=== PATIENT | male | born 1955 | race Caucasian/White ===

== ENCOUNTER 2016-03-19 09:49 | Day surgery (SDC) | payer OTHER ==
[2016-03-19 10:35] LABS: Mean Platelet Volume 7.4
[2016-03-19 10:36] LABS: INR 1.2 (<1.1); Prothrombin Time 12.3 sec (9.0-12.0)
[2016-03-19 11:51] VITALS: RESP 18; TEMP 98.1
[2016-03-19 13:24] VITALS: BP 133/76; PULSE 97
--- NOTE | 2016-03-19 14:08 | US ---
EXAMINATION TYPE: US paracentesis abd w/image DATE OF EXAM: 03/19/2016 1:19 PM COMPARISON: NONE HISTORY: Ascites. PROCEDURE: Maximal barrier technique was utilized. The skin overlying a suitable pocket of fluid was localized with ultrasound and the overlying skin was prepped and draped. Ultrasound was utilized with sterile technique. Lidocaine was used for local anesthesia and a skin gilbert made with a scalpel. Catheter was advanced under direct ultrasound guidance into a suitable pocket of fluid and approximately 9 liters of serous fluid were removed. Catheter was withdrawn and hemostasis achieved. There is no immediate complication; the patient is discharged in stable condition. IMPRESSION: STATUS POST ULTRASOUND GUIDED PARACENTESIS FOR PALLIATION OF ASCITES. THIS PROCEDURE WA S PERFORMED BY THE UNDERSIGNED.
== END 2016-03-19 13:26 | disposition home or self-care (01) ==
LOC: RADPROMAIN 09:49
PROVIDERS: ATTEND Family Medicine
DX: R18.8 Other ascites (principal)
CPT/HCPCS: 36415; 49083; 85049; 85610

== ENCOUNTER 2016-04-09 10:15 | Day surgery (SDC) | payer OTHER ==
[2016-04-09 10:33] VITALS: RESP 14; TEMP 97.7
[2016-04-09 10:35] LABS: Mean Platelet Volume 7.7
[2016-04-09 10:45] LABS: Non-African American GFR(MDRD) >60 (>60 ml/min/1.73 sqM)
[2016-04-09 10:47] LABS: INR 1.2 (<1.1)
[2016-04-09 12:38] VITALS: BP 153/77; PULSE 76
--- NOTE | 2016-04-09 14:44 | US ---
EXAMINATION TYPE: US paracentesis abd w/image DATE OF EXAM: 04/09/2016 1:04 PM COMPARISON: NONE HISTORY: Ascites. PROCEDURE: Maximal barrier technique was utilized. The skin overlying a suitable pocket of fluid was localized with ultrasound and the overlying skin was prepped and draped. Ultrasound was utilized with sterile technique. Lidocaine was used for local anesthesia and a skin gilbert made with a scalpel. Catheter was advanced under direct ultrasound guidance into a suitable pocket of fluid and approximately 7 liters of serous fluid were removed. Catheter was withdrawn and hemostasis achieved. There is no immediate complication; the patient is discharged in stable condition. IMPRESSION: STATUS POST ULTRASOUND GUIDED PARACENTESIS FOR PALLIATION OF ASCITES. THIS PROCEDURE WA S PERFORMED BY THE UNDERSIGNED.
== END 2016-04-09 13:15 | disposition home or self-care (01) ==
LOC: RADPROMAIN 10:15
PROVIDERS: ATTEND Family Medicine
DX: R18.8 Other ascites (principal); Z88.5 Allergy status to narcotic agent; Z88.8 Allergy status to other drugs, medicaments and biological substances
CPT/HCPCS: 49083; 82565; 82947; 85049; 85610

== ENCOUNTER 2016-04-30 08:28 | Day surgery (SDC) | payer OTHER ==
[~2016-04-30 08:28] MED LIST: SODIUM BICARB 4% 5 ML VIAL (0.48 MEQ/ML) MISCELLANE PRN
[2016-04-30 09:05] VITALS: RESP 20; TEMP 97.7
[2016-04-30 09:14] LABS: Mean Platelet Volume 7.9
[2016-04-30 09:23] LABS: Non-African American GFR(MDRD) >60 (>60 ml/min/1.73 sqM)
[2016-04-30 09:28] LABS: INR 1.2 (<1.1); Prothrombin Time 12.1 sec (9.0-12.0)
[2016-04-30 11:51] VITALS: BP 119/68; PULSE 99
--- NOTE | 2016-04-30 11:53 | US ---
EXAMINATION TYPE: US paracentesis abd w/image DATE OF EXAM: 04/30/2016 11:50 AM CLINICAL HISTORY: Ascites The procedure was discussed with the patient. The risks, complications, benefits, and alternatives we re discussed and any questions were answered. Informed consent was obtained. The patient was placed s upine on the ultrasound table and prepped and draped in the usual sterile fashion. All elements of maximal barrier technique were utilized. Under ultrasound guidance, access into the right lower quadrant was obtained, via the paracentesis catheter system and direct ultrasound guidanc e. Approximately 9.1 liters of straw-colored fluid was removed. The patient was stable throughout the pr ocedure and remained stable upon discharge from Department of Radiology. IMPRESSION: Successful therapeutic paracentesis under ultrasound guidance.
== END 2016-04-30 12:10 | disposition home or self-care (01) ==
LOC: RADPROMAIN 08:28
PROVIDERS: ATTEND Family Medicine
DX: R18.8 Other ascites (principal); Z88.5 Allergy status to narcotic agent; Z88.8 Allergy status to other drugs, medicaments and biological substances
CPT/HCPCS: 36415; 49083; 82565; 85049; 85610

== ENCOUNTER 2016-05-20 11:40 | Day surgery (SDC) | payer OTHER ==
[2016-05-20 12:58] LABS: Mean Platelet Volume 7.9
[2016-05-20 12:59] LABS: Non-African American GFR(MDRD) >60 (>60 ml/min/1.73 sqM)
[2016-05-20 13:00] LABS: INR 1.3 (<1.1); Prothrombin Time 12.4 sec (9.0-12.0)
[2016-05-20 13:12] VITALS: RESP 16; TEMP 98.3
[2016-05-20 13:50] LABS: Glucose,Whole Blood 78 mg/dL (75-99)
--- NOTE | 2016-05-20 15:04 | US ---
Therapeutic paracentesis. CLINICAL HISTORY: Ascites The procedure was discussed with the patient. The risks, complications, benefits, and alternatives we re discussed and any questions were answered. Informed consent was obtained. The patient was placed s upine on the ultrasound table and prepped and draped in the usual sterile fashion. All elements of maximal barrier technique were utilized. Under ultrasound guidance, access into the right lower quadrant was obtained, via the paracentesis catheter system and direct ultrasound guidanc e. Approximately 8.8 liters of straw-colored fluid was removed. The patient was stable throughout the pr ocedure and remained stable upon discharge from Department of Radiology. IMPRESSION: Successful therapeutic paracentesis under ultrasound guidance.
[2016-05-20 15:20] VITALS: BP 131/77; PULSE 79
== END 2016-05-20 15:20 | disposition home or self-care (01) ==
LOC: RADPROMAIN 11:40
PROVIDERS: ATTEND Family Medicine
DX: R18.8 Other ascites (principal)
CPT/HCPCS: 36415; 49083; 82565; 85049; 85610

== ENCOUNTER 2016-06-05 12:07 | Day surgery (SDC) | payer OTHER ==
[2016-06-05 12:48] LABS: Mean Platelet Volume 7.4
[2016-06-05 12:56] LABS: INR 1.2 (<1.1); Prothrombin Time 12.1 sec (9.0-12.0)
[2016-06-05 15:01] VITALS: RESP 16; TEMP 97.8
--- NOTE | 2016-06-05 16:21 | US ---
EXAMINATION TYPE: US paracentesis abd w/image DATE OF EXAM: 06/05/2016 4:15 PM COMPARISON: NONE HISTORY: Ascites. PROCEDURE: Maximal barrier technique was utilized. The skin overlying a suitable pocket of fluid was localized with ultrasound and the overlying skin was prepped and draped. Ultrasound was utilized with sterile technique. Lidocaine was used for local anesthesia and a skin gilbert made with a scalpel. Catheter was advanced under direct ultrasound guidance into a suitable pocket of fluid and approximately 8 liters of serous fluid were removed. Catheter was withdrawn and hemostasis achieved. There is no immediate complication; the patient is discharged in stable condition. IMPRESSION: STATUS POST ULTRASOUND GUIDED PARACENTESIS FOR PALLIATION OF ASCITES. THIS PROCEDURE WA S PERFORMED BY THE UNDERSIGNED.
[2016-06-05 16:56] VITALS: BP 122/78; PULSE 74
== END 2016-06-05 15:35 | disposition home or self-care (01) ==
LOC: RADPROMAIN 12:07
PROVIDERS: ATTEND Family Medicine
DX: R18.8 Other ascites (principal)
CPT/HCPCS: 49083; 85049; 85610

== ENCOUNTER 2016-06-16 12:27 | Observation (INO) | payer OTHER ==
[2016-06-16] MEDS ORDERED: NITROGLYCERIN OINT 1 INCH/GM PACKET TOPICAL STA (13:47)
[2016-06-16] MEDS ORDERED: ASPIRIN 81 MG CHEW PO STA (13:47)
[2016-06-16] MEDS ORDERED: MORPHINE SULFATE 4 MG/ML SYRINGE IV STA (13:47)
[2016-06-16] MEDS ORDERED: ONDANSETRON 4 MG/2 ML VIAL IVP STA (13:47)
[2016-06-16] MEDS ORDERED: IPRATROPIUM-ALBUTEROL 3 ML NEB INHALATION STA (13:49)
--- NOTE | 2016-06-16 14:06 | XR ---
EXAMINATION TYPE: XR chest 2V DATE OF EXAM: 06/16/2016 1:59 PM COMPARISON: 03/07/2016 TECHNIQUE: PA and lateral views submitted. HISTORY: Chest pain FINDINGS: The lungs are clear and there is no pneumothorax, pleural effusion, or focal pneumonia. Previous fuentes rgery overlying the cervical spine. Arthropathy of the shoulders with probable calcific tendinosis on the left. Cardiomegaly is noted. Prominence of the hilum likely related to pulmonary arterial hypertension appe ars stable. Coarsened interstitium noted. IMPRESSION: 1. Coarsened interstitial pattern likely chronic correlate for mild interstitial chronic lung disease including pulmonary fibrosis. No acute infiltrate. 2. Hilar prominence stable dating back to 04/25/2014 likely in the basis of pulmonary arterial hyperte nsion. Correlate clinically.
[2016-06-16 14:18] LABS: Basophils % (A) 0 %; CH 30.2; CHCM 32.3; Eosinophils # (A) 0.1 k/uL (0-0.7); Eosinophils % (A) 1 %; HCT 48.3 % (39.0-53.0); HDW 2.18; HGB 15.7 gm/dL (13.0-17.5); Luc # (Auto) 0.19; Luc % (Auto) 2; Lymphocytes # (A) 1.2 k/uL (1.0-4.8); Lymphocytes % (A) 15 %; MCH 30.4 pg (25.0-35.0); MCHC 32.4 g/dL (31.0-37.0); Mean Platelet Volume 7.4; Monocytes # (A) 0.7 k/uL (0-1.0); Monocytes % (A) 9 %; Neutrophils # (A) 6.1 k/uL (1.3-7.7); Neutrophils % (A) 73 %; RBC 5.14 m/uL (4.30-5.90); RDW 14.7 % (11.5-15.5); WBC 8.3 k/uL (3.8-10.6); WBC (Perox) 7.99
[2016-06-16 14:21] LABS: INR 1.2 (<1.1); Partial Thromboplastin Time 26.2 sec (22.0-30.0); Prothrombin Time 11.6 sec (9.0-12.0)
[2016-06-16 14:34] LABS: ALT 31 U/L (21-72); AST 35 U/L (17-59); Alkaline Phosphatase 210 U/L (38-126); Anion Gap 10 mmol/L; Blood Urea Nitrogen 13 mg/dL (9-20); Calcium 9.2 mg/dL (8.4-10.2); Carbon Dioxide 28 mmol/L (22-30); Chloride 102 mmol/L (98-107); Glucose 98 mg/dL (74-99); Magnesium 1.8 mg/dL (1.6-2.3); Non-African American GFR(MDRD) >60 (>60 ml/min/1.73 sqM); Potassium 4.6 mmol/L (3.5-5.1); Sodium 140 mmol/L (137-145); Total Protein 5.9 g/dL (6.3-8.2)
[2016-06-16 14:55] LABS: Troponin I 0.021 ng/mL (0.000-0.034)
[2016-06-16 14:59] LABS: Creatine Kinase MB 5.2 ng/mL (0.0-2.4)
--- NOTE | 2016-06-16 15:03 | US ---
EXAMINATION TYPE: US venous doppler duplex LE BI DATE OF EXAM: 06/16/2016 2:44 PM COMPARISON: NONE CLINICAL HISTORY: Pain. SIDE PERFORMED: Bilateral VESSELS IMAGED: External Iliac Vein (EIV) Common Femoral Vein Deep Femoral Vein Greater Saphenous Vein * Femoral Vein Popliteal Vein Proximal Calf Veins (* superficial vessels) Right Leg: Negative for DVT Left Leg: Negative for DVT No popliteal fossa lesion is seen. IMPRESSION: THIS EXAMINATION IS NEGATIVE FOR DVT IN BOTH LEGS.
[2016-06-16] MEDS ORDERED: RX INFO: IV CONTRAST WAS GIVEN 1 EACH MISC MISCELLANE PRN (15:56)
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
--- NOTE | 2016-06-16 17:29 | CT ---
EXAMINATION TYPE: CT angio chest DATE OF EXAM: 06/16/2016 5:14 PM COMPARISON: NONE HISTORY: Productive cough and chest discomfort CT DLP: 412 mGycm Automated exposure control for dose reduction was used. CONTRAST: CTA scan of the thorax is performed with IV Contrast, patient injected with 100 mL of Omnipaque 300, pulmonary embolism protocol. . FINDINGS: There are 3-D post processed images. Heart is enlarged. There is atherosclerotic vascular calcification. There are large central pulmonary arteries. There are filling defects in the right lower lobe pulmonary artery. There is calcified lymph nodes in the mediastinum. There are no hilar masses. There is coarse interst itial pulmonary density. I see no pulmonary mass. There is no pleural effusion. There is a large amou nt of ascites fluid noted. IMPRESSION: RIGHT LOWER LOBE MULTIPLE PULMONARY EMBOLI. EMBOLI APPEAR DECREASED COMPARED TO THE LAST CT SCAN OF 1 05/08/2015. CARDIOMEGALY. ATHEROSCLEROTIC VASCULAR DISEASE. 4 CM ANEURYSM OF THE ASCENDING AORTA. HEAL ED GRANULOMATOUS DISEASE. ASCITES. I SEE NO NEW PULMONARY EMBOLI COMPARED TO LAST CT SCAN OF 03/07/20 16. PULMONARY FIBROTIC CHANGES.
[2016-06-16] MEDS ORDERED: NITROGLYCERIN SL TABS 0.4 MG TAB SUBLINGUAL PRN (17:34)
[2016-06-16] MEDS ORDERED: ALBUTEROL NEBULIZED 2.5 MG/3 ML INHALATION PRN (17:39)
[2016-06-16] MEDS ORDERED: IPRATROPIUM-ALBUTEROL 3 ML NEB INHALATION PRN (17:39)
[2016-06-16] MEDS: MORPHINE SULFATE 4 MG/ML SYRINGE IV PRN ×2 (18:24→21:28)
[2016-06-16] MEDS ORDERED: metFORMIN 500 MG TAB PO SCH (18:30)
[2016-06-16 20:43] LABS: Troponin I 0.016 ng/mL (0.000-0.034)
[2016-06-16 20:49] LABS: Creatine Kinase MB 4.4 ng/mL (0.0-2.4)
[2016-06-16] MEDS ORDERED: ENOXAPARIN 120 MG/0.8 ML SYRINGE SQ SCH (21:00)
[2016-06-16] MEDS ORDERED: ATORVASTATIN 80 MG TAB PO SCH (21:00)
[2016-06-16 21:02] LABS: Glucose,Whole Blood 123 mg/dL (75-99)
[2016-06-16] MEDS: HYDROcodone/APAP 10-325MG 1 EACH TAB PO PRN (21:31)
[2016-06-16] MEDS: NITROGLYCERIN OINT 1 INCH/GM PACKET TOPICAL SCH (21:33)
[2016-06-16] MEDS: SPIRONOLACTONE 25 MG TAB PO SCH (21:35)
[2016-06-16] MEDS: METOPROLOL TARTRATE 50 MG TAB PO SCH (21:35)
[2016-06-16] MEDS: CYCLOBENZAPRINE 10 MG TAB PO SCH (21:35)
[2016-06-16] MEDS: FAMOTIDINE 20 MG TAB PO SCH (21:35)
[2016-06-16] MEDS: INSULIN LISPRO (humaLOG) 300 UNIT/3 ML VIAL SQ SCH (21:36)
[2016-06-16] MEDS: FUROSEMIDE 40 MG TAB PO SCH (21:36)
[2016-06-17 00:11] LABS: Hemoglobin A1C 6.5 % (4.2-6.1)
[2016-06-17] MEDS: MORPHINE SULFATE 4 MG/ML SYRINGE IV PRN ×3 (01:13→10:57)
[2016-06-17 02:19] LABS: Troponin I 0.013 ng/mL (0.000-0.034)
[2016-06-17] MEDS: HYDROcodone/APAP 10-325MG 1 EACH TAB PO PRN (02:34)
[2016-06-17] MEDS: NITROGLYCERIN OINT 1 INCH/GM PACKET TOPICAL SCH ×2 (02:45→08:36)
[2016-06-17 06:43] LABS: Glucose,Whole Blood 94 mg/dL (75-99)
[2016-06-17] MEDS ORDERED: metFORMIN 500 MG TAB PO SCH (07:30)
[2016-06-17] MEDS ORDERED: PANTOPRAZOLE 40 MG TABLET PO SCH (09:00)
[2016-06-17] MEDS ORDERED: ASPIRIN 325 MG TAB PO SCH (09:00)
[2016-06-17] MEDS ORDERED: LISINOPRIL 20 MG TAB PO SCH (09:00)
[2016-06-17 09:55] LABS: Cholesterol 164 mg/dL (<200); HDL Cholesterol 45 mg/dL (40-60); Triglycerides 74 mg/dL (<150)
[2016-06-17] MEDS ORDERED: ENOXAPARIN 120 MG/0.8 ML SYRINGE SQ ONE (10:00)
[2016-06-17] MEDS: INSULIN LISPRO (humaLOG) 300 UNIT/3 ML VIAL SQ SCH (10:54)
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
[2016-06-17] MEDS: FAMOTIDINE 20 MG TAB PO SCH (11:01)
[2016-06-17] MEDS: SPIRONOLACTONE 25 MG TAB PO SCH (11:01)
[2016-06-17] MEDS: METOPROLOL TARTRATE 50 MG TAB PO SCH (11:01)
--- NOTE | 2016-06-17 11:01 | P.DS ---
Providers Date of admission: 06/16/16 17:41 Expected date of discharge: 06/17/16 Attending physician: Andrews Escobar Primary care physician: Andrews Escobar Hospital Course: Patient was admitted to observation for cardiology consultation regarding chest pain. Patient was cleared by cardiology to follow-up with cardiology next week. Patient has an appointment at 1:00 with ENT regarding biopsy to throat anxious to go down for that appointment. 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 Patient Condition at Discharge: Fair Plan - Discharge Summary Discharge Medication List metFORMIN HCL [Glucophage] 1,000 mg PO PC-SUPPER 11/29/13 [History] Hydrocodone/Acetaminophen [[place] 10-325] 1 tab PO Q4H PRN 02/01/14 [History] Ipratropium/Albuterol Sulfate [Combivent Respimat Inhaler] 1 puff INHALATION RT- TID PRN 02/01/14 [History] Metoprolol Tartrate [Lopressor] 50 mg PO BID #60 tab 02/07/14 [Rx] Atorvastatin [Lipitor] 80 mg PO HS 04/13/14 [History] Omeprazole [PriLOSEC] 20 mg PO BID #60 capsule.dr 04/27/14 [Rx] Cyclobenzaprine [Flexeril] 10 mg PO TID 05/10/14 [History] metFORMIN HCL [Glucophage] 500 mg PO QAM 05/10/14 [History] Albuterol Inhaler [Ventolin Hfa Inhaler] 1 puff INHALATION RT-Q6H PRN 10/27/15 [ History] Insulin Aspart [NovoLOG] See Protocol SQ AC-TID 10/27/15 [History] Ranitidine HCl 150 mg PO BID 10/27/15 [History] Spironolactone [Aldactone] 25 mg PO BID 01/24/16 [History] Furosemide [Lasix] 40 mg PO BID #60 tablet 03/09/16 [Rx] Enoxaparin [Lovenox] 120 mg SQ BID 04/30/16 [History] Aspirin 325 mg PO DAILY 06/05/16 [History] Lisinopril [Prinivil] 20 mg PO DAILY 06/16/16 [History] Follow up Appointment(s)/Referral(s): Andrews Escobar MD [Primary Care Provider] - 1-2 days
[2016-06-17] MEDS: CYCLOBENZAPRINE 10 MG TAB PO SCH (11:02)
[2016-06-17] MEDS: FUROSEMIDE 40 MG TAB PO SCH (11:02)
[2016-06-17 12:03] LABS: Glucose,Whole Blood 110 mg/dL (75-99)
--- NOTE | 2016-06-17 12:24 | CONS ---
DATE OF CONSULTATION: Silvino Monet, a 61-year-old gentleman with ischemic cardiomyopathy, chronic congestive heart failure, chronic atrial fibrillation and history of DVT, hyperlipidemia, on Lovenox injections sees Dr. Jamaica Mayers in the outpatient setting. He came into the hospital mainly with an episode of pressure in his chest. His ascites had increased. Very recently he had vocal cord issues and had a biopsy performed. He sees Dr. Escobar in the outpatient setting. The quality of the pain seems somewhat pleuritic and there was also a sharp component to it. Two to three days ago, he had a vocal cord biopsy and he is supposed to go for a follow-up appointment at 1 p.m. today. His pain is atypical. Troponins are normal. D-dimer was elevated and a CT angiography does not reveal any new pulmonary embolism. He takes Lovenox twice a day at home. Denies any pain at this time. The pressure in the chest is probably from his ascites and he has this periodic drainage for his ascites, which is thought to be either a primary liver etiology oropharynx secondary to cardiac issues. However, there is no acute problem myocardial ischemia on this presentation. He is resting comfortably. I am recommending that he should have IV diuretic today. Continue his same medications go and have his assessment postop for vocal biopsy since the patient has a concern that this may be malignancy. I advised him to keep that appointment at 1 p.m. today and then follow up with Dr. Jamaica Mayers in about a week or so. Patient has a history of CAD, previous [place], PCI, ischemic cardiomyopathy, but no acute ongoing myocardial ischemia. His troponins are normal. PAST MEDICAL HISTORY: 1. Chronic ischemic cardiomyopathy. 2. History of prior PCI. 3. Type 2 diabetes mellitus. 4. Chronic atrial fibrillation. 5. Hypertension. 6. History of some vocal cord issues for which he recently had a biopsy. Medications at home include Lovenox injections, Aldactone, aspirin, Prinivil, Lopid, Lipitor, metformin and albuterol inhaler, Lasix 40 mg b.i.d., metoprolol 50 mg b.i.d. and Prinivil 20 mg daily. ALLERGIES: CODEINE and TORADOL. On examination, blood pressure is 110/70, pulse rate 70 per minute, irregular. HEENT: Unremarkable. Fundus was not examined by me. Neck is supple. There is JVD of 1 cm. No carotid bruit. Heart exam reveals S1 and S2 heard normally with irregular rhythm and short systolic murmur. Lungs revealed diminished air entry over bases. Abdomen is distended, presence of ascites is noted, which is not acute, which is chronic. The lower extremities reveal diminished pulses. CENTRAL NERVOUS SYSTEM: Grossly no focal deficits. IMPRESSION: 1. Atypical chest pain with normal troponins. 2. Known ischemic cardiomyopathy. 3. History of cirrhosis of the liver of unclear etiology with periodic paracentesis. 4. History of chronic atrial fibrillation on Lovenox injections at this time. 5. History of ischemic cardiomyopathy without overt congestive heart failure at this time. RECOMMENDATIONS: I am recommending that we give him IV Lasix 40 mg in addition to his usual dose, put a Hep-Lock, increase activity, and discharge him so that he can go to the appointment as a followup for the results of his laryngeals/vocal cord biopsy. He is advised to follow up with Dr. Jamaica Mayers in 2 weeks and keep his appointment for paracentesis that is already scheduled. There is no evidence of acute ongoing myocardial ischemia at this time. Thank you very much for the consult.
[2016-06-17 12:26] VITALS: BP 138/63; PULSE 79; RESP 16; TEMP 97.4
== END 2016-06-17 12:10 | disposition home or self-care (01) ==
LOC: EC 12:27 → 3OBS 17:41
PROVIDERS: ADMIT Family Medicine; ATTEND Family Medicine
DX: R07.89 Other chest pain (principal); R18.8 Other ascites; I25.5 Ischemic cardiomyopathy; K74.60 Unspecified cirrhosis of liver; I48.2 Chronic atrial fibrillation; I50.9 Heart failure, unspecified; I11.0 Hypertensive heart disease with heart failure; I25.2 Old myocardial infarction; E11.9 Type 2 diabetes mellitus without complications; M54.9 Dorsalgia, unspecified; F41.9 Anxiety disorder, unspecified; F17.210 Nicotine dependence, cigarettes, uncomplicated; Z79.84 Long term (current) use of oral hypoglycemic drugs; Z79.899 Other long term (current) drug therapy; Z79.82 Long term (current) use of aspirin; Z88.5 Allergy status to narcotic agent; Z88.8 Allergy status to other drugs, medicaments and biological substances; I69.354 Hemiplegia and hemiparesis following cerebral infarction affecting left non-dominant side; Z86.711 Personal history of pulmonary embolism; Z79.01 Long term (current) use of anticoagulants; Z95.5 Presence of coronary angioplasty implant and graft; I71.2 Thoracic aortic aneurysm, without rupture; R79.89 Other specified abnormal findings of blood chemistry; Z86.718 Personal history of other venous thrombosis and embolism; I25.10 Atherosclerotic heart disease of native coronary artery without angina pectoris; E78.5 Hyperlipidemia, unspecified; D71 Functional disorders of polymorphonuclear neutrophils; M79.89 Other specified soft tissue disorders
CPT/HCPCS: 96374; 96375; 99285; 36415; 94640 ×2; 93005; 85379; 83880; 80061; 80053; 83036; 82550 ×2; 82553 ×2; 83735; 84484 ×2; 85025; 85610; 85730; 87040; 71020; 93970; 71275; G0378 ×2; J2270 ×2; J2405; J1650; Q9967; 96372; 96376

== ENCOUNTER 2016-06-25 12:12 | Day surgery (SDC) | payer OTHER ==
[2016-06-25 12:56] LABS: Mean Platelet Volume 7.6
[2016-06-25 13:16] VITALS: RESP 16; TEMP 98.3
[2016-06-25 13:20] LABS: INR 1.2 (<1.1); Prothrombin Time 12.3 sec (9.0-12.0)
[2016-06-25 15:36] VITALS: BP 148/72; PULSE 100
--- NOTE | 2016-06-25 16:02 | US ---
Therapeutic paracentesis. CLINICAL HISTORY: Ascites The procedure was discussed with the patient. The risks, complications, benefits, and alternatives we re discussed and any questions were answered. Informed consent was obtained. The patient was placed s upine on the ultrasound table and prepped and draped in the usual sterile fashion. All elements of maximal barrier technique were utilized. Under ultrasound guidance, access into the right lower quadrant was obtained, via the paracentesis catheter system and direct ultrasound guidanc e. Approximately 7.2 liters of straw-colored fluid was removed. The patient was stable throughout the pr ocedure and remained stable upon discharge from Department of Radiology. IMPRESSION: Successful therapeutic paracentesis under ultrasound guidance.
== END 2016-06-25 15:25 | disposition home or self-care (01) ==
LOC: RADPROMAIN 12:12
PROVIDERS: ATTEND Family Medicine
DX: R18.8 Other ascites (principal)
CPT/HCPCS: 36415; 49083; 85049; 85610

== ENCOUNTER 2016-07-08 00:30 | Observation (INO) | payer OTHER ==
[2016-07-08] MEDS ORDERED: NITROGLYCERIN OINT 1 INCH/GM PACKET TOPICAL STA (01:05)
[2016-07-08] MEDS ORDERED: ASPIRIN 81 MG CHEW PO STA (01:05)
[2016-07-08] MEDS ORDERED: NITROGLYCERIN SL TABS 0.4 MG TAB SUBLINGUAL STA (01:05)
[2016-07-08] MEDS ORDERED: ONDANSETRON 4 MG/2 ML VIAL IVP STA (01:06)
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
[2016-07-08 01:29] LABS: Basophils # (A) 0.1 k/uL (0-0.2); Basophils % (A) 1 %; CH 29.9; CHCM 32.4; Eosinophils # (A) 0.2 k/uL (0-0.7); Eosinophils % (A) 3 %; HCT 46.5 % (39.0-53.0); HDW 2.29; HGB 15.5 gm/dL (13.0-17.5); Luc # (Auto) 0.15; Luc % (Auto) 2; Lymphocytes % (A) 13 %; MCH 30.9 pg (25.0-35.0); MCHC 33.4 g/dL (31.0-37.0); MCV 92.5 fL (80.0-100.0); Mean Platelet Volume 7.1; Monocytes # (A) 0.6 k/uL (0-1.0); Monocytes % (A) 8 %; Neutrophils # (A) 5.7 k/uL (1.3-7.7); Neutrophils % (A) 74 %; RBC 5.03 m/uL (4.30-5.90); RDW 13.9 % (11.5-15.5); WBC 7.7 k/uL (3.8-10.6); WBC (Perox) 7.63
[2016-07-08 01:34] LABS: INR 1.1 (<1.1); Prothrombin Time 11.4 sec (9.0-12.0)
[2016-07-08 01:45] LABS: ALT 35 U/L (21-72); AST 32 U/L (17-59); Alkaline Phosphatase 196 U/L (38-126); Anion Gap 8 mmol/L; Blood Urea Nitrogen 19 mg/dL (9-20); Calcium 8.8 mg/dL (8.4-10.2); Carbon Dioxide 26 mmol/L (22-30); Chloride 104 mmol/L (98-107); Glucose 121 mg/dL (74-99); Magnesium 1.9 mg/dL (1.6-2.3); Non-African American GFR(MDRD) >60 (>60 ml/min/1.73 sqM); Potassium 4.3 mmol/L (3.5-5.1); Sodium 138 mmol/L (137-145); Total Bilirubin 0.7 mg/dL (0.2-1.3); Total Protein 5.9 g/dL (6.3-8.2)
[2016-07-08 01:59] LABS: Troponin I 0.015 ng/mL (0.000-0.034)
[2016-07-08 02:10] LABS: Creatine Kinase MB 5.3 ng/mL (0.0-2.4)
--- NOTE | 2016-07-08 02:25 | XR ---
EXAM: XR Chest, 2 Views. CLINICAL HISTORY: Reason: Chest Pain TECHNIQUE: Frontal and lateral views of the chest. COMPARISON: 06/16/16. FINDINGS: Lungs: Stable appearance of the lungs with coarse interstitial changes. Pleural spaces: Unremarkable. No pneumothorax. Heart: Stable enlarged cardiac silhouette. Mediastinum: Stable hilar prominence. Bones/joints: No acute fracture. Cervical hardware noted. IMPRESSION: Stable exam with redemonstration of coarsened interstitial changes and hilar prominence.
[2016-07-08] MEDS ORDERED: NITROGLYCERIN SL TABS 0.4 MG TAB SUBLINGUAL PRN (03:03)
[2016-07-08 04:26] LABS: Glucose,Whole Blood 106 mg/dL (75-99)
[2016-07-08] MEDS ORDERED: HYDROcodone/APAP 10-325MG 1 EACH TAB PO PRN ×2 (05:00→10:55)
[2016-07-08 05:29] LABS: Troponin I 0.018 ng/mL (0.000-0.034)
[2016-07-08 05:38] VITALS: BMI 29.1
[2016-07-08 07:41] LABS: Hemoglobin A1C 6.6 % (4.2-6.1)
[2016-07-08 07:42] LABS: Glucose,Whole Blood 96 mg/dL (75-99)
[2016-07-08] MEDS: INSULIN LISPRO (humaLOG) 300 UNIT/3 ML VIAL SQ SCH ×4 (08:19→21:29)
[2016-07-08] MEDS ORDERED: ALBUTEROL INHALER 60 PUFF/8 GM INHALER INHALATION PRN (10:55)
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
[2016-07-08] MEDS: HYDROmorphone 1 MG/ML 1 ML SYRINGE IVP PRN ×3 (11:46→23:31)
[2016-07-08 12:22] LABS: Glucose,Whole Blood 108 mg/dL (75-99)
[2016-07-08 14:18] LABS: Troponin I 0.019 ng/mL (0.000-0.034)
[2016-07-08 14:23] LABS: Creatine Kinase MB 4.3 ng/mL (0.0-2.4)
[2016-07-08] MEDS: IPRATROPIUM-ALBUTEROL 3 ML NEB INHALATION PRN (15:33)
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
[2016-07-08] MEDS: CYCLOBENZAPRINE 10 MG TAB PO SCH ×2 (17:59→21:28)
[2016-07-08] MEDS: PANTOPRAZOLE 40 MG TABLET PO SCH (17:59)
[2016-07-08] MEDS ORDERED: metFORMIN 500 MG TAB PO SCH (18:30)
[2016-07-08] MEDS ORDERED: ATORVASTATIN 80 MG TAB PO SCH (21:00)
[2016-07-08] MEDS: SPIRONOLACTONE 25 MG TAB PO SCH (21:27)
[2016-07-08] MEDS: METOPROLOL TARTRATE 50 MG TAB PO SCH (21:28)
[2016-07-08] MEDS: FAMOTIDINE 20 MG TAB PO SCH (21:28)
[2016-07-08] MEDS: ENOXAPARIN 120 MG/0.8 ML SYRINGE SQ SCH (21:30)
[2016-07-08 21:40] LABS: Glucose,Whole Blood 147 mg/dL (75-99)
[2016-07-08 22:08] LABS: Cholesterol 175 mg/dL (<200); HDL Cholesterol 42 mg/dL (40-60); Triglycerides 67 mg/dL (<150)
[2016-07-09] MEDS: HYDROmorphone 1 MG/ML 1 ML SYRINGE IVP PRN (05:36)
[2016-07-09 06:27] LABS: Glucose,Whole Blood 113 mg/dL (75-99)
[2016-07-09] MEDS: INSULIN LISPRO (humaLOG) 300 UNIT/3 ML VIAL SQ SCH ×2 (06:28→12:12)
[2016-07-09] MEDS: PANTOPRAZOLE 40 MG TABLET PO SCH (06:36)
[2016-07-09] MEDS: FAMOTIDINE 20 MG TAB PO SCH (08:15)
[2016-07-09] MEDS: METOPROLOL TARTRATE 50 MG TAB PO SCH (08:15)
[2016-07-09] MEDS: SPIRONOLACTONE 25 MG TAB PO SCH (08:15)
[2016-07-09] MEDS: CYCLOBENZAPRINE 10 MG TAB PO SCH (08:16)
[2016-07-09] MEDS: ENOXAPARIN 120 MG/0.8 ML SYRINGE SQ SCH (08:16)
[2016-07-09] MEDS ORDERED: ASPIRIN 325 MG TAB PO SCH ×2 (09:00)
[2016-07-09] MEDS ORDERED: metFORMIN 500 MG TAB PO SCH (09:00)
[2016-07-09] MEDS ORDERED: LISINOPRIL 20 MG TAB PO SCH (09:00)
[2016-07-09 09:18] VITALS: RESP 18
--- NOTE | 2016-07-09 10:58 | P.DS ---
Providers Date of admission: 07/08/16 03:04 Expected date of discharge: 07/09/16 Attending physician: Andrews Escobar Primary care physician: Andrews Escobar Hospital Course: 61-year-old male was admitted to the emergency room with complaints of chest pain. Patient does have a history of chronic abdominal ascites. He will develop pain radiating the chest from the pressure from the ascites. Patient is due for paracentesis in the 2 weeks patient was evaluated by cardiology and cleared for discharge Assessment Atypical chest pain History of coronary artery disease with IA and stent History of CVA/TIA Chronic abdominal ascites Diabetes type 2 History of DVT and pulmonary embolism Chronic back pain opioid dependent Cardiomyopathy ejection fraction 25-30% Atrial fibrillation Plan Follow-up with family physician cardiology Return for paracentesis Plan - Discharge Summary Discharge Medication List metFORMIN HCL [Glucophage] 1,000 mg PO PC-SUPPER 11/29/13 [History] Hydrocodone/Acetaminophen [[place] 10-325] 1 tab PO Q4H PRN 02/01/14 [History] Ipratropium/Albuterol Sulfate [Combivent Respimat Inhaler] 1 puff INHALATION RT- TID PRN 02/01/14 [History] Metoprolol Tartrate [Lopressor] 50 mg PO BID #60 tab 02/07/14 [Rx] Atorvastatin [Lipitor] 80 mg PO HS 04/13/14 [History] Omeprazole [PriLOSEC] 20 mg PO BID #60 capsule.dr 04/27/14 [Rx] Cyclobenzaprine [Flexeril] 10 mg PO TID 05/10/14 [History] metFORMIN HCL [Glucophage] 500 mg PO QAM 05/10/14 [History] Albuterol Inhaler [Ventolin Hfa Inhaler] 1 puff INHALATION RT-Q6H PRN 10/27/15 [ History] Insulin Aspart [NovoLOG] See Protocol SQ AC-TID 10/27/15 [History] Ranitidine HCl 150 mg PO BID 10/27/15 [History] Spironolactone [Aldactone] 25 mg PO BID 01/24/16 [History] Enoxaparin [Lovenox] 120 mg SQ BID 04/30/16 [History] Lisinopril [Prinivil] 20 mg PO DAILY 06/16/16 [History] Follow up Appointment(s)/Referral(s): Andrews Escobar MD [Primary Care Provider] - 1-2 days
[2016-07-09 11:38] VITALS: BP 109/54; TEMP 98.4
[2016-07-09 11:58] LABS: Glucose,Whole Blood 110 mg/dL (75-99)
[2016-07-09] MEDS: IPRATROPIUM-ALBUTEROL 3 ML NEB INHALATION PRN (13:46)
[2016-07-09 13:59] VITALS: PULSE 65
--- NOTE | 2016-07-09 15:02 | P.PN ---
Subjective Principal diagnosis: Atypical chest pain This is a 61-year-old gentleman with history of ischemic cardiomyopathy, chronic congestive heart failure and also chronic atrial fibrillation, hyperlipidemia and history of DVT on Lovenox injections, came to the emergency room with complaints of recurrent chest pains. These pains are not exertional in nature. Patient had several admissions recently for chest pains. The pains are partially relieved within pain medication. His pains are better today. EKGs did not reveal any acute changes. Cardiac enzyme studies are not suggestive of a myocardial infarction. Objective - Vital Signs Vital signs: Vital Signs Temp 98.4 F 07/09/16 11:37 Pulse 65 07/09/16 13:58 Resp 18 07/09/16 11:37 BP 109/54 07/09/16 11:37 Pulse Ox 97 07/09/16 11:37 Intake & Output 07/08/16 07/09/16 07/09/16 18:59 06:59 18:59 Intake Total 480 0 340 Output Total 1000 100 Balance -520 -100 340 Weight 84.368 kg 88.3 kg Intake: Oral 480 0 340 Output: Urine 1000 100 Other: Voiding Method Toilet Toilet Urinal Urinal # Voids 1 - Exam GENERAL EXAM: Patient is alert and oriented and doesn't appear to be in any acute distress HEENT: Normocephalic. Normal reaction of pupils, equal size, normal range of extraocular motion. No erythema or exudates in the throat. NECK: No masses, no nuchal rigidity. CHEST: Expiratory wheezing and rhonchi. LUNGS: Diminished breath sounds HEART: Distant heart sounds ABDOMEN: Ascites with protuberant abdomen SKIN: No rashes CENTRAL NERVOUS SYSTEM: No focal deficits. EXTREMITIES: No cyanosis, clubbing or edema. - Labs CBC & Chem 7: 07/08/16 01:02 07/08/16 01:02 Labs: Abnormal Lab Results - Last 24 Hours (Table) 07/08/16 07/08/16 07/09/16 Range/Units 05:00 21:13 06:23 POC Glucose (mg/dL) 147 H 113 H (75-99) mg/dL LDL Cholesterol, Calc 120 H (0-99) mg/dL 07/09/16 Range/Units 11:54 POC Glucose (mg/dL) 110 H (75-99) mg/dL LDL Cholesterol, Calc (0-99) mg/dL Assessment and Plan (1) Paroxysmal a-fib Status: Acute (2) COPD exacerbation Status: Acute (3) Diabetes Status: Acute (4) HTN (hypertension) Status: Acute (5) History of coronary artery disease Status: Acute (6) History of pulmonary embolism Status: Acute (7) Nicotine dependence Status: Acute (8) Tobacco abuse Status: Acute Plan: From cardiology's perspective, patient may be able to be discharged home. A follow-up appointment will be made with Dr. VC Mayers in the office post discharge. DNP note has been reviewed, I agree with a documented findings and plan of care. Patient was seen and examined.
== END 2016-07-09 15:02 | disposition home or self-care (01) ==
LOC: EC 00:30 → INTOOBSV 03:04 → 6ICU 03:04 → 6SEL 20:14
PROVIDERS: ADMIT Family Medicine; ATTEND Family Medicine
DX: R07.89 Other chest pain (principal); I25.10 Atherosclerotic heart disease of native coronary artery without angina pectoris; R18.8 Other ascites; I25.2 Old myocardial infarction; Z95.5 Presence of coronary angioplasty implant and graft; E11.9 Type 2 diabetes mellitus without complications; Z86.718 Personal history of other venous thrombosis and embolism; G89.29 Other chronic pain; M54.9 Dorsalgia, unspecified; F11.20 Opioid dependence, uncomplicated; I25.5 Ischemic cardiomyopathy; I48.0 Paroxysmal atrial fibrillation; I48.2 Chronic atrial fibrillation; E66.9 Obesity, unspecified; Z68.30 Body mass index [BMI] 30.0-30.9, adult; J44.1 Chronic obstructive pulmonary disease with (acute) exacerbation; I11.0 Hypertensive heart disease with heart failure; I50.9 Heart failure, unspecified; E78.5 Hyperlipidemia, unspecified; Z86.711 Personal history of pulmonary embolism; F17.210 Nicotine dependence, cigarettes, uncomplicated; Z79.84 Long term (current) use of oral hypoglycemic drugs; Z79.899 Other long term (current) drug therapy; Z79.82 Long term (current) use of aspirin; Z79.4 Long term (current) use of insulin; Z79.1 Long term (current) use of non-steroidal anti-inflammatories (NSAID); I69.354 Hemiplegia and hemiparesis following cerebral infarction affecting left non-dominant side; Z79.01 Long term (current) use of anticoagulants
CPT/HCPCS: 96374 ×2; 99285 ×2; 96376 ×2; 96372; 96375; 36415; 94640 ×2; 93005; 80061; 80053; 83036; 82550; 82553; 83735; 84484; 85025; 85610; 85730; 71020; G0378 ×3; J2405; J1650 ×2; J1170 ×2

== ENCOUNTER 2016-07-16 12:18 | Day surgery (SDC) | payer OTHER ==
[2016-07-16 13:09] LABS: Mean Platelet Volume 7.3
[2016-07-16 13:18] VITALS: TEMP 97.8
[2016-07-16 13:18] LABS: Non-African American GFR(MDRD) >60 (>60 ml/min/1.73 sqM)
[2016-07-16 13:22] LABS: INR 1.3 (<1.1); Prothrombin Time 12.7 sec (9.0-12.0)
[2016-07-16 13:41] VITALS: RESP 20
[2016-07-16] MEDS: ALBUMIN HUMAN 25% 50 ML in EMPTY BAG 1 BAG IVPB SCH ×4 (14:04→14:47)
[2016-07-16 15:03] VITALS: BP 140/78; PULSE 95
--- NOTE | 2016-07-16 16:06 | US ---
Therapeutic paracentesis. CLINICAL HISTORY: Ascites The procedure was discussed with the patient. The risks, complications, benefits, and alternatives we re discussed and any questions were answered. Informed consent was obtained. The patient was placed s upine on the ultrasound table and prepped and draped in the usual sterile fashion. All elements of maximal barrier technique were utilized. Under ultrasound guidance, access into the right lower quadrant was obtained, via the paracentesis catheter system and direct ultrasound guidanc e. Approximately 9.25 liters of straw-colored fluid was removed. The patient was stable throughout the p rocedure and remained stable upon discharge from Department of Radiology. IMPRESSION: Successful therapeutic paracentesis under ultrasound guidance.
== END 2016-07-16 15:18 | disposition home or self-care (01) ==
LOC: RADPROMAIN 12:18
PROVIDERS: ATTEND Family Medicine
DX: R18.8 Other ascites (principal); Z79.02 Long term (current) use of antithrombotics/antiplatelets; Z79.82 Long term (current) use of aspirin; Z88.6 Allergy status to analgesic agent; Z88.5 Allergy status to narcotic agent
CPT/HCPCS: 82565; 85049; 85610; 96365; 36415; 49083; P9047

== ENCOUNTER 2016-08-06 08:54 | Day surgery (SDC) | payer OTHER ==
[2016-08-06 09:12] VITALS: RESP 14; TEMP 97.8
[2016-08-06 09:21] LABS: Mean Platelet Volume 7.4
[2016-08-06 09:24] LABS: INR 1.2 (<1.1); Prothrombin Time 12.2 sec (9.0-12.0)
[2016-08-06 09:30] LABS: Glucose,Whole Blood 93 mg/dL (75-99)
[2016-08-06 11:58] VITALS: BP 126/74; PULSE 79
--- NOTE | 2016-08-06 12:48 | US ---
EXAMINATION TYPE: US paracentesis abd w/image DATE OF EXAM: 08/06/2016 12:03 PM CLINICAL HISTORY: Ascites The procedure was discussed with the patient. The risks, complications, benefits, and alternatives we re discussed and any questions were answered. Informed consent was obtained. The patient was placed s upine on the ultrasound table and prepped and draped in the usual sterile fashion. All elements of maximal barrier technique were utilized. Under ultrasound guidance, access into the right lower quadrant was obtained, via the paracentesis catheter system and direct ultrasound guidanc e. Approximately 9.3 liters of straw-colored fluid was removed. The patient was stable throughout the pr ocedure and remained stable upon discharge from Department of Radiology. IMPRESSION: Successful therapeutic paracentesis under ultrasound guidance.
== END 2016-08-06 12:04 | disposition home or self-care (01) ==
LOC: RADPROMAIN 08:54
PROVIDERS: ATTEND Family Medicine
DX: R18.8 Other ascites (principal); Z88.5 Allergy status to narcotic agent; Z88.8 Allergy status to other drugs, medicaments and biological substances
CPT/HCPCS: 49083; 85049; 85610

== ENCOUNTER 2016-08-27 08:47 | Day surgery (SDC) | payer OTHER ==
[2016-08-27 09:22] LABS: Mean Platelet Volume 7.5
[2016-08-27 09:32] LABS: Non-African American GFR(MDRD) >60 (>60 ml/min/1.73 sqM)
[2016-08-27 09:42] VITALS: TEMP 98.2
[2016-08-27 10:18] LABS: INR 1.2 (<1.1); Prothrombin Time 11.9 sec (9.0-12.0)
[2016-08-27 10:36] VITALS: RESP 16
[2016-08-27] MEDS: ALBUMIN HUMAN 25% 50 ML in EMPTY BAG 1 BAG IVPB SCH ×4 (10:44→11:30)
[2016-08-27 12:31] VITALS: BP 137/75; PULSE 82
--- NOTE | 2016-08-27 12:35 | US ---
EXAMINATION TYPE: US paracentesis abd w/image DATE OF EXAM: 08/27/2016 COMPARISON: NONE HISTORY: Ascites PROCEDURE: Maximal barrier technique was utilized. The skin overlying a suitable pocket of fluid was localized with ultrasound and the overlying skin was prepped and draped. Ultrasound was utilized with sterile technique. Lidocaine was used for local anesthesia and a skin gilbert made with a scalpel. Catheter was advanced under direct ultrasound guidance into a suitable pocket of fluid and approximately 8.3 liter s of serous fluid were removed. Catheter was withdrawn and hemostasis achieved. There is no immedia te complication; the patient is discharged in stable condition. IMPRESSION: STATUS POST ULTRASOUND GUIDED PARACENTESIS FOR PALLIATION OF ASCITES. THIS PROCEDURE WA S PERFORMED BY THE UNDERSIGNED.
== END 2016-08-27 12:15 | disposition home or self-care (01) ==
LOC: RADPROMAIN 08:47
PROVIDERS: ATTEND Family Medicine
DX: R18.8 Other ascites (principal)
CPT/HCPCS: 82565; 85049; 85610; 96365; 36415; 49083; P9047

== ENCOUNTER 2016-09-03 13:56 | Observation (INO) | payer OTHER ==
[2016-09-03 14:54] LABS: Basophils % (A) 0 %; CH 30.3; CHCM 31.7; Eosinophils # (A) 0.1 k/uL (0-0.7); Eosinophils % (A) 2 %; HCT 49.3 % (39.0-53.0); HDW 2.16; HGB 15.5 gm/dL (13.0-17.5); Luc # (Auto) 0.12; Luc % (Auto) 1; Lymphocytes # (A) 1.1 k/uL (1.0-4.8); Lymphocytes % (A) 13 %; MCH 30.2 pg (25.0-35.0); MCHC 31.5 g/dL (31.0-37.0); Mean Platelet Volume 7.4; Monocytes # (A) 0.5 k/uL (0-1.0); Monocytes % (A) 6 %; Neutrophils # (A) 6.2 k/uL (1.3-7.7); Neutrophils % (A) 77 %; RBC 5.13 m/uL (4.30-5.90); WBC (Perox) 7.61
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
[2016-09-03 14:55] LABS: ALT 32 U/L (21-72); AST 35 U/L (17-59); Alkaline Phosphatase 232 U/L (38-126); Anion Gap 9 mmol/L; Blood Urea Nitrogen 14 mg/dL (9-20); Calcium 8.9 mg/dL (8.4-10.2); Carbon Dioxide 28 mmol/L (22-30); Chloride 102 mmol/L (98-107); Glucose 106 mg/dL (74-99); Magnesium 1.9 mg/dL (1.6-2.3); Non-African American GFR(MDRD) >60 (>60 ml/min/1.73 sqM); Potassium 4.5 mmol/L (3.5-5.1); Sodium 139 mmol/L (137-145); Total Bilirubin 1.3 mg/dL (0.2-1.3); Total Protein 6.3 g/dL (6.3-8.2)
[2016-09-03 14:56] LABS: INR 1.2 (<1.1); Partial Thromboplastin Time 27.5 sec (22.0-30.0); Prothrombin Time 11.5 sec (9.0-12.0)
--- NOTE | 2016-09-03 15:11 | XR ---
EXAMINATION TYPE: XR chest 2V DATE OF EXAM: 09/03/2016 COMPARISON: 07/08/2016 INDICATION: Chest pain TECHNIQUE: Frontal and lateral views of the chest are obtained. FINDINGS: The heart size is normal. The pulmonary vasculature is normal. Lung findings appear stable, likely chronic. IMPRESSION: 1. Stable appearance of 2 view chest.
[2016-09-03 15:24] LABS: Troponin I 0.015 ng/mL (0.000-0.034)
[2016-09-03] MEDS ORDERED: ASPIRIN 81 MG CHEW PO STA (15:28)
[2016-09-03] MEDS ORDERED: NITROGLYCERIN SL TABS 0.4 MG TAB SUBLINGUAL PRN (15:28)
[2016-09-03] MEDS ORDERED: RX INFO: IV CONTRAST WAS GIVEN 1 EACH MISC MISCELLANE PRN (15:28)
[2016-09-03] MEDS ORDERED: MORPHINE SULFATE 4 MG/ML SYRINGE IVP PRN (15:31)
[2016-09-03] MEDS ORDERED: MORPHINE SULFATE 4 MG/ML SYRINGE IVP STA (15:31)
[2016-09-03 15:32] LABS: Creatine Kinase MB 4.7 ng/mL (0.0-2.4)
[2016-09-03] MEDS ORDERED: IPRATROPIUM-ALBUTEROL 3 ML NEB INHALATION PRN (15:34)
[2016-09-03] MEDS ORDERED: IPRATROPIUM-ALBUTEROL 3 ML NEB INHALATION STA (15:34)
--- NOTE | 2016-09-03 18:17 | CT ---
EXAMINATION TYPE: CT abdomen pelvis w con DATE OF EXAM: 09/03/2016 COMPARISON: 05/22/2015 HISTORY: Abdominal distention CT DLP: 1487.5 mGycm Automated exposure control for dose reduction was used. TECHNIQUE: Helical acquisition of images was performed from the lung bases through the pelvis. CONTRAST: Performed without Oral Contrast and with IV Contrast, patient injected with 100 mL of Omnipaque 350. FINDINGS: Lung bases are clear of consolidation. There is no pleural effusion. Heart is enlarged. I see no focal liver defect. Bile ducts are not dilated. There are numerous small calcified splenic g ranulomata. There is no sign of a pancreatic mass. Gallbladder appears normal. There are small liver calcifications consistent with granuloma. There is a large amount of ascites fluid throughout the abdomen. There is an umbilical hernia that co ntains ascites fluid. There is some mildly distended small bowel up to 3.2 cm. Large bowel gas patter n appears normal. There is no sign of pneumoperitoneum. Abdominal aorta is atheromatous. There is no adrenal mass. There is a 4 cm cortical cyst on the lateral right kidney. There is no hydr onephrosis. There is no retroperitoneal adenopathy. There are sigmoid diverticula. There is no sign o f diverticulitis. Bladder distends smoothly. I see no bony destructive process. IMPRESSION: THERE IS MASSIVE ASCITES THAT IS INCREASED SLIGHTLY COMPARED TO OLD EXAM. THERE IS EVIDENCE OF MILD S MALL BOWEL ILEUS. NO SIGN OF MECHANICAL OBSTRUCTION. ATHEROSCLEROTIC VASCULAR DISEASE. UMBILICAL HERNIA THAT CONTAINS SOME ASCITES FLUID IS PROBABLY INCRE ASED COMPARED TO OLD EXAM. RIGHT RENAL CORTICAL CYST IS STABLE. HEALED GRANULOMATOUS DISEASE.
--- NOTE | 2016-09-03 18:23 | CT ---
EXAMINATION TYPE: CT angio chest DATE OF EXAM: 09/03/2016 5:57 PM COMPARISON: 06/16/2016 HISTORY: Shortness of breath and cough with blood CT DLP: 418.7 mGycm Automated exposure control for dose reduction was used. CONTRAST: CTA scan of the thorax is performed with IV Contrast, patient injected with 100 mL of Omnipaque 350, pulmonary embolism protocol. There are 3-D post processed images.. FINDINGS: The heart is enlarged. There is no pleural effusion. There is no evidence of a pulmonary mass. I see no pulmonary consolidation. There are calcified granulomata in the mediastinum. Thoracic aorta is ath eromatous. Ascending aorta measures up to 4 cm. I see no filling defects in the pulmonary arteries. There is spurring in the thoracic spine. There ar e calcified hepatic and splenic granulomata. There are nonobstructing left renal calcifications noted . IMPRESSION: NO EVIDENCE OF PULMONARY EMBOLISM. MILD ANEURYSM OF THE ASCENDING AORTA. NO PULMONARY CONSOLIDATION. CARDIOMEGALY. ATHEROSCLEROTIC VASCULAR DISEASE. THERE IS CLEARING OF RIGHT LOWER LOBE PULMONARY EMBOL ISM COMPARED TO OLD EXAM.
[2016-09-03 18:42] VITALS: BMI 29.7
[2016-09-03] MEDS ORDERED: ALBUTEROL INHALER 60 PUFF/8 GM INHALER INHALATION PRN (19:32)
[2016-09-03] MEDS ORDERED: NON-FORMULARY DRUG (Ipratropium/Albuterol Sulfate [Combivent Respimat Inhaler] 1 PUFF) INHALATION PRN (19:32)
[2016-09-03] MEDS ORDERED: metFORMIN 500 MG TAB PO SCH (19:45)
[2016-09-03] MEDS: HYDROcodone/APAP 10-325MG 1 EACH TAB PO PRN (20:03)
[2016-09-03] MEDS: METOPROLOL TARTRATE 50 MG TAB PO SCH (20:23)
[2016-09-03] MEDS: FAMOTIDINE 20 MG TAB PO SCH (20:23)
[2016-09-03] MEDS: SPIRONOLACTONE 25 MG TAB PO SCH (20:24)
[2016-09-03] MEDS: PANTOPRAZOLE 40 MG TABLET PO SCH (20:24)
[2016-09-03] MEDS: CYCLOBENZAPRINE 10 MG TAB PO SCH (20:24)
[2016-09-03] MEDS: ENOXAPARIN 120 MG/0.8 ML SYRINGE SQ SCH (20:24)
[2016-09-03 20:50] LABS: Glucose,Whole Blood 120 mg/dL (75-99)
[2016-09-03] MEDS ORDERED: ATORVASTATIN 80 MG TAB PO SCH (21:00)
[2016-09-03 21:36] LABS: Troponin I 0.016 ng/mL (0.000-0.034)
[2016-09-03 21:48] LABS: Hemoglobin A1C 6.2 % (4.2-6.1)
[2016-09-03 21:49] LABS: Creatine Kinase MB 4.8 ng/mL (0.0-2.4)
[2016-09-03] MEDS: HYDROmorphone 1 MG/ML 1 ML SYRINGE IVP PRN (23:30)
[2016-09-04] MEDS ORDERED: TEMAZEPAM 15 MG CAP PO PRN (00:28)
[2016-09-04 02:59] LABS: Basophils # (A) 0.1 k/uL (0-0.2); Basophils % (A) 1 %; CH 29.9; CHCM 31.5; Eosinophils # (A) 0.2 k/uL (0-0.7); Eosinophils % (A) 2 %; HCT 50.6 % (39.0-53.0); HDW 2.21; HGB 16.4 gm/dL (13.0-17.5); Luc # (Auto) 0.18; Luc % (Auto) 2; Lymphocytes # (A) 1.4 k/uL (1.0-4.8); Lymphocytes % (A) 17 %; MCH 30.8 pg (25.0-35.0); MCHC 32.4 g/dL (31.0-37.0); MCV 95.2 fL (80.0-100.0); Mean Platelet Volume 7.1; Monocytes # (A) 0.6 k/uL (0-1.0); Monocytes % (A) 8 %; Neutrophils # (A) 5.7 k/uL (1.3-7.7); Neutrophils % (A) 70 %; RBC 5.31 m/uL (4.30-5.90); RDW 14.8 % (11.5-15.5); WBC 8.2 k/uL (3.8-10.6); WBC (Perox) 8.15
[2016-09-04 03:09] LABS: Anion Gap 8 mmol/L; Blood Urea Nitrogen 16 mg/dL (9-20); Calcium 8.8 mg/dL (8.4-10.2); Carbon Dioxide 25 mmol/L (22-30); Chloride 104 mmol/L (98-107); Cholesterol 163 mg/dL (<200); Glucose 111 mg/dL (74-99); HDL Cholesterol 43 mg/dL (40-60); Non-African American GFR(MDRD) >60 (>60 ml/min/1.73 sqM); Potassium 4.8 mmol/L (3.5-5.1); Sodium 137 mmol/L (137-145); Triglycerides 60 mg/dL (<150)
[2016-09-04] MEDS: HYDROcodone/APAP 10-325MG 1 EACH TAB PO PRN ×2 (03:18→09:40)
[2016-09-04] MEDS: ALPRAZolam 0.25 MG TAB PO PRN ×2 (03:18→09:40)
[2016-09-04 03:25] LABS: Troponin I 0.023 ng/mL (0.000-0.034)
[2016-09-04 03:31] LABS: Creatine Kinase MB 4.8 ng/mL (0.0-2.4)
[2016-09-04 03:52] VITALS: RESP 16
[2016-09-04] MEDS: INSULIN LISPRO (humaLOG) 300 UNIT/3 ML VIAL SQ SCH ×3 (04:32→12:12)
[2016-09-04] MEDS: HYDROmorphone 1 MG/ML 1 ML SYRINGE IVP PRN ×2 (04:33→12:08)
[2016-09-04 06:55] LABS: Glucose,Whole Blood 98 mg/dL (75-99)
[2016-09-04] MEDS: LEVALBUTEROL NEB (CONC) 1.25 MG/0.5 ML AMP INHALATION SCH ×2 (07:34→13:25)
[2016-09-04] MEDS: IPRATROPIUM 0.5 MG/2.5 ML NEBU INHALATION SCH ×2 (07:34→13:25)
[2016-09-04] MEDS: ENOXAPARIN 120 MG/0.8 ML SYRINGE SQ SCH (08:31)
[2016-09-04] MEDS ORDERED: metFORMIN 500 MG TAB PO SCH (09:00)
[2016-09-04] MEDS ORDERED: FUROSEMIDE 10 MG/ML 4 ML VIAL IV SCH (09:00)
[2016-09-04] MEDS ORDERED: ASPIRIN 325 MG TAB PO SCH (09:00)
[2016-09-04] MEDS ORDERED: ASPIRIN 81 MG CHEW PO SCH (09:00)
[2016-09-04] MEDS ORDERED: LISINOPRIL 20 MG TAB PO SCH (09:00)
[2016-09-04] MEDS: SPIRONOLACTONE 25 MG TAB PO SCH (09:41)
[2016-09-04] MEDS: METOPROLOL TARTRATE 50 MG TAB PO SCH (09:41)
[2016-09-04] MEDS: PANTOPRAZOLE 40 MG TABLET PO SCH (09:42)
[2016-09-04] MEDS: CYCLOBENZAPRINE 10 MG TAB PO SCH (09:42)
[2016-09-04] MEDS: FAMOTIDINE 20 MG TAB PO SCH (09:42)
[2016-09-04 11:33] VITALS: BP 118/66; TEMP 98.1
[2016-09-04 11:37] LABS: Glucose,Whole Blood 167 mg/dL (75-99)
--- NOTE | 2016-09-04 11:41 | HP ---
DATE OF ADMISSION: DATE OF SERVICE: 09/03/2016 CHIEF COMPLAINT: Chest pain and shortness of breath. HISTORY OF PRESENT ILLNESS: This 61-year-old gentleman with a past medical history of multiple medical problems including history of congestive heart failure with ejection fraction 25% to 30%, history of recurrent ascites, history of abdominal paracentesis, history of myocardial infarction , history of CVA, TIA, history persistent sore throat, history of DVTs, history of CAD, stent, history of anxiety being followed Dr. Andrews Escobar in the outpatient setting recently had abdominal paracentesis. Currently the patient complains of chest pain felt in the anterior part of chest, pressure like sensation which is radiating to the back associated with shortness of breath. The patient also complaining of right lower chest pain. The patient came to [facility] and admitted for further evaluation and treatment. There is no history of fever, rigors. No history of headache, loss of consciousness or seizures. PAST MEDICAL HISTORY: History of CVA, TIA, history of myocardial infarction , CHF with chronic systolic dysfunction, ejection fraction 25% to 30%, history of bilateral leg edema, history of diabetes mellitus type 2, history of coronary artery disease and stent, history of anxiety not otherwise specified. The medications are home medications; 1. Glucophage 500 mg q.a.m. 2. Glucophage 1000 mg a.c. supper. 3. Aldactone 25 mg b.i.d. 4. Ranitidine 150 mg b.i.d. 5. Prilosec 20 mg b.i.d. 6. Lopressor 50 mg b.i.d. 7. Prinivil 20 mg daily. 8. Combivent 1 puff t.i.d. p.r.n. 9. NovoLog t.i.d. 10. [place] 10 mg q.4 p.r.n. 11. Lovenox 120 mg p.o. b.i.d. 12. Flexeril 10 mg p.o. t.i.d. 13. Lipitor 80 mg q.h.s. 14. Ventolin HFA one puff q.6 p.r.n. ALLERGIES: CODEINE, KETOROLAC. FAMILY HISTORY: No history of heart disease or strokes in the family. SOCIAL HISTORY: History of THC. Otherwise, history of smoking. REVIEW OF SYSTEMS: ENT: No diminished hearing or vision. CARDIOVASCULAR: As mentioned earlier. RESPIRATORY: As mentioned earlier. GI: As mentioned earlier. : No dysuria. NERVOUS SYSTEM: No numbness or weakness. ALLERGY/IMMUNOLOGY: No asthma or hayfever. MUSCULOSKELETAL: As mentioned earlier. HEMATOLOGY/ONCOLOGY: No history of anemia. ENDOCRINE: No history of hypothyroidism. Diabetes mellitus present. CONSTITUTIONAL: As mentioned earlier DERMATOLOGY: Negative. RHEUMATOLOGY: Negative. PSYCHIATRY: As mentioned earlier. PHYSICAL EXAMINATION: Patient is alert and oriented x3. Pulse 78, blood pressure 125/79, respirations 18, temperature 98 degrees, pulse ox 92% on room air. HEENT: Conjunctivae normal. Oral mucosa moist. NECK: Jugular venous distention not present. CARDIOVASCULAR: S1 and S2, muffled. No S3, no S4. Ejection systolic murmur. RESPIRATORY: Breath sounds diminished at the bases. Bilateral scattered rhonchi and crackles. ABDOMEN: Soft. Umbilical hernia present. Otherwise, ascites present. Fluid thrill also present. LEGS: Bilateral leg edema. NERVOUS SYSTEM: Higher function as mentioned. Moves all 4 limbs. No focal motor or sensory deficits. LYMPHATICS: No lymphadenopathy of neck, axillae or groin. SKIN: No ulcers, rashes or bleeding. JOINTS: No active deforming arthropathy. LABS: CBC within normal limits. Glucose 106. Hemoglobin A1c 6.2. CK-MB is 4.7 and 4.8. Alk phos 232. The chest x-ray which was done showed apparently no acute abnormality. The EKG showed R waves and diffuse ST-T changes. Abdomen and pelvis CAT scan showed massive ascites, ileus. Chest CTA showed no consolidation, clearing of the right lower lobe pulmonary embolism compared to the previous scan. ASSESSMENT: 1. Chest pain, possible unstable angina. 2. Right-side lower chest pain, possibly musculoskeletal. 3. Ascites, possible secondary to congestive heart failure. 4. Congestive heart failure with chronic systolic dysfunction 25% to 30% with possible cardiomyopathy. 5. Acute on chronic congestive heart failure with acute exacerbation. 6. History of cerebrovascular accident, transient ischemic attack. 7. History of myocardial infarction. 8. History of persistent sore throat. 9. Multiple abdominal paracentesis. 10. History of peripheral vascular disease. 11. Continued ongoing nicotine dependence. 12. Diabetes mellitus type 2. 13. History of peripheral neuropathy, possibly diabetic peripheral neuropathy. 14. History of bilateral deep venous thromboses. 15. History of pulmonary embolism. 16. History of diverticulosis. 17. History of coronary artery disease, stent. 18. History of anxiety, not otherwise specified. RECOMMENDATIONS AND DISCUSSION: This 61-year-old gentleman who presented with multiple complex medical issues, we will monitor the patient closely, continue the current medications, continue with symptomatic treatment. I would recommend IV diuretics. Monitor renal functions closely otherwise cardiology consultation to rule out myocardial infarction. Resume the home medications. for possible ascitic aspiration. Symptomatic treatment will be provided at this time. Further recommendations to follow. Will monitor the Accu-Cheks as well. See orders for details. Guarded prognosis. Bronchodilators also will be recommended and smoking cessation also has been recommended. A copy of dictation forwarded to Dr. Andrews Escobar who is the primary physician. ALFRED
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
--- NOTE | 2016-09-04 12:58 | CONS ---
DATE OF CONSULTATION: ATTENDING: Dr. Escobar Mr. Monet is a 61-year-old male with known history of coronary artery disease, history of percutaneous revascularization with chronically occluded right coronary artery, history of ischemic cardiomyopathy, recurrent ascites, and chronic tobacco use with chronic obstructive lung disease, who presented with abdominal discomfort and chest discomfort. He underwent paracentesis a little bit over a week ago, but he noted increased distention of his abdomen. He was undergoing the paracentesis every other week. He then started to have complaints of abdominal discomfort and chest discomfort. He has dyspnea on exertion. He has some mild edema on the right lower extremity. No PND. No orthopnea. No significant dizziness or palpitation. He has a history of chronic atrial fibrillation. He had multiple admissions to the hospital with the similar findings. His ejection fraction in the past has been reported to be in the 25% to 30%. Coronary risk factor are remarkable for the history of smoking. He has history of diabetes, hypertension, and hyperlipidemia. His medications include: 1. Lipitor 80 mg daily. 2. Lovenox 120 mg twice a day. 3. Insulin. 4. Lisinopril 20 mg daily. 5. Metoprolol tartrate 50 mg twice a day. 6. Aldactone 25 mg twice a day. 7. Metformin. REVIEW OF SYSTEMS: RESPIRATORY SYSTEM: He has dyspnea on exertion. He has wheezing. He has a cough and has underwent work-up including throat biopsies. GI: He has the abdominal pain, recurrent ascites. : He has no recent dysuria or hematuria. Nervous system: No history of stroke. Past medical history remarkable for the history of peripheral vascular disease, history of coronary artery disease, atrial fibrillation and recurrent ascites. PHYSICAL EXAMINATION: He is a 61-year-old male, alert, oriented, in no apparent distress. Blood pressure 125/60 with a heart in the 70s. HEAD: Normocephalic. EYES: Sclerae anicteric. NECK: No bruit. LUNGS: With scattered wheezes with decreased air exchange. HEART: Irregularly irregular. S1, S2, no S3, with systolic murmur. No rub. ABDOMEN: Distended with ascites noted. Mild tenderness. EXTREMITIES: 1+ edema on the right side decreased distal pulses. Lab data revealed troponin of 0.015, 0.0160 and 0.023. NT-proBNP of 4010. BUN and creatinine of 16 and 0.7. Cholesterol of 163. His hemoglobin of 16.4. EKG reveals atrial fibrillation with evidence of apical myocardial infarction. Nonspecific ST-T wave changes. Chest x-ray shows no evidence of infiltrate. Abdominal and pelvis CT scan revealed massive ascites. Chest CT angiogram revealed no evidence of pulmonary embolism with mild dilatation of the ascending aorta measuring 4 cm. IMPRESSION: 1. Abdominal and chest discomfort, atypical for ischemic heart disease, probably non-cardiac most likely related to his recurrent ascites. 2. History of chronic atrial fibrillation. 3. Recurrent ascites. 4. History of ischemic cardiomyopathy. 5. History of chronic tobacco use. 6. Diabetes. 7. Hyperlipidemia. RECOMMENDATIONS: At this time, I see no evidence to suggest active ischemia as the etiology of his symptoms. The patient may require repeat paracentesis because of his recurrent ascites. Otherwise, we will continue present therapy and follow up on a regular basis with Dr. Jamaica Mayers. Thank you for this consult. We will follow with you.
[2016-09-04 13:30] VITALS: PULSE 88
[2016-09-05] MEDS ORDERED: IPRATROPIUM-ALBUTEROL 3 ML NEB INHALATION SCH (08:00)
--- NOTE | 2016-09-05 10:33 | DS ---
DATE OF ADMISSION: 09/03/2016 DATE OF DISCHARGE: 09/04/2016 FINAL DIAGNOSES: 1. Chest pain, possibly musculoskeletal chest pain. 2. Right-sided lower chest pain, possibly musculoskeletal. 3. Ascites, possibly secondary to congestive heart failure. 4. Congestive heart failure with chronic systolic dysfunction ejection fraction 25 to 30% with possible cardiomyopathy. 5. Acute on chronic congestive heart failure with congestive heart failure acute exacerbation. 6. History of cerebrovascular accident, transient ischemic attack. 7. History of myocardial infarction. 8. History of persistent sore throat. 9. Multiple abdominal paracentesis history. 10. History of peripheral vascular disease. 11. Continued ongoing nicotine dependence. 12. Diabetes mellitus type 2. 13. History of peripheral neuropathy, possibly diabetic peripheral neuropathy. 14. History of bilateral deep venous thrombosis. 15. History of pulmonary embolus. 16. History of diverticulosis. 17. History of coronary artery disease, stent. 18. History of anxiety, not otherwise specified. DISCHARGE DISPOSITION: The patient will be discharged in stable condition with guarded prognosis. Discharge cleared by multiple consultants. HISTORY OF PRESENT ILLNESS: This 61-year-old gentleman with a past medical history of multiple medical problems was admitted with chest pain, shortness of breath. The patient was treated symptomatically, improved significantly. The patient was also followed by Dr. Escobar in the outpatient setting. The patient seen by cardiology as well as gastroenterology. The patient just received Lovenox and recommended outpatient paracentesis. On exam vital signs stable. CARDIOVASCULAR: S1, S2. Abdomen soft. Ascites present. The patient did improve with conservative line of treatment and the following recommendations are recommended: 1. Diet is cardiac. 2. Activity limited until follow up. 3. Follow-up with Dr. Andrews Escobar in 2 to 3 days. 4. Follow up with cardiology in 2 weeks. 5. Follow up with interventional radiologist as recommended. 6. Albuterol 1 puff q.6 p.r.n. 7. Lipitor 80 mg q.h.s. 8. Flexeril 10 mg p.o. t.i.d. 9. Lovenox 120 mg subcu b.i.d. 10. Lasix 40 mg p.o. b.i.d. 11. Hydrocodone 1 tablet p.o. q.4 p.r.n. 12. Novolog scale a.c. t.i.d. as before. 13. Albuterol Atrovent inhalers q.i.d. and p.r.n. 14. Prinivil 20 mg p.o. daily. 15. Glucophage 1000 mg per supper. 16. Glucophage 500 mg in the morning. 17. Lopressor 50 mg p.o. b.i.d. 18. Prilosec 20 mg p.o. b.i.d. 19. Aldactone 25 mg p.o. b.i.d. Once again, the patient will be discharged in a stable condition with guarded prognosis. MTDD
== END 2016-09-04 14:10 | disposition home or self-care (01) ==
LOC: EC 13:56 → 3OBS 15:28
PROVIDERS: ADMIT Hospitalist; ATTEND Hospitalist
DX: R07.9 Chest pain, unspecified (principal); J44.9 Chronic obstructive pulmonary disease, unspecified; R18.8 Other ascites; I50.22 Chronic systolic (congestive) heart failure; Z86.73 Personal history of transient ischemic attack (TIA), and cerebral infarction without residual deficits; I25.2 Old myocardial infarction; E78.5 Hyperlipidemia, unspecified; J02.9 Acute pharyngitis, unspecified; I73.9 Peripheral vascular disease, unspecified; F17.200 Nicotine dependence, unspecified, uncomplicated; E11.43 Type 2 diabetes mellitus with diabetic autonomic (poly)neuropathy; Z86.718 Personal history of other venous thrombosis and embolism; Z86.711 Personal history of pulmonary embolism; K57.90 Diverticulosis of intestine, part unspecified, without perforation or abscess without bleeding; I25.5 Ischemic cardiomyopathy; I25.10 Atherosclerotic heart disease of native coronary artery without angina pectoris; I11.0 Hypertensive heart disease with heart failure; F41.9 Anxiety disorder, unspecified; I15.2 Hypertension secondary to endocrine disorders; K31.84 Gastroparesis; I48.2 Chronic atrial fibrillation; Z88.5 Allergy status to narcotic agent; Z88.8 Allergy status to other drugs, medicaments and biological substances; Z95.5 Presence of coronary angioplasty implant and graft; Z83.3 Family history of diabetes mellitus; Z79.84 Long term (current) use of oral hypoglycemic drugs; Z79.899 Other long term (current) drug therapy; Z79.4 Long term (current) use of insulin
CPT/HCPCS: 96374 ×2; 99285 ×2; 96375; 96376; 36415; 94640 ×2; 93005; 83880; 80061; 80053; 80048; 83036; 82550 ×2; 82553 ×2; 83690; 83735; 84484 ×2; 85025 ×2; 85610; 85730; 71020; 71275; 74177; G0378 ×2; J2270; J1940; Q9967; J1650; J1170 ×2

== ENCOUNTER 2016-09-07 10:43 | Day surgery (SDC) | payer OTHER ==
[2016-09-07 12:36] VITALS: RESP 18; TEMP 98.1
[2016-09-07 13:55] VITALS: BP 134/68; PULSE 80
--- NOTE | 2016-09-07 14:41 | US ---
EXAMINATION TYPE: US paracentesis abd w/image DATE OF EXAM: 09/07/2016 COMPARISON: NONE HISTORY: Ascites. PROCEDURE: Maximal barrier technique was utilized. The skin overlying a suitable pocket of fluid was localized with ultrasound and the overlying skin was prepped and draped. Ultrasound was utilized with sterile technique. Lidocaine was used for local anesthesia and a skin gilbert made with a scalpel. Catheter was advanced under direct ultrasound guidance into a suitable pocket of fluid and approximately 7.7 liter s of serous fluid were removed. Catheter was withdrawn and hemostasis achieved. There is no immedia te complication; the patient is discharged in stable condition. IMPRESSION: STATUS POST ULTRASOUND GUIDED PARACENTESIS FOR PALLIATION OF ASCITES. THIS PROCEDURE WA S PERFORMED BY THE UNDERSIGNED.
== END 2016-09-07 14:15 | disposition home or self-care (01) ==
LOC: RADPROMAIN 10:43
PROVIDERS: ATTEND Family Medicine
DX: R18.8 Other ascites (principal)
CPT/HCPCS: 49083

== ENCOUNTER 2016-09-21 11:38 | Day surgery (SDC) | payer OTHER ==
[2016-09-21 12:15] VITALS: RESP 14; TEMP 98.1
[2016-09-21 12:22] LABS: Mean Platelet Volume 7.3
[2016-09-21 12:31] LABS: Glucose,Whole Blood 88 mg/dL (75-99)
[2016-09-21 12:41] LABS: INR 1.2 (<1.1); Prothrombin Time 12.2 sec (9.0-12.0)
[2016-09-21 14:28] VITALS: BP 146/100; PULSE 94
--- NOTE | 2016-09-21 15:03 | US ---
EXAMINATION TYPE: US paracentesis abd w/image DATE OF EXAM: 09/21/2016 COMPARISON: NONE HISTORY: Ascites. PROCEDURE: Maximal barrier technique was utilized. The skin overlying a suitable pocket of fluid was localized with ultrasound and the overlying skin was prepped and draped. Ultrasound was utilized with sterile technique. Lidocaine was used for local anesthesia and a skin gilbert made with a scalpel. Catheter was advanced under direct ultrasound guidance into a suitable pocket of fluid and approximately 7.3 liter s of serous fluid were removed. Catheter was withdrawn and hemostasis achieved. There is no immedia te complication; the patient is discharged in stable condition. IMPRESSION: STATUS POST ULTRASOUND GUIDED PARACENTESIS FOR PALLIATION OF ASCITES. THIS PROCEDURE WA S PERFORMED BY THE UNDERSIGNED.
== END 2016-09-21 14:31 | disposition home or self-care (01) ==
LOC: RADPROMAIN 11:38
PROVIDERS: ATTEND Family Medicine
DX: R18.8 Other ascites (principal); Z88.6 Allergy status to analgesic agent; Z88.5 Allergy status to narcotic agent; Z79.02 Long term (current) use of antithrombotics/antiplatelets; Z79.82 Long term (current) use of aspirin; Z79.01 Long term (current) use of anticoagulants
CPT/HCPCS: 49083; 85049; 85610

== ENCOUNTER 2016-10-05 12:19 | Day surgery (SDC) | payer OTHER ==
[2016-10-05 12:37] VITALS: RESP 20; TEMP 97.8
[2016-10-05 12:46] LABS: Mean Platelet Volume 7.7
[2016-10-05 12:49] LABS: Non-African American GFR(MDRD) >60 (>60 ml/min/1.73 sqM)
[2016-10-05 13:14] LABS: INR 1.2 (<1.2); Prothrombin Time 11.5 sec (9.0-12.0)
[2016-10-05 15:08] VITALS: BP 138/80; PULSE 78
--- NOTE | 2016-10-05 15:56 | US ---
EXAMINATION TYPE: US paracentesis abd w/image DATE OF EXAM: 10/05/2016 COMPARISON: NONE HISTORY: Ascites. PROCEDURE: Maximal barrier technique was utilized. The skin overlying a suitable pocket of fluid was localized with ultrasound and the overlying skin was prepped and draped. Ultrasound was utilized with sterile technique. Lidocaine was used for local anesthesia and a skin gilbert made with a scalpel. Catheter was advanced under direct ultrasound guidance into a suitable pocket of fluid and approximately 7.8 liter s of serous fluid were removed. Catheter was withdrawn and hemostasis achieved. There is no immedia te complication; the patient is discharged in stable condition. IMPRESSION: STATUS POST ULTRASOUND GUIDED PARACENTESIS FOR PALLIATION OF ASCITES. THIS PROCEDURE WA S PERFORMED BY THE UNDERSIGNED.
== END 2016-10-05 15:15 | disposition home or self-care (01) ==
LOC: RADPROMAIN 12:19
PROVIDERS: ATTEND Surgery
DX: R18.8 Other ascites (principal)
CPT/HCPCS: 36415; 49083; 82565; 85049; 85610

== ENCOUNTER 2016-10-13 14:56 | Inpatient (IN) | payer OTHER ==
[2016-10-13] MEDS ORDERED: NITROGLYCERIN OINT 1 INCH/GM PACKET TOPICAL STA (15:26)
[2016-10-13] MEDS ORDERED: ASPIRIN 81 MG PO STA (15:26)
[2016-10-13] MEDS ORDERED: IPRATROPIUM-ALBUTEROL 3 ML NEB INHALATION STA (15:27)
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
[2016-10-13 15:53] LABS: Basophils # (A) 0.1 k/uL (0-0.2); Basophils % (A) 1 %; CH 30.6; CHCM 32.1; Eosinophils # (A) 0.1 k/uL (0-0.7); Eosinophils % (A) 2 %; HCT 49.6 % (39.0-53.0); HGB 15.6 gm/dL (13.0-17.5); Luc # (Auto) 0.11; Luc % (Auto) 2; Lymphocytes # (A) 0.8 k/uL (1.0-4.8); Lymphocytes % (A) 12 %; MCH 30.1 pg (25.0-35.0); MCHC 31.4 g/dL (31.0-37.0); MCV 95.7 fL (80.0-100.0); Mean Platelet Volume 7.7; Monocytes # (A) 0.5 k/uL (0-1.0); Monocytes % (A) 7 %; Neutrophils # (A) 5.4 k/uL (1.3-7.7); Neutrophils % (A) 78 %; RBC 5.18 m/uL (4.30-5.90); RDW 15.7 % (11.5-15.5); WBC 6.9 k/uL (3.8-10.6); WBC (Perox) 6.76
--- NOTE | 2016-10-13 15:53 | XR ---
EXAMINATION TYPE: XR chest 2V DATE OF EXAM: 10/13/2016 COMPARISON: Chest x-ray and chest CT 09/03/2016 HISTORY: Chest pain and shortness of breath TECHNIQUE: Frontal and lateral views of the chest are obtained. FINDINGS: There is no focal air space opacity, pleural effusion, or pneumothorax seen. The cardiac silhouette size is stable, enlarged. There are coronary artery calcifications. Interstitium is increa sed. There are overlying cardiac leads. Postop change noted in the cervical spine. Calcified mediast inal nodes are present. The osseous structures are intact. IMPRESSION: There is interstitial lung disease. Correlate for possible pulmonary venous hypertension and interstitial edema.
[2016-10-13 16:00] LABS: ALT 39 U/L (21-72); AST 36 U/L (17-59); Alkaline Phosphatase 245 U/L (38-126); Anion Gap 9 mmol/L; Blood Urea Nitrogen 15 mg/dL (9-20); Calcium 8.8 mg/dL (8.4-10.2); Carbon Dioxide 28 mmol/L (22-30); Chloride 102 mmol/L (98-107); Glucose 104 mg/dL (74-99); Magnesium 1.7 mg/dL (1.6-2.3); Non-African American GFR(MDRD) >60 (>60 ml/min/1.73 sqM); Potassium 4.9 mmol/L (3.5-5.1); Sodium 139 mmol/L (137-145); Total Bilirubin 0.5 mg/dL (0.2-1.3); Total Protein 5.5 g/dL (6.3-8.2)
[2016-10-13 16:09] LABS: INR 1.1 (<1.2); Partial Thromboplastin Time 26.7 sec (22.0-30.0); Prothrombin Time 11.5 sec (9.0-12.0)
[2016-10-13 16:17] LABS: Creatine Kinase 162 U/L (55-170)
[2016-10-13 16:30] LABS: Troponin I <0.012 ng/mL (0.000-0.034)
[2016-10-13 16:33] LABS: Creatine Kinase MB 5.9 ng/mL (0.0-2.4)
[2016-10-13] MEDS ORDERED: MORPHINE SULFATE 2 MG/ML SYRINGE IVP STA (16:34)
[2016-10-13] MEDS ORDERED: HEPARIN SODIUM,PORCINE 5,000 UNIT/ML 1 ML VIAL IV ONE (16:45)
[2016-10-13] MEDS ORDERED: NITROGLYCERIN SL TABS 0.4 MG TAB SUBLINGUAL PRN (16:47)
[2016-10-13] MEDS: HEPARIN SODIUM,PORCINE/D5W PMX 25,000 UNIT in DEXTROSE/WATER 1 500ML.BAG IV SCH (17:02)
[2016-10-13] MEDS ORDERED: ALBUTEROL NEBULIZED 2.5 MG/3 ML INHALATION PRN (18:18)
[2016-10-13] MEDS ORDERED: IPRATROPIUM-ALBUTEROL 3 ML NEB INHALATION PRN (18:18)
[2016-10-13] MEDS ORDERED: HYDROmorphone 1 MG/ML 1 ML SYRINGE IVP PRN (18:20)
[2016-10-13] MEDS: FUROSEMIDE 40 MG TAB PO SCH (19:58)
[2016-10-13] MEDS: ATORVASTATIN 80 MG TAB PO SCH (19:58)
[2016-10-13] MEDS: PANTOPRAZOLE 40 MG TABLET PO SCH (19:58)
[2016-10-13] MEDS: METOPROLOL TARTRATE 50 MG TAB PO SCH (19:58)
[2016-10-13] MEDS: CYCLOBENZAPRINE 10 MG TAB PO SCH (19:59)
[2016-10-13] MEDS: SPIRONOLACTONE 25 MG TAB PO SCH (19:59)
[2016-10-13] MEDS: IPRATROPIUM-ALBUTEROL 3 ML NEB INHALATION PRN (20:57)
[2016-10-13 22:55] LABS: Creatine Kinase 121 U/L (55-170)
[2016-10-13 23:07] LABS: Troponin I <0.012 ng/mL (0.000-0.034)
[2016-10-13] MEDS: NITROGLYCERIN OINT 1 INCH/GM PACKET TOPICAL SCH (23:11)
[2016-10-13] MEDS ORDERED: HEPARIN SODIUM,PORCINE 5,000 UNIT/ML 1 ML VIAL IV PRN (23:15)
[2016-10-13 23:34] LABS: Creatine Kinase MB 4.9 ng/mL (0.0-2.4)
[2016-10-13] MEDS: HYDROmorphone 1 MG/ML 1 ML SYRINGE IVP PRN (23:57)
[2016-10-14 04:08] LABS: Cholesterol 157 mg/dL (<200); HDL Cholesterol 45 mg/dL (40-60)
[2016-10-14] MEDS: HYDROmorphone 1 MG/ML 1 ML SYRINGE IVP PRN ×5 (04:08→20:18)
[2016-10-14 04:27] LABS: Troponin I 0.014 ng/mL (0.000-0.034)
[2016-10-14 04:31] LABS: Creatine Kinase MB 4.5 ng/mL (0.0-2.4)
[2016-10-14] MEDS: NITROGLYCERIN OINT 1 INCH/GM PACKET TOPICAL SCH (06:32)
[2016-10-14] MEDS: PANTOPRAZOLE 40 MG TABLET PO SCH ×2 (06:34→18:51)
[2016-10-14] MEDS: METOPROLOL TARTRATE 50 MG TAB PO SCH ×2 (08:03→20:18)
[2016-10-14] MEDS: SPIRONOLACTONE 25 MG TAB PO SCH ×2 (08:03→20:18)
[2016-10-14] MEDS: LISINOPRIL 20 MG TAB PO SCH (08:03)
[2016-10-14] MEDS: FUROSEMIDE 40 MG TAB PO SCH (08:03)
[2016-10-14] MEDS: CYCLOBENZAPRINE 10 MG TAB PO SCH ×3 (08:03→21:09)
[2016-10-14] MEDS ORDERED: ASPIRIN 325 MG TAB PO SCH (09:00)
[2016-10-14] MEDS: IPRATROPIUM-ALBUTEROL 3 ML NEB INHALATION PRN ×4 (09:33→19:55)
[2016-10-14] MEDS ORDERED: RX INFO: IV CONTRAST WAS GIVEN 1 EACH MISC MISCELLANE PRN (10:50)
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
[2016-10-14] MEDS: metFORMIN 500 MG TAB PO SCH ×4 (12:14→18:57)
[2016-10-14] MEDS: FUROSEMIDE 10 MG/ML 4 ML VIAL IV SCH ×2 (12:14→20:18)
[2016-10-14 12:22] LABS: Partial Thromboplastin Time 42.2 sec (22.0-30.0)
--- NOTE | 2016-10-14 13:01 | ECHOF ---
Referral Reason:chest pain MEASUREMENTS -------- HEIGHT: 170.2 cm WEIGHT: 84.8 kg BP: 130/60 RVIDd: 4.2 cm (< 3.3) IVSd: 1.5 cm (0.6 - 1.1) LVIDd: 5.2 cm (3.9 - 5.3) LVPWd: 0.9 cm (0.6 - 1.1) IVSs: 1.7 cm LVIDs: 4.9 cm LVPWs: 1.4 cm LA Diam: 4.6 cm (2.7 - 3.8) LAESV Index (A-L): 42.54 ml/m Ao Diam: 3.3 cm (2.0 - 3.7) AV Cusp: 2.4 cm (1.5 - 2.6) LA Diam: 4.6 cm (2.7 - 3.8) MV EXCURSION: 20.130 mm (> 18.000) MV EF SLOPE: 85 mm/s (70 - 150) EPSS: 1.5 cm MV E Rodger: 0.60 m/s MV DecT: 224 ms MV A Rodger: 0.03 m/s MV E/A Ratio: 19.60 RAP: 5.00 mmHg RVSP: 38.46 mmHg FINDINGS -------- Undetermined rhythm. This was a technically good study. There is severe global hypokinesis of LV . Overall left ventricular systolic function is severely impaired with, an EF < 20%. Mitral Doppler inflow pattern suggests diastolic filling abnormality 17.50. Asymmetric hypertrophy. The right ventricle is severely enlarged. LA is severely dilated >40 ml/m2 The right atrial size is normal. There is mild aortic valve sclerosis. There is no evidence of aortic regurgitation. Mild mitral annular calcification present. Mild mitral regurgitation is present. [id number] tricuspid regurgitation present. There is mild pulmonary hypertension. The right ventricular systolic pressure, as measured by Doppler, is 38.46mmHg. There is no pulmonic regurgitation present. The aortic root size is normal. There is no pericardial effusion. CONCLUSIONS -------- 1. There is severe global hypokinesis of LV . 2. [id number] tricuspid regurgitation present. 3. There is mild pulmonary hypertension. 4. The right ventricular systolic pressure, as measured by Doppler, is 38.46mmHg. 5. Overall left ventricular systolic function is severely impaired with, an EF < 20%. 6. Mitral Doppler inflow pattern suggest diastolic filling abnormality 17.50. 7. Asymmetric hypertrophy. 8. The right ventricle is severely enlarged. 9. LA is severely dilated >40 ml/m2 10. There is mild aortic valve sclerosis. 11. Mild mitral annular calcification present. 12. Mild mitral regurgitation is present. RECEIVING AND PROCESSING SUPERVISOR: Yovana Kwon RDCS
--- NOTE | 2016-10-14 13:23 | CT ---
EXAMINATION TYPE: CT chest angio for PE DATE OF EXAM: 10/14/2016 COMPARISON: 09/03/2016 HISTORY: 61-year-old male complains of chest pain, difficulty breathing, and history of prior PE. TECHNIQUE: Contiguous axial scanning of the chest performed with IV Contrast, patient injected with 1 00 mL of Omnipaque 350. Coronal/sagittal MIP reconstructions performed. CT DLP: 590 mGycm Automated exposure control for dose reduction was used. FINDINGS: The heart is mildly enlarged without pericardial effusion. Extensive coronary vessel calcifications a re present. While there is no flattening of the interventricular septum, there is prominent reflux of contrast into the hepatic veins. This was also the case on 09/03/2016. 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 Mild a therosclerotic arch calcifications with conventional arch vessel branching anatomy. Large caliber to the main right pulmonary artery at 2.9 cm suggests underlying pulmonary arterial hyp ertension. There is some central filling defect within the distal left main pulmonary artery extending into the descending pulmonary arterial branch and with extensive left lower lobe segmental and subsegmental em boli. On the right, there is lesser degree of extensive subsegmental pulmonary emboli. Numerous calcified mediastinal lymph nodes compatible with prior granulomatous disease. Mild to moder ate bilateral gynecomastia. There is septal lines with mild diffuse central interstitial thickening and some minimal peripheral g roundglass in the lower lungs. Trace left greater than right pleural effusions are also noted. No fra nk consolidation. There is moderate abdominal ascites, similar to 09/03/2016 and numerous calcified granulomas in the sp ethan. Bones: No osseous destructive process. Anterior endplate spondylosis. IMPRESSION: 1. EXAM POSITIVE FOR ACUTE PULMONARY EMBOLI, MODERATE BURDEN ON THE LEFT AND MILD ON THE RIGHT. THROM BUS IS LOCATED PROXIMAL THE DISTAL LEFT MAIN PULMONARY ARTERY. 2. NO FLATTENING OF THE INTERVENTRICULAR SEPTUM TO SUGGEST RIGHT HEART STRAIN. 3. CHF WITH EARLY INTERSTITIAL PULMONARY EDEMA AND TRACE EFFUSIONS. 4. MODERATE ABDOMINAL ASCITES PERSISTS. Findings called to 6SEL and given to nurse Sova at 1:20 PM.
[2016-10-14] MEDS: HEPARIN SODIUM,PORCINE/D5W PMX 25,000 UNIT in DEXTROSE/WATER 1 500ML.BAG IV SCH (13:25)
--- NOTE | 2016-10-14 13:52 | US ---
EXAMINATION TYPE: US venous doppler duplex LE LT DATE OF EXAM: 10/14/2016 1:05 PM COMPARISON: US CLINICAL HISTORY: left leg edema. Left leg swelling x 1 week, patient on blood thinners SIDE PERFORMED: Left TECHNIQUE: The lower extremity deep venous system is examined utilizing real time linear array sonog ricky with graded compression, doppler sonography and color-flow sonography. VESSELS IMAGED: External Iliac Vein (EIV) Common Femoral Vein Deep Femoral Vein Greater Saphenous Vein * Femoral Vein Popliteal Vein Small Saphenous Vein * Proximal Calf Veins (* superficial vessels) Left Leg: Appears negative for DVT IMPRESSION: Grayscale, color doppler, spectral doppler imaging performed of the deep veins of the lo wer extremities. There is normal flow, compressibility, vascular waveforms bilaterally. No evident deep venous thrombosis at or above the left knee.
[2016-10-14] MEDS: ATORVASTATIN 80 MG TAB PO SCH (20:18)
[2016-10-15] MEDS: HYDROmorphone 1 MG/ML 1 ML SYRINGE IVP PRN ×6 (00:43→22:27)
[2016-10-15] MEDS: HEPARIN SODIUM,PORCINE/D5W PMX 25,000 UNIT in DEXTROSE/WATER 1 500ML.BAG IV SCH ×2 (04:46→19:58)
[2016-10-15 05:59] LABS: Basophils # (A) 0.1 k/uL (0-0.2); Basophils % (A) 1 %; CH 30.3; CHCM 31.3; Eosinophils # (A) 0.2 k/uL (0-0.7); Eosinophils % (A) 3 %; HCT 48.8 % (39.0-53.0); HGB 15.2 gm/dL (13.0-17.5); Luc # (Auto) 0.15; Luc % (Auto) 2; Lymphocytes # (A) 1.2 k/uL (1.0-4.8); Lymphocytes % (A) 15 %; MCH 30.2 pg (25.0-35.0); MCHC 31.1 g/dL (31.0-37.0); MCV 97.2 fL (80.0-100.0); Mean Platelet Volume 8.1; Monocytes # (A) 0.5 k/uL (0-1.0); Monocytes % (A) 7 %; Neutrophils # (A) 5.4 k/uL (1.3-7.7); Neutrophils % (A) 72 %; RBC 5.02 m/uL (4.30-5.90); RDW 15.7 % (11.5-15.5); WBC 7.5 k/uL (3.8-10.6); WBC (Perox) 7.12
[2016-10-15 06:12] LABS: Anion Gap 6 mmol/L; Blood Urea Nitrogen 14 mg/dL (9-20); Calcium 8.1 mg/dL (8.4-10.2); Carbon Dioxide 28 mmol/L (22-30); Chloride 102 mmol/L (98-107); Glucose 92 mg/dL (74-99); Non-African American GFR(MDRD) >60 (>60 ml/min/1.73 sqM); Sodium 136 mmol/L (137-145)
[2016-10-15] MEDS: PANTOPRAZOLE 40 MG TABLET PO SCH ×2 (06:35→17:40)
[2016-10-15] MEDS: IPRATROPIUM-ALBUTEROL 3 ML NEB INHALATION PRN ×4 (08:44→20:09)
[2016-10-15] MEDS: ASPIRIN 81 MG PO SCH (08:51)
[2016-10-15] MEDS: CYCLOBENZAPRINE 10 MG TAB PO SCH ×3 (08:51→21:00)
[2016-10-15] MEDS: METOPROLOL TARTRATE 50 MG TAB PO SCH ×2 (08:51→21:00)
[2016-10-15] MEDS: FUROSEMIDE 10 MG/ML 4 ML VIAL IV SCH ×2 (08:51→21:00)
[2016-10-15] MEDS: metFORMIN 500 MG TAB PO SCH ×2 (08:51→17:40)
[2016-10-15] MEDS: SPIRONOLACTONE 25 MG TAB PO SCH ×2 (08:51→21:00)
[2016-10-15 10:56] VITALS: RESP 18
--- NOTE | 2016-10-15 11:21 | P.PN ---
Subjective Principal diagnosis: Patient was found to have positive pulmonary embolus. Patient on heparin. Consultation ordered for pulmonology. Patient was seen by cardiology echo showed ejection fraction less than 20% worsening from last echo Objective - Vital Signs Vital signs: Vital Signs Temp 97.3 F L 10/15/16 08:00 Pulse 66 10/15/16 08:55 Resp 18 10/15/16 08:00 BP 94/54 10/15/16 08:00 Pulse Ox 92 L 10/15/16 08:00 Intake & Output 10/14/16 10/15/16 10/15/16 18:59 06:59 18:59 Intake Total 875.692 441.855 222.161 Output Total 900 600 Balance -24.308 -158.145 222.161 Weight 84.4 kg Intake: Intake, IV Titration 415.692 441.855 122.161 Amount Heparin Sodium,Porcine/ 415.692 441.855 122.161 D5w Pmx 25,000 unit In Dextrose/Water 1 500ml. bag @ 20 mls/hr IV .Q24H [facility] Rx#:[id number] Oral 460 100 Output: Urine 900 600 Other: Voiding Method Urinal # Voids 2 - Constitutional General appearance: Present: obese - EENT Eyes: Present: PERRLA Ears: bilateral: normal - Neck Neck: Present: normal ROM - Respiratory Respiratory: bilateral: diminished - Cardiovascular Rhythm: regular - Gastrointestinal General gastrointestinal: Present: distended - Integumentary Integumentary: Present: normal - Neurologic Neurologic: Present: CNII-XII intact - Musculoskeletal Musculoskeletal: Present: generalized weakness - Psychiatric Psychiatric: Present: A&O x's 3, appropriate affect, intact judgment & insight - Labs CBC & Chem 7: 10/15/16 05:44 10/15/16 05:44 Labs: Abnormal Lab Results - Last 24 Hours (Table) 10/14/16 10/14/16 10/15/16 Range/Units 11:43 19:38 05:44 RDW (11.5-15.5) % APTT 42.2 H 55.9 H 63.2 H (22.0-30.0) sec D-Dimer 1.94 H (<0.60) mg/L FEU Sodium (137-145) mmol/L Calcium (8.4-10.2) mg/dL 10/15/16 10/15/16 Range/Units 05:44 05:44 RDW 15.7 H (11.5-15.5) % APTT (22.0-30.0) sec D-Dimer (<0.60) mg/L FEU Sodium 136 L (137-145) mmol/L Calcium 8.1 L (8.4-10.2) mg/dL - Imaging and Cardiology CT scan - chest: report reviewed Assessment and Plan Plan: Assessment Chest pain Pulmonary embolism History of CVA/TIA History of cardiomyopathy severe systolic dysfunction with ejection fraction less than 20% Chronic abdominal ascites with numerous paracentesis Diabetes type 2 Chronic back pain with narcotic dependency History of nicotine use Left leg edema Plan Patient continues on heparin Consultation with cardiology and pulmonology
--- NOTE | 2016-10-15 13:17 | P.PN ---
Subjective Principal diagnosis: Chest pain and shortness of breath This is a 61-year-old gentleman who follows regularly with Dr. Mayers in the office. He has a known history of coronary artery disease with prior myocardial infarctions and multiple stent placements, diabetes, hypertension, hyperlipidemia, paroxysmal atrial fibrillation, ischemic cardiomyopathy, PVD, GERD, prior TIA, COPD, nicotine dependence, recurrent episodes of ascites status post multiple paracentesis. Patient presents to the hospital with symptoms of chest discomfort with associated shortness of breath. Patient states symptoms started Wednesday evening, he had 2 or 3 episodes again on Wednesday, yesterday again pain started, much more severe, describes it as a pressure sensation as well as sharp pain. EKG on admission showed atrial fibrillation with a rapid ventricular response. Chest x-ray reveals interstitial lung disease and possible pulmonary venous hypertension with interstitial edema. Patient is unsure as to timing of his most recent stress test. He did have an echocardiogram with Doppler study performed in February 2016 which revealed an ejection fraction of 20-25% with evidence of inferior septal and posterior hypokinesia. Overall global hypokinesia of the LV. At the time of my examination this morning he is currently chest pain-free, he just complains of a sore throat. 10/15/2016 CT of the chest was performed which was positive for acute pulmonary emboli, moderate burden on the left and mild on the right. Thrombus is located in his proximal and distal left main pulmonary artery. Patient is currently on IV heparin and was taking Lovenox twice a day at home. His Lovenox however had to be stopped on several occasions for his paracentesis. Venous duplex study negative for DVT Objective - Vital Signs Vital signs: Vital Signs Temp 97.3 F L 10/15/16 08:00 Pulse 66 10/15/16 11:48 Resp 18 10/15/16 08:00 BP 94/54 10/15/16 08:00 Pulse Ox 92 L 10/15/16 08:00 Intake & Output 10/14/16 10/15/16 10/15/16 18:59 06:59 18:59 Intake Total 875.692 441.855 222.161 Output Total 900 600 Balance -24.308 -158.145 222.161 Weight 84.4 kg Intake: Intake, IV Titration 415.692 441.855 122.161 Amount Heparin Sodium,Porcine/ 415.692 441.855 122.161 D5w Pmx 25,000 unit In Dextrose/Water 1 500ml. bag @ 20 mls/hr IV .Q24H [facility] Rx#:[id number] Oral 460 100 Output: Urine 900 600 Other: Voiding Method Urinal # Voids 2 2 - Exam PHYSICAL EXAMINATION: HEENT: Head is atraumatic, normocephalic. Pupils equal, round. Neck is supple. There is no elevated jugular venous pressure. HEART EXAMINATION: Heart S1 and S2 irregularly irregular CHEST EXAMINATION:'s reveal fine expiratory wheezes with decreased air entry to the bases. ABDOMEN: Distended, nontender. Evidence of ascites. Bowel sounds are heard. No organomegaly noted. EXTREMITIES: 1+ peripheral pulses with 1+ evidence of peripheral edema left leg greater than right, no calf tenderness noted. NEUROLOGIC [patient is awake, alert and oriented -3.] . - Labs CBC & Chem 7: 10/15/16 05:44 10/15/16 05:44 Labs: Abnormal Lab Results - Last 24 Hours (Table) 10/14/16 10/15/16 10/15/16 Range/Units 19:38 05:44 05:44 RDW 15.7 H (11.5-15.5) % APTT 55.9 H 63.2 H (22.0-30.0) sec Sodium (137-145) mmol/L Calcium (8.4-10.2) mg/dL 10/15/16 Range/Units 05:44 RDW (11.5-15.5) % APTT (22.0-30.0) sec Sodium 136 L (137-145) mmol/L Calcium 8.1 L (8.4-10.2) mg/dL Assessment and Plan Plan: Assessment and plan #1 chest pain, atypical for acute coronary syndrome. Troponins 0.012, 0.012, 0.014. EKG shows atrial fibrillation with rapid ventricular response, no acute changes noted. #2 systolic congestive heart failure acute on chronic #3 known history of coronary artery disease with multiple prior stent placements #4 paroxysmal atrial fibrillation, on Lovenox as an outpatient. #5 recurrent ascites with frequent paracentesis #6 hyperlipidemia #7 nicotine dependence #8 diabetes #9 COPD #10 prior TIA #11 marijuana use #12 history of noncompliance #13 positive pulmonary embolism Plan From cardiology's perspective, we will recommend to continue IV heparin, continue IV Lasix. DNP note has been reviewed, I agree with a documented findings and plan of care. Patient was seen and examined.
[2016-10-15] MEDS: LISINOPRIL 20 MG TAB PO SCH (13:22)
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
[2016-10-15] MEDS: ATORVASTATIN 80 MG TAB PO SCH (21:00)
[2016-10-16] MEDS: HYDROmorphone 1 MG/ML 1 ML SYRINGE IVP PRN ×3 (03:07→11:49)
[2016-10-16] MEDS: PANTOPRAZOLE 40 MG TABLET PO SCH (06:39)
[2016-10-16 06:50] LABS: Basophils % (A) 1 %; CH 30.3; CHCM 31.9; Eosinophils # (A) 0.2 k/uL (0-0.7); Eosinophils % (A) 3 %; HCT 47.6 % (39.0-53.0); HDW 2.23; HGB 14.8 gm/dL (13.0-17.5); Luc # (Auto) 0.14; Luc % (Auto) 2; Lymphocytes # (A) 1.1 k/uL (1.0-4.8); Lymphocytes % (A) 15 %; MCH 29.7 pg (25.0-35.0); MCV 95.6 fL (80.0-100.0); Mean Platelet Volume 8.1; Monocytes # (A) 0.5 k/uL (0-1.0); Monocytes % (A) 7 %; Neutrophils % (A) 72 %; RBC 4.98 m/uL (4.30-5.90); RDW 15.8 % (11.5-15.5); WBC 6.9 k/uL (3.8-10.6); WBC (Perox) 6.45
[2016-10-16] MEDS: metFORMIN 500 MG TAB PO SCH (08:30)
[2016-10-16] MEDS: METOPROLOL TARTRATE 50 MG TAB PO SCH (08:30)
[2016-10-16] MEDS: SPIRONOLACTONE 25 MG TAB PO SCH (08:30)
[2016-10-16] MEDS: ASPIRIN 81 MG PO SCH (08:31)
[2016-10-16] MEDS: LISINOPRIL 20 MG TAB PO SCH (08:31)
[2016-10-16] MEDS: FUROSEMIDE 10 MG/ML 4 ML VIAL IV SCH (08:31)
[2016-10-16] MEDS: CYCLOBENZAPRINE 10 MG TAB PO SCH (08:31)
[2016-10-16] MEDS: IPRATROPIUM-ALBUTEROL 3 ML NEB INHALATION PRN ×2 (08:46→11:52)
[2016-10-16] MEDS ORDERED: ENOXAPARIN 80 MG/0.8 ML SYRINGE SQ SCH (14:15)
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
[2016-10-16 15:10] VITALS: BP 110/60; PULSE 68; TEMP 97.1
--- NOTE | 2016-10-16 17:13 | P.DS ---
Providers Date of admission: 10/14/16 16:21 Attending physician: Andrews Escobar Consults: 10/13/16 16:47 Consult Physician Urgent Consulting Provider: [facility] Consult Reason/Comments: Unstable angina Do you want consulting provider notified?: Yes 10/14/16 13:30 Consult Physician Urgent Consulting Provider: Oliverio Mc Consult Reason/Comments: pulmonary embolism Do you want consulting provider notified?: Yes Primary care physician: Andrews Escobar Hospital Course: Patient with history of DVT in the past came in with compensative chest pain and shortness of breath patient is being treated for congestive heart failure which he has on admission. Patient has ejection fraction of around 20-25%. Patient underwent the CAT scan of the chest which showed bilateral pulmonary embolism. Patient held his Lovenox for paracentesis which he is supposed to have on 10/20/2016. Patient was started back on Lovenox patient is taking one 20 mg twice a day of subcutaneous Lovenox which will be changed to 80 mg twice a day because of his weight which is 83 kg. Patient is clinically stable respiratory failure improved patient is euvolemic. Patient will be discharged on his home dose of Lasix, all that on and losartan. And patient was asked to start back on Lovenox held Lovenox only a day before the paracentesis procedure. Patient actually in ideal scenario can continue Lovenox without any interruption for paracentesis, if that is agreeable by interventional radiology. Patient undergoes once biweekly therapeutic paracentesis for his ascites. Patient will be discharged to home with follow-up with Dr. Escobar as an outpatient. PHYSICAL EXAMINATION: GENERAL: The patient is alert and oriented x3, not in any acute distress. Well developed, well nourished. HEENT: Pupils are round and equally reacting to light. EOMI. No scleral icterus. No conjunctival pallor. Normocephalic, atraumatic. No pharyngeal erythema. No thyromegaly. CARDIOVASCULAR: S1 and S2 present. No murmurs, rubs, or gallops. PULMONARY: Chest is clear to auscultation, no wheezing or crackles. ABDOMEN: Soft, nontender, nondistended, normoactive bowel sounds. No palpable organomegaly. MUSCULOSKELETAL: No joint swelling or deformity. EXTREMITIES: No cyanosis, clubbing, or pedal edema. NEUROLOGICAL: Gross neurological examination did not reveal any focal deficits. SKIN: No rashes. Assessment and plan #1 chest pain, atypical for acute coronary syndrome. Troponins 0.012, 0.012, 0.014. Secondary to pulmonary embolism as mentioned above #2 systolic congestive heart failure acute on chronic #3 known history of coronary artery disease with multiple prior stent placements #4 paroxysmal atrial fibrillation, on Lovenox as an outpatient. Patient does have pulmonary embolism as well. #5 recurrent ascites with frequent paracentesis #6 hyperlipidemia #7 nicotine dependence #8 diabetes #9 COPD #10 prior TIA #11 marijuana use #12 history of noncompliance #13 positive pulmonary embolism Plan - Discharge Summary New Discharge Prescriptions: New Enoxaparin [Lovenox] 80 mg SQ Q12H #30 syringe Continue metFORMIN HCL [Glucophage] 1,000 mg PO PC-SUPPER Hydrocodone/Acetaminophen [[place] 10-325] 1 tab PO Q4H PRN PRN Reason: Pain Ipratropium/Albuterol Sulfate [Combivent Respimat Inhaler] 1 puff INHALATION RT-TID PRN PRN Reason: Shortness Of Breath Metoprolol Tartrate [Lopressor] 50 mg PO BID #60 tab Atorvastatin [Lipitor] 80 mg PO HS Omeprazole [PriLOSEC] 20 mg PO BID #60 capsule. Cyclobenzaprine [Flexeril] 10 mg PO TID PRN PRN Reason: Pain metFORMIN HCL [Glucophage] 500 mg PO QAM Albuterol Inhaler [Ventolin Hfa Inhaler] 1 puff INHALATION RT-Q6H PRN PRN Reason: Shortness Of Breath Spironolactone [Aldactone] 25 mg PO BID Lisinopril [Prinivil] 20 mg PO DAILY Furosemide [Lasix] 40 mg PO BID #60 tablet Discontinued Enoxaparin [Lovenox] 120 mg SQ BID Discharge Medication List metFORMIN HCL [Glucophage] 1,000 mg PO PC-SUPPER 11/29/13 [History] Hydrocodone/Acetaminophen [[place] 10-325] 1 tab PO Q4H PRN 02/01/14 [History] Ipratropium/Albuterol Sulfate [Combivent Respimat Inhaler] 1 puff INHALATION RT- TID PRN 02/01/14 [History] Metoprolol Tartrate [Lopressor] 50 mg PO BID #60 tab 02/07/14 [Rx] Atorvastatin [Lipitor] 80 mg PO HS 04/13/14 [History] Omeprazole [PriLOSEC] 20 mg PO BID #60 capsule. 04/27/14 [Rx] Cyclobenzaprine [Flexeril] 10 mg PO TID PRN 05/10/14 [History] metFORMIN HCL [Glucophage] 500 mg PO QAM 05/10/14 [History] Albuterol Inhaler [Ventolin Hfa Inhaler] 1 puff INHALATION RT-Q6H PRN 10/27/15 [ History] Spironolactone [Aldactone] 25 mg PO BID 01/24/16 [History] Lisinopril [Prinivil] 20 mg PO DAILY 06/16/16 [History] Furosemide [Lasix] 40 mg PO BID #60 tablet 09/04/16 [Rx] Enoxaparin [Lovenox] 80 mg SQ Q12H #30 syringe 10/16/16 [Rx] Follow up Appointment(s)/Referral(s): Andrews Escobar MD [Primary Care Provider] - 10/20/16 11:30 am Kwaku Thomason DO [Doctor of Osteopathic Medicine] - 1 Week (Please call office to make appointment when open) [facility], [NON-STAFF] - Activity/Diet/Wound Care/Special Instructions: Stop Lovenox one day prior to Procedure Begin Lovenox after the procedure same day in PM Discharge Disposition: HOME SELF-CARE
--- NOTE | 2016-10-17 15:53 | PN ---
Mr. Monet is a 61-year-old gentleman with history of cardiomyopathy, CHF who has been having repeated abdominocentesis for ascites. The patient also has history of DVT. The patient has been on Lovenox. The patient is admitted to the hospital at this time with complaints of chest pain which are atypical. His troponin values are inconclusive. The patient's CT scan showed evidence of pulmonary emboli. The patient was treated with IV heparin. Dr. Thakkar stopped the IV heparin and started him on Lovenox 80 mg twice daily. The patient is being discharged by him. The patient is overall relatively stable. He still has some shortness of breath and wheezing. Does not appear to be in any acute distress. PHYSICAL EXAMINATION: Reveals a gentleman who is alert and oriented. Does not appear to be in any acute distress. NECK: Supple. HEART: S1/S2 heard. Distant heart sounds. LUNGS: Show expiratory wheezes. ABDOMEN: Soft. EXTREMITIES: No significant edema. NEUROLOGIC: No gross deficit. FINAL IMPRESSION: 1. Chest pain which appeared to be atypical. 2. Pulmonary emboli as per CAT scan report. 3. Deep venous thrombosis history. [facility]
== END 2016-10-16 15:23 | disposition home health service (06) | DRG 175 ==
LOC: EC 14:56 → 6SEL 16:48 → OBSVTOIN 10-14 16:21 → 6SEL 10-16 01:23
PROVIDERS: ADMIT Family Medicine; ATTEND Family Medicine
DX: I26.99 Other pulmonary embolism without acute cor pulmonale (principal); I50.23 Acute on chronic systolic (congestive) heart failure; J84.9 Interstitial pulmonary disease, unspecified; R18.8 Other ascites; I69.954 Hemiplegia and hemiparesis following unspecified cerebrovascular disease affecting left non-dominant side; F11.20 Opioid dependence, uncomplicated; I25.110 Atherosclerotic heart disease of native coronary artery with unstable angina pectoris; E11.51 Type 2 diabetes mellitus with diabetic peripheral angiopathy without gangrene; R13.10 Dysphagia, unspecified; I11.0 Hypertensive heart disease with heart failure; I48.0 Paroxysmal atrial fibrillation; I25.2 Old myocardial infarction; I25.5 Ischemic cardiomyopathy; G89.29 Other chronic pain; M54.9 Dorsalgia, unspecified; E78.5 Hyperlipidemia, unspecified; K21.9 Gastro-esophageal reflux disease without esophagitis; F17.210 Nicotine dependence, cigarettes, uncomplicated; J44.9 Chronic obstructive pulmonary disease, unspecified; F12.90 Cannabis use, unspecified, uncomplicated; K57.90 Diverticulosis of intestine, part unspecified, without perforation or abscess without bleeding; F41.9 Anxiety disorder, unspecified; Z79.84 Long term (current) use of oral hypoglycemic drugs; Z79.899 Other long term (current) drug therapy; Z86.711 Personal history of pulmonary embolism; Z95.5 Presence of coronary angioplasty implant and graft; Z91.19 Patient's noncompliance with other medical treatment and regimen; Z86.718 Personal history of other venous thrombosis and embolism; Z88.5 Allergy status to narcotic agent; Z88.8 Allergy status to other drugs, medicaments and biological substances
CPT/HCPCS: 36415; 71020; 71275; 80048; 80053; 80061; 82550; 82553; 83735; 83880; 84484; 85025; 85379; 85610; 85730; 86850; 86900; 86901; 93005; 93306; 94640; 96374; 96375; 99291

== ENCOUNTER 2016-10-20 11:51 | Day surgery (SDC) | payer OTHER ==
[2016-10-20 12:55] LABS: Mean Platelet Volume 8.3
[2016-10-20 13:01] LABS: Non-African American GFR(MDRD) >60 (>60 ml/min/1.73 sqM)
[2016-10-20 13:11] LABS: INR 1.2 (<1.2); Prothrombin Time 11.8 sec (9.0-12.0)
[2016-10-20 13:14] VITALS: TEMP 98
[2016-10-20 13:54] VITALS: RESP 16
[2016-10-20 14:34] LABS: Glucose,Whole Blood 93 mg/dL (75-99)
[2016-10-20 15:11] VITALS: BP 138/78; PULSE 76
--- NOTE | 2016-10-20 15:39 | US ---
EXAMINATION TYPE: US paracentesis abd w/image DATE OF EXAM: 10/20/2016 COMPARISON: NONE HISTORY: Ascites. PROCEDURE: Maximal barrier technique was utilized. The skin overlying a suitable pocket of fluid was localized with ultrasound and the overlying skin was prepped and draped. Ultrasound was utilized with sterile technique. Lidocaine was used for local anesthesia and a skin gilbert made with a scalpel. Catheter was advanced under direct ultrasound guidance into a suitable pocket of fluid and approximately 7.6 liter s of serous fluid were removed. Catheter was withdrawn and hemostasis achieved. There is no immedia te complication; the patient is discharged in stable condition. IMPRESSION: STATUS POST ULTRASOUND GUIDED PARACENTESIS FOR PALLIATION OF ASCITES. THIS PROCEDURE WA S PERFORMED BY THE UNDERSIGNED.
== END 2016-10-20 15:12 | disposition home or self-care (01) ==
LOC: RADPROMAIN 11:51
PROVIDERS: ATTEND Family Medicine
DX: R18.8 Other ascites (principal)
CPT/HCPCS: 36415; 49083; 82565; 85049; 85610

== ENCOUNTER 2016-11-02 11:59 | Day surgery (SDC) | payer OTHER ==
[2016-11-02 12:45] LABS: Mean Platelet Volume 7.9
[2016-11-02 12:47] VITALS: RESP 14; TEMP 97.8
[2016-11-02 13:19] LABS: INR 1.2 (<1.2)
[2016-11-02] MEDS ORDERED: ALBUMIN HUMAN 25% 50 ML in EMPTY BAG 1 BAG IVPB SCH (14:45)
[2016-11-02 14:56] VITALS: BP 125/73; PULSE 87
--- NOTE | 2016-11-02 16:50 | US ---
EXAMINATION TYPE: US paracentesis abd w/image DATE OF EXAM: 11/02/2016 COMPARISON: NONE HISTORY: Ascites. PROCEDURE: Maximal barrier technique was utilized. The skin overlying a suitable pocket of fluid was localized with ultrasound and the overlying skin was prepped and draped. Ultrasound was utilized with sterile technique. Lidocaine was used for local anesthesia and a skin gilbert made with a scalpel. Catheter was advanced under direct ultrasound guidance into a suitable pocket of fluid and approximately 7.9 liter s of serous fluid were removed. Catheter was withdrawn and hemostasis achieved. There is no immedia te complication; the patient is discharged in stable condition. IMPRESSION: STATUS POST ULTRASOUND GUIDED PARACENTESIS FOR PALLIATION OF ASCITES. THIS PROCEDURE WA S PERFORMED BY THE UNDERSIGNED.
== END 2016-11-03 15:00 | disposition home or self-care (01) ==
LOC: RADPROMAIN 11:59
PROVIDERS: ATTEND Family Medicine
DX: R18.8 Other ascites (principal); Z88.5 Allergy status to narcotic agent
CPT/HCPCS: 49083; 85049; 85610

== ENCOUNTER 2016-11-17 11:50 | Day surgery (SDC) | payer OTHER ==
[2016-11-17 12:48] LABS: Mean Platelet Volume 7.1
[2016-11-17 12:57] LABS: INR 1.2 (<1.2); Non-African American GFR(MDRD) >60 (>60 ml/min/1.73 sqM); Prothrombin Time 11.7 sec (9.0-12.0)
[2016-11-17 12:59] LABS: Glucose,Whole Blood 95 mg/dL (75-99)
[2016-11-17 13:21] VITALS: RESP 16
[2016-11-17] MEDS: ALBUMIN HUMAN 25% 50 ML in EMPTY BAG 1 BAG IVPB SCH ×4 (14:31→15:17)
--- NOTE | 2016-11-17 14:57 | US ---
Therapeutic paracentesis. DATE OF EXAM: 11/17/2016 CLINICAL HISTORY: Ascites The procedure was discussed with the patient. The risks, complications, benefits, and alternatives we re discussed and any questions were answered. Informed consent was obtained. The patient was placed s upine on the ultrasound table and prepped and draped in the usual sterile fashion. All elements of maximal barrier technique were utilized. Under ultrasound guidance, access into the right lower quadrant was obtained, via the paracentesis catheter system and direct ultrasound guidanc e. Approximately 8.6 liters of straw-colored fluid was removed. The patient was stable throughout the pr ocedure and remained stable upon discharge from Department of Radiology. IMPRESSION: Successful therapeutic paracentesis under ultrasound guidance.
[2016-11-17 15:16] VITALS: BP 124/75; PULSE 80; TEMP 98
== END 2016-11-17 15:45 | disposition home or self-care (01) ==
LOC: RADPROMAIN 11:50
PROVIDERS: ATTEND Family Medicine
DX: R18.8 Other ascites (principal); Z88.5 Allergy status to narcotic agent
CPT/HCPCS: 82565; 85049; 85610; 96365; 36415; 49083; P9047

== ENCOUNTER 2016-11-30 11:52 | Day surgery (SDC) | payer OTHER ==
[2016-11-30 12:18] LABS: Mean Platelet Volume 7.9
[2016-11-30 12:27] LABS: Non-African American GFR(MDRD) >60 (>60 ml/min/1.73 sqM)
[2016-11-30 12:46] LABS: INR 1.2 (<1.2); Prothrombin Time 11.6 sec (9.0-12.0)
[2016-11-30 15:04] VITALS: RESP 16
[2016-11-30 15:15] VITALS: BP 120/69; PULSE 94
--- NOTE | 2016-11-30 15:32 | US ---
EXAMINATION TYPE: US paracentesis abd w/image DATE OF EXAM: 11/30/2016 COMPARISON: NONE HISTORY: Ascites. PROCEDURE: Maximal barrier technique was utilized. The skin overlying a suitable pocket of fluid was localized with ultrasound and the overlying skin was prepped and draped. Ultrasound was utilized with sterile technique. Lidocaine was used for local anesthesia and a skin gilbert made with a scalpel. Catheter was advanced under direct ultrasound guidance into a suitable pocket of fluid and approximately 7 liters of serous fluid were removed. Catheter was withdrawn and hemostasis achieved. There is no immediate complication; the patient is discharged in stable condition. IMPRESSION: STATUS POST ULTRASOUND GUIDED PARACENTESIS FOR PALLIATION OF ASCITES. THIS PROCEDURE WA S PERFORMED BY THE UNDERSIGNED.
== END 2016-11-30 15:00 | disposition home or self-care (01) ==
LOC: RADPROMAIN 11:52
PROVIDERS: ATTEND Family Medicine
DX: R18.8 Other ascites (principal); Z88.5 Allergy status to narcotic agent
CPT/HCPCS: 36415; 49083; 82565; 85049; 85610

== ENCOUNTER 2016-12-14 07:56 | Day surgery (SDC) | payer OTHER ==
[2016-12-14 08:26] LABS: Mean Platelet Volume 7.4
[2016-12-14 08:28] VITALS: TEMP 97.8
[2016-12-14 08:33] LABS: INR 1.3 (<1.2); Prothrombin Time 12.7 sec (9.0-12.0)
[2016-12-14 08:37] LABS: Non-African American GFR(MDRD) >60 (>60 ml/min/1.73 sqM)
[2016-12-14 10:10] VITALS: RESP 16
--- NOTE | 2016-12-14 11:24 | US ---
Therapeutic paracentesis. DATE OF EXAM: 12/14/2016 CLINICAL HISTORY: Ascites The procedure was discussed with the patient. The risks, complications, benefits, and alternatives we re discussed and any questions were answered. Informed consent was obtained. The patient was placed s upine on the ultrasound table and prepped and draped in the usual sterile fashion. All elements of maximal barrier technique were utilized. Under ultrasound guidance, access into the right lower quadrant was obtained, via the paracentesis catheter system and direct ultrasound guidanc e. Approximately 7.2 liters of straw-colored fluid was removed. The patient was stable throughout the pr ocedure and remained stable upon discharge from Department of Radiology. IMPRESSION: Successful therapeutic paracentesis under ultrasound guidance.
[2016-12-14 11:40] VITALS: BP 125/75; PULSE 93
[2016-12-14] MEDS: ALBUMIN HUMAN 25% 50 ML in EMPTY BAG 1 BAG IVPB SCH (11:44)
== END 2016-12-14 11:30 | disposition home or self-care (01) ==
LOC: RADPROMAIN 07:56
PROVIDERS: ATTEND Family Medicine
DX: R18.8 Other ascites (principal); Z88.5 Allergy status to narcotic agent
CPT/HCPCS: 36415; 49083; 82565; 85049; 85610

== ENCOUNTER 2016-12-29 08:44 | Day surgery (SDC) | payer OTHER ==
[2016-12-29 09:46] LABS: Mean Platelet Volume 7.6
[2016-12-29 09:51] LABS: INR 1.2 (<1.2); Prothrombin Time 11.8 sec (9.0-12.0)
[2016-12-29 09:54] LABS: Non-African American GFR(MDRD) >60 (>60 ml/min/1.73 sqM)
[2016-12-29 10:55] VITALS: TEMP 97.6
[2016-12-29 11:08] VITALS: RESP 16
[2016-12-29 11:44] VITALS: PULSE 85
--- NOTE | 2016-12-29 12:24 | US ---
EXAMINATION TYPE: US paracentesis abd w/image DATE OF EXAM: 12/29/2016 COMPARISON: NONE HISTORY: Ascites. PROCEDURE: Maximal barrier technique was utilized. The skin overlying a suitable pocket of fluid was localized with ultrasound and the overlying skin was prepped and draped. Ultrasound was utilized with sterile technique. Lidocaine was used for local anesthesia and a skin gilbert made with a scalpel. Catheter was advanced under direct ultrasound guidance into a suitable pocket of fluid and approximately 7.7 liter s of serous fluid were removed. Catheter was withdrawn and hemostasis achieved. There is no immedia te complication; the patient is discharged in stable condition. IMPRESSION: STATUS POST ULTRASOUND GUIDED PARACENTESIS FOR PALLIATION OF ASCITES. THIS PROCEDURE WA S PERFORMED BY THE UNDERSIGNED.
[2016-12-29 13:16] VITALS: BP 132/56
== END 2016-12-29 12:10 | disposition home or self-care (01) ==
LOC: RADPROMAIN 08:44
PROVIDERS: ATTEND Family Medicine
DX: R18.8 Other ascites (principal)
CPT/HCPCS: 36415; 49083; 82565; 85049; 85610

== ENCOUNTER 2017-01-29 08:46 | Day surgery (SDC) | payer OTHER ==
[2017-01-29 09:33] VITALS: RESP 18; TEMP 98
[2017-01-29 09:37] LABS: Mean Platelet Volume 7.6
[2017-01-29 09:41] LABS: Glucose 109 mg/dL (74-99); Non-African American GFR(MDRD) >60 (>60 ml/min/1.73 sqM)
[2017-01-29 09:50] LABS: INR 1.2 (<1.2); Partial Thromboplastin Time 29.2 sec (22.0-30.0); Prothrombin Time 11.7 sec (9.0-12.0)
[2017-01-29] MEDS: ALBUMIN HUMAN 25% 50 ML in EMPTY BAG 1 BAG IVPB SCH ×2 (11:30→11:31)
[2017-01-29 11:34] VITALS: BP 121/73; PULSE 78
--- NOTE | 2017-01-29 12:17 | US ---
EXAMINATION TYPE: US paracentesis abd w/image DATE OF EXAM: 01/29/2017 COMPARISON: NONE HISTORY: Ascites. PROCEDURE: Maximal barrier technique was utilized. The skin overlying a suitable pocket of fluid was localized with ultrasound and the overlying skin was prepped and draped. Ultrasound was utilized with sterile technique. Lidocaine was used for local anesthesia and a skin gilbert made with a scalpel. Catheter was advanced under direct ultrasound guidance into a suitable pocket of fluid and approximately 6.3 liter s of serous fluid were removed. Catheter was withdrawn and hemostasis achieved. There is no immedia te complication; the patient is discharged in stable condition. IMPRESSION: STATUS POST ULTRASOUND GUIDED PARACENTESIS FOR PALLIATION OF ASCITES. THIS PROCEDURE WA S PERFORMED BY THE UNDERSIGNED.
== END 2017-01-29 11:40 | disposition home or self-care (01) ==
LOC: RADPROMAIN 08:46
PROVIDERS: ATTEND Family Medicine
DX: R18.8 Other ascites (principal)
CPT/HCPCS: 36415; 49083; 82565; 82947; 85049; 85610; 85730

== ENCOUNTER 2017-02-26 11:58 | Day surgery (SDC) | payer OTHER ==
[2017-02-26 12:59] LABS: Mean Platelet Volume 7.5
[2017-02-26 13:05] VITALS: RESP 14; TEMP 97.9
[2017-02-26 13:06] LABS: INR 1.2 (<1.2); Prothrombin Time 11.1 sec (9.0-12.0)
[2017-02-26 13:08] LABS: Non-African American GFR(MDRD) >60 (>60 ml/min/1.73 sqM)
[2017-02-26 14:29] VITALS: BP 137/73; PULSE 73
--- NOTE | 2017-02-26 15:50 | US ---
Therapeutic paracentesis. DATE OF EXAM: 02/26/2017 CLINICAL HISTORY: Ascites The procedure was discussed with the patient. The risks, complications, benefits, and alternatives we re discussed and any questions were answered. Informed consent was obtained. The patient was placed s upine on the ultrasound table and prepped and draped in the usual sterile fashion. All elements of maximal barrier technique were utilized. Under ultrasound guidance, access into the right lower quadrant was obtained, via the paracentesis catheter system and direct ultrasound guidanc e. Approximately 6.9 liters of straw-colored fluid was removed. The patient was stable throughout the pr ocedure and remained stable upon discharge from Department of Radiology. IMPRESSION: Successful therapeutic paracentesis under ultrasound guidance.
== END 2017-02-26 14:45 | disposition home or self-care (01) ==
LOC: RADPROMAIN 11:58
PROVIDERS: ATTEND Family Medicine
DX: R18.8 Other ascites (principal)
CPT/HCPCS: 49083; 82565; 82947; 85049; 85610

== ENCOUNTER → 2017-03-05 | Outpatient (CLI) | payer OTHER ==
[2017-03-06 11:58] LABS: CH 30.7; CHCM 32.1; HCT 49.1 % (39.0-53.0); HDW 2.19; HGB 15.6 gm/dL (13.0-17.5); MCH 30.5 pg (25.0-35.0); MCHC 31.8 g/dL (31.0-37.0); Mean Platelet Volume 6.9; RBC 5.11 m/uL (4.30-5.90); RDW 14.2 % (11.5-15.5); WBC 8.5 k/uL (3.8-10.6)
[2017-03-06 16:14] LABS: ALT 42 U/L (21-72); AST 30 U/L (17-59); Alkaline Phosphatase 192 U/L (38-126); Anion Gap 7 mmol/L; Blood Urea Nitrogen 17 mg/dL (9-20); Calcium 9.4 mg/dL (8.4-10.2); Carbon Dioxide 30 mmol/L (22-30); Chloride 104 mmol/L (98-107); Glucose 96 mg/dL (74-99); Non-African American GFR(MDRD) >60 (>60 ml/min/1.73 sqM); Potassium 4.4 mmol/L (3.5-5.1); Sodium 141 mmol/L (137-145); Total Bilirubin 0.4 mg/dL (0.2-1.3); Total Protein 5.7 g/dL (6.3-8.2)
--- NOTE | 2017-03-09 14:26 | CT ---
EXAMINATION TYPE: CT neck chest w con DATE OF EXAM: 03/06/2017 4:09 AM COMPARISON: CT chest 10/14/2016, 09/03/2016 HISTORY: Esophageal carcinoma CT DLP: 769.6 mGycm Automated exposure control for dose reduction was used. CONTRAST: CT scan of the neck and chest is performed following with IV Contrast, patient injected with 100 mL o f Omnipaque 300. Axial images are obtained, coronal and sagittal reformatted images are reviewed. FINDINGS: NECK: Airway: Question some asymmetry along the level of the false cords, some mucosal fullness present on the right compared to left. Parotid/submandibular glands: No gross abnormality seen. Carotid/Vascular Structures: Patent. There is a two-vessel thoracic aorta. Mild atheromatous change i s present at the carotid bifurcations. The left vertebral artery is dominant. Osseous Structures: There is an os odontoideum present. C6-7 shows anterior cervical fusion and disce ctomy. Posterior fusion anomaly present at C1. Other: Skull base is normal. There are some retained secretions present within the pharyngeal region, epiglottis appears somewhat thickened, true cords thought to be normal. CHEST: There are interstitial lung disease changes, thickening of interlobular septal lines. Coronary artery calcifications are present. There is no pleural or pericardial effusion. No evident aortic an eurysm or dissection. Some bronchial wall thickening is present. Calcified subcarinal node, mediastin al nodes, left hilar nodes present. The heart is enlarged. Inferior vena cava appears prominently possibly due to heart failure. The live r shows a nodular contour compatible with underlying cirrhosis. Calcifications are scattered within t he liver and spleen. There is ascites present. IMPRESSION: Findings compatible with cirrhosis, there is ascites. Old granulomatous disease. Interst itial lung disease. Cardiomegaly and coronary artery disease. Indeterminate thickening along the arye piglottic fold on the right, epiglottis. Postop changes. Congenital variants as described. Additional findings above.
== END | disposition home or self-care (01) ==
LOC: RADCTMAIN 17:20
PROVIDERS: ATTEND Radiology Radiation Oncology
DX: C13.1 Malignant neoplasm of aryepiglottic fold, hypopharyngeal aspect (principal); J84.9 Interstitial pulmonary disease, unspecified; R59.1 Generalized enlarged lymph nodes; I51.7 Cardiomegaly; I25.10 Atherosclerotic heart disease of native coronary artery without angina pectoris; Z98.890 Other specified postprocedural states
CPT/HCPCS: 80053; 85027; 70491; 71260; Q9967

== ENCOUNTER 2017-03-12 12:39 | Day surgery (SDC) | payer OTHER ==
[2017-03-12 13:13] LABS: Platelet Count 242 k/uL (150-450)
[2017-03-12 13:14] VITALS: RESP 14; TEMP 97.9
[2017-03-12 13:22] LABS: INR 1.1 (<1.2); Partial Thromboplastin Time 26.6 sec (22.0-30.0)
[2017-03-12 15:29] VITALS: BP 140/82; PULSE 85
--- NOTE | 2017-03-12 16:21 | US ---
EXAMINATION TYPE: US paracentesis abd w/image DATE OF EXAM: 03/12/2017 COMPARISON: NONE HISTORY: Ascites. PROCEDURE: Maximal barrier technique was utilized. The skin overlying a suitable pocket of fluid was localized with ultrasound and the overlying skin was prepped and draped. Ultrasound was utilized with sterile technique. Lidocaine was used for local anesthesia and a skin gilbert made with a scalpel. Catheter was advanced under direct ultrasound guidance into a suitable pocket of fluid and approximately 6.7 liter s of serous fluid were removed. Catheter was withdrawn and hemostasis achieved. There is no immedia te complication; the patient is discharged in stable condition. IMPRESSION: STATUS POST ULTRASOUND GUIDED PARACENTESIS FOR PALLIATION OF ASCITES. THIS PROCEDURE WA S PERFORMED BY THE UNDERSIGNED.
== END 2017-03-12 15:38 | disposition home or self-care (01) ==
LOC: RADPROMAIN 12:39
PROVIDERS: ATTEND Family Medicine
DX: R18.8 Other ascites (principal)
CPT/HCPCS: 49083; 85049; 85610; 85730

== ENCOUNTER 2017-03-26 08:45 | Day surgery (SDC) | payer OTHER ==
[2017-03-26 09:17] LABS: Mean Platelet Volume 8.1; Platelet Count 218 k/uL (150-450)
[2017-03-26 09:22] LABS: INR 1.2 (<1.2); Prothrombin Time 11.5 sec (9.0-12.0)
[2017-03-26 09:29] LABS: Glucose 95 mg/dL (74-99)
[2017-03-26 09:42] VITALS: RESP 18; TEMP 98.2
--- NOTE | 2017-03-26 11:12 | US ---
Therapeutic paracentesis. DATE OF EXAM: 03/26/2017 CLINICAL HISTORY: Ascites The procedure was discussed with the patient. The risks, complications, benefits, and alternatives we re discussed and any questions were answered. Informed consent was obtained. The patient was placed s upine on the ultrasound table and prepped and draped in the usual sterile fashion. All elements of maximal barrier technique were utilized. Under ultrasound guidance, access into the right lower quadrant was obtained, via the paracentesis catheter system and direct ultrasound guidanc e. Approximately 7 liters of straw-colored fluid was removed. The patient was stable throughout the proc edure and remained stable upon discharge from Department of Radiology. IMPRESSION: Successful therapeutic paracentesis under ultrasound guidance.
[2017-03-26 11:29] VITALS: BP 123/83; PULSE 80
== END 2017-03-26 11:20 | disposition home or self-care (01) ==
LOC: RADPROMAIN 08:45
PROVIDERS: ATTEND Family Medicine
DX: R18.8 Other ascites (principal)
CPT/HCPCS: 36415; 49083; 82565; 82947; 85049; 85610

== ENCOUNTER 2017-04-09 08:42 | Day surgery (SDC) | payer OTHER ==
[2017-04-09 09:25] LABS: Mean Platelet Volume 7.3; Platelet Count 219 k/uL (150-450)
[2017-04-09 09:29] LABS: INR 1.2 (<1.2); Prothrombin Time 11.5 sec (9.0-12.0)
[2017-04-09 09:59] LABS: Glucose 137 mg/dL (74-99)
[2017-04-09 10:02] VITALS: RESP 16; TEMP 97.6
[2017-04-09 11:34] VITALS: BP 127/76; PULSE 75
--- NOTE | 2017-04-09 16:02 | US ---
EXAMINATION TYPE: US paracentesis abd w/image DATE OF EXAM: 04/09/2017 COMPARISON: NONE HISTORY: Ascites. PROCEDURE: Maximal barrier technique was utilized. The skin overlying a suitable pocket of fluid was localized with ultrasound and the overlying skin was prepped and draped. Ultrasound was utilized with sterile technique. Lidocaine was used for local anesthesia and a skin gilbert made with a scalpel. Catheter was advanced under direct ultrasound guidance into a suitable pocket of fluid and approximately 5.9 liter s of serous fluid were removed. Catheter was withdrawn and hemostasis achieved. There is no immedia te complication; the patient is discharged in stable condition. IMPRESSION: STATUS POST ULTRASOUND GUIDED PARACENTESIS FOR PALLIATION OF ASCITES. THIS PROCEDURE WA S PERFORMED BY THE UNDERSIGNED.
== END 2017-04-09 12:20 | disposition home or self-care (01) ==
LOC: RADPROMAIN 08:42
PROVIDERS: ATTEND Family Medicine
DX: R18.8 Other ascites (principal); Z88.5 Allergy status to narcotic agent
CPT/HCPCS: 36415; 49083; 82565; 82947; 85049; 85610

== ENCOUNTER 2017-04-23 08:24 | Day surgery (SDC) | payer OTHER ==
[2017-04-23 09:12] LABS: Mean Platelet Volume 7.2; Platelet Count 231 k/uL (150-450)
[2017-04-23 09:13] VITALS: RESP 18; TEMP 97.4
[2017-04-23 09:17] LABS: INR 1.2 (<1.2); Prothrombin Time 11.2 sec (9.0-12.0)
[2017-04-23 10:26] VITALS: BP 135/78; PULSE 86
--- NOTE | 2017-04-23 11:11 | US ---
Therapeutic paracentesis. DATE OF EXAM: 04/23/2017 CLINICAL HISTORY: Ascites The procedure was discussed with the patient. The risks, complications, benefits, and alternatives we re discussed and any questions were answered. Informed consent was obtained. The patient was placed s upine on the ultrasound table and prepped and draped in the usual sterile fashion. All elements of maximal barrier technique were utilized. Under ultrasound guidance, access into the right lower quadrant was obtained, via the paracentesis catheter system and direct ultrasound guidanc e. Approximately 6.3 liters of straw-colored fluid was removed. The patient was stable throughout the pr ocedure and remained stable upon discharge from Department of Radiology. IMPRESSION: Successful therapeutic paracentesis under ultrasound guidance.
== END 2017-04-23 11:30 | disposition home or self-care (01) ==
LOC: RADPROMAIN 08:24
PROVIDERS: ATTEND Family Medicine
DX: R18.8 Other ascites (principal); Z88.5 Allergy status to narcotic agent
CPT/HCPCS: 36415; 49083; 82565; 85049; 85610

== ENCOUNTER 2017-05-07 11:56 | Day surgery (SDC) | payer OTHER ==
[2017-05-07 12:54] LABS: Mean Platelet Volume 7.1; Platelet Count 244 k/uL (150-450)
[2017-05-07 13:10] LABS: Glucose 106 mg/dL (74-99)
[2017-05-07 13:32] LABS: INR 1.2 (<1.2); Prothrombin Time 11.1 sec (9.0-12.0)
[2017-05-07 13:43] VITALS: TEMP 97.2
[2017-05-07 13:45] VITALS: RESP 16
--- NOTE | 2017-05-07 15:34 | US ---
Therapeutic paracentesis. DATE OF EXAM: 05/07/2017 CLINICAL HISTORY: Ascites The procedure was discussed with the patient. The risks, complications, benefits, and alternatives we re discussed and any questions were answered. Informed consent was obtained. The patient was placed s upine on the ultrasound table and prepped and draped in the usual sterile fashion. All elements of maximal barrier technique were utilized. Under ultrasound guidance, access into the right lower quadrant was obtained, via the paracentesis catheter system and direct ultrasound guidanc e. Approximately 4.8 liters of straw-colored fluid was removed. The patient was stable throughout the pr ocedure and remained stable upon discharge from Department of Radiology. IMPRESSION: Successful therapeutic paracentesis under ultrasound guidance.
[2017-05-07 16:18] VITALS: BP 131/67; PULSE 77
== END 2017-05-07 15:15 | disposition home or self-care (01) ==
LOC: RADPROMAIN 11:56
PROVIDERS: ATTEND Family Medicine
DX: R18.8 Other ascites (principal); Z88.5 Allergy status to narcotic agent; Z88.6 Allergy status to analgesic agent
CPT/HCPCS: 36415; 49083; 82565; 82947; 85049; 85610

== ENCOUNTER 2017-05-13 18:33 | Inpatient (IN) | payer OTHER ==
[2017-05-13] MEDS ORDERED: SODIUM CHLORIDE 0.9% 1,000 ML IV STA (19:00)
[2017-05-13] MEDS ORDERED: ONDANSETRON 4 MG/2 ML VIAL IVP STA (19:00)
[2017-05-13] MEDS ORDERED: NITROGLYCERIN OINT 1 INCH/GM PACKET TOPICAL STA (19:00)
[2017-05-13] MEDS ORDERED: fentaNYL (PF) 50 MCG/ML 2 ML AMP IV PRN ×3 (19:01→21:08)
[2017-05-13 19:11] LABS: Basophils % (A) 1 %; Eosinophils # (A) 0.1 k/uL (0-0.7); Eosinophils % (A) 2 %; HCT 52.3 % (39.0-53.0); HGB 16.7 gm/dL (13.0-17.5); Lymphocytes # (A) 0.6 k/uL (1.0-4.8); Lymphocytes % (A) 11 %; MCH 29.6 pg (25.0-35.0); MCHC 31.8 g/dL (31.0-37.0); Mean Platelet Volume 7.2; Monocytes # (A) 0.4 k/uL (0-1.0); Monocytes % (A) 7 %; Neutrophils # (A) 4.7 k/uL (1.3-7.7); Neutrophils % (A) 79 %; Platelet Count 253 k/uL (150-450); RBC 5.63 m/uL (4.30-5.90); RDW 13.8 % (11.5-15.5)
[2017-05-13 19:18] LABS: D-Dimer 2.35 mg/L FEU (<0.60)
[2017-05-13 19:19] LABS: ALT 32 U/L (21-72); AST 31 U/L (17-59); Albumin 3.9 g/dL (3.5-5.0); Alkaline Phosphatase 253 U/L (38-126); Anion Gap 12 mmol/L; Blood Urea Nitrogen 12 mg/dL (9-20); Calcium 9.7 mg/dL (8.4-10.2); Carbon Dioxide 30 mmol/L (22-30); Chloride 100 mmol/L (98-107); Glucose 106 mg/dL (74-99); Magnesium 1.9 mg/dL (1.6-2.3); Potassium 4.1 mmol/L (3.5-5.1); Sodium 142 mmol/L (137-145); Total Bilirubin 0.9 mg/dL (0.2-1.3); Total Protein 7.1 g/dL (6.3-8.2)
[2017-05-13 19:22] LABS: INR 1.2 (<1.2); Partial Thromboplastin Time 27.4 sec (22.0-30.0); Prothrombin Time 11.5 sec (9.0-12.0)
--- NOTE | 2017-05-13 19:33 | XR ---
EXAMINATION TYPE: XR chest 2V DATE OF EXAM: 05/13/2017 COMPARISON: 01/14/2017 HISTORY: Chest pain TECHNIQUE: 2 views FINDINGS: There is evidence for some mild infiltrate in the left lower lobe posteriorly. The other gonzalo ng figueroa are clear. There is no heart failure. I see no pleural effusion. Heart is top normal in siz e. There is cervical spine fusion surgery. IMPRESSION: No heart failure. There is a mild left lower lobe pulmonary infiltrate similar to old ex am. There is mild pulmonary congestion on the old exam that is improved on today's exam.
[2017-05-13 19:52] LABS: Troponin I 0.019 ng/mL (0.000-0.034)
[2017-05-13 19:54] LABS: Creatine Kinase MB 6.2 ng/mL (0.0-2.4)
[2017-05-13] MEDS ORDERED: RX INFO: IV CONTRAST WAS GIVEN 1 EACH MISC MISCELLANE PRN (20:25)
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
[2017-05-13] MEDS ORDERED: ONDANSETRON 4 MG/2 ML VIAL IVP PRN (20:35)
[2017-05-13] MEDS ORDERED: NALOXONE 0.4 MG/ML 1 ML VIAL IV PRN (20:35)
[2017-05-13] MEDS ORDERED: CYCLOBENZAPRINE 10 MG TAB PO PRN (20:42)
[2017-05-13] MEDS ORDERED: HYDROcodone/APAP 10-325MG 1 EACH TAB PO PRN (20:42)
[2017-05-13] MEDS ORDERED: ALBUTEROL NEBULIZED 2.5 MG/3 ML INHALATION PRN (20:42)
[2017-05-13] MEDS ORDERED: NON-FORMULARY DRUG (Omeprazole [Prilosec] 20 MG) PO SCH (21:00)
[2017-05-13] MEDS ORDERED: metFORMIN 500 MG TAB PO SCH (21:15)
[2017-05-13 21:20] LABS: Glucose,Whole Blood 79 mg/dL (75-99)
--- NOTE | 2017-05-13 21:49 | CT ---
EXAMINATION TYPE: CT chest angio for PE DATE OF EXAM: 05/13/2017 COMPARISON: October 14, 2016 HISTORY: Elevated D-Dimer CT DLP: 276.6 mGycm Automated exposure control for dose reduction was used. CONTRAST: CT Chest for pulmonary embolism performed with with IV Contrast, patient injected with 70 mL of Omnip aque 350. There are 3-D post processed images. FINDINGS: The lungs are clear of consolidation. There is no evidence of a pulmonary mass. There is no pleural e ffusion. There is moderate ascites fluid in the abdomen. Heart is enlarged. There is no pericardial effusion. There are large central pulmonary arteries. I se e no filling defects. Thoracic aorta is atheromatous. Ascending aorta measures 4 cm. There is coronar y artery calcification. The bony thorax is intact. IMPRESSION: No evidence of pulmonary embolism. Cardiomegaly. Large pulmonary arteries consistent with pulmonary h ypertension. Mild aneurysm of the thoracic aorta. There is clearing of pleural effusions compared to old exam. Ascites fluid is similar to old exam.
[2017-05-13] MEDS: METOPROLOL TARTRATE 50 MG TAB PO SCH (22:14)
[2017-05-13] MEDS: ENOXAPARIN 80 MG/0.8 ML SYRINGE SQ SCH (22:14)
[2017-05-13] MEDS: FUROSEMIDE 40 MG TAB PO SCH ×2 (22:15→22:22)
[2017-05-13] MEDS: ATORVASTATIN 80 MG TAB PO SCH (22:15)
[2017-05-13] MEDS: SPIRONOLACTONE 25 MG TAB PO SCH (22:15)
[2017-05-13] MEDS: metFORMIN 500 MG TAB PO SCH (22:15)
[2017-05-13] MEDS: NYSTATIN 100,000 UNIT/ML SUSP 500,000 UNIT/5 ML CUP PO SCH (22:16)
[2017-05-13] MEDS: cefTRIAXone IN SWFI 2,000 MG/20 ML SYRINGE IVP SCH (22:18)
[2017-05-14] MEDS: MORPHINE SULFATE 4 MG/ML SYRINGE IVP PRN ×4 (03:04→19:04)
[2017-05-14 05:51] LABS: Glucose,Whole Blood 66 mg/dL (75-99)
[2017-05-14 06:40] LABS: Glucose,Whole Blood 68 mg/dL (75-99)
[2017-05-14] MEDS: DEXTROSE 5%-0.9% NACL 1,000 ML IV SCH (06:45)
[2017-05-14 07:26] LABS: Glucose,Whole Blood 69 mg/dL (75-99)
[2017-05-14] MEDS: ENOXAPARIN 80 MG/0.8 ML SYRINGE SQ SCH (08:45)
[2017-05-14] MEDS: PANTOPRAZOLE 40 MG/10 ML VIAL IV SCH (08:45)
[2017-05-14] MEDS: metFORMIN 500 MG TAB PO SCH ×2 (08:52→22:39)
[2017-05-14] MEDS: IPRATROPIUM-ALBUTEROL 3 ML NEB INHALATION PRN ×2 (08:54→19:48)
[2017-05-14] MEDS: METOPROLOL TARTRATE 50 MG TAB PO SCH ×2 (08:55→22:05)
[2017-05-14] MEDS: FUROSEMIDE 40 MG TAB PO SCH ×2 (08:55→14:59)
[2017-05-14] MEDS: cefTRIAXone IN SWFI 2,000 MG/20 ML SYRINGE IVP SCH (08:55)
[2017-05-14] MEDS: SPIRONOLACTONE 25 MG TAB PO SCH ×2 (08:55→22:06)
[2017-05-14] MEDS: NYSTATIN 100,000 UNIT/ML SUSP 500,000 UNIT/5 ML CUP PO SCH ×3 (08:56→16:50)
--- NOTE | 2017-05-14 11:27 | FL ---
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 A total of 2.4 minutes fluoroscopic time was utili zed during procedure. Approximately 10 cine sequences are acquired but none are sent to PACS. COMPARISON: None. FINDINGS: The oral and pharyngeal phases show satisfactory initiation and propagation with thinner mo dalities tested. There is some delayed propagation with thicker modalities Satisfactory mastication i s seen with solid modalities tested. There is deep penetration and aspiration with solid modalities which do not initiate cough reflex. Significant pharyngeal residual was appreciated with more viscous modalities. IMPRESSION: Poor viscous modalities show significant residuals and penetration/aspiration. No aspirat ion observed with less viscous modalities. There is partial visualization of anterior fusion plate in the lower cervical spine. Please refer to speech therapist notes for further details if necessary.
[2017-05-14 12:06] LABS: Glucose,Whole Blood 86 mg/dL (75-99)
[2017-05-14 12:12] LABS: Hemoglobin A1C 5.9 % (4.0-6.0)
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
[2017-05-14 16:25] LABS: Glucose,Whole Blood 105 mg/dL (75-99)
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
[2017-05-14 20:46] LABS: Glucose,Whole Blood 125 mg/dL (75-99)
[2017-05-14] MEDS: HEPARIN SODIUM,PORCINE 5,000 UNIT/ML 1 ML VIAL SQ SCH (22:08)
[2017-05-14] MEDS: ATORVASTATIN 80 MG TAB PO SCH (22:39)
[2017-05-15] MEDS: MORPHINE SULFATE 4 MG/ML SYRINGE IVP PRN ×6 (00:21→21:01)
[2017-05-15] MEDS: DEXTROSE 5%-0.9% NACL 1,000 ML IV SCH ×2 (04:52→08:49)
[2017-05-15] MEDS: INSULIN ASPART 100 UNIT/ML 1 ML 10 ML VIAL SQ SCH ×5 (04:53→21:03)
[2017-05-15 06:23] LABS: Basophils # (A) 0.1 k/uL (0-0.2); Basophils % (A) 1 %; Eosinophils # (A) 0.2 k/uL (0-0.7); Eosinophils % (A) 3 %; HGB 15.5 gm/dL (13.0-17.5); Lymphocytes # (A) 0.9 k/uL (1.0-4.8); Lymphocytes % (A) 17 %; MCH 30.3 pg (25.0-35.0); MCHC 31.6 g/dL (31.0-37.0); Mean Platelet Volume 7.3; Monocytes # (A) 0.5 k/uL (0-1.0); Monocytes % (A) 9 %; Neutrophils # (A) 3.5 k/uL (1.3-7.7); Neutrophils % (A) 68 %; Platelet Count 247 k/uL (150-450); RDW 13.7 % (11.5-15.5); WBC 5.1 k/uL (3.8-10.6)
[2017-05-15 06:33] LABS: Anion Gap 6 mmol/L; Blood Urea Nitrogen 9 mg/dL (9-20); Calcium 8.2 mg/dL (8.4-10.2); Carbon Dioxide 34 mmol/L (22-30); Chloride 97 mmol/L (98-107); Glucose 99 mg/dL (74-99); Potassium 3.8 mmol/L (3.5-5.1); Sodium 137 mmol/L (137-145)
[2017-05-15 06:34] LABS: Glucose,Whole Blood 96 mg/dL (75-99)
[2017-05-15] MEDS: NYSTATIN 100,000 UNIT/ML SUSP 500,000 UNIT/5 ML CUP PO SCH ×5 (07:11→20:36)
[2017-05-15] MEDS ORDERED: ceFAZolin IN SWFI 2 GM/20 ML SYRINGE IVP ONE (07:30)
[2017-05-15] MEDS: cefTRIAXone IN SWFI 2,000 MG/20 ML SYRINGE IVP SCH (08:47)
[2017-05-15] MEDS: PANTOPRAZOLE 40 MG/10 ML VIAL IV SCH (08:48)
[2017-05-15] MEDS: IPRATROPIUM-ALBUTEROL 3 ML NEB INHALATION PRN ×2 (08:58→20:50)
[2017-05-15] MEDS ORDERED: IV FLUID CONTINUATION 950 ML IV ONE (09:20)
[2017-05-15] MEDS ORDERED: LIDOCAINE 1% INJ 10MG/ML (20 ML MDV) ONE (09:24)
[2017-05-15] MEDS ORDERED: PROPOFOL 10 MG/ML 20 ML VIAL IV ONE (09:24)
--- NOTE | 2017-05-15 09:55 | P.PCN ---
Date of Procedure: 05/15/17 Procedure(s) Performed: Procedure: Esophagogastroduodenoscopy and gastrostomy feeding tube placement. Preoperative diagnosis: Dysphagia and abnormal barium study. Postoperative diagnosis: 1. Upper endoscopy revealed no intrinsic esophageal, gastric or duodenal pathology. 2. Successful placement of a 20-Moroc[place] [employer] scientific gastrostomy feeding tube. Preparation sedation: Was provided by anesthesia. Brief clinical history: The patient is a 61-year-old male with a past medical history of right-sided heart failure ischemic cardiomyopathy EF 20-25% with refractory ascites requiring large volume paracentesis every 3 weeks, MD, chronic atrial fibrillation, PE/DVT, PVD, diabetes, MD, CVA recently diagnosed with throat carcinoma status post 32 radiation treatments. Last radiation treatment 8 days ago. Admitted with difficulty swallowing, chest discomfort unintentional weight loss and poor oral intake. Patient has had chronic dysphagia for at least a year and underwent an EGD evaluation in December 2016 with unremarkable findings however since completing his radiation he has had more difficulty swallowing solids more than liquids. Occasional blood-tinged emesis. MBS study suggestive of penetration aspiration but no mentioning of stricture or mass. Constant feeling of hunger. Approximate 10 kg weight loss 3 months. Last paracentesis 05/07/[address] chest cardiomegaly large pulmonary arteries consistent with pulmonary hypertension. No mentioning of pulmonary embolism. INR 1.2. Platelet 253. HGB 16.7. WBC 6.0. Procedure: With the patient on his supine position and after informed consent and adequate sedation, I passed the Olympus-GIF 160 video upper endoscope through the cricopharyngeus down the esophagus. There was thick secretions and exudates in the hypopharynx and cricopharyngeal area, which was suctioned, but there was no hesitation to the passing of the endoscope. No obvious abnormalities were seen in the esophagus. The endoscope was then passed into the stomach which was insufflated with air and inspected in detail including the retroflex view in the cardia. Finally, the endoscope was passed through the pylorus into the duodenum. No obvious abnormalities were seen in the stomach or duodenum or any evidence of gastric outlet obstruction and we proceeded to place a gastrostomy feeding tube. The skin was cleansed with Betadine. 1% Xylocaine was used for local anesthesia and a small incision was made using #11 blade. A needle catheter was then passed through the abdominal incision once inside the lumen of the stomach it was captured with the snare. Subsequently, a guidewire was passed through the needle catheter and captured with the snare and was withdrawn by withdrawing the endoscope and the snare. A 20-[place] [employer] scientific gastrostomy feeding tube was then passed over the guidewire and once it emerged through the abdominal incision it was pulled into position. I readvanced the endoscope down the esophagus into the stomach to confirm the appropriate placement of the feeding tube. The patient tolerated the procedure well. Plan: The patient will be allowed clear and thin liquids which did not give him difficulty in the barium study. His gastrostomy feeding tube can be used for enteric feeding starting tomorrow. He is already receiving Rocephin daily which would be continued.
[2017-05-15] MEDS: HEPARIN SODIUM,PORCINE 5,000 UNIT/ML 1 ML VIAL SQ SCH ×2 (10:08→20:37)
[2017-05-15] MEDS: metFORMIN 500 MG TAB PO SCH ×2 (10:09→20:21)
[2017-05-15] MEDS: METOPROLOL TARTRATE 50 MG TAB PO SCH ×2 (10:13→20:38)
[2017-05-15] MEDS: SPIRONOLACTONE 25 MG TAB PO SCH ×2 (10:13→20:37)
[2017-05-15] MEDS: FUROSEMIDE 40 MG TAB PO SCH ×2 (10:13→17:29)
[2017-05-15 12:17] LABS: Glucose,Whole Blood 108 mg/dL (75-99)
[2017-05-15 17:14] LABS: Glucose,Whole Blood 104 mg/dL (75-99)
[2017-05-15] MEDS: ATORVASTATIN 80 MG TAB PO SCH (20:38)
[2017-05-15 21:01] LABS: Glucose,Whole Blood 97 mg/dL (75-99)
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
[2017-05-16] MEDS: MORPHINE SULFATE 4 MG/ML SYRINGE IVP PRN ×6 (01:14→22:16)
[2017-05-16 05:51] LABS: Glucose,Whole Blood 88 mg/dL (75-99)
[2017-05-16 06:38] LABS: Basophils # (A) 0.1 k/uL (0-0.2); Basophils % (A) 1 %; Eosinophils # (A) 0.2 k/uL (0-0.7); Eosinophils % (A) 3 %; HCT 50.6 % (39.0-53.0); HGB 15.6 gm/dL (13.0-17.5); Lymphocytes # (A) 0.8 k/uL (1.0-4.8); Lymphocytes % (A) 14 %; MCH 29.5 pg (25.0-35.0); MCHC 30.8 g/dL (31.0-37.0); MCV 95.5 fL (80.0-100.0); Mean Platelet Volume 7.2; Monocytes # (A) 0.5 k/uL (0-1.0); Monocytes % (A) 9 %; Neutrophils % (A) 72 %; Platelet Count 236 k/uL (150-450); RDW 13.9 % (11.5-15.5); WBC 5.6 k/uL (3.8-10.6)
[2017-05-16] MEDS: DEXTROSE 5%-0.9% NACL 1,000 ML IV SCH ×2 (06:57→14:20)
[2017-05-16 07:03] LABS: Anion Gap 9 mmol/L; Blood Urea Nitrogen 7 mg/dL (9-20); Calcium 8.3 mg/dL (8.4-10.2); Carbon Dioxide 33 mmol/L (22-30); Chloride 98 mmol/L (98-107); Glucose 92 mg/dL (74-99); Potassium 3.5 mmol/L (3.5-5.1); Sodium 140 mmol/L (137-145)
[2017-05-16] MEDS: INSULIN ASPART 100 UNIT/ML 1 ML 10 ML VIAL SQ SCH ×4 (09:15→21:09)
[2017-05-16] MEDS: SPIRONOLACTONE 25 MG TAB PO SCH ×2 (09:29→21:10)
[2017-05-16] MEDS: METOPROLOL TARTRATE 50 MG TAB PO SCH ×2 (09:29→21:09)
[2017-05-16] MEDS: metFORMIN 500 MG TAB PO SCH ×2 (09:30→21:09)
[2017-05-16] MEDS: NYSTATIN 100,000 UNIT/ML SUSP 500,000 UNIT/5 ML CUP PO SCH ×4 (09:30→22:13)
[2017-05-16] MEDS: FUROSEMIDE 40 MG TAB PO SCH ×2 (09:30→18:38)
[2017-05-16] MEDS: HEPARIN SODIUM,PORCINE 5,000 UNIT/ML 1 ML VIAL SQ SCH ×2 (09:31→21:08)
[2017-05-16] MEDS: PANTOPRAZOLE 40 MG/10 ML VIAL IV SCH (09:31)
[2017-05-16 12:03] LABS: Glucose,Whole Blood 89 mg/dL (75-99)
[2017-05-16] MEDS: cefTRIAXone IN SWFI 2,000 MG/20 ML SYRINGE IVP SCH (12:44)
[2017-05-16 17:15] LABS: Glucose,Whole Blood 100 mg/dL (75-99)
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
[2017-05-16 20:57] LABS: Glucose,Whole Blood 106 mg/dL (75-99)
[2017-05-16] MEDS: ATORVASTATIN 80 MG TAB PO SCH (21:10)
[2017-05-16] MEDS: IPRATROPIUM-ALBUTEROL 3 ML NEB INHALATION PRN (21:22)
[2017-05-17 00:25] LABS: Glucose,Whole Blood 121 mg/dL (75-99)
[2017-05-17] MEDS: DEXTROSE 5%-0.9% NACL 1,000 ML IV SCH ×2 (02:07→17:47)
[2017-05-17] MEDS: MORPHINE SULFATE 4 MG/ML SYRINGE IVP PRN ×6 (02:29→23:35)
[2017-05-17 06:00] LABS: Glucose,Whole Blood 89 mg/dL (75-99)
[2017-05-17] MEDS: INSULIN ASPART 100 UNIT/ML 1 ML 10 ML VIAL SQ SCH ×4 (06:23→23:01)
[2017-05-17 06:43] LABS: Basophils % (A) 1 %; Eosinophils # (A) 0.2 k/uL (0-0.7); Eosinophils % (A) 3 %; HGB 15.3 gm/dL (13.0-17.5); Lymphocytes # (A) 0.7 k/uL (1.0-4.8); Lymphocytes % (A) 15 %; MCH 29.9 pg (25.0-35.0); MCHC 31.2 g/dL (31.0-37.0); MCV 95.9 fL (80.0-100.0); Mean Platelet Volume 7.5; Monocytes # (A) 0.5 k/uL (0-1.0); Monocytes % (A) 9 %; Neutrophils # (A) 3.4 k/uL (1.3-7.7); Neutrophils % (A) 70 %; Platelet Count 225 k/uL (150-450); RBC 5.11 m/uL (4.30-5.90); RDW 13.8 % (11.5-15.5); WBC 4.9 k/uL (3.8-10.6)
[2017-05-17 06:50] LABS: Anion Gap 9 mmol/L; Blood Urea Nitrogen 5 mg/dL (9-20); Calcium 8.1 mg/dL (8.4-10.2); Carbon Dioxide 32 mmol/L (22-30); Chloride 99 mmol/L (98-107); Glucose 96 mg/dL (74-99); Potassium 3.3 mmol/L (3.5-5.1); Sodium 140 mmol/L (137-145)
[2017-05-17] MEDS: metFORMIN 500 MG TAB PO SCH ×2 (09:14→20:30)
[2017-05-17] MEDS: cefTRIAXone IN SWFI 2,000 MG/20 ML SYRINGE IVP SCH (09:16)
[2017-05-17] MEDS: FUROSEMIDE 40 MG TAB PO SCH ×2 (09:16→17:46)
[2017-05-17] MEDS: HEPARIN SODIUM,PORCINE 5,000 UNIT/ML 1 ML VIAL SQ SCH ×2 (09:16→20:31)
[2017-05-17] MEDS: SPIRONOLACTONE 25 MG TAB PO SCH ×2 (09:17→20:31)
[2017-05-17] MEDS: NYSTATIN 100,000 UNIT/ML SUSP 500,000 UNIT/5 ML CUP PO SCH ×4 (09:17→20:31)
[2017-05-17] MEDS: METOPROLOL TARTRATE 50 MG TAB PO SCH ×2 (09:17→20:30)
[2017-05-17] MEDS: PANTOPRAZOLE 40 MG/10 ML VIAL IV SCH (09:17)
[2017-05-17] MEDS ORDERED: Potassium Replacement Protocol 1 EACH MISC MISCELLANE PRN (10:45)
--- NOTE | 2017-05-17 11:04 | P.PN ---
Subjective Patient ambulating freely in the hallway. Continues to have dysphagia and voice hoarseness Objective - Vital Signs Vital signs: Vital Signs Temp 97.9 F 05/17/17 03:42 Pulse 64 05/17/17 08:00 Resp 20 05/17/17 08:00 BP 101/60 05/17/17 08:00 Pulse Ox 95 05/17/17 08:00 Intake & Output 05/16/17 05/17/17 05/17/17 18:59 06:59 18:59 Intake Total 825 Output Total 950 1400 Balance -950 -575 Weight 66.2 kg Intake: Intake, IV Titration 825 Amount Dextrose 5%-0.9% NaCl 1, 825 000 ml @ 75 mls/hr IV . [id number] MARY BETH Rx#:[id number] Output: Urine 950 1400 Other: Voiding Method Toilet Toilet Toilet Urinal Urinal Urinal # Voids 1 - Constitutional General appearance: Present: mild distress - EENT Eyes: Present: PERRLA Ears: bilateral: normal - Neck Neck: Present: normal ROM - Respiratory Respiratory: bilateral: CTA - Cardiovascular Rhythm: regular - Gastrointestinal General gastrointestinal: Present: soft, umbilical hernia - Integumentary Integumentary: Present: normal - Neurologic Neurologic: Present: CNII-XII intact - Musculoskeletal Musculoskeletal: Present: gait normal - Labs CBC & Chem 7: 05/17/17 05:41 05/17/17 05:41 Labs: Abnormal Lab Results - Last 24 Hours (Table) 05/16/17 05/16/17 05/17/17 Range/Units 16:55 20:55 00:13 Lymphocytes # (1.0-4.8) k/uL Potassium (3.5-5.1) mmol/L Carbon Dioxide (22-30) mmol/L BUN (9-20) mg/dL Creatinine (0.66-1.25) mg/dL POC Glucose (mg/dL) 100 H 106 H 121 H (75-99) mg/dL Calcium (8.4-10.2) mg/dL 05/17/17 05/17/17 Range/Units 05:41 05:41 Lymphocytes # 0.7 L (1.0-4.8) k/uL Potassium 3.3 L (3.5-5.1) mmol/L Carbon Dioxide 32 H (22-30) mmol/L BUN 5 L (9-20) mg/dL Creatinine 0.61 L (0.66-1.25) mg/dL POC Glucose (mg/dL) (75-99) mg/dL Calcium 8.1 L (8.4-10.2) mg/dL - Imaging and Cardiology Chest x-ray: report reviewed CT scan - chest: report reviewed Assessment and Plan Plan: Assessment 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
[2017-05-17] MEDS: POTASSIUM CHLORIDE ER 20 MEQ TAB.ER PO SCH ×2 (11:08→12:28)
[2017-05-17 11:50] VITALS: BMI 22.8
[2017-05-17 12:12] LABS: Glucose,Whole Blood 138 mg/dL (75-99)
[2017-05-17] MEDS: IPRATROPIUM-ALBUTEROL 3 ML NEB INHALATION PRN (13:08)
[2017-05-17 18:20] LABS: Glucose,Whole Blood 200 mg/dL (75-99)
[2017-05-17] MEDS: ATORVASTATIN 80 MG TAB PO SCH (20:31)
[2017-05-17 21:41] LABS: Glucose,Whole Blood 106 mg/dL (75-99)
[2017-05-18 00:36] LABS: Glucose,Whole Blood 106 mg/dL (75-99)
[2017-05-18] MEDS: MORPHINE SULFATE 4 MG/ML SYRINGE IVP PRN ×5 (03:25→21:26)
[2017-05-18] MEDS: DEXTROSE 5%-0.9% NACL 1,000 ML IV SCH ×2 (05:23→21:12)
[2017-05-18 06:14] LABS: Glucose,Whole Blood 83 mg/dL (75-99)
[2017-05-18] MEDS: INSULIN ASPART 100 UNIT/ML 1 ML 10 ML VIAL SQ SCH ×4 (07:43→21:10)
[2017-05-18] MEDS: cefTRIAXone IN SWFI 2,000 MG/20 ML SYRINGE IVP SCH (07:53)
[2017-05-18] MEDS: NYSTATIN 100,000 UNIT/ML SUSP 500,000 UNIT/5 ML CUP PO SCH ×4 (07:53→21:11)
[2017-05-18] MEDS: PANTOPRAZOLE 40 MG/10 ML VIAL IV SCH (07:53)
[2017-05-18] MEDS: HEPARIN SODIUM,PORCINE 5,000 UNIT/ML 1 ML VIAL SQ SCH ×2 (07:53→21:10)
[2017-05-18] MEDS: FUROSEMIDE 40 MG TAB PO SCH ×2 (07:54→16:02)
[2017-05-18] MEDS: SPIRONOLACTONE 25 MG TAB PO SCH ×2 (07:54→21:11)
[2017-05-18] MEDS: metFORMIN 500 MG TAB PO SCH ×3 (07:54→21:16)
[2017-05-18] MEDS: METOPROLOL TARTRATE 50 MG TAB PO SCH ×2 (07:54→21:11)
[2017-05-18 08:02] LABS: Basophils % (A) 1 %; Eosinophils # (A) 0.2 k/uL (0-0.7); Eosinophils % (A) 3 %; HCT 45.9 % (39.0-53.0); HGB 14.7 gm/dL (13.0-17.5); Lymphocytes # (A) 0.6 k/uL (1.0-4.8); Lymphocytes % (A) 10 %; MCH 29.9 pg (25.0-35.0); MCV 93.6 fL (80.0-100.0); Mean Platelet Volume 7.5; Monocytes # (A) 0.5 k/uL (0-1.0); Monocytes % (A) 8 %; Neutrophils # (A) 4.5 k/uL (1.3-7.7); Neutrophils % (A) 76 %; Platelet Count 211 k/uL (150-450); RDW 13.8 % (11.5-15.5); WBC 5.8 k/uL (3.8-10.6)
[2017-05-18 08:40] LABS: Anion Gap 10 mmol/L; Blood Urea Nitrogen 7 mg/dL (9-20); Calcium 8.2 mg/dL (8.4-10.2); Carbon Dioxide 27 mmol/L (22-30); Chloride 101 mmol/L (98-107); Glucose 104 mg/dL (74-99); Sodium 138 mmol/L (137-145)
[2017-05-18] MEDS: IPRATROPIUM-ALBUTEROL 3 ML NEB INHALATION PRN ×2 (09:06→13:46)
--- NOTE | 2017-05-18 10:42 | P.PN ---
Subjective Patient resting in bed without complaint of tolerating tube feeding. Requesting advancement of his diet to full liquid able to swallow with aspirating Objective - Vital Signs Vital signs: Vital Signs Temp 96.8 F L 05/18/17 06:28 Pulse 66 05/18/17 09:20 Resp 18 05/18/17 06:28 BP 123/67 05/18/17 06:28 Pulse Ox 93 L 05/18/17 09:10 Intake & Output 05/17/17 05/18/17 05/18/17 18:59 06:59 18:59 Intake Total 60 410 80 Balance 60 410 80 Weight 66.2 kg 68 kg Intake: Oral 350 Tube Feeding 60 60 80 Other: Voiding Method Toilet Toilet Urinal Urinal # Voids 1 - Constitutional General appearance: Present: obese - EENT Eyes: Present: PERRLA Ears: bilateral: normal - Neck Neck: Present: normal ROM - Cardiovascular Rhythm: regular - Gastrointestinal General gastrointestinal: Present: normal bowel sounds, soft - Integumentary Integumentary: Present: normal - Neurologic Neurologic: Present: CNII-XII intact - Musculoskeletal Musculoskeletal: Present: generalized weakness - Psychiatric Psychiatric: Present: A&O x's 3, intact judgment & insight - Labs CBC & Chem 7: 05/18/17 07:30 05/18/17 07:30 Labs: Abnormal Lab Results - Last 24 Hours (Table) 05/17/17 05/17/17 05/17/17 Range/Units 11:35 17:54 21:10 Lymphocytes # (1.0-4.8) k/uL BUN (9-20) mg/dL Creatinine (0.66-1.25) mg/dL Glucose (74-99) mg/dL POC Glucose (mg/dL) 138 H 200 H 106 H (75-99) mg/dL Calcium (8.4-10.2) mg/dL 05/18/17 05/18/17 05/18/17 Range/Units 00:24 07:30 07:30 Lymphocytes # 0.6 L (1.0-4.8) k/uL BUN 7 L (9-20) mg/dL Creatinine 0.63 L (0.66-1.25) mg/dL Glucose 104 H (74-99) mg/dL POC Glucose (mg/dL) 106 H (75-99) mg/dL Calcium 8.2 L (8.4-10.2) mg/dL Assessment and Plan Plan: Assessment 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
[2017-05-18 11:48] LABS: Glucose,Whole Blood 116 mg/dL (75-99)
[2017-05-18 17:20] LABS: Glucose,Whole Blood 122 mg/dL (75-99)
[2017-05-18 21:10] LABS: Glucose,Whole Blood 114 mg/dL (75-99)
[2017-05-18] MEDS: ATORVASTATIN 80 MG TAB PO SCH (21:10)
[2017-05-19] MEDS: MORPHINE SULFATE 4 MG/ML SYRINGE IVP PRN ×3 (02:52→11:46)
[2017-05-19] MEDS: DEXTROSE 5%-0.9% NACL 1,000 ML IV SCH (05:04)
[2017-05-19 06:01] LABS: Glucose,Whole Blood 166 mg/dL (75-99)
[2017-05-19] MEDS: FUROSEMIDE 40 MG TAB PO SCH (07:52)
[2017-05-19] MEDS: HEPARIN SODIUM,PORCINE 5,000 UNIT/ML 1 ML VIAL SQ SCH (07:52)
[2017-05-19] MEDS: INSULIN ASPART 100 UNIT/ML 1 ML 10 ML VIAL SQ SCH ×2 (07:52→12:24)
[2017-05-19] MEDS: cefTRIAXone IN SWFI 2,000 MG/20 ML SYRINGE IVP SCH (07:53)
[2017-05-19] MEDS: NYSTATIN 100,000 UNIT/ML SUSP 500,000 UNIT/5 ML CUP PO SCH ×2 (07:53→11:50)
[2017-05-19] MEDS: METOPROLOL TARTRATE 50 MG TAB PO SCH (07:54)
[2017-05-19] MEDS: metFORMIN 500 MG TAB PO SCH (07:54)
[2017-05-19] MEDS: SPIRONOLACTONE 25 MG TAB PO SCH (07:55)
[2017-05-19 08:15] VITALS: BP 128/58; PULSE 75; RESP 16; TEMP 98.8
[2017-05-19] MEDS ORDERED: PANTOPRAZOLE SODIUM 40 MG GRANULE PKT PO SCH (09:00)
[2017-05-19 09:18] LABS: Basophils % (A) 1 %; Eosinophils # (A) 0.2 k/uL (0-0.7); Eosinophils % (A) 3 %; HCT 45.8 % (39.0-53.0); HGB 14.3 gm/dL (13.0-17.5); Lymphocytes # (A) 0.6 k/uL (1.0-4.8); Lymphocytes % (A) 10 %; MCH 29.1 pg (25.0-35.0); MCHC 31.3 g/dL (31.0-37.0); Mean Platelet Volume 7.7; Monocytes # (A) 0.6 k/uL (0-1.0); Monocytes % (A) 9 %; Neutrophils # (A) 4.6 k/uL (1.3-7.7); Neutrophils % (A) 76 %; Platelet Count 236 k/uL (150-450); RBC 4.92 m/uL (4.30-5.90); RDW 13.8 % (11.5-15.5); WBC 6.1 k/uL (3.8-10.6)
[2017-05-19 09:41] LABS: Anion Gap 8 mmol/L; Blood Urea Nitrogen 12 mg/dL (9-20); Calcium 8.5 mg/dL (8.4-10.2); Carbon Dioxide 35 mmol/L (22-30); Chloride 96 mmol/L (98-107); Glucose 72 mg/dL (74-99); Potassium 3.8 mmol/L (3.5-5.1); Sodium 139 mmol/L (137-145)
--- NOTE | 2017-05-19 11:04 | P.DS ---
Providers Date of admission: 05/13/17 20:43 Expected date of discharge: 05/19/17 Attending physician: Andrews Escobar Consults: 05/13/17 20:35 Consult Physician Stat Consulting Provider: Kassandra Barrios Consult Reason/Comments: Chest pain at the history of coronary artery disease and [address] Do you want consulting provider notified?: Yes Primary care physician: Andrews Escobar Hospital Course: 62-year-old male was admitted for complaints of dysphagia secondary to malignancy radiation. Had PEG tube inserted for nutrition. The patient continues with laryngitis. Able to only swallow clear liquids. Patient also complaints of chest pain was cleared by cardiology as atypical chest pain. Patient has been tolerating tube feedings will have assistance with tube feedings at home from visiting Assessment dysphagia secondary laryngeal malignancy radiation Post percutaneous endoscopic S durotomy tube placement Chest pain atypical History of congestive heart failure with chronic systolic dysfunction History of atrial fibrillation chronic persistent Diabetes type 2 History of CVA/TIA Coronary disease with myocardial infarction History of pulmonary embolus history of DVT Umbilical hernia History of anxiety Recurrent ascites with paracentesis every 2-3 weeks Plan Will have assistance with feeding tube from the home visiting nurse Patient to follow-up with family physician Plan - Discharge Summary Discharge Rx Participant: No New Discharge Prescriptions: Continue Hydrocodone/Acetaminophen [[place] 10-325] 1 tab PO Q4H PRN PRN Reason: Pain Ipratropium/Albuterol Sulfate [Combivent Respimat Inhaler] 1 puff INHALATION RT-TID PRN PRN Reason: Shortness Of Breath Metoprolol Tartrate [Lopressor] 50 mg PO BID #60 tab Atorvastatin [Lipitor] 80 mg PO HS Omeprazole [PriLOSEC] 20 mg PO BID #60 capsule. Cyclobenzaprine [Flexeril] 10 mg PO TID PRN PRN Reason: Pain Albuterol Inhaler [Ventolin Hfa Inhaler] 1 puff INHALATION RT-Q6H PRN PRN Reason: Shortness Of Breath Spironolactone [Aldactone] 25 mg PO BID Furosemide [Lasix] 40 mg PO BID #60 tablet metFORMIN HCL [Glucophage] 500 mg PO BID metFORMIN HCL 1,000 mg PO HS Nystatin 100,000 Unit/ml Susp [Mycostatin Oral Susp] 4 ml PO QID Discontinued Enoxaparin [Lovenox] 80 mg SQ Q12H #30 syringe Discharge Medication List Hydrocodone/Acetaminophen [[place] 10-325] 1 tab PO Q4H PRN 02/01/14 [History] Ipratropium/Albuterol Sulfate [Combivent Respimat Inhaler] 1 puff INHALATION RT- TID PRN 02/01/14 [History] Metoprolol Tartrate [Lopressor] 50 mg PO BID #60 tab 02/07/14 [Rx] Atorvastatin [Lipitor] 80 mg PO HS 04/13/14 [History] Omeprazole [PriLOSEC] 20 mg PO BID #60 capsule. 04/27/14 [Rx] Cyclobenzaprine [Flexeril] 10 mg PO TID PRN 05/10/14 [History] Albuterol Inhaler [Ventolin Hfa Inhaler] 1 puff INHALATION RT-Q6H PRN 10/27/15 [ History] Spironolactone [Aldactone] 25 mg PO BID 01/24/16 [History] Furosemide [Lasix] 40 mg PO BID #60 tablet 09/04/16 [Rx] metFORMIN HCL 1,000 mg PO HS 01/14/17 [History] metFORMIN HCL [Glucophage] 500 mg PO BID 01/14/17 [History] Nystatin 100,000 Unit/ml Susp [Mycostatin Oral Susp] 4 ml PO QID 04/23/17 [ History] Follow up Appointment(s)/Referral(s): Andrews Escobar MD [Primary Care Provider] - 1-2 days [facility], [NON-STAFF] - 1 Week [facility], [REFERRING] - 1 Week Patient Instructions/Handouts: How to Use and Care for Your PEG Tube (DC), Pneumonia (DC) Activity/Diet/Wound Care/Special Instructions: Continuous tube feed of Jevity 1.5 at at 64cc/hr, 50ml water flush every 4 hours. Tube feed and supplies through [facility] [phone]
[2017-05-19 12:47] LABS: Glucose,Whole Blood 100 mg/dL (75-99)
--- NOTE | 2017-05-20 12:39 | CDI ---
Last Revision, February 2017 Documentation Clarification Form Date: 05/20/2017 12:17:00 PM From: Negra Joel China Zhou, Neighborhood Planner between 8:30 am & 5 pm Erwin Admit Date: 05/13/2017 8:43:00 PM Patient Name: Silvino Monet Visit Number: [id number] Discharge Date: 05/19/17 ATTENTION: The Clinical Documentation Specialists (CDI) and [facility] Coding Staff appreciate your assistance in clarifying documentation. Please respond to the clarification below the line at the bottom and electronically sign. The CDI & [facility] Coding staff will review the response and follow-up if needed. Please note: Queries are made part of the Legal Health Record. If you have any questions, please contact the author of this message via ITS. Dr. Andrews Escobar/Lou Roa Malnutrition has been documented in 05/[address] 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 Patient with dysphagia, s/p radiation therapy for laryngeal cancer. Approximate 10 kg weight loss x 3 months. Albumin: 3.9; Pre albumin: 12.0; Total Protein:6.2; Current BMI: 23.5 Treatment: PEG placed 05/15, tube feedings started 05/17 Dietary Consult: Yes In your professional opinion, can you please clarify if these findings signify one of the following conditions? Mild Protein-Calorie Malnutrition Moderate Protein-Calorie Malnutrition Severe Protein-Calorie Malnutrition Malnutrition Other condition, please specify Unable to determine Please continue to document in your progress notes and discharge summary in order to capture severity of illness and risk of mortality. Include clinical findings that support your diagnosis. MTDD
--- NOTE | 2017-05-24 08:12 | P.PN ---
Progress Note - Text Addendum assessment Moderate calorie deficient malnutrition
== END 2017-05-19 13:30 | disposition home health service (06) | DRG 391 ==
LOC: EC 18:33 → 6SEL 20:43 → 4MS4W 05-17 18:17
PROVIDERS: ADMIT Family Medicine; ATTEND Family Medicine
PROC: 0DJ08ZZ Inspection of Upper Intestinal Tract, Via Natural or Artificial Opening Endoscopic (ICD-10-PCS; 2017-05-15)
PROC: 0DH63UZ Insertion of Feeding Device into Stomach, Percutaneous Approach (ICD-10-PCS; principal; 2017-05-15 09:00)
PROC: 3E0G76Z Introduction of Nutritional Substance into Upper GI, Via Natural or Artificial Opening (ICD-10-PCS; 2017-05-17)
DX: R13.10 Dysphagia, unspecified (principal); I50.23 Acute on chronic systolic (congestive) heart failure; E44.0 Moderate protein-calorie malnutrition; I27.29 Other secondary pulmonary hypertension; E11.51 Type 2 diabetes mellitus with diabetic peripheral angiopathy without gangrene; R18.8 Other ascites; I71.2 Thoracic aortic aneurysm, without rupture; I48.1 Persistent atrial fibrillation; C32.9 Malignant neoplasm of larynx, unspecified; I11.0 Hypertensive heart disease with heart failure; I25.2 Old myocardial infarction; E78.5 Hyperlipidemia, unspecified; E87.6 Hypokalemia; J04.0 Acute laryngitis; J44.9 Chronic obstructive pulmonary disease, unspecified; I25.5 Ischemic cardiomyopathy; I87.2 Venous insufficiency (chronic) (peripheral); K43.9 Ventral hernia without obstruction or gangrene; F41.9 Anxiety disorder, unspecified; K42.9 Umbilical hernia without obstruction or gangrene; R62.7 Adult failure to thrive; I25.10 Atherosclerotic heart disease of native coronary artery without angina pectoris; M19.91 Primary osteoarthritis, unspecified site; N42.9 Disorder of prostate, unspecified; F17.200 Nicotine dependence, unspecified, uncomplicated; I69.334 Monoplegia of upper limb following cerebral infarction affecting left non-dominant side; Z86.711 Personal history of pulmonary embolism; Z79.01 Long term (current) use of anticoagulants; Z79.84 Long term (current) use of oral hypoglycemic drugs; Z79.899 Other long term (current) drug therapy; Z95.5 Presence of coronary angioplasty implant and graft; Z92.3 Personal history of irradiation; Z86.718 Personal history of other venous thrombosis and embolism; Z88.5 Allergy status to narcotic agent; Y84.2 Radiological procedure and radiotherapy as the cause of abnormal reaction of the patient, or of later complication, without mention of misadventure at the time of the procedure; Y92.009 Unspecified place in unspecified non-institutional (private) residence as the place of occurrence of the external cause
CPT/HCPCS: 36415; 43246; 71046; 71275; 74230; 80048; 80053; 82550; 82553; 83036; 83735; 84132; 84134; 84484; 85025; 85379; 85610; 85730; 93005; 94640; 94760; 96361; 96374; 96375; 96376; 99285

== ENCOUNTER 2017-06-04 08:43 | Day surgery (SDC) | payer OTHER ==
[2017-06-04 09:59] LABS: Mean Platelet Volume 7.8; Platelet Count 257 k/uL (150-450)
[2017-06-04 10:03] VITALS: TEMP 98.1
[2017-06-04 10:16] LABS: INR 1.1 (<1.2); Prothrombin Time 10.8 sec (9.0-12.0)
[2017-06-04 12:58] VITALS: RESP 16
[2017-06-04 13:13] VITALS: BP 125/73
--- NOTE | 2017-06-04 13:30 | US ---
Therapeutic paracentesis. DATE OF EXAM: 06/04/2017 CLINICAL HISTORY: Ascites The procedure was discussed with the patient. The risks, complications, benefits, and alternatives we re discussed and any questions were answered. Informed consent was obtained. The patient was placed s upine on the ultrasound table and prepped and draped in the usual sterile fashion. All elements of maximal barrier technique were utilized. Under ultrasound guidance, access into the right lower quadrant was obtained, via the paracentesis catheter system and direct ultrasound guidanc e. Approximately 6.6 liters of straw-colored fluid was removed. The patient was stable throughout the pr ocedure and remained stable upon discharge from Department of Radiology. IMPRESSION: Successful therapeutic paracentesis under ultrasound guidance.
--- NOTE | 2017-06-04 14:03 | US ---
EXAMINATION TYPE: US abdomen limited DATE OF EXAM: 06/04/2017 COMPARISON: NONE CLINICAL HISTORY: post para, assess for any bleeding. No indication of bleeding. Appears wnl. There is no evidence of free fluid. IMPRESSION: No evidence of free fluid within the abdomen.
[2017-06-04 14:13] VITALS: PULSE 68
== END 2017-06-04 14:13 | disposition home or self-care (01) ==
LOC: RADPROMAIN 08:43
PROVIDERS: ATTEND Family Medicine
DX: R18.8 Other ascites (principal)
CPT/HCPCS: 36415; 49083; 76705; 82565; 82947; 85049; 85610

== ENCOUNTER → 2017-06-05 | Outpatient (CLI) | payer OTHER ==
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
== END | disposition home or self-care (01) ==
LOC: RADPETMAIN 09:22
PROVIDERS: ATTEND Radiology Radiation Oncology
DX: C32.1 Malignant neoplasm of supraglottis (principal)
CPT/HCPCS: 78815; A9552

== ENCOUNTER 2017-06-25 08:43 | Day surgery (SDC) | payer OTHER ==
[2017-06-25 09:15] VITALS: RESP 20; TEMP 97.8
[2017-06-25 09:21] LABS: Mean Platelet Volume 7.5; Platelet Count 232 k/uL (150-450)
[2017-06-25 09:25] LABS: INR 1.2 (<1.2); Prothrombin Time 11.6 sec (9.0-12.0)
[2017-06-25] MEDS: ALBUMIN HUMAN 25% 50 ML in EMPTY BAG 1 BAG IVPB SCH ×3 (11:01→11:49)
[2017-06-25 12:04] VITALS: BP 138/83; PULSE 80
--- NOTE | 2017-06-25 13:26 | US ---
EXAMINATION TYPE: US paracentesis abd w/image DATE OF EXAM: 06/25/2017 COMPARISON: NONE HISTORY: Ascites. PROCEDURE: Maximal barrier technique was utilized. The skin overlying a suitable pocket of fluid was localized with ultrasound and the overlying skin was prepped and draped. Ultrasound was utilized with sterile technique. Lidocaine was used for local anesthesia and a skin gilbert made with a scalpel. Catheter was advanced under direct ultrasound guidance into a suitable pocket of fluid and approximately 8.6 liter s of serous fluid were removed. Catheter was withdrawn and hemostasis achieved. There is no immedia te complication; the patient is discharged in stable condition. IMPRESSION: STATUS POST ULTRASOUND GUIDED PARACENTESIS FOR PALLIATION OF ASCITES. THIS PROCEDURE WA S PERFORMED BY THE UNDERSIGNED.
== END 2017-06-25 12:14 | disposition home or self-care (01) ==
LOC: RADPROMAIN 08:43
PROVIDERS: ATTEND Family Medicine
DX: R18.8 Other ascites (principal)
CPT/HCPCS: 82565; 85049; 85610; 96365; 36415; 49083; P9047

== ENCOUNTER 2017-07-09 11:58 | Day surgery (SDC) | payer OTHER ==
[2017-07-09 12:32] VITALS: RESP 20; TEMP 97.8
[2017-07-09 12:34] LABS: Mean Platelet Volume 7.7; Platelet Count 228 k/uL (150-450)
[2017-07-09 12:39] LABS: INR 1.2 (<1.2); Prothrombin Time 11.3 sec (9.0-12.0)
[2017-07-09] MEDS: ALBUMIN HUMAN 25% 50 ML in EMPTY BAG 1 BAG IVPB SCH ×2 (14:43→15:02)
[2017-07-09 14:58] VITALS: BP 138/78; PULSE 78
--- NOTE | 2017-07-12 08:37 | US ---
Therapeutic paracentesis. DATE OF EXAM: 07/09/2017 CLINICAL HISTORY: Ascites The procedure was discussed with the patient. The risks, complications, benefits, and alternatives we re discussed and any questions were answered. Informed consent was obtained. The patient was placed s upine on the ultrasound table and prepped and draped in the usual sterile fashion. All elements of maximal barrier technique were utilized. Under ultrasound guidance, access into the right lower quadrant was obtained, via the paracentesis catheter system and direct ultrasound guidanc e. Approximately 8 liters of straw-colored fluid was removed. The patient was stable throughout the proc edure and remained stable upon discharge from Department of Radiology. IMPRESSION: Successful therapeutic paracentesis under ultrasound guidance.
== END 2017-07-09 14:35 | disposition home or self-care (01) ==
LOC: RADPROMAIN 11:58
PROVIDERS: ATTEND Family Medicine
DX: R18.8 Other ascites (principal)
CPT/HCPCS: 36415; 49083; 82565; 85049; 85610

== ENCOUNTER 2017-07-20 08:27 | Day surgery (SDC) | payer OTHER ==
[2017-07-16 13:50] VITALS: BMI 28.1
[~2017-07-20 08:27] MED LIST changes: +LACTATED RINGERS 1,000 ML IV SCH; -SODIUM BICARB 4% 5 ML VIAL (0.48 MEQ/ML) MISCELLANE PRN
[2017-07-20 08:58] VITALS: RESP 18; TEMP 98
[2017-07-20] MEDS ORDERED: LIDOCAINE 1% 20 ML VIAL (10MG/ML) FOR IV START INTRADERMA ONE (08:59)
[2017-07-20] MEDS ORDERED: LACTATED RINGERS 1,000 ML IV ONE (08:59)
[2017-07-20 09:08] LABS: Glucose,Whole Blood 79 mg/dL (75-99)
[2017-07-20] MEDS ORDERED: fentaNYL (PF) 50 MCG/ML 2 ML AMP ONE (09:53)
[2017-07-20] MEDS ORDERED: MIDAZOLAM 2 MG/2 ML VIAL ONE (09:53)
[2017-07-20] MEDS ORDERED: LIDOCAINE 1% INJ 10MG/ML (20 ML MDV) ONE (09:53)
[2017-07-20] MEDS ORDERED: PROPOFOL 10 MG/ML 20 ML VIAL IV ONE (09:53)
--- NOTE | 2017-07-20 10:30 | P.PCN ---
Date of Procedure: 07/20/17 Procedure(s) Performed: Procedure: Gastrostomy feeding tube removal. Preoperative diagnosis: History of dysphagia requiring enteral feeding through a gastrostomy feeding tube. Postoperative diagnosis: Successful removal of the feeding tube with gentle traction.. Preparation and sedation: Were provided by anesthesia. 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 The patient has done well and is now able to meet his nutritional needs by spontaneous oral intake and is scheduled to have his gastrostomy feeding tube removed with sedation. Procedure: With the patient in the supine position and after informed consent and adequate sedation, I was able to remove the gastrostomy feeding tube with gentle traction and it came out intact. The patient was prepared for possible upper endoscopy if needed. There was no indication to proceed with an upper endoscopy today. The site of the feeding tube did not appear infected and there was no bleeding. The site was cleansed and a pressure dressing applied. The patient tolerated the procedure well. Plan: The patient was reassured. Will keep nothing by mouth for 2-4 hours then he can have a liquid meal then advance diet as tolerated.
[2017-07-20 10:55] VITALS: BP 123/76; PULSE 89
[2017-07-20 11:04] LABS: Glucose,Whole Blood 82 mg/dL (75-99)
== END 2017-07-20 11:33 | disposition home or self-care (01) ==
LOC: ORWHC2ENDO 08:27
DX: Z43.1 Encounter for attention to gastrostomy (principal); Z85.21 Personal history of malignant neoplasm of larynx; Z92.3 Personal history of irradiation; I25.10 Atherosclerotic heart disease of native coronary artery without angina pectoris; I50.9 Heart failure, unspecified; I73.9 Peripheral vascular disease, unspecified; E11.9 Type 2 diabetes mellitus without complications; K21.9 Gastro-esophageal reflux disease without esophagitis; R18.8 Other ascites; I25.2 Old myocardial infarction; Z95.5 Presence of coronary angioplasty implant and graft; Z86.711 Personal history of pulmonary embolism; Z86.73 Personal history of transient ischemic attack (TIA), and cerebral infarction without residual deficits; Z79.4 Long term (current) use of insulin; Z79.891 Long term (current) use of opiate analgesic; Z79.899 Other long term (current) drug therapy; Z79.01 Long term (current) use of anticoagulants; Z88.6 Allergy status to analgesic agent; Z88.5 Allergy status to narcotic agent
CPT/HCPCS: 44799; J2250; J2001; J3010; J2704

== ENCOUNTER 2017-07-23 08:32 | Day surgery (SDC) | payer OTHER ==
[2017-07-23 09:00] LABS: Mean Platelet Volume 8.2; Platelet Count 223 k/uL (150-450)
[2017-07-23 09:07] LABS: INR 1.2 (<1.2); Prothrombin Time 11.4 sec (9.0-12.0)
[2017-07-23 09:11] VITALS: TEMP 98
[2017-07-23] MEDS ORDERED: LIDOCAINE (PF) 10 MG/ML 5ML AMP SQ STA (09:42)
[2017-07-23] MEDS ORDERED: LIDOCAINE 1% (PF) 10 MG/ML (30 ML SDV) SQ STA (09:47)
[2017-07-23] MEDS: ALBUMIN HUMAN 25% 50 ML in EMPTY BAG 1 BAG IVPB SCH ×4 (10:21→10:58)
[2017-07-23 10:25] VITALS: RESP 14
[2017-07-23 10:31] LABS: Glucose,Whole Blood 86 mg/dL (75-99)
[2017-07-23 10:48] VITALS: BP 125/78; PULSE 85
--- NOTE | 2017-07-23 11:33 | US ---
Therapeutic paracentesis. DATE OF EXAM: 07/23/2017 CLINICAL HISTORY: Ascites The procedure was discussed with the patient. The risks, complications, benefits, and alternatives we re discussed and any questions were answered. Informed consent was obtained. The patient was placed s upine on the ultrasound table and prepped and draped in the usual sterile fashion. All elements of maximal barrier technique were utilized. Under ultrasound guidance, access into the right lower quadrant was obtained, via the paracentesis catheter system and direct ultrasound guidanc e. Approximately 8.6 liters of straw-colored fluid was removed. The patient was stable throughout the pr ocedure and remained stable upon discharge from Department of Radiology. IMPRESSION: Successful therapeutic paracentesis under ultrasound guidance.
== END 2017-07-23 11:21 | disposition home or self-care (01) ==
LOC: RADPROMAIN 08:32
PROVIDERS: ATTEND Family Medicine
DX: R18.8 Other ascites (principal)
CPT/HCPCS: 82565; 85049; 85610; 96365; 49083; J2001; P9047

== ENCOUNTER 2017-08-06 11:51 | Day surgery (SDC) | payer OTHER ==
[2017-08-06] MEDS ORDERED: LIDOCAINE 1% INJ 10MG/ML (20 ML MDV) SQ ONE (12:10)
[2017-08-06 12:27] VITALS: RESP 20; TEMP 97.8
[2017-08-06 12:28] LABS: Mean Platelet Volume 7.2; Platelet Count 221 k/uL (150-450)
[2017-08-06 12:34] LABS: INR 1.2 (<1.2); Prothrombin Time 11.6 sec (9.0-12.0)
[2017-08-06] MEDS: ALBUMIN HUMAN 25% 50 ML in EMPTY BAG 1 BAG IVPB SCH ×4 (13:41→14:31)
[2017-08-06 14:51] VITALS: BP 131/77; PULSE 87
--- NOTE | 2017-08-10 08:37 | US ---
EXAMINATION TYPE: US paracentesis abd w/image DATE OF EXAM: 08/06/2017 COMPARISON: NONE HISTORY: Ascites. PROCEDURE: Maximal barrier technique was utilized. The skin overlying a suitable pocket of fluid was localized with ultrasound and the overlying skin was prepped and draped. Ultrasound was utilized with sterile technique. Lidocaine was used for local anesthesia and a skin gilbert made with a scalpel. Catheter was advanced under direct ultrasound guidance into a suitable pocket of fluid and approximately 8.8 liter s of serous fluid were removed. Catheter was withdrawn and hemostasis achieved. There is no immedia te complication; the patient is discharged in stable condition. IMPRESSION: STATUS POST ULTRASOUND GUIDED PARACENTESIS FOR PALLIATION OF ASCITES. THIS PROCEDURE WA S PERFORMED BY THE UNDERSIGNED.
== END 2017-08-06 15:00 | disposition home or self-care (01) ==
LOC: RADPROMAIN 11:51
PROVIDERS: ATTEND Family Medicine
DX: R18.8 Other ascites (principal)
CPT/HCPCS: 82565; 85049; 85610; 96365; 36415; 49083; J2001; P9047

== ENCOUNTER 2017-08-13 11:32 | Day surgery (SDC) | payer OTHER ==
[2017-08-13 12:52] LABS: Mean Platelet Volume 7.5; Platelet Count 211 k/uL (150-450)
[2017-08-13 12:55] LABS: Glucose 101 mg/dL (74-99)
[2017-08-13 12:57] LABS: INR 1.1 (<1.2); Prothrombin Time 10.9 sec (9.0-12.0)
[2017-08-13 13:16] VITALS: RESP 16; TEMP 97.9
[2017-08-13] MEDS ORDERED: LIDOCAINE 1% INJ 10MG/ML (20 ML MDV) SQ ONE (13:32)
--- NOTE | 2017-08-13 15:05 | US ---
EXAMINATION TYPE: US paracentesis abd w/image DATE OF EXAM: 08/13/2017 COMPARISON: NONE HISTORY: Ascites. PROCEDURE: Maximal barrier technique was utilized. The skin overlying a suitable pocket of fluid was localized with ultrasound and the overlying skin was prepped and draped. Ultrasound was utilized with sterile technique. Lidocaine was used for local anesthesia and a skin gilbert made with a scalpel. Catheter was advanced under direct ultrasound guidance into a suitable pocket of fluid and approximately 5.7 liter s of serous fluid were removed. Catheter was withdrawn and hemostasis achieved. There is no immedia te complication; the patient is discharged in stable condition. IMPRESSION: STATUS POST ULTRASOUND GUIDED PARACENTESIS FOR PALLIATION OF ASCITES. THIS PROCEDURE WA S PERFORMED BY THE UNDERSIGNED.
[2017-08-13 15:55] VITALS: BP 122/81; PULSE 84
== END 2017-08-13 15:00 | disposition home or self-care (01) ==
LOC: RADPROMAIN 11:32
PROVIDERS: ATTEND Family Medicine
DX: R18.8 Other ascites (principal)
CPT/HCPCS: 82565; 82947; 85049; 85610; 36415; 49083; J2001

== ENCOUNTER 2017-08-20 11:43 | Day surgery (SDC) | payer OTHER ==
[2017-08-20 12:19] VITALS: RESP 16; TEMP 97.7
[2017-08-20 12:31] LABS: Mean Platelet Volume 7.1; Platelet Count 223 k/uL (150-450)
[2017-08-20 12:33] LABS: Glucose 135 mg/dL (74-99)
[2017-08-20 12:34] LABS: INR 1.2 (<1.2); Prothrombin Time 11.2 sec (9.0-12.0)
[2017-08-20] MEDS: ALBUMIN HUMAN 25% 50 ML in EMPTY BAG 1 BAG IVPB SCH ×3 (13:08→14:15)
[2017-08-20] MEDS ORDERED: LIDOCAINE 1% INJ 10MG/ML (20 ML MDV) SQ ONE (13:11)
--- NOTE | 2017-08-20 13:56 | US ---
Therapeutic paracentesis. DATE OF EXAM: 08/20/2017 CLINICAL HISTORY: Ascites The procedure was discussed with the patient. The risks, complications, benefits, and alternatives we re discussed and any questions were answered. Informed consent was obtained. The patient was placed s upine on the ultrasound table and prepped and draped in the usual sterile fashion. All elements of maximal barrier technique were utilized. Under ultrasound guidance, access into the right lower quadrant was obtained, via the paracentesis catheter system and direct ultrasound guidanc e. Approximately 3.5 liters of straw-colored fluid was removed. The patient was stable throughout the pr ocedure and remained stable upon discharge from Department of Radiology. IMPRESSION: Successful therapeutic paracentesis under ultrasound guidance.
[2017-08-20 14:09] VITALS: BP 106/76; PULSE 88
== END 2017-08-20 13:55 | disposition home or self-care (01) ==
LOC: RADPROMAIN 11:43
PROVIDERS: ATTEND Family Medicine
DX: R18.8 Other ascites (principal)
CPT/HCPCS: 82565; 82947; 85049; 85610; 96365; 36415; 49083; J2001; P9047

== ENCOUNTER 2017-09-03 11:45 | Day surgery (SDC) | payer OTHER ==
[2017-09-03 12:36] LABS: Mean Platelet Volume 7.7; Platelet Count 199 k/uL (150-450)
[2017-09-03 12:57] LABS: INR 1.3 (<1.2)
[2017-09-03 13:15] VITALS: RESP 20; TEMP 98.1
[2017-09-03] MEDS: ALBUMIN HUMAN 25% 50 ML in EMPTY BAG 1 BAG IVPB SCH ×3 (14:45→15:15)
[2017-09-03 15:32] VITALS: BP 124/78; PULSE 99
--- NOTE | 2017-09-03 15:48 | US ---
Therapeutic paracentesis. DATE OF EXAM: 09/03/2017 CLINICAL HISTORY: Ascites The procedure was discussed with the patient. The risks, complications, benefits, and alternatives we re discussed and any questions were answered. Informed consent was obtained. The patient was placed s upine on the ultrasound table and prepped and draped in the usual sterile fashion. All elements of maximal barrier technique were utilized. Under ultrasound guidance, access into the right lower quadrant was obtained, via the paracentesis catheter system and direct ultrasound guidanc e. Approximately 9 liters of straw-colored fluid was removed. The patient was stable throughout the proc edure and remained stable upon discharge from Department of Radiology. IMPRESSION: Successful therapeutic paracentesis under ultrasound guidance.
== END 2017-09-03 15:36 | disposition home or self-care (01) ==
LOC: RADPROMAIN 11:45
PROVIDERS: ATTEND Family Medicine
DX: R18.8 Other ascites (principal)
CPT/HCPCS: 82947; 85049; 85610; 96365; 36415; 49083; P9047

== ENCOUNTER 2017-09-10 08:57 | Day surgery (SDC) | payer OTHER ==
[2017-09-10 09:24] LABS: Mean Platelet Volume 7.1; Platelet Count 244 k/uL (150-450)
[2017-09-10 09:26] VITALS: RESP 16; TEMP 98.3
[2017-09-10 09:33] LABS: INR 1.1 (<1.2); Prothrombin Time 10.9 sec (9.0-12.0)
[2017-09-10] MEDS: ALBUMIN HUMAN 25% 50 ML in EMPTY BAG 1 BAG IVPB SCH ×4 (10:44→11:35)
[2017-09-10 11:09] VITALS: BP 129/67; PULSE 98
--- NOTE | 2017-09-10 13:55 | US ---
EXAMINATION TYPE: US paracentesis abd w/image DATE OF EXAM: 09/10/2017 CLINICAL HISTORY: Recurrent ascites due to heart failure. The procedure was discussed with the patient. The risks, complications, benefits, and alternatives we re discussed and any questions were answered. Informed consent was obtained. The patient was placed s upine on the ultrasound table and prepped and draped in the usual sterile fashion. All elements of maximal barrier technique were utilized. Under ultrasound guidance, access into the right lower quadrant was obtained, via the paracentesis catheter system and direct ultrasound guidanc e. Approximately 5.5 liters of straw-colored fluid was removed. The patient was stable throughout the pr ocedure and remained stable upon discharge from Department of Radiology. IMPRESSION: Successful therapeutic paracentesis under ultrasound guidance.
== END 2017-09-10 11:20 | disposition home or self-care (01) ==
LOC: RADPROMAIN 08:57
PROVIDERS: ATTEND Family Medicine
DX: R18.8 Other ascites (principal); I50.9 Heart failure, unspecified
CPT/HCPCS: 85049; 85610; 96365; 49083; P9047

== ENCOUNTER 2017-09-20 12:04 | Day surgery (SDC) | payer OTHER ==
[2017-09-20 12:33] LABS: Mean Platelet Volume 7.9; Platelet Count 207 k/uL (150-450)
[2017-09-20 12:34] VITALS: RESP 16; TEMP 98.4
[2017-09-20 12:51] LABS: INR 1.2 (<1.2); Prothrombin Time 11.3 sec (9.0-12.0)
[2017-09-20 12:52] LABS: Glucose,Whole Blood 90 mg/dL (75-99)
[2017-09-20] MEDS: ALBUMIN HUMAN 25% 50 ML in EMPTY BAG 1 BAG IVPB SCH ×4 (13:46→14:35)
[2017-09-20 14:34] VITALS: BP 121/69; PULSE 88
--- NOTE | 2017-09-20 15:54 | US ---
EXAMINATION TYPE: US paracentesis abd w/image DATE OF EXAM: 09/20/2017 COMPARISON: NONE HISTORY: Ascites. PROCEDURE: Maximal barrier technique was utilized. The skin overlying a suitable pocket of fluid was localized with ultrasound and the overlying skin was prepped and draped. Ultrasound was utilized with sterile technique. Lidocaine was used for local anesthesia and a skin gilbert made with a scalpel. Catheter was advanced under direct ultrasound guidance into a suitable pocket of fluid and approximately 6.7 liter s of serous fluid were removed. Catheter was withdrawn and hemostasis achieved. There is no immedia te complication; the patient is discharged in stable condition. IMPRESSION: STATUS POST ULTRASOUND GUIDED PARACENTESIS FOR PALLIATION OF ASCITES. THIS PROCEDURE WA S PERFORMED BY THE UNDERSIGNED.
== END 2017-09-20 14:53 | disposition home or self-care (01) ==
LOC: RADPROMAIN 12:04
PROVIDERS: ATTEND Family Medicine
DX: R18.8 Other ascites (principal)
CPT/HCPCS: 85049; 85610; 49083; P9047

== ENCOUNTER 2017-09-24 17:18 | Inpatient (IN) | payer OTHER ==
[2017-09-24] MEDS ORDERED: ASPIRIN 81 MG PO STA (17:42)
[2017-09-24] MEDS ORDERED: NITROGLYCERIN OINT 1 INCH/GM PACKET TOPICAL STA (17:42)
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
[2017-09-24 18:04] LABS: INR 1.1 (<1.2); Partial Thromboplastin Time 24.4 sec (22.0-30.0); Prothrombin Time 10.7 sec (9.0-12.0)
[2017-09-24 18:05] LABS: ALT 27 U/L (21-72); AST 26 U/L (17-59); Albumin 3.1 g/dL (3.5-5.0); Alkaline Phosphatase 164 U/L (38-126); Anion Gap 8 mmol/L; Blood Urea Nitrogen 15 mg/dL (9-20); Calcium 8.8 mg/dL (8.4-10.2); Carbon Dioxide 27 mmol/L (22-30); Chloride 105 mmol/L (98-107); Glucose 121 mg/dL (74-99); Magnesium 1.8 mg/dL (1.6-2.3); Potassium 4.7 mmol/L (3.5-5.1); Sodium 140 mmol/L (137-145); Total Bilirubin 0.5 mg/dL (0.2-1.3); Total Protein 5.2 g/dL (6.3-8.2)
[2017-09-24 18:18] LABS: Basophils % (A) 1 %; Eosinophils # (A) 0.2 k/uL (0-0.7); Eosinophils % (A) 3 %; HCT 46.9 % (39.0-53.0); Lymphocytes # (A) 0.8 k/uL (1.0-4.8); Lymphocytes % (A) 12 %; MCHC 32.1 g/dL (31.0-37.0); MCV 93.5 fL (80.0-100.0); Mean Platelet Volume 7.2; Monocytes # (A) 0.5 k/uL (0-1.0); Monocytes % (A) 8 %; Neutrophils # (A) 4.9 k/uL (1.3-7.7); Neutrophils % (A) 75 %; Platelet Count 227 k/uL (150-450); RBC 5.02 m/uL (4.30-5.90); RDW 14.8 % (11.5-15.5); WBC 6.6 k/uL (3.8-10.6)
[2017-09-24 18:34] LABS: Creatine Kinase MB 5.7 ng/mL (0.0-2.4); Troponin I 0.037 ng/mL (0.000-0.034)
[2017-09-24] MEDS ORDERED: HEPARIN SODIUM,PORCINE 5,000 UNIT/ML 1 ML VIAL IV ONE (18:45)
[2017-09-24] MEDS ORDERED: HEPARIN SOD,PORK IN 0.45% NACL 25,000 UNIT in 0.45% NACL 1 500ML.BAG IV SCH (18:45)
[2017-09-24] MEDS ORDERED: NITROGLYCERIN SL TABS 0.4 MG TAB SUBLINGUAL PRN (18:49)
--- NOTE | 2017-09-24 18:51 | XR ---
EXAMINATION: XR chest 2V DATE AND TIME: 09/24/2017 6:17 PM ORDERING PROVIDER: Brandon Pruitt MD CLINICAL INDICATION: Chest Pain TECHNIQUE: PA and lateral COMPARISON: None. DESCRIPTION: There is mild obscuration of the pulmonary vasculature by a fine reticular pattern of in creased density bilaterally suggesting mild interstitial phase cardiogenic pulmonary edema. Cardiac s ilhouette is mild moderately enlarged, coronary calcifications and/or stents are noted. The lungs are otherwise negative. The pleural spaces are negative. The skeletal structures are intact without focal findings. The soft tissues are unremarkable. IMPRESSION: Radiographic evidence of mild interstitial phase cardiogenic pulmonary edema.
[2017-09-24] MEDS ORDERED: MORPHINE SULFATE 2 MG/ML SYRINGE IVP STA (18:53)
[2017-09-24 20:13] VITALS: BMI 28.1
[2017-09-24 20:57] LABS: Glucose,Whole Blood 94 mg/dL (75-99)
[2017-09-24] MEDS ORDERED: CYCLOBENZAPRINE 10 MG TAB PO PRN (20:57)
[2017-09-24] MEDS ORDERED: ALBUTEROL NEBULIZED 2.5 MG/3 ML INHALATION PRN (20:57)
[2017-09-24] MEDS: ATORVASTATIN 80 MG TAB PO SCH (21:54)
[2017-09-24] MEDS: metFORMIN 500 MG TAB PO SCH (21:55)
[2017-09-24] MEDS: ENOXAPARIN 80 MG/0.8 ML SYRINGE SQ SCH (21:55)
[2017-09-24] MEDS: METOPROLOL TARTRATE 50 MG TAB PO SCH (21:55)
[2017-09-24] MEDS: SPIRONOLACTONE 25 MG TAB PO SCH (21:55)
[2017-09-24] MEDS: MORPHINE SULFATE 2 MG/ML SYRINGE IVP PRN (22:06)
[2017-09-25 00:57] LABS: Creatine Kinase MB 4.9 ng/mL (0.0-2.4); Troponin I 0.09 ng/mL (0.000-0.034)
[2017-09-25] MEDS: NITROGLYCERIN OINT 1 INCH/GM PACKET TOPICAL SCH ×2 (01:31→06:39)
[2017-09-25] MEDS: MORPHINE SULFATE 2 MG/ML SYRINGE IVP PRN ×5 (03:49→21:13)
[2017-09-25 06:22] LABS: Cholesterol 158 mg/dL (<200); HDL Cholesterol 42 mg/dL (40-60); LDL Cholesterol,Calculated 102 mg/dL (0-99); Triglycerides 72 mg/dL (<150)
[2017-09-25] MEDS: PANTOPRAZOLE 40 MG TABLET PO SCH (06:39)
[2017-09-25] MEDS: metFORMIN 500 MG TAB PO SCH ×3 (06:39→21:20)
[2017-09-25 06:56] LABS: Creatine Kinase MB 4.3 ng/mL (0.0-2.4)
[2017-09-25 06:57] LABS: Troponin I 0.098 ng/mL (0.000-0.034)
[2017-09-25] MEDS: ASPIRIN 325 MG TAB PO SCH (08:21)
[2017-09-25] MEDS: METOPROLOL TARTRATE 50 MG TAB PO SCH ×2 (08:22→21:20)
[2017-09-25] MEDS: SPIRONOLACTONE 25 MG TAB PO SCH ×2 (08:22→21:20)
[2017-09-25] MEDS ORDERED: FUROSEMIDE 40 MG TAB PO SCH (09:00)
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
[2017-09-25 11:56] LABS: Glucose,Whole Blood 95 mg/dL (75-99)
[2017-09-25] MEDS: ALBUTEROL NEBULIZED 2.5 MG/3 ML INHALATION PRN ×3 (12:19→21:20)
[2017-09-25] MEDS: ENOXAPARIN 80 MG/0.8 ML SYRINGE SQ SCH ×2 (12:20→21:20)
[2017-09-25] MEDS: NITROGLYCERIN-D5W PMX 50 MG in DEXTROSE/WATER 1 250ML.BAG IV SCH (12:21)
--- NOTE | 2017-09-25 13:35 | ECHOF ---
Referral Reason:CHF MEASUREMENTS -------- HEIGHT: 170.2 cm WEIGHT: 81.6 kg BP: 122/88 RVIDd: 4.1 cm (< 3.3) IVSd: 1.3 cm (0.6 - 1.1) LVIDd: 6.0 cm (3.9 - 5.3) LVPWd: 0.8 cm (0.6 - 1.1) IVSs: 1.5 cm LVIDs: 5.7 cm LVPWs: 0.8 cm LAESV Index (A-L): 45.88 ml/m Ao Diam: 3.4 cm (2.0 - 3.7) AV Cusp: 2.0 cm (1.5 - 2.6) LA Diam: 4.3 cm (2.7 - 3.8) EPSS: 1.8 cm MV E Rodger: 0.40 m/s MV DecT: 385 ms MV A Rodger: 0.00 m/s MV E/A Ratio: 434.97 RAP: 15.00 mmHg RVSP: 53.47 mmHg MV EF SLOPE: 54.29 mm/s (70 - 150) MV EXCURSION: 1.33 cm (> 18.000) FINDINGS -------- Sinus rhythm. This was a technically good study. The left ventricle is mildly dilated. Left ventricular wall thickness is normal. There is severe global hypokinesis of LV . Overall left ventricular systolic function is severely impaired with, an EF < 20%. The right ventricle is severely enlarged. LA is severely dilated >40 ml/m2 The right atrium is markedly enlarged. Aortic valve is trileaflet and is mildly thickened. Trace amount of aortic regurgitation. There is no evidence of aortic stenosis. The mitral valve leaflets are mildly thickened. Moderate mitral regurgitation is present. Moderate to severe tricuspid regurgitation present. There is mild to moderate pulmonary hypertensio n. The right ventricular systolic pressure, as measured by Doppler, is 53.47mmHg. Trace/mild (physiologic) pulmonic regurgitation. The aortic root size is normal. The inferior vena cava is dilated with no significant inspiratory collapse which is consistent estima iliana right atrial pressure of >20 mmHg. There is no pericardial effusion. CONCLUSIONS -------- 1. Sinus rhythm. 2. This was a technically good study. 3. The left ventricle is mildly dilated. 4. Left ventricular wall thickness is normal. 5. There is severe global hypokinesis of LV . 6. Overall left ventricular systolic function is severely impaired with, an EF < 20%. 7. The right ventricle is severely enlarged. 8. LA is severely dilated >40 ml/m2 9. The right atrium is markedly enlarged. 10. Aortic valve is trileaflet and is mildly thickened. 11. Trace amount of aortic regurgitation. 12. The mitral valve leaflets are mildly thickened. 13. Moderate mitral regurgitation is present. 14. Moderate to severe tricuspid regurgitation present. 15. There is mild to moderate pulmonary hypertension. 16. The right ventricular systolic pressure, as measured by Doppler, is 53.47mmHg. 17. Trace/mild (physiologic) pulmonic regurgitation. 18. The aortic root size is normal. 19. The inferior vena cava is dilated with no significant inspiratory collapse which is consistent es timated right atrial pressure of >20 mmHg. 20. There is no pericardial effusion. [employer]PER: Arthur Ortiz RDCS
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
[2017-09-25 17:25] LABS: Glucose,Whole Blood 96 mg/dL (75-99)
[2017-09-25] MEDS: ATORVASTATIN 80 MG TAB PO SCH (21:20)
[2017-09-25 21:38] LABS: Glucose,Whole Blood 122 mg/dL (75-99)
[2017-09-25] MEDS: FUROSEMIDE 10 MG/ML 4 ML VIAL IV SCH (21:57)
[2017-09-26] MEDS: MORPHINE SULFATE 2 MG/ML SYRINGE IVP PRN ×5 (01:26→20:08)
[2017-09-26 06:03] LABS: Glucose,Whole Blood 126 mg/dL (75-99)
[2017-09-26] MEDS: ASPIRIN 325 MG TAB PO SCH (06:39)
[2017-09-26] MEDS: PANTOPRAZOLE 40 MG TABLET PO SCH (06:39)
[2017-09-26] MEDS: metFORMIN 500 MG TAB PO SCH ×3 (06:39→20:07)
[2017-09-26] MEDS: METOPROLOL TARTRATE 50 MG TAB PO SCH ×2 (09:26→20:07)
[2017-09-26] MEDS: FUROSEMIDE 10 MG/ML 4 ML VIAL IV SCH ×2 (09:26→20:06)
[2017-09-26] MEDS: SPIRONOLACTONE 25 MG TAB PO SCH ×2 (09:26→20:07)
[2017-09-26] MEDS: ENOXAPARIN 80 MG/0.8 ML SYRINGE SQ SCH ×2 (09:27→20:06)
[2017-09-26] MEDS: ALBUTEROL NEBULIZED 2.5 MG/3 ML INHALATION PRN ×3 (11:56→19:34)
[2017-09-26 12:09] LABS: Glucose,Whole Blood 93 mg/dL (75-99)
--- NOTE | 2017-09-26 13:30 | P.PN ---
Subjective Progress Note Date: 09/26/17 Principal diagnosis: CAD/chest discomfort This is a pleasant 62-year-old gentleman with an extensive past medical history consistent of coronary artery disease and prior coronary artery stenting with unknown details at this point, severe cardiomyopathy with a known ejection fraction of 20-25% based on echocardiogram was performed in 2017, recurrent ascites related to congestive heart failure, as well as multiple comorbid conditions, presented to the hospital complaining of chest discomfort. The patient was in his usual state of health until yesterday morning when he woke up from sleep complaining of pain in the neck as well as in the jaw and subsequently in the chest. The discomfort in the chest was as a pressure kind of discomfort. Beside that over the last 48 hours he has been more short of breath with exertion and also with laying flat in bed. Also he did develop bilateral lower extremities edema. The patient was receiving diuretics as an outpatient. Also he was on Lovenox as an outpatient. The EKG showed atrial fibrillation with T-wave inversion in the lateral leads seems to be the same as before. The cardiac enzymes were checked and came in to be slightly abnormal but they are below 1. The chest x-ray showed findings consistent with CHF. The hemoglobin is within normal limits and the kidney function is within normal limits. The patient had an echocardiogram back in 2017 and that showed severe cardiomyopathy. On follow-up with the patient today, he continues to have chest discomfort does not seems to be exertional and seems to be more pleuritic/reproducible. The shortness of breath is better overall. I am going to DC the IV nitroglycerin and continue monitor him. I will obtain one more set of serial cardiac enzymes to assess the troponin trend. Continue IV Lasix for additional 24 hours. Obtain a CBC and BMP and magnesium. He did have an echocardiogram which revealed severe cardiomyopathy with moderate MR and moderate to severe TR. He did have an episode of nonsustained V. tach and we will go ahead and obtain his potassium and magnesium level and follow-up with him. We cannot push the metoprolol anymore because of a marginally low blood pressure. Objective - Vital Signs Vital signs: Vital Signs Temp 97.5 F L 09/26/17 08:00 Pulse 80 09/26/17 12:09 Resp 18 09/26/17 08:00 BP 116/67 09/26/17 08:00 Pulse Ox 85 L 09/26/17 08:00 Intake & Output 09/25/17 09/26/17 09/26/17 18:59 06:59 18:59 Intake Total 274.45 Balance 274.45 Weight 79.1 kg Intake: Intake, IV Titration 34.45 Amount Nitroglycerin-D5w Pmx 50 34.45 mg In Dextrose/Water 1 250ml.bag @ 5 MCG/MIN 1.5 mls/hr IV .Q24H [facility] Rx#: [id number] Oral 240 Other: # Voids 1 - Constitutional General appearance: Present: no acute distress - Respiratory Respiratory: bilateral: wheezing - Cardiovascular Heart sounds: normal: S1, S2 Abnormal Heart Sounds: Present: systolic murmur - Labs CBC & Chem 7: 09/24/17 17:37 09/24/17 17:37 Labs: Abnormal Lab Results - Last 24 Hours (Table) 09/25/17 09/26/17 09/26/17 Range/Units 21:36 06:01 12:10 POC Glucose (mg/dL) 122 H 126 H (75-99) mg/dL Troponin I 0.058 H* (0.000-0.034) ng/mL Assessment and Plan Assessment: Assessment #1 acute coronary event. Acute non-ST elevation myocardial infarction #2 severe underlying coronary artery disease and prior revascularization #3 severe ischemic cardiomyopathy #4 chronic atrial fibrillation #5 recurrent ascites Plan #1 continue the Lasix IV. #2 continue the current medical treatment which include aspirin, metoprolol, and statin #3 DC the nitro drip #4 obtain one more sets of serial cardiac enzyme #5 follow-up with the patient. The patient might need to undergo a coronary angiogram if he continues to have a chest discomfort.
[2017-09-26] MEDS: NITROGLYCERIN-D5W PMX 50 MG in DEXTROSE/WATER 1 250ML.BAG IV SCH (14:14)
[2017-09-26 14:37] LABS: Basophils % (A) 1 %; Eosinophils # (A) 0.1 k/uL (0-0.7); Eosinophils % (A) 2 %; HGB 15.7 gm/dL (13.0-17.5); Lymphocytes # (A) 0.7 k/uL (1.0-4.8); Lymphocytes % (A) 10 %; MCH 31.9 pg (25.0-35.0); MCHC 34.1 g/dL (31.0-37.0); MCV 93.8 fL (80.0-100.0); Mean Platelet Volume 7.4; Monocytes # (A) 0.5 k/uL (0-1.0); Monocytes % (A) 8 %; Neutrophils # (A) 5.1 k/uL (1.3-7.7); Neutrophils % (A) 78 %; Platelet Count 218 k/uL (150-450); RDW 14.7 % (11.5-15.5); WBC 6.5 k/uL (3.8-10.6)
[2017-09-26 14:56] LABS: Anion Gap 7 mmol/L; Blood Urea Nitrogen 18 mg/dL (9-20); Calcium 8.5 mg/dL (8.4-10.2); Carbon Dioxide 31 mmol/L (22-30); Chloride 99 mmol/L (98-107); Glucose 142 mg/dL (74-99); Magnesium 1.6 mg/dL (1.6-2.3); Potassium 4.1 mmol/L (3.5-5.1); Sodium 137 mmol/L (137-145)
--- NOTE | 2017-09-26 16:33 | P.PN ---
Subjective Progress Note Date: 09/26/17 Principal diagnosis: Chest pain and shortness of breath This is a pleasant 62-year-old gentleman with an extensive past medical history consistent of coronary artery disease and prior coronary artery stenting with unknown details at this point, severe cardiomyopathy with a known ejection fraction of 20-25% based on echocardiogram was performed in 2016, recurrent ascites related to congestive heart failure, as well as multiple comorbid conditions, presented to the hospital complaining of chest discomfort. The patient was in his usual state of health until yesterday morning when he woke up from sleep complaining of pain in the neck as well as in the jaw and subsequently in the chest. The discomfort in the chest was as a pressure kind of discomfort. Beside that over the last 48 hours he has been more short of breath with exertion and also with laying flat in bed. Also he did develop bilateral lower extremities edema. The patient was receiving diuretics as an outpatient. Also he was on Lovenox as an outpatient. The EKG showed atrial fibrillation with T-wave inversion in the lateral leads seems to be the same as before. The cardiac enzymes were checked and came in to be slightly abnormal but they are below 1. The chest x-ray showed findings consistent with CHF. The hemoglobin is within normal limits and the kidney function is within normal limits. The patient had an echocardiogram back in 2016 and that showed severe cardiomyopathy. 09/26/2017 Patient continues to complain of chest discomfort mostly pleuritic; no further complaints of shortness of breath; IV nitroglycerin has been discontinued by cardiology service and one more set of serial cardiac enzymes is recommended to assess troponin trend; Lasix is planned to be continued for another 24 hours; patient did have an episode of nonsustained V. tach; electrolytes are being monitored closely and we will supplement if needed; echocardiogram shows severe cardiomyopathy with moderate mitral regurg and moderate to severe tricuspid regurg; cardiology recommending increasing metoprolol if tolerated Objective - Vital Signs Vital signs: Vital Signs Temp 97.5 F L 09/26/17 08:00 Pulse 80 09/26/17 12:09 Resp 18 09/26/17 08:00 BP 116/67 09/26/17 08:00 Pulse Ox 85 L 09/26/17 08:00 Intake & Output 09/25/17 09/26/17 09/26/17 18:59 06:59 18:59 Intake Total 274.45 Balance 274.45 Weight 79.1 kg Intake: Intake, IV Titration 34.45 Amount Nitroglycerin-D5w Pmx 50 34.45 mg In Dextrose/Water 1 250ml.bag @ 5 MCG/MIN 1.5 mls/hr IV .Q24H [facility] Rx#: [id number] Oral 240 Other: # Voids 1 1 - Exam - Constitutional General appearance: Present: average body habitus, cooperative, no acute distress - EENT Eyes: Present: anicteric sclerae, EOMI, PERRLA, normal appearance ENT: Present: hearing grossly normal, normal oropharynx Ears: bilateral: normal - Neck Neck: Present: normal ROM. Absent: lymphadenopathy, rigidity, thyromegaly Carotids: negative: bruit present Thyroid: bilateral: normal size, negative: enlarged, nodule - Respiratory Respiratory: bilateral: CTA, negative: rales, rhonchi, wheezing - Cardiovascular Rhythm: regular Heart sounds: normal: S1, S2 Abnormal Heart Sounds: Absent: systolic murmur, diastolic murmur - Gastrointestinal General gastrointestinal: Present: normal bowel sounds, soft. Absent: distended , organomegaly, tenderness - Genitourinary Genitourinary Comment(s): deferred - Integumentary Integumentary: Present: normal turgor. Absent: jaundiced, rash, ulcer - Neurologic Neurologic: Present: CNII-XII intact. Absent: focal deficits - Musculoskeletal Musculoskeletal: Present: gait normal, strength equal bilaterally - Psychiatric Psychiatric: Present: A&O x's 3, appropriate affect, intact judgment & insight - Labs CBC & Chem 7: 09/26/17 14:20 09/26/17 14:20 Labs: Abnormal Lab Results - Last 24 Hours (Table) 09/25/17 09/26/17 09/26/17 Range/Units 21:36 06:01 12:10 Lymphocytes # (1.0-4.8) k/uL Carbon Dioxide (22-30) mmol/L Glucose (74-99) mg/dL POC Glucose (mg/dL) 122 H 126 H (75-99) mg/dL Troponin I 0.058 H* (0.000-0.034) ng/mL 09/26/17 09/26/17 Range/Units 14:20 14:20 Lymphocytes # 0.7 L (1.0-4.8) k/uL Carbon Dioxide 31 H (22-30) mmol/L Glucose 142 H (74-99) mg/dL POC Glucose (mg/dL) (75-99) mg/dL Troponin I (0.000-0.034) ng/mL Assessment and Plan Assessment: 1. Non-ST elevation NC - Cardiology recommending to continue following troponin trend for further recommendations - Patient is admitted to cardiac telemetry unit - Plan to trend troponins and monitor EKG - Patient is started on therapeutic dose of subcu Lovenox and nitroglycerin secondary to persistent chest pain - We will continue aspirin, metoprolol and statin - Cardiology service is following and further recommendations are pending 2. Severe ischemic cardiomyopathy/ CAD with prior revascularization - Cardiology recommending to continue IV Lasix for another 24 hours prior to switching to oral - Patient is on daily Lasix at home; cardiology is recommending to switch Lasix to IV form - We will monitor strict MICHELLE's with daily weights and renal function with electrolytes 3. Chronic atrial fibrillation; rate controlled on metoprolol 4. Hypertension; fairly controlled on home medications 5. Hyperlipidemia; continue with home dose of atorvastatin 6. Diabetes mellitus type 2 - We will continue with home dose of metformin - We will monitor electrolytes with insulin sliding scale coverage if needed 7. DVT prophylaxis; systemic anticoagulation with Lovenox CODE STATUS; full code Time with Patient: Greater than 30
[2017-09-26 17:35] LABS: Glucose,Whole Blood 137 mg/dL (75-99)
[2017-09-26] MEDS: ATORVASTATIN 80 MG TAB PO SCH (20:06)
[2017-09-26 21:13] LABS: Glucose,Whole Blood 102 mg/dL (75-99)
[2017-09-27] MEDS: MORPHINE SULFATE 2 MG/ML SYRINGE IVP PRN ×5 (00:10→22:31)
[2017-09-27 06:13] LABS: Glucose,Whole Blood 93 mg/dL (75-99)
[2017-09-27] MEDS: PANTOPRAZOLE 40 MG TABLET PO SCH (06:14)
[2017-09-27] MEDS: metFORMIN 500 MG TAB PO SCH ×3 (06:14→20:01)
[2017-09-27] MEDS: FUROSEMIDE 10 MG/ML 4 ML VIAL IV SCH ×2 (08:03→20:01)
[2017-09-27] MEDS: ASPIRIN 325 MG TAB PO SCH (08:03)
[2017-09-27] MEDS: METOPROLOL TARTRATE 50 MG TAB PO SCH ×2 (08:03→20:02)
[2017-09-27] MEDS: SPIRONOLACTONE 25 MG TAB PO SCH ×2 (08:03→20:02)
[2017-09-27] MEDS: ALBUTEROL NEBULIZED 2.5 MG/3 ML INHALATION PRN ×4 (08:26→19:49)
[2017-09-27] MEDS: ENOXAPARIN 80 MG/0.8 ML SYRINGE SQ SCH ×2 (09:00→20:01)
--- NOTE | 2017-09-27 09:22 | P.PN ---
Subjective Progress Note Date: 09/27/17 Principal diagnosis: CAD/chest discomfort This is a pleasant 62-year-old gentleman with an extensive past medical history consistent of coronary artery disease and prior coronary artery stenting with unknown details at this point, severe cardiomyopathy with a known ejection fraction of 20-25% based on echocardiogram was performed in 2017, recurrent ascites related to congestive heart failure, as well as multiple comorbid conditions, presented to the hospital complaining of chest discomfort. The patient was in his usual state of health until yesterday morning when he woke up from sleep complaining of pain in the neck as well as in the jaw and subsequently in the chest. The discomfort in the chest was as a pressure kind of discomfort. Beside that over the last 48 hours he has been more short of breath with exertion and also with laying flat in bed. Also he did develop bilateral lower extremities edema. The patient was receiving diuretics as an outpatient. Also he was on Lovenox as an outpatient. The EKG showed atrial fibrillation with T-wave inversion in the lateral leads seems to be the same as before. The cardiac enzymes were checked and came in to be slightly abnormal but they are below 1. The chest x-ray showed findings consistent with CHF. The hemoglobin is within normal limits and the kidney function is within normal limits. The patient had an echocardiogram back in 2017 and that showed severe cardiomyopathy. On follow-up with the patient today, he still having discomfort in the chest but overall seems to be slightly better compared to before. The cardiac enzymes continues to be slightly elevated but seems to be flat across support. The echocardiogram revealed severe cardiomyopathy was moderate MR and moderate to severe TR. Giving his multiple comorbidities and after I spoke with Dr. VC Mayers we did recommend proceeding with medical treatment only and not coronary angiogram. Having said that I'm going to add oral nitrates to the current medical regimen. Beside that continue aspirin, metoprolol, statin, and Aldactone. Also I will continue the Lasix IV for additional 24 hours. Objective - Vital Signs Vital signs: Vital Signs Temp 97.8 F 09/27/17 08:00 Pulse 84 09/27/17 08:36 Resp 18 09/27/17 08:00 BP 117/68 09/27/17 08:00 Pulse Ox 95 09/27/17 08:00 Intake & Output 09/26/17 09/27/17 09/27/17 18:59 06:59 18:59 Intake Total 504.45 240 Output Total 725 Balance 504.45 -725 240 Weight 75.4 kg Intake: Intake, IV Titration 34.45 Amount Nitroglycerin-D5w Pmx 50 34.45 mg In Dextrose/Water 1 250ml.bag @ 5 MCG/MIN 1.5 mls/hr IV .Q24H [facility] Rx#: [id number] Oral 470 240 Output: Urine 725 Other: # Voids 3 1 - Constitutional General appearance: Present: no acute distress - Respiratory Respiratory: bilateral: rales - Cardiovascular Rhythm: irregularly irregular Heart sounds: normal: S1, S2 - Labs CBC & Chem 7: 09/26/17 14:20 09/26/17 14:20 Labs: Abnormal Lab Results - Last 24 Hours (Table) 09/26/17 09/26/17 09/26/17 Range/Units 12:10 14:20 14:20 Lymphocytes # 0.7 L (1.0-4.8) k/uL Carbon Dioxide 31 H (22-30) mmol/L Glucose 142 H (74-99) mg/dL POC Glucose (mg/dL) (75-99) mg/dL Troponin I 0.058 H* (0.000-0.034) ng/mL 09/26/17 09/26/17 09/26/17 Range/Units 17:21 17:30 21:08 Lymphocytes # (1.0-4.8) k/uL Carbon Dioxide (22-30) mmol/L Glucose (74-99) mg/dL POC Glucose (mg/dL) 137 H 102 H (75-99) mg/dL Troponin I 0.041 H* (0.000-0.034) ng/mL 09/27/17 Range/Units 00:08 Lymphocytes # (1.0-4.8) k/uL Carbon Dioxide (22-30) mmol/L Glucose (74-99) mg/dL POC Glucose (mg/dL) (75-99) mg/dL Troponin I 0.044 H* (0.000-0.034) ng/mL Assessment and Plan Assessment: Assessment #1 acute coronary event. Acute non-ST elevation myocardial infarction #2 severe underlying coronary artery disease and prior revascularization #3 severe ischemic cardiomyopathy #4 chronic atrial fibrillation #5 recurrent ascites Plan #1 continue the Lasix IV. #2 continue the current medical treatment which include aspirin, metoprolol, and statin #3 start the patient on oral nitrates #4 follow-up with the patient
[2017-09-27 11:49] LABS: Glucose,Whole Blood 101 mg/dL (75-99)
[2017-09-27] MEDS ORDERED: HYDROcodone/APAP 10-325MG 1 EACH TAB PO PRN (11:51)
--- NOTE | 2017-09-27 13:03 | CDI ---
Last Revision, February 2017 Documentation Clarification Form Date: 09/27/2017 12:00:00 AM From: Eliana Rodrigues RN, CCDS Admit Date: 09/25/2017 2:22:00 PM Patient Name: Silvino Monet Visit Number: [id number] Discharge Date: ATTENTION: The Clinical Documentation Specialists (CDI) and [facility] Coding Staff appreciate your assistance in clarifying documentation. Please respond to the clarification below the line at the bottom and electronically sign. The CDI & [facility] Coding staff will review the response and follow-up if needed. Please note: Queries are made part of the Legal Health Record. If you have any questions, please contact the author of this message via ITS. Dr. Jameel Daniels History/Risk Factors: Coronary artery disease, Congestive Heart Failure, Throat Cancer, CVA, Peripheral vascular disease, Diabetes Mellitus, Chronic Atrial Fibrillation Clinical Indicators: Present with complaints of chest discomfort and shortness of breath VS/Pulse OX: 109/60 120 20 98.3 95 % 2/L Echocardiogram Results: < 20 % Chest x- ray: Evidence of mild interstitial phase cardiogenic pulmonary edema 09/25/17 Showed findings consistent with CHF (per your progress notes) Treatment: Lasix IV Aldactone Po Monitor Labs Imdur Po Lopressor Po In your professional opinion, can you please clarify the acuity and type of CHF if known? Systolic Heart Failure: Acute Chronic Acute on Chronic Diastolic Heart Failure: Acute Chronic Acute on Chronic Systolic & Diastolic Heart Failure: Acute Chronic Acute on Chronic Heart Failure Unable to Determine Other, please specify Please continue to document in your progress notes and discharge summary in order to capture severity of illness and risk of mortality. Include clinical findings that support your diagnosis. MTDD
[2017-09-27] MEDS: HYDROcodone/APAP 15 ML SOLUTION PO PRN ×2 (14:24→20:02)
[2017-09-27 17:05] LABS: Glucose,Whole Blood 122 mg/dL (75-99)
[2017-09-27] MEDS: ATORVASTATIN 80 MG TAB PO SCH (20:01)
[2017-09-27 20:48] LABS: Glucose,Whole Blood 128 mg/dL (75-99)
[2017-09-28] MEDS: HYDROcodone/APAP 15 ML SOLUTION PO PRN (04:51)
[2017-09-28 05:52] LABS: Glucose,Whole Blood 144 mg/dL (75-99)
[2017-09-28] MEDS: PANTOPRAZOLE 40 MG TABLET PO SCH (05:59)
[2017-09-28] MEDS: metFORMIN 500 MG TAB PO SCH (05:59)
[2017-09-28] MEDS: ALBUTEROL NEBULIZED 2.5 MG/3 ML INHALATION PRN ×2 (08:29→12:01)
[2017-09-28 08:48] VITALS: RESP 18
[2017-09-28] MEDS ORDERED: ISOSORBIDE MONONITRATE ER 30 MG TAB.ER.24H PO SCH (09:00)
[2017-09-28] MEDS: FUROSEMIDE 10 MG/ML 4 ML VIAL IV SCH (09:41)
[2017-09-28] MEDS: ENOXAPARIN 80 MG/0.8 ML SYRINGE SQ SCH (09:41)
[2017-09-28] MEDS: SPIRONOLACTONE 25 MG TAB PO SCH (09:41)
[2017-09-28] MEDS: ASPIRIN 325 MG TAB PO SCH (09:41)
[2017-09-28] MEDS: METOPROLOL TARTRATE 50 MG TAB PO SCH (09:41)
[2017-09-28] MEDS: MORPHINE SULFATE 2 MG/ML SYRINGE IVP PRN (09:47)
--- NOTE | 2017-09-28 10:26 | PN ---
PROGRESS NOTE DATE OF SERVICE: 09/27/2017 This is a 62-year-old gentleman who was admitted with acute non ST-segment elevation myocardial infarction, is being closely monitored. Cardiology is following the patient closely. No chest pain. No palpitations. No fever. PHYSICAL EXAM: Alert and oriented x3. Pulse 84, blood pressure 120/77, respiration 19, temperature 97 degrees, pulse ox 100% on room air. HEENT: Conjunctivae normal. NECK: No jugular venous distension. CARDIOVASCULAR: S1, S2, muffled. RESPIRATORY: Breath sounds diminished at the bases, no rhonchi, no crackles. ABDOMEN: Soft, nontender. LEGS: No edema, no swelling. NERVOUS SYSTEM: No focal deficits. LABS: Troponin 0.44. ASSESSMENT: 1. Acute non ST-segment elevation myocardial infarction, on medical treatment. 2. Severe underlying coronary disease with previous coronary artery bypass grafting. .. 3. Chronic atrial fibrillation. 4. Hypertension. 5. Hyperlipidemia. 6. Diabetes mellitus type 2. RECOMMENDATION: Recommend to continue current management and closely follow with Cardiology. Increase ambulation. Guarded prognosis. Further recommendations to follow. MMODL / IJN: [id number] /
[2017-09-28 11:37] VITALS: BP 122/74; TEMP 97.5
[2017-09-28 11:53] LABS: Glucose,Whole Blood 117 mg/dL (75-99)
[2017-09-28 12:11] VITALS: PULSE 84
--- NOTE | 2017-09-28 12:18 | XR ---
EXAMINATION TYPE: XR chest 1V portable DATE OF EXAM: 09/28/2017 COMPARISON: Prior chest 09/24/2017 HISTORY: Congestive heart failure, shortness of breath and chest pain TECHNIQUE: Single frontal view of the chest is obtained. FINDINGS: There are overlying cardiac leads. Heart is enlarged and stable. Postop change noted to th e cervical spine. No pneumothorax or pleural effusion. Central vascularity and interstitium appear pr ominently. IMPRESSION: Cardiomegaly, correlate for possible pulmonary venous hypertension and interstitial mariel a, possible pulmonary artery hypertension
--- NOTE | 2017-09-28 12:44 | P.PN ---
Subjective Progress Note Date: 09/28/17 Principal diagnosis: CAD/chest discomfort This is a pleasant 62-year-old gentleman with an extensive past medical history consistent of coronary artery disease and prior coronary artery stenting with unknown details at this point, severe cardiomyopathy with a known ejection fraction of 20-25% based on echocardiogram was performed in 2017, recurrent ascites related to congestive heart failure, as well as multiple comorbid conditions, presented to the hospital complaining of chest discomfort. The patient was in his usual state of health until yesterday morning when he woke up from sleep complaining of pain in the neck as well as in the jaw and subsequently in the chest. The discomfort in the chest was as a pressure kind of discomfort. Beside that over the last 48 hours he has been more short of breath with exertion and also with laying flat in bed. Also he did develop bilateral lower extremities edema. The patient was receiving diuretics as an outpatient. Also he was on Lovenox as an outpatient. The EKG showed atrial fibrillation with T-wave inversion in the lateral leads seems to be the same as before. The cardiac enzymes were checked and came in to be slightly abnormal but they are below 1. The chest x-ray showed findings consistent with CHF. The hemoglobin is within normal limits and the kidney function is within normal limits. The patient had an echocardiogram back in 2017 and that showed severe cardiomyopathy. On follow-up with the patient today, he still having discomfort in the chest but overall seems to be slightly better compared to before. The cardiac enzymes continues to be slightly elevated but seems to be flat across support. The echocardiogram revealed severe cardiomyopathy was moderate MR and moderate to severe TR. Giving his multiple comorbidities and after I spoke with Dr. VC Mayers we did recommend proceeding with medical treatment only and not coronary angiogram. Having said that I'm going to add oral nitrates to the current medical regimen. Beside that continue aspirin, metoprolol, statin, and Aldactone. Objective - Vital Signs Vital signs: Vital Signs Temp 97.5 F L 09/28/17 11:32 Pulse 84 09/28/17 12:11 Resp 18 09/28/17 11:32 BP 122/74 09/28/17 11:32 Pulse Ox 97 09/28/17 11:32 Intake & Output 09/27/17 09/28/17 09/28/17 18:59 06:59 18:59 Intake Total 720 480 Output Total 1400 1550 Balance -680 -1550 480 Weight 73.7 kg Intake: Oral 720 480 Output: Urine 1400 1550 Other: # Voids 1 1 - Constitutional General appearance: Present: no acute distress - Respiratory Respiratory: bilateral: diminished - Cardiovascular Rhythm: irregularly irregular Heart sounds: normal: S1, S2 - Labs CBC & Chem 7: 09/26/17 14:20 09/26/17 14:20 Labs: Abnormal Lab Results - Last 24 Hours (Table) 09/27/17 09/27/17 09/28/17 Range/Units 17:03 20:47 05:51 POC Glucose (mg/dL) 122 H 128 H 144 H (75-99) mg/dL 09/28/17 Range/Units 11:38 POC Glucose (mg/dL) 117 H (75-99) mg/dL Assessment and Plan Assessment: Assessment #1 acute coronary event. Acute non-ST elevation myocardial infarction #2 severe underlying coronary artery disease and prior revascularization #3 severe ischemic cardiomyopathy #4 chronic atrial fibrillation #5 recurrent ascites Plan #1 switch the patient from Lasix IV to Lasix by mouth. #2 continue the current medical treatment #3 from the cardiac standpoint he can be discharged home yesterday
[2017-09-28] MEDS ORDERED: FUROSEMIDE 40 MG TAB PO SCH (16:00)
--- NOTE | 2017-09-28 17:41 | DS ---
DISCHARGE SUMMARY DATE OF SERVICE: 09/28/2017 FINAL DIAGNOSES: 1. Acute non ST elevation myocardial infarction on medical treatment. 2. Severe underlying coronary disease with previous coronary artery bypass grafting. 3. Chronic atrial fibrillation. 4. Hypertension. 5. Hyperlipidemia. 6. History of diabetes type 2. DISCHARGE DISPOSITION: The patient is being discharged in stable condition with guarded prognosis. Cardiology cleared the patient for discharge. HISTORY OF PRESENT ILLNESS: This 62-year-old gentleman with past medical history of multiple medical problems had features of acute non ST segment elevation myocardial infarction. Cardiology saw the patient and recommended medical treatment. The patient was treated medically. Patient improved significantly. On exam, vital signs stable. Cardiovascular: S1, S2. Abdomen soft. Nervous system: No focal deficits. Patient is recommended discharged by cardiology. DISCHARGE ADVICE AND MEDICATIONS: 1. Discharge diet is cardiac diet. 2. Activity limited until followup. 3. Follow up with Dr. Escobar in 2-3 days. 4. Follow up with Cardiology as recommended. MEDICATIONS ARE FOLLOWS:: 1. Albuterol 1 puff q.i.d. p.r.n. 2. Ventolin inhaler q.i.d. and p.r.n. 3. Lipitor 80 mg q.h.s. 4. Flexeril 10 mg p.o. t.i.d. p.r.n. 5. Hydrocodone 1 tablet q.4h p.r.n. 6. NovoLog protocol. 7. Metformin 1000 mg p.o. q.h.s. and 500 mg p.o. b.i.d. 8. Aldactone 25 mg p.o. b.i.d. 9. Ecotrin 81 mg p.o. daily. 10.Lovenox 80 mg subcu b.i.d. 11.Lasix 40 mg p.o. b.i.d. 12.Imdur ER 30 mg p.o. daily. 13.Lopressor 50 mg p.o. b.i.d. 14.Nitrostat 0.4 mg p.r.n. 15.Prilosec 20 mg p.o. b.i.d. Please send a copy of this to Dr. Andrews Escobar and Dr. Jamaica Mayers, Cardiology. Once again, the patient is being discharged in stable condition with guarded prognosis. MMODL / IJN: [id number] /
== END 2017-09-28 13:40 | disposition home or self-care (01) | DRG 280 ==
LOC: EC 17:18 → OBSVTOIN 19:07 → 6SEL 19:07 → INTOOBSV 19:07 → 6SEL 19:34 → INTOOBSV 09-25 14:22 → OBSVTOIN 09-25 14:22
PROVIDERS: ADMIT Hospitalist; ATTEND Hospitalist
DX: I21.4 Non-ST elevation (NSTEMI) myocardial infarction (principal); I50.23 Acute on chronic systolic (congestive) heart failure; I47.2 Ventricular tachycardia; R18.8 Other ascites; E11.51 Type 2 diabetes mellitus with diabetic peripheral angiopathy without gangrene; E78.5 Hyperlipidemia, unspecified; F17.200 Nicotine dependence, unspecified, uncomplicated; F41.9 Anxiety disorder, unspecified; I08.1 Rheumatic disorders of both mitral and tricuspid valves; I11.0 Hypertensive heart disease with heart failure; I25.10 Atherosclerotic heart disease of native coronary artery without angina pectoris; Z95.1 Presence of aortocoronary bypass graft; Z95.5 Presence of coronary angioplasty implant and graft; I25.2 Old myocardial infarction; I25.5 Ischemic cardiomyopathy; I48.2 Chronic atrial fibrillation; I49.3 Ventricular premature depolarization; I69.334 Monoplegia of upper limb following cerebral infarction affecting left non-dominant side; Z79.82 Long term (current) use of aspirin; Z79.84 Long term (current) use of oral hypoglycemic drugs; Z79.899 Other long term (current) drug therapy; Z83.3 Family history of diabetes mellitus; Z85.819 Personal history of malignant neoplasm of unspecified site of lip, oral cavity, and pharynx; Z86.711 Personal history of pulmonary embolism; Z86.718 Personal history of other venous thrombosis and embolism; Z92.3 Personal history of irradiation; Z79.01 Long term (current) use of anticoagulants; Z88.5 Allergy status to narcotic agent; R13.10 Dysphagia, unspecified; Z87.440 Personal history of urinary (tract) infections
CPT/HCPCS: 36415; 71045; 71046; 80048; 80053; 80061; 82550; 82553; 83735; 84484; 85025; 85610; 85730; 93005; 93306; 94640; 94760; 96374; 99285

== ENCOUNTER 2017-09-28 21:15 | Inpatient (IN) | payer OTHER ==
[2017-09-28] MEDS ORDERED: ONDANSETRON 4 MG/2 ML VIAL IVP STA (22:30)
[2017-09-28] MEDS ORDERED: SODIUM CHLORIDE 0.9% 500 ML IV STA (22:30)
[2017-09-28] MEDS ORDERED: HYDROmorphone 1 MG/ML 1 ML SYRINGE IVP STA (22:30)
[2017-09-28 22:48] LABS: Basophils % (A) 0 %; Eosinophils % (A) 0 %; HCT 48.1 % (39.0-53.0); HGB 15.5 gm/dL (13.0-17.5); Lymphocytes # (A) 0.5 k/uL (1.0-4.8); Lymphocytes % (A) 4 %; MCH 30.2 pg (25.0-35.0); MCHC 32.3 g/dL (31.0-37.0); MCV 93.5 fL (80.0-100.0); Mean Platelet Volume 7.9; Monocytes # (A) 0.9 k/uL (0-1.0); Monocytes % (A) 7 %; Neutrophils # (A) 10.6 k/uL (1.3-7.7); Neutrophils % (A) 87 %; Platelet Count 251 k/uL (150-450); RBC 5.15 m/uL (4.30-5.90); RDW 14.6 % (11.5-15.5); WBC 12.2 k/uL (3.8-10.6)
[2017-09-28 22:56] LABS: INR 1.2 (<1.2); Partial Thromboplastin Time 29.8 sec (22.0-30.0); Prothrombin Time 11.5 sec (9.0-12.0)
[2017-09-28 22:58] LABS: ALT 33 U/L (21-72); AST 34 U/L (17-59); Albumin 3.7 g/dL (3.5-5.0); Alkaline Phosphatase 226 U/L (38-126); Amylase <30 U/L (30-110); Anion Gap 9 mmol/L; Blood Urea Nitrogen 19 mg/dL (9-20); Calcium 8.8 mg/dL (8.4-10.2); Carbon Dioxide 32 mmol/L (22-30); Chloride 96 mmol/L (98-107); Glucose 136 mg/dL (74-99); Lipase <10 U/L (23-300); Potassium 4.3 mmol/L (3.5-5.1); Sodium 137 mmol/L (137-145); Total Bilirubin 1.8 mg/dL (0.2-1.3); Total Protein 6.1 g/dL (6.3-8.2)
--- NOTE | 2017-09-28 23:07 | CT ---
EXAMINATION TYPE: CT abdomen pelvis wo con DATE OF EXAM: 09/28/2017 COMPARISON: 09/03/2016 HISTORY: lower anterior abdominal pain CT DLP: 453.6 mGycm Automated exposure control for dose reduction was used. TECHNIQUE: Helical acquisition of images was performed from the lung bases through the pelvis. FINDINGS: Lung bases are clear. There is no pleural effusion. There is no pericardial effusion. Heart appears e nlarged. There are numerous small calcified splenic granulomata. There is moderate ascites fluid. There is umb ilical hernia that contains bowel and ascites fluid. There is incarceration. There are surgical clips in the left mid abdomen. There are multiple dilated small bowel loops with fluid levels. There is no sign of free air. There is 4.5 cm cortical cyst lateral right kidney. There are multiple renal calcu li. There is no hydronephrosis. Abdominal aorta is atheromatous. Lumbar spine is intact. Bone wall me asures up to 2.8 cm. Bladder distends smoothly. There is some prostatic calcification. There is no hydronephrosis. IMPRESSION: INCARCERATED UMBILICAL HERNIA THAT CONTAINS SMALL BOWEL. THIS IS PROBABLY THE TRANSITION POINT FOR A MECHANICAL SMALL BOWEL OBSTRUCTION. THERE IS MODERATE ASCITES FLUID. NONOBSTRUCTING RENAL CALCULI. RI GHT RENAL CORTICAL CYST. THE HERNIA HAS INCREASED IN SIZE COMPARED TO OLD EXAM. ASCITES FLUID IS UNCH ANGED.
[2017-09-29] MEDS ORDERED: HYDROmorphone 1 MG/ML 1 ML SYRINGE ONE (03:11)
[2017-09-29] MEDS ORDERED: ONDANSETRON 4 MG/2 ML VIAL IVP PRN (04:13)
[2017-09-29 04:49] VITALS: BMI 25.3
[2017-09-29] MEDS: SODIUM CHLORIDE 0.9% 1,000 ML IV SCH ×2 (05:34→20:03)
[2017-09-29 06:55] LABS: Glucose,Whole Blood 113 mg/dL (75-99)
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
[2017-09-29] MEDS: HYDROmorphone 1 MG/ML 1 ML SYRINGE IVP PRN ×3 (07:19→23:49)
[2017-09-29] MEDS ORDERED: MIDAZOLAM 2 MG/2 ML VIAL IV ONE (08:05)
[2017-09-29] MEDS ORDERED: ceFAZolin 2,000 MG in DEXTROSE/WATER 1 50ML.BAG IVPB SCH ×2 (08:15→15:00)
[2017-09-29] MEDS ORDERED: IV FLUID CONTINUATION 200 ML IV ONE (08:15)
[2017-09-29] MEDS ORDERED: LACTATED RINGERS 1,000 ML IV ONE (08:15)
[2017-09-29 08:25] LABS: Glucose,Whole Blood 118 mg/dL (75-99)
[2017-09-29] MEDS ORDERED: MIDAZOLAM 2 MG/2 ML VIAL ONE (08:31)
[2017-09-29] MEDS ORDERED: ALBUMIN HUMAN 5% 250 ML BOTTLE IVPB ONE (08:31)
[2017-09-29] MEDS ORDERED: LIDOCAINE 2% SYG (PF) 100 MG/5 ML ONE (08:31)
[2017-09-29] MEDS ORDERED: PHENYLEPHRINE-0.9% NACL SYG 1 MG/10 ML SYRINGE ONE (08:31)
[2017-09-29] MEDS ORDERED: METOPROLOL TARTRATE 5 MG/5 ML VIAL IVP ONE (08:31)
[2017-09-29] MEDS: ceFAZolin IN SWFI 2 GM/20 ML SYRINGE IVP SCH ×4 (08:40→23:30)
[2017-09-29] MEDS ORDERED: LIDOCAINE 1%-EPI 1:100,000 30 ML VIAL SQ ONE (08:54)
[2017-09-29] MEDS ORDERED: BUPIVACAINE (PF) 0.5% 30 ML VIAL SQ ONE (08:54)
[2017-09-29] MEDS ORDERED: NALOXONE 0.4 MG/ML 1 ML VIAL IV PRN (09:47)
[2017-09-29] MEDS ORDERED: HYDROmorphone 0.5 MG/0.5 ML SYRINGE IVP PRN (09:47)
--- NOTE | 2017-09-29 09:47 | P.OP ---
Date of Procedure: 09/29/17 Preoperative Diagnosis: Incarcerated umbilical hernia Postoperative Diagnosis: Same, small bowel ischemia Procedure(s) Performed: Release of small bowel obstruction, segmental small bowel resection, herniorrhaphy Anesthesia: MAC, epidural Surgeon: Vy Sanches Estimated Blood Loss (ml): 50 Pathology: other (Small bowel and hernia sac) Condition: stable Disposition: PACU Indications for Procedure: Patient presented with an incarcerated hernia. He had significant medical comorbidities so attempt was made to allow this to reduce. I did not. Description of Procedure: Patient's taken the operative suite where he is prepped and draped in the usual sterile manner under epidural anesthetic. Local anesthetic was instilled in the skin and subcutaneous tissue. There is a significant area of dilated skin over the hernia which would not be viable afterwards so an elliptical incision was made around this. Subcutaneous tissues were divided. Dissection was carried down to the fascia. The hernia was dissected free at the fascial edges. It was extended somewhat laterally to allow for the bowel contents to be reduced. The hernia sac was entered and there was noted to be the effluent. The small bowel appeared to have a small section the was ischemic. Therefore a segmental small bowel resection was made. The antimesenteric borders of the normal bowel were tacked together with 3-0 Vicryl. A small opening was made in each limb of the bowel. A SHIRA stapler was placed and fired. The anastomosis appeared hemostatic. The limbs were then brought together side to side and opening was made in the mesentery. The bowel was transected using a SHIRA stapler completing the anastomosis. The mesentery was then clamped cut and tied with 0 Vicryl suture. Anastomosis appeared pink and viable. The bowel was dropped back into the abdominal cavity. Subcutaneous tissue is then dissected free from the underlying fascia. Once it was adequately mobilized a vest over pants type closure was made with 1 PDS. The sutures were placed and then they were tied down. The "vest" was then sutured down to the fascia again using 1 PDS. A Vicryl mesh was placed over top of this and sutured to the fascia using 0 Vicryl. Cutaneous tissues were closed with 3-0 Vicryl. The skin was closed with gloria. He tolerated the procedure without difficulty and was taken recovery room in satisfactory condition. According to or personnel, ARE correct. Of note he had about 4 L of ascites which was aspirated during the case. Anesthesia address this fluid loss with infusion of albumin. He'll be monitored closely in the ICU.
[2017-09-29] MEDS ORDERED: ALBUMIN HUMAN 5% 250 ML in EMPTY BAG 1 BAG IVPB STA (10:45)
[2017-09-29 11:44] LABS: Glucose,Whole Blood 75 mg/dL (75-99)
[2017-09-29] MEDS: HYDROmorphone 1 MG/ML 1 ML SYRINGE IVP ONE ×6 (13:44→16:10)
[2017-09-29] MEDS ORDERED: IPRATROPIUM-ALBUTEROL 3 ML NEB INHALATION PRN (14:15)
[2017-09-29] MEDS ORDERED: CYCLOBENZAPRINE 10 MG TAB PO PRN (14:17)
[2017-09-29] MEDS ORDERED: NITROGLYCERIN SL TABS 0.4 MG TAB SUBLINGUAL PRN (14:17)
[2017-09-29] MEDS: METOPROLOL TARTRATE 50 MG TAB PO STA ×2 (14:45→14:46)
[2017-09-29] MEDS ORDERED: HYDROmorphone 1 MG/ML 1 ML SYRINGE IVP ONE (14:45)
--- NOTE | 2017-09-29 14:51 | XR ---
EXAMINATION TYPE: XR chest 1V portable DATE OF EXAM: 09/29/2017 COMPARISON: Prior chest 09/28/[address] 09/28/2017 HISTORY: Congestive heart failure TECHNIQUE: Single frontal view of the chest is obtained. FINDINGS: Patient is rotated. Lucency present beneath the right hemidiaphragm. Postop change noted i n the cervical spine. Heart size is stable and enlarged. Central vascularity and interstitium are dawson ewhat increased. No evident pneumothorax or pleural effusion. There are overlying cardiac leads. IMPRESSION: Correlate for possible pulmonary venous hypertension and mild interstitial edema. There is improvement in lung volume, aeration as compared to prior exam. Postoperative pneumoperitoneum.
[2017-09-29] MEDS: FUROSEMIDE 10 MG/ML 4 ML VIAL IV SCH ×2 (15:52→20:04)
[2017-09-29] MEDS: IPRATROPIUM-ALBUTEROL 3 ML NEB INHALATION SCH ×3 (16:47→20:32)
[2017-09-29] MEDS: BUDESONIDE 1 MG/2 ML NEBU INHALATION SCH ×2 (16:48→20:32)
--- NOTE | 2017-09-29 16:48 | HP ---
HISTORY AND PHYSICAL DATE OF SERVICE AND DATE OF ADMISSION: 09/29/2017 CHIEF COMPLAINT: Coronary artery disease, COPD and other multiple medical issues. HISTORY OF PRESENT ILLNESS: This 62-year-old gentleman with a past medical history of multiple medical problems, including COPD, CAD, chronic atrial fibrillation, hypertension, hyperlipidemia, being followed by Dr. Escobar in the outpatient setting, was admitted with acute ncn-[id number]-efnhuji- elevation myocardial infarction recently. The patient was treated medically because of the extensive underlying coronary artery disease. Patient was discharged. After going home the patient was complaining of abdominal pain and was returned to hospital and was noted to have partial small bowel obstruction, possibly secondary to incarcerated umbilical hernia. The umbilical hernia was longstanding. Dr. Sanches performed release of small bowel obstruction, segmental small bowel resection and herniorrhaphy, and the patient is being monitored at this time. The patient is currently having some pain. Patient is short of breath. Patient has bilateral rhonchi and wheezes. The patient also had atrial fibrillation with fast ventricular rate. The patient was given beta blockers and Cardiology is following the patient closely. PAST MEDICAL HISTORY: 1. History of recent myocardial infarction. 2. History of COPD. 3. CVA, TIA. 4. Prostate disorder. 5. History of pulmonary embolism. MEDICATIONS PRIOR TO ADMISSION: 1. Metformin 1000 mg p.o. at bedtime. 2. Glucophage 500 mg p.o. b.i.d. 3. Aldactone 25 mg b.i.d. 4. Prilosec 20 mg b.i.d. 5. Lopressor 50 mg p.o. b.i.d. 6. Combivent 1 t.i.d. p.r.n. 7. Insulin scale. 8. [place] 1 tablet q.4 p.r.n. 9. Lasix 40 mg p.o. b.i.d. 10.Flexeril 10 mg p.o. t.i.d. p.r.n. 11.Lipitor 80 mg at bedtime. 12.Ventolin 2.5 q.i.d. p.r.n. 13.Ventolin inhaler q.i.d. p.r.n. 14.Nitrostat 0.4 p.r.n. 15.Imdur 30 mg p.o. daily. 16.Lovenox 80 mg subcutaneously b.i.d. 17.Ecotrin 81 mg p.o. daily. ALLERGIES: 1. CODEINE. 2. KETOROLAC. FAMILY HISTORY: No history of heart disease or strokes in the family. SOCIAL HISTORY: History of smoking and THC. REVIEW OF SYSTEMS: Could not be taken because the patient is confused. PHYSICAL EXAMINATION: Pulse is 91, blood pressure 112/58, respiration 12, temperature normal, pulse ox 100% on 2 L. HEENT: Conjunctivae normal. Oral mucosa moist. NECK: No jugular venous distention. No carotid bruit. No lymph node enlargement. CARDIOVASCULAR SYSTEM: S1, S2 muffled. Tachycardic. No murmur. No thrills. RESPIRATORY SYSTEM: Breath sounds diminished at the bases. Bilateral scattered rhonchi and crackles. Expiratory wheezing also present. ABDOMEN: Soft. Mild diffuse distention. Status post surgery. Bowel sounds diminished. LEGS: No edema. No swelling. NERVOUS SYSTEM: Higher functions as mentioned earlier. Moves all 4 limbs. No focal motor or sensory deficit. LYMPHATICS: No lymph node palpable in neck, axillae or groin. SKIN: No ulcer, rash, bleeding. LABS: WBC 12.2, hemoglobin 15.5. Total protein 6.1. ASSESSMENT: 1. Status post release of small bowel obstruction with segmental small bowel resection, herniorrhaphy for incarcerated umbilical hernia. 2. Recent acute pht-UV-bsgqdin-elevation myocardial infarction, on medical treatment. 3. Chronic obstructive pulmonary disease, acute exacerbation. 4. Atrial fibrillation with fast ventricular rate. 5. Severe underlying coronary artery disease with a coronary artery bypass graft. 6. Hypertension. 7. Hyperlipidemia. 8. Diabetes mellitus, type 2. 9. Increased white count. 10.History of pulmonary embolism. 11.History of chronic systolic dysfunction, ejection fraction 25%. RECOMMENDATIONS AND DISCUSSION: In this 62-year-old gentleman who presented with multiple complex medical issues, at this time I recommend to continue current medications. I would recommend resuming the intensive bronchodilators. Continue with the beta blockers. Continue with antiplatelet agents. Continue with the rest of the medications: Lovenox to be initiated tomorrow per surgery and cardiology recommendations. The heart rate is not controlled. Recommend Cardizem drip and monitor closely with telemetry. Continue the rest of the medications. DVT prophylaxis. Proton pump inhibitors. See orders for further details. Home medications are reviewed. Closely follow with Dr. Sanches, the surgeon. Further recommendations to follow. Patient may be asked to follow up with Dr. Andrews Escobar after discharge. Discussed with staff. MMODL / IJN: [id number] /
[2017-09-29] MEDS: PANTOPRAZOLE 40 MG/10 ML VIAL IV SCH (17:27)
[2017-09-29] MEDS: SPIRONOLACTONE 25 MG TAB PO SCH (20:02)
[2017-09-29] MEDS: METOPROLOL TARTRATE 50 MG TAB PO SCH (20:02)
[2017-09-29] MEDS: INSULIN ASPART 100 UNIT/ML 1 ML 10 ML VIAL SQ SCH ×2 (20:03→21:39)
[2017-09-29] MEDS: metFORMIN 500 MG TAB PO SCH ×2 (20:27)
[2017-09-29] MEDS: FORMOTEROL FUMARATE 20 MCG/2 ML NEBU INHALATION SCH (20:32)
[2017-09-29 21:34] LABS: Glucose,Whole Blood 131 mg/dL (75-99)
[2017-09-30 01:56] LABS: Hemoglobin A1C 5.9 % (4.0-6.0)
[2017-09-30] MEDS ORDERED: Magnesium Replacement Protocol 1 EACH MISC MISCELLANE PRN (02:08)
[2017-09-30] MEDS: SODIUM CHLORIDE 0.9% 1,000 ML IV SCH ×4 (02:51→21:09)
[2017-09-30] MEDS: MAGNESIUM SULFATE-D5W PMX 1 GM in DEXTROSE/WATER 1 100ML.BAG IVPB SCH ×2 (02:51→04:51)
--- NOTE | 2017-09-30 04:27 | CONS ---
CONSULTATION DATE OF SERVICE: September 29, 2017. REASON FOR THE CONSULTATION: 1. Chronic atrial fibrillation. 2. Coronary artery disease. HISTORY OF PRESENT ILLNESS: This is a pleasant 62-year-old gentleman who sees Dr. Jamaica Mayers in the office on a regular basis with a past medical history significant for coronary artery disease and prior coronary artery revascularization, severe ischemic cardiomyopathy with a known ejection fraction in the range of 20% to 25%, this is based on recent echocardiogram was performed for a few weeks ago, chronic atrial fibrillation with controlled heart rate, history of recurrent ascites that requires paracentesis every week, and for that reason, the patient is on Lovenox and he is not on any oral anticoagulation for the atrial fibrillation, presented to the hospital complaining of abdominal discomfort. The patient just was admitted to the hospital recently with acute exacerbation of congestive heart failure secondary to systolic dysfunction as well as mildly abnormal cardiac enzymes did not consist with acute non ST elevation myocardial infarction. The patient was treated medically with diuretics with significant improvement in his symptoms and he was discharged from the hospital in stable medical condition and was euvolemic yesterday. When he left home, he was doing well until later in the afternoon when he took a nap and after he woke up from sleep, he complained that he started experiencing discomfort in the abdomen was sharp and of sudden onset. When he presented to the emergency room, he was diagnosed with incarcerated umbilical hernia and he underwent surgery by Dr. Sanches where he did have release of small-bowel obstruction and small-bowel resection. Currently, the patient is pain free and the abdomen is very soft. We got involved in his care because of his multiple cardiac conditions and for management of atrial fibrillation mainly. I did see the patient after the surgery. He was laying comfortably in bed. He denies having any chest pain or chest discomfort or shortness of breath. He is hemodynamically stable. He is in atrial fibrillation with controlled heart rate with a heart rate around 90 beats per minute. The blood pressure after the surgery was marginally low, but currently he is maintaining normal blood pressure. PAST MEDICAL HISTORY: Includes: 1. Coronary artery disease. 2. Peripheral arterial disease. 3. Severe ischemic cardiomyopathy. 4. Chronic atrial fibrillation. 5. History of recurrent ascites. 6. Prostate disorder. 7. Possible or questionable pulmonary embolization. PAST SURGICAL HISTORY: Includes: 1. Heart catheterization with coronary revascularization. 2. Multiple orthopedic surgeries. SOCIAL HISTORY: The patient currently is a smoker. MEDICATIONS: Include the followin. Albuterol/ipratropium inhaler. 2. Pulmicort 1 mg inhaler b.i.d. 3. Cyclobenzaprine 10 mg p.o. t.i.d. 4. Lovenox 40 mg subcu daily. 5. Pepcid 20 mg daily. 6. Furosemide 40 mg IV b.i.d. 7. Dilaudid 1 mg IV q.4 hours p.r.n. 8. Insulin sliding scale. 9. Imdur 30 mg daily. 10.Metformin 500 mg p.o. b.i.d. 11.Metoprolol 50 mg p.o. b.i.d. 12.Zofran 4 mg IV q.6 hours p.r.n. 13.Aldactone 25 mg p.o. b.i.d. PHYSICAL EXAMINATION: GENERAL APPEARANCE: The patient does not look in any pain or any distress. VITAL SIGNS: Vitals showed temp of 98.5, heart rate 94, respiratory rate 18, blood pressure is 128/70. CARDIOVASCULAR examination shows irregularly irregular rhythm. RESPIRATORY examination showed clear breathing sounds bilaterally. ABDOMEN is soft and nontender. EXTREMITIES Examination, no pedal edema was noted. DIAGNOSTIC WORKUP: WBC 12.2, hemoglobin 15.5, platelet is 251. Sodium 137, potassium 4.3, creatinine 0.60. ASSESSMENT: 1. Incarcerated umbilical hernia and status post surgery with release of small-bowel obstruction. 2. Chronic atrial fibrillation with controlled heart rate. 3. Severe underlying coronary artery disease and status post coronary artery stenting. 4. Severe ischemic cardiomyopathy. 5. Recurrent ascites. 6. Multiple comorbid conditions. PLAN: 1. The patient is in atrial fibrillation, but the heart rate seems to be well controlled. 2. I did recommend restarting the patient on his AV mera mayelin agents including metoprolol to keep the heart rate controlled. 3. I did also recommend starting the patient back on his anticoagulation with Lovenox. 4. I also did recommend restarting the patient on his diuretics. 5. We will continue following with him. Thank you for allowing us participate in his care. MMODL / IJN: [id number] /
[2017-09-30 06:07] LABS: Glucose,Whole Blood 108 mg/dL (75-99)
[2017-09-30] MEDS: HYDROmorphone 1 MG/ML 1 ML SYRINGE IVP PRN ×5 (06:10→22:26)
[2017-09-30 06:27] LABS: Basophils % (A) 0 %; Eosinophils % (A) 0 %; HCT 45.4 % (39.0-53.0); Lymphocytes # (A) 0.5 k/uL (1.0-4.8); Lymphocytes % (A) 4 %; MCH 30.7 pg (25.0-35.0); MCV 93.3 fL (80.0-100.0); Mean Platelet Volume 7.5; Monocytes # (A) 0.9 k/uL (0-1.0); Monocytes % (A) 8 %; Neutrophils # (A) 10.5 k/uL (1.3-7.7); Neutrophils % (A) 86 %; Platelet Count 199 k/uL (150-450); RBC 4.87 m/uL (4.30-5.90); RDW 14.9 % (11.5-15.5); WBC 12.1 k/uL (3.8-10.6)
[2017-09-30 06:29] LABS: ALT 27 U/L (21-72); AST 25 U/L (17-59); Albumin 3.1 g/dL (3.5-5.0); Alkaline Phosphatase 164 U/L (38-126); Anion Gap 7 mmol/L; Blood Urea Nitrogen 17 mg/dL (9-20); Calcium 8.3 mg/dL (8.4-10.2); Carbon Dioxide 32 mmol/L (22-30); Chloride 96 mmol/L (98-107); Glucose 112 mg/dL (74-99); Potassium 4.2 mmol/L (3.5-5.1); Sodium 135 mmol/L (137-145); Total Bilirubin 1.6 mg/dL (0.2-1.3); Total Protein 5.1 g/dL (6.3-8.2)
[2017-09-30] MEDS: INSULIN ASPART 100 UNIT/ML 1 ML 10 ML VIAL SQ SCH ×4 (06:31→21:09)
[2017-09-30] MEDS: IPRATROPIUM-ALBUTEROL 3 ML NEB INHALATION SCH ×4 (08:08→20:25)
[2017-09-30] MEDS: FORMOTEROL FUMARATE 20 MCG/2 ML NEBU INHALATION SCH ×2 (08:08→20:25)
[2017-09-30] MEDS: BUDESONIDE 1 MG/2 ML NEBU INHALATION SCH ×2 (08:08→20:25)
[2017-09-30] MEDS: ENOXAPARIN 40 MG/0.4 ML SYRINGE SQ SCH (08:12)
[2017-09-30] MEDS: metFORMIN 500 MG TAB PO SCH ×3 (08:13→20:37)
[2017-09-30] MEDS: SPIRONOLACTONE 25 MG TAB PO SCH ×2 (08:13→20:37)
[2017-09-30] MEDS: METOPROLOL TARTRATE 50 MG TAB PO SCH ×2 (08:13→20:37)
[2017-09-30] MEDS: ISOSORBIDE MONONITRATE ER 30 MG TAB.ER.24H PO SCH (08:13)
[2017-09-30] MEDS: PANTOPRAZOLE 40 MG/10 ML VIAL IV SCH (08:13)
[2017-09-30] MEDS: FUROSEMIDE 10 MG/ML 4 ML VIAL IV SCH (08:13)
--- NOTE | 2017-09-30 09:25 | XR ---
EXAMINATION TYPE: XR chest 1V portable DATE OF EXAM: 09/30/2017 COMPARISON: Prior chest 09/29/2017 HISTORY: Congestive heart failure, abnormal chest x-ray TECHNIQUE: Single frontal view of the chest is obtained. FINDINGS: The heart remains enlarged. The air seen beneath the right hemidiaphragm is less conspicuo us. No pneumothorax or pleural effusion. Central vascularity and interstitium mildly increased. There are overlying cardiac leads. IMPRESSION: Correlate for possible pulmonary venous hypertension and interstitial edema. Pneumoperit oneum is less apparent.
--- NOTE | 2017-09-30 10:38 | P.PN ---
Subjective Progress Note Date: 09/30/17 Principal diagnosis: Postop small bowel resection and umbilical herniorrhaphy Patient is postop day 1 weren't incarcerated umbilical hernia. He underwent small bowel resection. This having less pain today. He is having expected incisional pain. He is having some nausea without vomiting. No flatus yet. No chest pain or shortness of breath Objective - Vital Signs Vital signs: Vital Signs Temp 97.8 F 09/30/17 08:23 Pulse 94 09/30/17 08:34 Resp 18 09/30/17 08:23 BP 109/75 09/30/17 08:23 Pulse Ox 95 09/30/17 08:23 Intake & Output 09/29/17 09/30/17 09/30/17 18:59 06:59 18:59 Intake Total 1950 200 240 Output Total 1000 750 Balance 950 -550 240 Weight 73.482 kg 72.076 kg Intake: IV 1950 Intake, IV Titration 200 Amount Magnesium Sulfate-D5w Pmx 200 1 gm In Dextrose/Water 1 100ml.bag @ 100 mls/hr IVPB Q1H [facility] Rx#: [id number] Oral 240 Output: Urine 950 750 Estimated Blood Loss 50 Other: Voiding Method Indwelling Catheter Urinal Urinal # Voids 2 - Constitutional General appearance: Present: cooperative, no acute distress - Respiratory Respiratory: bilateral: diminished, rhonchi, wheezing - Cardiovascular Rhythm: irregularly irregular - Gastrointestinal General gastrointestinal: Present: decreased bowel sounds, soft (Roughly distended) Localized gastrointestinal: surgical scar: RUQ (Dressing is intact with a small amount of old dried blood) - Labs CBC & Chem 7: 09/30/17 05:49 09/30/17 05:49 Labs: Abnormal Lab Results - Last 24 Hours (Table) 09/29/17 09/30/17 09/30/17 Range/Units 21:33 01:17 05:49 WBC (3.8-10.6) k/uL Neutrophils # (1.3-7.7) k/uL Lymphocytes # (1.0-4.8) k/uL Sodium 135 L (137-145) mmol/L Chloride 96 L (98-107) mmol/L Carbon Dioxide 32 H (22-30) mmol/L Glucose 112 H (74-99) mg/dL POC Glucose (mg/dL) 131 H (75-99) mg/dL Calcium 8.3 L (8.4-10.2) mg/dL Magnesium 1.5 L (1.6-2.3) mg/dL Total Bilirubin 1.6 H (0.2-1.3) mg/dL Alkaline Phosphatase 164 H (38-126) U/L Total Protein 5.1 L (6.3-8.2) g/dL Albumin 3.1 L (3.5-5.0) g/dL 09/30/17 09/30/17 Range/Units 05:49 06:07 WBC 12.1 H (3.8-10.6) k/uL Neutrophils # 10.5 H (1.3-7.7) k/uL Lymphocytes # 0.5 L (1.0-4.8) k/uL Sodium (137-145) mmol/L Chloride (98-107) mmol/L Carbon Dioxide (22-30) mmol/L Glucose (74-99) mg/dL POC Glucose (mg/dL) 108 H (75-99) mg/dL Calcium (8.4-10.2) mg/dL Magnesium (1.6-2.3) mg/dL Total Bilirubin (0.2-1.3) mg/dL Alkaline Phosphatase (38-126) U/L Total Protein (6.3-8.2) g/dL Albumin (3.5-5.0) g/dL Assessment and Plan (1) Incarcerated umbilical hernia Current Visit: Yes Status: Acute Code(s): K42.0 - UMBILICAL HERNIA WITH OBSTRUCTION, WITHOUT GANGRENE SNOMED Code(s): 972533143 (2) A-fib Current Visit: No Status: Acute Code(s): I48.91 - UNSPECIFIED ATRIAL FIBRILLATION SNOMED Code(s): 11267951 (3) Ascites Current Visit: No Status: Acute Code(s): R18.8 - OTHER ASCITES SNOMED Code (s): 278188854 (4) Atypical chest pain Current Visit: No Status: Acute Code(s): R07.89 - OTHER CHEST PAIN SNOMED Code(s): 139402600 (5) CHF (congestive heart failure) Current Visit: No Status: Acute Code(s): I50.9 - HEART FAILURE, UNSPECIFIED SNOMED Code(s): 93959346 (6) COPD (chronic obstructive pulmonary disease) Current Visit: No Status: Acute Code(s): J44.9 - CHRONIC OBSTRUCTIVE PULMONARY DISEASE, UNSPECIFIED SNOMED Code(s): 41034477 (7) Diabetes Current Visit: No Status: Acute Code(s): E11.9 - TYPE 2 DIABETES MELLITUS WITHOUT COMPLICATIONS SNOMED Code(s): 92189787 (8) History of coronary artery disease Current Visit: No Status: Acute Code(s): Z86.79 - PERSONAL HISTORY OF OTHER DISEASES OF THE CIRCULATORY SYSTEM SNOMED Code(s): 330751219 (9) History of pulmonary embolism Current Visit: No Status: Acute Code(s): Z86.711 - PERSONAL HISTORY OF PULMONARY EMBOLISM SNOMED Code(s): 869557364 (10) NSTEMI (non-ST elevated myocardial infarction) Current Visit: No Status: Acute Code(s): I21.4 - NON-ST ELEVATION (NSTEMI) MYOCARDIAL INFARCTION SNOMED Code(s): 447566162 (11) Thoracic aortic aneurysm Current Visit: No Status: Acute Code(s): I71.2 - THORACIC AORTIC ANEURYSM, WITHOUT RUPTURE SNOMED Code(s): 223030128 (12) Throat cancer Current Visit: No Status: Acute Code(s): C14.0 - MALIGNANT NEOPLASM OF PHARYNX, UNSPECIFIED SNOMED Code(s): 074252400 Plan: We'll keep him on clear liquids today. If he develops vomiting he'll be made and possibly place an NG tube. One was not placed intraoperatively due to had neck radiation. Encouraged ambulation. Monitor wound for signs of infection. Progressing slowly.
[2017-09-30 11:31] LABS: Glucose,Whole Blood 106 mg/dL (75-99)
--- NOTE | 2017-09-30 11:54 | P.PN ---
Progress Note - Text Progress Note Date: 09/30/17 62-year-old male status post incarcerated umbilical hernia repair postop day # 1. She had procedure done under epidural catheter analgesia. Catheter was removed last night, as patient needs to be started on his anticoagulation. I instructed nursing staff to start anticoagulation 24 hours after epidural catheter placement. Patient received first dose of anticoagulant greater than 24 hours after epidural placement. Patient has no motor or sensory deficits, up and ambulating.
--- NOTE | 2017-09-30 11:56 | P.PN ---
Subjective Progress Note Date: 09/30/17 Principal diagnosis: CAD/PAD This is a pleasant 62-year-old gentleman who sees Dr. VC Mayers in the office on regular basis with a past medical history significant for CAD, PAD, ischemic cardiomyopathy, as well as chronic atrial fibrillation who was admitted to the hospital with abdominal discomfort and was diagnosed with an incarcerated hernia where the patient underwent release of small bowel. From a cardiovascular standpoint of view, the patient is doing good. He denies having any chest pain or chest discomfort. No shortness of breath. No dizziness or lightheadedness. No syncope. I am going to DC the IV Lasix and start the patient on by mouth Lasix at the same dose at home. He seems to be euvolemic. We will continue following up with the patient on when necessary case. Objective - Vital Signs Vital signs: Vital Signs Temp 97.8 F 09/30/17 08:23 Pulse 94 09/30/17 08:34 Resp 18 09/30/17 08:23 BP 109/75 09/30/17 08:23 Pulse Ox 95 09/30/17 08:23 Intake & Output 09/29/17 09/30/17 09/30/17 18:59 06:59 18:59 Intake Total 1950 200 240 Output Total 1000 750 Balance 950 -550 240 Weight 73.482 kg 72.076 kg Intake: IV 1950 Intake, IV Titration 200 Amount Magnesium Sulfate-D5w Pmx 200 1 gm In Dextrose/Water 1 100ml.bag @ 100 mls/hr IVPB Q1H [facility] Rx#: [id number] Oral 240 Output: Urine 950 750 Estimated Blood Loss 50 Other: Voiding Method Indwelling Catheter Urinal Urinal # Voids 2 - Constitutional General appearance: Present: no acute distress - Respiratory Respiratory: bilateral: CTA - Cardiovascular Rhythm: irregularly irregular Heart sounds: normal: S1, S2 - Labs CBC & Chem 7: 09/30/17 05:49 09/30/17 05:49 Labs: Abnormal Lab Results - Last 24 Hours (Table) 09/29/17 09/30/17 09/30/17 Range/Units 21:33 01:17 05:49 WBC (3.8-10.6) k/uL Neutrophils # (1.3-7.7) k/uL Lymphocytes # (1.0-4.8) k/uL Sodium 135 L (137-145) mmol/L Chloride 96 L (98-107) mmol/L Carbon Dioxide 32 H (22-30) mmol/L Glucose 112 H (74-99) mg/dL POC Glucose (mg/dL) 131 H (75-99) mg/dL Calcium 8.3 L (8.4-10.2) mg/dL Magnesium 1.5 L (1.6-2.3) mg/dL Total Bilirubin 1.6 H (0.2-1.3) mg/dL Alkaline Phosphatase 164 H (38-126) U/L Total Protein 5.1 L (6.3-8.2) g/dL Albumin 3.1 L (3.5-5.0) g/dL 09/30/17 09/30/17 09/30/17 Range/Units 05:49 06:07 11:30 WBC 12.1 H (3.8-10.6) k/uL Neutrophils # 10.5 H (1.3-7.7) k/uL Lymphocytes # 0.5 L (1.0-4.8) k/uL Sodium (137-145) mmol/L Chloride (98-107) mmol/L Carbon Dioxide (22-30) mmol/L Glucose (74-99) mg/dL POC Glucose (mg/dL) 108 H 106 H (75-99) mg/dL Calcium (8.4-10.2) mg/dL Magnesium (1.6-2.3) mg/dL Total Bilirubin (0.2-1.3) mg/dL Alkaline Phosphatase (38-126) U/L Total Protein (6.3-8.2) g/dL Albumin (3.5-5.0) g/dL Assessment and Plan Assessment: assessment #1 status post hernia surgery #2 chronic A. fib with controlled heart rate #3 CAD #4 PAD #5 multiple comorbid conditions plan #1 from the cardiac vascular standpoint of view, the patient is asymptomatic and hemodynamically stable #2 we will follow-up with the patient on when necessary case.
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
[2017-09-30] MEDS: FUROSEMIDE 40 MG TAB PO SCH (15:40)
[2017-09-30 17:02] LABS: Glucose,Whole Blood 129 mg/dL (75-99)
[2017-09-30 20:42] LABS: Glucose,Whole Blood 136 mg/dL (75-99)
[2017-10-01] MEDS ORDERED: HYDROmorphone 1 MG/ML 1 ML SYRINGE ONE (03:30)
[2017-10-01 05:51] LABS: Glucose,Whole Blood 230 mg/dL (75-99)
[2017-10-01 06:04] LABS: Basophils % (A) 0 %; Eosinophils # (A) 0.1 k/uL (0-0.7); Eosinophils % (A) 0 %; HCT 45.4 % (39.0-53.0); HGB 14.5 gm/dL (13.0-17.5); Lymphocytes # (A) 0.5 k/uL (1.0-4.8); Lymphocytes % (A) 4 %; MCH 30.2 pg (25.0-35.0); MCV 94.3 fL (80.0-100.0); Mean Platelet Volume 7.8; Monocytes % (A) 8 %; Neutrophils # (A) 10.7 k/uL (1.3-7.7); Neutrophils % (A) 86 %; Platelet Count 237 k/uL (150-450); RBC 4.82 m/uL (4.30-5.90); RDW 14.9 % (11.5-15.5); WBC 12.4 k/uL (3.8-10.6)
[2017-10-01] MEDS: INSULIN ASPART 100 UNIT/ML 1 ML 10 ML VIAL SQ SCH ×4 (06:29→21:12)
[2017-10-01 06:37] LABS: Anion Gap 8 mmol/L; Blood Urea Nitrogen 17 mg/dL (9-20); Calcium 8.6 mg/dL (8.4-10.2); Carbon Dioxide 30 mmol/L (22-30); Chloride 95 mmol/L (98-107); Glucose 109 mg/dL (74-99); Magnesium 1.9 mg/dL (1.6-2.3); Potassium 4.3 mmol/L (3.5-5.1); Sodium 133 mmol/L (137-145)
[2017-10-01 07:57] VITALS: RESP 16
[2017-10-01] MEDS: HYDROmorphone 1 MG/ML 1 ML SYRINGE IVP PRN ×5 (07:58→21:46)
[2017-10-01] MEDS: SPIRONOLACTONE 25 MG TAB PO SCH ×2 (07:58→22:14)
[2017-10-01] MEDS: FUROSEMIDE 40 MG TAB PO SCH ×2 (07:58→15:15)
[2017-10-01] MEDS: metFORMIN 500 MG TAB PO SCH ×3 (07:58→22:14)
[2017-10-01] MEDS: METOPROLOL TARTRATE 50 MG TAB PO SCH ×3 (07:58→22:15)
[2017-10-01] MEDS: ENOXAPARIN 40 MG/0.4 ML SYRINGE SQ SCH (07:58)
[2017-10-01] MEDS: PANTOPRAZOLE 40 MG/10 ML VIAL IV SCH (07:58)
[2017-10-01] MEDS: ISOSORBIDE MONONITRATE ER 30 MG TAB.ER.24H PO SCH (07:58)
[2017-10-01] MEDS: IPRATROPIUM-ALBUTEROL 3 ML NEB INHALATION SCH ×4 (09:07→20:00)
[2017-10-01] MEDS: BUDESONIDE 1 MG/2 ML NEBU INHALATION SCH ×2 (09:07→20:01)
[2017-10-01] MEDS: FORMOTEROL FUMARATE 20 MCG/2 ML NEBU INHALATION SCH ×2 (09:07→20:01)
--- NOTE | 2017-10-01 09:44 | P.PN ---
Subjective Progress Note Date: 10/01/17 Principal diagnosis: Postop small bowel resection and umbilical herniorrhaphy The patient is seen on rounds. He denies any nausea or vomiting today. Denies any flatus. He is hungry. Objective - Vital Signs Vital signs: Vital Signs Temp 98 F 10/01/17 07:56 Pulse 104 H 10/01/17 09:24 Resp 16 10/01/17 07:56 BP 112/64 10/01/17 07:56 Pulse Ox 93 L 10/01/17 07:56 Intake & Output 09/30/17 10/01/17 10/01/17 18:59 06:59 18:59 Intake Total 440 240 Balance 440 240 Weight 72 kg Intake: Oral 440 240 Other: Voiding Method Urinal Urinal # Voids 1 1 - Constitutional General appearance: Present: cooperative, no acute distress - Gastrointestinal General gastrointestinal: Present: decreased bowel sounds, distended (And tympanitic. No significant reaccumulation of ascites) Localized gastrointestinal: surgical scar: diffuse (Incisions are intact clean and dry ) - Labs CBC & Chem 7: 10/01/17 05:45 10/01/17 05:45 Labs: Abnormal Lab Results - Last 24 Hours (Table) 09/30/17 09/30/17 09/30/17 Range/Units 11:30 17:00 20:40 WBC (3.8-10.6) k/uL Neutrophils # (1.3-7.7) k/uL Lymphocytes # (1.0-4.8) k/uL Sodium (137-145) mmol/L Chloride (98-107) mmol/L Glucose (74-99) mg/dL POC Glucose (mg/dL) 106 H 129 H 136 H (75-99) mg/dL 10/01/17 10/01/17 10/01/17 Range/Units 05:45 05:45 05:48 WBC 12.4 H (3.8-10.6) k/uL Neutrophils # 10.7 H (1.3-7.7) k/uL Lymphocytes # 0.5 L (1.0-4.8) k/uL Sodium 133 L (137-145) mmol/L Chloride 95 L (98-107) mmol/L Glucose 109 H (74-99) mg/dL POC Glucose (mg/dL) 230 H (75-99) mg/dL Assessment and Plan (1) Incarcerated umbilical hernia Current Visit: Yes Status: Acute Code(s): K42.0 - UMBILICAL HERNIA WITH OBSTRUCTION, WITHOUT GANGRENE SNOMED Code(s): 994834510 (2) A-fib Current Visit: No Status: Acute Code(s): I48.91 - UNSPECIFIED ATRIAL FIBRILLATION SNOMED Code(s): 47470954 (3) Ascites Current Visit: No Status: Acute Code(s): R18.8 - OTHER ASCITES SNOMED Code (s): 854105475 (4) Atypical chest pain Current Visit: No Status: Acute Code(s): R07.89 - OTHER CHEST PAIN SNOMED Code(s): 297967364 (5) CHF (congestive heart failure) Current Visit: No Status: Acute Code(s): I50.9 - HEART FAILURE, UNSPECIFIED SNOMED Code(s): 22968596 (6) COPD (chronic obstructive pulmonary disease) Current Visit: No Status: Acute Code(s): J44.9 - CHRONIC OBSTRUCTIVE PULMONARY DISEASE, UNSPECIFIED SNOMED Code(s): 35136296 (7) Diabetes Current Visit: No Status: Acute Code(s): E11.9 - TYPE 2 DIABETES MELLITUS WITHOUT COMPLICATIONS SNOMED Code(s): 86236821 (8) History of coronary artery disease Current Visit: No Status: Acute Code(s): Z86.79 - PERSONAL HISTORY OF OTHER DISEASES OF THE CIRCULATORY SYSTEM SNOMED Code(s): 549065038 (9) History of pulmonary embolism Current Visit: No Status: Acute Code(s): Z86.711 - PERSONAL HISTORY OF PULMONARY EMBOLISM SNOMED Code(s): 034139267 (10) NSTEMI (non-ST elevated myocardial infarction) Current Visit: No Status: Acute Code(s): I21.4 - NON-ST ELEVATION (NSTEMI) MYOCARDIAL INFARCTION SNOMED Code(s): 208511097 (11) Thoracic aortic aneurysm Current Visit: No Status: Acute Code(s): I71.2 - THORACIC AORTIC ANEURYSM, WITHOUT RUPTURE SNOMED Code(s): 819879686 (12) Throat cancer Current Visit: No Status: Acute Code(s): C14.0 - MALIGNANT NEOPLASM OF PHARYNX, UNSPECIFIED SNOMED Code(s): 392033290 Plan: We will slowly advance his diet. If he is able to tolerate this, he should be surgically stable for discharge in 24-48 hours.
[2017-10-01] MEDS: SODIUM CHLORIDE 0.9% 1,000 ML IV SCH (09:51)
--- NOTE | 2017-10-01 10:08 | P.PN ---
Subjective Progress Note Date: 09/30/17 Principal diagnosis: Incarcerated small bowel hernia status post small bowel disease surgery; small bowel resection and umbilical herniorrhaphy This is a pleasant 62-year-old gentleman who sees Dr. VC Mayers in the office on regular basis with a past medical history significant for CAD, PAD, ischemic cardiomyopathy, as well as chronic atrial fibrillation who was admitted to the hospital with abdominal discomfort and was diagnosed with an incarcerated hernia where the patient underwent release of small bowel. Patient is postop day #1; he relates his pain is improved but still having significant nausea without vomiting; has not passed any flatus; no chest pain or shortness of breath Cardiology is following patient; patient has been transitioned from IV Lasix to oral at the home dose Objective - Vital Signs Vital signs: Vital Signs Temp 97.8 F 09/30/17 08:23 Pulse 94 09/30/17 08:34 Resp 18 09/30/17 08:23 BP 109/75 09/30/17 08:23 Pulse Ox 95 09/30/17 08:23 Intake & Output 09/29/17 09/30/17 09/30/17 18:59 06:59 18:59 Intake Total 1950 200 240 Output Total 1000 750 Balance 950 -550 240 Weight 73.482 kg 72.076 kg Intake: IV 1950 Intake, IV Titration 200 Amount Magnesium Sulfate-D5w Pmx 200 1 gm In Dextrose/Water 1 100ml.bag @ 100 mls/hr IVPB Q1H MARY BETH Rx#: [id number] Oral 240 Output: Urine 950 750 Estimated Blood Loss 50 Other: Voiding Method Indwelling Catheter Urinal Urinal # Voids 2 - Exam - Constitutional General appearance: Present: average body habitus, cooperative, no acute distress - EENT Eyes: Present: anicteric sclerae, EOMI, PERRLA, normal appearance ENT: Present: hearing grossly normal, normal oropharynx Ears: bilateral: normal - Neck Neck: Present: normal ROM. Absent: lymphadenopathy, rigidity, thyromegaly Carotids: negative: bruit present Thyroid: bilateral: normal size, negative: enlarged, nodule - Respiratory Respiratory: bilateral: CTA, negative: rales, rhonchi, wheezing - Cardiovascular Rhythm: regular Heart sounds: normal: S1, S2 Abnormal Heart Sounds: Absent: systolic murmur, diastolic murmur General gastrointestinal: Present: decreased bowel sounds, soft (Roughly distended) Localized gastrointestinal: surgical scar: RUQ (Dressing is intact with a small amount of old dried blood) - Genitourinary Genitourinary Comment(s): deferred - Integumentary Integumentary: Present: normal turgor. Absent: jaundiced, rash, ulcer - Neurologic Neurologic: Present: CNII-XII intact. Absent: focal deficits - Musculoskeletal Musculoskeletal: Present: gait normal, strength equal bilaterally - Psychiatric Psychiatric: Present: A&O x's 3, appropriate affect, intact judgment & insight - Labs CBC & Chem 7: 10/01/17 05:45 10/01/17 05:45 Labs: Abnormal Lab Results - Last 24 Hours (Table) 09/29/17 09/30/17 09/30/17 Range/Units 21:33 01:17 05:49 WBC (3.8-10.6) k/uL Neutrophils # (1.3-7.7) k/uL Lymphocytes # (1.0-4.8) k/uL Sodium 135 L (137-145) mmol/L Chloride 96 L (98-107) mmol/L Carbon Dioxide 32 H (22-30) mmol/L Glucose 112 H (74-99) mg/dL POC Glucose (mg/dL) 131 H (75-99) mg/dL Calcium 8.3 L (8.4-10.2) mg/dL Magnesium 1.5 L (1.6-2.3) mg/dL Total Bilirubin 1.6 H (0.2-1.3) mg/dL Alkaline Phosphatase 164 H (38-126) U/L Total Protein 5.1 L (6.3-8.2) g/dL Albumin 3.1 L (3.5-5.0) g/dL 09/30/17 09/30/17 09/30/17 Range/Units 05:49 06:07 11:30 WBC 12.1 H (3.8-10.6) k/uL Neutrophils # 10.5 H (1.3-7.7) k/uL Lymphocytes # 0.5 L (1.0-4.8) k/uL Sodium (137-145) mmol/L Chloride (98-107) mmol/L Carbon Dioxide (22-30) mmol/L Glucose (74-99) mg/dL POC Glucose (mg/dL) 108 H 106 H (75-99) mg/dL Calcium (8.4-10.2) mg/dL Magnesium (1.6-2.3) mg/dL Total Bilirubin (0.2-1.3) mg/dL Alkaline Phosphatase (38-126) U/L Total Protein (6.3-8.2) g/dL Albumin (3.5-5.0) g/dL Assessment and Plan Assessment: 1. Incarcerated umbilical hernia; status post bowel release with small bowel resection/her neuropathy - Patient is postoperative day #1; surgeries recommending to continue with clear liquid diet and recommending NG tube if patient starts vomiting; surgery is awaiting NG tube placement secondary to neck radiation; increase ambulation and start oral diet once patient starts passing flatus and has a bowel movement 2. Atrial fibrillation; rate controlled on beta blockers; remains on subcu Lovenox 3. Atypical chest pain 4. COPD; not in exacerbation; remains on Perforomist inhalation twice a day 5. CAD /CHF/ history of non-ST elevation [place]; stable 6. Diabetes mellitus type 2; fairly controlled with metformin; we will continue with Accu-Cheks with insulin sliding scale 7. History of PE; remains on subcu Lovenox 8. Malignant neoplasm of pharynx Time with Patient: Greater than 30
--- NOTE | 2017-10-01 10:12 | P.PN ---
Subjective Progress Note Date: 10/01/17 Principal diagnosis: Incarcerated small bowel hernia status post small bowel disease surgery; small bowel resection and umbilical herniorrhaphy This is a pleasant 62-year-old gentleman who sees Dr. VC Mayers in the office on regular basis with a past medical history significant for CAD, PAD, ischemic cardiomyopathy, as well as chronic atrial fibrillation who was admitted to the hospital with abdominal discomfort and was diagnosed with an incarcerated hernia where the patient underwent release of small bowel. Patient is postop day #1; he relates his pain is improved but still having significant nausea without vomiting; has not passed any flatus; no chest pain or shortness of breath Cardiology is following patient; patient has been transitioned from IV Lasix to oral at the home dose 10/01/2017 Patient is status post small bowel resection and umbilical herniorrhaphy; postoperative day #2 Patient is seen and evaluated in the room at bedside; denies any nausea or vomiting; hasn't been passing flatus yet but reports feeling hungry; patient's white blood count remains elevated at 12.4; blood glucose ranging between 109- 230; we will continue with insulin sliding scale per protocol Objective - Vital Signs Vital signs: Vital Signs Temp 98 F 10/01/17 07:56 Pulse 108 H 10/01/17 09:42 Resp 16 10/01/17 07:56 BP 112/64 10/01/17 07:56 Pulse Ox 93 L 10/01/17 07:56 Intake & Output 09/30/17 10/01/17 10/01/17 18:59 06:59 18:59 Intake Total 440 240 Balance 440 240 Weight 72 kg Intake: Oral 440 240 Other: Voiding Method Urinal Urinal # Voids 1 1 - Labs CBC & Chem 7: 10/01/17 05:45 10/01/17 05:45 Labs: Abnormal Lab Results - Last 24 Hours (Table) 09/30/17 09/30/17 09/30/17 Range/Units 11:30 17:00 20:40 WBC (3.8-10.6) k/uL Neutrophils # (1.3-7.7) k/uL Lymphocytes # (1.0-4.8) k/uL Sodium (137-145) mmol/L Chloride (98-107) mmol/L Glucose (74-99) mg/dL POC Glucose (mg/dL) 106 H 129 H 136 H (75-99) mg/dL 10/01/17 10/01/17 10/01/17 Range/Units 05:45 05:45 05:48 WBC 12.4 H (3.8-10.6) k/uL Neutrophils # 10.7 H (1.3-7.7) k/uL Lymphocytes # 0.5 L (1.0-4.8) k/uL Sodium 133 L (137-145) mmol/L Chloride 95 L (98-107) mmol/L Glucose 109 H (74-99) mg/dL POC Glucose (mg/dL) 230 H (75-99) mg/dL Assessment and Plan Assessment: 1. Incarcerated umbilical hernia; status post bowel release with small bowel resection/her neuropathy - Patient is postoperative day #2; surgeries recommending to continue with clear liquid diet and advance as tolerated ; recommending NG tube if patient starts vomiting; surgery is awaiting NG tube placement secondary to neck radiation; increase ambulation and start oral diet once patient starts passing flatus and has a bowel movement 2. Atrial fibrillation; rate controlled on beta blockers; remains on subcu Lovenox 3. Atypical chest pain 4. COPD; not in exacerbation; remains on Perforomist inhalation twice a day 5. CAD /CHF/ history of non-ST elevation [place]; stable 6. Diabetes mellitus type 2; fairly controlled with metformin; we will continue with Accu-Cheks with insulin sliding scale 7. History of PE; remains on subcu Lovenox 8. Malignant neoplasm of pharynx Disposition; surgery is recommending possible discharge in next 24-48 hours if he continues to tolerate diet Time with Patient: Greater than 30
--- NOTE | 2017-10-01 11:27 | P.PN ---
Subjective Progress Note Date: 10/01/17 Principal diagnosis: CAD/PAD This is a pleasant 62-year-old gentleman who sees Dr. VC Mayers in the office on regular basis with a past medical history significant for CAD, PAD, ischemic cardiomyopathy, as well as chronic atrial fibrillation who was admitted to the hospital with abdominal discomfort and was diagnosed with an incarcerated hernia where the patient underwent release of small bowel. From a cardiovascular standpoint of view, the patient is doing good. He denies having any chest pain or chest discomfort. No shortness of breath. No dizziness or lightheadedness. The heart rate continues to be slightly uncontrolled on the current dose of metoprolol. I would increase the dose of metoprolol and continue monitor the heart rate. Lovenox was restarted. Objective - Vital Signs Vital signs: Vital Signs Temp 98 F 10/01/17 07:56 Pulse 108 H 10/01/17 09:42 Resp 16 10/01/17 07:56 BP 112/64 10/01/17 07:56 Pulse Ox 93 L 10/01/17 07:56 Intake & Output 09/30/17 10/01/17 10/01/17 18:59 06:59 18:59 Intake Total 440 240 Balance 440 240 Weight 72 kg Intake: Oral 440 240 Other: Voiding Method Urinal Urinal # Voids 1 1 - Constitutional General appearance: Present: no acute distress - Respiratory Respiratory: bilateral: diminished - Cardiovascular Rhythm: irregularly irregular Heart sounds: normal: S1, S2 - Labs CBC & Chem 7: 10/01/17 05:45 10/01/17 05:45 Labs: Abnormal Lab Results - Last 24 Hours (Table) 09/30/17 09/30/17 09/30/17 Range/Units 11:30 17:00 20:40 WBC (3.8-10.6) k/uL Neutrophils # (1.3-7.7) k/uL Lymphocytes # (1.0-4.8) k/uL Sodium (137-145) mmol/L Chloride (98-107) mmol/L Glucose (74-99) mg/dL POC Glucose (mg/dL) 106 H 129 H 136 H (75-99) mg/dL 10/01/17 10/01/17 10/01/17 Range/Units 05:45 05:45 05:48 WBC 12.4 H (3.8-10.6) k/uL Neutrophils # 10.7 H (1.3-7.7) k/uL Lymphocytes # 0.5 L (1.0-4.8) k/uL Sodium 133 L (137-145) mmol/L Chloride 95 L (98-107) mmol/L Glucose 109 H (74-99) mg/dL POC Glucose (mg/dL) 230 H (75-99) mg/dL Assessment and Plan Assessment: assessment #1 status post hernia surgery #2 chronic A. fib with uncontrolled heart rate #3 CAD #4 PAD #5 multiple comorbid conditions plan #1 increase the dose of metoprolol for better heart rate control #2 follow-up with the patient.
[2017-10-01 11:33] LABS: Glucose,Whole Blood 107 mg/dL (75-99)
[2017-10-01] MEDS ORDERED: HYDROcodone/APAP 5-325MG 1 EACH TAB PO PRN ×2 (11:36)
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
[2017-10-01 16:24] LABS: Glucose,Whole Blood 182 mg/dL (75-99)
[2017-10-01 20:49] LABS: Glucose,Whole Blood 128 mg/dL (75-99)
[2017-10-02] MEDS: HYDROmorphone 1 MG/ML 1 ML SYRINGE IVP PRN ×3 (01:03→06:57)
[2017-10-02 06:45] LABS: Basophils % (A) 0 %; Eosinophils # (A) 0.1 k/uL (0-0.7); Eosinophils % (A) 1 %; HCT 43.8 % (39.0-53.0); HGB 13.8 gm/dL (13.0-17.5); Lymphocytes # (A) 0.3 k/uL (1.0-4.8); Lymphocytes % (A) 3 %; MCH 29.5 pg (25.0-35.0); MCHC 31.6 g/dL (31.0-37.0); MCV 93.3 fL (80.0-100.0); Monocytes # (A) 0.9 k/uL (0-1.0); Monocytes % (A) 10 %; Neutrophils # (A) 8.3 k/uL (1.3-7.7); Neutrophils % (A) 84 %; Platelet Count 218 k/uL (150-450); RBC 4.69 m/uL (4.30-5.90); RDW 14.6 % (11.5-15.5); WBC 9.8 k/uL (3.8-10.6)
[2017-10-02 06:55] LABS: Anion Gap 9 mmol/L; Blood Urea Nitrogen 17 mg/dL (9-20); Calcium 8.3 mg/dL (8.4-10.2); Carbon Dioxide 31 mmol/L (22-30); Chloride 96 mmol/L (98-107); Glucose 108 mg/dL (74-99); Potassium 4.7 mmol/L (3.5-5.1); Sodium 136 mmol/L (137-145)
[2017-10-02 07:04] LABS: Glucose,Whole Blood 104 mg/dL (75-99)
[2017-10-02] MEDS ORDERED: PANTOPRAZOLE 40 MG TABLET PO SCH (07:30)
[2017-10-02] MEDS: IPRATROPIUM-ALBUTEROL 3 ML NEB INHALATION SCH ×2 (07:41→11:17)
[2017-10-02] MEDS: BUDESONIDE 1 MG/2 ML NEBU INHALATION SCH (07:41)
[2017-10-02] MEDS: FORMOTEROL FUMARATE 20 MCG/2 ML NEBU INHALATION SCH (07:41)
[2017-10-02] MEDS: INSULIN ASPART 100 UNIT/ML 1 ML 10 ML VIAL SQ SCH ×2 (08:26→13:04)
[2017-10-02] MEDS: METOPROLOL TARTRATE 50 MG TAB PO SCH (08:28)
[2017-10-02] MEDS: ENOXAPARIN 40 MG/0.4 ML SYRINGE SQ SCH (08:28)
[2017-10-02] MEDS: metFORMIN 500 MG TAB PO SCH (08:28)
[2017-10-02] MEDS: SPIRONOLACTONE 25 MG TAB PO SCH (08:28)
[2017-10-02] MEDS: FUROSEMIDE 40 MG TAB PO SCH (08:29)
[2017-10-02] MEDS: ISOSORBIDE MONONITRATE ER 30 MG TAB.ER.24H PO SCH (08:29)
[2017-10-02 08:53] VITALS: BP 116/61; TEMP 97
[2017-10-02 11:26] VITALS: PULSE 89
[2017-10-02 11:37] LABS: Glucose,Whole Blood 129 mg/dL (75-99)
--- NOTE | 2017-10-02 13:18 | P.PN ---
Subjective Progress Note Date: 10/02/17 Patient is doing very well. He had a bowel movement. He is tolerating his diet. Vital signs are stable afebrile Objective - Vital Signs Vital signs: Vital Signs Temp 97.0 F L 10/02/17 08:20 Pulse 89 10/02/17 11:26 Resp 16 10/02/17 08:20 BP 116/61 10/02/17 08:20 Pulse Ox 94 L 10/02/17 08:20 Intake & Output 10/01/17 10/02/17 10/02/17 18:59 06:59 18:59 Intake Total 480 100 118 Output Total 100 Balance 380 100 118 Weight 72 kg Intake: Oral 480 100 118 Output: Urine 100 Other: Voiding Method Urinal # Voids 1 1 # Bowel Movements 1 - Constitutional General appearance: Present: cooperative - Cardiovascular Rhythm: regular - Gastrointestinal Gastrointestinal Comment(s): Soft nontender nondistended incisions clean dry and intact - Psychiatric Psychiatric: Present: A&O x's 3 - Labs CBC & Chem 7: 10/02/17 06:30 10/02/17 06:30 Labs: Abnormal Lab Results - Last 24 Hours (Table) 10/01/17 10/01/17 10/02/17 Range/Units 16:23 20:47 06:30 Neutrophils # 8.3 H (1.3-7.7) k/uL Lymphocytes # 0.3 L (1.0-4.8) k/uL Sodium (137-145) mmol/L Chloride (98-107) mmol/L Carbon Dioxide (22-30) mmol/L Glucose (74-99) mg/dL POC Glucose (mg/dL) 182 H 128 H (75-99) mg/dL Calcium (8.4-10.2) mg/dL 10/02/17 10/02/17 10/02/17 Range/Units 06:30 06:58 11:35 Neutrophils # (1.3-7.7) k/uL Lymphocytes # (1.0-4.8) k/uL Sodium 136 L (137-145) mmol/L Chloride 96 L (98-107) mmol/L Carbon Dioxide 31 H (22-30) mmol/L Glucose 108 H (74-99) mg/dL POC Glucose (mg/dL) 104 H 129 H (75-99) mg/dL Calcium 8.3 L (8.4-10.2) mg/dL
--- NOTE | 2017-10-02 13:21 | P.PN ---
Subjective Progress Note Date: 10/02/17 Patient is doing very well. He had a bowel movement. He is tolerating his diet. Vital signs are stable afebrile Objective - Vital Signs Vital signs: Vital Signs Temp 97.0 F L 10/02/17 08:20 Pulse 89 10/02/17 11:26 Resp 16 10/02/17 08:20 BP 116/61 10/02/17 08:20 Pulse Ox 94 L 10/02/17 08:20 Intake & Output 10/01/17 10/02/17 10/02/17 18:59 06:59 18:59 Intake Total 480 100 118 Output Total 100 Balance 380 100 118 Weight 72 kg Intake: Oral 480 100 118 Output: Urine 100 Other: Voiding Method Urinal # Voids 1 1 # Bowel Movements 1 - Constitutional General appearance: Present: cooperative - Respiratory Details: nonlabored - Gastrointestinal Gastrointestinal Comment(s): S/ND/NT, incisions CDI - Psychiatric Psychiatric: Present: A&O x's 3 - Labs CBC & Chem 7: 10/02/17 06:30 10/02/17 06:30 Labs: Abnormal Lab Results - Last 24 Hours (Table) 10/01/17 10/01/17 10/02/17 Range/Units 16:23 20:47 06:30 Neutrophils # 8.3 H (1.3-7.7) k/uL Lymphocytes # 0.3 L (1.0-4.8) k/uL Sodium (137-145) mmol/L Chloride (98-107) mmol/L Carbon Dioxide (22-30) mmol/L Glucose (74-99) mg/dL POC Glucose (mg/dL) 182 H 128 H (75-99) mg/dL Calcium (8.4-10.2) mg/dL 10/02/17 10/02/17 10/02/17 Range/Units 06:30 06:58 11:35 Neutrophils # (1.3-7.7) k/uL Lymphocytes # (1.0-4.8) k/uL Sodium 136 L (137-145) mmol/L Chloride 96 L (98-107) mmol/L Carbon Dioxide 31 H (22-30) mmol/L Glucose 108 H (74-99) mg/dL POC Glucose (mg/dL) 104 H 129 H (75-99) mg/dL Calcium 8.3 L (8.4-10.2) mg/dL Assessment and Plan Assessment: Status post ventral incisional hernia repair with small bowel resection Plan: Patient is tolerating diet he's having bowel movements his pain is well- controlled he may be discharged home from a surgical standpoint follow-up with Dr. Sanches in the clinic in 1-2 weeks
== END 2017-10-02 15:22 | disposition home or self-care (01) | DRG 330 ==
LOC: EC 21:15 → 3SUR 09-29 00:30 → 6ICU 09-29 10:14 → 6SEL 09-29 16:28 → 3SUR 10-01 20:37
PROVIDERS: ADMIT Hospitalist; ATTEND Hospitalist
PROC: 0DB80ZZ Excision of Small Intestine, Open Approach (ICD-10-PCS; principal; 2017-09-29 08:30)
PROC: 0WQF0ZZ Repair Abdominal Wall, Open Approach (ICD-10-PCS; principal; 2017-09-29 08:30)
DX: K42.0 Umbilical hernia with obstruction, without gangrene (principal); I50.22 Chronic systolic (congestive) heart failure; J44.1 Chronic obstructive pulmonary disease with (acute) exacerbation; K55.9 Vascular disorder of intestine, unspecified; R18.8 Other ascites; E11.51 Type 2 diabetes mellitus with diabetic peripheral angiopathy without gangrene; E78.5 Hyperlipidemia, unspecified; F17.200 Nicotine dependence, unspecified, uncomplicated; F41.9 Anxiety disorder, unspecified; I11.0 Hypertensive heart disease with heart failure; I25.10 Atherosclerotic heart disease of native coronary artery without angina pectoris; I25.2 Old myocardial infarction; I25.5 Ischemic cardiomyopathy; I48.2 Chronic atrial fibrillation; I71.2 Thoracic aortic aneurysm, without rupture; K57.90 Diverticulosis of intestine, part unspecified, without perforation or abscess without bleeding; K74.60 Unspecified cirrhosis of liver; R13.10 Dysphagia, unspecified; Z79.899 Other long term (current) drug therapy; Z83.3 Family history of diabetes mellitus; Z85.01 Personal history of malignant neoplasm of esophagus; C14.0 Malignant neoplasm of pharynx, unspecified; Z86.711 Personal history of pulmonary embolism; Z86.718 Personal history of other venous thrombosis and embolism; Z92.3 Personal history of irradiation; Z95.1 Presence of aortocoronary bypass graft; Z95.5 Presence of coronary angioplasty implant and graft; Z79.82 Long term (current) use of aspirin; Z79.4 Long term (current) use of insulin; Z88.5 Allergy status to narcotic agent; Z88.8 Allergy status to other drugs, medicaments and biological substances
CPT/HCPCS: 36415; 71045; 74176; 80048; 80053; 82150; 83036; 83605; 83690; 83735; 85025; 85610; 85730; 86850; 86900; 86901; 88307; 94640; 96361; 96374; 96375; 99285

== ENCOUNTER 2017-10-06 17:35 | Inpatient (IN) | payer OTHER ==
[2017-10-06] MEDS ORDERED: SODIUM CHLORIDE 0.9% 1,000 ML IV STA ×2 (17:48→18:05)
[2017-10-06] MEDS ORDERED: SODIUM CHLORIDE 0.9% 500 ML IV STA (17:48)
[2017-10-06] MEDS ORDERED: HEPARIN SODIUM,PORCINE 5,000 UNIT/ML 1 ML VIAL IV ONE (18:05)
[2017-10-06] MEDS ORDERED: NITROGLYCERIN SL TABS 0.4 MG TAB SUBLINGUAL PRN ×2 (18:05→21:35)
[2017-10-06] MEDS ORDERED: ASPIRIN 81 MG PO STA (18:05)
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
[2017-10-06] MEDS ORDERED: MORPHINE SULFATE 4 MG/ML SYRINGE IVP STA (18:10)
[2017-10-06] MEDS: METOPROLOL TARTRATE 5 MG/5 ML VIAL IVP STA ×2 (18:11→18:55)
[2017-10-06] MEDS ORDERED: METOPROLOL TARTRATE 5 MG/5 ML VIAL IVP STA ×2 (18:17→18:28)
[2017-10-06 18:23] LABS: Basophils % (A) 0 %; Eosinophils # (A) 0.1 k/uL (0-0.7); Eosinophils % (A) 1 %; HCT 45.8 % (39.0-53.0); Lymphocytes # (A) 0.3 k/uL (1.0-4.8); Lymphocytes % (A) 3 %; MCHC 32.7 g/dL (31.0-37.0); MCV 91.8 fL (80.0-100.0); Mean Platelet Volume 6.7; Monocytes # (A) 0.4 k/uL (0-1.0); Monocytes % (A) 4 %; Neutrophils % (A) 91 %; Platelet Count 323 k/uL (150-450); RBC 4.99 m/uL (4.30-5.90); RDW 14.5 % (11.5-15.5); WBC 9.9 k/uL (3.8-10.6)
[2017-10-06] MEDS ORDERED: LIDOCAINE 1% INJ 10MG/ML (20 ML MDV) ONE (18:24)
--- NOTE | 2017-10-06 18:30 | XR ---
EXAMINATION: XR chest 1V DATE AND TIME: 10/06/2017 6:11 PM ORDERING PROVIDER: Brandon Jacobo CLINICAL INDICATION: Chest Pain TECHNIQUE: AP upright portable COMPARISON: 09/30/2017 DESCRIPTION: Right upper extremity PICC line tip superimposes over the second position of the mid SVC. There is no pneumothorax. No pleural effusion. The lungs are clear. The cardiac silhouette is not enlarged. The skeletal structures are intact without focal findings. The soft tissues are unremarkable. IMPRESSION: NO ACUTE PROCESS.
[2017-10-06 18:33] LABS: ALT 42 U/L (21-72); AST 37 U/L (17-59); Albumin 3.2 g/dL (3.5-5.0); Alkaline Phosphatase 416 U/L (38-126); Anion Gap 11 mmol/L; Blood Urea Nitrogen 14 mg/dL (9-20); Calcium 8.8 mg/dL (8.4-10.2); Carbon Dioxide 25 mmol/L (22-30); Chloride 100 mmol/L (98-107); Glucose 137 mg/dL (74-99); Potassium 4.8 mmol/L (3.5-5.1); Sodium 136 mmol/L (137-145); Total Bilirubin 1.2 mg/dL (0.2-1.3); Total Protein 5.9 g/dL (6.3-8.2)
[2017-10-06] MEDS: HEPARIN SOD,PORK IN 0.45% NACL 25,000 UNIT in 0.45% NACL 1 500ML.BAG IV SCH (18:33)
[2017-10-06] MEDS ORDERED: DILTIAZEM DRIP BOLUS FROM BAG 1 MG SOLN IV ONE (18:43)
[2017-10-06] MEDS ORDERED: MORPHINE SULFATE 2 MG/ML SYRINGE IVP PRN (18:43)
[2017-10-06 18:53] LABS: INR 1.1 (<1.2); Partial Thromboplastin Time 26.7 sec (22.0-30.0)
[2017-10-06] MEDS: DILTIAZEM 50 MG in SODIUM CHLORIDE 0.9% 40 ML IV SCH (18:55)
[2017-10-06 19:06] LABS: Creatine Kinase MB 2.2 ng/mL (0.0-2.4); Troponin I 0.02 ng/mL (0.000-0.034)
[2017-10-06 20:03] LABS: Magnesium 1.7 mg/dL (1.6-2.3)
--- NOTE | 2017-10-06 20:31 | CT ---
EXAMINATION TYPE: CT angio chest with contrast and with 3-D reconstruction renderings DATE OF EXAM: 10/06/2017 7:59 PM COMPARISON: 03/05/2017 HISTORY: Post OP hernia repair and bowel resection [address] DLP: 291 mGycm Automated exposure control for dose reduction was used. CONTRAST: CTA scan of the thorax is performed with IV Contrast, patient injected with 100 mL of Isovue 300, pul monary embolism protocol. 3-D reconstructions. FINDINGS: AIRWAYS: Unremarkable. LUNGS: The lungs are grossly clear, there is no concerning parenchymal mass or nodule identified. PLEURAL SPACES: There is no pleural effusion or pneumothorax seen. MEDIASTINUM: There is satisfactory enhancement of the pulmonary artery and its branches, there is no CT evidence for pulmonary embolism. The pulmonary arterial tree is prominent in caliber to a mild deg ree, which can correspond with the clinical diagnosis of pulmonary hypertension. [id number] car diomegaly with panchamber enlargement. Prominent and extensive left and right coronary calcifications are noted. Pericardial space is negative. Hilar and mediastinal calcifications are noted, consistent with healed granulomatous process -with associated multifocal splenic and hepatic calcifications als o noted. There is no hilar or mediastinal adenopathy. SKELETAL STRUCTURES: Unremarkable. OTHER: There is a moderate plus volume of peritoneal fluid within the right and left upper quadrants . IMPRESSION: 1. NO ACUTE THORACIC PROCESS. 2. RIGHT AND LEFT UPPER QUADRANT PERITONEAL FLUID.
[2017-10-06] MEDS ORDERED: METOPROLOL TARTRATE 25 MG TAB PO SCH (21:00)
[2017-10-06] MEDS ORDERED: CYCLOBENZAPRINE 10 MG TAB PO PRN (21:35)
[2017-10-06] MEDS ORDERED: ALBUTEROL NEBULIZED 2.5 MG/3 ML INHALATION PRN (21:35)
--- NOTE | 2017-10-06 21:51 | CT ---
EXAMINATION TYPE: CT abdomen pelvis w con DATE OF EXAM: 10/06/2017 COMPARISON: CT 09/28/2017 HISTORY: Post OP hernia repair and bowel resection [address] DLP: 1850.5 mGycm Automated exposure control for dose reduction was used. TECHNIQUE: Helical acquisition of images was performed from the lung bases through the pelvis. CONTRAST: Performed without Oral Contrast and with IV Contrast, patient injected with 100 mL of Isovue 300. FINDINGS: FINDINGS CONSISTENT WITH CIRRHOSIS: These findings are unaltered. The caudate lobe is enlarged. The l iver margins are diffusely scalloped. There is a marked volume of simple-appearing peritoneal fluid t hroughout the abdomen and pelvis. ANTERIOR ABDOMINAL WALL FINDINGS: New since the prior study are transverse-oriented surgical cutaneou s gloria noted in the supraumbilical position. Immediately deep to the gloria, within the subcutane ous adipose compartment, is a 9 cm transverse x 6 cm CC x 3 cm AP fluid collection with gas bubbles. Also, immediately cephalad to this fluid collection, there appear to be herniated loops of incarcera iliana bowel which does not appear strangulated at this time. What is bowel versus peritoneal fluid vers us fluid collection can be best ascertained using oral contrast CT. There is no evidence of bowel obs truction is time IMPRESSION: 1. SUBCUTANEOUS FLUID COLLECTION MEASURING 9 X 6 X 3 CM. 2. SUSPECT HERNIATED/INCARCERATED BOWEL LOOPS, BUT DIFFICULT VISUALIZATION.
[2017-10-06] MEDS ORDERED: ATORVASTATIN 80 MG TAB ONE (23:00)
[2017-10-06] MEDS ORDERED: HYDROcodone/APAP 10-325MG 1 EACH TAB ONE (23:00)
[2017-10-06] MEDS ORDERED: metFORMIN 500 MG TAB ONE (23:00)
[2017-10-06] MEDS ORDERED: METOPROLOL TARTRATE 50 MG TAB ONE (23:00)
[2017-10-07 04:00] LABS: Creatine Kinase MB 1.6 ng/mL (0.0-2.4); Troponin I 0.028 ng/mL (0.000-0.034)
[2017-10-07] MEDS: metFORMIN 500 MG TAB PO SCH ×4 (05:12→21:14)
[2017-10-07] MEDS: METOPROLOL TARTRATE 50 MG TAB PO SCH ×4 (05:12→21:14)
[2017-10-07] MEDS: ATORVASTATIN 80 MG TAB PO SCH ×2 (05:12→21:13)
[2017-10-07 06:12] LABS: Glucose,Whole Blood 88 mg/dL (75-99)
[2017-10-07] MEDS: INSULIN ASPART 100 UNIT/ML 1 ML 10 ML VIAL SQ SCH ×4 (06:16→22:11)
[2017-10-07] MEDS: PANTOPRAZOLE 40 MG TABLET PO SCH (06:51)
[2017-10-07] MEDS: HYDROcodone/APAP 10-325MG 1 EACH TAB PO PRN ×2 (06:54→11:14)
[2017-10-07 07:13] LABS: Basophils % (A) 0 %; Eosinophils # (A) 0.1 k/uL (0-0.7); Eosinophils % (A) 1 %; HGB 13.9 gm/dL (13.0-17.5); Lymphocytes # (A) 0.4 k/uL (1.0-4.8); Lymphocytes % (A) 5 %; MCH 29.3 pg (25.0-35.0); MCHC 31.5 g/dL (31.0-37.0); Monocytes # (A) 0.7 k/uL (0-1.0); Monocytes % (A) 9 %; Neutrophils # (A) 7.2 k/uL (1.3-7.7); Neutrophils % (A) 83 %; Platelet Count 303 k/uL (150-450); RBC 4.73 m/uL (4.30-5.90); RDW 14.5 % (11.5-15.5); WBC 8.7 k/uL (3.8-10.6)
[2017-10-07 07:49] LABS: Anion Gap 8 mmol/L; Blood Urea Nitrogen 13 mg/dL (9-20); Calcium 8.6 mg/dL (8.4-10.2); Carbon Dioxide 26 mmol/L (22-30); Chloride 103 mmol/L (98-107); Cholesterol 107 mg/dL (<200); Glucose 85 mg/dL (74-99); HDL Cholesterol 27 mg/dL (40-60); LDL Cholesterol,Calculated 65 mg/dL (0-99); Potassium 4.8 mmol/L (3.5-5.1); Sodium 137 mmol/L (137-145); Triglycerides 73 mg/dL (<150)
[2017-10-07] MEDS: IPRATROPIUM-ALBUTEROL 3 ML NEB INHALATION PRN ×2 (07:57→11:20)
[2017-10-07 08:00] LABS: Creatine Kinase MB 1.7 ng/mL (0.0-2.4); Troponin I 0.028 ng/mL (0.000-0.034)
[2017-10-07] MEDS: DILTIAZEM 50 MG in SODIUM CHLORIDE 0.9% 40 ML IV SCH (08:13)
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
[2017-10-07] MEDS: ISOSORBIDE MONONITRATE ER 30 MG TAB.ER.24H PO SCH (08:53)
[2017-10-07] MEDS: LISINOPRIL 5 MG TAB PO SCH (08:53)
[2017-10-07] MEDS: SPIRONOLACTONE 25 MG TAB PO SCH ×2 (08:53→21:14)
[2017-10-07] MEDS: FUROSEMIDE 40 MG TAB PO SCH ×2 (08:53→15:00)
[2017-10-07] MEDS: MAGNESIUM SULFATE-D5W PMX 1 GM in DEXTROSE/WATER 1 100ML.BAG IVPB SCH ×2 (08:53→10:06)
[2017-10-07] MEDS: ASPIRIN 81 MG PO SCH (08:53)
[2017-10-07] MEDS ORDERED: ASPIRIN 325 MG TAB PO SCH (09:00)
[2017-10-07] MEDS ORDERED: ASPIRIN 81 MG PO SCH (09:00)
[2017-10-07] MEDS ORDERED: LIDOCAINE (PF) 10 MG/ML 5ML AMP SQ STA (09:35)
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
--- NOTE | 2017-10-07 10:14 | P.PCN ---
Date of Procedure: 10/07/17 Preoperative Diagnosis: Seroma Postoperative Diagnosis: Possible infected seroma Procedure(s) Performed: Fine-needle aspiration Anesthesia: local Surgeon: Vy Sanches Estimated Blood Loss (ml): 0 Pathology: other (Culture sent) Condition: stable Description of Procedure: Patient was given informed consent. The skin was cleansed with alcohol swab. Local, 1% lidocaine, was infiltrated into the skin and subcutaneous tissues. An 18-gauge needle was then used to aspirate about 25 mL's of reddish fluid which was slightly cloudy. Cultures were obtained. A dressing was applied. He tolerated the procedure without difficulty. I'll start him on antibiotics pending cultures
[2017-10-07] MEDS ORDERED: ceFAZolin 2,000 MG in DEXTROSE/WATER 1 50ML.BAG IVPB SCH (10:15)
[2017-10-07] MEDS: ceFAZolin IN SWFI 2 GM/20 ML SYRINGE IVP SCH ×3 (10:34→23:48)
[2017-10-07] MEDS: metroNIDAZOLE-NS PMX 500 MG in SALINE 1 100ML.BAG IVPB SCH ×3 (10:35→23:47)
[2017-10-07 11:40] LABS: Glucose,Whole Blood 156 mg/dL (75-99)
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
[2017-10-07] MEDS: HEPARIN SODIUM,PORCINE 5,000 UNIT/ML 1 ML VIAL IV PRN ×2 (16:00→21:14)
[2017-10-07 16:26] LABS: Glucose,Whole Blood 127 mg/dL (75-99)
[2017-10-07] MEDS: ALBUTEROL NEBULIZED 2.5 MG/3 ML INHALATION PRN ×2 (16:27→19:32)
[2017-10-07 20:57] LABS: Glucose,Whole Blood 126 mg/dL (75-99)
[2017-10-07] MEDS: MORPHINE ORAL SOLN 10 MG/5 ML CUP PO PRN (21:15)
[2017-10-07] MEDS: HEPARIN SOD,PORK IN 0.45% NACL 25,000 UNIT in 0.45% NACL 1 500ML.BAG IV SCH (21:17)
[2017-10-08 03:10] LABS: Platelet Count 289 k/uL (150-450)
[2017-10-08] MEDS: MORPHINE ORAL SOLN 10 MG/5 ML CUP PO PRN ×3 (04:31→16:02)
[2017-10-08] MEDS: HEPARIN SODIUM,PORCINE 5,000 UNIT/ML 1 ML VIAL IV PRN (04:31)
[2017-10-08 06:21] LABS: Glucose,Whole Blood 107 mg/dL (75-99)
[2017-10-08] MEDS: INSULIN ASPART 100 UNIT/ML 1 ML 10 ML VIAL SQ SCH ×4 (06:55→21:05)
[2017-10-08] MEDS: metFORMIN 500 MG TAB PO SCH ×3 (06:56→21:20)
[2017-10-08] MEDS: PANTOPRAZOLE 40 MG TABLET PO SCH (06:56)
[2017-10-08] MEDS: IPRATROPIUM-ALBUTEROL 3 ML NEB INHALATION PRN ×4 (08:19→21:46)
[2017-10-08] MEDS: HEPARIN SOD,PORK IN 0.45% NACL 25,000 UNIT in 0.45% NACL 1 500ML.BAG IV SCH (09:27)
[2017-10-08] MEDS: metroNIDAZOLE-NS PMX 500 MG in SALINE 1 100ML.BAG IVPB SCH ×2 (09:28→16:02)
[2017-10-08] MEDS: FUROSEMIDE 40 MG TAB PO SCH ×2 (09:41→16:02)
[2017-10-08] MEDS: LISINOPRIL 5 MG TAB PO SCH (09:41)
[2017-10-08] MEDS: ISOSORBIDE MONONITRATE ER 30 MG TAB.ER.24H PO SCH (09:41)
[2017-10-08] MEDS: ASPIRIN 81 MG PO SCH (09:41)
[2017-10-08] MEDS: METOPROLOL TARTRATE 50 MG TAB PO SCH ×3 (09:41→21:20)
[2017-10-08] MEDS: SPIRONOLACTONE 25 MG TAB PO SCH ×2 (09:41→21:20)
--- NOTE | 2017-10-08 10:27 | P.PN ---
Subjective Progress Note Date: 10/08/17 Principal diagnosis: Status post umbilical hernia repair, seroma The patient is feeling better today. Continuing have some abdominal pain. Objective - Vital Signs Vital signs: Vital Signs Temp 98.4 F 10/08/17 08:00 Pulse 77 10/08/17 08:29 Resp 16 10/08/17 08:00 BP 94/54 10/08/17 08:00 Pulse Ox 94 L 10/08/17 08:00 Intake & Output 10/07/17 10/08/17 10/08/17 18:59 06:59 18:59 Intake Total 901.825 5431.115 301.995 Output Total 400 200 Balance 347.038 936.115 301.995 Weight 67 kg 73.6 kg Intake: Intake, IV Titration 885.391 7212.115 181.995 Amount Heparin Sod,Pork in 0.45% 387.038 336.115 181.995 NaCl 25,000 unit In 0.45 % NaCl 1 500ml.bag @ 12 UNITS/KG/HR 17.96 mls/hr IV .Q24H [facility] Rx#: [id number] Sodium Chloride 0.9% 1, 800 000 ml @ 100 mls/hr IV . Q10H [facility] Rx#:[id number] Oral 360 120 Output: Urine 400 200 Other: Voiding Method Urinal Urinal Urinal # Voids 1 - Constitutional General appearance: Present: cooperative, no acute distress - Gastrointestinal General gastrointestinal: Present: distended (Significant ascites is present today), normal bowel sounds Localized gastrointestinal: surgical scar: epigastric periumbilical (The incision is well approximated. No evidence of cellulitis. No evidence of recurrent seroma.) - Labs CBC & Chem 7: 10/08/17 02:48 10/07/17 06:58 Labs: Abnormal Lab Results - Last 24 Hours (Table) 10/07/17 10/07/17 10/07/17 Range/Units 11:36 15:03 16:23 APTT 31.5 H (22.0-30.0) sec POC Glucose (mg/dL) 156 H 127 H (75-99) mg/dL 10/07/17 10/07/17 10/08/17 Range/Units 19:57 20:56 02:48 APTT 39.2 H 38.4 H (22.0-30.0) sec POC Glucose (mg/dL) 126 H (75-99) mg/dL 10/08/17 Range/Units 06:20 APTT (22.0-30.0) sec POC Glucose (mg/dL) 107 H (75-99) mg/dL Microbiology - Last 24 Hours (Table) 10/07/17 10:06 Gram Stain - Preliminary Aspirate Body Fluid Culture - Preliminary 10/07/17 10:05 Anaerobic Culture - Preliminary Incision Assessment and Plan (1) Seroma after procedure Current Visit: Yes Status: Acute Code(s): JTJ5762 - SNOMED Code(s): 785375928282500 (2) Atrial fibrillation with RVR Current Visit: Yes Status: Acute Code(s): I48.91 - UNSPECIFIED ATRIAL FIBRILLATION SNOMED Code(s): 423541529523207 (3) COPD exacerbation Current Visit: Yes Status: Acute Code(s): J44.1 - CHRONIC OBSTRUCTIVE PULMONARY DISEASE W (ACUTE) EXACERBATION SNOMED Code(s): 946606696487414 (4) Ascites Current Visit: No Status: Chronic Code(s): R18.8 - OTHER ASCITES SNOMED Code(s): 913967493 (5) Atrial fibrillation Current Visit: No Status: Chronic Code(s): I48.91 - UNSPECIFIED ATRIAL FIBRILLATION SNOMED Code(s): 06002024 (6) History of pulmonary embolism Current Visit: No Status: Resolved Code(s): Z86.711 - PERSONAL HISTORY OF PULMONARY EMBOLISM SNOMED Code(s): 437312116 Plan: Culture of the stroma is negative to date. I would continue him on antibiotics until we have a negative culture. He has developed significant ascites and typically gets paracentesis done on a regular basis. I'll order that for him today. Currently nonsurgical
[2017-10-08] MEDS: ceFAZolin IN SWFI 2 GM/20 ML SYRINGE IVP SCH ×2 (10:39→17:53)
[2017-10-08 11:56] LABS: Glucose,Whole Blood 112 mg/dL (75-99)
--- NOTE | 2017-10-08 13:46 | PN ---
PROGRESS NOTE Mr. Monet is a 62-year-old male with known history of severe ischemic cardiomyopathy, status post percutaneous revascularization, chronic persistent atrial fibrillation, recurring ascites who presented with abdominal and lower chest discomfort. He is feeling better in that regard. He has underwent drainage of seroma and is scheduled for possible thoracentesis. He denies any symptoms of chest discomfort. His breathing is stable according to him. He denies any dizziness or palpitation. He denies any nausea. The patient has been anticoagulated with Lovenox as an outpatient because of the frequent paracenteses that he was undergoing. He continues to be at this time on aspirin 81 mg daily, furosemide 40 mg q.12 hours, heparin, lisinopril 5 mg daily, metformin 1 gram at bedtime, 500 mg twice a day, metoprolol tartrate 50 mg 3 times a day and spironolactone 25 mg twice a day. PHYSICAL EXAMINATION: Blood pressure in the low 100 with the heart rate in the 80s. LUNGS: Clear. HEART: Irregular, irregular S1, S2. No S3. No rub. ABDOMEN: Soft, distended. Kristyn noted. EXTREMITIES: No edema. LAB DATA: Lab data revealed BUN and creatinine 13 and 0.56. Potassium 4.8. Hemoglobin 13.9. His LDL of 65. IMPRESSION: 1. Abdominal discomfort, status post recent incarcerated umbilical hernia surgery. 2. Recurrent ascites. 3. Chronic persistent atrial fibrillation. 4. History of ischemic cardiomyopathy. RECOMMENDATION: From the cardiac standpoint, we will continue present therapy. Once the patient has a thoracentesis, he will be switched back to his Lovenox and his level of activity will be increased and if he is stable I am hopeful that he should be able to be discharged home soon. MMODL / IJN: [id number] /
[2017-10-08 17:11] LABS: Glucose,Whole Blood 132 mg/dL (75-99)
[2017-10-08 20:59] LABS: Glucose,Whole Blood 119 mg/dL (75-99)
--- NOTE | 2017-10-08 21:04 | PN ---
PROGRESS NOTE DATE OF SERVICE: 10/08/2017 This 62-year-old gentleman who was admitted with abdominal pain, atypical chest pain. The patient apparently has ascites, also. The patient has frequent paracentesis. The patient also had recent incarcerated umbilical hernia repair as well. PAST MEDICAL HISTORY: Reviewed. REVIEW OF SYSTEMS: CARDIOVASCULAR: No angina. RESPIRATORY: As mentioned earlier. GI: As mentioned earlier. : As mentioned earlier. NERVOUS: No numbness, weakness. CURRENT MEDICATIONS: Reviewed, include: 1. [place] 10 mg q.4h p.r.n. 2. Ventolin. 3. DuoNeb q.i.d. 4. Lipitor 80 mg q.h.s. 5. Keflex 2 g IV q.8. 6. Flexeril. 7. Lasix 40 b.i.d. 8. Heparin. 9. NovoLog. 10.Imdur 30 mg. 11.Zestril 5 mg. 12.Metformin 1000 mg q.h.s. 13.Glucophage 500 mg p.o. b.i.d. 14.Lopressor 50 mg p.o. t.i.d. 15.Flagyl 500 mg IV q.8h. 16.Nitrostat. 17.Protonix. 18.Aldactone. PHYSICAL EXAM: Patient is alert, oriented x3. Pulse is 106, blood pressure 103/66, respirations 20, temperature 98.4, pulse ox is 94% on room air. HEENT: Conjunctivae normal. Oral mucosa moist. NECK: No jugular venous distention. No carotid bruits. No lymph node enlargement. CARDIOVASCULAR: S1, S2 muffled. RESPIRATORY: Breath sounds diminished in the bases. A few scattered rhonchi and crackles. ABDOMEN: Soft, mild diffuse distension, status post recent surgery. Otherwise, ascites present. LEGS: Bilateral leg edema. NERVOUS SYSTEM: Diffusely weak. LAB INVESTIGATIONS: At this time shows WBC 8.6, hemoglobin is 13.9. Glucose 132 is 27. ASSESSMENT: 1. Abdominal pain with infected seroma and surgical site from umbilical hernia surgery. 2. Recurrent ascites for frequent paracentesis. 3. History of recent incarcerated umbilical hernia repair. 4. Chest pain, atypical coronary syndrome. 5. Atrial fibrillation with rapid ventricular rate. 6. Persistent atrial fibrillation. 7. History of coronary artery disease, myocardial infarction and stent. 8. Cardiomyopathy, ejection fraction 20%-25%. 9. Ischemic cardiomyopathy. 10.Chronic obstructive pulmonary disease. 11.History of nicotine dependence. 12.Peripheral vascular disease. 13.History of pulmonary embolism. 14.Diabetes mellitus type 2. 15.Hypertension. 16.Hyperlipidemia. 17.Hypomagnesemia. RECOMMENDATIONS AND DISCUSSION: Recommend to continue current medical management and symptomatic treatment. Otherwise, we will follow closely with Cardiology as well as Surgery. Recommend repeat labs in the morning. Other than that, continue the conservative line of management, possible ascitic aspiration. Guarded prognosis because of multiple complex medical issues. See orders for further details. Further recommendations to follow. MMODL / IJN: [id number] / ALFRED
[2017-10-08] MEDS: ATORVASTATIN 80 MG TAB PO SCH (21:20)
[2017-10-09] MEDS: ceFAZolin IN SWFI 2 GM/20 ML SYRINGE IVP SCH ×2 (00:27→08:19)
[2017-10-09] MEDS: metroNIDAZOLE-NS PMX 500 MG in SALINE 1 100ML.BAG IVPB SCH ×2 (00:28→08:17)
[2017-10-09 03:01] LABS: Basophils % (A) 0 %; Eosinophils # (A) 0.1 k/uL (0-0.7); Eosinophils % (A) 1 %; HGB 12.1 gm/dL (13.0-17.5); Lymphocytes # (A) 0.2 k/uL (1.0-4.8); Lymphocytes % (A) 2 %; MCH 29.4 pg (25.0-35.0); MCHC 31.8 g/dL (31.0-37.0); MCV 92.4 fL (80.0-100.0); Mean Platelet Volume 7.2; Monocytes # (A) 0.3 k/uL (0-1.0); Monocytes % (A) 3 %; Neutrophils % (A) 93 %; Platelet Count 290 k/uL (150-450); RBC 4.11 m/uL (4.30-5.90); RDW 14.6 % (11.5-15.5); WBC 9.8 k/uL (3.8-10.6)
[2017-10-09 03:46] LABS: Anion Gap 10 mmol/L; Blood Urea Nitrogen 19 mg/dL (9-20); Calcium 8.4 mg/dL (8.4-10.2); Carbon Dioxide 21 mmol/L (22-30); Chloride 100 mmol/L (98-107); Glucose 106 mg/dL (74-99); Potassium 4.7 mmol/L (3.5-5.1); Sodium 131 mmol/L (137-145)
[2017-10-09 05:57] LABS: Glucose,Whole Blood 121 mg/dL (75-99)
[2017-10-09] MEDS: INSULIN ASPART 100 UNIT/ML 1 ML 10 ML VIAL SQ SCH ×4 (06:14→20:57)
[2017-10-09] MEDS: metFORMIN 500 MG TAB PO SCH ×3 (06:25→21:02)
[2017-10-09] MEDS: PANTOPRAZOLE 40 MG TABLET PO SCH (06:25)
[2017-10-09] MEDS: IPRATROPIUM-ALBUTEROL 3 ML NEB INHALATION PRN ×2 (08:09→15:55)
[2017-10-09] MEDS: FUROSEMIDE 40 MG TAB PO SCH ×2 (08:20→17:38)
[2017-10-09] MEDS: LISINOPRIL 5 MG TAB PO SCH (08:20)
[2017-10-09] MEDS: SPIRONOLACTONE 25 MG TAB PO SCH ×2 (08:20→21:02)
[2017-10-09] MEDS: METOPROLOL TARTRATE 50 MG TAB PO SCH ×3 (08:20→21:02)
[2017-10-09] MEDS: ISOSORBIDE MONONITRATE ER 30 MG TAB.ER.24H PO SCH (08:20)
[2017-10-09] MEDS: HYDROcodone/APAP 10-325MG 1 EACH TAB PO PRN ×2 (08:40→15:39)
[2017-10-09] MEDS ORDERED: ONDANSETRON 4 MG/2 ML VIAL IVP PRN (09:31)
[2017-10-09] MEDS ORDERED: HYDROcodone/APAP 15 ML SOLUTION PO PRN (09:32)
--- NOTE | 2017-10-09 09:36 | P.PN ---
Subjective Progress Note Date: 10/09/17 Patient seen and examined at bedside. Denies severe abdominal pain. Complains of nausea and has had emesis episodes. He states that he becomes nauseous and has his emesis episodes after taking liquid morphine. He has no additional complaints at this time. Objective - Vital Signs Vital signs: Vital Signs Temp 96.8 F L 10/09/17 04:00 Pulse 96 10/09/17 08:21 Resp 14 10/09/17 04:00 BP 102/63 10/09/17 04:00 Pulse Ox 95 10/09/17 04:00 Intake & Output 10/08/17 10/09/17 10/09/17 18:59 06:59 18:59 Intake Total 713.812 279.503 236 Output Total 300 200 Balance 413.812 79.503 236 Weight 75.8 kg Intake: Intake, IV Titration 353.812 279.503 Amount Heparin Sod,Pork in 0.45% 353.812 279.503 NaCl 25,000 unit In 0.45 % NaCl 1 500ml.bag @ 12 UNITS/KG/HR 17.96 mls/hr IV .Q24H [facility] Rx#: [id number] Oral 360 236 Output: Urine 300 200 Other: Voiding Method Urinal Urinal # Voids 0 2 - Constitutional General appearance: Present: cooperative, no acute distress - Respiratory Details: No difficulty with respiration - Gastrointestinal Gastrointestinal Comment(s): Moderate distention with history of ascites, incision site is well approximated with gloria in place, no evidence of recurrent seroma - Musculoskeletal Musculoskeletal: Present: generalized weakness - Psychiatric Psychiatric: Present: A&O x's 3 - Labs CBC & Chem 7: 10/09/17 02:48 10/09/17 02:48 Labs: Abnormal Lab Results - Last 24 Hours (Table) 10/08/17 10/08/17 10/08/17 Range/Units 10:50 11:35 16:55 RBC (4.30-5.90) m/uL Hgb (13.0-17.5) gm/dL Hct (39.0-53.0) % Neutrophils # (1.3-7.7) k/uL Lymphocytes # (1.0-4.8) k/uL APTT 39.7 H (22.0-30.0) sec Sodium (137-145) mmol/L Carbon Dioxide (22-30) mmol/L Creatinine (0.66-1.25) mg/dL Glucose (74-99) mg/dL POC Glucose (mg/dL) 112 H 132 H (75-99) mg/dL 10/08/17 10/08/17 10/09/17 Range/Units 18:51 20:58 02:48 RBC 4.11 L (4.30-5.90) m/uL Hgb 12.1 L (13.0-17.5) gm/dL Hct 38.0 L (39.0-53.0) % Neutrophils # 9.0 H (1.3-7.7) k/uL Lymphocytes # 0.2 L (1.0-4.8) k/uL APTT 43.2 H (22.0-30.0) sec Sodium (137-145) mmol/L Carbon Dioxide (22-30) mmol/L Creatinine (0.66-1.25) mg/dL Glucose (74-99) mg/dL POC Glucose (mg/dL) 119 H (75-99) mg/dL 10/09/17 10/09/17 10/09/17 Range/Units 02:48 02:48 05:53 RBC (4.30-5.90) m/uL Hgb (13.0-17.5) gm/dL Hct (39.0-53.0) % Neutrophils # (1.3-7.7) k/uL Lymphocytes # (1.0-4.8) k/uL APTT 47.7 H (22.0-30.0) sec Sodium 131 L (137-145) mmol/L Carbon Dioxide 21 L (22-30) mmol/L Creatinine 0.60 L (0.66-1.25) mg/dL Glucose 106 H (74-99) mg/dL POC Glucose (mg/dL) 121 H (75-99) mg/dL Microbiology - Last 24 Hours (Table) 10/07/17 10:06 Gram Stain - Preliminary Aspirate Body Fluid Culture - Preliminary Gram Neg Bacilli Assessment and Plan (1) Seroma after procedure Narrative/Plan: Seroma cultures have returned with a few gram-negative bacilli. Antibiotics have been changed to Unasyn. Due to the patient's nausea and emesis episodes, will provide the patient with Zofran and discontinue liquid morphine and will try liquid [place]. Paracentesis is scheduled for Wednesday. Current Visit: Yes Status: Acute Code(s): [id number] - SNOMED Code(s): 613034183153062
[2017-10-09 11:32] LABS: Glucose,Whole Blood 131 mg/dL (75-99)
--- NOTE | 2017-10-09 13:02 | PN ---
PROGRESS NOTE Mr. Monet is a 62-year-old male with a known history of ischemic cardiomyopathy, percutaneous revascularization, history of chronic persistent atrial fibrillation, who presented with symptoms of abdominal discomfort and lower chest discomfort. He is feeling nauseated and thinks it is related to his oral morphine. His breathing has been stable. He denies any dizziness or palpitation. He denies any syncope. He continued to have the nausea and had vomiting earlier. He has continued to be on the IV heparin in addition to that he is on Lipitor 80 mg daily, furosemide 40 mg twice a day, isosorbide mononitrate 30 mg daily, lisinopril 5 mg daily, metformin 500 mg twice a day, spironolactone 25 mg twice a day. PHYSICAL EXAMINATION: Blood pressure 101/50 with a heart rate in the 90s. LUNGS: Clear. HEART: Irregular irregular, S1, S2. No S3. ABDOMEN: Soft, mildly distended. Kristyn noted. EXTREMITIES: No significant edema. LAB DATA: BUN and creatinine of 19 and 0.6, potassium 4.7, hemoglobin of 12.1. IMPRESSION: 1. Abdominal discomfort, status post recent surgical intervention for incarcerated umbilical hernia. 2. Chronic persistent atrial fibrillation. 3. History of coronary artery disease. 4. Ischemic cardiomyopathy. RECOMMENDATION: Patient will continue present therapy. He is stable from the cardiac standpoint. He may undergo paracentesis on Wednesday, then I will switch him back to Lovenox. KIM / MILAGROS: [id number] /
[2017-10-09 16:53] LABS: Glucose,Whole Blood 97 mg/dL (75-99)
--- NOTE | 2017-10-09 16:56 | PN ---
PROGRESS NOTE DATE OF SERVICE: 10/09/2017 This 62-year-old gentleman who was admitted with ascites, abdominal discomfort, also had some nausea. The patient also had recent surgery, incarcerated umbilical hernia. The patient also had gram-negative bacilli grown from the culture. The patient also had chronic persistent atrial fibrillation. The patient is on IV Unasyn as well as multiple other medical problems, including surgery and Cardiology following the patient closely. No chest pain. No palpitations. PAST MEDICAL HISTORY: Reviewed. REVIEW OF SYSTEMS: CARDIOVASCULAR: No angina. RESPIRATORY: As mentioned. GI: As mentioned earlier. : No dysuria or hematuria. CENTRAL NERVOUS SYSTEM: No numbness, weakness. CURRENT MEDICATIONS: Reviewed and include: 1. [place] 10 mg q.4. 2. [place] elixir p.r.n. 3. DuoNeb q.i.d. and p.r.n. 4. Unasyn 3 g IV q.8h. 5. Lipitor 80 mg q.h.s. 6. Flexeril 10 mg p.o. t.i.d. 7. Lasix 40 mg b.i.d. 8. Heparin b.i.d. 9. Humalog AC. 10.Imdur 30 mg daily. 11.Zestril 5 mg p.o. daily. 12.Glucovance 1000 mg q.h.s. 13.Lopressor 50 mg daily. 14.Nitrostat. 15.Zofran. 16.Protonix 40 mg. 17.Aldactone 25 mg p.o. b.i.d. PHYSICAL EXAM: Patient is alert, oriented x 2. Pulse is 92, blood pressure 108/60, respirations 16, temperature 97.7, pulse ox 97% on room air. HEENT: Conjunctivae normal. Oral mucosa moist. Neck is no jugular venous distention. No carotid bruit. No lymph node enlargement. Cardiovascular: S1, S2 muffled. Respiratory: Breath sounds diminished in the bases. A few scattered rhonchi and crackles. ABDOMEN: Soft, obese, mild diffuse discomfort on palpation. Abdominal hernia present. Status post recent surgery. Nervous system: Higher functions as mentioned earlier. Moves all four extremities. No focal motor or sensory defects. Lymphatics: No lymph nodes palpable in the neck, axillae or groin. Skin: No ulcer, rash or bleeding. LAB STUDIES: WBC 9.1, hemoglobin 12.1. ASSESSMENT: 1. Abdominal pain with infected seroma growing gram-negative bacilli from the surgical site with recent incarcerated umbilical hernia surgery. 2. Recurrent ascites with frequent paracentesis for possible on Wednesday. 3. History of recent incarcerated umbilical hernia repair. 4. Chest pain, atypical coronary syndrome. 5. Atrial fibrillation with rapid ventricular rate. 6. Persistent atrial fibrillation. 7. History of coronary artery disease/stent. 8. Cardiomyopathy, chronic systolic dysfunction. 9. Congestive heart failure, ejection fraction 20-25%. 10.Ischemic cardiomyopathy. 11.Chronic obstructive pulmonary disease. 12.History of nicotine dependence. 13.History of vascular disease. 14.History of pulmonary embolus. 15.Diabetes type 2. 16.Hypertension. 17.Hyperlipidemia. 18.Hypomagnesemia. RECOMMENDATIONS AND DISCUSSION: Continue current medications, management. Symptomatic treatment. Otherwise, at this time, we will monitor the patient closely. Otherwise I would recommend continued the antibiotics. Follow with the final ID. Otherwise, closely follow with multiple consultants. Prognosis guarded because of multiple complex medical issues. Further recommendations to follow. MMODL / IJN: [id number] / ALFRED
[2017-10-09] MEDS: AMPICILLIN-SULBACTAM 3 GM in SODIUM CHLORIDE 0.9% 100 ML IVPB SCH (17:41)
[2017-10-09 20:42] LABS: Glucose,Whole Blood 104 mg/dL (75-99)
[2017-10-09] MEDS: ATORVASTATIN 80 MG TAB PO SCH (21:02)
[2017-10-09] MEDS: HEPARIN SOD,PORK IN 0.45% NACL 25,000 UNIT in 0.45% NACL 1 500ML.BAG IV SCH (21:02)
[2017-10-09 23:35] VITALS: RESP 16
[2017-10-10] MEDS: HYDROcodone/APAP 10-325MG 1 EACH TAB PO PRN (03:37)
[2017-10-10] MEDS: AMPICILLIN-SULBACTAM 3 GM in SODIUM CHLORIDE 0.9% 100 ML IVPB SCH ×2 (03:42→10:33)
[2017-10-10 05:55] LABS: Glucose,Whole Blood 97 mg/dL (75-99)
[2017-10-10] MEDS: INSULIN ASPART 100 UNIT/ML 1 ML 10 ML VIAL SQ SCH ×4 (06:30→21:34)
[2017-10-10] MEDS: PANTOPRAZOLE 40 MG TABLET PO SCH (06:31)
[2017-10-10] MEDS: metFORMIN 500 MG TAB PO SCH ×3 (06:31→21:44)
[2017-10-10 07:35] LABS: Basophils % (A) 0 %; Eosinophils % (A) 0 %; HCT 37.9 % (39.0-53.0); HGB 11.7 gm/dL (13.0-17.5); Lymphocytes # (A) 0.3 k/uL (1.0-4.8); Lymphocytes % (A) 3 %; MCH 28.7 pg (25.0-35.0); MCV 92.7 fL (80.0-100.0); Mean Platelet Volume 7.3; Monocytes # (A) 0.5 k/uL (0-1.0); Monocytes % (A) 5 %; Neutrophils # (A) 9.1 k/uL (1.3-7.7); Neutrophils % (A) 91 %; Platelet Count 318 k/uL (150-450); RBC 4.09 m/uL (4.30-5.90); RDW 14.7 % (11.5-15.5); WBC 10.1 k/uL (3.8-10.6)
[2017-10-10 07:42] LABS: Anion Gap 8 mmol/L; Blood Urea Nitrogen 18 mg/dL (9-20); Calcium 8.3 mg/dL (8.4-10.2); Carbon Dioxide 24 mmol/L (22-30); Chloride 101 mmol/L (98-107); Glucose 94 mg/dL (74-99); Potassium 4.4 mmol/L (3.5-5.1); Sodium 133 mmol/L (137-145)
[2017-10-10] MEDS: IPRATROPIUM-ALBUTEROL 3 ML NEB INHALATION PRN ×2 (08:23→11:43)
[2017-10-10] MEDS: FUROSEMIDE 40 MG TAB PO SCH ×2 (08:41→17:36)
[2017-10-10] MEDS: ISOSORBIDE MONONITRATE ER 30 MG TAB.ER.24H PO SCH (08:41)
[2017-10-10] MEDS: LISINOPRIL 5 MG TAB PO SCH (08:41)
[2017-10-10] MEDS: SPIRONOLACTONE 25 MG TAB PO SCH ×2 (08:41→21:44)
[2017-10-10] MEDS: METOPROLOL TARTRATE 50 MG TAB PO SCH ×3 (08:41→21:44)
--- NOTE | 2017-10-10 10:23 | P.PN ---
Subjective Progress Note Date: 10/10/17 Patient seen and examined at bedside. He states nausea has mildly improved. He still complains of generalized pain. No acute events. Objective - Vital Signs Vital signs: Vital Signs Temp 97.1 F L 10/10/17 04:00 Pulse 104 H 10/10/17 08:35 Resp 16 10/10/17 04:00 BP 97/63 10/09/17 23:35 Pulse Ox 97 10/10/17 04:00 Intake & Output 10/09/17 10/10/17 10/10/17 18:59 06:59 18:59 Intake Total 708 200 Output Total 150 525 Balance 558 -325 Weight 76.9 kg Intake: Oral 708 200 Output: Urine 150 525 Other: Voiding Method Urinal Urinal # Voids 1 - Constitutional General appearance: Present: cooperative, no acute distress - Respiratory Details: No difficulty with respiration - Gastrointestinal Gastrointestinal Comment(s): Soft, distended, no rebound, no guarding, incision site well approximated with gloria in place, no purulent drainage mild erythema surrounding edges - Musculoskeletal Musculoskeletal: Present: generalized weakness - Psychiatric Psychiatric: Present: A&O x's 3 - Labs CBC & Chem 7: 10/10/17 06:29 10/10/17 06:29 Labs: Abnormal Lab Results - Last 24 Hours (Table) 10/09/17 10/09/17 10/10/17 Range/Units 11:31 20:39 06:29 RBC 4.09 L (4.30-5.90) m/uL Hgb 11.7 L (13.0-17.5) gm/dL Hct 37.9 L (39.0-53.0) % Neutrophils # 9.1 H (1.3-7.7) k/uL Lymphocytes # 0.3 L (1.0-4.8) k/uL APTT (22.0-30.0) sec Sodium (137-145) mmol/L POC Glucose (mg/dL) 131 H 104 H (75-99) mg/dL Calcium (8.4-10.2) mg/dL 10/10/17 10/10/17 Range/Units 06:29 06:29 RBC (4.30-5.90) m/uL Hgb (13.0-17.5) gm/dL Hct (39.0-53.0) % Neutrophils # (1.3-7.7) k/uL Lymphocytes # (1.0-4.8) k/uL APTT 52.6 H (22.0-30.0) sec Sodium 133 L (137-145) mmol/L POC Glucose (mg/dL) (75-99) mg/dL Calcium 8.3 L (8.4-10.2) mg/dL Microbiology - Last 24 Hours (Table) 10/07/17 10:06 Gram Stain - Final Aspirate Body Fluid Culture - Final Klebsiella oxytoca Assessment and Plan (1) Seroma after procedure Narrative/Plan: Seroma cultures have returned with a final culture of Klebsiella oxytoca. This is not susceptible to Unasyn that she was changed to yesterday, it is susceptible to Levaquin and his antibiotics have been changed. Continue with pain control. Paracentesis plan for tomorrow. Current Visit: Yes Status: Acute Code(s): [id number] - SNOMED Code(s): 049400987799647
[2017-10-10 11:34] LABS: Glucose,Whole Blood 97 mg/dL (75-99)
[2017-10-10] MEDS: MORPHINE SULFATE 2 MG/ML SYRINGE IVP PRN ×3 (12:45→21:39)
[2017-10-10] MEDS: LEVOFLOXACIN 500MG-D5W PMX 500 MG in DEXTROSE/WATER 1 100ML.BAG IVPB SCH (12:46)
--- NOTE | 2017-10-10 13:31 | P.PN ---
Subjective Mr. Monet is seen and examined resting comfortably in bed in mild distress secondary to abdominal discomfort. Past medical history significant for ischemic cardiomyopathy status post angioplasty, chronic persistent atrial fibrillation and frequent abdominal distentions requiring paracentesis. He denies symptoms of chest pain, shortness of breath, dizziness or palpitations. He continues to complain of ongoing abdominal discomfort with mild nausea no vomiting. He is currently maintained on IV heparin. Hemoglobin 11.7, platelets 318, sodium 133, potassium 4.4, creatinine 0.67. Blood pressure 105/ 62 heart rate 100 afebrile maintaining oxygen saturation on room air. Plan is for ultrasound-guided paracentesis tomorrow. Objective - Vital Signs Vital signs: Vital Signs Temp 97.1 F L 10/10/17 08:00 Pulse 96 10/10/17 11:57 Resp 16 10/10/17 04:00 BP 105/62 10/10/17 08:00 Pulse Ox 95 10/10/17 08:00 Intake & Output 10/09/17 10/10/17 10/10/17 18:59 06:59 18:59 Intake Total 708 200 336 Output Total 150 525 Balance 558 -325 336 Weight 76.9 kg Intake: Oral 708 200 336 Output: Urine 150 525 Other: Voiding Method Urinal Urinal Urinal # Voids 1 - Exam GENERAL: Well-appearing, well-nourished and in no acute distress. NECK: Supple without JVD or thyromegaly. LUNGS: Breath sounds clear to auscultation bilaterally. Respiration equal and unlabored. No wheezes, rales or rhonchi. Diminished bilaterally. HEART: Irregular rate and rhythm without murmurs, rubs or gallops. S1 and S2 heard. EXTREMITIES: Normal range of motion, no edema. No clubbing or cyanosis. Peripheral pulses intact. - Labs CBC & Chem 7: 10/10/17 06:29 10/10/17 06:29 Labs: Abnormal Lab Results - Last 24 Hours (Table) 10/09/17 10/10/17 10/10/17 Range/Units 20:39 06:29 06:29 RBC 4.09 L (4.30-5.90) m/uL Hgb 11.7 L (13.0-17.5) gm/dL Hct 37.9 L (39.0-53.0) % Neutrophils # 9.1 H (1.3-7.7) k/uL Lymphocytes # 0.3 L (1.0-4.8) k/uL APTT (22.0-30.0) sec Sodium 133 L (137-145) mmol/L POC Glucose (mg/dL) 104 H (75-99) mg/dL Calcium 8.3 L (8.4-10.2) mg/dL 10/10/17 Range/Units 06:29 RBC (4.30-5.90) m/uL Hgb (13.0-17.5) gm/dL Hct (39.0-53.0) % Neutrophils # (1.3-7.7) k/uL Lymphocytes # (1.0-4.8) k/uL APTT 52.6 H (22.0-30.0) sec Sodium (137-145) mmol/L POC Glucose (mg/dL) (75-99) mg/dL Calcium (8.4-10.2) mg/dL Microbiology - Last 24 Hours (Table) 10/07/17 10:06 Gram Stain - Final Aspirate Body Fluid Culture - Final Klebsiella oxytoca Assessment and Plan Assessment: ASSESSMENT Abdominal pain and distention status post surgical intervention for incarcerated umbilical hernia Chronic persistent atrial fibrillation on long-term anticoagulation Ischemic cardiomyopathy History of coronary artery disease PLAN Continue current medical therapy. He is stable from a cardiac standpoint. He will undergo ultrasound-guided paracentesis tomorrow and then will be switched back to Lovenox. Nurse Practitioner note has been reviewed, I agree with a documented findings and plan of care. Patient was seen and examined.
[2017-10-10 16:27] LABS: Glucose,Whole Blood 106 mg/dL (75-99)
--- NOTE | 2017-10-10 17:26 | PN ---
PROGRESS NOTE DATE OF SERVICE: 10/10/2017 This 62-year-old gentleman presented with abdominal pain and infected seroma was growing gram-negative bacilli, which is proven to be Klebsiella oxytoca and Clostridium perfringens. The patient is on broad-spectrum IV antibiotics. Patient closely monitored. The Klebsiella oxytoca is sensitive to cefepime. PAST MEDICAL HISTORY: Reviewed. REVIEW OF SYSTEMS: CARDIOVASCULAR: No angina. RESPIRATORY: As mentioned. GI: No nausea. : As mentioned earlier. NERVOUS SYSTEMS: No numbness or weakness. CURRENT MEDICATIONS: Reviewed and include: 1. [place] 10 mg p.o. p.r.n. 2. [place] elixir. 3. Ventolin. 4. Lipitor. 5. Flexeril. 6. Lasix. 7. Heparin. 8. NovoLog. 9. Levaquin. 10.Zestril. 11.Glucophage. 12.Lopressor. 13.Nitrostat. 14.Zofran. 15.Protonix. 16.Aldactone. PHYSICAL EXAM: The patient is alert, oriented x3. The pulse is 100, blood pressure 105/62, respiration 16, temperature 97.2, pulse ox 94% on room air. HEENT: Conjunctivae normal. NECK: No jugular venous distention. CARDIOVASCULAR: S1, S2 muffled. RESPIRATORY: Breath sounds diminished in the bases. A few scattered rhonchi. No crackles. ABDOMEN: Soft, distended. Abdominal wound present. Minimal erythema present. Ascites present and also multiple hernias also present. LEGS: No edema, no swelling. NERVOUS SYSTEM: Higher functions as mentioned earlier. Moves all 4 limbs. No focal motor deficits. LYMPHATIC: No lymphadenopathy in the neck, axillae, groin. SKIN: No ulcer, rash or bleeding. LAB STUDIES: WBC 11.1, hemoglobin 11.7, sodium is 133. ASSESSMENT: 1. Abdominal pain with infected seroma growing Clostridium perfringens and as well as Klebsiella oxytoca. 2. Recurrent ascites, recurrent paracentesis for possible repeat paracentesis on Wednesday. 3. History of recent incarcerated umbilical hernia repair. 4. Chest pain, atypical of coronary artery syndrome. 5. Atrial fibrillation with rapid ventricular rate. 6. Persistent atrial fibrillation. 7. History of coronary artery disease, stent. 8. History of cardiomyopathy, chronic diastolic dysfunction with chronic congestive heart failure, ejection fraction 20-25%. 9. Ischemic cardiomyopathy. 10.History of chronic obstructive pulmonary disease. 11.History of nicotine dependence. 12.History of vascular disease. 13.History of pulmonary embolism. 14.Diabetes mellitus type 2. 15.Hypertension. 16.Hyperlipidemia. 17.Hypomagnesemia. RECOMMENDATIONS AND DISCUSSION: I recommend to continue current management and symptomatic treatment. Continue with the antibiotics, adjust the antibiotics. Otherwise monitor closely. I would defer paracentesis at this time until the wound infection is cleared. Other than that, continue to monitor. Prognosis guarded. MMODL / IJN: [id number] /
[2017-10-10] MEDS: CLINDAMYCIN 600 MG in DEXTROSE 5% IN WATER 50 ML IVPB SCH ×4 (17:35→23:32)
[2017-10-10] MEDS: HEPARIN SOD,PORK IN 0.45% NACL 25,000 UNIT in 0.45% NACL 1 500ML.BAG IV SCH ×2 (17:37→23:32)
[2017-10-10] MEDS: metroNIDAZOLE-NS PMX 500 MG in SALINE 1 100ML.BAG IVPB SCH (17:45)
[2017-10-10 21:05] LABS: Glucose,Whole Blood 107 mg/dL (75-99)
[2017-10-10] MEDS: ATORVASTATIN 80 MG TAB PO SCH (21:44)
[2017-10-11] MEDS: metroNIDAZOLE-NS PMX 500 MG in SALINE 1 100ML.BAG IVPB SCH ×4 (00:14→23:30)
[2017-10-11] MEDS: MORPHINE SULFATE 2 MG/ML SYRINGE IVP PRN ×5 (02:13→21:15)
[2017-10-11 03:06] VITALS: TEMP 98.3
[2017-10-11 06:33] LABS: Glucose,Whole Blood 90 mg/dL (75-99)
[2017-10-11] MEDS: INSULIN ASPART 100 UNIT/ML 1 ML 10 ML VIAL SQ SCH ×4 (06:57→21:16)
[2017-10-11 07:17] LABS: Basophils % (A) 0 %; Eosinophils % (A) 0 %; HCT 37.9 % (39.0-53.0); HGB 11.9 gm/dL (13.0-17.5); Lymphocytes # (A) 0.3 k/uL (1.0-4.8); Lymphocytes % (A) 3 %; MCH 29.3 pg (25.0-35.0); MCHC 31.4 g/dL (31.0-37.0); MCV 93.1 fL (80.0-100.0); Monocytes # (A) 0.7 k/uL (0-1.0); Monocytes % (A) 7 %; Neutrophils # (A) 8.8 k/uL (1.3-7.7); Neutrophils % (A) 88 %; Platelet Count 306 k/uL (150-450); RBC 4.07 m/uL (4.30-5.90); RDW 14.8 % (11.5-15.5); WBC 9.9 k/uL (3.8-10.6)
[2017-10-11 07:23] LABS: INR 1.3 (<1.2); Partial Thromboplastin Time 28.7 sec (22.0-30.0)
[2017-10-11 07:24] LABS: Anion Gap 10 mmol/L; Blood Urea Nitrogen 17 mg/dL (9-20); Calcium 8.3 mg/dL (8.4-10.2); Carbon Dioxide 24 mmol/L (22-30); Chloride 99 mmol/L (98-107); Glucose 89 mg/dL (74-99); Potassium 4.3 mmol/L (3.5-5.1); Sodium 133 mmol/L (137-145)
[2017-10-11] MEDS: metFORMIN 500 MG TAB PO SCH ×3 (07:30→21:15)
[2017-10-11] MEDS: IPRATROPIUM-ALBUTEROL 3 ML NEB INHALATION PRN ×3 (08:26→20:19)
[2017-10-11 09:43] VITALS: BMI 26.9
[2017-10-11] MEDS: PANTOPRAZOLE 40 MG TABLET PO SCH (10:47)
[2017-10-11] MEDS: ISOSORBIDE MONONITRATE ER 30 MG TAB.ER.24H PO SCH (10:47)
[2017-10-11] MEDS: METOPROLOL TARTRATE 50 MG TAB PO SCH ×3 (10:47→21:14)
[2017-10-11] MEDS: FUROSEMIDE 40 MG TAB PO SCH ×2 (10:47→17:23)
[2017-10-11] MEDS: LISINOPRIL 5 MG TAB PO SCH (10:48)
[2017-10-11] MEDS: SPIRONOLACTONE 25 MG TAB PO SCH ×2 (10:48→21:15)
[2017-10-11] MEDS: ALBUTEROL NEBULIZED 2.5 MG/3 ML INHALATION PRN (11:10)
--- NOTE | 2017-10-11 12:07 | P.PN ---
Subjective Patient resting in bed states improvement. Abdominal wound less erythemic. Abdominal distention improved had paracentesis they pulled off 4 L Objective - Vital Signs Vital signs: Vital Signs Temp 98.3 F 10/10/17 20:00 Pulse 101 H 10/11/17 11:18 Resp 16 10/11/17 09:50 BP 115/61 10/11/17 09:50 Pulse Ox 94 L 10/11/17 09:50 Intake & Output 10/10/17 10/11/17 10/11/17 18:59 06:59 18:59 Intake Total 1556 613.313 100 Output Total 200 Balance 1556 413.313 100 Weight 77.9 kg 77.9 kg Intake: Intake, IV Titration 500 493.313 100 Amount Heparin Sod,Pork in 0.45% 500 493.313 NaCl 25,000 unit In 0.45 % NaCl 1 500ml.bag @ 12 UNITS/KG/HR 17.96 mls/hr IV .Q24H MARY BETH Rx#: [id number] metroNIDAZOLE-NS PMX 500 100 mg In Saline 1 100ml.bag @ 100 mls/hr IVPB Q8HR MARY BETH Rx#:[id number] Oral 1056 120 Output: Urine 200 Other: Voiding Method Urinal Urinal # Voids 1 - Constitutional General appearance: Present: mild distress - EENT Eyes: Present: PERRLA Ears: bilateral: normal - Neck Neck: Present: normal ROM - Respiratory Respiratory: bilateral: wheezing - Cardiovascular Rhythm: irregularly irregular - Gastrointestinal General gastrointestinal: Present: soft - Neurologic Neurologic: Present: CNII-XII intact - Musculoskeletal Musculoskeletal: Present: generalized weakness - Psychiatric Psychiatric: Present: A&O x's 3, appropriate affect, intact judgment & insight - Labs CBC & Chem 7: 10/11/17 06:33 10/11/17 06:33 Labs: Abnormal Lab Results - Last 24 Hours (Table) 10/10/17 10/10/17 10/11/17 Range/Units 16:25 21:03 06:33 RBC 4.07 L (4.30-5.90) m/uL Hgb 11.9 L (13.0-17.5) gm/dL Hct 37.9 L (39.0-53.0) % Neutrophils # 8.8 H (1.3-7.7) k/uL Lymphocytes # 0.3 L (1.0-4.8) k/uL INR (<1.2) Sodium (137-145) mmol/L POC Glucose (mg/dL) 106 H 107 H (75-99) mg/dL Calcium (8.4-10.2) mg/dL 10/11/17 10/11/17 Range/Units 06:33 06:33 RBC (4.30-5.90) m/uL Hgb (13.0-17.5) gm/dL Hct (39.0-53.0) % Neutrophils # (1.3-7.7) k/uL Lymphocytes # (1.0-4.8) k/uL INR 1.3 H (<1.2) Sodium 133 L (137-145) mmol/L POC Glucose (mg/dL) (75-99) mg/dL Calcium 8.3 L (8.4-10.2) mg/dL Microbiology - Last 24 Hours (Table) 10/07/17 10:05 Anaerobic Culture - Final Incision Clostridium perfringens Assessment and Plan Plan: Assessment Abdominal pain secondary to abdominal wall abscess and infected seroma positive for Clostridium and Klebsiella Chest pain atypical troponins negative Chronic persistent atrial fibrillation History of coronary disease with stent and VT Ischemic cardiomyopathy ejection fraction 20-25% History of COPD with nicotine dependence Peripheral vascular disease history of pulmonary embolus Diabetes type 2 Hypertension Hyperlipidemia hypo-magnesium Chronic ascites post paracentesis Plan Continue consultation with cardiology Continue consultation with surgery regarding abdominal wall abscess Patient continues on clindamycin and Flagyl
[2017-10-11 12:15] LABS: Glucose,Whole Blood 91 mg/dL (75-99)
[2017-10-11] MEDS: CLINDAMYCIN 600 MG in DEXTROSE 5% IN WATER 50 ML IVPB SCH ×6 (12:29→23:33)
--- NOTE | 2017-10-11 13:24 | US ---
Therapeutic paracentesis. DATE OF EXAM: 10/11/2017 CLINICAL HISTORY: Ascites The procedure was discussed with the patient. The risks, complications, benefits, and alternatives we re discussed and any questions were answered. Informed consent was obtained. The patient was placed s upine on the ultrasound table and prepped and draped in the usual sterile fashion. All elements of maximal barrier technique were utilized. Under ultrasound guidance, access into the right lower quadrant was obtained, via the paracentesis catheter system and direct ultrasound guidanc e. Approximately 3.7 liters of straw-colored fluid was removed. The patient was stable throughout the pr ocedure and remained stable upon discharge from Department of Radiology. IMPRESSION: Successful therapeutic paracentesis under ultrasound guidance.
[2017-10-11] MEDS: LEVOFLOXACIN 500MG-D5W PMX 500 MG in DEXTROSE/WATER 1 100ML.BAG IVPB SCH (14:04)
--- NOTE | 2017-10-11 15:33 | P.PN ---
Subjective Progress Note Date: 10/11/17 Principal diagnosis: infected seroma The patients cultures were reviewed. Antibiotics were adjusted over the weekend Objective - Vital Signs Vital signs: Vital Signs Temp 98.3 F 10/10/17 20:00 Pulse 101 H 10/11/17 11:18 Resp 16 10/11/17 09:50 BP 115/61 10/11/17 09:50 Pulse Ox 94 L 10/11/17 09:50 Intake & Output 10/10/17 10/11/17 10/11/17 18:59 06:59 18:59 Intake Total 1556 613.313 220 Output Total 200 400 Balance 1556 413.313 -180 Weight 77.9 kg 77.9 kg Intake: Intake, IV Titration 500 493.313 100 Amount Heparin Sod,Pork in 0.45% 500 493.313 NaCl 25,000 unit In 0.45 % NaCl 1 500ml.bag @ 12 UNITS/KG/HR 17.96 mls/hr IV .Q24H MARY BETH Rx#: [id number] metroNIDAZOLE-NS PMX 500 100 mg In Saline 1 100ml.bag @ 100 mls/hr IVPB Q8HR MARY BETH Rx#:[id number] Oral 1056 120 120 Output: Urine 200 400 Other: Voiding Method Urinal Urinal # Voids 1 - Constitutional General appearance: Present: cooperative - Labs CBC & Chem 7: 10/11/17 06:33 10/11/17 06:33 Labs: Abnormal Lab Results - Last 24 Hours (Table) 10/10/17 10/10/17 10/11/17 Range/Units 16:25 21:03 06:33 RBC 4.07 L (4.30-5.90) m/uL Hgb 11.9 L (13.0-17.5) gm/dL Hct 37.9 L (39.0-53.0) % Neutrophils # 8.8 H (1.3-7.7) k/uL Lymphocytes # 0.3 L (1.0-4.8) k/uL INR (<1.2) Sodium (137-145) mmol/L POC Glucose (mg/dL) 106 H 107 H (75-99) mg/dL Calcium (8.4-10.2) mg/dL 10/11/17 10/11/17 Range/Units 06:33 06:33 RBC (4.30-5.90) m/uL Hgb (13.0-17.5) gm/dL Hct (39.0-53.0) % Neutrophils # (1.3-7.7) k/uL Lymphocytes # (1.0-4.8) k/uL INR 1.3 H (<1.2) Sodium 133 L (137-145) mmol/L POC Glucose (mg/dL) (75-99) mg/dL Calcium 8.3 L (8.4-10.2) mg/dL Microbiology - Last 24 Hours (Table) 10/07/17 10:05 Anaerobic Culture - Final Incision Clostridium perfringens Assessment and Plan (1) Infected postoperative seroma Current Visit: Yes Status: Acute Code(s): EXS6090 - SNOMED Code(s): 528601031 (2) Atrial fibrillation with RVR Current Visit: Yes Status: Acute Code(s): I48.91 - UNSPECIFIED ATRIAL FIBRILLATION SNOMED Code(s): 411862435260348 (3) COPD exacerbation Current Visit: Yes Status: Acute Code(s): J44.1 - CHRONIC OBSTRUCTIVE PULMONARY DISEASE W (ACUTE) EXACERBATION SNOMED Code(s): 603934681712298 (4) Ascites Current Visit: No Status: Chronic Code(s): R18.8 - OTHER ASCITES SNOMED Code(s): 364859482 (5) Atrial fibrillation Current Visit: No Status: Chronic Code(s): I48.91 - UNSPECIFIED ATRIAL FIBRILLATION SNOMED Code(s): 63462366 (6) History of pulmonary embolism Current Visit: No Status: Resolved Code(s): Z86.711 - PERSONAL HISTORY OF PULMONARY EMBOLISM SNOMED Code(s): 448867903 Plan: The patient is without cellulitis. He is on appropriate antibiotics. Recommend 10 days of antibiotics. F/U in the office
--- NOTE | 2017-10-11 15:43 | P.PN ---
Subjective Progress Note Date: 10/11/17 Mr. Monet is seen and examined resting comfortably in bed in mild distress secondary to abdominal discomfort. Past medical history significant for ischemic cardiomyopathy status post angioplasty, chronic persistent atrial fibrillation and frequent abdominal distention requiring paracentesis. Patient is scheduled today to undergo paracentesis. Following the procedure we will put the patient back on his Lovenox for anticoagulation which he was on at home. Objective - Vital Signs Vital signs: Vital Signs Temp 98.3 F 10/10/17 20:00 Pulse 101 H 10/11/17 11:18 Resp 16 10/11/17 09:50 BP 115/61 10/11/17 09:50 Pulse Ox 94 L 10/11/17 09:50 Intake & Output 10/10/17 10/11/17 10/11/17 18:59 06:59 18:59 Intake Total 1556 613.313 220 Output Total 200 400 Balance 1556 413.313 -180 Weight 77.9 kg 77.9 kg Intake: Intake, IV Titration 500 493.313 100 Amount Heparin Sod,Pork in 0.45% 500 493.313 NaCl 25,000 unit In 0.45 % NaCl 1 500ml.bag @ 12 UNITS/KG/HR 17.96 mls/hr IV .Q24H MARY BETH Rx#: [id number] metroNIDAZOLE-NS PMX 500 100 mg In Saline 1 100ml.bag @ 100 mls/hr IVPB Q8HR MARY BETH Rx#:[id number] Oral 1056 120 120 Output: Urine 200 400 Other: Voiding Method Urinal Urinal # Voids 1 - Exam GENERAL: Well-appearing, well-nourished and in no acute distress. NECK: Supple without JVD or thyromegaly. LUNGS: Breath sounds clear to auscultation bilaterally. Respiration equal and unlabored. No wheezes, rales or rhonchi. Diminished bilaterally. HEART: Irregular rate and rhythm without murmurs, rubs or gallops. S1 and S2 heard. EXTREMITIES: Normal range of motion, no edema. No clubbing or cyanosis. Peripheral pulses intact. - Labs CBC & Chem 7: 10/11/17 06:33 10/11/17 06:33 Labs: Abnormal Lab Results - Last 24 Hours (Table) 10/10/17 10/10/17 10/11/17 Range/Units 16:25 21:03 06:33 RBC 4.07 L (4.30-5.90) m/uL Hgb 11.9 L (13.0-17.5) gm/dL Hct 37.9 L (39.0-53.0) % Neutrophils # 8.8 H (1.3-7.7) k/uL Lymphocytes # 0.3 L (1.0-4.8) k/uL INR (<1.2) Sodium (137-145) mmol/L POC Glucose (mg/dL) 106 H 107 H (75-99) mg/dL Calcium (8.4-10.2) mg/dL 10/11/17 10/11/17 Range/Units 06:33 06:33 RBC (4.30-5.90) m/uL Hgb (13.0-17.5) gm/dL Hct (39.0-53.0) % Neutrophils # (1.3-7.7) k/uL Lymphocytes # (1.0-4.8) k/uL INR 1.3 H (<1.2) Sodium 133 L (137-145) mmol/L POC Glucose (mg/dL) (75-99) mg/dL Calcium 8.3 L (8.4-10.2) mg/dL Microbiology - Last 24 Hours (Table) 10/07/17 10:05 Anaerobic Culture - Final Incision Clostridium perfringens Assessment and Plan Plan: Assessment and plan #1 moderate to severe abdominal pain, patient recently had umbilical hernia surgery, history of recurrent ascites and frequent paracentesis #2 chest pain, atypical for acute coronary syndrome. Troponins 0.02, 0.02, 0.02. EKG on admission showed A. fib with RVR #3 chronic persistent atrial fibrillation, patient takes Lovenox for anticoagulation because of frequent paracentesis #4 known history of coronary artery disease with prior [place] and stent placements #5 ischemic cardiomyopathy, most recent echocardiogram with Doppler study was performed in January of last year which revealed an ejection fraction of 20-25% #6 COPD #7 nicotine dependence #8 PVD and PAD #9 prior PE #10 diabetes #11 hypertension #12 hyperlipidemia #13 hypomagnesemia Plan Patient is scheduled today to undergo paracentesis, once this was performed we will discontinue the heparin and resume the patient's Lovenox. DNP note has been reviewed, I agree with a documented findings and plan of care. Patient was seen and examined.
[2017-10-11 17:07] LABS: Glucose,Whole Blood 91 mg/dL (75-99)
[2017-10-11 18:58] VITALS: BP 97/55
[2017-10-11 20:52] LABS: Glucose,Whole Blood 103 mg/dL (75-99)
[2017-10-11] MEDS: ATORVASTATIN 80 MG TAB PO SCH (21:15)
[2017-10-11] MEDS: ENOXAPARIN 80 MG/0.8 ML SYRINGE SQ SCH (21:15)
[2017-10-12] MEDS: MORPHINE SULFATE 2 MG/ML SYRINGE IVP PRN ×2 (01:35→05:14)
[2017-10-12 06:07] LABS: Glucose,Whole Blood 90 mg/dL (75-99)
[2017-10-12] MEDS: INSULIN ASPART 100 UNIT/ML 1 ML 10 ML VIAL SQ SCH ×2 (06:15→12:29)
[2017-10-12] MEDS: metFORMIN 500 MG TAB PO SCH (06:33)
[2017-10-12] MEDS: PANTOPRAZOLE 40 MG TABLET PO SCH (06:34)
[2017-10-12 06:39] LABS: Basophils % (A) 0 %; Eosinophils % (A) 0 %; HCT 37.9 % (39.0-53.0); Lymphocytes # (A) 0.2 k/uL (1.0-4.8); Lymphocytes % (A) 3 %; MCH 28.9 pg (25.0-35.0); MCHC 31.6 g/dL (31.0-37.0); MCV 91.4 fL (80.0-100.0); Mean Platelet Volume 7.2; Monocytes # (A) 0.6 k/uL (0-1.0); Monocytes % (A) 7 %; Neutrophils # (A) 8.3 k/uL (1.3-7.7); Neutrophils % (A) 89 %; Platelet Count 332 k/uL (150-450); RBC 4.14 m/uL (4.30-5.90); RDW 14.7 % (11.5-15.5); WBC 9.3 k/uL (3.8-10.6)
[2017-10-12 06:58] LABS: Anion Gap 10 mmol/L; Blood Urea Nitrogen 14 mg/dL (9-20); Carbon Dioxide 25 mmol/L (22-30); Chloride 96 mmol/L (98-107); Glucose 85 mg/dL (74-99); Sodium 131 mmol/L (137-145)
[2017-10-12] MEDS: IPRATROPIUM-ALBUTEROL 3 ML NEB INHALATION PRN (08:28)
[2017-10-12] MEDS: HYDROcodone/APAP 10-325MG 1 EACH TAB PO PRN (10:01)
[2017-10-12] MEDS: ENOXAPARIN 80 MG/0.8 ML SYRINGE SQ SCH (10:06)
[2017-10-12] MEDS: METOPROLOL TARTRATE 50 MG TAB PO SCH ×2 (10:07→12:59)
[2017-10-12] MEDS: LISINOPRIL 5 MG TAB PO SCH (10:07)
[2017-10-12] MEDS: FUROSEMIDE 40 MG TAB PO SCH (10:07)
[2017-10-12] MEDS: ISOSORBIDE MONONITRATE ER 30 MG TAB.ER.24H PO SCH (10:07)
[2017-10-12] MEDS: SPIRONOLACTONE 25 MG TAB PO SCH (10:08)
[2017-10-12] MEDS: metroNIDAZOLE-NS PMX 500 MG in SALINE 1 100ML.BAG IVPB SCH (10:16)
--- NOTE | 2017-10-12 11:45 | P.DS ---
Providers Date of admission: 10/06/17 18:09 Expected date of discharge: 10/12/17 Attending physician: Andrews Escobar Consults: 10/06/17 18:05 Consult Physician Urgent Consulting Provider: Jameel Daniels Consult Reason/Comments: stemi Do you want consulting provider notified?: Yes 10/06/17 19:03 Consult Physician Routine Consulting Provider: Vy Sanches Consult Reason/Comments: known Do you want consulting provider notified?: Yes Primary care physician: Andrews Escobar Hospital Course: 62-year-old male presented the emergency room with complaints of atypical chest pain. Patient had recent hernia repair. Was found to have of abdominal wall abscess was treated with antibiotics patient is improving. Patient had paracentesis for chronic ascites 4 L withdrawn from there. Patient was evaluated by cardiology and release for discharge. Patient saw the surgery they prescribed Levaquin 750 mg daily for 10 days Assessment Moderate to severe abdominal pain with abdominal wall abscess with Clostridium Klebsiella infection of the seroma on Chronic ascites with frequent paracentesis Atypical chest pain A. fib with RVR up to 140 Chronic persistent atrial fibrillation History of coronary disease with history of MS and stent placement ischemic cardiomyopathy with ejection fraction of 20-25% History of COPD Nicotine dependence Peripheral vascular disease History of pulmonary embolus Diabetes type 2 Hypertension Hyperlipidemia Plan Follow-up with family physician Dr. Andrews Escobar Follow-up with the surgeon and cardiology Patient Condition at Discharge: Serious Plan - Discharge Summary Discharge Rx Participant: Yes New Discharge Prescriptions: New Levofloxacin [Levaquin] 750 mg PO DAILY #10 tab Continue Hydrocodone/Acetaminophen [[place] 10-325] 1 tab PO Q4H PRN PRN Reason: Pain Ipratropium/Albuterol Sulfate [Combivent Respimat Inhaler] 1 puff INHALATION RT-TID PRN PRN Reason: Shortness Of Breath Atorvastatin [Lipitor] 80 mg PO HS Omeprazole [PriLOSEC] 20 mg PO BID #60 capsule. Cyclobenzaprine [Flexeril] 10 mg PO TID PRN PRN Reason: Pain Albuterol Inhaler [Ventolin Hfa Inhaler] 1 puff INHALATION RT-Q6H PRN PRN Reason: Shortness Of Breath Spironolactone [Aldactone] 25 mg PO BID Furosemide [Lasix] 40 mg PO BID #60 tablet metFORMIN HCL [Glucophage] 500 mg PO BID metFORMIN HCL 1,000 mg PO HS Insulin Aspart [NovoLOG (formulary)] See Protocol SQ ACHS Albuterol Nebulized [Ventolin Nebulized] 2.5 mg INHALATION RT-QID PRN PRN Reason: Shortness Of Breath Isosorbide Mononitrate ER [Imdur] 30 mg PO DAILY #30 tab.er.24h Nitroglycerin Sl Tabs [Nitrostat] 0.4 mg SUBLINGUAL Q5M PRN #100 tab PRN Reason: Chest Pain Enoxaparin [Lovenox] 80 mg SQ Q12H Metoprolol Tartrate [Lopressor] 50 mg PO TID #60 tab Discontinued Aspirin EC [Ecotrin Low Dose] 81 mg PO DAILY #30 tablet. Discharge Medication List Hydrocodone/Acetaminophen [[place] 10-325] 1 tab PO Q4H PRN 02/01/14 [History] Ipratropium/Albuterol Sulfate [Combivent Respimat Inhaler] 1 puff INHALATION RT- TID PRN 02/01/14 [History] Atorvastatin [Lipitor] 80 mg PO HS 04/13/14 [History] Omeprazole [PriLOSEC] 20 mg PO BID #60 capsule. 04/27/14 [Rx] Cyclobenzaprine [Flexeril] 10 mg PO TID PRN 05/10/14 [History] Albuterol Inhaler [Ventolin Hfa Inhaler] 1 puff INHALATION RT-Q6H PRN 10/27/15 [ History] Spironolactone [Aldactone] 25 mg PO BID 01/24/16 [History] Furosemide [Lasix] 40 mg PO BID #60 tablet 09/04/16 [Rx] metFORMIN HCL 1,000 mg PO HS 01/14/17 [History] metFORMIN HCL [Glucophage] 500 mg PO BID 01/14/17 [History] Albuterol Nebulized [Ventolin Nebulized] 2.5 mg INHALATION RT-QID PRN 09/24/17 [ History] Insulin Aspart [NovoLOG (formulary)] See Protocol SQ ACHS 09/24/17 [History] Enoxaparin [Lovenox] 80 mg SQ Q12H 09/28/17 [History] Isosorbide Mononitrate ER [Imdur] 30 mg PO DAILY #30 tab.er.24h 09/28/17 [Rx] Nitroglycerin Sl Tabs [Nitrostat] 0.4 mg SUBLINGUAL Q5M PRN #100 tab 09/28/17 [ Rx] Metoprolol Tartrate [Lopressor] 50 mg PO TID #60 tab 10/02/17 [Rx] Levofloxacin [Levaquin] 750 mg PO DAILY #10 tab 10/11/17 [Rx] Follow up Appointment(s)/Referral(s): Andrews Escobar MD [Primary Care Provider] - 10/14/17 10:00 am () Vy Sanches DO [Doctor of Osteopathic Medicine] - 1 Week Activity/Diet/Wound Care/Special Instructions: Call or return to the ED if you develop fever or chills, or the incision becomes red, swollen or drains.
[2017-10-12 12:03] VITALS: PULSE 130
[2017-10-12 12:12] LABS: Glucose,Whole Blood 87 mg/dL (75-99)
[2017-10-12] MEDS ORDERED: LEVOFLOXACIN 500 MG TAB PO SCH (14:00)
[2017-10-12] MEDS: CLINDAMYCIN 600 MG in DEXTROSE 5% IN WATER 50 ML IVPB SCH ×2 (14:36)
--- NOTE | 2017-10-12 15:25 | P.PN ---
Subjective Progress Note Date: 10/12/17 Mr. Monet is seen and examined resting comfortably in bed in mild distress secondary to abdominal discomfort. Past medical history significant for ischemic cardiomyopathy status post angioplasty, chronic persistent atrial fibrillation and frequent abdominal distention requiring paracentesis. Patient is scheduled today to undergo paracentesis. Following the procedure we will put the patient back on his Lovenox for anticoagulation which he was on at home. 10/12/2017 Patient seen and examined this morning, complaining of mild abdominal discomfort , much less distended, belly soft. Hemodynamically he is stable. Back on his Lovenox. Arrangements are being made for him to be discharged home today, we will make him a follow-up appointment in the office post discharge. Objective - Vital Signs Vital signs: Vital Signs Temp 98.3 F 10/10/17 20:00 Pulse 123 H 10/12/17 08:39 Resp 16 10/12/17 08:39 BP 97/55 10/11/17 16:00 Pulse Ox 98 10/12/17 08:30 Intake & Output 10/11/17 10/12/17 10/12/17 18:59 06:59 18:59 Intake Total 340 240 200 Output Total 1000 0 400 Balance -660 240 -200 Weight 77.9 kg 73 kg Intake: Intake, IV Titration 100 Amount metroNIDAZOLE-NS PMX 500 100 mg In Saline 1 100ml.bag @ 100 mls/hr IVPB Q8HR [facility] Rx#:[id number] Oral 240 240 200 Output: Urine 1000 0 400 Other: Voiding Method Urinal # Voids 0 - Exam GENERAL: Well-appearing, well-nourished and in no acute distress. NECK: Supple without JVD or thyromegaly. LUNGS: Breath sounds clear to auscultation bilaterally. Respiration equal and unlabored. No wheezes, rales or rhonchi. Diminished bilaterally. HEART: Irregular rate and rhythm without murmurs, rubs or gallops. S1 and S2 heard. EXTREMITIES: Normal range of motion, no edema. No clubbing or cyanosis. Peripheral pulses intact. ABDOMEN: Soft, mild generalized tenderness - Labs CBC & Chem 7: 10/12/17 05:40 10/12/17 05:40 Labs: Abnormal Lab Results - Last 24 Hours (Table) 10/11/17 10/12/17 10/12/17 Range/Units 20:50 05:40 05:40 RBC 4.14 L (4.30-5.90) m/uL Hgb 12.0 L (13.0-17.5) gm/dL Hct 37.9 L (39.0-53.0) % Neutrophils # 8.3 H (1.3-7.7) k/uL Lymphocytes # 0.2 L (1.0-4.8) k/uL Sodium 131 L (137-145) mmol/L Chloride 96 L (98-107) mmol/L Creatinine 0.60 L (0.66-1.25) mg/dL POC Glucose (mg/dL) 103 H (75-99) mg/dL Calcium 8.0 L (8.4-10.2) mg/dL Assessment and Plan Plan: Assessment and plan #1 moderate to severe abdominal pain, patient recently had umbilical hernia surgery, history of recurrent ascites and frequent paracentesis #2 chest pain, atypical for acute coronary syndrome. Troponins 0.02, 0.02, 0.02. EKG on admission showed A. fib with RVR #3 chronic persistent atrial fibrillation, patient takes Lovenox for anticoagulation because of frequent paracentesis #4 known history of coronary artery disease with prior MT and stent placements #5 ischemic cardiomyopathy, most recent echocardiogram with Doppler study was performed in January of last year which revealed an ejection fraction of 20-25% #6 COPD #7 nicotine dependence #8 PVD and PAD #9 prior PE #10 diabetes #11 hypertension #12 hyperlipidemia #13 hypomagnesemia Plan From cardiology's perspective, patient may be able to be discharged home today. He is back on his Lovenox, we will make him a follow-up appointment in the office post discharge. DNP note has been reviewed, I agree with a documented findings and plan of care. Patient was seen and examined.
== END 2017-10-12 14:25 | disposition home or self-care (01) | DRG 863 ==
LOC: EC 17:35 → 6ICU 18:09 → 6SEL 19:36
PROVIDERS: ADMIT Family Medicine; ATTEND Family Medicine
PROC: 0H97XZX Drainage of Abdomen Skin, External Approach, Diagnostic (ICD-10-PCS; principal; 2017-10-07)
PROC: 0W9G3ZZ Drainage of Peritoneal Cavity, Percutaneous Approach (ICD-10-PCS; 2017-10-11)
DX: T81.4XXA Infection following a procedure, initial encounter (principal); L76.34 Postprocedural seroma of skin and subcutaneous tissue following other procedure; L02.211 Cutaneous abscess of abdominal wall; I50.32 Chronic diastolic (congestive) heart failure; J44.1 Chronic obstructive pulmonary disease with (acute) exacerbation; R18.8 Other ascites; Y83.8 Other surgical procedures as the cause of abnormal reaction of the patient, or of later complication, without mention of misadventure at the time of the procedure; B96.1 Klebsiella pneumoniae [K. pneumoniae] as the cause of diseases classified elsewhere; E11.51 Type 2 diabetes mellitus with diabetic peripheral angiopathy without gangrene; E78.5 Hyperlipidemia, unspecified; E83.42 Hypomagnesemia; F17.200 Nicotine dependence, unspecified, uncomplicated; F41.9 Anxiety disorder, unspecified; G89.18 Other acute postprocedural pain; I11.0 Hypertensive heart disease with heart failure; I25.10 Atherosclerotic heart disease of native coronary artery without angina pectoris; I25.2 Old myocardial infarction; I25.5 Ischemic cardiomyopathy; I48.2 Chronic atrial fibrillation; Z79.01 Long term (current) use of anticoagulants; Z79.82 Long term (current) use of aspirin; Z79.84 Long term (current) use of oral hypoglycemic drugs; Z79.899 Other long term (current) drug therapy; Z83.3 Family history of diabetes mellitus; Z85.819 Personal history of malignant neoplasm of unspecified site of lip, oral cavity, and pharynx; Z86.711 Personal history of pulmonary embolism; Z86.718 Personal history of other venous thrombosis and embolism; Z92.3 Personal history of irradiation; Z95.5 Presence of coronary angioplasty implant and graft; Z79.4 Long term (current) use of insulin; Z88.5 Allergy status to narcotic agent; Z88.8 Allergy status to other drugs, medicaments and biological substances
CPT/HCPCS: 49083; 71045; 71275; 74177; 80048; 80053; 80061; 82550; 82553; 83690; 83735; 84484; 85025; 85049; 85610; 85730; 87070; 87075; 87077; 87186; 87205; 93005; 94640; 94760; 96365; 96366; 96375; 96376; 99291

== ENCOUNTER 2017-10-25 12:01 | Day surgery (SDC) | payer OTHER ==
[2017-10-25 12:24] VITALS: RESP 20; TEMP 97.5
[2017-10-25 12:26] LABS: Mean Platelet Volume 6.7; Platelet Count 486 k/uL (150-450)
[2017-10-25 12:42] LABS: INR 1.2 (<1.2); Prothrombin Time 11.8 sec (9.0-12.0)
[2017-10-25] MEDS: ALBUMIN HUMAN 25% 50 ML in EMPTY BAG 1 BAG IVPB SCH (13:39)
[2017-10-25 13:40] VITALS: BP 131/84; PULSE 113
--- NOTE | 2017-10-25 14:45 | US ---
Therapeutic paracentesis. DATE OF EXAM: 10/25/2017 CLINICAL HISTORY: Ascites The procedure was discussed with the patient. The risks, complications, benefits, and alternatives we re discussed and any questions were answered. Informed consent was obtained. The patient was placed s upine on the ultrasound table and prepped and draped in the usual sterile fashion. All elements of maximal barrier technique were utilized. Under ultrasound guidance, access into the right lower quadrant was obtained, via the paracentesis catheter system and direct ultrasound guidanc e. Approximately 2.6 liters of straw-colored fluid was removed. The patient was stable throughout the pr ocedure and remained stable upon discharge from Department of Radiology. IMPRESSION: Successful therapeutic paracentesis under ultrasound guidance.
== END 2017-10-25 14:10 | disposition home or self-care (01) ==
LOC: RADPROMAIN 12:01
PROVIDERS: ATTEND Family Medicine
DX: R18.8 Other ascites (principal)
CPT/HCPCS: 36415; 49083; 82565; 85049; 85610

== ENCOUNTER 2017-11-02 10:42 | Inpatient (IN) | payer OTHER ==
[2017-11-02] MEDS ORDERED: SODIUM CHLORIDE 0.9% 1,000 ML IV STA (10:59)
[2017-11-02] MEDS ORDERED: HYDROmorphone 0.5 MG/0.5 ML SYRINGE IVP STA (11:08)
[2017-11-02] MEDS ORDERED: ONDANSETRON 4 MG/2 ML VIAL IVP STA (11:08)
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
[2017-11-02 11:39] LABS: Basophils % (A) 0 %; Eosinophils # (A) 0.1 k/uL (0-0.7); Eosinophils % (A) 1 %; HCT 43.1 % (39.0-53.0); HGB 13.4 gm/dL (13.0-17.5); Hypochromasia Slight; Lymphocytes # (A) 0.4 k/uL (1.0-4.8); Lymphocytes % (A) 4 %; MCH 28.5 pg (25.0-35.0); Mean Platelet Volume 6.8; Monocytes # (A) 0.6 k/uL (0-1.0); Monocytes % (A) 6 %; Neutrophils # (A) 8.1 k/uL (1.3-7.7); Neutrophils % (A) 87 %; Platelet Count 322 k/uL (150-450); RBC 4.69 m/uL (4.30-5.90); WBC 9.3 k/uL (3.8-10.6)
[2017-11-02 11:47] LABS: ALT 25 U/L (21-72); AST 31 U/L (17-59); Albumin 3.1 g/dL (3.5-5.0); Alkaline Phosphatase 486 U/L (38-126); Amylase 35 U/L (30-110); Anion Gap 9 mmol/L; Blood Urea Nitrogen 10 mg/dL (9-20); Calcium 8.7 mg/dL (8.4-10.2); Carbon Dioxide 29 mmol/L (22-30); Chloride 99 mmol/L (98-107); Glucose 115 mg/dL (74-99); Lipase 17 U/L (23-300); Potassium 4.5 mmol/L (3.5-5.1); Sodium 137 mmol/L (137-145); Total Bilirubin 0.9 mg/dL (0.2-1.3); Total Protein 6.7 g/dL (6.3-8.2)
[2017-11-02 11:56] LABS: Appearance,Urine Clear (Clear); Bilirubin,Urine Negative (Negative); Blood,Urine Negative (Negative); Color,Urine Yellow; Glucose,Urine (UA) Negative (Negative); Hyaline Casts,Urine 3 /lpf (0-2); Ketones,Urine Negative (Negative); Leukocyte Esterase,Urine Negative (Negative); Mucus,Urine Many /hpf; Nitrite,Urine Negative (Negative); Protein,Urine 1+ (Negative); RBC,Urine 1 /hpf (0-5); WBC,Urine 1 /hpf (0-5)
[2017-11-02 12:05] LABS: INR 1.2 (<1.2); Partial Thromboplastin Time 26.6 sec (22.0-30.0); Prothrombin Time 11.2 sec (9.0-12.0)
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
[2017-11-02] MEDS ORDERED: NALOXONE 0.4 MG/ML 1 ML VIAL IV PRN (14:17)
[2017-11-02] MEDS ORDERED: ONDANSETRON 4 MG/2 ML VIAL IVP PRN (14:17)
[2017-11-02] MEDS ORDERED: LORazepam 2 MG/ML INJ IV PRN (14:17)
[2017-11-02] MEDS ORDERED: PIPERACILLIN-TAZOBACTAM 3.375 GM in DEXTROSE/WATER 1 50ML.BAG IVPB STA (14:19)
[2017-11-02] MEDS ORDERED: VANCOMYCIN IV PER PHARMACY 1 EACH MISC MISCELLANE PRN (14:19)
[2017-11-02] MEDS ORDERED: VANCOMYCIN 1,500 MG in SODIUM CHLORIDE 0.9% 250 ML IVPB STA (14:26)
[2017-11-02] MEDS: HYDROmorphone 1 MG/ML 1 ML SYRINGE IVP PRN ×3 (14:32→21:23)
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
[2017-11-02] MEDS: VANCOMYCIN 1,500 MG in SODIUM CHLORIDE 0.9% 250 ML IVPB SCH (23:21)
[2017-11-02] MEDS: ENOXAPARIN 80 MG/0.8 ML SYRINGE SQ SCH (23:21)
[2017-11-02] MEDS: SODIUM CHLORIDE 0.9% 1,000 ML IV SCH (23:22)
[2017-11-03] MEDS: HYDROmorphone 1 MG/ML 1 ML SYRINGE IVP PRN ×4 (01:11→14:18)
[2017-11-03] MEDS: VANCOMYCIN 1,500 MG in SODIUM CHLORIDE 0.9% 250 ML IVPB SCH ×3 (06:00→22:48)
[2017-11-03 07:23] LABS: Glucose,Whole Blood 75 mg/dL (75-99)
[2017-11-03] MEDS: PANTOPRAZOLE 40 MG/10 ML VIAL IVP SCH (08:03)
[2017-11-03 09:14] LABS: Anion Gap 5 mmol/L; Blood Urea Nitrogen 9 mg/dL (9-20); Calcium 8.5 mg/dL (8.4-10.2); Carbon Dioxide 27 mmol/L (22-30); Chloride 104 mmol/L (98-107); Glucose 77 mg/dL (74-99); Potassium 4.7 mmol/L (3.5-5.1); Sodium 136 mmol/L (137-145)
[2017-11-03] MEDS: ENOXAPARIN 80 MG/0.8 ML SYRINGE SQ SCH ×2 (10:51→22:49)
--- NOTE | 2017-11-03 12:09 | US ---
EXAMINATION TYPE: US kidneys/renal and bladder DATE OF EXAM: 11/03/2017 COMPARISON: CT scan 11/02/2017 CLINICAL HISTORY: possible renal infarct per ct abd. No pain EXAM MEASUREMENTS: Right Kidney: 10.6 x 7.1 x 4.7 cm Left Kidney: 11.8 x 5.6 x 7.2 cm Right Kidney: Lateral mid cystic appearing lesion seen = 5.3 x 4.4 x 4.2 cm. Vascular flow visualize d. Left Kidney: wnl as visualized. Vascular flow visualized Bladder: mildly distended Bilateral Jets seen Ascites visualized in abdomen and pelvic. In right pelvic, septated fluid collection seen - 7.0 x 8.3 x 7.7 cm No hydronephrosis or nephrolithiasis.. IMPRESSION: There is a simple right renal cyst. There is free fluid within the abdomen pelvis with a septated com plicated collection the pelvis. This should be correlated for clinically for infection or previous he morrhage. Underlying cystic mass not excluded but felt less likely.
[2017-11-03] MEDS: ALBUTEROL NEBULIZED 2.5 MG/3 ML INHALATION PRN ×2 (12:24→19:33)
[2017-11-03] MEDS ORDERED: VANCOMYCIN TROUGH DUE 1 EACH MISC MISCELLANE ONE (14:00)
--- NOTE | 2017-11-03 14:26 | P.PN ---
Subjective Progress Note Date: 11/03/17 Principal diagnosis: Abdominal wall abscess The patient is seen on rounds. He's having complaints of some back pain. Some incisional pain. There is been some drainage. No nausea or vomiting. Objective - Vital Signs Vital signs: Vital Signs Temp 97.0 F L 11/03/17 06:26 Pulse 96 11/03/17 12:32 Resp 16 11/03/17 08:00 BP 103/53 11/03/17 06:26 Pulse Ox 93 L 11/03/17 06:26 Intake & Output 11/02/17 11/03/17 11/03/17 18:59 06:59 18:59 Intake Total 1500 Balance 1500 Weight 76.067 kg 76.067 kg Intake: Amount of Fluid Infused ( 1500 ml) Other: # Voids 2 - Constitutional General appearance: Present: cooperative, no acute distress - Gastrointestinal General gastrointestinal: Present: distended (Becoming increasingly distended with a fluid wave) Localized gastrointestinal: surgical scar: midline (To the right and superiorly to the scar there is an area about 5 x 8 cm of swelling. There is a central area of superficial skin breakdown with serous to cloudy drainage. Minimal cellulitis. He also has the hernia with some ascites in the sac. Early into the left of the old scar.) - Labs CBC & Chem 7: 11/02/17 11:18 11/03/17 08:08 Labs: Abnormal Lab Results - Last 24 Hours (Table) 11/03/17 Range/Units 08:08 Sodium 136 L (137-145) mmol/L Creatinine 0.50 L (0.66-1.25) mg/dL Microbiology - Last 24 Hours (Table) 11/02/17 11:18 Blood Culture - Preliminary Blood No Growth after 24 hours 11/02/17 11:26 Gram Stain - Preliminary Abdomen Wound Culture - Preliminary Assessment and Plan (1) Cellulitis Current Visit: Yes Status: Acute Code(s): L03.90 - CELLULITIS, UNSPECIFIED SNOMED Code(s): 383042005 (2) Ascites Current Visit: Yes Status: Chronic Code(s): R18.8 - OTHER ASCITES SNOMED Code(s): 924941023 Plan: Continue broad-spectrum antibiotics. Recommend infectious disease consult due to this being a recurrent infection. Need to be very careful about doing any sort of drainage procedure. If we entered the peritoneal cavity near the left sided hernia, we could introduce bacteria into the abdomen/ascites causing diffuse peritonitis. This would also created a significant problem with leakage of ascites that could be extremely hard to control.
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
[2017-11-03 15:44] LABS: Hemoglobin A1C 6.4 % (4.0-6.0)
[2017-11-03 16:43] LABS: Glucose,Whole Blood 91 mg/dL (75-99)
[2017-11-03] MEDS: FUROSEMIDE 40 MG TAB PO SCH (16:54)
[2017-11-03] MEDS: SODIUM CHLORIDE 0.9% 1,000 ML IV SCH (16:56)
[2017-11-03 17:05] LABS: Glucose,Whole Blood 117 mg/dL (75-99)
--- NOTE | 2017-11-03 17:36 | CONS ---
CONSULTATION This is a 62-year-old gentleman who has been admitted to [facility] under care of Dr. Escobar. The patient has had a history of incarcerated hernia repaired about a month ago. He has developed redness, swelling and drainage. Patient has been complaining of pain in the abdominal wall. Patient had an abdominal paracentesis done 2 weeks ago. I was consulted for a vascular evaluation, which was incidental finding on CT angiogram. PAST MEDICAL HISTORY: History of cancer, heart failure, CVA, myocardial infraction, prostate disorder and pulmonary embolism. PHYSICAL EXAMINATION: Patient was seen in his room. His in a sitting position. He has a distended abdomen because of ascites and femorals are 1+. Dorsal pedis not palpable. CT scan shows that there is diffuse atherosclerotic changes noted in the right superficial femoral artery. 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 There is no role of surgical intervention from a vascular point of view. When the patient recovers from his hernia and his infection, we will follow in the office in a month's time. Discussed with the patient and they understand. MMODL / IJN: [id number] /
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
[2017-11-03] MEDS: SPIRONOLACTONE 25 MG TAB PO SCH (20:08)
[2017-11-03] MEDS: ATORVASTATIN 80 MG TAB PO SCH (20:08)
[2017-11-03] MEDS: METOPROLOL TARTRATE 50 MG TAB PO SCH (20:08)
[2017-11-03] MEDS: HYDROmorphone 2 MG TAB PO PRN ×2 (20:09→22:49)
[2017-11-03] MEDS ORDERED: NON-FORMULARY DRUG (Metformin Hcl [Metformin Hcl] 1,000 MG) PO SCH (21:00)
[2017-11-03] MEDS ORDERED: NON-FORMULARY DRUG (Omeprazole [Prilosec] 20 MG) PO SCH (21:00)
[2017-11-03 21:29] LABS: Glucose,Whole Blood 151 mg/dL (75-99)
[2017-11-04] MEDS: HYDROmorphone 2 MG TAB PO PRN ×3 (02:23→10:57)
[2017-11-04] MEDS: ALBUTEROL NEBULIZED 2.5 MG/3 ML INHALATION PRN ×3 (07:19→16:07)
[2017-11-04 07:43] LABS: Glucose,Whole Blood 116 mg/dL (75-99)
[2017-11-04] MEDS: VANCOMYCIN 1,500 MG in SODIUM CHLORIDE 0.9% 250 ML IVPB SCH ×2 (07:47→14:40)
[2017-11-04] MEDS: METOPROLOL TARTRATE 50 MG TAB PO SCH ×2 (07:48→21:00)
[2017-11-04] MEDS: ISOSORBIDE MONONITRATE ER 30 MG TAB.ER.24H PO SCH (07:48)
[2017-11-04] MEDS: SPIRONOLACTONE 25 MG TAB PO SCH ×2 (07:49→21:01)
[2017-11-04] MEDS: FUROSEMIDE 40 MG TAB PO SCH ×2 (07:49→14:41)
[2017-11-04] MEDS: PANTOPRAZOLE 40 MG/10 ML VIAL IVP SCH (07:49)
[2017-11-04] MEDS: metFORMIN 500 MG TAB PO SCH (07:49)
[2017-11-04 08:43] LABS: Anion Gap 7 mmol/L; Blood Urea Nitrogen 11 mg/dL (9-20); Calcium 8.7 mg/dL (8.4-10.2); Carbon Dioxide 27 mmol/L (22-30); Chloride 104 mmol/L (98-107); Glucose 100 mg/dL (74-99); Potassium 4.7 mmol/L (3.5-5.1); Sodium 138 mmol/L (137-145)
--- NOTE | 2017-11-04 10:36 | P.PN ---
Subjective Progress Note Date: 11/04/17 Principal diagnosis: Abdominal wall cellulitis The patient was admitted with celulitis, possible abscess. He is about 1 month status post herniorrhaphy with segmental small bowel resection. Due to his medical comorbidities a primary repair was done without any prosthetic material as his risk of infection was high. He had a infection about 1 week postop which was treated with aspiration and IV antibiotics. Subsequently return. He' s complaining of some pain in the lateral parts of his abdomen. Objective - Vital Signs Vital signs: Vital Signs Temp 98.8 F 11/04/17 06:32 Pulse 92 11/04/17 07:35 Resp 18 11/04/17 06:32 BP 97/62 11/04/17 06:32 Pulse Ox 96 11/04/17 06:32 Intake & Output 11/03/17 11/04/17 11/04/17 18:59 06:59 18:59 Weight 76.067 kg Other: Voiding Method Toilet # Voids 1 1 - Constitutional General appearance: Present: cooperative, no acute distress - Gastrointestinal General gastrointestinal: Present: normal bowel sounds, soft Localized gastrointestinal: surgical scar: diffuse (There is some swelling to the right and superior to the scar from the hernia repair. There is a area of skin breakdown. This area sterilely probed. It goes down about 2-2 and half centimeters. Deep cultures were obtained. There is no evidence of tracking. No significant drainage. The soft fluid which is superior and to the left of the old scar is some of his ascites. No sign of infection there.) - Labs CBC & Chem 7: 11/02/17 11:18 11/04/17 07:39 Labs: Abnormal Lab Results - Last 24 Hours (Table) 11/02/17 11/03/17 11/03/17 Range/Units 11:18 16:49 20:40 Creatinine (0.66-1.25) mg/dL Glucose (74-99) mg/dL POC Glucose (mg/dL) 117 H 151 H (75-99) mg/dL Hemoglobin A1c 6.4 H (4.0-6.0) % 11/04/17 11/04/17 Range/Units 07:39 07:40 Creatinine 0.60 L (0.66-1.25) mg/dL Glucose 100 H (74-99) mg/dL POC Glucose (mg/dL) 116 H (75-99) mg/dL Hemoglobin A1c (4.0-6.0) % Microbiology - Last 24 Hours (Table) 11/02/17 11:26 Gram Stain - Final Abdomen Wound Culture - Final 11/02/17 11:18 Blood Culture - Preliminary Blood No Growth after 24 hours Assessment and Plan (1) Cellulitis Current Visit: Yes Status: Acute Code(s): L03.90 - CELLULITIS, UNSPECIFIED SNOMED Code(s): 371993880 (2) Ascites Current Visit: Yes Status: Chronic Code(s): R18.8 - OTHER ASCITES SNOMED Code(s): 963444306 Plan: Continue IV antibiotics. No drainable abscess at this point. Fluid that is to the superior and left of the scar is ascites and I would not aspirate that. Currently nonsurgical
[2017-11-04] MEDS: ENOXAPARIN 80 MG/0.8 ML SYRINGE SQ SCH (11:00)
[2017-11-04 11:31] LABS: Glucose,Whole Blood 111 mg/dL (75-99)
--- NOTE | 2017-11-04 11:53 | P.PN ---
Subjective Patient resting in bed complains of continued back pain. Noticeable distention the abdomen from the ascites. Redness to abdominal cellulitis improving. Patient had evaluation by pulmonology for pleural effusion or treatment at this time. Also had the consultation with vascular surgeon Dr. Wilson no intervention at this time. Dr. Wallace continues to monitor abdominal wall cellulitis Objective - Vital Signs Vital signs: Vital Signs Temp 98.8 F 11/04/17 06:32 Pulse 88 11/04/17 11:18 Resp 18 11/04/17 06:32 BP 97/62 11/04/17 06:32 Pulse Ox 96 11/04/17 06:32 Intake & Output 11/03/17 11/04/17 11/04/17 18:59 06:59 18:59 Weight 76.067 kg Other: Voiding Method Toilet # Voids 1 1 - Constitutional General appearance: Present: mild distress, obese - EENT Eyes: Present: PERRLA Ears: bilateral: normal - Neck Neck: Present: normal ROM - Respiratory Respiratory: bilateral: diminished - Cardiovascular Rhythm: regular - Gastrointestinal General gastrointestinal: Present: distended - Integumentary Integumentary Comment(s): Erythema noted around of umbilical hernia repair Integumentary: Present: normal - Neurologic Neurologic: Present: CNII-XII intact - Musculoskeletal Musculoskeletal: Present: generalized weakness - Psychiatric Psychiatric: Present: A&O x's 3, appropriate affect, intact judgment & insight - Labs CBC & Chem 7: 11/02/17 11:18 11/04/17 07:39 Labs: Abnormal Lab Results - Last 24 Hours (Table) 11/02/17 11/03/17 11/03/17 Range/Units 11:18 16:49 20:40 Creatinine (0.66-1.25) mg/dL Glucose (74-99) mg/dL POC Glucose (mg/dL) 117 H 151 H (75-99) mg/dL Hemoglobin A1c 6.4 H (4.0-6.0) % 11/04/17 11/04/17 11/04/17 Range/Units 07:39 07:40 11:28 Creatinine 0.60 L (0.66-1.25) mg/dL Glucose 100 H (74-99) mg/dL POC Glucose (mg/dL) 116 H 111 H (75-99) mg/dL Hemoglobin A1c (4.0-6.0) % Microbiology - Last 24 Hours (Table) 11/02/17 11:26 Gram Stain - Final Abdomen Wound Culture - Final 11/02/17 11:18 Blood Culture - Preliminary Blood No Growth after 24 hours - Imaging and Cardiology US - abdomen: report reviewed Assessment and Plan Plan: Assessment cellulitis abdominal wall post repair of incarcerated hernia Chronic ascites to abdomen with frequent paracentesis Diabetes type 2 Peripheral vascular disease BPH History of heart failure ejection fraction 25% History of CVA/TIA History of coronary disease with [place] atrial fibrillation History of pulmonary embolus DVTs Throat cancer Pleural effusion Plan Continue consultation with Dr. Sanches Continued on Zosyn and vancomycin
[2017-11-04 12:09] LABS: Glucose,Whole Blood 131 mg/dL (75-99)
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
[2017-11-04] MEDS: SODIUM CHLORIDE 0.9% 1,000 ML IV SCH (12:47)
[2017-11-04] MEDS: LEVOFLOXACIN 500MG-D5W PMX 500 MG in DEXTROSE/WATER 1 100ML.BAG IVPB SCH (12:47)
[2017-11-04] MEDS: HYDROmorphone 1 MG/ML 1 ML SYRINGE IVP PRN ×3 (14:40→21:01)
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
[2017-11-04] MEDS: ATORVASTATIN 80 MG TAB PO SCH (21:00)
--- NOTE | 2017-11-04 23:21 | P.CON ---
Consult Note - . Consult date: 11/04/17 Assessment/Plan:: This is a 62-year-old male who gives history that everything started when he was admitted middle september for heart attack. Patient was diagnosed with an acute non-ST elevated myocardial infarction and cardiology recommended medical management at that time as patient is known to have severe cardiomyopathy with EF of 20-25%, chronic systolic heart failure, chronic atrial fibrillation with recurrent ascites with scheduled paracentesis every 2 weeks. Patient states he was discharged home and then noticed that his abdomen started bulging and he had pain and he came back in and was admitted the next day and underwent release of small bowel obstruction, segmental small bowel resection, hernia raphe on September 29 for incarcerated umbilical hernia with Dr. Sanches. Patient was stable and was discharged home on the all come back on the due to atrial fibrillation with RVR and increased swelling and redness at the incision site. A CAT scan was done that showed a subcutaneous fluid collection measuring 9 x 6 x 3 cm. Suspect herniated incarcerated bowel loops but difficult visualization. On September 07, Dr. Sanches performed fine-needle aspiration with removal of 25 mL reddish fluid slightly cloudy. This culture was positive for Klebsiella oxytoca and he had an incisional wound that was positive for Clostridium perfringens. Patient underwent ultrasound-guided therapeutic paracentesis prior to his discharge. Patient was discharged home on 10/12 with Levaquin for 10 days. Patient states that he was doing fine and had seen Dr. Fowler in the office and the wound was healing nicely. He did not have any complaints until he went to his son's wedding on October 30. He states he was doing fine at the wedding but following that his abdomen became very sore , red and swollen. He denies having any fever or chills. Wound also started to drain yellowish serous fluid. Patient does complain of nausea and vomited once. He states he has not had a bowel movement for a couple of days. He states pain continued to worsen and he came into [facility]. Patient was found to be afebrile, white count was normal at 9.3 , creatinine 0.5. Lactic acid was 0.9, albumin 3.1, alkaline phosphatase was 486 and this is chronically elevated. Patient was admitted to the [facility] floor and started on vancomycin. Wound culture and blood culture are in progress. CAT scan of the abdomen and pelvis showed successful ventral hernia repair surgery with 2 thin walled fluid collections in the anterior abdominal wall mid abdomen. Differential is abscess, seroma, hematoma. Moderately large amount of abdominal pelvic ascites increased from prior. New small to moderate right pleural effusion. Hepatomegaly with cirrhosis or diffuse fatty filtration redemonstrated. 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 Dr. Sanches did obtain a deep wound culture today. He has been seen in consultation by Dr. 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 Patient is followed by Dr. Sanches. Dr. Mc evaluated small right pleural effusion with no plan for thoracentesis. Patient's last thoracentesis was done on Wednesday, October 25. Patient also has significant history of throat cancer status post radiation with PEG tube placement was subsequently removed.please see the consult note is dictated by nurse practitioner Niyah Lisa Julita 11/04/2017 reveals [id number] male with significant ascites to be no adam distress at this time. It is noted there as the erythema to the abdominal wall related to the infection at that site. Antibiotic therapywas started with vancomycin given the cellulitis of abdominal wall. However 10/07/2017 was evidence of a Klebsiella oxytoca and consequently Levaquin is also added to cover this potential pathogen. Continue local wound care and pain control. Protein supplementation is needed to help his overall healing process. I agree with evaluation, assessment and plan as dictated by nurse practitioner Mrs. Lisa Cancino.
[2017-11-05] MEDS: VANCOMYCIN 1,500 MG in SODIUM CHLORIDE 0.9% 250 ML IVPB SCH ×3 (00:18→15:36)
[2017-11-05] MEDS: ENOXAPARIN 80 MG/0.8 ML SYRINGE SQ SCH ×3 (00:18→21:44)
[2017-11-05] MEDS: HYDROmorphone 1 MG/ML 1 ML SYRINGE IVP PRN ×8 (00:19→21:43)
[2017-11-05 07:09] LABS: Glucose,Whole Blood 100 mg/dL (75-99)
[2017-11-05] MEDS: ALBUTEROL NEBULIZED 2.5 MG/3 ML INHALATION PRN ×4 (07:40→20:18)
[2017-11-05] MEDS: PANTOPRAZOLE 40 MG TABLET PO SCH (07:42)
[2017-11-05] MEDS: FUROSEMIDE 40 MG TAB PO SCH ×2 (07:42→16:19)
[2017-11-05] MEDS: SPIRONOLACTONE 25 MG TAB PO SCH ×2 (07:42→21:44)
[2017-11-05] MEDS: metFORMIN 500 MG TAB PO SCH (07:42)
[2017-11-05] MEDS: METOPROLOL TARTRATE 50 MG TAB PO SCH ×2 (09:35→21:44)
[2017-11-05] MEDS: ISOSORBIDE MONONITRATE ER 30 MG TAB.ER.24H PO SCH (09:35)
[2017-11-05 10:12] LABS: Anion Gap 7 mmol/L; Blood Urea Nitrogen 12 mg/dL (9-20); Calcium 8.5 mg/dL (8.4-10.2); Carbon Dioxide 28 mmol/L (22-30); Chloride 103 mmol/L (98-107); Glucose 123 mg/dL (74-99); Potassium 4.3 mmol/L (3.5-5.1); Sodium 138 mmol/L (137-145)
[2017-11-05] MEDS: LEVOFLOXACIN 500MG-D5W PMX 500 MG in DEXTROSE/WATER 1 100ML.BAG IVPB SCH (11:36)
[2017-11-05] MEDS: SODIUM CHLORIDE 0.9% 1,000 ML IV SCH (11:43)
[2017-11-05] MEDS ORDERED: VANCOMYCIN TROUGH DUE 1 EACH MISC MISCELLANE ONE (14:00)
[2017-11-05] MEDS ORDERED: VANCOMYCIN IV PER PHARMACY 1 EACH MISC MISCELLANE PRN (15:06)
--- NOTE | 2017-11-05 20:57 | P.PN ---
Subjective Progress Note Date: 11/05/17 progress note being dictated for Dr. Pascal Interval history: This a 62-year-old gentleman admitted withabdominal cellulitis , possible abscess, recent herniorrhaphy with segmental small bowel resection. Maintained on IV antibiotics of vancomycin and Levaquin as per infectious disease. Evaluated by surgery-reporting no drainable abscess at this time.afebrile, wound cultures pending.reports improvement in abdominal pain/ discomfort. Review of systems: CONSTITUTIONAL: No fever, no malaise, no fatigue. HEENT: No recent visual problems or hearing problems. Denied any sore throat. CARDIOVASCULAR: No chest pain, orthopnea, PND, no palpitations, no syncope. PULMONARY: No shortness of breath, no cough, no hemoptysis. GASTROINTESTINAL: positive nausea and vomiting, no diarrhea.decreased appetite, weight loss, improving abdominal pain. positiveNormoactive bowel sounds. NEUROLOGICAL: No headaches, no weakness, no numbness. HEMATOLOGICAL: Denies any bleeding or petechiae. GENITOURINARY: Denies any burning micturition, frequency, or urgency. MUSCULOSKELETAL/RHEUMATOLOGICAL: Denies any swelling, or any muscle pain. ENDOCRINE: Denies any polyuria or polydipsia. PSYCHIATRIC: No anxiety, no depression The rest of the 14 point review of systems is negative Active Medications Albuterol Sulfate (Ventolin Nebulized) 2.5 mg INHALATION RT-QID PRN PRN Reason: Shortness Of Breath Last Admin: 11/05/17 20:18 Dose: 2.5 mg Atorvastatin Calcium (Lipitor) 80 mg PO HS MARY BETH Last Admin: 11/04/17 21:00 Dose: 80 mg Enoxaparin Sodium (Lovenox) 80 mg SQ Q12H MARY BETH Last Admin: 11/05/17 11:37 Dose: 80 mg Furosemide (Lasix) 40 mg PO BID@0900,1600 [facility] Last Admin: 11/05/17 16:19 Dose: 40 mg Hydromorphone HCl (Dilaudid) 1 mg IVP Q3HR PRN PRN Reason: Pain Last Admin: 11/05/17 18:30 Dose: 1 mg Sodium Chloride (Saline 0.9%) 1,000 mls @ 50 mls/hr IV .Q20H [facility] Last Admin: 11/05/17 11:43 Dose: 50 mls/hr Isosorbide Mononitrate (Imdur) 30 mg PO DAILY [facility] Last Admin: 11/05/17 09:35 Dose: 30 mg Levofloxacin (Levaquin) 500 mg PO Q24H [facility] Lorazepam (Ativan) 0.5 mg IV Q6HR PRN PRN Reason: Anxiety Metformin HCl (Glucophage) 500 mg PO DAILY [facility] Last Admin: 11/05/17 07:42 Dose: 500 mg Metoprolol Tartrate (Lopressor) 50 mg PO BID [facility] Last Admin: 11/05/17 09:35 Dose: 50 mg Miscellaneous Information (Pharmacy To Dose Iv Vancomycin) 1 each MISCELLANE DIRECTED PRN PRN Reason: Per Protocol Naloxone HCl (Narcan) 0.2 mg IV Q2M PRN PRN Reason: Opioid Reversal Ondansetron HCl (Zofran) 4 mg IVP Q8HR PRN PRN Reason: Nausea And Vomiting Pantoprazole Sodium (Protonix) 40 mg PO AC-BRKFST [facility] Last Admin: 11/05/17 07:42 Dose: 40 mg Spironolactone (Aldactone) 25 mg PO BID [facility] Last Admin: 11/05/17 07:42 Dose: 25 mg Objective - Vital Signs Vital signs: Vital Signs Temp 96.5 F L 11/05/17 15:00 Pulse 96 11/05/17 15:00 Resp 18 11/05/17 16:22 BP 93/60 11/05/17 15:00 Pulse Ox 92 L 11/05/17 15:00 Intake & Output 11/05/17 11/05/17 11/06/17 06:59 18:59 06:59 Other: Voiding Method Toilet # Voids 1 3 - Exam PHYSICAL EXAM: VITAL SIGNS: [as above] GENERAL: sitting up in bed, no acute disease HEENT: Conjunctivae normal. eyes normal.oral mucosa moist NECK: No JVD. No thyroid enlargement. No LNs CARDIOVASCULAR: S1, S2 muffled. No murmur RESPIRATION: Breath sounds diminished in the bases. No rhonchi or crackles. No bronchial breathing. ABDOMEN: Soft, mid epigastric, umbilical wound,gabrielle-umbilical tenderness, erythema .recent surgery. positive ascites.No guarding. Bowel sounds heard. LEGS:positive edema PSYCHIATRY: Alert and oriented -3, mood and affect normal. NERVOUS SYSTEM: Cranial N 2-12 grossly normal. Moves all 4 limbs. Diffuse weakness No focal deficits Microbiology 11/02/17 11:18 Blood Blood Culture - Preliminary No Growth after 72 hours 11/04/17 10:45 Abdomen Gram Stain - Preliminary 11/04/17 10:45 Abdomen Wound Culture - Preliminary 11/02/17 11:26 Abdomen Gram Stain - Final 11/02/17 11:26 Abdomen Wound Culture - Final - Labs CBC & Chem 7: 11/02/17 11:18 11/05/17 09:13 Labs: Abnormal Lab Results - Last 24 Hours (Table) 11/05/17 11/05/17 11/05/17 Range/Units 07:03 09:13 14:07 Glucose 123 H (74-99) mg/dL POC Glucose (mg/dL) 100 H (75-99) mg/dL Vancomycin Trough 38.8 H* ug/mL Microbiology - Last 24 Hours (Table) 11/02/17 11:18 Blood Culture - Preliminary Blood No Growth after 72 hours 11/04/17 10:45 Gram Stain - Preliminary Abdomen Wound Culture - Preliminary Assessment and Plan Assessment: Cellulitis,infected seroma of abdominal wall post repair of incarcerated hernia.drainage of infected seroma percutaneously 10/07/17. Status post umbilical herniorrhaphy with small bowel resection on 09/19/2017. 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 final culture results pending. Maintain IV antibiotics as per infectious disease.local wound care.anticoagulated currently on Lovenox, no paracentesis at this time recommended per surgery. prognosis guarded given multiple complex medical issues.Further recommendations to follow. The impression and plan of care has been dictated as directed. : I performed a history and examination of this patient, discussed the same with the dictator. I agree with the dictator's note ,documented as a scribe. Any additional findings or plans will be noted.
[2017-11-05] MEDS ORDERED: IPRATROPIUM-ALBUTEROL 3 ML NEB INHALATION PRN (20:59)
[2017-11-05] MEDS: ATORVASTATIN 80 MG TAB PO SCH (21:44)
--- NOTE | 2017-11-05 23:46 | P.PN ---
Subjective Progress Note Date: 11/05/17 This is a 62-year-old male who gives history that everything started when he was admitted middle september for heart attack. Patient was diagnosed with an acute non-ST elevated myocardial infarction and cardiology recommended medical management at that time as patient is known to have severe cardiomyopathy with EF of 20-25%, chronic systolic heart failure, chronic atrial fibrillation with recurrent ascites with scheduled paracentesis every 2 weeks. Patient states he was discharged home and then noticed that his abdomen started bulging and he had pain and he came back in and was admitted the next day and underwent release of small bowel obstruction, segmental small bowel resection, hernia raphe on September 29 for incarcerated umbilical hernia with Dr. Sanches. Patient was stable and was discharged home on the all come back on the due to atrial fibrillation with RVR and increased swelling and redness at the incision site. A CAT scan was done that showed a subcutaneous fluid collection measuring 9 x 6 x 3 cm. Suspect herniated incarcerated bowel loops but difficult visualization. On September 07, Dr. Sanches performed fine-needle aspiration with removal of 25 mL reddish fluid slightly cloudy. This culture was positive for Klebsiella oxytoca and he had an incisional wound that was positive for Clostridium perfringens. Patient underwent ultrasound-guided therapeutic paracentesis prior to his discharge. Patient was discharged home on 10/12 with Levaquin for 10 days. Patient states that he was doing fine and had seen Dr. Fowler in the office and the wound was healing nicely. He did not have any complaints until he went to his son's wedding on October 30. He states he was doing fine at the wedding but following that his abdomen became very sore , red and swollen. He denies having any fever or chills. Wound also started to drain yellowish serous fluid. Patient does complain of nausea and vomited once. He states he has not had a bowel movement for a couple of days. He states pain continued to worsen and he came into [facility] for evaluation. Patient was found to be afebrile, white count was normal at 9.3 , creatinine 0.5. Lactic acid was 0.9, albumin 3.1, alkaline phosphatase was 486 and this is chronically elevated. Patient was admitted to the [facility] floor and started on vancomycin. Wound culture and blood culture are in progress. CAT scan of the abdomen and pelvis showed successful ventral hernia repair surgery with 2 thin walled fluid collections in the anterior abdominal wall mid abdomen. Differential is abscess, seroma, hematoma. Moderately large amount of abdominal pelvic ascites increased from prior. New small to moderate right pleural effusion. Hepatomegaly with cirrhosis or diffuse fatty filtration redemonstrated. 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 Dr. Sanches did obtain a deep wound culture today. He has been seen in consultation by Dr. 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 Patient is followed by Dr. Sanches. Dr. Mc evaluated small right pleural effusion with no plan for thoracentesis. Patient's last thoracentesis was done on October 25. Patient also has significant history of throat cancer status post radiation with PEG tube placement was subsequently removed. 11/05/2017 the patient continues to feel poorly. He's had some nausea today without significant emesis. His family is present they brought him some outside food that he is happy to try. He is denying fevers or chills but does feel poorly overall. Objective - Vital Signs Vital signs: Vital Signs Temp 98.0 F 11/05/17 22:43 Pulse 90 11/05/17 22:43 Resp 18 11/05/17 22:43 BP 103/72 11/05/17 22:43 Pulse Ox 96 11/05/17 22:43 Intake & Output 11/05/17 11/05/17 11/06/17 06:59 18:59 06:59 Intake Total 250 Balance 250 Intake: Oral 250 Other: Voiding Method Toilet # Voids 1 3 1 - Exam Gen: This is a 64-year-old male. He is ambulating in his room to the bathroom and back and appears to be in no acute distress. He does complain of significant pain to his abdomen. His gait is steady. HEENT: Head is atraumatic, normocephalic. Pupils equal, round. Sclerae is anicteric. Conjunctiva pink. Mucous members of the mouth are slightly dry. Patient is edentulous. No lesions noted. NECK: Supple. No JVD. No lymphadenopathy. No thyromegaly. LUNGS: Scattered rhonchi. No intercostal retractions. HEART: Irregular rate and rhythm. No murmur. ABDOMEN: Distended, positive ascites. Bowel sounds are present. Abdominal wound to the umbilical area with a serous drainage. Surrounding erythema and edema with tenderness. EXTREMITIES: 1+ pedal edema bilaterally. Dorsalis pedis +2 bilaterally . No calf tenderness. NEUROLOGICAL: Patient is awake, alert and oriented x3. Cranial nerves 2 through 12 are grossly intact. - Labs CBC & Chem 7: 11/02/17 11:18 11/05/17 09:13 Labs: Abnormal Lab Results - Last 24 Hours (Table) 11/05/17 11/05/17 11/05/17 Range/Units 07:03 09:13 14:07 Glucose 123 H (74-99) mg/dL POC Glucose (mg/dL) 100 H (75-99) mg/dL Vancomycin Trough 38.8 H* ug/mL Microbiology - Last 24 Hours (Table) 11/02/17 11:18 Blood Culture - Preliminary Blood No Growth after 72 hours 11/04/17 10:45 Gram Stain - Preliminary Abdomen Wound Culture - Preliminary Laboratory Results WBC 9.3 k/uL (3.8-10.6) 11/02/17 11:18 RBC 4.69 m/uL (4.30-5.90) 11/02/17 11:18 Hgb 13.4 gm/dL (13.0-17.5) 11/02/17 11:18 Hct 43.1 % (39.0-53.0) 11/02/17 11:18 MCV 92.0 fL (80.0-100.0) 11/02/17 11:18 MCH 28.5 pg (25.0-35.0) 11/02/17 11:18 MCHC 31.0 g/dL (31.0-37.0) 11/02/17 11:18 RDW 15.0 % (11.5-15.5) 11/02/17 11:18 Plt Count 322 k/uL (150-450) 11/02/17 11:18 Neutrophils % 87 % 11/02/17 11:18 Lymphocytes % 4 % 11/02/17 11:18 Monocytes % 6 % 11/02/17 11:18 Eosinophils % 1 % 11/02/17 11:18 Basophils % 0 % 11/02/17 11:18 Neutrophils # 8.1 k/uL (1.3-7.7) H 11/02/17 11:18 Lymphocytes # 0.4 k/uL (1.0-4.8) L 11/02/17 11:18 Monocytes # 0.6 k/uL (0-1.0) 11/02/17 11:18 Eosinophils # 0.1 k/uL (0-0.7) 11/02/17 11:18 Basophils # 0.0 k/uL (0-0.2) 11/02/17 11:18 Hypochromasia Slight 11/02/17 11:18 PT 11.2 sec (9.0-12.0) 11/02/17 11:18 INR 1.2 (<1.2) H 11/02/17 11:18 APTT 26.6 sec (22.0-30.0) 11/02/17 11:18 Sodium 138 mmol/L (137-145) 11/05/17 09:13 Potassium 4.3 mmol/L (3.5-5.1) 11/05/17 09:13 Chloride 103 mmol/L (98-107) 11/05/17 09:13 Carbon Dioxide 28 mmol/L (22-30) 11/05/17 09:13 Anion Gap 7 mmol/L 11/05/17 09:13 BUN 12 mg/dL (9-20) 11/05/17 09:13 Creatinine 0.91 mg/dL (0.66-1.25) 11/05/17 09:13 Est GFR (CKD-EPI)AfAm >90 (>60 ml/min/1.73 sqM) 11/05/17 09:13 Est GFR (CKD-EPI)NonAf >90 (>60 ml/min/1.73 sqM) 11/05/17 09:13 Glucose 123 mg/dL (74-99) H 11/05/17 09:13 POC Glucose (mg/dL) 100 mg/dL (75-99) H 11/05/17 07:03 POC Glu [employer] GRAYSON WildaParish 11/05/17 07:[address] Glu mg/dL 137 11/02/17 11:18 Hemoglobin A1c 6.4 % (4.0-6.0) H 11/02/17 11:18 Plasma Lactic Acid Narinder 0.9 mmol/L (0.7-2.0) 11/02/17 11:18 Calcium 8.5 mg/dL (8.4-10.2) 11/05/17 09:13 Total Bilirubin 0.9 mg/dL (0.2-1.3) 11/02/17 11:18 AST 31 U/L (17-59) 11/02/17 11:18 ALT 25 U/L (21-72) 11/02/17 11:18 Alkaline Phosphatase 486 U/L (38-126) H 11/02/17 11:18 Total Protein 6.7 g/dL (6.3-8.2) 11/02/17 11:18 Albumin 3.1 g/dL (3.5-5.0) L 11/02/17 11:18 Amylase 35 U/L (30-110) 11/02/17 11:18 Lipase 17 U/L (23-300) L 11/02/17 11:18 Urine Color Yellow 11/02/17 11:38 Urine Appearance Clear (Clear) 11/02/17 11:38 Urine pH 6.0 (5.0-8.0) 11/02/17 11:38 Ur Specific [place] 1.020 (1.001-1.035) 11/02/17 11:38 Urine Protein 1+ (Negative) H 11/02/17 11:38 Urine Glucose (UA) Negative (Negative) 11/02/17 11:38 Urine Ketones Negative (Negative) 11/02/17 11:38 Urine Blood Negative (Negative) 11/02/17 11:38 Urine Nitrite Negative (Negative) 11/02/17 11:38 Urine Bilirubin Negative (Negative) 11/02/17 11:38 Urine Urobilinogen 3.0 mg/dL (<2.0) 11/02/17 11:38 Ur Leukocyte Esterase Negative (Negative) 11/02/17 11:38 Urine RBC 1 /hpf (0-5) 11/02/17 11:38 Urine WBC 1 /hpf (0-5) 11/02/17 11:38 Hyaline Casts 3 /lpf (0-2) H 11/02/17 11:38 Urine Mucus Many /hpf (None) H 11/02/17 11:38 Vancomycin Trough 38.8 ug/mL H* 11/05/17 14:07 Microbiology 11/02/17 11:18 Blood Blood Culture - Preliminary No Growth after 72 hours 11/04/17 10:45 Abdomen Gram Stain - Preliminary 11/04/17 10:45 Abdomen Wound Culture - Preliminary 11/02/17 11:26 Abdomen Gram Stain - Final 11/02/17 11:26 Abdomen Wound Culture - Final Assessment and Plan (1) Abdominal wall abscess at site of surgical wound Narrative/Plan: 62-year-old male with a complex past medical history presented to Hospital was to be in pain and swelling to the abdominal area. Abscess was found and he has had some surgical repair. He is denying high-grade fevers or chills but is having ongoing infection of the abdominal wall. Does seem to be responding to antibiotic therapy. The vancomycin and Zosyn continue for now while cultures are pending. Local wound care is nonstick dressing. Continue with attempts to improve his nutritional intake which will help his healing. This is discussed with his family who are present. Current Visit: Yes Status: Acute Code(s): T81.4XXA - INFECTION FOLLOWING A PROCEDURE, INITIAL ENCOUNTER SNOMED Code(s): 087417419 (2) Ascites Current Visit: Yes Status: Chronic Code(s): R18.8 - OTHER ASCITES SNOMED Code(s): 117574583
[2017-11-06] MEDS: HYDROmorphone 1 MG/ML 1 ML SYRINGE IVP PRN ×7 (00:44→21:45)
--- NOTE | 2017-11-06 06:51 | XR ---
EXAMINATION TYPE: XR chest 2V DATE OF EXAM: 11/06/2017 HISTORY: F/U. REFERENCE: Previous study dated 10/06/2017. FINDINGS: Lung volumes are prominent. The heart is mildly enlarged. There is a worsening right-sided pleural effusion. There is right basilar atelectasis. Left lung is clear. IMPRESSION: 1. WORSENING RIGHT-SIDED EFFUSION. 2. MILD CARDIOMEGALY. 3. MINIMAL RIGHT BASILAR ATELECTASIS. 4. PLEASE CORRELATE FOR COPD.
[2017-11-06 07:07] LABS: Glucose,Whole Blood 110 mg/dL (75-99)
[2017-11-06] MEDS: IPRATROPIUM-ALBUTEROL 3 ML NEB INHALATION SCH ×4 (07:31→20:17)
[2017-11-06] MEDS: SPIRONOLACTONE 25 MG TAB PO SCH ×2 (07:40→20:21)
[2017-11-06] MEDS: METOPROLOL TARTRATE 50 MG TAB PO SCH ×2 (07:40→20:21)
[2017-11-06] MEDS: PANTOPRAZOLE 40 MG TABLET PO SCH (07:40)
[2017-11-06] MEDS: metFORMIN 500 MG TAB PO SCH (07:40)
[2017-11-06] MEDS: FUROSEMIDE 40 MG TAB PO SCH ×2 (07:40→15:49)
[2017-11-06] MEDS: SODIUM CHLORIDE 0.9% 1,000 ML IV SCH ×2 (07:41→20:19)
[2017-11-06] MEDS: ISOSORBIDE MONONITRATE ER 15 MG TAB PO SCH (07:42)
[2017-11-06 09:46] LABS: Calcium 8.4 mg/dL (8.4-10.2); Potassium 4.4 mmol/L (3.5-5.1)
[2017-11-06 09:51] LABS: Vancomycin,Random 28.2 ug/mL
[2017-11-06] MEDS: ENOXAPARIN 80 MG/0.8 ML SYRINGE SQ SCH ×2 (12:18→23:38)
[2017-11-06] MEDS: LEVOFLOXACIN 500 MG TAB PO SCH (12:18)
--- NOTE | 2017-11-06 14:14 | P.PN ---
Subjective Progress Note Date: 11/06/17 Principal diagnosis: Abdominal wall cellulitis /?abscess Mr. Monet is a 62-year-old male with a past medical history of CVA/TIA, heart failure, PE admitted to the hospital for abdominal wall cellulitis status post repair of incarcerated hernia. He is currently getting IV antibiotics as per ID recommendations Today patient is lying in the bed comfortably appears to be in acute distress. He states his abdominal wall wound still keeps having drainage. States that the redness has improved. On review of systems: Patient denies having any fevers chills or rigors. No chest pain or palpitations. No cough or difficulty in breathing. No abdominal pain nausea vomiting or diarrhea. No dysuria or hematuria. Objective - Vital Signs Vital signs: Vital Signs Temp 98.4 F 11/06/17 06:41 Pulse 86 11/06/17 12:15 Resp 18 11/06/17 07:40 BP 106/52 11/06/17 06:41 Pulse Ox 92 L 11/06/17 06:41 Intake & Output 11/05/17 11/06/17 11/06/17 18:59 06:59 18:59 Intake Total 550 Balance 550 Intake: Oral 550 Other: Voiding Method Toilet # Voids 3 3 - Exam GENERAL: sitting up in bed, no acute disease HEENT: Conjunctivae normal. eyes normal.oral mucosa moist NECK: No JVD. No thyroid enlargement. No LNs CARDIOVASCULAR: S1, S2 muffled. No murmur RESPIRATION: Breath sounds diminished in the bases. No rhonchi or crackles. No bronchial breathing. ABDOMEN: Soft, mid epigastric, umbilical wound,gabrielle-umbilical tenderness, erythema .recent surgery. positive ascites.No guarding. Bowel sounds heard. LEGS:positive edema PSYCHIATRY: Alert and oriented -3, mood and affect normal. NERVOUS SYSTEM: Cranial N 2-12 grossly normal. Moves all 4 limbs. Diffuse weakness No focal deficits - Labs CBC & Chem 7: 11/02/17 11:18 11/06/17 07:59 Labs: Abnormal Lab Results - Last 24 Hours (Table) 11/05/17 11/06/17 11/06/17 Range/Units 14:07 07:06 07:59 Sodium 136 L (137-145) mmol/L Creatinine 1.30 H (0.66-1.25) mg/dL Glucose 107 H (74-99) mg/dL POC Glucose (mg/dL) 110 H (75-99) mg/dL Vancomycin Trough 38.8 H* ug/mL Microbiology - Last 24 Hours (Table) 11/04/17 10:45 Gram Stain - Final Abdomen Wound Culture - Final 11/02/17 11:18 Blood Culture - Preliminary Blood No Growth after 96 hours Assessment and Plan Assessment: Assessment: Cellulitis,infected seroma of abdominal wall post repair of incarcerated hernia.drainage of infected seroma percutaneously 10/07/17. Status post umbilical herniorrhaphy with small bowel resection on 09/19/2017. 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 final culture results pending. Maintain IV antibiotics as per infectious disease.local wound care.anticoagulated currently on Lovenox, no paracentesis at this time recommended per surgery. prognosis guarded given multiple complex medical issues.Further recommendations to follow.
[2017-11-06] MEDS: ATORVASTATIN 80 MG TAB PO SCH (20:21)
[2017-11-07] MEDS: HYDROmorphone 1 MG/ML 1 ML SYRINGE IVP PRN ×7 (00:55→23:08)
[2017-11-07 07:05] LABS: Glucose,Whole Blood 93 mg/dL (75-99)
[2017-11-07] MEDS: IPRATROPIUM-ALBUTEROL 3 ML NEB INHALATION SCH ×4 (07:15→19:39)
[2017-11-07] MEDS: SPIRONOLACTONE 25 MG TAB PO SCH ×2 (07:52→20:00)
[2017-11-07] MEDS: PANTOPRAZOLE 40 MG TABLET PO SCH (07:52)
[2017-11-07] MEDS: METOPROLOL TARTRATE 50 MG TAB PO SCH ×2 (07:52→20:00)
[2017-11-07] MEDS: FUROSEMIDE 40 MG TAB PO SCH ×2 (07:52→17:22)
[2017-11-07] MEDS: metFORMIN 500 MG TAB PO SCH (07:52)
[2017-11-07] MEDS: ISOSORBIDE MONONITRATE ER 15 MG TAB PO SCH (07:52)
[2017-11-07 09:50] LABS: Calcium 8.4 mg/dL (8.4-10.2); Potassium 4.3 mmol/L (3.5-5.1)
[2017-11-07 10:03] LABS: Vancomycin,Random 19.6 ug/mL
[2017-11-07] MEDS: LEVOFLOXACIN 500 MG TAB PO SCH (11:25)
[2017-11-07] MEDS ORDERED: VANCOMYCIN 1,500 MG in SODIUM CHLORIDE 0.9% 250 ML IVPB ONE (12:00)
--- NOTE | 2017-11-07 14:13 | P.PN ---
Subjective Progress Note Date: 11/07/17 Principal diagnosis: Abdominal wall cellulitis /?abscess Mr. Monet is a 62-year-old male with a past medical history of CVA/TIA, heart failure, PE admitted to the hospital for abdominal wall cellulitis status post repair of incarcerated hernia. He is currently getting IV antibiotics as per ID recommendations On 11/07/2017 - No active issues overnight. Today patient is lying in the bed comfortably appears to be in acute distress. He states his abdominal wall wound still keeps having drainage. States that the redness has improved. He states that he is scheduled for a paracentesis tomorrow as outpatient. He requests if he could get the procedure while he is in the hospital. On review of systems: Patient denies having any fevers chills or rigors. No chest pain or palpitations. No cough or difficulty in breathing. No abdominal pain nausea vomiting or diarrhea. No dysuria or hematuria. Objective - Vital Signs Vital signs: Vital Signs Temp 98.7 F 11/07/17 07:00 Pulse 88 11/07/17 10:59 Resp 18 11/07/17 07:00 BP 146/76 11/07/17 07:00 Pulse Ox 95 11/07/17 07:00 Intake & Output 11/06/17 11/07/17 11/07/17 18:59 06:59 18:59 Intake Total 1025 200 Balance 1025 200 Weight 80.5 kg Intake: Oral 1025 200 Other: Voiding Method Toilet # Voids 3 2 - Exam GENERAL: sitting up in bed, no acute disease HEENT: Conjunctivae normal. eyes normal.oral mucosa moist NECK: No JVD. No thyroid enlargement. No LNs CARDIOVASCULAR: S1, S2 muffled. No murmur RESPIRATION: Breath sounds diminished in the bases. No rhonchi or crackles. No bronchial breathing. ABDOMEN: Soft, mid epigastric, umbilical wound,gabrielle-umbilical tenderness, erythema .recent surgery. positive ascites.No guarding. Bowel sounds heard. LEGS:positive edema PSYCHIATRY: Alert and oriented -3, mood and affect normal. NERVOUS SYSTEM: Cranial N 2-12 grossly normal. Moves all 4 limbs. Diffuse weakness No focal deficits - Labs CBC & Chem 7: 11/02/17 11:18 11/07/17 09:05 Labs: Abnormal Lab Results - Last 24 Hours (Table) 11/07/17 Range/Units 09:05 Creatinine 1.57 H (0.66-1.25) mg/dL Glucose 115 H (74-99) mg/dL Microbiology - Last 24 Hours (Table) 11/04/17 10:45 Gram Stain - Final Abdomen Wound Culture - Final 11/02/17 11:18 Blood Culture - Preliminary Blood No Growth after 96 hours Assessment and Plan Assessment: Assessment: Cellulitis,infected seroma of abdominal wall post repair of incarcerated hernia.drainage of infected seroma percutaneously 10/07/17. Status post umbilical herniorrhaphy with small bowel resection on 09/19/2017. 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 Discontinue metformin. Obtain nephrology consult .Final culture results pending. Maintain IV antibiotics as per infectious disease.Local wound care. Anticoagulation with Lovenox. Prognosis guarded given multiple complex medical issues.Further recommendations to follow.
[2017-11-07] MEDS: ATORVASTATIN 80 MG TAB PO SCH (20:00)
[2017-11-07 21:42] LABS: Appearance,Urine Cloudy (Clear); Bacteria,Urine Occasional /hpf; Bilirubin,Urine Negative (Negative); Blood,Urine Negative (Negative); Color,Urine Yellow; Glucose,Urine (UA) Negative (Negative); Ketones,Urine Negative (Negative); Leukocyte Esterase,Urine Negative (Negative); Mucus,Urine Rare /hpf; Nitrite,Urine Negative (Negative); PH, Urine 5.5 (5.0-8.0); Protein,Urine Trace (Negative); RBC,Urine <1 /hpf (0-5); Specific Gravity,Urine 1.011 (1.001-1.035); Squamous Epithelial Cell,Urine <1 /hpf (0-4); Urobilinogen,Urine <2.0 mg/dL (<2.0); WBC,Urine 1 /hpf (0-5)
[2017-11-07 22:11] LABS: Creatinine,Urine Random 88.8 mg/dL
[2017-11-07] MEDS: ENOXAPARIN 80 MG/0.8 ML SYRINGE SQ SCH (22:36)
[2017-11-07] MEDS: SODIUM CHLORIDE 0.9% 1,000 ML IV SCH (23:22)
[2017-11-08] MEDS: HYDROmorphone 1 MG/ML 1 ML SYRINGE IVP PRN ×4 (03:42→15:27)
[2017-11-08 07:20] LABS: Glucose,Whole Blood 100 mg/dL (75-99)
[2017-11-08] MEDS: ENOXAPARIN 80 MG/0.8 ML SYRINGE SQ SCH (07:31)
[2017-11-08] MEDS: ISOSORBIDE MONONITRATE ER 15 MG TAB PO SCH (07:32)
[2017-11-08] MEDS: SPIRONOLACTONE 25 MG TAB PO SCH (07:32)
[2017-11-08] MEDS: FUROSEMIDE 40 MG TAB PO SCH ×2 (07:32→15:27)
[2017-11-08] MEDS: PANTOPRAZOLE 40 MG TABLET PO SCH (07:32)
[2017-11-08] MEDS: METOPROLOL TARTRATE 50 MG TAB PO SCH (07:32)
[2017-11-08 08:06] LABS: Calcium 8.7 mg/dL (8.4-10.2); Potassium 4.7 mmol/L (3.5-5.1)
[2017-11-08] MEDS: IPRATROPIUM-ALBUTEROL 3 ML NEB INHALATION SCH ×3 (08:14→16:12)
[2017-11-08 08:36] LABS: Vancomycin,Random 23.9 ug/mL
[2017-11-08 08:47] LABS: Mean Platelet Volume 7.5; Platelet Count 338 k/uL (150-450)
[2017-11-08 09:45] LABS: INR 1.3 (<1.2); Prothrombin Time 12.2 sec (9.0-12.0)
[2017-11-08] MEDS: LEVOFLOXACIN 500 MG TAB PO SCH (11:03)
[2017-11-08] MEDS ORDERED: VANCOMYCIN 1,500 MG in SODIUM CHLORIDE 0.9% 250 ML IVPB SCH (12:00)
--- NOTE | 2017-11-08 12:06 | P.PN ---
Subjective Principal diagnosis: Patient resting in bed. Less erythema to all abscess on abdomen. Patient due for paracentesis recommended nurse contact Dr. Wallace regarding safety of doing paracentesis with the abscess Objective - Vital Signs Vital signs: Vital Signs Temp 97.3 F L 11/08/17 06:15 Pulse 80 11/08/17 11:33 Resp 16 11/08/17 08:23 BP 105/68 11/08/17 06:15 Pulse Ox 95 11/08/17 06:15 Intake & Output 11/07/17 11/08/17 11/08/17 18:59 06:59 18:59 Intake Total 440 Balance 440 Weight 83.1 kg Intake: Oral 440 Other: Voiding Method Toilet Toilet Urinal Urinal # Voids 3 3 # Bowel Movements 0 - Constitutional General appearance: Present: mild distress - EENT Eyes: Present: PERRLA Ears: bilateral: normal - Neck Neck: Present: normal ROM - Respiratory Respiratory: bilateral: diminished - Cardiovascular Rhythm: irregularly irregular - Gastrointestinal General gastrointestinal: Present: distended, soft - Integumentary Integumentary: Present: normal - Neurologic Neurologic: Present: CNII-XII intact - Musculoskeletal Musculoskeletal: Present: generalized weakness - Psychiatric Psychiatric: Present: A&O x's 3, appropriate affect, intact judgment & insight - Labs CBC & Chem 7: 11/08/17 07:16 11/08/17 07:16 Labs: Abnormal Lab Results - Last 24 Hours (Table) 11/07/17 11/08/17 11/08/17 Range/Units 21:25 06:49 07:16 PT (9.0-12.0) sec INR (<1.2) BUN 23 H (9-20) mg/dL Creatinine 1.66 H (0.66-1.25) mg/dL POC Glucose (mg/dL) 100 H (75-99) mg/dL Urine Protein Trace H (Negative) Urine Bacteria Occasional H (None) /hpf Urine Mucus Rare H (None) /hpf 11/08/17 Range/Units 09:17 PT 12.2 H (9.0-12.0) sec INR 1.3 H (<1.2) BUN (9-20) mg/dL Creatinine (0.66-1.25) mg/dL POC Glucose (mg/dL) (75-99) mg/dL Urine Protein (Negative) Urine Bacteria (None) /hpf Urine Mucus (None) /hpf Microbiology - Last 24 Hours (Table) 11/02/17 11:18 Blood Culture - Preliminary Blood No Growth after 120 hours Assessment and Plan Plan: Assessment Abdominal wall cellulitis/abscess Chronic ascites with frequent paracentesis Pleural effusion Acute renal failure Diabetes type 2 Peripheral vascular disease BPH Heart failure ejection fraction 25% systolic chronic CVA/TIA Coronary disease history of [place] atrial fibrillation History of pulmonary embolism DVT Throat cancer Plan Continue consultation with surgery Dr. Sanches Pulmonary consultation regarding pleural effusion Dr. Wilson regarding peripheral vascular disease Nephrology regarding acute renal failure Possible paracentesis if approved by Dr. Sanches
--- NOTE | 2017-11-08 12:31 | P.PN ---
Progress Note - Text Progress Note Date: 11/08/17 I was asked about the safety of paracentesis. He has had 2 negative cultures with normal WBC and temperature. THis could possibly be a sterile abscess. Recommend this information be given to the radiologist. No plans for surgery. Will followup as needed
[2017-11-08 13:42] VITALS: RESP 20
[2017-11-08 15:47] VITALS: BMI 28.7
--- NOTE | 2017-11-08 17:02 | US ---
EXAMINATION TYPE: US paracentesis abd w/image DATE OF EXAM: 11/08/2017 COMPARISON: NONE HISTORY: Ascites. PROCEDURE: Maximal barrier technique was utilized. The skin overlying a suitable pocket of fluid was localized with ultrasound and the overlying skin was prepped and draped. Ultrasound was utilized with sterile technique. Lidocaine was used for local anesthesia and a skin gilbert made with a scalpel. Catheter was advanced under direct ultrasound guidance into a suitable pocket of fluid and approximately 3.9 liter s of serous fluid were removed. Catheter was withdrawn and hemostasis achieved. There is no immedia te complication; the patient is discharged in stable condition. IMPRESSION: STATUS POST ULTRASOUND GUIDED PARACENTESIS FOR PALLIATION OF ASCITES. THIS PROCEDURE WA S PERFORMED BY THE UNDERSIGNED.
[2017-11-08 17:20] VITALS: BP 145/69; PULSE 80; TEMP 97
--- NOTE | 2017-11-08 17:39 | P.DS ---
Providers Date of admission: 11/03/17 14:46 Expected date of discharge: 11/08/17 Attending physician: Andrews Escobar Consults: 11/02/17 14:17 Consult Physician Stat Consulting Provider: Vy Sanches Consult Reason/Comments: Abdominal wall abscess Do you want consulting provider notified?: Yes 11/03/17 10:03 Consult Physician Urgent Consulting Provider: Oliverio Mc Consult Reason/Comments: pleural effusion Do you want consulting provider notified?: Yes 11/03/17 10:04 Consult Physician Urgent Consulting Provider: Mukul Wilson Consult Reason/Comments: femoral artery occlusion Do you want consulting provider notified?: Yes 11/03/17 14:20 Consult Physician Routine Consulting Provider: Vaughn Chou Consult Reason/Comments: recurrent abscess Do you want consulting provider notified?: Yes 11/07/17 17:29 Consult Physician Routine Consulting Provider: Eber Gardner Consult Reason/Comments: elevated creat Do you want consulting provider notified?: Yes Primary care physician: Andrews Escobar Hospital Course: 62-year-old male of was sent over for admission from family physician office with him cellulitis in the abdomen abdomen. Patient had recent repair of incarcerated hernia. Patient had evaluation by surgeon Dr. Sanches. Patient had evaluation by pulmonology for pleural effusion. Patient had evaluation by Dr. Wilson for peripheral vascular disease decision was made to do with that outpatient. Patient was on Zosyn and vancomycin. Fluid collection appears to be sterile collection. Patient is post paracentesis that was approved per surgeon Assessment Abdominal wall cellulitis recent hernia repair that was incarcerated Chronic ascites with frequent paracentesis Acute renal failure Pleural effusion Peripheral vascular disease History of diabetes type 2 History of heart failure ejection fraction 25% chronic systolic CVA/TIA History of coronary disease with [place] history of atrial fibrillation History of pulmonary embolus and DVT Throat cancer BPH Plan Follow-up with family physician Dr. Andrews Escobar Follow-up with surgeon Dr. Sanches Patient Condition at Discharge: Fair Plan - Discharge Summary Discharge Rx Participant: Yes New Discharge Prescriptions: New Ciprofloxacin HCl [Cipro] 500 mg PO Q12HR #14 tablet metroNIDAZOLE [Flagyl] 500 mg PO BID #14 tab Continue Hydrocodone/Acetaminophen [Alamo 10-325] 1 tab PO Q4H PRN PRN Reason: Pain Ipratropium/Albuterol Sulfate [Combivent Respimat Inhaler] 1 puff INHALATION RT-TID PRN PRN Reason: Shortness Of Breath Atorvastatin [Lipitor] 80 mg PO HS Omeprazole [PriLOSEC] 20 mg PO BID #60 capsule. Cyclobenzaprine [Flexeril] 10 mg PO TID PRN PRN Reason: Pain Albuterol Inhaler [Ventolin Hfa Inhaler] 1 puff INHALATION RT-Q6H PRN PRN Reason: Shortness Of Breath Spironolactone [Aldactone] 25 mg PO BID Furosemide [Lasix] 40 mg PO BID #60 tablet metFORMIN HCL [Glucophage] 500 mg PO DAILY metFORMIN HCL 1,000 mg PO HS Albuterol Nebulized [Ventolin Nebulized] 2.5 mg INHALATION RT-QID PRN PRN Reason: Shortness Of Breath Isosorbide Mononitrate ER [Imdur] 30 mg PO DAILY #30 tab.er.24h Nitroglycerin Sl Tabs [Nitrostat] 0.4 mg SUBLINGUAL Q5M PRN #100 tab PRN Reason: Chest Pain Enoxaparin [Lovenox] 80 mg SQ Q12H Metoprolol Tartrate [Lopressor] 50 mg PO BID Discharge Medication List Hydrocodone/Acetaminophen [Alamo 10-325] 1 tab PO Q4H PRN 02/01/14 [History] Ipratropium/Albuterol Sulfate [Combivent Respimat Inhaler] 1 puff INHALATION RT- TID PRN 02/01/14 [History] Atorvastatin [Lipitor] 80 mg PO HS 04/13/14 [History] Omeprazole [PriLOSEC] 20 mg PO BID #60 capsule. 04/27/14 [Rx] Cyclobenzaprine [Flexeril] 10 mg PO TID PRN 05/10/14 [History] Albuterol Inhaler [Ventolin Hfa Inhaler] 1 puff INHALATION RT-Q6H PRN 10/27/15 [ History] Spironolactone [Aldactone] 25 mg PO BID 01/24/16 [History] Furosemide [Lasix] 40 mg PO BID #60 tablet 09/04/16 [Rx] metFORMIN HCL 1,000 mg PO HS 01/14/17 [History] metFORMIN HCL [Glucophage] 500 mg PO DAILY 01/14/17 [History] Albuterol Nebulized [Ventolin Nebulized] 2.5 mg INHALATION RT-QID PRN 09/24/17 [ History] Enoxaparin [Lovenox] 80 mg SQ Q12H 09/28/17 [History] Isosorbide Mononitrate ER [Imdur] 30 mg PO DAILY #30 tab.er.24h 09/28/17 [Rx] Nitroglycerin Sl Tabs [Nitrostat] 0.4 mg SUBLINGUAL Q5M PRN #100 tab 09/28/17 [ Rx] Metoprolol Tartrate [Lopressor] 50 mg PO BID 11/02/17 [History] Ciprofloxacin HCl [Cipro] 500 mg PO Q12HR #14 tablet 11/08/17 [Rx] metroNIDAZOLE [Flagyl] 500 mg PO BID #14 tab 11/08/17 [Rx] Follow up Appointment(s)/Referral(s): Andrews Escobar MD [Primary Care Provider] - 11/10/17 10:20 am Vy Sanches DO [Doctor of Osteopathic Medicine] - 11/18/17 2:15 pm Patient Instructions/Handouts: Heart Failure (DC), Type 2 Diabetes in Adults ( DC), Abscess (GEN), Ascites (DC)
--- NOTE | 2017-11-08 19:56 | P.PN ---
Subjective Progress Note Date: 11/08/17 This is a 62-year-old male who gives history that everything started when he was admitted middle september for heart attack. Patient was diagnosed with an acute non-ST elevated myocardial infarction and cardiology recommended medical management at that time as patient is known to have severe cardiomyopathy with EF of 20-25%, chronic systolic heart failure, chronic atrial fibrillation with recurrent ascites with scheduled paracentesis every 2 weeks. Patient states he was discharged home and then noticed that his abdomen started bulging and he had pain and he came back in and was admitted the next day and underwent release of small bowel obstruction, segmental small bowel resection, hernia raphe on September 29 for incarcerated umbilical hernia with Dr. Sanches. Patient was stable and was discharged home on the all come back on the due to atrial fibrillation with RVR and increased swelling and redness at the incision site. A CAT scan was done that showed a subcutaneous fluid collection measuring 9 x 6 x 3 cm. Suspect herniated incarcerated bowel loops but difficult visualization. On September 07, Dr. Sanches performed fine-needle aspiration with removal of 25 mL reddish fluid slightly cloudy. This culture was positive for Klebsiella oxytoca and he had an incisional wound that was positive for Clostridium perfringens. Patient underwent ultrasound-guided therapeutic paracentesis prior to his discharge. Patient was discharged home on 10/12 with Levaquin for 10 days. Patient states that he was doing fine and had seen Dr. Fowler in the office and the wound was healing nicely. He did not have any complaints until he went to his son's wedding on October 30. He states he was doing fine at the wedding but following that his abdomen became very sore , red and swollen. He denies having any fever or chills. Wound also started to drain yellowish serous fluid. Patient does complain of nausea and vomited once. He states he has not had a bowel movement for a couple of days. He states pain continued to worsen and he came into [facility] for evaluation. Patient was found to be afebrile, white count was normal at 9.3 , creatinine 0.5. Lactic acid was 0.9, albumin 3.1, alkaline phosphatase was 486 and this is chronically elevated. Patient was admitted to the [facility] floor and started on vancomycin. Wound culture and blood culture are in progress. CAT scan of the abdomen and pelvis showed successful ventral hernia repair surgery with 2 thin walled fluid collections in the anterior abdominal wall mid abdomen. Differential is abscess, seroma, hematoma. Moderately large amount of abdominal pelvic ascites increased from prior. New small to moderate right pleural effusion. Hepatomegaly with cirrhosis or diffuse fatty filtration redemonstrated. 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 Dr. Sanches did obtain a deep wound culture today. He has been seen in consultation by Dr. 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 Patient is followed by Dr. Sanches. Dr. Mc evaluated small right pleural effusion with no plan for thoracentesis. Patient's last thoracentesis was done on October 25. Patient also has significant history of throat cancer status post radiation with PEG tube placement was subsequently removed. 11/05/2017 the patient continues to feel poorly. He's had some nausea today without significant emesis. His family is present they brought him some outside food that he is happy to try. He is denying fevers or chills but does feel poorly overall. 11/08/2017 the patient has a therapeutic paracentesis performed which gives him further improvement of his abdominal discomfort. The swelling and discomfort of abdominal wall is much improved. Denies other intermittent trouble still has a poor appetite but is eating modestly well today. Does not have fevers or chills. Objective - Vital Signs Vital signs: Vital Signs Temp 97.0 F L 11/08/17 15:00 Pulse 84 11/08/17 16:21 Resp 20 11/08/17 15:27 BP 145/69 11/08/17 15:00 Pulse Ox 96 11/08/17 15:00 Intake & Output 11/08/17 11/08/17 11/09/17 06:59 18:59 06:59 Weight 83.1 kg 83.1 kg Other: Voiding Method Toilet Toilet Urinal # Voids 3 2 - Exam Gen: This is a 64-year-old male. He is ambulating in his room to the bathroom and back and appears to be in no acute distress. He does complain of significant pain to his abdomen. His gait is steady. HEENT: Head is atraumatic, normocephalic. Pupils equal, round. Sclerae is anicteric. Conjunctiva pink. Mucous members of the mouth are slightly dry. Patient is edentulous. No lesions noted. NECK: Supple. No JVD. No lymphadenopathy. No thyromegaly. LUNGS: Scattered rhonchi. No intercostal retractions. HEART: Irregular rate and rhythm. No murmur. ABDOMEN: Less Distended since the paracentesis, positive ascites. Bowel sounds are present. Abdominal wound to the umbilical area with a serous drainage. Surrounding erythema and edema with tenderness. EXTREMITIES: 1+ pedal edema bilaterally. Dorsalis pedis +2 bilaterally . No calf tenderness. NEUROLOGICAL: Patient is awake, alert and oriented x3. Cranial nerves 2 through 12 are grossly intact. - Labs CBC & Chem 7: 11/08/17 07:16 11/08/17 07:16 Labs: Abnormal Lab Results - Last 24 Hours (Table) 11/07/17 11/08/17 11/08/17 Range/Units 21:25 06:49 07:16 PT (9.0-12.0) sec INR (<1.2) BUN 23 H (9-20) mg/dL Creatinine 1.66 H (0.66-1.25) mg/dL POC Glucose (mg/dL) 100 H (75-99) mg/dL Urine Protein Trace H (Negative) Urine Bacteria Occasional H (None) /hpf Urine Mucus Rare H (None) /hpf 11/08/17 Range/Units 09:17 PT 12.2 H (9.0-12.0) sec INR 1.3 H (<1.2) BUN (9-20) mg/dL Creatinine (0.66-1.25) mg/dL POC Glucose (mg/dL) (75-99) mg/dL Urine Protein (Negative) Urine Bacteria (None) /hpf Urine Mucus (None) /hpf Microbiology - Last 24 Hours (Table) 11/02/17 11:18 Blood Culture - Final Blood No Growth after 144 hours Laboratory Results WBC 9.3 k/uL (3.8-10.6) 11/02/17 11:18 RBC 4.69 m/uL (4.30-5.90) 11/02/17 11:18 Hgb 13.4 gm/dL (13.0-17.5) 11/02/17 11:18 Hct 43.1 % (39.0-53.0) 11/02/17 11:18 MCV 92.0 fL (80.0-100.0) 11/02/17 11:18 MCH 28.5 pg (25.0-35.0) 11/02/17 11:18 MCHC 31.0 g/dL (31.0-37.0) 11/02/17 11:18 RDW 15.0 % (11.5-15.5) 11/02/17 11:18 Plt Count 338 k/uL (150-450) 11/08/17 07:16 Neutrophils % 87 % 11/02/17 11:18 Lymphocytes % 4 % 11/02/17 11:18 Monocytes % 6 % 11/02/17 11:18 Eosinophils % 1 % 11/02/17 11:18 Basophils % 0 % 11/02/17 11:18 Neutrophils # 8.1 k/uL (1.3-7.7) H 11/02/17 11:18 Lymphocytes # 0.4 k/uL (1.0-4.8) L 11/02/17 11:18 Monocytes # 0.6 k/uL (0-1.0) 11/02/17 11:18 Eosinophils # 0.1 k/uL (0-0.7) 11/02/17 11:18 Basophils # 0.0 k/uL (0-0.2) 11/02/17 11:18 Hypochromasia Slight 11/02/17 11:18 PT 12.2 sec (9.0-12.0) H 11/08/17 09:17 INR 1.3 (<1.2) H 11/08/17 09:17 APTT 26.6 sec (22.0-30.0) 11/02/17 11:18 Sodium 137 mmol/L (137-145) 11/08/17 07:16 Potassium 4.7 mmol/L (3.5-5.1) 11/08/17 07:16 Chloride 101 mmol/L (98-107) 11/08/17 07:16 Carbon Dioxide 27 mmol/L (22-30) 11/08/17 07:16 Anion Gap 9 mmol/L 11/08/17 07:16 BUN 23 mg/dL (9-20) H 11/08/17 07:16 Creatinine 1.66 mg/dL (0.66-1.25) H 11/08/17 07:16 Est GFR (CKD-EPI)AfAm 51 (>60 ml/min/1.73 sqM) 11/08/17 07:16 Est GFR (CKD-EPI)NonAf 44 (>60 ml/min/1.73 sqM) 11/08/17 07:16 Glucose 93 mg/dL (74-99) 11/08/17 07:16 POC Glucose (mg/dL) 100 mg/dL (75-99) H 11/08/17 06:49 POC Glu Risk Compliance Manager ID Jenn Hernandez 11/08/17 06:[address] Glu mg/dL 137 11/02/17 11:18 Hemoglobin A1c 6.4 % (4.0-6.0) H 11/02/17 11:18 Plasma Lactic Acid Narinder 0.9 mmol/L (0.7-2.0) 11/02/17 11:18 Calcium 8.7 mg/dL (8.4-10.2) 11/08/17 07:16 Total Bilirubin 0.9 mg/dL (0.2-1.3) 11/02/17 11:18 AST 31 U/L (17-59) 11/02/17 11:18 ALT 25 U/L (21-72) 11/02/17 11:18 Alkaline Phosphatase 486 U/L (38-126) H 11/02/17 11:18 Total Protein 6.7 g/dL (6.3-8.2) 11/02/17 11:18 Albumin 3.1 g/dL (3.5-5.0) L 11/02/17 11:18 Amylase 35 U/L (30-110) 11/02/17 11:18 Lipase 17 U/L (23-300) L 11/02/17 11:18 Urine Color Yellow 11/07/17 21:25 Urine Appearance Cloudy (Clear) 11/07/17 21:25 Urine pH 5.5 (5.0-8.0) 11/07/17 21:25 Ur Specific Rosamond 1.011 (1.001-1.035) 11/07/17 21:25 Urine Protein Trace (Negative) H 11/07/17 21:25 Urine Glucose (UA) Negative (Negative) 11/07/17 21:25 Urine Ketones Negative (Negative) 11/07/17 21:25 Urine Blood Negative (Negative) 11/07/17 21:25 Urine Nitrite Negative (Negative) 11/07/17 21:25 Urine Bilirubin Negative (Negative) 11/07/17 21:25 Urine Urobilinogen <2.0 mg/dL (<2.0) 11/07/17 21:25 Ur Leukocyte Esterase Negative (Negative) 11/07/17 21:25 Urine RBC <1 /hpf (0-5) 11/07/17 21:25 Urine WBC 1 /hpf (0-5) 11/07/17 21:25 Ur Squamous Epith Cells <1 /hpf (0-4) 11/07/17 21:25 Urine Bacteria Occasional /hpf (None) H 11/07/17 21:25 Hyaline Casts 3 /lpf (0-2) H 11/02/17 11:38 Urine Mucus Rare /hpf (None) H 11/07/17 21:25 Urine Eosinophils % 11/07/17 21:25 Urine Osmolality 407 mosm/kg (50-1400) 11/07/17 21:25 Ur Random Creatinine 88.8 mg/dL 11/07/17 21:25 Ur Random Sodium 46 mmol/L 11/07/17 21:25 Vancomycin Trough 38.8 ug/mL H* 11/05/17 14:07 Random Vancomycin 23.9 ug/mL 11/08/17 07:16 Microbiology 11/02/17 11:18 Blood Blood Culture - Final No Growth after 144 hours 11/04/17 10:45 Abdomen Gram Stain - Final 11/04/17 10:45 Abdomen Wound Culture - Final 11/02/17 11:26 Abdomen Gram Stain - Final 11/02/17 11:26 Abdomen Wound Culture - Final Assessment and Plan (1) Abdominal wall abscess at site of surgical wound Narrative/Plan: 62-year-old male with a complex past medical history presented to Hospital was to be in pain and swelling to the abdominal area. Abscess was found and he has had some surgical repair. He is denying high-grade fevers or chills but is having ongoing infection of the abdominal wall. Does seem to be responding to antibiotic therapy. The vancomycin and Zosyn continue for now while cultures are pending. Local wound care is nonstick dressing. Continue with attempts to improve his nutritional intake which will help his healing. This is discussed with his family who are present. 11/08/2017 patient is improved status post the paracentesis today. Pain is improved. Appetite slowly improved with the fluid removal. No fevers or chills. We'll complete a course of levofloxacin in the home setting for this elevation abdominal wall. We'll follow with the floating operator and enologist in the outpatient setting regarding his chronic refractory ascites. Surgery related to no further needs for surgical intervention at this time. Status: Acute Code(s): T81.4XXA - INFECTION FOLLOWING A PROCEDURE, INITIAL ENCOUNTER SNOMED Code(s): 146251401 (2) Ascites Status: Chronic Code(s): R18.8 - OTHER ASCITES SNOMED Code(s): 709385647
[2017-11-09] MEDS ORDERED: LEVOFLOXACIN 250 MG TAB PO SCH (12:00)
== END 2017-11-08 17:57 | disposition home or self-care (01) | DRG 863 ==
LOC: EC 10:42 → 5MS5E 15:02 → 4MS4W 20:36 → OBSVTOIN 11-03 14:46 → INTOOBSV 11-03 15:18
PROVIDERS: ADMIT Family Medicine; ATTEND Family Medicine
PROC: 0W9G3ZZ Drainage of Peritoneal Cavity, Percutaneous Approach (ICD-10-PCS; principal; 2017-11-08)
DX: T81.4XXA Infection following a procedure, initial encounter (principal); L03.311 Cellulitis of abdominal wall; I50.22 Chronic systolic (congestive) heart failure; N17.9 Acute kidney failure, unspecified; R18.8 Other ascites; J90 Pleural effusion, not elsewhere classified; L02.211 Cutaneous abscess of abdominal wall; E11.51 Type 2 diabetes mellitus with diabetic peripheral angiopathy without gangrene; E78.5 Hyperlipidemia, unspecified; I11.0 Hypertensive heart disease with heart failure; I25.10 Atherosclerotic heart disease of native coronary artery without angina pectoris; I25.2 Old myocardial infarction; F17.210 Nicotine dependence, cigarettes, uncomplicated; I95.9 Hypotension, unspecified; I25.5 Ischemic cardiomyopathy; I48.2 Chronic atrial fibrillation; I69.334 Monoplegia of upper limb following cerebral infarction affecting left non-dominant side; J44.9 Chronic obstructive pulmonary disease, unspecified; N40.0 Benign prostatic hyperplasia without lower urinary tract symptoms; F41.9 Anxiety disorder, unspecified; K57.90 Diverticulosis of intestine, part unspecified, without perforation or abscess without bleeding; M54.9 Dorsalgia, unspecified; R13.10 Dysphagia, unspecified; K21.9 Gastro-esophageal reflux disease without esophagitis; E66.9 Obesity, unspecified; Z68.28 Body mass index [BMI] 28.0-28.9, adult; Z79.899 Other long term (current) drug therapy; Z79.84 Long term (current) use of oral hypoglycemic drugs; Z88.5 Allergy status to narcotic agent; Z92.3 Personal history of irradiation; Z86.718 Personal history of other venous thrombosis and embolism; Z86.711 Personal history of pulmonary embolism; Z85.21 Personal history of malignant neoplasm of larynx; Z90.49 Acquired absence of other specified parts of digestive tract; Z95.5 Presence of coronary angioplasty implant and graft; Z87.440 Personal history of urinary (tract) infections; Z83.3 Family history of diabetes mellitus
CPT/HCPCS: 36415; 49083; 71046; 74177; 76770; 80048; 80053; 80202; 81001; 82150; 82570; 83036; 83605; 83690; 83935; 84300; 85025; 85049; 85610; 85730; 87040; 87070; 87205; 94640; 96361; 96365; 96366; 96368; 96375; 96376; 99285

== ENCOUNTER 2017-11-24 16:35 | Inpatient (IN) | payer OTHER ==
[2017-11-24] MEDS ORDERED: NITROGLYCERIN OINT 1 INCH/GM PACKET TOPICAL STA (16:52)
[2017-11-24] MEDS ORDERED: ALBUTEROL NEBULIZED (CONC) 5 MG, SODIUM CHLORIDE 0.9% NEBULIZ 3 ML INHALATION STA ×2 (16:52)
[2017-11-24] MEDS ORDERED: ASPIRIN 81 MG PO STA (16:52)
[2017-11-24] MEDS ORDERED: IPRATROPIUM 0.5 MG/2.5 ML NEBU INHALATION STA (16:53)
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
[2017-11-24 17:26] LABS: ALT 28 U/L (21-72); AST 31 U/L (17-59); Alkaline Phosphatase 564 U/L (38-126); Anion Gap 10 mmol/L; Blood Urea Nitrogen 16 mg/dL (9-20); Calcium 8.6 mg/dL (8.4-10.2); Carbon Dioxide 29 mmol/L (22-30); Chloride 100 mmol/L (98-107); Glucose 141 mg/dL (74-99); Magnesium 1.5 mg/dL (1.6-2.3); Sodium 139 mmol/L (137-145); Total Bilirubin 1.1 mg/dL (0.2-1.3); Total Protein 6.6 g/dL (6.3-8.2)
[2017-11-24] MEDS: DILTIAZEM 50 MG in SODIUM CHLORIDE 0.9% 40 ML IV SCH ×2 (17:26→23:14)
[2017-11-24 17:27] LABS: Basophils # (A) 0.1 k/uL (0-0.2); Basophils % (A) 1 %; Eosinophils # (A) 0.1 k/uL (0-0.7); Eosinophils % (A) 1 %; HCT 39.6 % (39.0-53.0); HGB 11.9 gm/dL (13.0-17.5); Hypochromasia Marked; Lymphocytes # (A) 0.4 k/uL (1.0-4.8); Lymphocytes % (A) 5 %; MCH 27.2 pg (25.0-35.0); MCV 90.6 fL (80.0-100.0); Mean Platelet Volume 6.7; Monocytes # (A) 0.6 k/uL (0-1.0); Monocytes % (A) 7 %; Neutrophils # (A) 7.1 k/uL (1.3-7.7); Neutrophils % (A) 85 %; Platelet Count 289 k/uL (150-450); RBC 4.37 m/uL (4.30-5.90); RDW 15.5 % (11.5-15.5); WBC 8.4 k/uL (3.8-10.6)
[2017-11-24 17:45] LABS: Creatine Kinase MB 3.7 ng/mL (0.0-2.4); Troponin I 0.021 ng/mL (0.000-0.034)
[2017-11-24 17:52] LABS: INR 1.3 (<1.2); Partial Thromboplastin Time 28.8 sec (22.0-30.0); Prothrombin Time 11.9 sec (9.0-12.0)
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
--- NOTE | 2017-11-24 18:38 | XR ---
EXAMINATION TYPE: XR chest 2V DATE OF EXAM: 11/24/2017 COMPARISON: 11/06/2017 HISTORY: Chest pain TECHNIQUE: Frontal and lateral views of the chest are obtained. FINDINGS: Heart is enlarged. There is pulmonary vascular congestion. There is mild blunting of costo phrenic angles. There are chest leads. IMPRESSION: Mild congestive heart failure that appears worse than last exam. Left lower lobe pneumon ia is possible.
[2017-11-24] MEDS ORDERED: methylPREDNISolone SOD SUCCI 125 MG/2 ML VIAL IV STA (19:04)
[2017-11-24] MEDS ORDERED: MORPHINE SULFATE 2 MG/ML SYRINGE IVP STA (20:12)
[2017-11-24] MEDS ORDERED: FUROSEMIDE 40 MG TAB PO SCH (21:00)
[2017-11-24 21:35] LABS: Glucose,Whole Blood 100 mg/dL (75-99)
[2017-11-24] MEDS: metFORMIN 500 MG TAB PO SCH (21:38)
[2017-11-24] MEDS: METOPROLOL TARTRATE 50 MG TAB PO SCH (21:38)
[2017-11-24] MEDS: ATORVASTATIN 80 MG TAB PO SCH (21:38)
[2017-11-24] MEDS: SPIRONOLACTONE 25 MG TAB PO SCH (21:39)
[2017-11-24] MEDS ORDERED: NITROGLYCERIN SL TABS 0.4 MG TAB SUBLINGUAL PRN (22:03)
[2017-11-24] MEDS ORDERED: TEMAZEPAM 15 MG CAP PO PRN (22:05)
[2017-11-24] MEDS ORDERED: ACETAMINOPHEN TAB 500 MG TAB PO PRN (22:05)
[2017-11-24] MEDS: HYDROcodone/APAP 10-325MG 1 EACH TAB PO PRN (22:44)
[2017-11-24] MEDS: NICOTINE 14MG/24HR PATCH TRANSDERM SCH (22:45)
[2017-11-24] MEDS: ENOXAPARIN 80 MG/0.8 ML SYRINGE SQ SCH (22:45)
[2017-11-24] MEDS ORDERED: LEVOFLOXACIN 500MG-D5W PMX 500 MG in DEXTROSE/WATER 1 100ML.BAG IVPB SCH (23:00)
[2017-11-24] MEDS: methylPREDNISolone SOD SUCCI 125 MG/2 ML VIAL IV SCH (23:13)
--- NOTE | 2017-11-25 | HP ---
HISTORY AND PHYSICAL I am covering for Dr. Andrews Escobar. DATE OF SERVICE: 11/24/2017 CHIEF COMPLAINTS: Shortness of breath and abdominal and chest pain. HISTORY OF PRESENT ILLNESS: This 62-year-old gentleman with a past medical history of multiple medical problems, including COPD, history of cardiomyopathy, ejection fraction 20% to 25%, history of recurrent ascites, history of recent incarcerated umbilical hernia repair, being followed by Dr. Andrews Escobar in the outpatient setting, is complaining of shortness of breath. The patient had increasing shortness of breath at home and was also complaining of abdominal pain felt in the lower part of the abdomen and radiating upwards to the chest and left side of the arm. The patient came to [facility] and was admitted for further evaluation and treatment. There is no history of any fever, rigor or chills. No history of headache, loss of consciousness. The patient has seen Dr. Sanches recently. The patient also had a CT scan done a few weeks ago. The patient also had abdominal paracentesis for 2.3 L previously, most recently by Interventional Radiology. PAST MEDICAL HISTORY: 1. History of recent umbilical hernia repair. 2. History of atrial fibrillation. 3. CAD. 4. CHF. 5. CVA, TIA. 6. Diabetes mellitus. 7. DVT. 8. Tch-AN-yzxjyly-elevation myocardial infarction. 9. History of coronary artery disease, stent. HOME MEDICATIONS: 1. Glucophage 500 mg p.o. daily. 2. Metformin 1000 mg at bedtime. 3. Aldactone 25 mg p.o. b.i.d. 4. Prilosec 20 mg b.i.d. 5. Nitrostat 0.4 sublingually q.5 p.r.n. 6. Lopressor 50 mg p.o. b.i.d. 7. Imdur 30 mg p.o. daily. 8. Combivent 1 puff t.i.d. p.r.n. 9. Mullens 10 mg q.4 p.r.n. 10.Lasix 40 mg b.i.d. 11.Lovenox 80 mg subcutaneously b.i.d. 12.Flexeril 10 mg p.o. t.i.d. p.r.n. 13.Lipitor 80 mg at bedtime. 14.Albuterol 2.5 q.i.d. and p.r.n. ALLERGIES: CODEINE and TORADOL. FAMILY HISTORY: No history of heart disease or strokes in the family. SOCIAL HISTORY: History of smoking. History of THC. REVIEW OF SYSTEMS: ENT: No diminished hearing. No diminished vision. CARDIOVASCULAR SYSTEM: As mentioned earlier. RESPIRATORY SYSTEM: As mentioned earlier. GI: As mentioned earlier. : As mentioned earlier. NERVOUS SYSTEM: No numbness, weakness. ALLERGY/IMMUNOLOGY: No asthma, hayfever. MUSCULOSKELETAL: As mentioned earlier. HEMATOLOGY/ONCOLOGY: As mentioned earlier. ENDOCRINE: Diabetes mellitus. CONSTITUTIONAL: As mentioned earlier. DERMATOLOGY: Negative. RHEUMATOLOGY: Negative. PSYCHIATRY: As mentioned earlier. PHYSICAL EXAMINATION: Patient is alert and oriented x3. Pulse 104, blood pressure 140/81, respiration 16, temperature 97.1, pulse ox 96% on 2 L. HEENT: Conjunctivae normal. Oral mucosa moist. NECK: No jugular venous distention. No carotid bruit. No lymph node enlargement. Accessory muscles of respiration are acting at this time. ABDOMEN: Soft. Mild diffuse distention. Status post recent surgery. Mild diffuse abdominal wall edema present. Mild diffuse tenderness also in the lower part of the abdomen. No guarding. No rigidity. No mass palpable. Bowel sounds diminished. LEGS: Minimal edema bilaterally. NERVOUS SYSTEM: Higher functions as mentioned earlier. Moves all 4 limbs. Mild diffuse weakness. LYMPHATICS: No lymph node palpable in neck, axillae or groin. SKIN: As mentioned earlier. JOINTS: No active deforming arthropathy. Chest x-ray which was reviewed personally by me showed mild CHF, worse than the last exam. The EKG showed atrial fibrillation with fast ventricular rate and ST-T changes. ASSESSMENT: 1. Shortness of breath, possibly multifactorial, with chronic obstructive pulmonary disease, acute exacerbation as well as congestive heart failure, acute exacerbation, ejection 20% to 25%, with acute on chronic systolic dysfunction. 2. Atrial fibrillation with fast ventricular rate. 3. Abdominal and chest pain for evaluation. 4. Recurrent abdominal ascites. 5. History of recent incarcerated ventral hernia repair. 6. History of atrial fibrillation. 7. History of coronary artery disease and stent. 8. History of cerebrovascular accident, transient ischemic attack. 9. Diabetes mellitus, type 2. 10.History of deep venous thrombosis. 11.Gastroesophageal reflux disease. 12.Chronic liver disease and possible cirrhosis of the liver. 13.History of myocardial infarction. 14.History of pulmonary embolus. 15.History of emc-IB-arfhnrk-elevation myocardial infarction. 16.Continued ongoing nicotine dependence. 17.History of throat cancer, status post radiation. 18.History of peripheral vascular disease. 19.History of anxiety. RECOMMENDATIONS AND DISCUSSION: In this 62-year-old gentleman with a past medical history of multiple medical problems, we will monitor the patient closely, continue the current medications, continue with symptomatic treatment. I recommend initiating bronchodilators, empiric antibiotics, IV diuretics. I would also recommend evaluation by Cardiology and Pulmonology. Otherwise, symptomatic treatment of the pain also will be done. Resume the home medications. Overall prognosis is extremely guarded because of multiple complex medical issues. The patient will be started on Cardizem drip at this time. Will adjust the medications. Further recommendations to follow. A copy of this dictation is being forwarded to Dr. Andrews Escobar, who is the primary physician. [id number] / ARELYN: [id number] /
[2017-11-25] MEDS: MORPHINE SULFATE 2 MG/ML SYRINGE IVP PRN ×4 (01:08→13:23)
[2017-11-25] MEDS: ALPRAZolam 0.25 MG TAB PO PRN ×2 (05:02→21:55)
[2017-11-25] MEDS: methylPREDNISolone SOD SUCCI 125 MG/2 ML VIAL IV SCH (05:05)
[2017-11-25] MEDS: PANTOPRAZOLE 40 MG TABLET PO SCH (06:14)
[2017-11-25] MEDS: INSULIN ASPART 100 UNIT/ML 1 ML 10 ML VIAL SQ SCH ×4 (06:16→21:57)
[2017-11-25 06:17] LABS: Glucose,Whole Blood 137 mg/dL (75-99)
[2017-11-25] MEDS ORDERED: Magnesium Replacement Protocol 1 EACH MISC MISCELLANE PRN (06:53)
[2017-11-25 07:05] LABS: Basophils % (A) 0 %; Eosinophils % (A) 1 %; HCT 40.5 % (39.0-53.0); HGB 12.2 gm/dL (13.0-17.5); Hypochromasia Marked; Lymphocytes # (A) 0.2 k/uL (1.0-4.8); Lymphocytes % (A) 3 %; MCH 27.5 pg (25.0-35.0); MCHC 30.1 g/dL (31.0-37.0); MCV 91.2 fL (80.0-100.0); Mean Platelet Volume 6.8; Monocytes # (A) 0.2 k/uL (0-1.0); Monocytes % (A) 3 %; Neutrophils # (A) 7.9 k/uL (1.3-7.7); Neutrophils % (A) 94 %; Platelet Count 317 k/uL (150-450); RBC 4.44 m/uL (4.30-5.90); RDW 15.5 % (11.5-15.5); WBC 8.4 k/uL (3.8-10.6)
[2017-11-25 07:12] LABS: Anion Gap 7 mmol/L; Blood Urea Nitrogen 19 mg/dL (9-20); Calcium 8.6 mg/dL (8.4-10.2); Carbon Dioxide 27 mmol/L (22-30); Chloride 103 mmol/L (98-107); Glucose 136 mg/dL (74-99); Potassium 4.3 mmol/L (3.5-5.1); Sodium 137 mmol/L (137-145)
[2017-11-25] MEDS: MAGNESIUM SULFATE-D5W PMX 1 GM in DEXTROSE/WATER 1 100ML.BAG IVPB SCH ×2 (07:49→10:00)
[2017-11-25] MEDS: FUROSEMIDE 10 MG/ML 4 ML VIAL IV SCH ×3 (07:54→23:59)
[2017-11-25] MEDS: SYMBICORT 160-4.5 MCG INHALER INHALATION SCH ×2 (08:35→20:00)
[2017-11-25] MEDS ORDERED: NON-FORMULARY DRUG (Omeprazole [Prilosec] 20 MG) PO SCH (09:00)
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
[2017-11-25] MEDS: ENOXAPARIN 80 MG/0.8 ML SYRINGE SQ SCH ×2 (10:54→21:56)
[2017-11-25] MEDS: NICOTINE 14MG/24HR PATCH TRANSDERM SCH ×2 (10:55→12:07)
[2017-11-25] MEDS: ISOSORBIDE MONONITRATE ER 30 MG TAB.ER.24H PO SCH (10:55)
[2017-11-25] MEDS: metFORMIN 500 MG TAB PO SCH ×2 (11:00→21:55)
[2017-11-25] MEDS: METOPROLOL TARTRATE 50 MG TAB PO SCH ×2 (11:01→21:56)
[2017-11-25] MEDS: SPIRONOLACTONE 25 MG TAB PO SCH ×2 (11:02→21:56)
[2017-11-25 11:29] LABS: Glucose,Whole Blood 210 mg/dL (75-99)
[2017-11-25 12:05] LABS: Hemoglobin A1C 6.6 % (4.0-6.0)
[2017-11-25] MEDS: IPRATROPIUM-ALBUTEROL 3 ML NEB INHALATION PRN (12:51)
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
[2017-11-25] MEDS ORDERED: MORPHINE ORAL SOLN 10 MG/5 ML CUP PO PRN (15:07)
--- NOTE | 2017-11-25 15:35 | FL ---
MODIFIED SWALLOW / DEGLUTITION STUDY DATE OF EXAM: 11/25/2017 CLINICAL HISTORY: 62-year-old male with left lower lobe pneumonia and history of laryngeal cancer, pr evious known aspiration. PEG tube removed. Reassess for silent aspiration. TECHNIQUE: Deglutition study is performed utilizing thin liquid barium, honey and nectar thick liqui d barium, barium thick applesauce, and barium coated cracker. Total fluoroscopy time: 4.42 minutes. Total images: None. Real-time fluoroscopy support was provided to speech pathology. COMPARISON: None. FINDINGS: There is deep penetration with eventual mild silent aspiration with both thin and nectar thickened li quid consistencies. Honey thickened and pureed/solid consistencies show no convincing penetration or aspiration. There is also decreased laryngeal closure noted. No significant residuals. IMPRESSION: Deep penetration with eventual mild silent aspiration with both thin and nectar liquid consistencies. Decreased laryngeal closure. Please refer to speech therapist notes for further details if necessary.
[2017-11-25 16:39] LABS: Glucose,Whole Blood 135 mg/dL (75-99)
[2017-11-25] MEDS ORDERED: LEVOFLOXACIN 500 MG TAB PO SCH (21:00)
[2017-11-25 21:05] LABS: Glucose,Whole Blood 131 mg/dL (75-99)
[2017-11-25] MEDS: MORPHINE SULFATE IR 15 MG TABLET PO PRN (21:55)
[2017-11-25] MEDS: ATORVASTATIN 80 MG TAB PO SCH (21:56)
[2017-11-26] MEDS: MORPHINE SULFATE IR 15 MG TABLET PO PRN ×5 (02:48→20:53)
[2017-11-26 06:04] LABS: Basophils % (A) 0 %; Eosinophils # (A) 0.2 k/uL (0-0.7); Eosinophils % (A) 2 %; HCT 36.9 % (39.0-53.0); HGB 11.1 gm/dL (13.0-17.5); Hypochromasia Moderate; Lymphocytes # (A) 0.5 k/uL (1.0-4.8); Lymphocytes % (A) 6 %; MCH 27.1 pg (25.0-35.0); MCV 90.3 fL (80.0-100.0); Monocytes # (A) 0.7 k/uL (0-1.0); Monocytes % (A) 7 %; Neutrophils # (A) 7.5 k/uL (1.3-7.7); Neutrophils % (A) 83 %; Platelet Count 318 k/uL (150-450); RBC 4.09 m/uL (4.30-5.90); RDW 15.4 % (11.5-15.5)
[2017-11-26 06:04] LABS: Glucose,Whole Blood 103 mg/dL (75-99)
[2017-11-26 06:10] LABS: Anion Gap 8 mmol/L; Blood Urea Nitrogen 23 mg/dL (9-20); Calcium 8.1 mg/dL (8.4-10.2); Carbon Dioxide 30 mmol/L (22-30); Chloride 97 mmol/L (98-107); Glucose 96 mg/dL (74-99); Magnesium 1.7 mg/dL (1.6-2.3); Potassium 3.7 mmol/L (3.5-5.1); Sodium 135 mmol/L (137-145)
[2017-11-26] MEDS: INSULIN ASPART 100 UNIT/ML 1 ML 10 ML VIAL SQ SCH ×4 (06:19→21:06)
[2017-11-26] MEDS: VANCOMYCIN ORAL SOLUTION 250 MG/5 ML BOTTLE PO SCH ×4 (07:16→23:37)
[2017-11-26] MEDS: PANTOPRAZOLE 40 MG TABLET PO SCH (07:18)
[2017-11-26] MEDS: SYMBICORT 160-4.5 MCG INHALER INHALATION SCH ×2 (08:07→21:08)
[2017-11-26] MEDS: HYDROcodone/APAP 10-325MG 1 EACH TAB PO PRN ×2 (09:56→23:34)
[2017-11-26] MEDS: ISOSORBIDE MONONITRATE ER 30 MG TAB.ER.24H PO SCH (09:57)
[2017-11-26] MEDS: FUROSEMIDE 10 MG/ML 4 ML VIAL IV SCH ×3 (09:57→23:41)
[2017-11-26] MEDS: NICOTINE 14MG/24HR PATCH TRANSDERM SCH (09:58)
[2017-11-26] MEDS: SPIRONOLACTONE 25 MG TAB PO SCH ×2 (09:58→20:52)
[2017-11-26] MEDS: METOPROLOL TARTRATE 50 MG TAB PO SCH ×2 (09:58→20:52)
[2017-11-26] MEDS: metFORMIN 500 MG TAB PO SCH ×2 (09:58→20:53)
[2017-11-26] MEDS: ENOXAPARIN 80 MG/0.8 ML SYRINGE SQ SCH ×2 (11:30→21:40)
[2017-11-26] MEDS: CHERRY FLAVOR 60 ML BOTTLE PO SCH ×3 (11:31→23:36)
[2017-11-26] MEDS: IPRATROPIUM-ALBUTEROL 3 ML NEB INHALATION PRN ×2 (11:44→15:23)
[2017-11-26 11:49] LABS: Glucose,Whole Blood 108 mg/dL (75-99)
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
[2017-11-26] MEDS: ALPRAZolam 0.25 MG TAB PO PRN ×2 (16:42→23:36)
[2017-11-26 17:01] LABS: Glucose,Whole Blood 101 mg/dL (75-99)
--- NOTE | 2017-11-26 17:02 | P.PN ---
Subjective Progress Note Date: 11/25/17 Progress note being dictated for Dr. Pascal. Interval history: This is a 62-year-old gentleman admitted with multiple medical issues including shortness of breath, atrial fibrillation with RVR, abdominal and chest pain, recurrent abdominal ascites. Feeling better, currently reports no diarrhea. Diuresing well on Lasix IV push with 24-hour I& O reflecting a negative fluid balance. Cardizem drip weaned off, heart rate controlled on beta mayelin. Magnesium 1.5, supplemented. Denies chest pain, palpitations or increased shortness of breath. Evaluated by cardiology and pulmonary with recommendations noted. Objective - Vital Signs Vital signs: Vital Signs Temp 97.3 F L 11/25/17 16:06 Pulse 88 11/25/17 16:06 Resp 16 11/25/17 16:06 BP 116/74 11/25/17 16:06 Pulse Ox 98 11/25/17 16:06 Intake & Output 11/24/17 11/25/17 11/25/17 18:59 06:59 18:59 Intake Total 29.083 340 Output Total 150 800 Balance -120.917 -460 Weight 77.111 kg 78.9 kg 78.9 kg Intake: Intake, IV Titration 29.083 100 Amount Diltiazem 50 mg In Sodium 29.083 Chloride 0.9% 40 ml @ 5 MG/HR 5 mls/hr IV .Q10H MARY BETH Rx#:[id number] Magnesium Sulfate-D5w Pmx 100 1 gm In Dextrose/Water 1 100ml.bag @ 100 mls/hr IVPB Q1H MARY BETH Rx#: [id number] Oral 240 Output: Urine 150 800 Other: Voiding Method Toilet Urinal # Voids 2 1 - Exam PHYSICAL EXAM: VITAL SIGNS: As above GENERAL: Sitting up in bed, no acute distress HEENT: Conjunctivae normal. eyes normal. Oral mucosa moist NECK: No JVD. No thyroid enlargement. No LNs CARDIOVASCULAR: S1, S2 muffled. Irregular, systolic murmur RESPIRATION: Breath sounds diminished in the bases. No rhonchi or crackles. Expiratory wheezes throughout. ABDOMEN: Soft, mildly distended , mild diffuse bilateral lower quadrant tenderness.Status post recent surgery-mild edema. Mild ascites. No guarding. no masses palpable.diminished bowel sounds. LEGS: Mild edema. No clubbing, no cyanosis PSYCHIATRY: Alert and oriented -3, mood and affect normal. NERVOUS SYSTEM: Cranial N 2-12 grossly normal. Moves all 4 limbs. Diffuse weakness No focal deficits. - Labs CBC & Chem 7: 11/26/17 05:42 11/26/17 05:42 Labs: Abnormal Lab Results - Last 24 Hours (Table) 11/24/17 11/24/17 11/24/17 Range/Units 17:07 17:07 21:32 Hgb (13.0-17.5) gm/dL MCHC (31.0-37.0) g/dL Neutrophils # (1.3-7.7) k/uL Lymphocytes # (1.0-4.8) k/uL INR 1.3 H (<1.2) Glucose (74-99) mg/dL POC Glucose (mg/dL) 100 H (75-99) mg/dL Hemoglobin A1c (4.0-6.0) % CK-MB (CK-2) 3.7 H (0.0-2.4) ng/mL 11/25/17 11/25/17 11/25/17 Range/Units 06:14 06:34 06:34 Hgb 12.2 L (13.0-17.5) gm/dL MCHC 30.1 L (31.0-37.0) g/dL Neutrophils # 7.9 H (1.3-7.7) k/uL Lymphocytes # 0.2 L (1.0-4.8) k/uL INR (<1.2) Glucose 136 H (74-99) mg/dL POC Glucose (mg/dL) 137 H (75-99) mg/dL Hemoglobin A1c (4.0-6.0) % CK-MB (CK-2) (0.0-2.4) ng/mL 11/25/17 11/25/17 11/25/17 Range/Units 06:34 11:27 16:31 Hgb (13.0-17.5) gm/dL MCHC (31.0-37.0) g/dL Neutrophils # (1.3-7.7) k/uL Lymphocytes # (1.0-4.8) k/uL INR (<1.2) Glucose (74-99) mg/dL POC Glucose (mg/dL) 210 H 135 H (75-99) mg/dL Hemoglobin A1c 6.6 H (4.0-6.0) % CK-MB (CK-2) (0.0-2.4) ng/mL Assessment and Plan Assessment: Shortness of breath, possibly multifactorial with acute COPD exacerbation, acute CHF exacerbation, systolic dysfunction, EF 20-25%. Nonischemic cardiomyopathy with multi-valvular disease. -Atrial fibrillation with RVR in a patient with chronic persistent atrial fibrillation -Abdominal and chest pain for evaluation. Currently reports no diarrhea. Rule out C. difficile colitis if diarrhea resumes. -Recurrent abdominal ascites in a patient with history of chronic liver disease , possible cirrhosis of liver -Recent incarcerated ventral hernia repair -CAD, history of [place], stents -Diabetes mellitus type 2 -History of throat cancer, status post radiation -Gastroesophageal reflux disease -COPD -History of CVA, TIA -Nicotine dependence -Hypomagnesemia Plan: Continue current medication regime ,monitoring and symptomatic treatment. Continue diuresing with IV Lasix. C. difficile colitis culture ordered if further diarrhea. Magnesium supplemented with close monitoring of electrolytes , renal function with repeat labs ordered for a.m. speech therapy consulted. Follow closely with cardiology and pulmonary.further recommendations to follow. The impression and plan of care has been dictated as directed. : I performed a history and examination of this patient, discussed the same with the dictator. I agree with the dictator's note ,documented as a scribe. Any additional findings or plans will be noted.
--- NOTE | 2017-11-26 17:10 | P.PN ---
Subjective Progress Note Date: 11/26/17 Progress note being dictated for Dr. Pascal. Interval history: This is a 62-year-old gentleman admitted with multiple medical issues including shortness of breath, atrial fibrillation with RVR, abdominal and chest pain, recurrent abdominal ascites. Feeling better, currently reports no diarrhea. Diuresing well on Lasix IV push with 24-hour I& O reflecting a negative fluid balance. Cardizem drip weaned off, heart rate controlled on beta mayelin. Magnesium 1.5, supplemented. Denies chest pain, palpitations or increased shortness of breath. Evaluated by cardiology and pulmonary with recommendations noted. 11/26/2017 swallow evaluation reported deep penetration, mild silent aspiration with both thin and nectar thick, decreased laryngeal closure. Speech therapy recommendations noted. tested positive for C. difficile colitis. Afebrile. Objective - Vital Signs Vital signs: Vital Signs Temp 97.9 F 11/26/17 11:30 Pulse 80 11/26/17 15:34 Resp 18 11/26/17 11:30 BP 113/72 11/26/17 11:30 Pulse Ox 98 11/26/17 11:30 Intake & Output 11/25/17 11/26/17 11/26/17 18:59 06:59 18:59 Intake Total 440 540 360 Output Total 800 Balance -360 540 360 Weight 78.9 kg 75.6 kg Intake: IV 60 Invasive Line 1 30 Invasive Line 2 30 Intake, IV Titration 100 Amount Magnesium Sulfate-D5w Pmx 100 1 gm In Dextrose/Water 1 100ml.bag @ 100 mls/hr IVPB Q1H MARY BETH Rx#: [id number] Oral 340 480 360 Output: Urine 800 Other: Voiding Method Toilet Urinal # Voids 1 2 - Exam PHYSICAL EXAM: VITAL SIGNS: As above GENERAL: Sitting up in bed, no acute distress HEENT: Conjunctivae normal. eyes normal. Oral mucosa moist NECK: No JVD. No thyroid enlargement. No LNs CARDIOVASCULAR: S1, S2 muffled. Irregular, controlled ventricular rate, systolic murmur RESPIRATION: Breath sounds diminished in the bases. No rhonchi, fine bibasilar crackles. Expiratory wheezes throughout. ABDOMEN: Soft, mildly distended , mild diffuse bilateral lower quadrant tenderness.Status post recent surgery-mild edema. Mild ascites. No guarding. no masses palpable.diminished bowel sounds. LEGS: Mild edema. No clubbing, no cyanosis PSYCHIATRY: Alert and oriented -3, mood and affect normal. NERVOUS SYSTEM: Cranial N 2-12 grossly normal. Moves all 4 limbs. Diffuse weakness No focal deficits. - Labs CBC & Chem 7: 11/26/17 05:42 11/26/17 05:42 Labs: Abnormal Lab Results - Last 24 Hours (Table) 11/25/17 11/26/17 11/26/17 Range/Units 21:03 00:05 05:42 RBC 4.09 L (4.30-5.90) m/uL Hgb 11.1 L (13.0-17.5) gm/dL Hct 36.9 L (39.0-53.0) % MCHC 30.0 L (31.0-37.0) g/dL Lymphocytes # 0.5 L (1.0-4.8) k/uL Sodium (137-145) mmol/L Chloride (98-107) mmol/L BUN (9-20) mg/dL POC Glucose (mg/dL) 131 H (75-99) mg/dL Calcium (8.4-10.2) mg/dL C. difficile (EIA) Intrp Positive A (Negative) 11/26/17 11/26/17 11/26/17 Range/Units 05:42 06:03 11:44 RBC (4.30-5.90) m/uL Hgb (13.0-17.5) gm/dL Hct (39.0-53.0) % MCHC (31.0-37.0) g/dL Lymphocytes # (1.0-4.8) k/uL Sodium 135 L (137-145) mmol/L Chloride 97 L (98-107) mmol/L BUN 23 H (9-20) mg/dL POC Glucose (mg/dL) 103 H 108 H (75-99) mg/dL Calcium 8.1 L (8.4-10.2) mg/dL C. difficile (EIA) Intrp (Negative) 11/26/17 Range/Units 16:58 RBC (4.30-5.90) m/uL Hgb (13.0-17.5) gm/dL Hct (39.0-53.0) % MCHC (31.0-37.0) g/dL Lymphocytes # (1.0-4.8) k/uL Sodium (137-145) mmol/L Chloride (98-107) mmol/L BUN (9-20) mg/dL POC Glucose (mg/dL) 101 H (75-99) mg/dL Calcium (8.4-10.2) mg/dL C. difficile (EIA) Intrp (Negative) Assessment and Plan Assessment: Shortness of breath, possibly multifactorial with acute COPD exacerbation, acute CHF exacerbation, systolic dysfunction, EF 20-25%. Nonischemic cardiomyopathy with multi-valvular disease. -Atrial fibrillation with RVR in a patient with chronic persistent atrial fibrillation -Abdominal and chest pain for evaluation. Currently reports no diarrhea. Rule out C. difficile colitis if diarrhea resumes. -Recurrent abdominal ascites in a patient with history of chronic liver disease , possible cirrhosis of liver -Recent incarcerated ventral hernia repair -CAD, history of [place], stents -Diabetes mellitus type 2 -History of throat cancer, status post radiation -Gastroesophageal reflux disease -COPD -History of CVA, TIA -Nicotine dependence -Hypomagnesemia Plan: Continue current medication regime ,monitoring and symptomatic treatment. Oral Vancomycin dose increased.lactose-free diet, thickened liquids .Continue diuresing with IV Lasix. Close monitoring of electrolytes, renal function with repeat labs ordered for a.m.further recommendations to follow. The impression and plan of care has been dictated as directed. : I performed a history and examination of this patient, discussed the same with the dictator. I agree with the dictator's note ,documented as a scribe. Any additional findings or plans will be noted.
[2017-11-26] MEDS: ATORVASTATIN 80 MG TAB PO SCH (20:52)
[2017-11-26 20:58] LABS: Glucose,Whole Blood 123 mg/dL (75-99)
[2017-11-27] MEDS: MORPHINE SULFATE IR 15 MG TABLET PO PRN ×6 (00:56→21:18)
[2017-11-27 06:06] LABS: Glucose,Whole Blood 93 mg/dL (75-99)
[2017-11-27] MEDS: PANTOPRAZOLE 40 MG TABLET PO SCH (06:49)
[2017-11-27] MEDS: CHERRY FLAVOR 60 ML BOTTLE PO SCH ×3 (06:53→17:30)
[2017-11-27] MEDS: VANCOMYCIN ORAL SOLUTION 250 MG/5 ML BOTTLE PO SCH ×3 (06:53→17:27)
[2017-11-27] MEDS: INSULIN ASPART 100 UNIT/ML 1 ML 10 ML VIAL SQ SCH ×4 (06:53→21:52)
[2017-11-27 07:45] LABS: Basophils % (A) 1 %; Eosinophils # (A) 0.2 k/uL (0-0.7); Eosinophils % (A) 3 %; HCT 39.1 % (39.0-53.0); HGB 11.7 gm/dL (13.0-17.5); Hypochromasia Marked; Lymphocytes # (A) 0.4 k/uL (1.0-4.8); Lymphocytes % (A) 6 %; MCH 27.4 pg (25.0-35.0); MCV 91.3 fL (80.0-100.0); Monocytes # (A) 0.6 k/uL (0-1.0); Monocytes % (A) 7 %; Neutrophils # (A) 6.2 k/uL (1.3-7.7); Neutrophils % (A) 82 %; Platelet Count 293 k/uL (150-450); RBC 4.29 m/uL (4.30-5.90); RDW 15.5 % (11.5-15.5); WBC 7.6 k/uL (3.8-10.6)
[2017-11-27] MEDS: IPRATROPIUM-ALBUTEROL 3 ML NEB INHALATION PRN ×4 (07:51→21:38)
[2017-11-27] MEDS: SYMBICORT 160-4.5 MCG INHALER INHALATION SCH ×2 (07:52→21:39)
[2017-11-27 08:08] LABS: Anion Gap 10 mmol/L; Blood Urea Nitrogen 27 mg/dL (9-20); Calcium 8.4 mg/dL (8.4-10.2); Carbon Dioxide 36 mmol/L (22-30); Chloride 93 mmol/L (98-107); Glucose 81 mg/dL (74-99); Sodium 139 mmol/L (137-145)
[2017-11-27] MEDS: metFORMIN 500 MG TAB PO SCH ×2 (08:53→20:02)
[2017-11-27] MEDS: ISOSORBIDE MONONITRATE ER 30 MG TAB.ER.24H PO SCH (08:53)
[2017-11-27] MEDS: ENOXAPARIN 80 MG/0.8 ML SYRINGE SQ SCH ×2 (08:53→20:03)
[2017-11-27] MEDS: ALPRAZolam 0.25 MG TAB PO PRN ×2 (08:54→17:27)
[2017-11-27] MEDS: METOPROLOL TARTRATE 50 MG TAB PO SCH ×2 (08:54→20:03)
[2017-11-27] MEDS: NICOTINE 14MG/24HR PATCH TRANSDERM SCH (08:54)
[2017-11-27] MEDS: FUROSEMIDE 10 MG/ML 4 ML VIAL IV SCH ×2 (10:36→16:10)
[2017-11-27] MEDS: SPIRONOLACTONE 25 MG TAB PO SCH ×2 (10:36→20:02)
[2017-11-27 12:00] LABS: Glucose,Whole Blood 101 mg/dL (75-99)
[2017-11-27] MEDS ORDERED: VANCOMYCIN IV PER PHARMACY 1 EACH MISC MISCELLANE PRN (13:07)
[2017-11-27] MEDS ORDERED: VANCOMYCIN 1,250 MG in SODIUM CHLORIDE 0.9% 250 ML IVPB STA (13:07)
[2017-11-27 16:49] LABS: Glucose,Whole Blood 92 mg/dL (75-99)
--- NOTE | 2017-11-27 17:13 | PN ---
PROGRESS NOTE DATE OF SERVICE: 11/27/2017 This 62-year-old gentleman admitted shortness of breath, multifactorial; COPD exacerbation, CHF acute exacerbation, being closely monitored. Patient also complained of abdominal distention, abdominal pain. Patient recently had 2.3 L of ascitic fluid aspirated. The patient also has some redness of the mid and lower quadrants of the abdomen, also evaluated the patient recently, had surgery with mesh placement for the hernia surgery. The patient has also had C. difficile colitis. Patient started on p.o. vancomycin. PAST MEDICAL HISTORY: Reviewed. REVIEW OF SYSTEMS: CARDIOVASCULAR: No angina. RESPIRATORY: As mentioned earlier. GI: As mentioned earlier. : No dysuria. NERVOUS: No numbness, weakness. CURRENT MEDICATIONS: Reviewed, include: 1. Tylenol 500 mg every 6 hours. 2. [place] 10 mg. 3. DuoNeb q.i.d. and p.r.n. 4. Xanax 0.25 t.i.d. 5. Lipitor. 6. Symbicort 160/4.5 two puffs b.i.d. 7. Flexeril. 8. Lovenox. 9. Lasix. 10.Lactinex. 11.Glucophage. 12.Lopressor. 13.Magnesium. 14.Morphine. 15.Habitrol. 16.Protonix. 17.Aldactone. 18.Restoril. PHYSICAL EXAM: Patient is alert, oriented x3. Pulse is 87. Blood pressure is 107/60, respirations 16, temperature 99.1, pulse ox 96% on 2L. HEENT: Conjunctivae normal. Oral mucosa moist. NECK: No jugular venous distention. No carotid bruits. No lymph node enlargement. CARDIOVASCULAR: S1, S2 muffled. RESPIRATORY: Breath sounds diminished in the bases. A few scattered rhonchi and crackles. ABDOMEN: Soft, obese. Redness and some tenderness in the lower part present. NERVOUS SYSTEM: Higher functions as mentioned earlier. Moves all 4 limbs. No focal motor or sensory deficits. LYMPHATIC: No lymphadenopathy in neck or axillae. SKIN: No ulcer, rash or bleeding. LABS: WBC 11, hemoglobin 11.7. Sodium 139, potassium 4. ASSESSMENT: 1. Shortness of breath, possibly multifactorial chronic obstructive pulmonary disease acute exacerbation as well as congestive heart failure acute exacerbation acute on chronic systolic dysfunction, ejection fraction 20%-25%. 2. Nonischemic cardiomyopathy with multivalvular disease. 3. Atrial fibrillation with rapid ventricular rate with chronic persistent atrial fibrillation. 4. Acute Clostridium difficile colitis. 5. Anterior abdominal wall redness and tenderness, rule out cellulitis. 6. Recurrent abdominal ascites, possibly chronic liver cirrhosis. 7. Recent incarcerated ventral hernia, repaired. 8. History of coronary artery disease, myocardial infarction, stents. 9. Diabetes mellitus type 2. 10.History of throat cancer, status post radiation. 11.Gastroesophageal reflux disease. 12.Chronic obstructive pulmonary disease. 13.Cerebrovascular accident, transient ischemic attack. 14.History of nicotine dependence. 15.Hypomagnesemia. RECOMMENDATIONS AND DISCUSSION: Recommend to continue current medical management and symptomatic treatment. Will initiate IV vancomycin, obtain cultures, infectious disease evaluation. Symptomatic treatment of the pain. Continue the rest of medications. Continue with treatment of C difficile with p.o. vancomycin. Guarded prognosis. Further recommendations to follow. MMODL / IJN: [id number] /
[2017-11-27] MEDS: LACTOBACILLUS ACIDOPH & BULGAR 1 EACH PACKET PO SCH (17:30)
[2017-11-27] MEDS: ATORVASTATIN 80 MG TAB PO SCH (20:03)
[2017-11-27] MEDS: VANCOMYCIN 1,250 MG in SODIUM CHLORIDE 0.9% 250 ML IVPB SCH (20:04)
[2017-11-27 22:08] LABS: Glucose,Whole Blood 132 mg/dL (75-99)
[2017-11-28] MEDS: FUROSEMIDE 10 MG/ML 4 ML VIAL IV SCH ×3 (00:16→16:29)
[2017-11-28] MEDS: ALPRAZolam 0.25 MG TAB PO PRN (01:13)
[2017-11-28] MEDS: MORPHINE SULFATE IR 15 MG TABLET PO PRN ×3 (01:13→10:22)
[2017-11-28] MEDS: VANCOMYCIN ORAL SOLUTION 250 MG/5 ML BOTTLE PO SCH ×4 (01:14→16:30)
[2017-11-28] MEDS: CHERRY FLAVOR 60 ML BOTTLE PO SCH ×4 (01:14→16:30)
[2017-11-28 06:23] LABS: Basophils # (A) 0.1 k/uL (0-0.2); Basophils % (A) 1 %; Eosinophils # (A) 0.2 k/uL (0-0.7); Eosinophils % (A) 3 %; HCT 36.6 % (39.0-53.0); HGB 11.5 gm/dL (13.0-17.5); Hypochromasia Moderate; Lymphocytes # (A) 0.4 k/uL (1.0-4.8); Lymphocytes % (A) 5 %; MCH 28.1 pg (25.0-35.0); MCHC 31.3 g/dL (31.0-37.0); MCV 89.6 fL (80.0-100.0); Mean Platelet Volume 7.1; Monocytes # (A) 0.6 k/uL (0-1.0); Monocytes % (A) 8 %; Neutrophils # (A) 5.7 k/uL (1.3-7.7); Neutrophils % (A) 82 %; Platelet Count 263 k/uL (150-450); RBC 4.09 m/uL (4.30-5.90); RDW 15.5 % (11.5-15.5)
[2017-11-28 06:32] LABS: Calcium 8.3 mg/dL (8.4-10.2); Potassium 3.9 mmol/L (3.5-5.1)
[2017-11-28] MEDS: PANTOPRAZOLE 40 MG TABLET PO SCH (06:36)
[2017-11-28] MEDS: LACTOBACILLUS ACIDOPH & BULGAR 1 EACH PACKET PO SCH ×3 (06:37→16:29)
[2017-11-28] MEDS: INSULIN ASPART 100 UNIT/ML 1 ML 10 ML VIAL SQ SCH ×4 (06:38→21:50)
[2017-11-28 06:58] LABS: Glucose,Whole Blood 86 mg/dL (75-99)
[2017-11-28] MEDS: NICOTINE 14MG/24HR PATCH TRANSDERM SCH (07:19)
[2017-11-28] MEDS: SPIRONOLACTONE 25 MG TAB PO SCH ×2 (07:53→21:55)
[2017-11-28] MEDS: ISOSORBIDE MONONITRATE ER 30 MG TAB.ER.24H PO SCH (07:53)
[2017-11-28] MEDS: METOPROLOL TARTRATE 50 MG TAB PO SCH ×2 (07:53→21:54)
[2017-11-28] MEDS: metFORMIN 500 MG TAB PO SCH ×2 (07:53→21:55)
[2017-11-28] MEDS: VANCOMYCIN 1,250 MG in SODIUM CHLORIDE 0.9% 250 ML IVPB SCH ×2 (07:54→21:55)
[2017-11-28] MEDS: SYMBICORT 160-4.5 MCG INHALER INHALATION SCH ×2 (07:54→19:05)
[2017-11-28] MEDS: ENOXAPARIN 80 MG/0.8 ML SYRINGE SQ SCH ×2 (07:54→21:55)
[2017-11-28] MEDS: IPRATROPIUM-ALBUTEROL 3 ML NEB INHALATION PRN ×2 (08:01→15:43)
--- NOTE | 2017-11-28 08:41 | CONS ---
CONSULTATION DATE OF SERVICE: 11/27/2017. REASON FOR CONSULTATION: 1. C difficile colitis. 2. Possible abdominal wall cellulitis. HISTORY OF PRESENT ILLNESS: The patient is a 62-year-old male with recent multiple admissions to this facility in a patient who did have incarcerated umbilical hernia status post repair of the same by Dr. Sanches in September of 2017. The patient subsequently presented back to the hospital with increasing swelling and redness at the incision site. A CT of the abdomen shows subcutaneous fluid collection . The patient did have an aspirate of that fluid and with culture positive for Klebsiella, Oxytoca and incision wound culture positive for Clostridium perfringens for which the patient has been treated with oral antibiotics in the form of Levaquin. Subsequently, he did have readmission to the hospital in October for an abdominal pain. At that time, he did have cultures done on November 02 and those have been negative as well as on 11/04. The patient was doing okay last week also. Subsequently started having chest pain in addition to his chronic abdominal pain that brought him to the hospital this admission on 11/24/2017. The patient also had some loose stool frequency 3-4 times per day with no blood or mucus in it. Some nausea, but no vomiting. The patient did not have any elevated white count or any fever. However, stool for C diff did come back positive. The patient has been started on oral vancomycin currently getting 250 p.o. every 6 hours. The patient abdominal wounds are currently healed. However, the admitting physician noticed more swelling and erythema to abdominal wound that concerned him and started the patient on vancomycin and Infectious disease was consulted for further recommendations regarding the same. The patient currently denies having any fever or any chills. He did have some dull aching pain to abdominal wall especially around the area of the redness and protuberant. This is more of a dull aching pain 4-5 out of 10 and no radiation. The patient currently denies having any chest pain. Breathing is baseline. No nausea, no vomiting. REVIEW OF SYSTEMS: CONSTITUTIONAL: Positive for weakness. No fever recorded on this admission. Eyes: No complaint. ENT no complaint. Respiratory as per HPI. Cardiovascular as per HPI. Genitourinary no complaint. Gastrointestinal as per HPI. MUSCULOSKELETAL: No complaint. Integument no complaint. Psychological no complaint. Endocrine no complaint. Neurologic no complaint. PAST MEDICAL HISTORY: Atrial fibrillation, coronary artery disease, heart failure, CVA, TIA, diabetes mellitus, DVT, gastroesophageal reflux disease, myocardial infarction, prostate disorder, pulmonary embolism. PAST SURGICAL HISTORY: PTCA with stent, hernia repair, EGD, colonoscopy, incarcerated abdominal hernia repair, paracentesis, multiple. SOCIAL HISTORY: Patient current everyday smoker. The patient did admit to marijuana use but no drinking. FAMILY HISTORY: Mother with history of diabetes mellitus. ALLERGIES: CODEINE and KETOROLAC. MEDICATION: Medications include the patient currently on vancomycin 250 p.o. q.6 hours, IV vancomycin, Restoril, Aldactone, Protonix, Nitrostat, nicotine patch, and Lopressor, Glucophage, Lactinex, Imdur, NovoLog, Lasix, Lovenox, Flexeril, Lipitor, Xanax, [place] and Tylenol. EXAMINATION: Blood pressure 100/57 with a pulse of 88, temperature 97.1. He is 98% on room air. General description is a middle-aged male lying in bed in no distress. No tachypnea or accessory muscles of respiration use. HEENT: Shows slight pallor. No scleral icterus. Oral mucosa membranes are dry. No pharyngeal erythema or thrush. Neck trachea central. No thyromegaly. LUNGS: Unlabored breathing. Decreased breath sounds in the bases. No wheeze or crackles. Heart S1, S2. Regular rate. ABDOMEN: Soft. Very minimal tender to lower abdominal area, currently with no open wound. Mildly tender. No guarding. No rigidity. EXTREMITIES: No edema of feet. Skin examination: No rash or mass palpable. Neurological: Patient is awake, alert, oriented times three. Mood and affect normal. LABS: Hemoglobin is 11.7, white count 7.6, BUN of 27, creatinine 1.0. Electrolytes have been normal. DIAGNOSTIC IMPRESSION/PLAN: 1. Patient admitted to the hospital with abdominal pain and diarrhea in a patient who did have a positive C difficile. The patient has been on admission to this hospital and has been exposed to antibiotic for the abdominal wall abscess. The likely asymptomatic diff colitis. 2. Patient with possible abdominal wall cellulitis in a patient who did have a complicated abdominal history with incarcerated hernia repair complicated by developing of an abscess. Culture did show Klebsiella oxytoca that was back in September. However, did have recent admission in middle of October and at that time cultures were negative. PLAN: 1. Vancomycin 250 p.o. q.6 hours to cover for C difficile colitis to finish adequate course of therapy. 2. Vancomycin pharmacy to dose target of 15 while watching the abdomen closely. If the patient has persistent pain, we will recommend obtaining a CT abdomen and pelvis to make sure no evidence of any sort pressure or deep abscess that may need to be drained. 3. We will follow on his clinical condition and culture to further adjust medication if needed. Thank you for this consultation. We will follow this patient along with you. MMPIETROL / IJN: [id number] /
[2017-11-28 11:21] LABS: Glucose,Whole Blood 86 mg/dL (75-99)
[2017-11-28] MEDS: IOPAMIDOL-300 CONTRAST 30 ML VIAL (ORAL USE) PO PRN ×2 (12:56→14:00)
[2017-11-28] MEDS: HYDROmorphone 1 MG/ML 1 ML SYRINGE IVP PRN ×2 (15:16→21:26)
--- NOTE | 2017-11-28 15:16 | CT ---
EXAMINATION TYPE: CT abdomen pelvis w con DATE OF EXAM: 11/28/2017 COMPARISON: 11/02/2017 HISTORY: abdomen pain CT DLP: 871 mGycm Automated exposure control for dose reduction was used. TECHNIQUE: Helical acquisition of images was performed from the lung bases through the pelvis. CONTRAST: Performed with Oral Contrast and with IV Contrast, patient injected with 100mL mL of Isovue 300. FINDINGS: There are bilateral pleural effusions. Heart is enlarged. There is some infiltrate and atelectasis at the lung bases. There are calcified splenic granulomata. Liver shows no focal defect. There is ascit es. There is no evidence of pancreatic mass. Gallbladder is slightly contracted. Bile ducts are not d ilated. The kidneys show satisfactory contrast opacification. There is a 5 cm cortical cyst on the la teral right kidney. There is no hydronephrosis. There is 2 cm cortical cyst anterior left kidney. The re are multiple small renal calcifications. The delayed images show no significant contrast in the re nal collecting systems. There are numerous diverticula in the sigmoid colon. There are multiple surgi caesar clips in the left mid abdomen. There is oral contrast in the large bowel down to the distal sigmo id colon. There is a single collection of oral contrast that measures 8 cm in the left mid abdomen. T his appears to be markedly dilated loop of small bowel. I see no intestinal wall thickening. The lumbar spine appears intact. Bladder distends smoothly. I see no retroperitoneal adenopathy. Ther e is some fluid in the anterior abdominal wall and subcutaneous tissues over the mid abdomen. This me asures overall 7 x 2.5 cm. IMPRESSION: SUBCUTANEOUS ANTERIOR ABDOMINAL WALL FLUID IS DECREASED SLIGHTLY COMPARED TO LAST EXAM AND CONSISTENT WITH POSTOPERATIVE SEROMA OR HEMATOMA. I DO NOT SEE EVIDENCE OF A MECHANICAL BOWEL OBSTRUCTION. THE ORAL CONTRAST IS DOWN TO THE RECTOSIGMOI D COLON. THERE IS SIGMOID DIVERTICULOSIS WITHOUT DIVERTICULITIS. SURGERY IN THE LEFT MID ABDOMEN WITH A DILATED LOOP OF SMALL BOWEL THAT MEASURES 8 CM AND IS NEW COMP ARED TO OLD EXAM. BILATERAL PLEURAL EFFUSIONS APPEAR UNCHANGED ON THE RIGHT SIDE AND NEW ON THE LEFT SIDE COMPARED TO O LD EXAM. CARDIOMEGALY.
[2017-11-28 16:28] LABS: Glucose,Whole Blood 133 mg/dL (75-99)
[2017-11-28 20:56] LABS: Glucose,Whole Blood 106 mg/dL (75-99)
--- NOTE | 2017-11-28 21:29 | PN ---
PROGRESS NOTE DATE OF SERVICE: 11/28/2017 This 62-year-old gentleman with a past medical history of multiple medical problems who was admitted with shortness of breath and possible multifactorial COPD and CHF acute exacerbation. Patient also complained of lower abdominal pain. Lower abdominal induration also noted. Patient started on empiric antibiotics. Patient also had C difficile positive. Patient had a CT scan of the abdomen and pelvis was also ordered. The CT scan of the abdomen and pelvis done today without IV contrast showed multiple findings and subcutaneous anterior wall fluid collection which was diminished and bilateral pleural effusion was also noted. The patient is being closely monitored at this time. Please also note the patient had abdominal paracentesis 2.3 L. PAST MEDICAL HISTORY: Reviewed. REVIEW OF SYSTEMS: CARDIOVASCULAR: No angina or palpitations. Respiration as mentioned earlier. GASTROINTESTINAL: As mentioned earlier. as mentioned earlier. Nervous system: Diffusely weak. CURRENT MEDICATIONS ARE: Reviewed and include: 1. Tylenol 500 mg q.6h p.r.n. 2. [place] 10 mg q.4. 3. DuoNeb q.i.d. and p.r.n. 4. Xanax 0.25 t.i.d. 5. Lipitor 80 mg q.h.s. 6. Symbicort 160/4.5 two puffs b.i.d. 7. Danielle syrup 5 mL q6h p.r.n. 8. Flexeril 10 mg p.o. t.i.d. 9. Lovenox 80 mg p.o. b.i.d. 10.Lasix 40 mg IV q.8h. 11.Dilaudid 0.5 mg q.4h p.r.n. 12.Imdur 30 mg p.o. daily. 13.Lactinex. 14.Glucophage. 15.Lopressor. 16.Magnesium oxide. 17.MS-IR. 18.Vancomycin. 19.Habitrol 14. 20.Protonix 40 mg b.i.d. 21.Aldactone 25 mg b.i.d. 22.Restoril 50 mg q.h.s. 23.Vancomycin 250 mg p.o. q.6 hours IV. PHYSICAL EXAM: Patient is alert, oriented x3. Pulse 82, blood pressure 100/60, respirations 16, temperature 97.5, pulse ox 98% on room air. HEENT is conjunctivae normal. Oral mucosa moist. Neck is no jugular venous distention. No carotic bruit. No lymph node enlargement. Cardiovascular: S1, S2. Respirations: Breath sounds diminished in the bases. A few scattered rhonchi and crackles. ABDOMEN: Soft, obese. Abdominal wall induration present. No ascites. Legs: No edema. No swelling. NERVOUS SYSTEM: Higher functions as mentioned earlier. Moves all four extremities. No focal motor or sensory deficits. LYMPHATICS: No lymph nodes palpable in the neck, axillae or groin. SKIN: No ulcer, rash or bleeding. LABS: WBC 7, hemoglobin 11.5, sodium 139, potassium 3.9. ASSESSMENT: 1. Shortness of breath possibly multifactorial, chronic obstructive pulmonary disease acute exacerbation as well as congestive heart failure acute exacerbation with acute on chronic systolic dysfunction, ejection fraction 20-25%. 2. Nonischemic cardiomyopathy with multivessel disease. 3. Atrial fibrillation with rapid ventricular rate with chronic persistent atrial fibrillation. 4. Abdominal pain, acute on chronic. 5. Acute C difficile colitis. 6. Anterior abdominal wound redness and tenderness, possible cellulitis. 7. Recurrent abdominal ascites, possibly secondary to chronic liver disease and cirrhosis of liver. 8. Recent incarcerated inguinal hernia repair. 9. History of coronary artery disease myocardial infarction stenosis. 10.Diabetes type 2. 11.History of throat cancer status post radiation. 12.Gastroesophageal reflux disease. 13.Chronic obstructive pulmonary disease. 14.History of cerebrovascular accident, transient ischemic attack. 15.History of nicotine dependence. 16.Hypomagnesemia. RECOMMENDATIONS AND DISCUSSION: Recommend to continue current medications, management and symptomatic treatment. Otherwise, at this time, I would recommend to continue the antibiotics. C difficile colitis. Pain medications, symptomatic treatment. Overall prognosis extremely guarded. CT scan findings are noted. Discussed with the family at length. Understands and agrees. Further recommendations to follow. MMODL / IJN: [id number] /
[2017-11-28] MEDS: ATORVASTATIN 80 MG TAB PO SCH (21:54)
--- NOTE | 2017-11-28 23:11 | PN ---
PROGRESS NOTE DATE OF SERVICE: 11/28/2017. REASON FOR FOLLOWUP: 1. C difficile colitis. 2. Abdominal wall cellulitis. INTERVAL HISTORY: The patient is currently afebrile. He has been breathing comfortably. He is complaining of abdominal pain for which a CT of the abdomen and pelvis was ordered. Pain controlled with pain medication, currently in the form of Dilaudid. No nausea, vomiting. The patient's diarrhea has resolved. Did have one episode last night and none this morning. EXAMINATION: Blood pressure 100/61 with a pulse of 82, temperature of 97.5. He is 98% on room air. GENERAL DESCRIPTION: A middle-aged male lying in bed in no distress. RESPIRATORY SYSTEM: Unlabored breathing. Clear to auscultation anteriorly. HEART: S1, S2. Regular rate and rhythm. ABDOMEN: Soft. He did have minimal swelling in the flank area but no skin breakdown, no drainage. EXTREMITIES: No edema of the feet. LABS: Hemoglobin is 11.5, white count 7.0 with a BUN of 28, creatinine 1.10. CT of the abdomen and pelvis did show overall decreased fluid, but no evidence of any abscess formation. DIAGNOSTIC IMPRESSION AND PLAN: 1. Patient with C difficile colitis. The patient seemed to respond with p.o. vancomycin. Continue and finish the course of therapy. 2. Patient with possible abdominal wall cellulitis with possible seroma collection. CT failed to reveal any abscess and the fluid has decreased in size without antibiotic in the outpatient setting. Recently he did have a aspirate of all of the same fluid and those cultures were negative. Recommend to monitor the patient closely with close outpatient followup. MMODL / IJN: [id number] /
[2017-11-29] MEDS: VANCOMYCIN ORAL SOLUTION 250 MG/5 ML BOTTLE PO SCH ×4 (00:34→20:27)
[2017-11-29] MEDS: CHERRY FLAVOR 60 ML BOTTLE PO SCH ×4 (00:34→20:26)
[2017-11-29] MEDS: FUROSEMIDE 10 MG/ML 4 ML VIAL IV SCH ×3 (00:34→20:26)
[2017-11-29] MEDS: HYDROmorphone 1 MG/ML 1 ML SYRINGE IVP PRN ×6 (01:57→20:48)
[2017-11-29 03:13] LABS: Basophils # (A) 0.1 k/uL (0-0.2); Basophils % (A) 1 %; Eosinophils # (A) 0.3 k/uL (0-0.7); Eosinophils % (A) 4 %; HCT 38.8 % (39.0-53.0); HGB 11.7 gm/dL (13.0-17.5); Hypochromasia Marked; Lymphocytes # (A) 0.4 k/uL (1.0-4.8); Lymphocytes % (A) 6 %; MCH 27.6 pg (25.0-35.0); MCHC 30.1 g/dL (31.0-37.0); MCV 91.9 fL (80.0-100.0); Mean Platelet Volume 7.1; Monocytes # (A) 0.5 k/uL (0-1.0); Monocytes % (A) 7 %; Neutrophils # (A) 6.4 k/uL (1.3-7.7); Neutrophils % (A) 82 %; Platelet Count 266 k/uL (150-450); RBC 4.22 m/uL (4.30-5.90); RDW 15.6 % (11.5-15.5); WBC 7.8 k/uL (3.8-10.6)
[2017-11-29 03:23] LABS: Anion Gap 10 mmol/L; Blood Urea Nitrogen 29 mg/dL (9-20); Calcium 8.6 mg/dL (8.4-10.2); Carbon Dioxide 37 mmol/L (22-30); Chloride 92 mmol/L (98-107); Glucose 104 mg/dL (74-99); Magnesium 1.6 mg/dL (1.6-2.3); Potassium 3.9 mmol/L (3.5-5.1); Sodium 139 mmol/L (137-145)
[2017-11-29] MEDS: MAGNESIUM SULFATE-D5W PMX 1 GM in DEXTROSE/WATER 1 100ML.BAG IVPB SCH ×2 (04:47→06:35)
[2017-11-29 06:13] LABS: Glucose,Whole Blood 145 mg/dL (75-99)
[2017-11-29] MEDS: PANTOPRAZOLE 40 MG TABLET PO SCH (06:35)
[2017-11-29] MEDS: INSULIN ASPART 100 UNIT/ML 1 ML 10 ML VIAL SQ SCH ×4 (06:35→20:28)
[2017-11-29] MEDS: LACTOBACILLUS ACIDOPH & BULGAR 1 EACH PACKET PO SCH ×3 (06:35→20:26)
[2017-11-29] MEDS ORDERED: VANCOMYCIN TROUGH DUE 1 EACH MISC MISCELLANE ONE (08:00)
[2017-11-29] MEDS: IPRATROPIUM-ALBUTEROL 3 ML NEB INHALATION PRN ×3 (08:28→19:32)
[2017-11-29] MEDS: SYMBICORT 160-4.5 MCG INHALER INHALATION SCH ×2 (08:34→19:32)
[2017-11-29] MEDS: VANCOMYCIN 1,250 MG in SODIUM CHLORIDE 0.9% 250 ML IVPB SCH ×2 (09:58→20:30)
[2017-11-29] MEDS: ENOXAPARIN 80 MG/0.8 ML SYRINGE SQ SCH ×2 (10:04→20:28)
[2017-11-29] MEDS: METOPROLOL TARTRATE 50 MG TAB PO SCH ×2 (10:04→20:29)
[2017-11-29] MEDS: ISOSORBIDE MONONITRATE ER 30 MG TAB.ER.24H PO SCH (10:05)
[2017-11-29] MEDS: NICOTINE 14MG/24HR PATCH TRANSDERM SCH ×2 (10:05→12:08)
[2017-11-29] MEDS: metFORMIN 500 MG TAB PO SCH ×2 (10:05→20:51)
[2017-11-29] MEDS: SPIRONOLACTONE 25 MG TAB PO SCH ×2 (10:06→20:29)
[2017-11-29 11:18] LABS: Glucose,Whole Blood 100 mg/dL (75-99)
[2017-11-29 16:35] LABS: Glucose,Whole Blood 143 mg/dL (75-99)
[2017-11-29] MEDS: ATORVASTATIN 80 MG TAB PO SCH (20:28)
[2017-11-29 20:51] LABS: Glucose,Whole Blood 111 mg/dL (75-99)
--- NOTE | 2017-11-29 23:17 | PN ---
PROGRESS NOTE DATE OF SERVICE: 11/29/2017 REASON FOR FOLLOW UP: 1. C. difficile colitis. 2. Question abdominal wall cellulitis. INTERVAL HISTORY: The patient is currently afebrile. He seemed to be breathing comfortably. Denies significant chest pain. He did complain of abdominal pain, although diarrhea has decreased. No nausea, no vomiting. EXAMINATION: Blood pressure 109/66 with a pulse of 85, temperature 96.2. He is 98% on 2 L nasal cannula. General description is a middle-aged male lying in bed in no distress. RESPIRATORY SYSTEM: Unlabored breathing, clear to auscultation anteriorly. HEART: S1, S2. Regular rate and rhythm. ABDOMEN: Soft. Some distention in the lower abdominal area. No guarding or rigidity. LABS: Hemoglobin 11.7, white count 7.8, BUN of 29, creatinine 1.02. DIAGNOSTIC IMPRESSION AND PLAN: 1. Patient with C. difficile colitis. The patient currently on oral vancomycin 250 p.o. q.6h. Continue to finish course of therapy. 2. Patient with question of possible abdominal wall cellulitis. CT abdomen and pelvis did show decrease in the amount of fluid compared to previous CT, more likely representing seroma as he did have an aspirate of that fluid in the middle of this and those cultures were negative. In view of active C. difficile, I recommend further antibiotic therapy and vanco can be discontinued. to apply an abdominal wall band to keep some of the swelling down. Continue supportive care. MMODL / IJN: [id number] /
[2017-11-30] MEDS: FUROSEMIDE 10 MG/ML 4 ML VIAL IV SCH ×4 (00:54→22:21)
[2017-11-30] MEDS: HYDROmorphone 1 MG/ML 1 ML SYRINGE IVP PRN ×6 (00:58→22:18)
[2017-11-30] MEDS: VANCOMYCIN ORAL SOLUTION 250 MG/5 ML BOTTLE PO SCH ×5 (01:17→23:42)
[2017-11-30] MEDS: CHERRY FLAVOR 60 ML BOTTLE PO SCH ×5 (01:17→23:42)
[2017-11-30 07:02] LABS: Glucose,Whole Blood 131 mg/dL (75-99)
[2017-11-30] MEDS: SYMBICORT 160-4.5 MCG INHALER INHALATION SCH ×2 (07:59→20:32)
[2017-11-30] MEDS: INSULIN ASPART 100 UNIT/ML 1 ML 10 ML VIAL SQ SCH ×4 (08:08→21:08)
[2017-11-30 08:36] LABS: Anion Gap 10 mmol/L; Blood Urea Nitrogen 25 mg/dL (9-20); Calcium 8.4 mg/dL (8.4-10.2); Carbon Dioxide 33 mmol/L (22-30); Chloride 95 mmol/L (98-107); Glucose 112 mg/dL (74-99); Sodium 138 mmol/L (137-145)
[2017-11-30] MEDS: ISOSORBIDE MONONITRATE ER 30 MG TAB.ER.24H PO SCH (09:57)
[2017-11-30] MEDS: LACTOBACILLUS ACIDOPH & BULGAR 1 EACH PACKET PO SCH ×3 (09:57→17:58)
[2017-11-30] MEDS: metFORMIN 500 MG TAB PO SCH ×2 (09:58→21:08)
[2017-11-30] MEDS: SPIRONOLACTONE 25 MG TAB PO SCH ×2 (09:58→21:08)
[2017-11-30] MEDS: PANTOPRAZOLE 40 MG TABLET PO SCH (09:58)
[2017-11-30] MEDS: METOPROLOL TARTRATE 50 MG TAB PO SCH ×2 (09:58→21:08)
[2017-11-30] MEDS: ENOXAPARIN 80 MG/0.8 ML SYRINGE SQ SCH ×2 (10:00→21:07)
[2017-11-30 11:29] LABS: Glucose,Whole Blood 143 mg/dL (75-99)
[2017-11-30] MEDS: NICOTINE 14MG/24HR PATCH TRANSDERM SCH (11:30)
[2017-11-30] MEDS: VANCOMYCIN 1,250 MG in SODIUM CHLORIDE 0.9% 250 ML IVPB SCH (11:53)
[2017-11-30] MEDS: IPRATROPIUM-ALBUTEROL 3 ML NEB INHALATION PRN (11:56)
--- NOTE | 2017-11-30 15:51 | P.PN ---
Subjective Progress Note Date: 11/29/17 Progress note being dictated for Dr. Pascal. Interval history: This is a 62-year-old gentleman admitted with multiple medical issues including shortness of breath, atrial fibrillation with RVR, abdominal and chest pain, recurrent abdominal ascites. Feeling better, currently reports no diarrhea. Diuresing well on Lasix IV push with 24-hour I& O reflecting a negative fluid balance. Cardizem drip weaned off, heart rate controlled on beta mayelin. Magnesium 1.5, supplemented. Denies chest pain, palpitations or increased shortness of breath. Evaluated by cardiology and pulmonary with recommendations noted. 11/26/2017 swallow evaluation reported deep penetration, mild silent aspiration with both thin and nectar thick, decreased laryngeal closure. Speech therapy recommendations noted. tested positive for C. difficile colitis. Afebrile. 11/29/2017 maintained on both oral and IV vancomycin. Afebrile. Complains of bilateral lower quadrant abdominal pain. Diarrhea improving. Minimal diet intake with no nausea or vomiting. Diuresing well on Lasix IV push with decrease in weight. Afebrile. Objective - Vital Signs Vital signs: Vital Signs Temp 98 F 11/29/17 08:00 Pulse 88 11/29/17 16:56 Resp 18 11/29/17 12:00 BP 112/71 11/29/17 12:00 Pulse Ox 97 11/29/17 12:00 Intake & Output 11/28/17 11/29/17 11/29/17 18:59 06:59 18:59 Intake Total 412 1566 Balance 412 1566 Weight 72.3 kg 72.3 kg Intake: IV 42 Invasive Line 3 42 Intake, IV Titration 250 350 Amount Magnesium Sulfate-D5w Pmx 100 1 gm In Dextrose/Water 1 100ml.bag @ 100 mls/hr IVPB Q1H [facility] Rx#: [id number] Vancomycin 1,250 mg In 250 Sodium Chloride 0.9% 250 ml @ 125 mls/hr IVPB [facility] Rx#:[id number] Vancomycin 1,250 mg In 250 Sodium Chloride 0.9% 250 ml @ 125 mls/hr IVPB Q12HR [facility] Rx#:[id number] Oral 120 1216 Other: Voiding Method Toilet Toilet Toilet Urinal Urinal Urinal # Voids 1 2 - Exam PHYSICAL EXAM: VITAL SIGNS: As above GENERAL: Sitting up in bed, no acute distress HEENT: Conjunctivae normal. eyes normal. Oral mucosa moist NECK: No JVD. No thyroid enlargement. No LNs CARDIOVASCULAR: S1, S2 muffled. Irregular, controlled ventricular rate, systolic murmur RESPIRATION: Breath sounds diminished in the bases. No rhonchi, fine bibasilar crackles. ABDOMEN: Soft, mildly distended , mild diffuse bilateral lower quadrant tenderness.Status post recent surgery, induration. Abdominal binder present .No guarding. no masses palpable.diminished bowel sounds. LEGS: Mild edema. No clubbing, no cyanosis PSYCHIATRY: Alert and oriented -3, mood and affect normal. NERVOUS SYSTEM: Cranial N 2-12 grossly normal. Moves all 4 limbs. Diffuse weakness No focal deficits. - Labs CBC & Chem 7: 11/29/17 03:00 11/30/17 07:20 Labs: Abnormal Lab Results - Last 24 Hours (Table) 11/28/17 11/29/17 11/29/17 Range/Units 20:55 03:00 03:00 RBC 4.22 L (4.30-5.90) m/uL Hgb 11.7 L (13.0-17.5) gm/dL Hct 38.8 L (39.0-53.0) % MCHC 30.1 L (31.0-37.0) g/dL RDW 15.6 H (11.5-15.5) % Lymphocytes # 0.4 L (1.0-4.8) k/uL Chloride 92 L (98-107) mmol/L Carbon Dioxide 37 H (22-30) mmol/L BUN 29 H (9-20) mg/dL Glucose 104 H (74-99) mg/dL POC Glucose (mg/dL) 106 H (75-99) mg/dL 11/29/17 11/29/17 11/29/17 Range/Units 06:11 11:08 16:33 RBC (4.30-5.90) m/uL Hgb (13.0-17.5) gm/dL Hct (39.0-53.0) % MCHC (31.0-37.0) g/dL RDW (11.5-15.5) % Lymphocytes # (1.0-4.8) k/uL Chloride (98-107) mmol/L Carbon Dioxide (22-30) mmol/L BUN (9-20) mg/dL Glucose (74-99) mg/dL POC Glucose (mg/dL) 145 H 100 H 143 H (75-99) mg/dL Assessment and Plan Assessment: -Shortness of breath, possibly multifactorial with acute COPD exacerbation, acute CHF exacerbation, systolic dysfunction, EF 20-25%. -Nonischemic cardiomyopathy with multi-valvular disease. -Atrial fibrillation with RVR in a patient with chronic persistent atrial fibrillation -Abdominal pain, acute on chronic -Anterior abdominal wound redness, tenderness, possible cellulitis -Acute C. difficile colitis -Recurrent abdominal ascites in a patient with history of chronic liver disease , possible cirrhosis of liver -Recent incarcerated ventral hernia repair -CAD, history of [place], stents -Diabetes mellitus type 2 -History of throat cancer, status post radiation -Gastroesophageal reflux disease -COPD -History of CVA, TIA -Nicotine dependence -Hypomagnesemia Plan: Continue current medication regime ,monitoring and symptomatic treatment. Maintain CHF pathway/Strict I&O. Close monitoring of renal function, electrolytes with repeat labs ordered for a.m. IV Vancomycin has been discontinued, maintained on oral vancomycin. Follow closely with infectious disease. Declining subacute rehab, home care. Further recommendations to follow. The impression and plan of care has been dictated as directed. : I performed a history and examination of this patient, discussed the same with the dictator. I agree with the dictator's note ,documented as a scribe. Any additional findings or plans will be noted.
--- NOTE | 2017-11-30 16:06 | P.PN ---
Subjective Progress Note Date: 11/30/17 Progress note being dictated for Dr. Fu Interval history: This is a 62-year-old gentleman admitted with multiple medical issues including shortness of breath, atrial fibrillation with RVR, abdominal and chest pain, recurrent abdominal ascites. Feeling better, currently reports no diarrhea. Diuresing well on Lasix IV push with 24-hour I& O reflecting a negative fluid balance. Cardizem drip weaned off, heart rate controlled on beta mayelin. Magnesium 1.5, supplemented. Denies chest pain, palpitations or increased shortness of breath. Evaluated by cardiology and pulmonary with recommendations noted. 11/26/2017 swallow evaluation reported deep penetration, mild silent aspiration with both thin and nectar thick, decreased laryngeal closure. Speech therapy recommendations noted. tested positive for C. difficile colitis. Afebrile. 11/29/2017 maintained on both oral and IV vancomycin. Afebrile. Complains of bilateral lower quadrant abdominal pain. Diarrhea improving. Minimal diet intake with no nausea or vomiting. Diuresing well on Lasix IV push with decrease in weight. Afebrile. 11/30/17 maintained on oral vancomycin. Complains of nausea, no emesis. Earlier this morning while in the shower, sustained 22 beat run of wide complex tachycardia, nonsustained, asymptomatic. Magnesium 2.0. Evaluated by cardiology with recommendations for patient to transfer back to [facility]. awaiting telemetry bed.Telemetry currently reporting atrial fibrillation with controlled ventricular rate. Denies chest pain, palpitations. Objective - Vital Signs Vital signs: Vital Signs Temp 98.2 F 11/30/17 08:29 Pulse 88 11/30/17 12:07 Resp 20 11/30/17 11:56 BP 107/71 11/30/17 08:29 Pulse Ox 93 L 11/30/17 08:29 Intake & Output 11/29/17 11/30/17 11/30/17 18:59 06:59 18:59 Intake Total 1566 40 480 Balance 1566 40 480 Weight 72.3 kg 70.5 kg Intake: IV 40 saline flush 40 Intake, IV Titration 350 Amount Magnesium Sulfate-D5w Pmx 100 1 gm In Dextrose/Water 1 100ml.bag @ 100 mls/hr IVPB Q1H [facility] Rx#: [id number] Vancomycin 1,250 mg In 250 Sodium Chloride 0.9% 250 ml @ 125 mls/hr IVPB Q12HR [facility] Rx#:[id number] Oral 1216 480 Other: Voiding Method Toilet Toilet Toilet Urinal # Voids 2 - Exam PHYSICAL EXAM: VITAL SIGNS: As above GENERAL: Sitting up in bed, no acute distress HEENT: Conjunctivae normal. eyes normal. Oral mucosa moist NECK: No JVD. No thyroid enlargement. No LNs CARDIOVASCULAR: S1, S2 muffled. Irregular, controlled ventricular rate, systolic murmur RESPIRATION: Breath sounds diminished in the bases. No rhonchi, fine bibasilar crackles. ABDOMEN: Soft, mildly distended , mild diffuse bilateral lower quadrant tenderness.Status post recent surgery, induration. Abdominal binder present .No guarding. no masses palpable.diminished bowel sounds. LEGS: Mild edema. No clubbing, no cyanosis PSYCHIATRY: Alert and oriented -3, mood and affect normal. NERVOUS SYSTEM: Cranial N 2-12 grossly normal. Moves all 4 limbs. Diffuse weakness No focal deficits. - Labs CBC & Chem 7: 11/29/17 03:00 11/30/17 07:20 Labs: Abnormal Lab Results - Last 24 Hours (Table) 11/29/17 11/29/17 11/30/17 Range/Units 16:33 20:51 07:01 Chloride (98-107) mmol/L Carbon Dioxide (22-30) mmol/L BUN (9-20) mg/dL Glucose (74-99) mg/dL POC Glucose (mg/dL) 143 H 111 H 131 H (75-99) mg/dL 11/30/17 11/30/17 Range/Units 07:20 11:28 Chloride 95 L (98-107) mmol/L Carbon Dioxide 33 H (22-30) mmol/L BUN 25 H (9-20) mg/dL Glucose 112 H (74-99) mg/dL POC Glucose (mg/dL) 143 H (75-99) mg/dL Assessment and Plan Assessment: -Shortness of breath, possibly multifactorial with acute COPD exacerbation, acute CHF exacerbation, systolic dysfunction, EF 20-25%. -Nonischemic cardiomyopathy with multi-valvular disease. -Atrial fibrillation with RVR in a patient with chronic persistent atrial fibrillation -Abdominal pain, acute on chronic -Anterior abdominal wound redness, tenderness, possible cellulitis -Acute C. difficile colitis -Recurrent abdominal ascites in a patient with history of chronic liver disease , possible cirrhosis of liver -Recent incarcerated ventral hernia repair -CAD, history of [place], stents -Diabetes mellitus type 2 -History of throat cancer, status post radiation -Gastroesophageal reflux disease -COPD -History of CVA, TIA -Nicotine dependence -Hypomagnesemia -Nonsustained run Wide-complex tachycardia Plan: Continue current medication regime ,monitoring and symptomatic treatment. Awaiting transfer back to telemetry unit as per cardiology .antibiotics as per ID .Maintain CHF pathway/Strict I&O. Close monitoring of renal function, electrolytes with repeat labs ordered for a.m. further recommendations to follow. The impression and plan of care has been dictated as directed. : I performed a history and examination of this patient, discussed the same with the dictator. I agree with the dictator's note ,documented as a scribe. Any additional findings or plans will be noted.
[2017-11-30 17:43] LABS: Glucose,Whole Blood 140 mg/dL (75-99)
[2017-11-30 20:07] LABS: Glucose,Whole Blood 142 mg/dL (75-99)
[2017-11-30] MEDS: ATORVASTATIN 80 MG TAB PO SCH (21:08)
[2017-11-30] MEDS: ALPRAZolam 0.25 MG TAB PO PRN (21:12)
--- NOTE | 2017-11-30 22:13 | PN ---
PROGRESS NOTE DATE OF SERVICE: 11/30/2017 REASON FOR FOLLOWUP: 1. C difficile colitis. 2. Question of abdominal wall cellulitis. INTERVAL HISTORY: The patient is currently afebrile. He is breathing comfortably. Still having the pain around the abdominal wall area. The patient denies having any chest pain or shortness of breath or cough. Did have one loose stool this morning. PHYSICAL EXAMINATION: Blood pressure 113/73 with a pulse of 85, temperature 98.2. He is 94% on room air. General description is a middle-aged male up in the bed in no distress. RESPIRATORY SYSTEM: Unlabored breathing. Clear to auscultation anteriorly. HEART: S1, S2. Regular rate and rhythm. ABDOMEN: Soft. He did have evidence of incisional hernia, but no redness was noticed. LABS: BUN of 25, creatinine 0.99. DIAGNOSTIC IMPRESSION AND PLAN: 1. Patient with Clostridium difficile colitis, still complaining of some loose stool. Questran will be added for symptomatic relief. Continue with p.o. vancomycin to finish a 2-week course of therapy. 2. Patient with a question of possible abdominal wall cellulitis. Clinically doubtful. He did have a component of incisional hernia and would benefit from an abdominal binder all the time to control some of the swelling he has. Will discontinue vancomycin IV. Continue with supportive care. MMODL / IJN: [id number] /
[2017-12-01] MEDS: HYDROmorphone 1 MG/ML 1 ML SYRINGE IVP PRN ×6 (02:25→22:23)
[2017-12-01] MEDS: LACTOBACILLUS ACIDOPH & BULGAR 1 EACH PACKET PO SCH ×3 (06:13→17:55)
[2017-12-01] MEDS: PANTOPRAZOLE 40 MG TABLET PO SCH (06:13)
[2017-12-01] MEDS: INSULIN ASPART 100 UNIT/ML 1 ML 10 ML VIAL SQ SCH ×4 (06:14→20:41)
[2017-12-01 06:15] LABS: Glucose,Whole Blood 94 mg/dL (75-99)
[2017-12-01] MEDS: CHERRY FLAVOR 60 ML BOTTLE PO SCH ×4 (06:17→22:24)
[2017-12-01] MEDS: VANCOMYCIN ORAL SOLUTION 250 MG/5 ML BOTTLE PO SCH ×4 (06:17→22:24)
[2017-12-01 08:05] LABS: Basophils % (A) 1 %; Eosinophils # (A) 0.3 k/uL (0-0.7); Eosinophils % (A) 4 %; HCT 40.2 % (39.0-53.0); HGB 12.4 gm/dL (13.0-17.5); Hypochromasia Marked; Lymphocytes # (A) 0.5 k/uL (1.0-4.8); Lymphocytes % (A) 7 %; MCH 27.6 pg (25.0-35.0); MCHC 30.9 g/dL (31.0-37.0); MCV 89.4 fL (80.0-100.0); Mean Platelet Volume 7.4; Monocytes # (A) 0.7 k/uL (0-1.0); Monocytes % (A) 10 %; Neutrophils # (A) 5.8 k/uL (1.3-7.7); Neutrophils % (A) 77 %; Platelet Count 310 k/uL (150-450); RBC 4.49 m/uL (4.30-5.90); RDW 15.6 % (11.5-15.5); WBC 7.5 k/uL (3.8-10.6)
[2017-12-01 08:16] LABS: Anion Gap 9 mmol/L; Blood Urea Nitrogen 23 mg/dL (9-20); Calcium 8.8 mg/dL (8.4-10.2); Carbon Dioxide 37 mmol/L (22-30); Chloride 94 mmol/L (98-107); Glucose 95 mg/dL (74-99); Sodium 140 mmol/L (137-145)
[2017-12-01] MEDS: IPRATROPIUM-ALBUTEROL 3 ML NEB INHALATION PRN (08:57)
[2017-12-01] MEDS: SYMBICORT 160-4.5 MCG INHALER INHALATION SCH ×3 (08:57→20:51)
[2017-12-01] MEDS: FUROSEMIDE 10 MG/ML 4 ML VIAL IV SCH (08:58)
[2017-12-01] MEDS: ENOXAPARIN 80 MG/0.8 ML SYRINGE SQ SCH ×2 (08:58→20:40)
[2017-12-01] MEDS: ISOSORBIDE MONONITRATE ER 30 MG TAB.ER.24H PO SCH (08:59)
[2017-12-01] MEDS: metFORMIN 500 MG TAB PO SCH ×2 (08:59→20:40)
[2017-12-01] MEDS: SPIRONOLACTONE 25 MG TAB PO SCH ×2 (08:59→20:39)
[2017-12-01] MEDS: METOPROLOL TARTRATE 50 MG TAB PO SCH ×2 (08:59→20:39)
[2017-12-01] MEDS: NICOTINE 14MG/24HR PATCH TRANSDERM SCH ×2 (08:59→09:08)
[2017-12-01] MEDS: CHOLESTYRAMINE (WITH SUGAR) 4 GM PACKET PO SCH ×2 (08:59→20:40)
[2017-12-01] MEDS: ALPRAZolam 0.25 MG TAB PO PRN ×2 (11:01→20:52)
[2017-12-01 11:38] LABS: Glucose,Whole Blood 94 mg/dL (75-99)
--- NOTE | 2017-12-01 14:49 | P.PN ---
Subjective Progress Note Date: 12/01/17 This is a 62-year-old gentleman with known history of ischemic cardio myopathy with prior myocardial infarctions and prior stent placements, recurrent ascites with recurrent paracentesis, diabetes, hypertension, hyperlipidemia, prior PE, chronic persistent atrial fibrillation, nicotine dependence, COPD, who presents to the hospital on this occasion mainly with symptoms of lower abdominal pain. Patient states he just recently had a paracentesis performed on Wednesday, he did see Dr. Merritt on she is stable examined him and felt that everything looked okay. Patient states overall his belly feels okay, but on his lower abdominal area he gets severe pain especially after he goes to the bathroom. He does state that he is having some diarrhea stools as well. On admission here patient was in A. fib with RVR and was initiated on a Cardizem drip for this reason a cardiology consultation was requested. His blood pressure on arrival here 124/70, heart rate 140, 98% on room air. Blood pressure this morning 132/90 with a heart rate in the 90s, 95% on room air. White blood cell count 8.4, hemoglobin 12.2, platelet count 317. Sodium 137, potassium 4.3, BUN 19, creatinine 0.8. Magnesium level on admission 1.5, AST 31, ALT 28, alk phos 564, troponin 0.021. Chest x-ray shows mild congestive heart failure worsened prior exam, left lower pneumonia possible. KUB shows ascites. Right pleural effusion. Pleural fluid is probably increased as compared with prior exam, ascites is unchanged. Overall the patient states that his breathing is stable, he denies being any more short of breath than usual, denies any fever or chills at home. 12/01/2017 Cardiology was asked to reevaluate the patient because of a run of nonsustained ventricular tachycardia 3 night last night. Potassium level 4.0, magnesium 1.9. Patient is on metoprolol 50 mg one tablet by mouth twice a day. We we will give him a dose of magnesium today. Objective - Vital Signs Vital signs: Vital Signs Temp 97.9 F 12/01/17 04:00 Pulse 80 12/01/17 09:13 Resp 16 12/01/17 04:00 BP 110/58 12/01/17 04:00 Pulse Ox 95 12/01/17 04:00 Intake & Output 11/30/17 12/01/17 12/01/17 18:59 06:59 18:59 Intake Total 4210 40 480 Output Total 300 750 250 Balance 3910 -710 230 Weight 70 kg Intake: IV 40 saline flush 40 Intake, IV Titration 250 Amount Vancomycin 1,250 mg In 250 Sodium Chloride 0.9% 250 ml @ 125 mls/hr IVPB Q12HR [facility] Rx#:[id number] Oral 3960 480 Output: Urine 300 750 250 Other: Voiding Method Toilet Toilet # Voids 4 - Exam PHYSICAL EXAMINATION: GENERAL: 62-year-old gentleman in no acute distress at the time of my examination HEENT: Head is atraumatic, normocephalic. Pupils equal, round. Sclera anicteric. Conjunctiva are clear. Mucous membranes of the mouth are moist. Neck is supple. There is no elevated jugular venous pressure. No carotid bruit is heard. HEART EXAMINATION: Heart S1 and S2 irregularly irregular systolic murmur is heard. CHEST EXAMINATION: lungs reveal scattered coarse rhonchi and wheezing throughout with decreased air exchange noted. ABDOMEN: [ Soft, distended , significant tenderness across the lower abdominal region. Bowel sounds are heard. EXTREMITIES: 1+ peripheral pulses with no evidence of peripheral edema and no calf tenderness noted. NEUROLOGIC patient is awake, alert and oriented X3. . - Labs CBC & Chem 7: 12/01/17 07:24 12/01/17 07:24 Labs: Abnormal Lab Results - Last 24 Hours (Table) 11/30/17 11/30/17 12/01/17 Range/Units 17:30 20:05 07:24 Hgb (13.0-17.5) gm/dL MCHC (31.0-37.0) g/dL RDW (11.5-15.5) % Lymphocytes # (1.0-4.8) k/uL Chloride 94 L (98-107) mmol/L Carbon Dioxide 37 H (22-30) mmol/L BUN 23 H (9-20) mg/dL POC Glucose (mg/dL) 140 H 142 H (75-99) mg/dL 12/01/17 Range/Units 07:24 Hgb 12.4 L (13.0-17.5) gm/dL MCHC 30.9 L (31.0-37.0) g/dL RDW 15.6 H (11.5-15.5) % Lymphocytes # 0.5 L (1.0-4.8) k/uL Chloride (98-107) mmol/L Carbon Dioxide (22-30) mmol/L BUN (9-20) mg/dL POC Glucose (mg/dL) (75-99) mg/dL Assessment and Plan Plan: Assessment and plan #1 abdominal pain in a patient with recurrent ascites and recurrent paracentesis , most recent paracentesis was performed on Wednesday of this week. Surgical consultation has been requested. #2 atrial fibrillation with rapid ventricular response, and a patient with known chronic persistent atrial fibrillation #3 known history of coronary artery disease with prior stent placements #4 diabetes #5 hypertension #6 hyperlipidemia #7 history of CVA and prior TIA #8 COPD #9 nicotine dependence #10 nonischemic cardiomyopathy with most recent echocardiogram with Doppler study performed in September which revealed an ejection fraction of less than 20%, moderate mitral regurg, moderate to severe tricuspid regurg, #11 systolic congestive heart failure acute on chronic, right-sided pleural effusion #12 hypomagnesemia Plan We will continue current dose of beta mayelin, give the patient a dose of magnesium today. DNP note has been reviewed, I agree with a documented findings and plan of care. Patient was seen and examined.
[2017-12-01] MEDS: FUROSEMIDE 40 MG TAB PO SCH (15:58)
[2017-12-01] MEDS: MAGNESIUM SULFATE-D5W PMX 1 GM in DEXTROSE/WATER 1 100ML.BAG IVPB SCH ×2 (15:59→17:55)
[2017-12-01 16:49] LABS: Glucose,Whole Blood 131 mg/dL (75-99)
[2017-12-01] MEDS ORDERED: IPRATROPIUM-ALBUTEROL 3 ML NEB INHALATION PRN (17:39)
--- NOTE | 2017-12-01 17:39 | P.PN ---
Subjective Progress Note Date: 12/01/17 Progress note being dictated for Dr. Fu Interval history: This is a 62-year-old gentleman admitted with multiple medical issues including shortness of breath, atrial fibrillation with RVR, abdominal and chest pain, recurrent abdominal ascites. Feeling better, currently reports no diarrhea. Diuresing well on Lasix IV push with 24-hour I& O reflecting a negative fluid balance. Cardizem drip weaned off, heart rate controlled on beta mayelin. Magnesium 1.5, supplemented. Denies chest pain, palpitations or increased shortness of breath. Evaluated by cardiology and pulmonary with recommendations noted. 11/26/2017 swallow evaluation reported deep penetration, mild silent aspiration with both thin and nectar thick, decreased laryngeal closure. Speech therapy recommendations noted. tested positive for C. difficile colitis. Afebrile. 11/29/2017 maintained on both oral and IV vancomycin. Afebrile. Complains of bilateral lower quadrant abdominal pain. Diarrhea improving. Minimal diet intake with no nausea or vomiting. Diuresing well on Lasix IV push with decrease in weight. Afebrile. 11/30/17 maintained on oral vancomycin. Complains of nausea, no emesis. Earlier this morning while in the shower, sustained 22 beat run of wide complex tachycardia, nonsustained, asymptomatic. Magnesium 2.0. Evaluated by cardiology with recommendations for patient to transfer back to [facility]. awaiting telemetry bed.Telemetry currently reporting atrial fibrillation with controlled ventricular rate. Denies chest pain, palpitations. 12/01/2017 telemetry reporting multiple runs of wide-complex tachycardia, nonsustained, asymptomatic, bigeminy. Receiving magnesium IV supplements. Evaluated by cardiology, recommendations noted. Afebrile. Reports loose diarrhea today X2. Maintained on Questran, oral vancomycin. Short of breath. Objective - Vital Signs Vital signs: Vital Signs Temp 97.2 F L 12/01/17 16:00 Pulse 84 12/01/17 16:00 Resp 20 12/01/17 16:00 BP 109/66 12/01/17 16:00 Pulse Ox 94 L 12/01/17 16:00 Intake & Output 11/30/17 12/01/17 12/01/17 18:59 06:59 18:59 Intake Total 4210 40 480 Output Total 300 750 450 Balance 3910 -710 30 Weight 70 kg Intake: IV 40 saline flush 40 Intake, IV Titration 250 Amount Vancomycin 1,250 mg In 250 Sodium Chloride 0.9% 250 ml @ 125 mls/hr IVPB Q12HR [facility] Rx#:[id number] Oral 3960 480 Output: Urine 300 750 450 Other: Voiding Method Toilet Toilet # Voids 4 1 - Exam PHYSICAL EXAM: VITAL SIGNS: As above GENERAL: Sitting up in bed, no acute distress HEENT: Conjunctivae normal. eyes normal. Oral mucosa moist NECK: No JVD. No thyroid enlargement. No LNs CARDIOVASCULAR: S1, S2 muffled. Irregular, controlled ventricular rate, systolic murmur RESPIRATION: Breath sounds diminished in the bases. Scattered rhonchi. ABDOMEN: Soft, mildly distended , mild diffuse bilateral lower quadrant tenderness.Status post recent surgery, induration. Abdominal binder present .No guarding. no masses palpable.diminished bowel sounds. LEGS: Mild edema. No clubbing, no cyanosis PSYCHIATRY: Alert and oriented -3, mood and affect normal. NERVOUS SYSTEM: Cranial N 2-12 grossly normal. Moves all 4 limbs. Diffuse weakness No focal deficits. - Labs CBC & Chem 7: 12/01/17 07:24 12/01/17 07:24 Labs: Abnormal Lab Results - Last 24 Hours (Table) 11/30/17 11/30/17 12/01/17 Range/Units 17:30 20:05 07:24 Hgb (13.0-17.5) gm/dL MCHC (31.0-37.0) g/dL RDW (11.5-15.5) % Lymphocytes # (1.0-4.8) k/uL Chloride 94 L (98-107) mmol/L Carbon Dioxide 37 H (22-30) mmol/L BUN 23 H (9-20) mg/dL POC Glucose (mg/dL) 140 H 142 H (75-99) mg/dL 12/01/17 12/01/17 Range/Units 07:24 16:29 Hgb 12.4 L (13.0-17.5) gm/dL MCHC 30.9 L (31.0-37.0) g/dL RDW 15.6 H (11.5-15.5) % Lymphocytes # 0.5 L (1.0-4.8) k/uL Chloride (98-107) mmol/L Carbon Dioxide (22-30) mmol/L BUN (9-20) mg/dL POC Glucose (mg/dL) 131 H (75-99) mg/dL Assessment and Plan Assessment: -Shortness of breath, possibly multifactorial with acute COPD exacerbation, acute CHF exacerbation, systolic dysfunction, EF 20-25%. -Nonischemic cardiomyopathy with multi-valvular disease. -Atrial fibrillation with RVR in a patient with chronic persistent atrial fibrillation -Abdominal pain, acute on chronic -Anterior abdominal wound redness, tenderness, possible cellulitis -Acute C. difficile colitis -Recurrent abdominal ascites in a patient with history of chronic liver disease , possible cirrhosis of liver -Recent incarcerated ventral hernia repair -CAD, history of [place], stents -Diabetes mellitus type 2 -History of throat cancer, status post radiation -Gastroesophageal reflux disease -COPD -History of CVA, TIA -Nicotine dependence -Hypomagnesemia -Nonsustained run Wide-complex tachycardia Plan: Continue current medication regime ,monitoring and symptomatic treatment. Lasix decreased, chest x-ray ordered. Nebulized bronchodilators scheduled and when necessary .Close monitoring of electrolytes, renal function with repeat labs ordered for a.m. Antibiotics as per ID . Declining home care, declining rehab. further recommendations to follow. The impression and plan of care has been dictated as directed. : I performed a history and examination of this patient, discussed the same with the dictator. I agree with the dictator's note ,documented as a scribe. Any additional findings or plans will be noted.
[2017-12-01 20:38] LABS: Glucose,Whole Blood 112 mg/dL (75-99)
[2017-12-01] MEDS: ATORVASTATIN 80 MG TAB PO SCH (20:39)
[2017-12-01] MEDS: IPRATROPIUM-ALBUTEROL 3 ML NEB INHALATION SCH (20:50)
[2017-12-01] MEDS: HYDROcodone/APAP 10-325MG 1 EACH TAB PO PRN (20:52)
--- NOTE | 2017-12-01 23:05 | PN ---
PROGRESS NOTE DATE OF SERVICE: 12/01/2017. REASON FOR FOLLOWUP: C. diff. colitis. INTERVAL HISTORY: The patient has been transferred back to telemetry unit because of recurrence of A. fib. as well as PVCs. The patient denies having any chest pain or shortness of breath, cough. Still complaining of abdominal discomfort and did have some loose stool, but no worsening. EXAMINATION: Blood pressure 121/72 with a pulse of 83, temperature 97.9. He is 98% on 2L nasal cannula. General description is a middle-aged male up in the bed in no distress. RESPIRATORY SYSTEM: Unlabored breathing. Clear to auscultation anteriorly. HEART: S1, S2. Regular rate and rhythm. ABDOMEN: Soft, nondistended. No guarding or rigidity. EXTREMITIES: No edema of feet. LABS: Hemoglobin 12.4, white count 7.5. BUN of 23, creatinine 0.96. DIAGNOSTIC IMPRESSION AND PLAN: 1. Patient with Clostridium difficile colitis, currently covered with oral vancomycin. Will continue to finish a 2 week course of therapy. Questran has been added for symptomatic relief. Will see response to the same. 2. The patient has abdominal wall incisional hernia. Clinical suspicion is low for cellulitis. He has been advised to continue with the abdominal binder all the time. Continue with supportive care. MMODL / IJN: [id number] /
[2017-12-02] MEDS: HYDROmorphone 1 MG/ML 1 ML SYRINGE IVP PRN ×5 (02:39→21:28)
[2017-12-02] MEDS: CYCLOBENZAPRINE 10 MG TAB PO PRN ×2 (04:42→10:07)
[2017-12-02 06:23] LABS: Glucose,Whole Blood 113 mg/dL (75-99)
[2017-12-02] MEDS: VANCOMYCIN ORAL SOLUTION 250 MG/5 ML BOTTLE PO SCH ×4 (06:42→23:12)
[2017-12-02] MEDS: CHERRY FLAVOR 60 ML BOTTLE PO SCH ×4 (06:43→23:12)
[2017-12-02] MEDS: PANTOPRAZOLE 40 MG TABLET PO SCH (06:43)
[2017-12-02] MEDS: INSULIN ASPART 100 UNIT/ML 1 ML 10 ML VIAL SQ SCH ×5 (06:44→21:37)
[2017-12-02] MEDS: LACTOBACILLUS ACIDOPH & BULGAR 1 EACH PACKET PO SCH ×3 (06:44→19:02)
[2017-12-02 07:20] LABS: Anion Gap 9 mmol/L; Blood Urea Nitrogen 21 mg/dL (9-20); Calcium 8.8 mg/dL (8.4-10.2); Carbon Dioxide 34 mmol/L (22-30); Chloride 96 mmol/L (98-107); Glucose 103 mg/dL (74-99); Sodium 139 mmol/L (137-145)
[2017-12-02] MEDS: IPRATROPIUM-ALBUTEROL 3 ML NEB INHALATION SCH ×4 (07:53→21:58)
[2017-12-02] MEDS: SYMBICORT 160-4.5 MCG INHALER INHALATION SCH ×3 (07:53→22:07)
[2017-12-02] MEDS: FUROSEMIDE 40 MG TAB PO SCH ×2 (09:38→16:54)
[2017-12-02] MEDS: ISOSORBIDE MONONITRATE ER 30 MG TAB.ER.24H PO SCH (09:38)
[2017-12-02] MEDS: ENOXAPARIN 80 MG/0.8 ML SYRINGE SQ SCH ×2 (09:38→21:29)
[2017-12-02] MEDS: SPIRONOLACTONE 25 MG TAB PO SCH ×2 (09:39→21:30)
[2017-12-02] MEDS: NICOTINE 14MG/24HR PATCH TRANSDERM SCH (09:39)
[2017-12-02] MEDS: CHOLESTYRAMINE (WITH SUGAR) 4 GM PACKET PO SCH ×2 (09:39→21:31)
[2017-12-02] MEDS: METOPROLOL TARTRATE 50 MG TAB PO SCH ×2 (09:39→21:30)
[2017-12-02] MEDS: metFORMIN 500 MG TAB PO SCH ×2 (09:39→21:30)
[2017-12-02] MEDS: ALPRAZolam 0.25 MG TAB PO PRN (09:52)
[2017-12-02 12:00] LABS: Glucose,Whole Blood 142 mg/dL (75-99)
[2017-12-02 15:31] VITALS: BMI 24.0
--- NOTE | 2017-12-02 16:54 | PN ---
PROGRESS NOTE DATE OF SERVICE: 12/02/2017 REASON FOR FOLLOWUP: C difficile colitis. INTERVAL HISTORY: The patient is currently afebrile. He is breathing comfortably. Did not have any bowel movement today. The patient continues to complain of abdominal pain area; maybe slightly better with the pain medication. No nausea or vomiting. Has been tolerating his diet. PHYSICAL EXAMINATION: Blood pressure 114/68 with a pulse of 85, temperature 97. He is 97% on 2 L nasal cannula. General description is a middle-aged male up in the bed in no distress. RESPIRATORY SYSTEM: Unlabored breathing. Clear to auscultation anteriorly. HEART: S1, S2. Regular rate and rhythm. ABDOMEN: Soft. He continues to have some incisional hernia at the periumbilical area. I did not appreciate any significant redness or warmth. LABS: BUN of 21, creatinine 0.89. DIAGNOSTIC IMPRESSION AND PLAN: 1. Patient with Clostridium difficile colitis, for which he will continue oral vancomycin to finish a 2-week course of therapy along with Questran, which should be held if no bowel movement over 24 hours. 2. Patient with chronic pain to the abdominal wall area, possibly related to his incisional hernia. Did not appreciate any redness or warmth. Advised to use the abdominal binder all the time, and a proper-sized binder to help support was discussed with the RN on the floor. KIM / ARELYN: [id number] /
[2017-12-02 17:09] LABS: Glucose,Whole Blood 103 mg/dL (75-99)
--- NOTE | 2017-12-02 17:23 | P.PN ---
Subjective Progress Note Date: 12/02/17 Progress note being dictated for Dr. Fu Interval history: This is a 62-year-old gentleman admitted with multiple medical issues including shortness of breath, atrial fibrillation with RVR, abdominal and chest pain, recurrent abdominal ascites. Feeling better, currently reports no diarrhea. Diuresing well on Lasix IV push with 24-hour I& O reflecting a negative fluid balance. Cardizem drip weaned off, heart rate controlled on beta mayelin. Magnesium 1.5, supplemented. Denies chest pain, palpitations or increased shortness of breath. Evaluated by cardiology and pulmonary with recommendations noted. 11/26/2017 swallow evaluation reported deep penetration, mild silent aspiration with both thin and nectar thick, decreased laryngeal closure. Speech therapy recommendations noted. tested positive for C. difficile colitis. Afebrile. 11/29/2017 maintained on both oral and IV vancomycin. Afebrile. Complains of bilateral lower quadrant abdominal pain. Diarrhea improving. Minimal diet intake with no nausea or vomiting. Diuresing well on Lasix IV push with decrease in weight. Afebrile. 11/30/17 maintained on oral vancomycin. Complains of nausea, no emesis. Earlier this morning while in the shower, sustained 22 beat run of wide complex tachycardia, nonsustained, asymptomatic. Magnesium 2.0. Evaluated by cardiology with recommendations for patient to transfer back to [facility]. awaiting telemetry bed.Telemetry currently reporting atrial fibrillation with controlled ventricular rate. Denies chest pain, palpitations. 12/01/2017 telemetry reporting multiple runs of wide-complex tachycardia, nonsustained, asymptomatic, bigeminy. Receiving magnesium IV supplements. Evaluated by cardiology, recommendations noted. Afebrile. Reports loose diarrhea today X2. Maintained on Questran, oral vancomycin. Short of breath. 12/02/17 telemetry reporting atrial fibrillation with controlled ventricular rate, PVCs, couplets. Diarrhea improved with none reported today. Mild nausea , good diet intake. Abdominal pain improving. Afebrile. Denies chest pain, palpitations. Objective - Vital Signs Vital signs: Vital Signs Temp 97.0 F L 12/02/17 15:56 Pulse 85 12/02/17 15:56 Resp 18 12/02/17 15:56 BP 114/68 12/02/17 15:56 Pulse Ox 97 09/20/18 15:56 Intake & Output 12/01/17 12/02/17 12/02/17 18:59 06:59 18:59 Intake Total 720 120 900 Output Total 450 400 Balance 270 -280 900 Weight 69.5 kg 69.5 kg Intake: IV 20 saline flush 20 Intake, IV Titration 100 Amount Magnesium Sulfate-D5w Pmx 100 1 gm In Dextrose/Water 1 100ml.bag @ 100 mls/hr IVPB Q1H [facility] Rx#: [id number] Oral 720 900 Output: Urine 450 400 Other: Voiding Method Toilet # Voids 1 1 # Bowel Movements 2 - Exam PHYSICAL EXAM: VITAL SIGNS: As above GENERAL: Sitting up in bed, no acute distress HEENT: Conjunctivae normal. eyes normal. Oral mucosa moist NECK: No JVD. No thyroid enlargement. No LNs CARDIOVASCULAR: S1, S2 muffled. Irregular, controlled ventricular rate, systolic murmur RESPIRATION: Breath sounds diminished in the bases. Scattered rhonchi. ABDOMEN: Soft, mildly distended , mild diffuse bilateral lower quadrant tenderness.Status post recent surgery, disc, no warmth Abdominal binder present .No guarding. no masses palpable.diminished bowel sounds. LEGS: Mild edema. No clubbing, no cyanosis PSYCHIATRY: Alert and oriented -3, mood and affect normal. NERVOUS SYSTEM: Cranial N 2-12 grossly normal. Moves all 4 limbs. Diffuse weakness No focal deficits. - Labs CBC & Chem 7: 12/01/17 07:24 12/02/17 06:30 Labs: Abnormal Lab Results - Last 24 Hours (Table) 12/01/17 12/02/17 12/02/17 Range/Units 20:33 06:16 06:30 Chloride 96 L (98-107) mmol/L Carbon Dioxide 34 H (22-30) mmol/L BUN 21 H (9-20) mg/dL Glucose 103 H (74-99) mg/dL POC Glucose (mg/dL) 112 H 113 H (75-99) mg/dL 12/02/17 12/02/17 Range/Units 11:56 17:01 Chloride (98-107) mmol/L Carbon Dioxide (22-30) mmol/L BUN (9-20) mg/dL Glucose (74-99) mg/dL POC Glucose (mg/dL) 142 H 103 H (75-99) mg/dL Assessment and Plan Assessment: -Shortness of breath, possibly multifactorial with acute COPD exacerbation, acute CHF exacerbation, systolic dysfunction, EF 20-25%. -Nonischemic cardiomyopathy with multi-valvular disease. -Atrial fibrillation with RVR in a patient with chronic persistent atrial fibrillation -Abdominal pain, acute on chronic -Anterior abdominal wound redness, tenderness, possible cellulitis -Acute C. difficile colitis -Recurrent abdominal ascites in a patient with history of chronic liver disease , possible cirrhosis of liver -Recent incarcerated ventral hernia repair -CAD, history of [place], stents -Diabetes mellitus type 2 -History of throat cancer, status post radiation -Gastroesophageal reflux disease -COPD -History of CVA, TIA -Nicotine dependence -Hypomagnesemia -Nonsustained run Wide-complex tachycardia Plan: Continue current medication regime ,monitoring and symptomatic treatment. Maintain Nebulized bronchodilators.Close monitoring of electrolytes, renal function with repeat labs ordered for a.m. Antibiotics as per ID . Discharge planning in progress for tomorrow. The impression and plan of care has been dictated as directed. : I performed a history and examination of this patient, discussed the same with the dictator. I agree with the dictator's note ,documented as a scribe. Any additional findings or plans will be noted.
[2017-12-02 20:47] LABS: Glucose,Whole Blood 161 mg/dL (75-99)
[2017-12-02] MEDS: ATORVASTATIN 80 MG TAB PO SCH (21:29)
[2017-12-03] MEDS: HYDROmorphone 1 MG/ML 1 ML SYRINGE IVP PRN ×2 (02:44→08:10)
[2017-12-03 02:56] VITALS: RESP 18
[2017-12-03] MEDS: VANCOMYCIN ORAL SOLUTION 250 MG/5 ML BOTTLE PO SCH ×2 (06:06→11:32)
[2017-12-03] MEDS: CHERRY FLAVOR 60 ML BOTTLE PO SCH ×2 (06:06→11:32)
[2017-12-03] MEDS: LACTOBACILLUS ACIDOPH & BULGAR 1 EACH PACKET PO SCH (06:06)
[2017-12-03] MEDS: PANTOPRAZOLE 40 MG TABLET PO SCH (06:07)
[2017-12-03 06:17] LABS: Glucose,Whole Blood 107 mg/dL (75-99)
[2017-12-03] MEDS: INSULIN ASPART 100 UNIT/ML 1 ML 10 ML VIAL SQ SCH (06:20)
[2017-12-03 07:27] LABS: Anion Gap 7 mmol/L; Blood Urea Nitrogen 20 mg/dL (9-20); Calcium 8.9 mg/dL (8.4-10.2); Carbon Dioxide 35 mmol/L (22-30); Chloride 97 mmol/L (98-107); Glucose 97 mg/dL (74-99); Potassium 4.8 mmol/L (3.5-5.1); Sodium 139 mmol/L (137-145)
[2017-12-03] MEDS: ENOXAPARIN 80 MG/0.8 ML SYRINGE SQ SCH (07:58)
[2017-12-03] MEDS: SPIRONOLACTONE 25 MG TAB PO SCH (07:59)
[2017-12-03] MEDS: METOPROLOL TARTRATE 50 MG TAB PO SCH (07:59)
[2017-12-03] MEDS: ISOSORBIDE MONONITRATE ER 30 MG TAB.ER.24H PO SCH (07:59)
[2017-12-03] MEDS: metFORMIN 500 MG TAB PO SCH (07:59)
[2017-12-03] MEDS: FUROSEMIDE 40 MG TAB PO SCH (07:59)
[2017-12-03] MEDS: NICOTINE 14MG/24HR PATCH TRANSDERM SCH (08:00)
[2017-12-03 08:07] LABS: Basophils % (A) 1 %; Eosinophils # (A) 0.3 k/uL (0-0.7); Eosinophils % (A) 5 %; HCT 37.2 % (39.0-53.0); HGB 11.5 gm/dL (13.0-17.5); Hypochromasia Marked; Lymphocytes # (A) 0.5 k/uL (1.0-4.8); Lymphocytes % (A) 7 %; MCH 27.7 pg (25.0-35.0); MCHC 30.8 g/dL (31.0-37.0); MCV 90.1 fL (80.0-100.0); Mean Platelet Volume 7.4; Monocytes # (A) 0.7 k/uL (0-1.0); Monocytes % (A) 9 %; Neutrophils # (A) 5.8 k/uL (1.3-7.7); Neutrophils % (A) 78 %; Platelet Count 264 k/uL (150-450); RBC 4.13 m/uL (4.30-5.90); RDW 15.5 % (11.5-15.5); WBC 7.4 k/uL (3.8-10.6)
[2017-12-03] MEDS: SYMBICORT 160-4.5 MCG INHALER INHALATION SCH (08:08)
[2017-12-03] MEDS: IPRATROPIUM-ALBUTEROL 3 ML NEB INHALATION SCH ×2 (08:09→11:30)
[2017-12-03 09:14] VITALS: BP 122/75; PULSE 83; TEMP 97.3
--- NOTE | 2017-12-03 10:27 | P.DS ---
Providers Date of admission: 11/24/17 19:05 Expected date of discharge: 12/03/17 Attending physician: Saad Fu Consults: 11/24/17 19:04 Consult Physician Routine Consulting Provider: [facility] Consult Reason/Comments: A. fib with rapid ventricular response, chest pain, pulmonary edema Do you want consulting provider notified?: Yes 11/24/17 22:04 Consult Physician Routine Consulting Provider: Oliverio Mc Consult Reason/Comments: copd Do you want consulting provider notified?: Yes 11/27/17 13:12 Consult Physician Routine Consulting Provider: Francie Guerra Consult Reason/Comments: cellulitis Do you want consulting provider notified?: Yes 11/30/17 11:06 Consult Physician Urgent Consulting Provider: Kassandra Barrios Consult Reason/Comments: Run of -Tach Do you want consulting provider notified?: Yes Primary care physician: Andrews Escobar Hospital Course: FInal DIagnoses: -Shortness of breath, possibly multifactorial with acute COPD exacerbation, acute CHF exacerbation, systolic dysfunction, EF 20-25%. -Nonischemic cardiomyopathy with multi-valvular disease. -Atrial fibrillation with RVR in a patient with chronic persistent atrial fibrillation -Abdominal pain, acute on chronic -Anterior abdominal wound redness, tenderness, possible cellulitis -Acute C. difficile colitis -Recurrent abdominal ascites in a patient with history of chronic liver disease , possible cirrhosis of liver -Recent incarcerated ventral hernia repair -CAD, history of [place], stents -Diabetes mellitus type 2 -History of throat cancer, status post radiation -Gastroesophageal reflux disease -COPD -History of CVA, TIA -Nicotine dependence -Hypomagnesemia -Nonsustained run Wide-complex tachycardia Hospital COurse:This is a 62-year-old gentleman admitted with multiple medical issues including shortness of breath, atrial fibrillation with RVR, abdominal and chest pain, recurrent abdominal ascites. Feeling better, currently reports no diarrhea. Diuresing well on Lasix IV push with 24-hour I&O reflecting a negative fluid balance. Cardizem drip weaned off, heart rate controlled on beta mayelin. Magnesium 1.5, supplemented. Denies chest pain, palpitations or increased shortness of breath. Evaluated by cardiology and pulmonary with recommendations noted. 11/26/2017 swallow evaluation reported deep penetration, mild silent aspiration with both thin and nectar thick, decreased laryngeal closure. Speech therapy recommendations noted. tested positive for C. difficile colitis. Afebrile. 11/29/2017 maintained on both oral and IV vancomycin. Afebrile. Complains of bilateral lower quadrant abdominal pain. Diarrhea improving. Minimal diet intake with no nausea or vomiting. Diuresing well on Lasix IV push with decrease in weight. Afebrile. 11/30/17 maintained on oral vancomycin. Complains of nausea, no emesis. Earlier this morning while in the shower, sustained 22 beat run of wide complex tachycardia, nonsustained, asymptomatic. Magnesium 2.0. Evaluated by cardiology with recommendations for patient to transfer back to [facility]. awaiting telemetry bed.Telemetry currently reporting atrial fibrillation with controlled ventricular rate. Denies chest pain, palpitations. 12/01/2017 telemetry reporting multiple runs of wide-complex tachycardia, nonsustained, asymptomatic, bigeminy. Receiving magnesium IV supplements. Evaluated by cardiology, recommendations noted. Afebrile. Reports loose diarrhea today X2. Maintained on Questran, oral vancomycin. Short of breath. 12/02/17 telemetry reporting atrial fibrillation with controlled ventricular rate, PVCs, couplets. Diarrhea improved with none reported today. Mild nausea , good diet intake. Abdominal pain improving. Afebrile. Denies chest pain, palpitations. 12/03/17 Maintained on oral Vancomycin, diarrhea improved. Minimal abd. discomfort. Significant clinical improvement. Cleared by all consults for discharge. Patient is being discharged home in a stable condition with a guarded prognosis. EXAM: GENERAL: Alert and oriented -3, no acute distress CARDIOVASCULAR: S1, S2 muffled. Irregular, controlled ventricular rate, systolic murmur RESPIRATION: Breath sounds diminished in the bases. ABDOMEN: Soft, mildly distended , mild diffuse tenderness.Positive bowel sounds. NEURO: No focal deficits. The impression and plan of care has been dictated as directed. : I performed a history and examination of this patient, discussed the same with the dictator. I agree with the dictator's note ,documented as a scribe. Any additional findings or plans will be noted. TIme taken: 35 minutes. Patient Condition at Discharge: Stable Plan - Discharge Summary Discharge Rx Participant: Yes New Discharge Prescriptions: New Budesonide-Formot 160-4.5 Mcg [Symbicort 160-4.5 Mcg Inhaler] 2 puff INHALATION RT-BID #1 inh Cholestyramine (with Sugar) [Questran Packet] 4 gm PO BID@999,1999 #24 packet Lactobacillus Acidoph & Bulgar [Lactinex] 1 each PO AC-TID #36 packet Nicotine 14Mg/24Hr Patch [Habitrol] 1 patch TRANSDERM DAILY #30 patch Vancomycin Oral Solution 250 mg PO Q6HR #240 ml Continue Hydrocodone/Acetaminophen [Dameron 10-325] 1 tab PO Q4H PRN PRN Reason: Pain Ipratropium/Albuterol Sulfate [Combivent Respimat Inhaler] 1 puff INHALATION RT-TID PRN PRN Reason: Shortness Of Breath Atorvastatin [Lipitor] 80 mg PO HS Omeprazole [PriLOSEC] 20 mg PO BID #60 capsule. Cyclobenzaprine [Flexeril] 10 mg PO TID PRN PRN Reason: Pain Albuterol Inhaler [Ventolin Hfa Inhaler] 1 puff INHALATION RT-Q6H PRN PRN Reason: Shortness Of Breath Spironolactone [Aldactone] 25 mg PO BID Furosemide [Lasix] 40 mg PO BID #60 tablet metFORMIN HCL [Glucophage] 500 mg PO DAILY metFORMIN HCL 1,000 mg PO HS Albuterol Nebulized [Ventolin Nebulized] 2.5 mg INHALATION RT-QID PRN PRN Reason: Shortness Of Breath Isosorbide Mononitrate ER [Imdur] 30 mg PO DAILY #30 tab.er.24h Nitroglycerin Sl Tabs [Nitrostat] 0.4 mg SUBLINGUAL Q5M PRN #100 tab PRN Reason: Chest Pain Enoxaparin [Lovenox] 80 mg SQ Q12H Metoprolol Tartrate [Lopressor] 50 mg PO BID Discharge Medication List Hydrocodone/Acetaminophen [Dameron 10-325] 1 tab PO Q4H PRN 02/01/14 [History] Ipratropium/Albuterol Sulfate [Combivent Respimat Inhaler] 1 puff INHALATION RT- TID PRN 02/01/14 [History] Atorvastatin [Lipitor] 80 mg PO HS 04/13/14 [History] Omeprazole [PriLOSEC] 20 mg PO BID #60 capsule. 04/27/14 [Rx] Cyclobenzaprine [Flexeril] 10 mg PO TID PRN 05/10/14 [History] Albuterol Inhaler [Ventolin Hfa Inhaler] 1 puff INHALATION RT-Q6H PRN 10/27/15 [ History] Spironolactone [Aldactone] 25 mg PO BID 01/24/16 [History] Furosemide [Lasix] 40 mg PO BID #60 tablet 09/04/16 [Rx] metFORMIN HCL 1,000 mg PO HS 01/14/17 [History] metFORMIN HCL [Glucophage] 500 mg PO DAILY 01/14/17 [History] Albuterol Nebulized [Ventolin Nebulized] 2.5 mg INHALATION RT-QID PRN 09/24/17 [ History] Enoxaparin [Lovenox] 80 mg SQ Q12H 09/28/17 [History] Isosorbide Mononitrate ER [Imdur] 30 mg PO DAILY #30 tab.er.24h 09/28/17 [Rx] Nitroglycerin Sl Tabs [Nitrostat] 0.4 mg SUBLINGUAL Q5M PRN #100 tab 09/28/17 [ Rx] Metoprolol Tartrate [Lopressor] 50 mg PO BID 11/02/17 [History] Budesonide-Formot 160-4.5 Mcg [Symbicort 160-4.5 Mcg Inhaler] 2 puff INHALATION RT-BID #1 inh 12/03/17 [Rx] Cholestyramine (with Sugar) [Questran Packet] 4 gm PO BID@1000,2000 #24 packet 12/03/17 [Rx] Lactobacillus Acidoph & Bulgar [Lactinex] 1 each PO AC-TID #36 packet 12/03/17 [ Rx] Nicotine 14Mg/24Hr Patch [Habitrol] 1 patch TRANSDERM DAILY #30 patch 12/03/17 [ Rx] Vancomycin Oral Solution 250 mg PO Q6HR #240 ml 12/03/17 [Rx] Follow up Appointment(s)/Referral(s): [facility] [Provider Group] - 1 Week Andrews Escobar MD [Primary Care Provider] - 12/07/17 11:20 am (Wednesday) Oliverio Mc MD [STAFF PHYSICIAN] - 1 Week Ambulatory/Diagnostic Orders: Complete Blood Count w/diff [LAB.AMB] Time Frame: 3 Days, Location: None Selected Patient Instructions/Handouts: Pulmonary Edema (DC), Cellulitis (DC), C Diff ( Clostridium Difficile) Infection (DC) Discharge Disposition: HOME WITH HOME HEALTH SERVICES
[2017-12-03] MEDS: CHOLESTYRAMINE (WITH SUGAR) 4 GM PACKET PO SCH (11:07)
[2017-12-03 11:32] LABS: Glucose,Whole Blood 115 mg/dL (75-99)
--- NOTE | 2017-12-03 13:52 | PN ---
PROGRESS NOTE DATE OF SERVICE: 12/03/2017. REASON FOR FOLLOWUP: C difficile colitis. INTERVAL HISTORY: The patient was seen on rounds this morning. The patient has been afebrile. He is breathing comfortably. Diarrhea frequency has decreased. Still has some abdominal pain in the periumbilical area. No nausea, no vomiting. Tolerating a regular diet. EXAMINATION: Blood pressure 122/75 with a pulse of 83, temperature 97.3. He is 94% on room air. General description is a middle aged male up in the bed in no distress. Respiratory system: Unlabored breathing, clear to auscultation anteriorly. Heart S1, S2. Regular rate and rhythm. Abdomen soft. No tenderness. No guarding or rigidity. LABS: Hemoglobin 11.5, white count 7.4, BUN of 20, creatinine 0.92. DIAGNOSTIC IMPRESSION AND PLAN: 1. Patient with C difficile colitis. Continue with oral vancomycin 250 p.o. q.6 hours to finish course of therapy, to take Questran and yogurt as needed. Advised increasing probiotic and intake. 2. Patient who did have pain in the periumbilical area, more likely incisional hernia has been advised to use his binder all the time and if the pain persists may need to follow up with surgery in the outpatient setting. Clinically doubt cellulitis. No need for systemic antibiotic therapy for the same. MMODL / IJN: [id number] /
== END 2017-12-03 13:13 | disposition home health service (06) | DRG 292 ==
LOC: EC 16:35 → 6SEL 19:05 → 5MS5E 11-29 21:20 → 6SEL 11-30 22:05
PROVIDERS: ADMIT Hospitalist; ATTEND Hospitalist
DX: I11.0 Hypertensive heart disease with heart failure (principal); A04.72 Enterocolitis due to Clostridium difficile, not specified as recurrent; I47.2 Ventricular tachycardia; I48.1 Persistent atrial fibrillation; J44.1 Chronic obstructive pulmonary disease with (acute) exacerbation; L03.311 Cellulitis of abdominal wall; R18.8 Other ascites; I50.23 Acute on chronic systolic (congestive) heart failure; E11.51 Type 2 diabetes mellitus with diabetic peripheral angiopathy without gangrene; E78.5 Hyperlipidemia, unspecified; E83.42 Hypomagnesemia; F17.200 Nicotine dependence, unspecified, uncomplicated; G89.29 Other chronic pain; I08.1 Rheumatic disorders of both mitral and tricuspid valves; I25.10 Atherosclerotic heart disease of native coronary artery without angina pectoris; I25.2 Old myocardial infarction; I42.8 Other cardiomyopathies; Z86.711 Personal history of pulmonary embolism; Z86.718 Personal history of other venous thrombosis and embolism; I48.2 Chronic atrial fibrillation; I49.3 Ventricular premature depolarization; I69.334 Monoplegia of upper limb following cerebral infarction affecting left non-dominant side; K21.9 Gastro-esophageal reflux disease without esophagitis; K43.2 Incisional hernia without obstruction or gangrene; K57.90 Diverticulosis of intestine, part unspecified, without perforation or abscess without bleeding; K76.9 Liver disease, unspecified; Z79.84 Long term (current) use of oral hypoglycemic drugs; Z79.899 Other long term (current) drug therapy; Z83.3 Family history of diabetes mellitus; Z85.819 Personal history of malignant neoplasm of unspecified site of lip, oral cavity, and pharynx; Z92.3 Personal history of irradiation; Z95.5 Presence of coronary angioplasty implant and graft; T17.900A Unspecified foreign body in respiratory tract, part unspecified causing asphyxiation, initial encounter; F41.9 Anxiety disorder, unspecified; R13.10 Dysphagia, unspecified; Z88.5 Allergy status to narcotic agent; Z88.8 Allergy status to other drugs, medicaments and biological substances
CPT/HCPCS: 36415; 71046; 74018; 74177; 74230; 80048; 80053; 80202; 82550; 82553; 83036; 83735; 84484; 85025; 85610; 85730; 87324; 93005; 94640; 94760; 96365; 96366; 96375; 99291

== ENCOUNTER 2018-01-12 07:48 | Day surgery (SDC) | payer OTHER ==
[2018-01-12 08:34] VITALS: RESP 20; TEMP 97.8
[2018-01-12 08:37] LABS: Mean Platelet Volume 7.5; Platelet Count 254 k/uL (150-450)
[2018-01-12 08:47] LABS: INR 1.4 (<1.2)
[2018-01-12] MEDS: ALBUMIN HUMAN 25% 50 ML in EMPTY BAG 1 BAG IVPB SCH ×2 (09:57→10:37)
[2018-01-12 10:22] VITALS: BP 138/83; PULSE 117
--- NOTE | 2018-01-12 11:06 | US ---
Therapeutic paracentesis. DATE OF EXAM: 01/12/2018 CLINICAL HISTORY: Ascites The procedure was discussed with the patient. The risks, complications, benefits, and alternatives we re discussed and any questions were answered. Informed consent was obtained. The patient was placed s upine on the ultrasound table and prepped and draped in the usual sterile fashion. All elements of maximal barrier technique were utilized. Under ultrasound guidance, access into the right lower quadrant was obtained, via the paracentesis catheter system and direct ultrasound guidanc e. Approximately 2.3 liters of straw-colored fluid was removed. The patient was stable throughout the pr ocedure and remained stable upon discharge from Department of Radiology. IMPRESSION: Successful therapeutic paracentesis under ultrasound guidance.
== END 2018-01-12 10:50 | disposition home or self-care (01) ==
LOC: RADPROMAIN 07:48
PROVIDERS: ATTEND Family Medicine
DX: R18.8 Other ascites (principal)
CPT/HCPCS: 82565; 85049; 85610; 36415; 49083; P9047

== ENCOUNTER 2018-01-12 22:35 | Inpatient (IN) | payer OTHER ==
[2018-01-12] MEDS ORDERED: SODIUM CHLORIDE 0.9% 500 ML 500 ML IV STA (22:50)
[2018-01-12 23:28] LABS: Anisocytosis Slight; Basophils # (A) 0.1 k/uL (0-0.2); Basophils % (A) 1 %; Eosinophils # (A) 0.8 k/uL (0-0.7); Eosinophils % (A) 11 %; HCT 46.1 % (39.0-53.0); HGB 14.4 gm/dL (13.0-17.5); Hypochromasia Moderate; Lymphocytes # (A) 0.5 k/uL (1.0-4.8); Lymphocytes % (A) 7 %; MCH 27.5 pg (25.0-35.0); MCHC 31.3 g/dL (31.0-37.0); MCV 87.6 fL (80.0-100.0); Mean Platelet Volume 7.3; Monocytes # (A) 0.5 k/uL (0-1.0); Monocytes % (A) 7 %; Neutrophils # (A) 5.4 k/uL (1.3-7.7); Neutrophils % (A) 73 %; Platelet Count 233 k/uL (150-450); RBC 5.26 m/uL (4.30-5.90); RDW 17.2 % (11.5-15.5); WBC 7.4 k/uL (3.8-10.6)
[2018-01-12 23:40] LABS: INR 1.3 (<1.2); Partial Thromboplastin Time 28.6 sec (22.0-30.0); Prothrombin Time 12.5 sec (9.0-12.0)
[2018-01-12 23:44] LABS: ALT 18 U/L (21-72); AST 27 U/L (17-59); Albumin 3.7 g/dL (3.5-5.0); Alkaline Phosphatase 478 U/L (38-126); Anion Gap 10 mmol/L; Blood Urea Nitrogen 15 mg/dL (9-20); Calcium 9.5 mg/dL (8.4-10.2); Carbon Dioxide 29 mmol/L (22-30); Chloride 98 mmol/L (98-107); Glucose 112 mg/dL (74-99); Magnesium 1.8 mg/dL (1.6-2.3); Potassium 4.3 mmol/L (3.5-5.1); Sodium 137 mmol/L (137-145); Total Bilirubin 1.3 mg/dL (0.2-1.3); Total Protein 7.9 g/dL (6.3-8.2)
--- NOTE | 2018-01-12 23:46 | XR ---
EXAMINATION TYPE: XR chest 2V DATE OF EXAM: 01/12/2018 COMPARISON: 11/24/2017 HISTORY: Chest pain TECHNIQUE: Frontal and lateral views of the chest are obtained. FINDINGS: Heart is enlarged. There is blunting of right costophrenic angle and large right pleural e ffusion. There is mild pulmonary congestion. There are chest leads. IMPRESSION: There is increased right pleural effusion compared to last exam. Mild congestive heart f ailure. Pulmonary congestion is improved slightly compared to last exam.
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
[2018-01-13 00:03] LABS: Creatine Kinase MB 5.1 ng/mL (0.0-2.4); Troponin I 0.023 ng/mL (0.000-0.034)
[2018-01-13] MEDS ORDERED: MORPHINE SULFATE 4 MG/ML SYRINGE IVP STA ×2 (00:15→06:37)
[2018-01-13] MEDS ORDERED: DILTIAZEM DRIP BOLUS FROM BAG 1 MG SOLN IV ONE (00:57)
[2018-01-13] MEDS ORDERED: DILTIAZEM 50 MG in SODIUM CHLORIDE 0.9% 40 ML IV SCH (01:00)
[2018-01-13] MEDS ORDERED: NALOXONE 0.4 MG/ML 1 ML VIAL IV PRN (01:23)
[2018-01-13] MEDS ORDERED: IPRATROPIUM-ALBUTEROL 3 ML NEB INHALATION PRN (01:26)
[2018-01-13] MEDS ORDERED: ALBUTEROL NEBULIZED 2.5 MG/3 ML INHALATION PRN (01:26)
[2018-01-13] MEDS: ENOXAPARIN 80 MG/0.8 ML SYRINGE SQ SCH ×2 (02:24→16:59)
[2018-01-13] MEDS: SYMBICORT 160-4.5 MCG INHALER INHALATION SCH ×2 (07:58→20:16)
[2018-01-13] MEDS: ALBUTEROL NEBULIZED 2.5 MG/3 ML INHALATION PRN ×2 (07:59→20:16)
[2018-01-13 08:01] LABS: Glucose,Whole Blood 90 mg/dL (75-99)
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
[2018-01-13] MEDS ORDERED: FUROSEMIDE 40 MG TAB PO SCH (09:00)
[2018-01-13] MEDS ORDERED: METOPROLOL TARTRATE 50 MG TAB PO SCH (09:00)
[2018-01-13] MEDS: INSULIN ASPART 100 UNIT/ML 1 ML 10 ML VIAL SQ SCH ×4 (09:33→20:39)
[2018-01-13] MEDS: FUROSEMIDE 10 MG/ML 4 ML VIAL IV SCH ×2 (09:41→20:22)
[2018-01-13] MEDS: SPIRONOLACTONE 25 MG TAB PO SCH ×2 (09:41→20:23)
[2018-01-13] MEDS: LISINOPRIL 5 MG TAB PO SCH (09:41)
[2018-01-13] MEDS: ISOSORBIDE MONONITRATE ER 30 MG TAB.ER.24H PO SCH (09:41)
[2018-01-13] MEDS: ASPIRIN 81 MG PO SCH (09:41)
[2018-01-13] MEDS: METOPROLOL TARTRATE 50 MG TAB PO SCH ×3 (09:41→20:23)
[2018-01-13] MEDS: HYDROcodone/APAP 10-325MG 1 EACH TAB PO PRN ×3 (09:43→20:23)
[2018-01-13] MEDS: NICOTINE 14MG/24HR PATCH TRANSDERM SCH (09:48)
--- NOTE | 2018-01-13 09:56 | ECHOF ---
Referral Reason:chf MEASUREMENTS -------- HEIGHT: 170.2 cm WEIGHT: 68.0 kg BP: IVSd: 1.4 cm (0.6 - 1.1) LVIDd: 5.0 cm (3.9 - 5.3) LVPWd: 1.4 cm (0.6 - 1.1) IVSs: 1.6 cm LVIDs: 4.8 cm LVPWs: 1.5 cm LAESV Index (A-L): 29.11 ml/m Ao Diam: 3.5 cm (2.0 - 3.7) AV Cusp: 2.4 cm (1.5 - 2.6) LA Diam: 3.7 cm (2.7 - 3.8) MV EXCURSION: 11.106 mm (> 18.000) MV EF SLOPE: 46 mm/s (70 - 150) EPSS: 1.9 cm RAP: 20.00 mmHg RVSP: 60.91 mmHg FINDINGS -------- Atrial fibrillation. This was a technically good study. The left ventricular size is normal. There is moderate concentric left ventricular hypertrophy. O verall left ventricular systolic function is severely impaired with, an EF between 20 - 25 %. Basal anterior LV wall motion is hypokinetic. Basal lateral LV wall motion is hypokinetic. Basal inf erior LV wall motion is hypokinetic. Basal inferoseptal LV wall motion is hypokinetic. Mid ante rior LV wall motion is hypokinetic. Mid lateral LV wall motion is hypokinetic. Mid inferior LV wall motion is hypokinetic. Mid inferoseptal LV wall motion is hypokinetic. Inferiorlateral Hyp okinesis The right ventricle is normal in size and function. LA is midly dilated 29-33ml/m2. The right atrium is normal in size. Aortic valve is trileaflet and is mildly thickened. The mitral valve leaflets are mildly thickened. Moderate mitral regurgitation is present. Severe tricuspid regurgitation present. There is moderate pulmonary hypertension. The right ventr icular systolic pressure, as measured by Doppler, is 60.91mmHg. Pulmonic valve appears structurally normal. The aortic root size is normal. The inferior vena cava is dilated with no significant inspiratory collapse which is consistent estima iliana right atrial pressure of >20 mmHg. The pericardium is normal. CONCLUSIONS -------- 1. Atrial fibrillation. 2. This was a technically good study. 3. The left ventricular size is normal. 4. There is moderate concentric left ventricular hypertrophy. 5. Overall left ventricular systolic function is severely impaired with, an EF between 20 - 25 %. 6. Basal anterior LV wall motion is hypokinetic. 7. Basal lateral LV wall motion is hypokinetic. 8. Basal inferior LV wall motion is hypokinetic. 9. Basal inferoseptal LV wall motion is hypokinetic. 10. Mid anterior LV wall motion is hypokinetic. 11. Mid lateral LV wall motion is hypokinetic. 12. Mid inferior LV wall motion is hypokinetic. 13. Mid inferoseptal LV wall motion is hypokinetic. 14. Inferiorlateral Hypokinesis 15. The right ventricle is normal in size and function. 16. LA is midly dilated 29-33ml/m2. 17. The right atrium is normal in size. 18. Aortic valve is trileaflet and is mildly thickened. 19. The mitral valve leaflets are mildly thickened. 20. Moderate mitral regurgitation is present. 21. Severe tricuspid regurgitation present. 22. There is moderate pulmonary hypertension. 23. The right ventricular systolic pressure, as measured by Doppler, is 60.91mmHg. 24. Pulmonic valve appears structurally normal. 25. The aortic root size is normal. 26. The inferior vena cava is dilated with no significant inspiratory collapse which is consistent es timated right atrial pressure of >20 mmHg. 27. The pericardium is normal. AQUATIC SCIENTIST: Olya Mejia RDCS
[2018-01-13 11:29] LABS: Glucose,Whole Blood 110 mg/dL (75-99)
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
[2018-01-13] MEDS: HYDROmorphone 1 MG/ML 1 ML SYRINGE IVP PRN ×3 (13:03→22:19)
--- NOTE | 2018-01-13 13:44 | US ---
EXAMINATION TYPE: US abdomen limited DATE OF EXAM: 01/13/2018 COMPARISON: NONE CLINICAL HISTORY: Assess fluid. Ascites, exam done portable. Small amount of ascites seen within all 4 quadrants with largest pocket on right side. IMPRESSION: There is only a small amount of ascites.
--- NOTE | 2018-01-13 13:46 | US ---
EXAMINATION TYPE: US chest DATE OF EXAM: 01/13/2018 COMPARISON: NONE CLINICAL HISTORY: Markings for thoracentesis by pulmonary staff. Pleural effusion, exam done portable . TECHNIQUE: Targeted ultrasound of the posterior lower bilateral hemithoraces EXAM MEASUREMENTS: Right Pleural Effusion pocket size: 12.0 cm Right skin surface to fluid distance: 1.9 cm Left Pleural Effusion pocket size: 7.6 cm Left skin surface to fluid distance: 1.9 cm Right side MARKED for possible thoracentesis outside the dept. Left side NOT MARKED for possible thoracentesis outside the dept due to lung seen superficially withi n fluid pocket. Pulmonologists are able to review the images in the patient?s EMR. IMPRESSIONS: Bilateral pleural effusions greater on the right
[2018-01-13 16:37] LABS: Glucose,Whole Blood 109 mg/dL (75-99)
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
[2018-01-13] MEDS: FAMOTIDINE 20 MG TAB PO SCH (20:22)
[2018-01-13 20:37] LABS: Glucose,Whole Blood 103 mg/dL (75-99)
[2018-01-14] MEDS: HYDROcodone/APAP 10-325MG 1 EACH TAB PO PRN ×2 (00:12→09:04)
[2018-01-14] MEDS: HYDROmorphone 1 MG/ML 1 ML SYRINGE IVP PRN ×4 (03:06→20:39)
[2018-01-14] MEDS: ENOXAPARIN 80 MG/0.8 ML SYRINGE SQ SCH ×2 (03:07→16:31)
[2018-01-14 05:50] LABS: Glucose,Whole Blood 71 mg/dL (75-99)
[2018-01-14] MEDS: INSULIN ASPART 100 UNIT/ML 1 ML 10 ML VIAL SQ SCH ×4 (06:00→22:09)
[2018-01-14 06:39] LABS: Calcium 9.2 mg/dL (8.4-10.2); Potassium 5.6 mmol/L (3.5-5.1)
[2018-01-14] MEDS: SUCRALFATE 1 GM TAB PO SCH ×2 (07:10→17:29)
[2018-01-14 07:30] LABS: Anisocytosis Slight; HGB 13.7 gm/dL (13.0-17.5); Hypochromasia Marked; MCH 26.7 pg (25.0-35.0); MCHC 29.8 g/dL (31.0-37.0); MCV 89.6 fL (80.0-100.0); Mean Platelet Volume 8.1; Platelet Count 247 k/uL (150-450); RBC 5.13 m/uL (4.30-5.90); WBC 6.5 k/uL (3.8-10.6)
[2018-01-14] MEDS: SYMBICORT 160-4.5 MCG INHALER INHALATION SCH ×2 (07:32→19:30)
[2018-01-14] MEDS: ALBUTEROL NEBULIZED 2.5 MG/3 ML INHALATION PRN (07:32)
[2018-01-14] MEDS: NICOTINE 14MG/24HR PATCH TRANSDERM SCH (08:57)
[2018-01-14] MEDS: METOPROLOL TARTRATE 50 MG TAB PO SCH ×3 (09:03→22:07)
[2018-01-14] MEDS: ISOSORBIDE MONONITRATE ER 30 MG TAB.ER.24H PO SCH (09:03)
[2018-01-14] MEDS: SPIRONOLACTONE 25 MG TAB PO SCH ×2 (09:03→10:32)
[2018-01-14] MEDS: ASPIRIN 81 MG PO SCH (09:03)
[2018-01-14] MEDS: LISINOPRIL 5 MG TAB PO SCH (09:04)
[2018-01-14] MEDS: FUROSEMIDE 10 MG/ML 4 ML VIAL IV SCH ×2 (09:04→22:08)
[2018-01-14] MEDS: FAMOTIDINE 20 MG TAB PO SCH ×2 (09:04→22:07)
[2018-01-14] MEDS ORDERED: SODIUM POLYSTYRENE SULFONATE 15 GM/60 ML BOTTLE PO STA (10:25)
[2018-01-14] MEDS ORDERED: ONDANSETRON 4 MG/2 ML VIAL IVP PRN (10:26)
[2018-01-14 11:16] LABS: Glucose,Whole Blood 80 mg/dL (75-99)
--- NOTE | 2018-01-14 11:19 | P.PN ---
Subjective Progress Note Date: 01/14/18 Principal diagnosis: Dyspnea secondary to bilateral pleural effusions right greater than left and recurrent ascites. This is a 62-year-old white male with history of extensive medical problems, patient is known to have history of atrial fibrillation, coronary artery disease , ischemic cardiomyopathy with ejection fraction of 25%, history of throat cancer diagnosed in February of 2017, status post radiation. History of coronary artery disease, previous [place], liver disease, pulmonary embolism, recurrent ascites related to his liver disease, patient requires paracentesis on a regular basis almost. Patient is also known to have history of incisional hernia, cervical neck fracture, chronic difficulty in swallowing and voice hoarseness. Patient was admitted this time with mostly symptoms of recurrent abdominal distention, nausea vomiting for the last few days, patient had multiple paracentesis procedures and a regular basis for reaccumulation of ascites. The day of admission, the patient had paracentesis were in 2 L of fluids were removed. And normally remove 6-8 L. After the thoracentesis, patient developed some abdominal pain, and some vague chest discomfort. And felt his heart was racing. In the ER, patient was noted to have a good sized right-sided pleural effusion, and he was also noted to be tachycardic with atrial fibrillation and RVR, required Cardizem drip. Patient is known to have history of atrial fibrillation with RVR, and recurrent episodes of congestive heart failure. At any rate considering his right-sided pleural effusion, I was asked to see him on consultation. Ultrasound of the chest showed good sized pocket of fluid in the right pleural space, and I have touch bases with the patient that we would likely consider thoracentesis in the next 24 hours. The patient is seen again today 01/14/2018 in follow-up on the selective care unit. He is currently awake and alert. He is still quite dyspneic on minimal conversation and exertion. Ultrasound of the chest reveals a 12.0 cm effusion on the right and a 7.6 cm effusion on the left but the left did reveal evidence of lung within the fluid pocket. He is maintaining O2 saturations in the low 90s on 2 L/m per nasal cannula. He has been afebrile. His heart rate is better controlled in the 70s now. White count 6.5. Hemoglobin 13.7. Potassium 5.6. Creatinine 1.08. He is being diuresed with Lasix 40 mg IVP every 12 hours. He is on DuoNeb inhalations and Symbicort. Objective - Vital Signs Vital signs: Vital Signs Temp 97.6 F 01/13/18 20:00 Pulse 88 01/14/18 07:44 Resp 20 01/14/18 08:00 BP 116/70 01/14/18 08:00 Pulse Ox 95 01/14/18 08:00 Intake & Output 01/13/18 01/14/18 01/14/18 18:59 06:59 18:59 Intake Total 1333.917 240 420 Balance 1333.917 240 420 Weight 72.665 kg 71 kg Intake: IV 50 Invasive Line 1 50 Intake, IV Titration 43.917 Amount Diltiazem 50 mg In Sodium 43.917 Chloride 0.9% 40 ml @ Per Protocol IV .Q0M [facility] Rx#:[id number] Oral 1240 240 420 Other: Voiding Method Toilet Toilet Urinal Urinal # Voids 1 1 - Exam PHYSICAL EXAMINATION: Revealed a 62-year-old male, chronically ill, looks older than his stated age, in mild distress. Head: Atraumatic, normocephalic. HEENT: Pupils equal, round. Sclera anicteric. Conjunctiva are clear. Neck is supple, no JVD, no thyromegaly, no cervical lymphadenopathy. HEART EXAMINATION: Irregular irregular rhythm, normal S1 and S2, 2/6 systolic murmur thought the precordium. CHEST EXAMINATION: Diminished breath sounds and dullness at the right base, some wheezing on forced expiratory maneuver noted. ABDOMEN: Mildly distended, soft nontender no megaly no rebound.. EXTREMITIES: Trace of edema, good pulses bilaterally. NEUROLOGIC: Alert oriented 3, no gross focal deficits. Psychiatric: Normal mood, affect and mental status examination. - Labs CBC & Chem 7: 01/14/18 05:51 01/14/18 05:51 Labs: Abnormal Lab Results - Last 24 Hours (Table) 01/13/18 01/13/18 01/13/18 Range/Units 11:27 16:35 20:36 MCHC (31.0-37.0) g/dL RDW (11.5-15.5) % Sodium (137-145) mmol/L Potassium (3.5-5.1) mmol/L BUN (9-20) mg/dL POC Glucose (mg/dL) 110 H 109 H 103 H (75-99) mg/dL 01/14/18 01/14/18 01/14/18 Range/Units 05:48 05:51 05:51 MCHC 29.8 L (31.0-37.0) g/dL RDW 17.0 H (11.5-15.5) % Sodium 134 L (137-145) mmol/L Potassium 5.6 H (3.5-5.1) mmol/L BUN 24 H (9-20) mg/dL POC Glucose (mg/dL) 71 L (75-99) mg/dL Assessment and Plan Assessment: Impression: 1 right sided pleural effusion, most likely secondary to his recurrent ascites. Will likely need a diagnostic and therapeutic thoracentesis. 2 chronic and recurrent ascites, requiring multiple paracentesis procedures in the past. 3 atrial fibrillation with RVR presently rate seems to be better controlled. Being addressed by cardiology. 4 severe ischemic cardiomyopathy, ejection fraction of 20%, history of moderate mitral regurgitation and moderate severe tricuspid regurgitation. 5 underlying COPD 6 history of laryngeal cancer status post radiation treatment. 7 multiple comorbidities including hypertension, diabetes, hyperlipidemia, underlying coronary artery disease and previous stent placement, chronic systolic congestive heart failure. Plan: The patient was seen and evaluated by Dr. Garcia. We'll go ahead and plan to do a thoracentesis of the right side today. We'll continue with his current treatment plan. The patient is again educated regarding the importance of complete smoking cessation and a NicoDerm patch has been applied. We'll increase his activity as tolerated. We'll continue to follow. I, the cosigning physician, performed a history & physical examination of the patient. Lungs sounds with crackles in the bilateral posterior bases right greater than left. Diminished. Maintaining good O2 saturations in the 90s on 2 L/m per nasal cannula. I discussed the assessment and plan of care with my nurse practitioner, Lorri Hoffmann. I attest to the above note as dictated by her.
[2018-01-14] MEDS: IPRATROPIUM-ALBUTEROL 3 ML NEB INHALATION SCH ×3 (11:46→19:28)
[2018-01-14] MEDS ORDERED: IPRATROPIUM-ALBUTEROL 3 ML NEB INHALATION SCH (12:00)
--- NOTE | 2018-01-14 12:49 | P.PN ---
Subjective Progress Note Date: 01/14/18 Principal diagnosis: CHF, pleural effusion This is a 62-year-old gentleman well known to our practice, he has history of ischemic cardiomyopathy with prior myocardial infarctions and stent placements, recurrent ascites with recurrent paracentesis, diabetes, hypertension, hyperlipidemia, prior pulmonary embolism, chronic persistent atrial fibrillation, nicotine dependence, COPD, who states that he's been having significant abdominal pain, he has been delaying coming to the hospital because he knew he was scheduled yesterday for paracentesis. He underwent a paracentesis yesterday, and in spite of that continued to have abdominal discomfort. He has been having some diarrhea stools and frequent episodes of nausea and vomiting. Patient states he was also having some discomfort in his upper left shoulder blade for which cardiology was consulted. The patient has also lost a considerable amount of weight, at least 80 pounds. Chest x-ray showed increased right pleural effusion as compared with last exam, mild congestive cardiac failure and pulmonary congestion. EKG shows atrial fibrillation with moderately rapid ventricular response, occasional PVC and nonspecific ST-T wave changes. NT proBNP of 12,600. Patient was started on lisinopril yesterday. Laboratory values this morning showed a potassium of 5.6, up from 4.3, BUN of 24 and a creatinine of 1.08. Plan examination, patient complains mostly of shortness of breath. There is planning to do a right-sided thoracentesis today. Echocardiogram done yesterday shows severely impaired LV systolic function with an ejection fraction between 20-25%, moderate mitral regurgitation, moderate pulmonary hypertension and severe tricuspid regurgitation. Objective - Vital Signs Vital signs: Vital Signs Temp 98.2 F 01/14/18 11:12 Pulse 80 01/14/18 11:52 Resp 16 01/14/18 11:12 BP 150/77 01/14/18 11:12 Pulse Ox 96 01/14/18 11:12 Intake & Output 01/13/18 01/14/18 01/14/18 18:59 06:59 18:59 Intake Total 1333.917 240 420 Balance 1333.917 240 420 Weight 72.665 kg 71 kg Intake: IV 50 Invasive Line 1 50 Intake, IV Titration 43.917 Amount Diltiazem 50 mg In Sodium 43.917 Chloride 0.9% 40 ml @ Per Protocol IV .Q0M [facility] Rx#:[id number] Oral 1240 240 420 Other: Voiding Method Toilet Toilet Urinal Urinal # Voids 1 1 - Exam PHYSICAL EXAMINATION: HEENT: Head is atraumatic, normocephalic. Pupils equal, round. Neck is supple. There is no elevated jugular venous pressure. HEART EXAMINATION: Heart sounds irregularly irregular, S1 and S2 systolic murmur. CHEST EXAMINATION: Lungs reveal diminished air entry at the right lower lobe. No chest wall tenderness is noted on palpation or with deep breathing. ABDOMEN: Soft, nontender. Bowel sounds are heard. No organomegaly noted. EXTREMITIES: 2+ peripheral pulses with evidence of mild peripheral edema and no calf tenderness noted. NEUROLOGIC patient is awake, alert and oriented x3. . - Labs CBC & Chem 7: 01/14/18 05:51 01/14/18 05:51 Labs: Abnormal Lab Results - Last 24 Hours (Table) 01/13/18 01/13/18 01/14/18 Range/Units 16:35 20:36 05:48 MCHC (31.0-37.0) g/dL RDW (11.5-15.5) % Sodium (137-145) mmol/L Potassium (3.5-5.1) mmol/L BUN (9-20) mg/dL POC Glucose (mg/dL) 109 H 103 H 71 L (75-99) mg/dL 01/14/18 01/14/18 Range/Units 05:51 05:51 MCHC 29.8 L (31.0-37.0) g/dL RDW 17.0 H (11.5-15.5) % Sodium 134 L (137-145) mmol/L Potassium 5.6 H (3.5-5.1) mmol/L BUN 24 H (9-20) mg/dL POC Glucose (mg/dL) (75-99) mg/dL Assessment and Plan Assessment: #1 symptoms of persistent nausea and vomiting with associated abdominal discomfort. Patient underwent a paracentesis 01/12/18. #2 systolic congestive heart failure acute on chronic, associated pleural effusion #3 atrial fibrillation, chronic persistent #4 known history of coronary artery disease with prior myocardial infarctions and stent placements #5 diabetes #6 hyperlipidemia #7 hypertension #8 history of CVA with prior TIA #9 nicotine dependence #10 COPD #11 ischemic cardiomyopathy with prior documented ejection fraction of less than 20% by echo performed in September, moderate MR, moderate to severe TR Plan: From Cardiology's perspective, stop lisinopril. Continue to follow renal function and electrolytes. We will continue to follow the patient for further recommendations accordingly. RECRUITMENT CONSULTANT note has been reviewed, I agree with a documented findings and plan of care. Patient was seen and examined.
--- NOTE | 2018-01-14 13:19 | XR ---
EXAMINATION TYPE: XR chest 1V portable DATE OF EXAM: 01/14/2018 COMPARISON: 01/12/2018 HISTORY: Status post right thoracentesis TECHNIQUE: Single frontal view of the chest is obtained. FINDINGS: There is near complete resolution of right-sided pleural effusion and consolidation. No si zable pneumothorax. Tiny left pleural effusion seen. No overt failure. Osseous structures and heart s ize stable. Atherosclerotic change aorta. IMPRESSION: 1. No pneumothorax postthoracentesis. 2. Tiny left pleural effusion.
--- NOTE | 2018-01-14 14:29 | P.PN ---
Subjective Progress Note Date: 01/14/18 The patient underwent a thoracentesis this morning due to pleural effusion and shortness of breath. He is able to eat about half of his breakfast. He hasn't had vomiting since admission. Objective - Vital Signs Vital signs: Vital Signs Temp 98.2 F 01/14/18 11:12 Pulse 80 01/14/18 11:52 Resp 16 01/14/18 11:12 BP 150/77 01/14/18 11:12 Pulse Ox 96 01/14/18 11:12 Intake & Output 01/13/18 01/14/18 01/14/18 18:59 06:59 18:59 Intake Total 1333.917 240 420 Balance 1333.917 240 420 Weight 72.665 kg 71 kg Intake: IV 50 Invasive Line 1 50 Intake, IV Titration 43.917 Amount Diltiazem 50 mg In Sodium 43.917 Chloride 0.9% 40 ml @ Per Protocol IV .Q0M [facility] Rx#:[id number] Oral 1240 240 420 Other: Voiding Method Toilet Toilet Urinal Urinal # Voids 1 1 - Constitutional General appearance: Present: cooperative, no acute distress - Respiratory Respiratory: bilateral: diminished - Gastrointestinal Gastrointestinal Comment(s): Mild tenderness without guarding or rebound General gastrointestinal: Present: distended, normal bowel sounds - Labs CBC & Chem 7: 01/14/18 05:51 01/14/18 05:51 Labs: Abnormal Lab Results - Last 24 Hours (Table) 01/13/18 01/13/18 01/14/18 Range/Units 16:35 20:36 05:48 MCHC (31.0-37.0) g/dL RDW (11.5-15.5) % Sodium (137-145) mmol/L Potassium (3.5-5.1) mmol/L BUN (9-20) mg/dL POC Glucose (mg/dL) 109 H 103 H 71 L (75-99) mg/dL 01/14/18 01/14/18 Range/Units 05:51 05:51 MCHC 29.8 L (31.0-37.0) g/dL RDW 17.0 H (11.5-15.5) % Sodium 134 L (137-145) mmol/L Potassium 5.6 H (3.5-5.1) mmol/L BUN 24 H (9-20) mg/dL POC Glucose (mg/dL) (75-99) mg/dL Assessment and Plan (1) Nausea and vomiting Current Visit: Yes Status: Acute Code(s): R11.2 - NAUSEA WITH VOMITING, UNSPECIFIED SNOMED Code(s): 70536041 (2) Ventral hernia without obstruction or gangrene Current Visit: Yes Status: Acute Code(s): K43.9 - VENTRAL HERNIA WITHOUT OBSTRUCTION OR GANGRENE SNOMED Code(s): 732168849 (3) Atrial fibrillation with RVR Current Visit: Yes Status: Acute Code(s): I48.91 - UNSPECIFIED ATRIAL FIBRILLATION SNOMED Code(s): 779539524504071 (4) Abdominal pain Current Visit: No Status: Acute Code(s): R10.9 - UNSPECIFIED ABDOMINAL PAIN SNOMED Code(s): 35058681 (5) Acute on chronic systolic (congestive) heart failure Current Visit: No Status: Acute Code(s): I50.23 - ACUTE ON CHRONIC SYSTOLIC (CONGESTIVE) HEART FAILURE SNOMED Code(s): 817369384 Plan: Continue medical care. Pepcid and Carafate were added yesterday. Antiemetic as needed. No plans for EGD at this time.
[2018-01-14 15:25] LABS: Appearance,BF Cloudy; Color,BF Yellow
[2018-01-14 16:09] LABS: Nucleated Cells, Body Fluid 300 /uL; RBC, Body Fluid 700 /uL
[2018-01-14 16:15] LABS: Mononuclear WBC,Body Fluid 19 %; Polynuclear WBC,Body Fluid 80 %; Total Cells Counted,Body Fluid 100
--- NOTE | 2018-01-14 16:38 | P.PN ---
Subjective Progress Note Date: 01/14/18 Principal diagnosis: Chest pain, A. fib with RVR Mr. Monet is a 62-year-old male with a past medical history of Atrial Fibrillation, Coronary Artery Disease (CAD), Cancer, Heart Failure, CVA/TIA, Diabetes Mellitus, Deep Vein Thrombosis (DVT), GERD/Reflux, Liver Disease, Myocardial Infarction ([place]), Prostate Disorder, Pulmonary Embolus (PE) coming into the hospital with a chief complaint of chest pain and difficulty in breathing. Patient has history of chronic ascites and frequent paracentesis done. Patient has a chest x-ray showing increased pleural effusion on the right side and also found to be in A. fib with RVR so admitted for further management. Patient had thoracentesis systems this morning with 1.9 L of fluid removed. He is lying in bed appears to be no acute distress. Patient states that his breathing has improved a little bit after the thoracentesis but not a lot of relief. Review of systems - Constitutional -Patient denies having any fevers chills or rigors. Cardiovascular- no active chest pain. Occasional palpitations Respiratory-difficulty in breathing improved to some extent. No cough. GI-patient has chronic abdominal distention and states that his abdomen is less distended after paracentesis. Denies having any nausea vomiting or diarrhea. -no dysuria or hematuria. Neurological-no focal weakness. Active Medications Hydrocodone Bitart/Acetaminophen ([place] 10) 1 each PO Q4H PRN PRN Reason: Pain Last Admin: 01/14/18 09:04 Dose: 1 each Albuterol/Ipratropium (Duoneb 0.5 Mg-3 Mg/3 Ml Soln) 3 ml INHALATION RT-QID [facility] Last Admin: 01/14/18 15:59 Dose: 3 ml Aspirin (Aspirin) 81 mg PO DAILY [facility] Last Admin: 01/14/18 09:03 Dose: 81 mg Budesonide/Formoterol Fumarate (Symbicort 160-4.5 Mcg Inhaler) 2 puff INHALATION RT-BID [facility] Last Admin: 01/14/18 07:32 Dose: 2 puff Enoxaparin Sodium (Lovenox) 80 mg SQ Q12H [facility] Last Admin: 01/14/18 03:07 Dose: 80 mg Famotidine (Pepcid) 20 mg PO BID [facility] Last Admin: 01/14/18 09:04 Dose: 20 mg Furosemide (Lasix) 40 mg IV Q12HR [facility] Last Admin: 01/14/18 09:04 Dose: 40 mg Hydromorphone HCl (Dilaudid) 0.5 mg IVP Q4HR PRN PRN Reason: Pain Last Admin: 01/14/18 16:25 Dose: 0.5 mg Insulin Aspart (Novolog) 0 unit SQ ACHS [facility]; Protocol Last Admin: 01/14/18 11:36 Dose: Not Given Isosorbide Mononitrate (Imdur) 30 mg PO DAILY [facility] Last Admin: 01/14/18 09:03 Dose: 30 mg Metoprolol Tartrate (Lopressor) 50 mg PO TID [facility] Last Admin: 01/14/18 09:03 Dose: 50 mg Naloxone HCl (Narcan) 0.2 mg IV Q2M PRN PRN Reason: Opioid Reversal Nicotine (Habitrol 14mg/24hr Patch) 1 patch TRANSDERM DAILY [facility] Last Admin: 01/14/18 08:57 Dose: Not Given Ondansetron HCl (Zofran) 4 mg IVP Q6HR PRN PRN Reason: Nausea And Vomiting Spironolactone (Aldactone) 25 mg PO BID [facility] Last Admin: 01/14/18 10:32 Dose: Not Given Sucralfate (Carafate) 1 gm PO AC-BID [facility] Last Admin: 01/14/18 07:10 Dose: 1 gm Objective - Vital Signs Vital signs: Vital Signs Temp 98.2 F 01/14/18 11:12 Pulse 78 01/14/18 12:00 Resp 16 01/14/18 12:00 BP 150/77 01/14/18 11:12 Pulse Ox 96 01/14/18 11:12 Intake & Output 01/13/18 01/14/18 01/14/18 18:59 06:59 18:59 Intake Total 1333.917 240 620 Output Total 2500 Balance 1333.917 240 -1880 Weight 72.665 kg 71 kg Intake: IV 50 Invasive Line 1 50 Intake, IV Titration 43.917 Amount Diltiazem 50 mg In Sodium 43.917 Chloride 0.9% 40 ml @ Per Protocol IV .Q0M [facility] Rx#:[id number] Oral 1240 240 620 Output: Urine 600 Other 1900 Other: Voiding Method Toilet Toilet Toilet Urinal Urinal Urinal # Voids 1 1 - Exam GENERAL EXAM GEN. APPEARANCE: alert, in no apparent distress HEAD EXAM: atraumatic, normocephalic, normal inspection EYE EXAM: Mild pallor. No icterus NECK EXAM: normal inspection. Absent: tenderness, meningismus, full ROM, lymphadenopathy RESPIRATORY EXAM: Diminished breath sounds on the right lower lobe. Coarse breath sounds in all lung figueroa. CARDIOVASCULAR EXAM: Irregularly irregular. S1-S2 heard. GI/ABDOMINAL EXAM: Mildly distended. Soft nontender. Bowel sounds positive EXTREMITIES EXAM: Mild pitting edema in bilateral lower extremities NEUROLOGICAL EXAM: alert, oriented X3, no focal neurological deficits - Labs CBC & Chem 7: 01/14/18 05:51 01/14/18 05:51 Labs: Abnormal Lab Results - Last 24 Hours (Table) 01/13/18 01/13/18 01/14/18 Range/Units 16:35 20:36 05:48 MCHC (31.0-37.0) g/dL RDW (11.5-15.5) % Sodium (137-145) mmol/L Potassium (3.5-5.1) mmol/L BUN (9-20) mg/dL POC Glucose (mg/dL) 109 H 103 H 71 L (75-99) mg/dL 01/14/18 01/14/18 Range/Units 05:51 05:51 MCHC 29.8 L (31.0-37.0) g/dL RDW 17.0 H (11.5-15.5) % Sodium 134 L (137-145) mmol/L Potassium 5.6 H (3.5-5.1) mmol/L BUN 24 H (9-20) mg/dL POC Glucose (mg/dL) (75-99) mg/dL Assessment and Plan Assessment: ASSESSMENT Atrial fibrillation with RVR Dehydration Acute on chronic exacerbation of CHF ejection fraction 25% systolic dysfunction Chronic ascites with frequent paracentesis Right pleural effusion History of Throat cancer History of CVA/TIA Coronary disease with [place] and stents Liver disease Diabetes type 2 History of DVT and pulmonary embolism History of GERD Plan: Patient had thoracocentesis done this morning with 1.9 L of fluid removed. Continue with breathing treatments. Audiology on board and following the patient and his RVR is under better control currently. Overall prognosis is guarded. Further recommendations to follow depending on the progress of the patient.
[2018-01-14 16:52] LABS: Glucose,Whole Blood 92 mg/dL (75-99)
--- NOTE | 2018-01-14 17:46 | PCN ---
PROCEDURE NOTE OPERATIVE REPORT: Right-sided thoracentesis. PREOPERATIVE DIAGNOSIS: Right pleural effusion. POSTOP DIAGNOSIS: Right pleural effusion. ANESTHESIA USED: 2 mL of 1% lidocaine. PROCEDURE: The patient was placed in a sitting upright position, the area below the right scapula was prepared in a sterile fashion. The drapes were applied. The fluid was earlier localized by ultrasound. The area at the level of the 9th intercostal space and tip of the scapula was anesthetized using lidocaine. Then, a 26-gauge needle was inserted at the same site, advanced into the pleural space. Fluid was localized with a 26-gauge needle. Then small incision was made at the site, and a thoracentesis catheter and needle were inserted at the same site and advanced into the pleural space. Some of the fluid was obtained, the catheter was advanced out of the needle and the needle was pulled out of the pleural space. The free-flowing fluid was removed, roughly 2000 mL of leslye colored fluid was removed from the right pleural space. No bleeding, and the effusion was not bloody. The fluid was sent for different diagnostic studies. Chest x- ray postoperatively showed complete resolution of the pleural effusion and no evidence of complications, no pneumothorax. MMODL / IJN: [id number] /
[2018-01-14 20:56] LABS: Glucose,Whole Blood 143 mg/dL (75-99)
[2018-01-15] MEDS ORDERED: LORazepam 2 MG/ML INJ IV STA (01:11)
[2018-01-15] MEDS ORDERED: HALOPERIDOL LACTATE 5 MG/ML 1 ML VIAL IVP PRN (01:12)
[2018-01-15] MEDS ORDERED: traMADol 50 MG TAB PO PRN (01:14)
[2018-01-15] MEDS: QUEtiapine 25 MG TAB PO SCH ×3 (01:21→22:37)
[2018-01-15] MEDS: ENOXAPARIN 80 MG/0.8 ML SYRINGE SQ SCH ×2 (03:30→16:57)
[2018-01-15 04:03] LABS: Total Protein, Body Fluid 3001 mg/dL
[2018-01-15 05:41] LABS: Glucose,Whole Blood 106 mg/dL (75-99)
[2018-01-15 06:42] LABS: Anisocytosis Slight; Basophils % (A) 0 %; Eosinophils # (A) 0.2 k/uL (0-0.7); Eosinophils % (A) 2 %; HCT 45.9 % (39.0-53.0); HGB 13.8 gm/dL (13.0-17.5); Hypochromasia Moderate; Lymphocytes # (A) 0.8 k/uL (1.0-4.8); Lymphocytes % (A) 8 %; MCH 26.7 pg (25.0-35.0); MCV 89.1 fL (80.0-100.0); Mean Platelet Volume 7.7; Monocytes # (A) 0.7 k/uL (0-1.0); Monocytes % (A) 7 %; Neutrophils # (A) 7.8 k/uL (1.3-7.7); Neutrophils % (A) 81 %; Platelet Count 281 k/uL (150-450); RBC 5.16 m/uL (4.30-5.90); RDW 17.2 % (11.5-15.5); WBC 9.6 k/uL (3.8-10.6)
[2018-01-15] MEDS: SUCRALFATE 1 GM TAB PO SCH ×2 (06:47→16:58)
[2018-01-15] MEDS: INSULIN ASPART 100 UNIT/ML 1 ML 10 ML VIAL SQ SCH ×4 (06:47→21:38)
[2018-01-15 07:00] LABS: Calcium 8.7 mg/dL (8.4-10.2); Potassium 4.9 mmol/L (3.5-5.1)
[2018-01-15] MEDS: IPRATROPIUM-ALBUTEROL 3 ML NEB INHALATION SCH ×4 (09:14→20:58)
[2018-01-15] MEDS: SYMBICORT 160-4.5 MCG INHALER INHALATION SCH ×2 (09:18→20:58)
[2018-01-15] MEDS: NICOTINE 14MG/24HR PATCH TRANSDERM SCH (10:05)
[2018-01-15 10:52] LABS: Glucose,Whole Blood 221 mg/dL (75-99)
[2018-01-15] MEDS: FAMOTIDINE 20 MG TAB PO SCH ×2 (11:05→22:37)
[2018-01-15] MEDS: SPIRONOLACTONE 25 MG TAB PO SCH ×2 (11:06→22:37)
[2018-01-15] MEDS: ISOSORBIDE MONONITRATE ER 30 MG TAB.ER.24H PO SCH (11:06)
[2018-01-15] MEDS: ASPIRIN 81 MG PO SCH (11:06)
[2018-01-15] MEDS: METOPROLOL TARTRATE 50 MG TAB PO SCH ×3 (11:06→22:39)
--- NOTE | 2018-01-15 11:15 | P.PN ---
Subjective Progress Note Date: 01/15/18 Principal diagnosis: Dyspnea secondary to bilateral pleural effusions right greater than left and recurrent ascites. This is a 62-year-old white male with history of extensive medical problems, patient is known to have history of atrial fibrillation, coronary artery disease , ischemic cardiomyopathy with ejection fraction of 25%, history of throat cancer diagnosed in February of 2017, status post radiation. History of coronary artery disease, previous [place], liver disease, pulmonary embolism, recurrent ascites related to his liver disease, patient requires paracentesis on a regular basis almost. Patient is also known to have history of incisional hernia, cervical neck fracture, chronic difficulty in swallowing and voice hoarseness. Patient was admitted this time with mostly symptoms of recurrent abdominal distention, nausea vomiting for the last few days, patient had multiple paracentesis procedures and a regular basis for reaccumulation of ascites. The day of admission, the patient had paracentesis were in 2 L of fluids were removed. And normally remove 6-8 L. After the thoracentesis, patient developed some abdominal pain, and some vague chest discomfort. And felt his heart was racing. In the ER, patient was noted to have a good sized right-sided pleural effusion, and he was also noted to be tachycardic with atrial fibrillation and RVR, required Cardizem drip. Patient is known to have history of atrial fibrillation with RVR, and recurrent episodes of congestive heart failure. At any rate considering his right-sided pleural effusion, I was asked to see him on consultation. Ultrasound of the chest showed good sized pocket of fluid in the right pleural space, and I have touch bases with the patient that we would likely consider thoracentesis in the next 24 hours. The patient is seen again today 01/14/2018 in follow-up on the selective care unit. He is currently awake and alert. He is still quite dyspneic on minimal conversation and exertion. Ultrasound of the chest reveals a 12.0 cm effusion on the right and a 7.6 cm effusion on the left but the left did reveal evidence of lung within the fluid pocket. He is maintaining O2 saturations in the low 90s on 2 L/m per nasal cannula. He has been afebrile. His heart rate is better controlled in the 70s now. White count 6.5. Hemoglobin 13.7. Potassium 5.6. Creatinine 1.08. He is being diuresed with Lasix 40 mg IVP every 12 hours. He is on DuoNeb inhalations and Symbicort. Patient is seen again today 01/15/2018 in follow-up on the selective care unit. He is breathing easier today as compared to yesterday. He is somewhat confused today more so compared to yesterday. Hand grasps equal and strong. Ambulating with assistance. White count 9.6. Hemoglobin 13.8. Bicarb 27. Creatinine 1.23. Blood glucose 106. He did undergo thoracentesis yesterday. Chest x-ray shows near complete resolution of the right pleural fluid. There is a tiny left pleural effusion. Total protein 3, LDH 95. Transudative. Cultures pending. Objective - Vital Signs Vital signs: Vital Signs Temp 98.0 F 01/15/18 11:04 Pulse 94 01/15/18 11:04 Resp 17 01/15/18 11:04 BP 107/71 01/15/18 11:04 Pulse Ox 94 L 01/15/18 11:04 Intake & Output 01/14/18 01/15/18 01/15/18 18:59 06:59 18:59 Intake Total 890 10 Output Total 2500 Balance -1610 10 Intake: IV 10 10 Invasive Line 1 10 10 Oral 880 Output: Urine 600 Other 1900 Other: Voiding Method Toilet Toilet Toilet Urinal Urinal Urinal - Exam PHYSICAL EXAMINATION: Revealed a 62-year-old male, chronically ill, looks older than his stated age, in mild distress. Head: Atraumatic, normocephalic. HEENT: Pupils equal, round. Sclera anicteric. Conjunctiva are clear. Neck is supple, no JVD, no thyromegaly, no cervical lymphadenopathy. HEART EXAMINATION: Irregular irregular rhythm, normal S1 and S2, 2/6 systolic murmur thought the precordium. CHEST EXAMINATION: Diminished breath sounds, some wheezing on forced expiratory maneuver noted. ABDOMEN: Mildly distended, soft nontender no megaly no rebound.. EXTREMITIES: Trace of edema, good pulses bilaterally. NEUROLOGIC: Alert oriented 3, no gross focal deficits. Psychiatric: Normal mood, affect and mental status examination. - Labs CBC & Chem 7: 01/15/18 05:39 01/15/18 05:39 Labs: Abnormal Lab Results - Last 24 Hours (Table) 01/14/18 01/15/18 01/15/18 Range/Units 20:54 05:39 05:39 MCHC 30.0 L (31.0-37.0) g/dL RDW 17.2 H (11.5-15.5) % Neutrophils # 7.8 H (1.3-7.7) k/uL Lymphocytes # 0.8 L (1.0-4.8) k/uL Sodium 133 L (137-145) mmol/L Chloride 96 L (98-107) mmol/L BUN 36 H (9-20) mg/dL Glucose 121 H (74-99) mg/dL POC Glucose (mg/dL) 143 H (75-99) mg/dL 01/15/18 01/15/18 Range/Units 05:40 10:50 MCHC (31.0-37.0) g/dL RDW (11.5-15.5) % Neutrophils # (1.3-7.7) k/uL Lymphocytes # (1.0-4.8) k/uL Sodium (137-145) mmol/L Chloride (98-107) mmol/L BUN (9-20) mg/dL Glucose (74-99) mg/dL POC Glucose (mg/dL) 106 H 221 H (75-99) mg/dL Microbiology - Last 24 Hours (Table) 01/14/18 13:00 Gram Stain - Preliminary Pleural Fluid Body Fluid Culture - Preliminary 01/14/18 13:00 Acid Fast Bacilli Smear - Final Pleural Fluid Acid Fast Bacilli Culture - Preliminary 01/14/18 13:00 Fungal Culture - Preliminary Pleural Fluid Assessment and Plan Assessment: Impression: 1 right sided pleural effusion, most likely secondary to his recurrent ascites. Thoracentesis performed yesterday. 2 chronic and recurrent ascites, requiring multiple paracentesis procedures in the past. 3 atrial fibrillation with RVR presently rate seems to be better controlled. Being addressed by cardiology. 4 severe ischemic cardiomyopathy, ejection fraction of 20%, history of moderate mitral regurgitation and moderate severe tricuspid regurgitation. 5 underlying COPD 6 history of laryngeal cancer status post radiation treatment. 7 multiple comorbidities including hypertension, diabetes, hyperlipidemia, underlying coronary artery disease and previous stent placement, chronic systolic congestive heart failure. Plan: The patient was seen and evaluated by Dr. Garcia. Thoracentesis performed yesterday. Post chest x-ray revealed no pneumothorax. Significant improvement in the effusion. Tiny left pleural effusion remains. We will check ammonia level based on his confusion this morning. Narcotics have been held. We'll continue with his current treatment plan. We'll continue to follow. I, the cosigning physician, performed a history & physical examination of the patient. Lungs sounds with faint end expiratory wheeze, diminished. Maintaining good O2 saturations in the 90s on 2 L/m per nasal cannula. I discussed the assessment and plan of care with my nurse practitioner, Lorri Hoffmann. I attest to the above note as dictated by her.
--- NOTE | 2018-01-15 11:41 | P.PN ---
Subjective Progress Note Date: 01/15/18 This is a 62-year-old gentleman well known to our practice, he has history of ischemic cardiomyopathy with prior myocardial infarctions and stent placements, recurrent ascites with recurrent paracentesis, diabetes, hypertension, hyperlipidemia, prior pulmonary embolism, chronic persistent atrial fibrillation, nicotine dependence, COPD, who states that he's been having significant abdominal pain, he has been delaying coming to the hospital because he knew he was scheduled yesterday for paracentesis. He underwent a paracentesis yesterday, and in spite of that continued to have abdominal discomfort. He has been having some diarrhea stools and frequent episodes of nausea and vomiting. Patient states he was also having some discomfort in his upper left shoulder blade for which cardiology was consulted. The patient has also lost a considerable amount of weight, at least 80 pounds. Chest x-ray showed increased right pleural effusion as compared with last exam, mild congestive cardiac failure and pulmonary congestion. EKG shows atrial fibrillation with moderately rapid ventricular response, occasional PVC and nonspecific ST-T wave changes. White blood cell count 7.4, hemoglobin 14.4, platelet count 233. Sodium 137, potassium 4.3, BUN 15, creatinine 0.5. BNP level 12,600., troponin 0.0-3. Blood pressure 127/78 with a heart rate in the 90s this morning, 97% on room air. He is currently on IV Cardizem at 5 mg per hour. 01/15/2018 Patient underwent a right-sided thoracentesis 2 days ago roughly 2000 mils of leslye-colored fluid was removed. Patient was seen and examined today, breathing is improved as compared with yesterday. Very sleepy this morning. White blood cell count 9.6, hemoglobin 13.8. Creatinine 1.2. Chest x-ray report reveals near complete resolution of the right pleural fluid. Tiny left pleural effusion noted. Hemodynamically stable with a blood pressure of 107/70 this morning. Objective - Vital Signs Vital signs: Vital Signs Temp 98.0 F 01/15/18 11:04 Pulse 94 01/15/18 11:04 Resp 17 01/15/18 11:04 BP 107/71 01/15/18 11:04 Pulse Ox 94 L 01/15/18 11:04 Intake & Output 01/14/18 01/15/18 01/15/18 18:59 06:59 18:59 Intake Total 890 20 Output Total 2500 Balance -1610 20 Intake: IV 10 20 Invasive Line 1 10 20 Oral 880 Output: Urine 600 Other 1900 Other: Voiding Method Toilet Toilet Toilet Urinal Urinal Urinal - Exam PHYSICAL EXAMINATION: GENERAL: 62-year-old gentleman appears frail, in no acute distress at the time of my examination. HEENT: Head is atraumatic, normocephalic. Pupils equal, round. Sclera anicteric. Conjunctiva are clear. Mucous membranes of the mouth are moist. Neck is supple. There is elevated jugular venous pressure. No carotid bruit is heard. HEART EXAMINATION: Heart S1 and S2 irregularly irregular systolic murmur is heard. CHEST EXAMINATION: Lungs are clear with diminished air entry to bilateral bases. ABDOMEN: Soft, mildly distended . Bowel sounds are heard. No organomegaly noted. EXTREMITIES: 2+ peripheral pulses with trace evidence of peripheral edema and no calf tenderness noted. NEUROLOGIC patient is awake, alert and oriented 3 - Labs CBC & Chem 7: 01/15/18 05:39 01/15/18 05:39 Labs: Abnormal Lab Results - Last 24 Hours (Table) 01/14/18 01/15/18 01/15/18 Range/Units 20:54 05:39 05:39 MCHC 30.0 L (31.0-37.0) g/dL RDW 17.2 H (11.5-15.5) % Neutrophils # 7.8 H (1.3-7.7) k/uL Lymphocytes # 0.8 L (1.0-4.8) k/uL Sodium 133 L (137-145) mmol/L Chloride 96 L (98-107) mmol/L BUN 36 H (9-20) mg/dL Glucose 121 H (74-99) mg/dL POC Glucose (mg/dL) 143 H (75-99) mg/dL 01/15/18 01/15/18 Range/Units 05:40 10:50 MCHC (31.0-37.0) g/dL RDW (11.5-15.5) % Neutrophils # (1.3-7.7) k/uL Lymphocytes # (1.0-4.8) k/uL Sodium (137-145) mmol/L Chloride (98-107) mmol/L BUN (9-20) mg/dL Glucose (74-99) mg/dL POC Glucose (mg/dL) 106 H 221 H (75-99) mg/dL Microbiology - Last 24 Hours (Table) 01/14/18 13:00 Gram Stain - Preliminary Pleural Fluid Body Fluid Culture - Preliminary 01/14/18 13:00 Acid Fast Bacilli Smear - Final Pleural Fluid Acid Fast Bacilli Culture - Preliminary 01/14/18 13:00 Fungal Culture - Preliminary Pleural Fluid Assessment and Plan Plan: Assessment and plan #1 symptoms of persistent nausea and vomiting with associated abdominal discomfort. Patient underwent a paracentesis yesterday. #2 systolic congestive heart failure acute on chronic, associated pleural effusion #3 atrial fibrillation, chronic persistent #4 known history of coronary artery disease with prior myocardial infarctions and stent placements #5 diabetes #6 hyperlipidemia #7 hypertension #8 history of CVA with prior TIA #9 nicotine dependence #10 COPD #11 ischemic cardiomyopathy with prior documented ejection fraction of less than 20% by echo performed in September, moderate MR, moderate to severe TR Plan From cardiology's perspective, we'll continue current dose of IV Lasix. Continue to monitor intake and output along with daily weights and daily lytes BUN and creatinine. DNP note has been reviewed, I agree with a documented findings and plan of care. Patient was seen and examined.
--- NOTE | 2018-01-15 12:06 | P.PN ---
Subjective Progress Note Date: 01/15/18 Patient seen and examined at bedside. No acute events. Currently appears lethargic. Objective - Vital Signs Vital signs: Vital Signs Temp 98.0 F 01/15/18 11:04 Pulse 79 01/15/18 11:38 Resp 17 01/15/18 11:38 BP 107/71 01/15/18 11:04 Pulse Ox 94 L 01/15/18 11:04 Intake & Output 01/14/18 01/15/18 01/15/18 18:59 06:59 18:59 Intake Total 890 20 Output Total 2500 Balance -1610 20 Intake: IV 10 20 Invasive Line 1 10 20 Oral 880 Output: Urine 600 Other 1900 Other: Voiding Method Toilet Toilet Toilet Urinal Urinal Urinal - Constitutional General appearance: Present: cooperative - Respiratory Details: No difficulty with respiration - Gastrointestinal Gastrointestinal Comment(s): Soft, nontender, nondistended, no rebound, no guarding - Psychiatric Psychiatric: Present: A&O x's 3 - Labs CBC & Chem 7: 01/15/18 05:39 01/15/18 05:39 Labs: Abnormal Lab Results - Last 24 Hours (Table) 01/14/18 01/15/18 01/15/18 Range/Units 20:54 05:39 05:39 MCHC 30.0 L (31.0-37.0) g/dL RDW 17.2 H (11.5-15.5) % Neutrophils # 7.8 H (1.3-7.7) k/uL Lymphocytes # 0.8 L (1.0-4.8) k/uL Sodium 133 L (137-145) mmol/L Chloride 96 L (98-107) mmol/L BUN 36 H (9-20) mg/dL Glucose 121 H (74-99) mg/dL POC Glucose (mg/dL) 143 H (75-99) mg/dL 01/15/18 01/15/18 Range/Units 05:40 10:50 MCHC (31.0-37.0) g/dL RDW (11.5-15.5) % Neutrophils # (1.3-7.7) k/uL Lymphocytes # (1.0-4.8) k/uL Sodium (137-145) mmol/L Chloride (98-107) mmol/L BUN (9-20) mg/dL Glucose (74-99) mg/dL POC Glucose (mg/dL) 106 H 221 H (75-99) mg/dL Microbiology - Last 24 Hours (Table) 01/14/18 13:00 Gram Stain - Preliminary Pleural Fluid Body Fluid Culture - Preliminary 01/14/18 13:00 Acid Fast Bacilli Smear - Final Pleural Fluid Acid Fast Bacilli Culture - Preliminary 01/14/18 13:00 Fungal Culture - Preliminary Pleural Fluid Assessment and Plan (1) Nausea and vomiting Narrative/Plan: Currently, the patient does not appear to have nausea or emesis episodes. Due to feeling sleepy, the patient has not attempted to try his diet yet today. He is planning on trying lunch. We will continue to try antiemetics and antireflux medications. No plan for invasive procedure at this point. Current Visit: Yes Status: Acute Code(s): R11.2 - NAUSEA WITH VOMITING, UNSPECIFIED SNOMED Code(s): 45131861
--- NOTE | 2018-01-15 14:02 | P.PN ---
Subjective Progress Note Date: 01/15/18 Principal diagnosis: Chest pain, A. fib with RVR, Right sided pleural effusion. Mr. Monet is a 62-year-old male with a past medical history of Atrial Fibrillation, Coronary Artery Disease (CAD), Cancer, Heart Failure, CVA/TIA, Diabetes Mellitus, Deep Vein Thrombosis (DVT), GERD/Reflux, Liver Disease, Myocardial Infarction (AR), Prostate Disorder, Pulmonary Embolus (PE) coming into the hospital with a chief complaint of chest pain and difficulty in breathing. Patient has history of chronic ascites and frequent paracentesis done. Patient has a chest x-ray showing increased pleural effusion on the right side and also found to be in A. fib with RVR so admitted for further management. Patient had thoracentesis done on 01/14/18 - with 1.9 L of fluid removed. Today - as per the nursing staff report the patient was very drowsy this morning and his blood pressure was running a little bit on the lower side. Patient has been getting [place] and Dilaudid. He is lying in bed appears to be no acute distress. Patient states that his breathing has improved a little bit after the thoracentesis but not a lot of relief. His girlfriend for the past 18 years has been at the bedside and states sometimes he overdoses on the pain medications and drops his blood pressure and becomes drowsy. Review of systems - Constitutional -Patient denies having any fevers chills or rigors. Cardiovascular- no active chest pain. Occasional palpitations Respiratory-difficulty in breathing improved to some extent. No cough. GI-patient has chronic abdominal distention due to ascites -no dysuria or hematuria. Neurological-no focal weakness. Active Medications Albuterol/Ipratropium (Duoneb 0.5 Mg-3 Mg/3 Ml Soln) 3 ml INHALATION RT-QID [facility] Last Admin: 01/15/18 13:13 Dose: Not Given Aspirin (Aspirin) 81 mg PO DAILY [facility] Last Admin: 01/15/18 11:06 Dose: 81 mg Budesonide/Formoterol Fumarate (Symbicort 160-4.5 Mcg Inhaler) 2 puff INHALATION RT-BID [facility] Last Admin: 01/15/18 09:18 Dose: Not Given Enoxaparin Sodium (Lovenox) 80 mg SQ Q12H [facility] Last Admin: 01/15/18 03:30 Dose: 80 mg Famotidine (Pepcid) 20 mg PO BID [facility] Last Admin: 01/15/18 11:05 Dose: 20 mg Furosemide (Lasix) 40 mg IV Q12HR [facility] Last Admin: 01/14/18 22:08 Dose: 40 mg Haloperidol Lactate (Haldol) 1 mg IVP Q4HR PRN PRN Reason: Agitation or Acute Psychosis Last Admin: 01/15/18 01:56 Dose: 1 mg Insulin Aspart (Novolog) 0 unit SQ [facility]; Protocol Last Admin: 01/15/18 12:53 Dose: 3 unit Isosorbide Mononitrate (Imdur) 30 mg PO DAILY [facility] Last Admin: 01/15/18 11:06 Dose: 30 mg Metoprolol Tartrate (Lopressor) 50 mg PO TID [facility] Last Admin: 01/15/18 11:06 Dose: 50 mg Naloxone HCl (Narcan) 0.2 mg IV Q2M PRN PRN Reason: Opioid Reversal Nicotine (Habitrol 14mg/24hr Patch) 1 patch TRANSDERM DAILY [facility] Last Admin: 01/15/18 10:05 Dose: Not Given Ondansetron HCl (Zofran) 4 mg IVP Q6HR PRN PRN Reason: Nausea And Vomiting Quetiapine Fumarate (Seroquel) 25 mg PO [facility] Last Admin: 01/15/18 01:24 Dose: Not Given Spironolactone (Aldactone) 25 mg PO BID [facility] Last Admin: 01/15/18 11:06 Dose: 25 mg Sucralfate (Carafate) 1 gm PO AC-BID [facility] Last Admin: 01/15/18 06:47 Dose: Not Given Tramadol HCl (Ultram) 50 mg PO Q6HR PRN PRN Reason: Pain Objective - Vital Signs Vital signs: Vital Signs Temp 98.0 F 01/15/18 11:04 Pulse 79 01/15/18 11:38 Resp 17 01/15/18 11:38 BP 107/71 01/15/18 11:04 Pulse Ox 94 L 01/15/18 11:04 Intake & Output 01/14/18 01/15/18 01/15/18 18:59 06:59 18:59 Intake Total 890 140 Output Total 2500 Balance -1610 140 Intake: IV 10 20 Invasive Line 1 10 20 Oral 880 120 Output: Urine 600 Other 1900 Other: Voiding Method Toilet Toilet Toilet Urinal Urinal Urinal - Exam GENERAL EXAM GEN. APPEARANCE: alert, in no apparent distress HEAD EXAM: atraumatic, normocephalic, normal inspection EYE EXAM: Mild pallor. No icterus NECK EXAM: normal inspection. Absent: tenderness, meningismus, full ROM, lymphadenopathy RESPIRATORY EXAM: Diminished breath sounds on the right lower lobe. Coarse breath sounds in all lung figueroa. CARDIOVASCULAR EXAM: Irregularly irregular. S1-S2 heard. GI/ABDOMINAL EXAM: Mildly distended. Soft nontender. Bowel sounds positive EXTREMITIES EXAM: Mild pitting edema in bilateral lower extremities NEUROLOGICAL EXAM: alert, oriented X3, no focal neurological deficits - Labs CBC & Chem 7: 01/15/18 05:39 01/15/18 05:39 Labs: Abnormal Lab Results - Last 24 Hours (Table) 01/14/18 01/15/18 01/15/18 Range/Units 20:54 05:39 05:39 MCHC 30.0 L (31.0-37.0) g/dL RDW 17.2 H (11.5-15.5) % Neutrophils # 7.8 H (1.3-7.7) k/uL Lymphocytes # 0.8 L (1.0-4.8) k/uL Sodium 133 L (137-145) mmol/L Chloride 96 L (98-107) mmol/L BUN 36 H (9-20) mg/dL Glucose 121 H (74-99) mg/dL POC Glucose (mg/dL) 143 H (75-99) mg/dL 01/15/18 01/15/18 Range/Units 05:40 10:50 MCHC (31.0-37.0) g/dL RDW (11.5-15.5) % Neutrophils # (1.3-7.7) k/uL Lymphocytes # (1.0-4.8) k/uL Sodium (137-145) mmol/L Chloride (98-107) mmol/L BUN (9-20) mg/dL Glucose (74-99) mg/dL POC Glucose (mg/dL) 106 H 221 H (75-99) mg/dL Microbiology - Last 24 Hours (Table) 01/14/18 13:00 Gram Stain - Preliminary Pleural Fluid Body Fluid Culture - Preliminary 01/14/18 13:00 Acid Fast Bacilli Smear - Final Pleural Fluid Acid Fast Bacilli Culture - Preliminary 01/14/18 13:00 Fungal Culture - Preliminary Pleural Fluid Assessment and Plan Assessment: ASSESSMENT Atrial fibrillation with RVR Dehydration Acute on chronic exacerbation of CHF ejection fraction 25% systolic dysfunction Chronic ascites with frequent paracentesis Right pleural effusion History of Throat cancer History of CVA/TIA Coronary disease with AR and stents Liver disease Diabetes type 2 History of DVT and pulmonary embolism History of GERD Plan: As the probable reason for the patient's drowsiness is narcotics, they are held for now. Patient had thoracocentesis done yesterday with 1.9 L of fluid removed. Continue with breathing treatments. Cardiology on board and following the patient and his RVR is under better control currently. Continue with IV Lasix. Overall prognosis is guarded. Further recommendations to follow depending on the progress of the patient.
[2018-01-15 16:24] LABS: Glucose,Whole Blood 99 mg/dL (75-99)
[2018-01-15] MEDS: FUROSEMIDE 10 MG/ML 4 ML VIAL IV SCH (16:58)
[2018-01-15 17:07] LABS: Appearance,Urine Clear (Clear); Bilirubin,Urine Negative (Negative); Blood,Urine Negative (Negative); Color,Urine Yellow; Glucose,Urine (UA) Negative (Negative); Ketones,Urine Negative (Negative); Leukocyte Esterase,Urine Negative (Negative); Nitrite,Urine Negative (Negative); PH, Urine 5.5 (5.0-8.0); Protein,Urine Trace (Negative); Specific Gravity,Urine 1.017 (1.001-1.035)
[2018-01-15 21:46] LABS: Glucose,Whole Blood 135 mg/dL (75-99)
[2018-01-15] MEDS ORDERED: FUROSEMIDE 40 MG TAB PO STA (22:33)
[2018-01-16] MEDS: FUROSEMIDE 10 MG/ML 4 ML VIAL IV SCH (00:06)
[2018-01-16] MEDS: ENOXAPARIN 80 MG/0.8 ML SYRINGE SQ SCH ×2 (03:33→16:08)
[2018-01-16 06:31] LABS: Glucose,Whole Blood 99 mg/dL (75-99)
[2018-01-16] MEDS: INSULIN ASPART 100 UNIT/ML 1 ML 10 ML VIAL SQ SCH ×4 (06:34→20:53)
[2018-01-16] MEDS: IPRATROPIUM-ALBUTEROL 3 ML NEB INHALATION SCH ×4 (08:03→21:24)
[2018-01-16] MEDS: SYMBICORT 160-4.5 MCG INHALER INHALATION SCH ×2 (08:04→21:24)
[2018-01-16] MEDS: ASPIRIN 81 MG PO SCH (08:33)
[2018-01-16] MEDS: FUROSEMIDE 40 MG TAB PO SCH ×2 (08:33→20:20)
[2018-01-16] MEDS: SUCRALFATE 1 GM TAB PO SCH ×2 (08:33→17:48)
[2018-01-16] MEDS: SPIRONOLACTONE 25 MG TAB PO SCH ×2 (08:33→20:21)
[2018-01-16] MEDS: METOPROLOL TARTRATE 50 MG TAB PO SCH ×3 (08:33→21:03)
[2018-01-16] MEDS: ISOSORBIDE MONONITRATE ER 30 MG TAB.ER.24H PO SCH (08:33)
[2018-01-16] MEDS: FAMOTIDINE 20 MG TAB PO SCH ×2 (08:33→20:20)
[2018-01-16] MEDS: NICOTINE 14MG/24HR PATCH TRANSDERM SCH (08:34)
[2018-01-16 11:09] LABS: Anisocytosis Slight; Basophils % (A) 0 %; Eosinophils # (A) 0.9 k/uL (0-0.7); Eosinophils % (A) 13 %; HCT 39.3 % (39.0-53.0); HGB 12.2 gm/dL (13.0-17.5); Hypochromasia Moderate; Lymphocytes # (A) 0.5 k/uL (1.0-4.8); Lymphocytes % (A) 8 %; MCH 27.2 pg (25.0-35.0); MCV 87.7 fL (80.0-100.0); Mean Platelet Volume 7.6; Monocytes # (A) 0.5 k/uL (0-1.0); Monocytes % (A) 7 %; Neutrophils # (A) 5.1 k/uL (1.3-7.7); Neutrophils % (A) 70 %; Platelet Count 201 k/uL (150-450); RBC 4.48 m/uL (4.30-5.90); RDW 17.3 % (11.5-15.5); WBC 7.2 k/uL (3.8-10.6)
[2018-01-16 11:19] LABS: Glucose,Whole Blood 137 mg/dL (75-99)
[2018-01-16 11:23] LABS: Anion Gap 7 mmol/L; Blood Urea Nitrogen 29 mg/dL (9-20); Calcium 8.6 mg/dL (8.4-10.2); Carbon Dioxide 31 mmol/L (22-30); Chloride 99 mmol/L (98-107); Glucose 132 mg/dL (74-99); Potassium 3.8 mmol/L (3.5-5.1); Sodium 137 mmol/L (137-145)
--- NOTE | 2018-01-16 13:06 | P.PN ---
Subjective Progress Note Date: 01/16/18 Principal diagnosis: CHF, pleural effusion This is a 62-year-old gentleman well known to our practice, he has history of ischemic cardiomyopathy with prior myocardial infarctions and stent placements, recurrent ascites with recurrent paracentesis, diabetes, hypertension, hyperlipidemia, prior pulmonary embolism, chronic persistent atrial fibrillation, nicotine dependence, COPD, who states that he's been having significant abdominal pain, he has been delaying coming to the hospital because he knew he was scheduled yesterday for paracentesis. He underwent a paracentesis yesterday, and in spite of that continued to have abdominal discomfort. He has been having some diarrhea stools and frequent episodes of nausea and vomiting. Patient states he was also having some discomfort in his upper left shoulder blade for which cardiology was consulted. The patient has also lost a considerable amount of weight, at least 80 pounds. Chest x-ray showed increased right pleural effusion as compared with last exam, mild congestive cardiac failure and pulmonary congestion. EKG shows atrial fibrillation with moderately rapid ventricular response, occasional PVC and nonspecific ST-T wave changes. NT proBNP of 12,600. Patient was started on lisinopril yesterday. Laboratory values this morning showed a potassium of 3.8, BUN of 29 and creatinine 0.85. Echocardiogram done this admission shows severely impaired LV systolic function with an ejection fraction between 20-25% , moderate mitral regurgitation, moderate pulmonary hypertension and severe tricuspid regurgitation. Patient underwent a right-sided thoracentesis 2 days ago roughly 2000 mL of leslye-colored fluid was removed. Upon examination this morning, patient is resting comfortably in bed with family at bedside. Breathing is significantly improved compared to 2 days ago. Vital signs are stable. Objective - Vital Signs Vital signs: Vital Signs Temp 97.7 F 01/16/18 12:00 Pulse 86 01/16/18 12:36 Resp 16 01/16/18 12:00 BP 118/71 01/16/18 12:00 Pulse Ox 95 01/16/18 12:00 Intake & Output 01/15/18 01/16/18 01/16/18 19:59 06:59 18:59 Intake Total 360 Balance 360 Weight 67.5 kg Intake: IV Invasive Line 1 Oral 360 Other: Voiding Method Toilet Urinal # Voids - Exam PHYSICAL EXAMINATION: HEENT: Head is atraumatic, normocephalic. Pupils equal, round. Neck is supple. There is elevated jugular venous pressure. HEART EXAMINATION: Heart sounds irregularly irregular, S1 and S2 systolic murmur. CHEST EXAMINATION: Lungs are clear with diminished air entry to bilateral bases. No chest wall tenderness is noted on palpation or with deep breathing. ABDOMEN: Soft, mildly distended, nontender. Bowel sounds are heard. No organomegaly noted. EXTREMITIES: 2+ peripheral pulses with evidence of trace peripheral edema and no calf tenderness noted. NEUROLOGIC patient is awake, alert and oriented x3. . - Labs CBC & Chem 7: 01/16/18 10:39 01/16/18 10:39 Labs: Abnormal Lab Results - Last 24 Hours (Table) 01/15/18 01/15/18 01/16/18 Range/Units 16:30 21:37 10:39 Hgb 12.2 L (13.0-17.5) gm/dL RDW 17.3 H (11.5-15.5) % Lymphocytes # 0.5 L (1.0-4.8) k/uL Eosinophils # 0.9 H (0-0.7) k/uL Carbon Dioxide (22-30) mmol/L BUN (9-20) mg/dL Glucose (74-99) mg/dL POC Glucose (mg/dL) 135 H (75-99) mg/dL Urine Protein Trace H (Negative) 01/16/18 01/16/18 Range/Units 10:39 11:17 Hgb (13.0-17.5) gm/dL RDW (11.5-15.5) % Lymphocytes # (1.0-4.8) k/uL Eosinophils # (0-0.7) k/uL Carbon Dioxide 31 H (22-30) mmol/L BUN 29 H (9-20) mg/dL Glucose 132 H (74-99) mg/dL POC Glucose (mg/dL) 137 H (75-99) mg/dL Urine Protein (Negative) Microbiology - Last 24 Hours (Table) 01/14/18 13:00 Gram Stain - Preliminary Pleural Fluid Body Fluid Culture - Preliminary Assessment and Plan Assessment: #1 symptoms of persistent nausea and vomiting with associated abdominal discomfort. Patient underwent a paracentesis 01/12/18. #2 systolic congestive heart failure acute on chronic, associated pleural effusion, patient underwent paracentesis 01/14/18 #3 atrial fibrillation, chronic persistent #4 known history of coronary artery disease with prior myocardial infarctions and stent placements #5 diabetes #6 hyperlipidemia #7 hypertension #8 history of CVA with prior TIA #9 nicotine dependence #10 COPD #11 ischemic cardiomyopathy with prior documented ejection fraction of 20-25% by echo performed this admission, moderate MR, moderate to severe TR Plan: From Cardiology's perspective, continue current dose of oral lasix. Continue to follow renal function and electrolytes. We will continue to follow the patient for further recommendations accordingly. LABORATORY AIDE note has been reviewed, I agree with a documented findings and plan of care. Patient was seen and examined.
--- NOTE | 2018-01-16 14:19 | P.PN ---
Subjective Progress Note Date: 01/16/18 Principal diagnosis: Chest pain, A. fib with RVR, Right sided pleural effusion. Mr. Monet is a 62-year-old male with a past medical history of Atrial Fibrillation, Coronary Artery Disease (CAD), Cancer, Heart Failure, CVA/TIA, Diabetes Mellitus, Deep Vein Thrombosis (DVT), GERD/Reflux, Liver Disease, Myocardial Infarction (MD), Prostate Disorder, Pulmonary Embolus (PE) coming into the hospital with a chief complaint of chest pain and difficulty in breathing. Patient has history of chronic ascites and frequent paracentesis done. Patient has a chest x-ray showing increased pleural effusion on the right side and also found to be in A. fib with RVR so admitted for further management. Patient had thoracentesis done on 01/14/18 - with 1.9 L of fluid removed. On 01/15/18- as per the nursing staff report the patient was very drowsy this morning and his blood pressure was running a little bit on the lower side. Patient has been getting [place] and Dilaudid. He is lying in bed appears to be no acute distress. Patient states that his breathing has improved a little bit after the thoracentesis but not a lot of relief. His girlfriend for the past 18 years has been at the bedside and states sometimes he overdoses on the pain medications and drops his blood pressure and becomes drowsy. On 01/16/18 - as per the nursing staff report patient has been leaking from his thoracentesis site last night. They covered the site with 4 x 4 after which irritate at bedtime stopped. Apparently he is getting confused during the evening time but in the morning during the rounds patient this AAO 2-3. Patient is sitting on his bed comfortably. His son is at the bedside. Review of systems - Constitutional -Patient denies having any fevers chills or rigors. Cardiovascular- no active chest pain. Occasional palpitations Respiratory-difficulty in breathing improved to some extent. No cough. GI-patient has chronic abdominal distention due to ascites -no dysuria or hematuria. Neurological-no focal weakness. Active Medications Albuterol/Ipratropium (Duoneb 0.5 Mg-3 Mg/3 Ml Soln) 3 ml INHALATION RT-QID [facility] Last Admin: 01/16/18 12:26 Dose: 3 ml Aspirin (Aspirin) 81 mg PO DAILY [facility] Last Admin: 01/16/18 08:33 Dose: 81 mg Budesonide/Formoterol Fumarate (Symbicort 160-4.5 Mcg Inhaler) 2 puff INHALATION RT-BID [facility] Last Admin: 01/16/18 08:04 Dose: Not Given Enoxaparin Sodium (Lovenox) 80 mg SQ Q12H [facility] Last Admin: 01/16/18 03:33 Dose: Not Given Famotidine (Pepcid) 20 mg PO BID [facility] Last Admin: 01/16/18 08:33 Dose: 20 mg Furosemide (Lasix) 40 mg PO BID@0900,2100 [facility] Last Admin: 01/16/18 08:33 Dose: 40 mg Haloperidol Lactate (Haldol) 1 mg IVP Q4HR PRN PRN Reason: Agitation or Acute Psychosis Last Admin: 01/15/18 01:56 Dose: 1 mg Insulin Aspart (Novolog) 0 unit SQ [facility]; Protocol Last Admin: 01/16/18 12:25 Dose: 1 unit Isosorbide Mononitrate (Imdur) 30 mg PO DAILY [facility] Last Admin: 01/16/18 08:33 Dose: 30 mg Metoprolol Tartrate (Lopressor) 50 mg PO TID [facility] Last Admin: 01/16/18 08:33 Dose: 50 mg Naloxone HCl (Narcan) 0.2 mg IV Q2M PRN PRN Reason: Opioid Reversal Nicotine (Habitrol 14mg/24hr Patch) 1 patch TRANSDERM DAILY [facility] Last Admin: 01/16/18 08:34 Dose: Not Given Ondansetron HCl (Zofran) 4 mg IVP Q6HR PRN PRN Reason: Nausea And Vomiting Quetiapine Fumarate (Seroquel) 25 mg PO HS [facility] Last Admin: 01/15/18 22:37 Dose: 25 mg Spironolactone (Aldactone) 25 mg PO BID [facility] Last Admin: 01/16/18 08:33 Dose: 25 mg Sucralfate (Carafate) 1 gm PO AC-BID [facility] Last Admin: 01/16/18 08:33 Dose: 1 gm Tramadol HCl (Ultram) 50 mg PO Q6HR PRN PRN Reason: Pain Last Admin: 01/16/18 12:25 Dose: 50 mg Objective - Vital Signs Vital signs: Vital Signs Temp 97.7 F 01/16/18 12:00 Pulse 86 01/16/18 12:36 Resp 16 01/16/18 12:00 BP 118/71 01/16/18 12:00 Pulse Ox 95 01/16/18 12:00 Intake & Output 01/15/18 01/16/18 01/16/18 19:59 06:59 18:59 Intake Total 360 Balance 360 Weight 67.5 kg Intake: IV Invasive Line 1 Oral 360 Other: Voiding Method Toilet Urinal # Voids - Exam GENERAL EXAM GEN. APPEARANCE: alert, in no apparent distress HEAD EXAM: atraumatic, normocephalic, normal inspection EYE EXAM: Mild pallor. No icterus NECK EXAM: normal inspection. Absent: tenderness, meningismus, full ROM, lymphadenopathy RESPIRATORY EXAM: Diminished breath sounds on the right lower lobe. Site of thoracentesis - no bleeding. The pad is slightly soaked with clear discharge. Coarse breath sounds in all lung figueroa. CARDIOVASCULAR EXAM: Irregularly irregular. S1-S2 heard. GI/ABDOMINAL EXAM: Mildly distended. Soft nontender. Bowel sounds positive EXTREMITIES EXAM: Mild pitting edema in bilateral lower extremities NEUROLOGICAL EXAM: alert, oriented X3, no focal neurological deficits - Labs CBC & Chem 7: 01/16/18 10:39 01/16/18 10:39 Labs: Abnormal Lab Results - Last 24 Hours (Table) 01/15/18 01/15/18 01/16/18 Range/Units 16:30 21:37 10:39 Hgb 12.2 L (13.0-17.5) gm/dL RDW 17.3 H (11.5-15.5) % Lymphocytes # 0.5 L (1.0-4.8) k/uL Eosinophils # 0.9 H (0-0.7) k/uL Carbon Dioxide (22-30) mmol/L BUN (9-20) mg/dL Glucose (74-99) mg/dL POC Glucose (mg/dL) 135 H (75-99) mg/dL Urine Protein Trace H (Negative) 01/16/18 01/16/18 Range/Units 10:39 11:17 Hgb (13.0-17.5) gm/dL RDW (11.5-15.5) % Lymphocytes # (1.0-4.8) k/uL Eosinophils # (0-0.7) k/uL Carbon Dioxide 31 H (22-30) mmol/L BUN 29 H (9-20) mg/dL Glucose 132 H (74-99) mg/dL POC Glucose (mg/dL) 137 H (75-99) mg/dL Urine Protein (Negative) Assessment and Plan Assessment: ASSESSMENT Atrial fibrillation with RVR Dehydration Acute on chronic exacerbation of CHF ejection fraction 25% systolic dysfunction Chronic ascites with frequent paracentesis Right pleural effusion History of Throat cancer History of CVA/TIA Coronary disease with [place] and stents Liver disease Diabetes type 2 History of DVT and pulmonary embolism History of GERD Plan: As the probable reason for the patient's drowsiness is narcotics, they are held for now. Patient is usually confused during the evening times- and be signs of early dementia. Continue with breathing treatments. Cardiology on board and following the patient and his RVR is under better control currently. Continue with IV Lasix. Overall prognosis is guarded. Further recommendations to follow depending on the progress of the patient.
[2018-01-16 16:45] LABS: Glucose,Whole Blood 142 mg/dL (75-99)
[2018-01-16] MEDS: QUEtiapine 25 MG TAB PO SCH (20:20)
[2018-01-17] MEDS: ENOXAPARIN 80 MG/0.8 ML SYRINGE SQ SCH (02:53)
[2018-01-17 06:16] LABS: Glucose,Whole Blood 111 mg/dL (75-99)
[2018-01-17] MEDS: INSULIN ASPART 100 UNIT/ML 1 ML 10 ML VIAL SQ SCH ×2 (06:27→13:02)
[2018-01-17] MEDS: SUCRALFATE 1 GM TAB PO SCH (06:36)
[2018-01-17] MEDS: IPRATROPIUM-ALBUTEROL 3 ML NEB INHALATION SCH ×3 (08:01→13:12)
[2018-01-17] MEDS: SYMBICORT 160-4.5 MCG INHALER INHALATION SCH (08:01)
[2018-01-17] MEDS: ISOSORBIDE MONONITRATE ER 30 MG TAB.ER.24H PO SCH (09:48)
[2018-01-17] MEDS: SPIRONOLACTONE 25 MG TAB PO SCH (09:48)
[2018-01-17] MEDS: ASPIRIN 81 MG PO SCH (09:49)
[2018-01-17] MEDS: FAMOTIDINE 20 MG TAB PO SCH (09:49)
[2018-01-17] MEDS: FUROSEMIDE 40 MG TAB PO SCH (09:49)
[2018-01-17] MEDS: METOPROLOL TARTRATE 50 MG TAB PO SCH (09:49)
[2018-01-17] MEDS: NICOTINE 14MG/24HR PATCH TRANSDERM SCH (09:49)
[2018-01-17 10:12] VITALS: RESP 20
--- NOTE | 2018-01-17 10:46 | P.PN ---
Subjective Progress Note Date: 01/17/18 This is a 62-year-old gentleman well known to our practice, he has history of ischemic cardiomyopathy with prior myocardial infarctions and stent placements, recurrent ascites with recurrent paracentesis, diabetes, hypertension, hyperlipidemia, prior pulmonary embolism, chronic persistent atrial fibrillation, nicotine dependence, COPD, who states that he's been having significant abdominal pain, he has been delaying coming to the hospital because he knew he was scheduled yesterday for paracentesis. He underwent a paracentesis yesterday, and in spite of that continued to have abdominal discomfort. He has been having some diarrhea stools and frequent episodes of nausea and vomiting. Patient states he was also having some discomfort in his upper left shoulder blade for which cardiology was consulted. The patient has also lost a considerable amount of weight, at least 80 pounds. Chest x-ray showed increased right pleural effusion as compared with last exam, mild congestive cardiac failure and pulmonary congestion. EKG shows atrial fibrillation with moderately rapid ventricular response, occasional PVC and nonspecific ST-T wave changes. White blood cell count 7.4, hemoglobin 14.4, platelet count 233. Sodium 137, potassium 4.3, BUN 15, creatinine 0.5. BNP level 12,600., troponin 0.0-3. Blood pressure 127/78 with a heart rate in the 90s this morning, 97% on room air. He is currently on IV Cardizem at 5 mg per hour. 01/15/2018 Patient underwent a right-sided thoracentesis 2 days ago roughly 2000 mils of leslye-colored fluid was removed. Patient was seen and examined today, breathing is improved as compared with yesterday. Very sleepy this morning. White blood cell count 9.6, hemoglobin 13.8. Creatinine 1.2. Chest x-ray report reveals near complete resolution of the right pleural fluid. Tiny left pleural effusion noted. Hemodynamically stable with a blood pressure of 107/70 this morning. 01/17/2018 Patient was seen and examined this morning, sitting up at bedside, overall feeling well. Anticipating discharge home today. Blood pressure 118/70, heart rate in the 80s, 94% on room air. No lab data today. Objective - Vital Signs Vital signs: Vital Signs Temp 96.7 F L 01/17/18 08:00 Pulse 82 01/17/18 08:00 Resp 20 01/17/18 08:00 BP 117/73 01/17/18 08:00 Pulse Ox 94 L 01/17/18 08:00 Intake & Output 01/16/18 01/17/18 01/17/18 18:59 06:59 18:59 Intake Total 620 480 100 Output Total 500 500 Balance 120 -20 100 Weight 67.5 kg 67.1 kg Intake: Oral 620 480 100 Output: Urine 500 500 Other: Voiding Method Toilet Toilet Urinal Urinal - Exam PHYSICAL EXAMINATION: GENERAL: 62-year-old gentleman appears frail, in no acute distress at the time of my examination. HEENT: Head is atraumatic, normocephalic. Pupils equal, round. Sclera anicteric. Conjunctiva are clear. Mucous membranes of the mouth are moist. Neck is supple. There is elevated jugular venous pressure. No carotid bruit is heard. HEART EXAMINATION: Heart S1 and S2 irregularly irregular systolic murmur is heard. CHEST EXAMINATION: Lungs are clear with improvement in air entry to bilateral bases. ABDOMEN: Soft, mildly distended . Bowel sounds are heard. No organomegaly noted. EXTREMITIES: 2+ peripheral pulses with no evidence of peripheral edema and no calf tenderness noted. NEUROLOGIC patient is awake, alert and oriented 3 - Labs CBC & Chem 7: 01/16/18 10:39 01/16/18 10:39 Labs: Abnormal Lab Results - Last 24 Hours (Table) 01/16/18 01/16/18 01/16/18 Range/Units 10:39 10:39 11:17 Hgb 12.2 L (13.0-17.5) gm/dL RDW 17.3 H (11.5-15.5) % Lymphocytes # 0.5 L (1.0-4.8) k/uL Eosinophils # 0.9 H (0-0.7) k/uL Carbon Dioxide 31 H (22-30) mmol/L BUN 29 H (9-20) mg/dL Glucose 132 H (74-99) mg/dL POC Glucose (mg/dL) 137 H (75-99) mg/dL 01/16/18 01/17/18 Range/Units 16:44 06:13 Hgb (13.0-17.5) gm/dL RDW (11.5-15.5) % Lymphocytes # (1.0-4.8) k/uL Eosinophils # (0-0.7) k/uL Carbon Dioxide (22-30) mmol/L BUN (9-20) mg/dL Glucose (74-99) mg/dL POC Glucose (mg/dL) 142 H 111 H (75-99) mg/dL Microbiology - Last 24 Hours (Table) 01/14/18 13:00 Gram Stain - Preliminary Pleural Fluid Body Fluid Culture - Preliminary Assessment and Plan Plan: Assessment and plan #1 symptoms of persistent nausea and vomiting with associated abdominal discomfort. Patient underwent a paracentesis yesterday. #2 systolic congestive heart failure acute on chronic, associated pleural effusion #3 atrial fibrillation, chronic persistent #4 known history of coronary artery disease with prior myocardial infarctions and stent placements #5 diabetes #6 hyperlipidemia #7 hypertension #8 history of CVA with prior TIA #9 nicotine dependence #10 COPD #11 ischemic cardiomyopathy with prior documented ejection fraction of less than 20% by echo performed in September, moderate MR, moderate to severe TR Plan From cardiology's perspective, we'll continue current medications. He may be able to be discharged home once cleared by primary, we'll make a follow-up appointment in the office post discharge. DNP note has been reviewed, I agree with a documented findings and plan of care. Patient was seen and examined.
[2018-01-17 11:22] VITALS: BMI 23.1
[2018-01-17 11:43] LABS: Glucose,Whole Blood 203 mg/dL (75-99)
[2018-01-17 13:10] VITALS: BP 125/77; TEMP 97.5
[2018-01-17 13:26] VITALS: PULSE 90
--- NOTE | 2018-01-18 23:58 | P.DS ---
Providers Date of admission: 01/13/18 01:28 Expected date of discharge: 01/17/18 Attending physician: Andrews Escobar Consults: 01/13/18 01:25 Consult Physician Urgent Consulting Provider: [facility] Consult Reason/Comments: chestpain, RVR Do you want consulting provider notified?: Yes, Notify in am 01/13/18 10:27 Consult Physician Urgent Consulting Provider: Oliverio Mc Consult Reason/Comments: pleural effusion Do you want consulting provider notified?: Yes 01/13/18 14:49 Consult Physician Routine Consulting Provider: Vy Sanches Consult Reason/Comments: Abd. pain Do you want consulting provider notified?: Yes Primary care physician: Andrews Escobar Hospital Course: Discharge diagnosis Atrial fibrillation with RVR Acute on chronic exacerbation of CHF ejection fraction 25% systolic dysfunction Chronic ascites with frequent paracentesis Right pleural effusion History of Throat cancer History of CVA/TIA Coronary disease with VT and stents Liver disease Diabetes type 2 History of DVT and pulmonary embolism History of GERD Hospital course Mr. Monet is a 62-year-old male with a past medical history of Atrial Fibrillation, Coronary Artery Disease (CAD), Cancer, Heart Failure, CVA/TIA, Diabetes Mellitus, Deep Vein Thrombosis (DVT), GERD/Reflux, Liver Disease, Myocardial Infarction (VT), Prostate Disorder, Pulmonary Embolus (PE) coming into the hospital with a chief complaint of chest pain and difficulty in breathing. Patient has history of chronic ascites and frequent paracentesis done. Patient has a chest x-ray showing increased pleural effusion on the right side and also found to be in A. fib with RVR so admitted for further management. Patient had thoracentesis done on 01/14/18 - with 1.9 L of fluid removed. On 01/15/18- as per the nursing staff report the patient was very drowsy this morning and his blood pressure was running a little bit on the lower side. Patient has been getting Dickens and Dilaudid. He is lying in bed appears to be no acute distress. Patient states that his breathing has improved a little bit after the thoracentesis but not a lot of relief. His girlfriend for the past 18 years has been at the bedside and states sometimes he overdoses on the pain medications and drops his blood pressure and becomes drowsy. On 01/16/18 - as per the nursing staff report patient has been leaking from his thoracentesis site last night. They covered the site with 4 x 4 after which irritate at bedtime stopped. Apparently he is getting confused during the evening time but in the morning during the rounds patient this AAO 2-3. Patient is sitting on his bed comfortably. His son is at the bedside. 01/17/2018 Patient denied any complaints of chest pain or shortness of breath. Heart rate is better controlled. No oozing noted from the resident's site. No fever no chills. No acute overnight issues. Cleared from cardiology standpoint. Patient is awake alert oriented 3. Patient was drowsy with a dose of Dilaudid initially. Currently patient is awake alert and oriented.. Physical examination GEN. APPEARANCE: alert, in no apparent distress HEAD EXAM: atraumatic, normocephalic, normal inspection EYE EXAM: Mild pallor. No icterus NECK EXAM: normal inspection. Absent: tenderness, meningismus, full ROM, lymphadenopathy RESPIRATORY EXAM: Diminished breath sounds on the right lower lobe. Site of thoracentesis - no bleeding/oozing. No wheezing. CARDIOVASCULAR EXAM: Irregularly irregular. S1-S2 heard. GI/ABDOMINAL EXAM: Mildly distended. Soft nontender. Bowel sounds positive EXTREMITIES EXAM: Mild pitting edema in bilateral lower extremities NEUROLOGICAL EXAM: alert, oriented X3, no focal neurological deficits Vitals reviewed. Total time taken greater than 35 minutes including 18 minutes for counseling and coordination of care. Patient Condition at Discharge: Stable Plan - Discharge Summary Discharge Rx Participant: No New Discharge Prescriptions: New Aspirin 81 mg PO DAILY #30 chew Isosorbide Mononitrate ER [Imdur] 30 mg PO DAILY #30 tab.er.24h Metoprolol Tartrate [Lopressor] 50 mg PO TID #90 tab QUEtiapine [SEROquel] 25 mg PO HS #30 tab Enoxaparin [Lovenox] 80 mg SQ Q12H syringe Continue Ipratropium/Albuterol Sulfate [Combivent Respimat Inhaler] 1 puff INHALATION RT-TID PRN PRN Reason: Shortness Of Breath Atorvastatin [Lipitor] 80 mg PO HS Omeprazole [PriLOSEC] 20 mg PO BID #60 wil. Cyclobenzaprine [Flexeril] 10 mg PO TID PRN PRN Reason: Pain Albuterol Inhaler [Ventolin Hfa Inhaler] 2 puff INHALATION RT-Q4H PRN PRN Reason: Shortness Of Breath Spironolactone [Aldactone] 25 mg PO BID Furosemide [Lasix] 40 mg PO BID #60 tablet metFORMIN HCL [Glucophage] 500 mg PO DAILY Albuterol Nebulized [Ventolin Nebulized] 2.5 mg INHALATION RT-QID PRN PRN Reason: Shortness Of Breath Nitroglycerin Sl Tabs [Nitrostat] 0.4 mg SUBLINGUAL Q5M PRN #100 tab PRN Reason: Chest Pain Discontinued Hydrocodone/Acetaminophen [Dickens 10-325] 1 tab PO Q4H PRN PRN Reason: Pain Metoprolol Tartrate [Lopressor] 50 mg PO BID Discharge Medication List Ipratropium/Albuterol Sulfate [Combivent Respimat Inhaler] 1 puff INHALATION RT- TID PRN 02/01/14 [History] Atorvastatin [Lipitor] 80 mg PO HS 04/13/14 [History] Omeprazole [PriLOSEC] 20 mg PO BID #60 capsule. 04/27/14 [Rx] Cyclobenzaprine [Flexeril] 10 mg PO TID PRN 05/10/14 [History] Albuterol Inhaler [Ventolin Hfa Inhaler] 2 puff INHALATION RT-Q4H PRN 10/27/15 [ History] Spironolactone [Aldactone] 25 mg PO BID 01/24/16 [History] Furosemide [Lasix] 40 mg PO BID #60 tablet 09/04/16 [Rx] metFORMIN HCL [Glucophage] 500 mg PO DAILY 01/14/17 [History] Albuterol Nebulized [Ventolin Nebulized] 2.5 mg INHALATION RT-QID PRN 09/24/17 [ History] Nitroglycerin Sl Tabs [Nitrostat] 0.4 mg SUBLINGUAL Q5M PRN #100 tab 09/28/17 [ Rx] Aspirin 81 mg PO DAILY #30 chew 01/17/18 [Rx] Enoxaparin [Lovenox] 80 mg SQ Q12H syringe 01/17/18 [Rx] Isosorbide Mononitrate ER [Imdur] 30 mg PO DAILY #30 tab.er.24h 01/17/18 [Rx] Metoprolol Tartrate [Lopressor] 50 mg PO TID #90 tab 01/17/18 [Rx] QUEtiapine [SEROquel] 25 mg PO HS #30 tab 01/17/18 [Rx] Follow up Appointment(s)/Referral(s): Andrews Escobar MD [Primary Care Provider] - 01/18/18 1:10 pm (Wednesday -previously scheduled appointment) Maria Victoria Mayers MD [STAFF PHYSICIAN] - 01/31/18 3:45 pm Discharge Disposition: HOME SELF-CARE
== END 2018-01-17 15:07 | disposition home or self-care (01) | DRG 292 ==
LOC: EC 22:35 → 3SCARD 01-13 01:28
PROVIDERS: ADMIT Family Medicine; ATTEND Family Medicine
PROC: 0W993ZZ Drainage of Right Pleural Cavity, Percutaneous Approach (ICD-10-PCS; principal; 2018-01-14)
DX: I11.0 Hypertensive heart disease with heart failure (principal); I48.1 Persistent atrial fibrillation; R18.8 Other ascites; J90 Pleural effusion, not elsewhere classified; I50.23 Acute on chronic systolic (congestive) heart failure; Z85.21 Personal history of malignant neoplasm of larynx; E11.51 Type 2 diabetes mellitus with diabetic peripheral angiopathy without gangrene; Z79.84 Long term (current) use of oral hypoglycemic drugs; E78.5 Hyperlipidemia, unspecified; E86.0 Dehydration; F17.210 Nicotine dependence, cigarettes, uncomplicated; R45.1 Restlessness and agitation; I08.1 Rheumatic disorders of both mitral and tricuspid valves; I25.10 Atherosclerotic heart disease of native coronary artery without angina pectoris; I25.2 Old myocardial infarction; I25.5 Ischemic cardiomyopathy; I27.20 Pulmonary hypertension, unspecified; I48.2 Chronic atrial fibrillation; I49.3 Ventricular premature depolarization; I69.334 Monoplegia of upper limb following cerebral infarction affecting left non-dominant side; J44.9 Chronic obstructive pulmonary disease, unspecified; K21.9 Gastro-esophageal reflux disease without esophagitis; K43.9 Ventral hernia without obstruction or gangrene; K76.9 Liver disease, unspecified; Z79.51 Long term (current) use of inhaled steroids; Z79.82 Long term (current) use of aspirin; Z79.899 Other long term (current) drug therapy; Z82.49 Family history of ischemic heart disease and other diseases of the circulatory system; Z83.3 Family history of diabetes mellitus; Z86.711 Personal history of pulmonary embolism; Z86.718 Personal history of other venous thrombosis and embolism; Z92.3 Personal history of irradiation; Z95.5 Presence of coronary angioplasty implant and graft; R13.10 Dysphagia, unspecified; R19.7 Diarrhea, unspecified; K29.70 Gastritis, unspecified, without bleeding; Z71.6 Tobacco abuse counseling; G89.29 Other chronic pain; Z88.5 Allergy status to narcotic agent; Z88.8 Allergy status to other drugs, medicaments and biological substances; R63.4 Abnormal weight loss; Z68.23 Body mass index [BMI] 23.0-23.9, adult; N42.9 Disorder of prostate, unspecified
CPT/HCPCS: 36415; 71045; 71046; 76604; 76705; 80048; 80053; 81003; 82140; 82150; 82272; 82550; 82553; 82945; 83036; 83615; 83735; 83880; 84157; 84484; 85025; 85027; 85610; 85730; 87070; 87102; 87116; 87205; 87206; 87324; 88108; 88305; 89050; 93005; 93306; 94640; 94760; 96361; 96365; 96366; 96372; 96375; 96376; 99285

== ENCOUNTER → 2018-02-11 | Outpatient (CLI) | payer OTHER ==
[2018-02-11 09:32] LABS: Anisocytosis Slight; HCT 41.7 % (39.0-53.0); HGB 12.5 gm/dL (13.0-17.5); Hypochromasia Marked; MCHC 29.9 g/dL (31.0-37.0); MCV 90.3 fL (80.0-100.0); Mean Platelet Volume 6.8; Platelet Count 209 k/uL (150-450); RBC 4.62 m/uL (4.30-5.90); RDW 17.7 % (11.5-15.5); WBC 5.1 k/uL (3.8-10.6)
[2018-02-11 10:59] LABS: Erythrocyte Sedimentation Rate 15 mm/hr (0-15)
[2018-02-11 17:18] LABS: Albumin 3.8 g/dL (3.80-4.90); Albumin/Globulin Ratio 1.36 (1.20-2.10); Anion Gap 6.3 mmol/L (4.00-12.00); Calcium 8.8 mg/dL (8.7-10.3); Carbon Dioxide 27.7 mmol/L (21.6-31.8); Globulin 2.8 g/dL (2.1-3.7); Potassium 4.6 mmol/L (3.5-5.5); Total Bilirubin 0.8 mg/dL (0.3-1.2); Total Protein 6.6 g/dL (6.2-8.2)
== END | disposition home or self-care (01) ==
LOC: LABWHC1 08:03
DX: R10.9 Unspecified abdominal pain (principal)
CPT/HCPCS: 36415; 80053; 82150; 83690; 85027; 85652; 86140

== ENCOUNTER → 2018-02-22 | Outpatient (CLI) | payer OTHER ==
--- NOTE | 2018-02-22 16:50 | CT ---
EXAMINATION TYPE: CT abdomen pelvis w con DATE OF EXAM: 02/22/2018 COMPARISON: 11/28/2017 INDICATION: Abominal pain and distention DLP: 1148.6 mGycm, Automated exposure control for dose reduction was used. CONTRAST: 100 mL of Isovue 300. Study performed with Oral Contrast TECHNIQUE: Axial images were obtained from above the diaphragm to the pubic rami in the axial plane a t 5 mm thick sections. Reconstructed images are reviewed on the computer in the coronal plane. FINDINGS: Limited CT sections are obtained the lung bases. There is a moderate right pleural effusion. Minimal left pleural effusion is present.. CT ABDOMEN: Moderate ascites is present throughout the abdomen. Small amount of fluid, possibly from the abdomen into a hernia supraumbilical region subcutaneous tissues. Liver: There is moderate fatty infiltration to the liver. Couple of calcified granuloma are not exclu ded. Spleen: Appears to be scattered calcifications within the spleen likely calcified granuloma. Pancreas: Atrophic Adrenal glands: The adrenal glands are normal. Gallbladder: Normal Kidneys: No masses are evident. No hydronephrosis is present. There is a 4.7 cm cyst in the right l ateral mid kidney measuring 10 Hounsfield units. Delayed imaging is performed through the kidneys. S maller cortical renal cysts are evident on the delayed images bilaterally. Aorta: Vascular calcification is within the aorta. Inferior vena cava: Normal. CT PELVIS: Note is made of subcutaneous edema throughout the lower abdomen and pelvis. Loops of bowel within the abdomen and pelvis are normal. There are loops of bowel which are incom pletely distended or lack oral contrast limiting their evaluation. There is been bowel surgery within the pelvis. Appendix: Not visualized. Urinary bladder: Normal. Genitourinary structures: Prostate is prominent. Osseous structures: No suspicious lytic or sclerotic lesions. IMPRESSIONS: 1. Prominent ascites. 2. Moderate right and small left pleural effusion. 3. Renal cysts. 4. Moderate fatty infiltration of the liver.
== END | disposition home or self-care (01) ==
LOC: RADCTMAIN 14:09
DX: N28.1 Cyst of kidney, acquired (principal); R18.8 Other ascites; K76.0 Fatty (change of) liver, not elsewhere classified
CPT/HCPCS: 74177; Q9967

== ENCOUNTER 2018-02-25 12:53 | Day surgery (SDC) | payer OTHER ==
[2018-02-25 13:05] VITALS: TEMP 97.7
[2018-02-25 13:26] LABS: INR 1.2 (<1.2); Prothrombin Time 12.5 sec (9.0-12.0)
[2018-02-25 13:27] LABS: Mean Platelet Volume 7.7; Platelet Count 262 k/uL (150-450)
[2018-02-25 13:32] LABS: Glucose 95 mg/dL (74-99)
[2018-02-25 13:36] VITALS: RESP 20
[2018-02-25 14:15] VITALS: BP 144/85; PULSE 96
--- NOTE | 2018-02-25 14:49 | US ---
Therapeutic paracentesis. DATE OF EXAM: 02/25/2018 CLINICAL HISTORY: Ascites The procedure was discussed with the patient. The risks, complications, benefits, and alternatives we re discussed and any questions were answered. Informed consent was obtained. The patient was placed s upine on the ultrasound table and prepped and draped in the usual sterile fashion. All elements of maximal barrier technique were utilized. Under ultrasound guidance, access into the right lower quadrant was obtained, via the paracentesis catheter system and direct ultrasound guidanc e. Approximately 3.8 liters of straw-colored fluid was removed. The patient was stable throughout the pr ocedure and remained stable upon discharge from Department of Radiology. IMPRESSION: Successful therapeutic paracentesis under ultrasound guidance.
== END 2018-02-25 14:25 | disposition home or self-care (01) ==
LOC: RADPROMAIN 12:53
PROVIDERS: ATTEND Family Medicine
DX: R18.8 Other ascites (principal); C14.0 Malignant neoplasm of pharynx, unspecified
CPT/HCPCS: 49083; 82565; 82947; 85049; 85610; 88108; 88305

== ENCOUNTER 2018-03-11 17:00 | Inpatient (IN) | payer OTHER ==
[2018-03-11] MEDS ORDERED: IPRATROPIUM-ALBUTEROL 3 ML NEB INHALATION STA (17:40)
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
[2018-03-11 18:06] LABS: Anisocytosis Slight; Basophils % (A) 1 %; Eosinophils # (A) 0.2 k/uL (0-0.7); Eosinophils % (A) 5 %; HCT 44.5 % (39.0-53.0); HGB 13.3 gm/dL (13.0-17.5); Hypochromasia Marked; Lymphocytes # (A) 0.4 k/uL (1.0-4.8); Lymphocytes % (A) 8 %; MCH 26.1 pg (25.0-35.0); MCHC 29.8 g/dL (31.0-37.0); MCV 87.7 fL (80.0-100.0); Monocytes # (A) 0.5 k/uL (0-1.0); Monocytes % (A) 9 %; Neutrophils # (A) 3.9 k/uL (1.3-7.7); Neutrophils % (A) 75 %; Platelet Count 259 k/uL (150-450); RBC 5.07 m/uL (4.30-5.90); RDW 17.2 % (11.5-15.5); WBC 5.2 k/uL (3.8-10.6)
[2018-03-11 18:14] LABS: INR 1.2 (<1.2); Partial Thromboplastin Time 27.9 sec (22.0-30.0); Prothrombin Time 12.4 sec (9.0-12.0)
[2018-03-11 18:28] LABS: ALT 17 U/L (21-72); AST 32 U/L (17-59); Albumin 3.3 g/dL (3.5-5.0); Alkaline Phosphatase 407 U/L (38-126); Anion Gap 9 mmol/L; Blood Urea Nitrogen 19 mg/dL (9-20); Carbon Dioxide 25 mmol/L (22-30); Chloride 105 mmol/L (98-107); Glucose 108 mg/dL (74-99); Potassium 4.5 mmol/L (3.5-5.1); Sodium 139 mmol/L (137-145); Total Bilirubin 1.3 mg/dL (0.2-1.3); Total Protein 7.3 g/dL (6.3-8.2)
[2018-03-11 18:35] LABS: Creatine Kinase MB 6.1 ng/mL (0.0-2.4); Troponin I 0.017 ng/mL (0.000-0.034)
--- NOTE | 2018-03-11 18:42 | XR ---
EXAMINATION TYPE: XR chest 2V DATE OF EXAM: 03/11/2018 COMPARISON: 01/14/2018 HISTORY: Difficulty breathing TECHNIQUE: Frontal and lateral views of the chest are obtained. FINDINGS: There is pulmonary vascular congestion. There is moderate size right pleural effusion. Hea rt appears enlarged. There are chest leads. Bony thorax is intact. There is slight blunting of left c ostophrenic angle. IMPRESSION: Congestive heart failure with pleural effusions. Heart failure and pleural fluid signifi cantly increased compared to last exam.
[2018-03-11] MEDS ORDERED: MORPHINE SULFATE 4 MG/ML SYRINGE IVP STA (18:55)
[2018-03-11] MEDS ORDERED: ASPIRIN 325 MG TAB PO STA (19:37)
[2018-03-11] MEDS ORDERED: CYCLOBENZAPRINE 10 MG TAB PO PRN (19:44)
[2018-03-11] MEDS: IPRATROPIUM-ALBUTEROL 3 ML NEB INHALATION SCH (20:37)
[2018-03-11] MEDS: ENOXAPARIN 80 MG/0.8 ML SYRINGE SQ SCH (21:20)
[2018-03-11] MEDS: QUEtiapine 25 MG TAB PO SCH (21:21)
[2018-03-11] MEDS: METOPROLOL TARTRATE 50 MG TAB PO SCH (21:21)
[2018-03-11 21:22] LABS: Glucose,Whole Blood 132 mg/dL (75-99)
[2018-03-11] MEDS: HYDROcodone/APAP 10-325MG 1 EACH TAB PO SCH (21:22)
[2018-03-11] MEDS ORDERED: NITROGLYCERIN OINT 1 INCH/GM PACKET TOPICAL SCH (22:00)
[2018-03-11] MEDS: FUROSEMIDE 10 MG/ML 4 ML VIAL IV SCH (23:39)
[2018-03-12 00:37] LABS: Creatine Kinase MB 4.9 ng/mL (0.0-2.4); Troponin I 0.022 ng/mL (0.000-0.034)
[2018-03-12] MEDS: HYDROcodone/APAP 10-325MG 1 EACH TAB PO SCH ×7 (01:04→23:29)
[2018-03-12] MEDS: IPRATROPIUM-ALBUTEROL 3 ML NEB INHALATION PRN (02:53)
[2018-03-12] MEDS: MORPHINE SULFATE 2 MG/ML SYRINGE IVP PRN ×4 (03:13→21:08)
[2018-03-12 04:42] LABS: Glucose,Whole Blood 121 mg/dL (75-99)
[2018-03-12 06:12] LABS: Glucose,Whole Blood 106 mg/dL (75-99)
[2018-03-12] MEDS: PANTOPRAZOLE 40 MG TABLET PO SCH (06:20)
[2018-03-12 06:28] LABS: Anisocytosis Slight; Basophils # (A) 0.1 k/uL (0-0.2); Basophils % (A) 1 %; Eosinophils # (A) 0.2 k/uL (0-0.7); Eosinophils % (A) 4 %; HCT 42.5 % (39.0-53.0); HGB 12.8 gm/dL (13.0-17.5); Hypochromasia Marked; Lymphocytes # (A) 0.4 k/uL (1.0-4.8); Lymphocytes % (A) 9 %; MCH 26.7 pg (25.0-35.0); MCHC 30.1 g/dL (31.0-37.0); MCV 88.7 fL (80.0-100.0); Mean Platelet Volume 7.3; Monocytes # (A) 0.5 k/uL (0-1.0); Monocytes % (A) 11 %; Neutrophils # (A) 3.2 k/uL (1.3-7.7); Neutrophils % (A) 71 %; Platelet Count 220 k/uL (150-450); RDW 17.1 % (11.5-15.5); WBC 4.5 k/uL (3.8-10.6)
[2018-03-12 06:40] LABS: Anion Gap 7 mmol/L; Blood Urea Nitrogen 22 mg/dL (9-20); Calcium 8.7 mg/dL (8.4-10.2); Carbon Dioxide 29 mmol/L (22-30); Chloride 104 mmol/L (98-107); Glucose 97 mg/dL (74-99); Potassium 4.6 mmol/L (3.5-5.1); Sodium 140 mmol/L (137-145)
[2018-03-12 07:15] LABS: Creatine Kinase MB 4.4 ng/mL (0.0-2.4); Troponin I 0.017 ng/mL (0.000-0.034)
[2018-03-12] MEDS ORDERED: ASPIRIN 325 MG TAB PO SCH (09:00)
[2018-03-12] MEDS: IPRATROPIUM-ALBUTEROL 3 ML NEB INHALATION SCH ×4 (09:09→19:49)
[2018-03-12] MEDS: ENOXAPARIN 80 MG/0.8 ML SYRINGE SQ SCH ×2 (09:11→19:33)
[2018-03-12] MEDS: ISOSORBIDE MONONITRATE ER 30 MG TAB.ER.24H PO SCH (09:11)
[2018-03-12] MEDS: METOPROLOL TARTRATE 50 MG TAB PO SCH (09:11)
[2018-03-12] MEDS: metFORMIN 500 MG TAB PO SCH (09:11)
[2018-03-12] MEDS: FUROSEMIDE 10 MG/ML 4 ML VIAL IV SCH ×3 (09:12→23:30)
[2018-03-12 11:09] LABS: Glucose,Whole Blood 80 mg/dL (75-99)
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
[2018-03-12] MEDS ORDERED: ONDANSETRON 4 MG TAB PO PRN (16:01)
[2018-03-12] MEDS ORDERED: NITROGLYCERIN SL TABS 0.4 MG TAB SUBLINGUAL PRN (16:01)
[2018-03-12] MEDS ORDERED: HYOSCYAMINE SULFATE 0.125 MG TAB PO PRN (16:01)
[2018-03-12 17:09] LABS: Glucose,Whole Blood 116 mg/dL (75-99)
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
[2018-03-12] MEDS: QUEtiapine 25 MG TAB PO SCH (19:33)
[2018-03-12] MEDS: METOPROLOL TARTRATE 25 MG TAB PO SCH (19:33)
[2018-03-12 19:44] LABS: Appearance,Urine Clear (Clear); Bilirubin,Urine Negative (Negative); Blood,Urine Negative (Negative); Color,Urine Light Yellow; Glucose,Urine (UA) Negative (Negative); Ketones,Urine Negative (Negative); Leukocyte Esterase,Urine Negative (Negative); Nitrite,Urine Negative (Negative); PH, Urine 5.5 (5.0-8.0); Protein,Urine Negative (Negative); Specific Gravity,Urine 1.004 (1.001-1.035); Urobilinogen,Urine <2.0 mg/dL (<2.0)
[2018-03-12 21:07] LABS: Glucose,Whole Blood 107 mg/dL (75-99)
[2018-03-13] MEDS: MORPHINE SULFATE 2 MG/ML SYRINGE IVP PRN ×4 (00:30→20:53)
[2018-03-13] MEDS: HYDROcodone/APAP 10-325MG 1 EACH TAB PO SCH ×6 (03:45→23:30)
[2018-03-13] MEDS: IPRATROPIUM-ALBUTEROL 3 ML NEB INHALATION PRN (04:13)
[2018-03-13] MEDS: PANTOPRAZOLE 40 MG TABLET PO SCH (06:11)
[2018-03-13 06:13] LABS: Glucose,Whole Blood 132 mg/dL (75-99)
[2018-03-13 06:31] LABS: Anisocytosis Slight; Basophils % (A) 1 %; Eosinophils # (A) 0.1 k/uL (0-0.7); Eosinophils % (A) 4 %; HCT 40.5 % (39.0-53.0); HGB 12.1 gm/dL (13.0-17.5); Hypochromasia Marked; Lymphocytes # (A) 0.5 k/uL (1.0-4.8); Lymphocytes % (A) 12 %; MCH 26.4 pg (25.0-35.0); MCHC 29.9 g/dL (31.0-37.0); MCV 88.4 fL (80.0-100.0); Mean Platelet Volume 7.7; Monocytes # (A) 0.4 k/uL (0-1.0); Monocytes % (A) 11 %; Neutrophils # (A) 2.8 k/uL (1.3-7.7); Neutrophils % (A) 71 %; Platelet Count 237 k/uL (150-450); RBC 4.58 m/uL (4.30-5.90); RDW 17.2 % (11.5-15.5)
[2018-03-13 06:44] LABS: Anion Gap 6 mmol/L; Blood Urea Nitrogen 23 mg/dL (9-20); Calcium 8.5 mg/dL (8.4-10.2); Carbon Dioxide 31 mmol/L (22-30); Chloride 103 mmol/L (98-107); Glucose 131 mg/dL (74-99); Potassium 4.1 mmol/L (3.5-5.1); Sodium 140 mmol/L (137-145)
[2018-03-13] MEDS: IPRATROPIUM-ALBUTEROL 3 ML NEB INHALATION SCH ×4 (07:39→18:54)
[2018-03-13] MEDS: ENOXAPARIN 80 MG/0.8 ML SYRINGE SQ SCH ×2 (08:50→19:47)
[2018-03-13] MEDS: metFORMIN 500 MG TAB PO SCH (08:50)
[2018-03-13] MEDS: LOSARTAN 25 MG TAB PO SCH (08:51)
[2018-03-13] MEDS: ISOSORBIDE MONONITRATE ER 30 MG TAB.ER.24H PO SCH (08:51)
[2018-03-13] MEDS: ASPIRIN 81 MG PO SCH (08:51)
[2018-03-13] MEDS: METOPROLOL TARTRATE 25 MG TAB PO SCH ×2 (08:51→19:47)
[2018-03-13] MEDS: FUROSEMIDE 10 MG/ML 4 ML VIAL IV SCH ×2 (08:52→19:47)
--- NOTE | 2018-03-13 09:01 | US ---
EXAMINATION TYPE: US abdomen limited DATE OF EXAM: 03/13/2018 COMPARISON: US CLINICAL HISTORY: ascites. Ascites check Moderate amount of ascites present, more right flank IMPRESSION: Ascites
[2018-03-13 11:22] LABS: Glucose,Whole Blood 154 mg/dL (75-99)
--- NOTE | 2018-03-13 11:46 | US ---
EXAMINATION TYPE: US chest DATE OF EXAM: 03/13/2018 COMPARISON: CXR CLINICAL HISTORY: pleural effusion. Pleural effusion TECHNIQUE: Targeted ultrasound of the posterior lower bilateral hemithoraces EXAM MEASUREMENTS: Right Pleural Effusion pocket size: 10.2 cm Right skin surface to fluid distance: 4.1 cm Left Pleural Effusion pocket size: 3.8 cm Right side marked for possible thoracentesis outside the dept. Left side NOT marked for possible thoracentesis outside the dept. Pulmonologists are able to review the images in the patient?s EMR. IMPRESSIONS: 1. Lateral pleural effusions as noted.
--- NOTE | 2018-03-13 13:41 | P.PN ---
Subjective Patient is resting comfortably in bed. He feels slightly better than yesterday. Still mildly short of breath no chest discomfort On examination his pulse rate is in the 70s blood pressure 117/73 mmHg Mild JVD Bilateral lower extremity edema Reduced breath sounds bilaterally but I don't hear any rhonchi or crackles today line heart sounds are soft and irregular Labs were reviewed sodium and potassium and normal BUN 23 creatinine 0.86 Impression Congestive heart failure acute on chronic exacerbation with inducible systolic function Persistent atrial fibrillation Type 2 diabetes Suggest I'm not sure why this gentleman is on hyoscyamine and I will be stopping it today Reduce Lasix to 40 mrem IV twice daily line continue metoprolol 75 mg twice daily and later long-acting version of metoprolol should be used Continue losartan at 12.5 mg daily Objective - Vital Signs Vital signs: Vital Signs Temp 97.9 F 03/13/18 11:20 Pulse 77 03/13/18 12:00 Resp 18 03/13/18 11:20 BP 117/73 03/13/18 11:20 Pulse Ox 97 03/13/18 11:20 Intake & Output 03/12/18 03/13/18 03/13/18 18:59 06:59 18:59 Intake Total 222 1010 40 Output Total 800 Balance -578 1010 40 Weight 79.3 kg 82.1 kg Intake: IV 60 40 Invasive Line 1 60 40 Oral 222 950 Output: Urine 800 Other: Voiding Method Toilet Toilet # Voids 3 - Labs CBC & Chem 7: 03/13/18 06:09 03/13/18 06:09 Labs: Abnormal Lab Results - Last 24 Hours (Table) 03/12/18 03/12/18 03/13/18 Range/Units 17:08 21:05 06:09 Hgb 12.1 L (13.0-17.5) gm/dL MCHC 29.9 L (31.0-37.0) g/dL RDW 17.2 H (11.5-15.5) % Lymphocytes # 0.5 L (1.0-4.8) k/uL Carbon Dioxide (22-30) mmol/L BUN (9-20) mg/dL Glucose (74-99) mg/dL POC Glucose (mg/dL) 116 H 107 H (75-99) mg/dL 12/03/13/18 03/13/18 Range/Units 06:09 06:11 11:21 Hgb (13.0-17.5) gm/dL MCHC (31.0-37.0) g/dL RDW (11.5-15.5) % Lymphocytes # (1.0-4.8) k/uL Carbon Dioxide 31 H (22-30) mmol/L BUN 23 H (9-20) mg/dL Glucose 131 H (74-99) mg/dL POC Glucose (mg/dL) 132 H 154 H (75-99) mg/dL
--- NOTE | 2018-03-13 15:23 | PN ---
PROGRESS NOTE This is a 62-year-old male who I saw in consultation yesterday. His primary physician is Dr. Andrews Escobar. He has a history of multiple complaints including primarily shortness of breath but weakness as well. The shortness of breath had been going on for a number days, probably about a week or so. The patient has a recent history of paracentesis abdominis done by Interventional Radiology on February 25. On that visit, 3.8 L of fluid was removed from the abdomen. In addition, he has had a recent thoracentesis done and about 2 L was removed. He comes in with complaints of cough and occasional phlegm production as well as shortness of breath. His primary complaint is that his abdomen is getting more and more distended. He denies any fever or chills. There is no chest pain or chest discomfort. Current vital signs include temperature 97.9, heart rate 76, respiratory rate 18, blood pressure 117/73, mean 87, 3 L saturation 97%. Appears in no acute distress. HEENT examination is grossly unremarkable. Mucous membranes are moist. No oral lesions. Neck is supple. Full range of motion. No adenopathy. Cardiovascular examination reveals distant heart sounds. Heart rate in mid 70s. S1, S2 normal. No murmur. Lungs reveal diminished breath sounds at the right lung base. There is some dullness at the right lung base. No crackles. No wheezes. Abdomen is distended. Bowel sounds are heard. He has got an incisional hernia noted on the left side of a midline incision in the abdomen. Extremities are intact. Mild edema. Skin without rash. Neurologic examination is brief but nonfocal. LABS: Reviewed. White count 4, hemoglobin 12.1, hematocrit 40.5, platelet count 237,000. Sodium, potassium and chloride normal. CO2 of 31, BUN and creatinine were 23 and 0.86. At this time, ultrasound of abdomen and chest is still pending. Microbiologic studies are negative. Medications are reviewed. ASSESSMENT: 1. Shortness of breath, multifactorial in part related to significant abdominal ascites and right-sided pleural effusion. 2. Multiple previous paracentesis about every 2-4 weeks by Interventional Radiology. 3. Right-sided pleural effusion, status post right-sided thoracentesis by my partner January 14, 2018. 4. History of chronic liver disease. 5. Chronic obstructive pulmonary disease. 6. Pulmonary embolism. 7. History of deep venous thrombosis. 8. History of atrial fibrillation. 9. History of coronary artery disease. 10.History of laryngeal carcinoma. 11.Cerebrovascular accident. 12.Diabetes. PLAN: Await the results of the ultrasound. I likely will have Interventional Radiology consider doing a paracentesis and thoracentesis. Additional recommendations and suggestions are forthcoming. Prognosis is guarded. We will continue to follow. MMODL / IJN: [id number] /
[2018-03-13 16:37] LABS: Glucose,Whole Blood 84 mg/dL (75-99)
[2018-03-13] MEDS: INSULIN ASPART 100 UNIT/ML 1 ML 10 ML VIAL SQ SCH ×2 (17:17→19:44)
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
[2018-03-13 19:44] LABS: Glucose,Whole Blood 103 mg/dL (75-99)
[2018-03-13] MEDS: QUEtiapine 25 MG TAB PO SCH (19:47)
[2018-03-14] MEDS: HYDROcodone/APAP 10-325MG 1 EACH TAB PO SCH ×5 (05:05→21:40)
[2018-03-14 05:53] LABS: Glucose,Whole Blood 105 mg/dL (75-99)
[2018-03-14] MEDS: PANTOPRAZOLE 40 MG TABLET PO SCH (05:54)
[2018-03-14] MEDS: INSULIN ASPART 100 UNIT/ML 1 ML 10 ML VIAL SQ SCH ×4 (05:54→21:26)
[2018-03-14 06:48] LABS: Anisocytosis Slight; HGB 11.7 gm/dL (13.0-17.5); Hypochromasia Marked; MCH 25.5 pg (25.0-35.0); MCHC 28.6 g/dL (31.0-37.0); Mean Platelet Volume 7.2; Platelet Count 235 k/uL (150-450); RDW 16.9 % (11.5-15.5); WBC 4.5 k/uL (3.8-10.6)
[2018-03-14 06:55] LABS: Anion Gap 4 mmol/L; Calcium 8.4 mg/dL (8.4-10.2); Carbon Dioxide 34 mmol/L (22-30); Chloride 101 mmol/L (98-107); Glucose 98 mg/dL (74-99); Sodium 139 mmol/L (137-145)
[2018-03-14 07:11] LABS: Blood Urea Nitrogen 22 mg/dL (9-20)
[2018-03-14 08:45] LABS: Basophils # (M) 0.05 k/uL (0-0.2); Eosinophils # (M) 0.09 k/uL (0-0.7); Lymphocytes # (M) 0.54 k/uL (1.0-4.8); Neutrophils # (M) 3.33 k/uL (1.3-7.7); Neutrophils % (M) 74 %; Nucleated Red Blood Cells 0 /100 WBC (0-0); Total Cells Counted 100
[2018-03-14] MEDS: IPRATROPIUM-ALBUTEROL 3 ML NEB INHALATION SCH ×4 (08:52→21:15)
[2018-03-14] MEDS: FUROSEMIDE 10 MG/ML 4 ML VIAL IV SCH ×2 (09:25→21:39)
[2018-03-14] MEDS: LOSARTAN 25 MG TAB PO SCH (09:26)
[2018-03-14] MEDS: ENOXAPARIN 80 MG/0.8 ML SYRINGE SQ SCH ×2 (09:26→21:39)
[2018-03-14] MEDS: METOPROLOL TARTRATE 25 MG TAB PO SCH ×2 (09:26→21:39)
[2018-03-14] MEDS: ISOSORBIDE MONONITRATE ER 30 MG TAB.ER.24H PO SCH (09:26)
[2018-03-14] MEDS: metFORMIN 500 MG TAB PO SCH (09:26)
[2018-03-14] MEDS: ASPIRIN 81 MG PO SCH (09:27)
[2018-03-14 10:23] LABS: INR 1.3 (<1.2); Prothrombin Time 13.5 sec (9.0-12.0)
[2018-03-14 11:59] LABS: Glucose,Whole Blood 93 mg/dL (75-99)
--- NOTE | 2018-03-14 12:36 | P.PN ---
Subjective Progress Note Date: 03/14/18 This is a 62-year-old gentleman well known to our practice, he has history of ischemic cardiomyopathy with prior myocardial infarctions and stent placements, recurrent ascites with recurrent paracentesis, diabetes, hypertension, hyperlipidemia, prior pulmonary embolism, chronic persistent atrial fibrillation, nicotine dependence, COPD, presented to the hospital on this occasion primarily with symptoms of worsening shortness of breath. He does have mild abdominal discomfort but states is much better than his usual. Patient was seen in consultation by Dr. Couch he was initiated on IV Lasix. He states overall he's been diuresing quite well although his weight is not reflective of this. Blood pressure 105/60, heart rate in the 70s, 93 %. On room air. White blood cell count 4.5, hemoglobin 11, platelet count 235. Sodium 139, potassium 4.0, BUN 22, creatinine 0.8. Objective - Vital Signs Vital signs: Vital Signs Temp 97.8 F 03/14/18 09:00 Pulse 72 03/14/18 09:03 Resp 18 03/14/18 09:00 BP 105/66 03/14/18 09:00 Pulse Ox 93 L 03/14/18 09:00 Intake & Output 03/13/18 03/14/18 03/14/18 18:59 06:59 18:59 Intake Total 60 510 180 Output Total 600 Balance -540 510 180 Weight 82.6 kg Intake: IV 60 10 Invasive Line 1 60 10 Oral 500 180 Output: Urine 600 Other: Voiding Method Toilet Toilet # Voids 1 - Exam PHYSICAL EXAMINATION: GENERAL: 62-year-old gentleman appears frail, in no acute distress at the time of my examination. HEENT: Head is atraumatic, normocephalic. Pupils equal, round. Sclera anicteric. Conjunctiva are clear. Mucous membranes of the mouth are moist. Neck is supple. There is elevated jugular venous pressure. No carotid bruit is heard. HEART EXAMINATION: Heart S1 and S2 irregularly irregular systolic murmur is heard. CHEST EXAMINATION: Lungs reveal diminished air entry to bilateral bases. ABDOMEN: Soft, mildly distended . Bowel sounds are heard. No organomegaly noted. EXTREMITIES: 2+ peripheral pulses with no evidence of peripheral edema and no calf tenderness noted. NEUROLOGIC patient is awake, alert and oriented 3 - Labs CBC & Chem 7: 03/14/18 05:44 03/14/18 05:44 Labs: Abnormal Lab Results - Last 24 Hours (Table) 03/13/18 03/14/18 03/14/18 Range/Units 19:43 05:44 05:44 Hgb 11.7 L (13.0-17.5) gm/dL MCHC 28.6 L (31.0-37.0) g/dL RDW 16.9 H (11.5-15.5) % Lymphocytes # (Manual) 0.54 L (1.0-4.8) k/uL PT (9.0-12.0) sec INR (<1.2) Carbon Dioxide 34 H (22-30) mmol/L BUN 22 H (9-20) mg/dL POC Glucose (mg/dL) 103 H (75-99) mg/dL 03/14/18 03/14/18 Range/Units 05:52 05:54 Hgb (13.0-17.5) gm/dL MCHC (31.0-37.0) g/dL RDW (11.5-15.5) % Lymphocytes # (Manual) (1.0-4.8) k/uL PT 13.5 H (9.0-12.0) sec INR 1.3 H (<1.2) Carbon Dioxide (22-30) mmol/L BUN (9-20) mg/dL POC Glucose (mg/dL) 105 H (75-99) mg/dL Assessment and Plan Plan: #1 systolic congestive heart failure acute on chronic, associated pleural effusion #2 ischemic cardiomyopathy with prior documented ejection fraction of less than 20% by echo performed in September, moderate MR, moderate to severe TR #3 atrial fibrillation, chronic persistent #4 known history of coronary artery disease with prior myocardial infarctions and stent placements #5 diabetes #6 hyperlipidemia #7 hypertension #8 history of CVA with prior TIA #9 nicotine dependence #10 COPD Plan From cardiology's perspective, we'll recommend to continue current dose of IV Lasix. Today to monitor intake and output along with daily weights and daily lytes BUN and creatinine. DNP note has been reviewed, I agree with a documented findings and plan of care. Patient was seen and examined.
[2018-03-14 13:07] LABS: Hemoglobin A1C 6.6 % (4.0-6.0)
--- NOTE | 2018-03-14 13:57 | P.PN ---
Subjective Progress Note Date: 03/14/18 Principal diagnosis: Shortness of breath, related to abdominal ascites, right-sided pleural effusion This is a 62-year-old white male patient of Dr. Escobar who was admitted to the hospital on 03/11/2018 for shortness of breath, weakness. Patient has a recent history of paracentesis abdominis on 02/25/2018 with removal of 3.8 L of fluid. We had previously seen the patient in consultation for right-sided pleural effusion secondary to patient's recurrent ascites, and patient underwent right- sided thoracentesis by Dr. Mir on 01/14/2018 with removal of 2000 mL of pleural fluid, it was transudate in nature, cytology was negative. Ultrasound of the chest was completed, and showed 10.2 cm right pleural effusion pocket and 3.8 cm left pleural effusion pocket. Abdominal ultrasound showed a moderate amount of ascites. Patient is dyspneic especially with exertion, in no acute distress, room air pulse ox is 99%, patient is hemodynamically stable. Complaining of some hand like sensation across the lower abdomen, goes up to the right side of his chest. No cough, no congestion, lung sounds are diminished breath sounds over right lower base. Objective - Vital Signs Vital signs: Vital Signs Temp 97.8 F 03/14/18 09:00 Pulse 76 03/14/18 12:28 Resp 18 03/14/18 09:00 BP 105/66 03/14/18 09:00 Pulse Ox 93 L 03/14/18 09:00 Intake & Output 03/13/18 03/14/18 03/14/18 18:59 06:59 18:59 Intake Total 60 510 180 Output Total 600 Balance -540 510 180 Weight 82.6 kg Intake: IV 60 10 Invasive Line 1 60 10 Oral 500 180 Output: Urine 600 Other: Voiding Method Toilet Toilet # Voids 1 - Exam GENERAL EXAM: Alert, active, comfortable in no apparent distress. HEAD: Normocephalic/atraumatic. EYES: Normal reaction of pupils, equal size. Conjunctiva pink, sclera white. NOSE: Clear with pink turbinates. THROAT: No erythema or exudates. NECK: No masses, no JVD, no thyroid enlargement, no adenopathy. CHEST: No chest wall deformity. Symmetrical expansion. LUNGS: Equal air entry with diminished breath sounds at the right lower base CVS: Regular rate and rhythm, normal S1 and S2, no gallops, no murmurs, no rubs ABDOMEN: Soft, nontender. No hepatosplenomegaly, normal bowel sounds, no guarding or rigidity. EXTREMITIES: No clubbing, no edema, no cyanosis, 2+ pulses and upper and lower extremities. MUSCULOSKELETAL: Muscle strength and tone normal. SPINE: No scoliosis or deformity SKIN: No rashes CENTRAL NERVOUS SYSTEM: Alert and oriented -3. No focal deficits, tone is normal in all 4 extremities. PSYCHIATRIC: Alert and oriented -3. Appropriate affect. Intact judgment and insight. - Labs CBC & Chem 7: 03/14/18 05:44 03/14/18 05:44 Labs: Abnormal Lab Results - Last 24 Hours (Table) 03/13/18 03/13/18 03/14/18 Range/Units 08:30 19:43 05:44 Hgb 11.7 L (13.0-17.5) gm/dL MCHC 28.6 L (31.0-37.0) g/dL RDW 16.9 H (11.5-15.5) % Lymphocytes # (Manual) 0.54 L (1.0-4.8) k/uL PT (9.0-12.0) sec INR (<1.2) Carbon Dioxide (22-30) mmol/L BUN (9-20) mg/dL POC Glucose (mg/dL) 103 H (75-99) mg/dL Hemoglobin A1c 6.6 H (4.0-6.0) % 03/14/18 03/14/18 03/14/18 Range/Units 05:44 05:52 05:54 Hgb (13.0-17.5) gm/dL MCHC (31.0-37.0) g/dL RDW (11.5-15.5) % Lymphocytes # (Manual) (1.0-4.8) k/uL PT 13.5 H (9.0-12.0) sec INR 1.3 H (<1.2) Carbon Dioxide 34 H (22-30) mmol/L BUN 22 H (9-20) mg/dL POC Glucose (mg/dL) 105 H (75-99) mg/dL Hemoglobin A1c (4.0-6.0) % Assessment and Plan Plan: Assessment: #1. Shortness of breath, multifactorial, related to significant abdominal ascites and right-sided pleural effusion #2. Multiple previous paracentesis related to recurrent ascites by interventional radiology #3. Right-sided pleural effusion status post right-sided thoracentesis on 01/14 with removal of 2 L of pleural fluid which was transudate of, with negative cytology #4. Chronic liver disease #5. COPD #6. History of pulmonary embolism #7. History of deep venous thrombosis #8. History of atrial fibrillation #9. Coronary artery artery disease #10. History of laryngeal carcinoma #11. CVA/TIA #12. Diabetes mellitus Plan: Ultrasound of the abdomen and ultrasound of the right chest were reviewed, it shows a sizable right pleural effusion pocket on the right. Continue with IV Lasix, we'll obtain PT/INR, interventional radiology has been consulted for paracentesis and right-sided thoracentesis. He is in no distress. He is on room air. We'll continue with current medical treatment. 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 I performed a history & physical examination of the patient and discussed their management with my nurse practitioner, Vika Aceves. I reviewed the nurse practitioner's note and agree with the documented findings and plan of care. Lung sounds are positive for diminished breath sounds on the right lower base. The findings and the impression was discussed with the patient. I attest to the documentation by the nurse practitioner. Time with Patient: Less than 30
[2018-03-14 16:26] LABS: Glucose,Whole Blood 95 mg/dL (75-99)
[2018-03-14] MEDS ORDERED: DICYCLOMINE 20 MG TAB PO PRN (18:23)
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
[2018-03-14 21:23] LABS: Glucose,Whole Blood 103 mg/dL (75-99)
[2018-03-14] MEDS: QUEtiapine 25 MG TAB PO SCH (21:39)
[2018-03-15] MEDS: HYDROcodone/APAP 10-325MG 1 EACH TAB PO SCH ×6 (00:28→20:00)
[2018-03-15 06:44] LABS: Glucose,Whole Blood 101 mg/dL (75-99)
[2018-03-15 06:50] LABS: Anisocytosis Slight; Basophils % (A) 1 %; Eosinophils # (A) 0.1 k/uL (0-0.7); Eosinophils % (A) 2 %; HGB 12.4 gm/dL (13.0-17.5); Hypochromasia Marked; Lymphocytes # (A) 0.5 k/uL (1.0-4.8); Lymphocytes % (A) 10 %; MCH 26.8 pg (25.0-35.0); MCHC 30.3 g/dL (31.0-37.0); MCV 88.5 fL (80.0-100.0); Mean Platelet Volume 7.2; Monocytes # (A) 0.4 k/uL (0-1.0); Monocytes % (A) 8 %; Neutrophils # (A) 3.9 k/uL (1.3-7.7); Neutrophils % (A) 76 %; Platelet Count 226 k/uL (150-450); RBC 4.64 m/uL (4.30-5.90); WBC 5.1 k/uL (3.8-10.6)
[2018-03-15] MEDS: INSULIN ASPART 100 UNIT/ML 1 ML 10 ML VIAL SQ SCH ×4 (07:02→21:15)
[2018-03-15] MEDS: PANTOPRAZOLE 40 MG TABLET PO SCH (07:08)
[2018-03-15 07:15] LABS: Amylase 30 U/L (30-110); Anion Gap 8 mmol/L; Blood Urea Nitrogen 23 mg/dL (9-20); Calcium 8.5 mg/dL (8.4-10.2); Carbon Dioxide 31 mmol/L (22-30); Chloride 101 mmol/L (98-107); Glucose 94 mg/dL (74-99); Lipase 32 U/L (23-300); Potassium 3.8 mmol/L (3.5-5.1); Sodium 140 mmol/L (137-145)
[2018-03-15] MEDS: ENOXAPARIN 80 MG/0.8 ML SYRINGE SQ SCH ×2 (07:55→21:14)
[2018-03-15] MEDS: METOPROLOL TARTRATE 25 MG TAB PO SCH ×2 (08:10→21:58)
[2018-03-15] MEDS: metFORMIN 500 MG TAB PO SCH (08:10)
[2018-03-15] MEDS: FUROSEMIDE 10 MG/ML 4 ML VIAL IV SCH (08:11)
[2018-03-15] MEDS: IPRATROPIUM-ALBUTEROL 3 ML NEB INHALATION SCH ×4 (08:19→20:38)
[2018-03-15] MEDS: ASPIRIN 81 MG PO SCH (10:48)
[2018-03-15] MEDS: MORPHINE SULFATE 2 MG/ML SYRINGE IVP PRN ×2 (11:07→16:09)
[2018-03-15 11:47] LABS: Glucose,Whole Blood 85 mg/dL (75-99)
[2018-03-15] MEDS: LOSARTAN 25 MG TAB PO SCH (12:41)
[2018-03-15] MEDS: ISOSORBIDE MONONITRATE ER 30 MG TAB.ER.24H PO SCH (12:41)
--- NOTE | 2018-03-15 14:08 | P.PN ---
Subjective Progress Note Date: 03/15/18 Principal diagnosis: Shortness of breath secondary to abdominal ascites and a right-sided pleural effusion This is a 62-year-old white male patient of Dr. Escobar who was admitted to the hospital on 03/11/2018 for shortness of breath, weakness. Patient has a recent history of paracentesis abdominis on 02/25/2018 with removal of 3.8 L of fluid. We had previously seen the patient in consultation for right-sided pleural effusion secondary to patient's recurrent ascites, and patient underwent right- sided thoracentesis by Dr. Mir on 01/14/2018 with removal of 2000 mL of pleural fluid, it was transudate in nature, cytology was negative. Ultrasound of the chest was completed, and showed 10.2 cm right pleural effusion pocket and 3.8 cm left pleural effusion pocket. Abdominal ultrasound showed a moderate amount of ascites. Patient is dyspneic especially with exertion, in no acute distress, room air pulse ox is 99%, patient is hemodynamically stable. Complaining of some hand like sensation across the lower abdomen, goes up to the right side of his chest. No cough, no congestion, lung sounds are diminished breath sounds over right lower base. The patient is seen today 03/15/2018 in follow-up on the selective care unit. He is awake and alert in no acute distress. He is resting quite comfortably in bed. He denies any worsening shortness of breath, cough or congestion. He is maintaining good O2 saturation in the mid 90s on 2 L/m per nasal cannula. His been afebrile. Hemodynamically stable. White count 5.1. Hemoglobin 12.4. Platelet count 226,000. Creatinine 0.72. He remains on IV diuretics in the form of Lasix 40 mg every 12 hours. Objective - Vital Signs Vital signs: Vital Signs Temp 96.8 F L 03/15/18 10:57 Pulse 65 03/15/18 10:57 Resp 18 03/15/18 10:57 BP 98/66 03/15/18 10:57 Pulse Ox 95 03/15/18 10:57 Intake & Output 03/14/18 03/15/18 03/15/18 18:59 06:59 18:59 Intake Total 380 875 180 Balance 380 875 180 Weight 82.4 kg Intake: Oral 380 875 180 Other: Voiding Method Toilet Toilet # Voids 1 3 - Exam GENERAL EXAM: Alert, comfortable in no apparent distress. On nasal cannula. HEAD: Normocephalic/atraumatic. EYES: Normal reaction of pupils, equal size. Conjunctiva pink, sclera white. NOSE: Clear with pink turbinates. THROAT: No erythema or exudates. NECK: No masses, no JVD, no thyroid enlargement, no adenopathy. CHEST: No chest wall deformity. Symmetrical expansion. LUNGS: Equal air entry with diminished breath sounds at the right lower base CVS: Regular rate and rhythm, normal S1 and S2, no gallops, no murmurs, no rubs ABDOMEN: Distended, normal bowel sounds, no guarding or rigidity. EXTREMITIES: No clubbing, no edema, no cyanosis, 2+ pulses and upper and lower extremities. MUSCULOSKELETAL: Muscle strength and tone normal. SPINE: No scoliosis or deformity SKIN: No rashes CENTRAL NERVOUS SYSTEM: Alert and oriented -3. No focal deficits, tone is normal in all 4 extremities. PSYCHIATRIC: Alert and oriented -3. Appropriate affect. Intact judgment and insight. - Labs CBC & Chem 7: 03/15/18 05:41 03/15/18 05:41 Labs: Abnormal Lab Results - Last 24 Hours (Table) 03/14/18 03/15/18 03/15/18 Range/Units 21:21 05:41 05:41 Hgb 12.4 L (13.0-17.5) gm/dL MCHC 30.3 L (31.0-37.0) g/dL RDW 17.0 H (11.5-15.5) % Lymphocytes # 0.5 L (1.0-4.8) k/uL Carbon Dioxide 31 H (22-30) mmol/L BUN 23 H (9-20) mg/dL POC Glucose (mg/dL) 103 H (75-99) mg/dL 03/15/18 Range/Units 06:36 Hgb (13.0-17.5) gm/dL MCHC (31.0-37.0) g/dL RDW (11.5-15.5) % Lymphocytes # (1.0-4.8) k/uL Carbon Dioxide (22-30) mmol/L BUN (9-20) mg/dL POC Glucose (mg/dL) 101 H (75-99) mg/dL Assessment and Plan Assessment: Assessment: #1. Shortness of breath, multifactorial, related to significant abdominal ascites and right-sided pleural effusion #2. Multiple previous paracentesis related to recurrent ascites by interventional radiology #3. Right-sided pleural effusion status post right-sided thoracentesis on 01/14 with removal of 2 L of pleural fluid which was transudate of, with negative cytology #4. Chronic liver disease #5. COPD #6. History of pulmonary embolism #7. History of deep venous thrombosis #8. History of atrial fibrillation #9. Coronary artery artery disease #10. History of laryngeal carcinoma #11. CVA/TIA #12. Diabetes mellitus Plan: The patient was seen and evaluated by Dr. Garcia. He remains stable from the pulmonary standpoint. The plan is for IR to perform a paracentesis possibly tomorrow. He has no pulmonary complaints. Continue IV diuretics. Will continue to follow. I, the cosigning physician, performed a history & physical examination of the patient. Lungs sounds basilar crackles more so on the right. Maintaining good O2 saturations in the 90s on 2 liters per minute per nasal cannula. I discussed the assessment and plan of care with my nurse practitioner, Lorri Hoffmann. I attest to the above note as dictated by her.
--- NOTE | 2018-03-15 14:20 | P.PN ---
Subjective Patient looks comfortable he says he's still short of breath. No obvious respiratory distress resting comfortably in bed still has lower extremity edema bilaterally Afebrile 96.8F blood pressure 9806 6. His mercury pulse rate in the 60s and 70s irregular Impression Congestive heart failure with acute on chronic systolic dysfunction Persistent atrial fibrillation rate controlled now Suggest Continue" continue rate control continue heart failure medications and diuresis Switched to by mouth Lasix 40 mg twice daily and electrograms 5 mg daily and spironolactone 25 mg by mouth daily Objective - Vital Signs Vital signs: Vital Signs Temp 96.8 F L 03/15/18 10:57 Pulse 65 03/15/18 10:57 Resp 18 03/15/18 10:57 BP 98/66 03/15/18 10:57 Pulse Ox 95 03/15/18 10:57 Intake & Output 03/14/18 03/15/18 03/15/18 18:59 06:59 18:59 Intake Total 380 875 180 Balance 380 875 180 Weight 82.4 kg Intake: Oral 380 875 180 Other: Voiding Method Toilet Toilet # Voids 1 3 - Labs CBC & Chem 7: 03/15/18 05:41 03/15/18 05:41 Labs: Abnormal Lab Results - Last 24 Hours (Table) 03/14/18 03/15/18 03/15/18 Range/Units 21:21 05:41 05:41 Hgb 12.4 L (13.0-17.5) gm/dL MCHC 30.3 L (31.0-37.0) g/dL RDW 17.0 H (11.5-15.5) % Lymphocytes # 0.5 L (1.0-4.8) k/uL Carbon Dioxide 31 H (22-30) mmol/L BUN 23 H (9-20) mg/dL POC Glucose (mg/dL) 103 H (75-99) mg/dL 03/15/18 Range/Units 06:36 Hgb (13.0-17.5) gm/dL MCHC (31.0-37.0) g/dL RDW (11.5-15.5) % Lymphocytes # (1.0-4.8) k/uL Carbon Dioxide (22-30) mmol/L BUN (9-20) mg/dL POC Glucose (mg/dL) 101 H (75-99) mg/dL
[2018-03-15] MEDS: FUROSEMIDE 40 MG TAB PO SCH (16:00)
[2018-03-15 17:54] LABS: Glucose,Whole Blood 108 mg/dL (75-99)
[2018-03-15 20:53] LABS: Glucose,Whole Blood 105 mg/dL (75-99)
[2018-03-15] MEDS: QUEtiapine 25 MG TAB PO SCH (21:58)
[2018-03-16] MEDS: HYDROcodone/APAP 10-325MG 1 EACH TAB PO SCH ×6 (00:21→21:08)
[2018-03-16 05:53] LABS: Glucose,Whole Blood 119 mg/dL (75-99)
[2018-03-16 06:17] LABS: Anisocytosis Slight; Basophils % (A) 1 %; Eosinophils # (A) 0.2 k/uL (0-0.7); Eosinophils % (A) 4 %; HCT 42.7 % (39.0-53.0); HGB 12.6 gm/dL (13.0-17.5); Hypochromasia Marked; Lymphocytes # (A) 0.5 k/uL (1.0-4.8); Lymphocytes % (A) 10 %; MCHC 29.5 g/dL (31.0-37.0); MCV 88.2 fL (80.0-100.0); Mean Platelet Volume 7.1; Monocytes # (A) 0.4 k/uL (0-1.0); Monocytes % (A) 7 %; Neutrophils # (A) 3.5 k/uL (1.3-7.7); Neutrophils % (A) 74 %; Platelet Count 244 k/uL (150-450); RBC 4.84 m/uL (4.30-5.90); RDW 17.1 % (11.5-15.5); WBC 4.7 k/uL (3.8-10.6)
[2018-03-16 06:25] LABS: Anion Gap 8 mmol/L; Blood Urea Nitrogen 22 mg/dL (9-20); Calcium 8.6 mg/dL (8.4-10.2); Carbon Dioxide 32 mmol/L (22-30); Chloride 99 mmol/L (98-107); Glucose 112 mg/dL (74-99); Potassium 3.9 mmol/L (3.5-5.1); Sodium 139 mmol/L (137-145)
[2018-03-16] MEDS: INSULIN ASPART 100 UNIT/ML 1 ML 10 ML VIAL SQ SCH ×4 (06:40→21:00)
[2018-03-16] MEDS: PANTOPRAZOLE 40 MG TABLET PO SCH (07:00)
[2018-03-16] MEDS: ASPIRIN 81 MG PO SCH (07:51)
[2018-03-16] MEDS: ENOXAPARIN 80 MG/0.8 ML SYRINGE SQ SCH ×2 (07:51→19:32)
[2018-03-16] MEDS: IPRATROPIUM-ALBUTEROL 3 ML NEB INHALATION SCH ×4 (08:42→19:19)
--- NOTE | 2018-03-16 09:13 | P.PN ---
Subjective Progress Note Date: 03/16/18 Principal diagnosis: ascites 62-year-old male with a history of chronic liver disease EtOH abuse admitted with shortness of breath ascites pleural effusion. Scheduled for possible paracentesis thoracentesis today. Presently he reports mild abdominal discomfort nothing severe. Afebrile. Admission pancreatic enzymes within normal limits. Objective - Vital Signs Vital signs: Vital Signs Temp 97.5 F L 03/16/18 03:57 Pulse 72 03/16/18 08:56 Resp 18 03/16/18 03:57 BP 107/74 03/16/18 03:57 Pulse Ox 98 03/16/18 03:57 Intake & Output 03/15/18 03/16/18 03/16/18 18:59 06:59 18:59 Intake Total 590 400 Output Total 600 Balance -10 400 Weight 82.5 kg Intake: Oral 590 400 Output: Urine 600 Other: Voiding Method Toilet Toilet # Voids 2 1 - Exam General appearance: The patient is alert, oriented, in no acute distress. HET: Head is normocephalic and atraumatic. Pupils are equal and reactive. Oropharynx is clear without lesions. Neck: Supple without lymphadenopathy. Trachea midline. Heart: S1 S2. Regular rate and rhythm. Lungs: No crackles or wheezes are heard. Diminished right base. Abdomen: Soft, nontender, mildly distended with mild to moderate ascites with bowel sounds. No peritoneal signs. No palpable organomegaly or masses. Extremities: Normal skin color and turgor. No cyanosis, rash, ulceration, clubbing, or edema. Radial and pedal pulses are 2/4 bilaterally. Neurological: No focal deficits. Strength and sensation are grossly intact. - Labs CBC & Chem 7: 03/16/18 05:48 03/16/18 05:48 Labs: Abnormal Lab Results - Last 24 Hours (Table) 03/15/18 03/15/18 03/16/18 Range/Units 17:32 20:52 05:48 Hgb 12.6 L (13.0-17.5) gm/dL MCHC 29.5 L (31.0-37.0) g/dL RDW 17.1 H (11.5-15.5) % Lymphocytes # 0.5 L (1.0-4.8) k/uL Carbon Dioxide (22-30) mmol/L BUN (9-20) mg/dL Glucose (74-99) mg/dL POC Glucose (mg/dL) 108 H 105 H (75-99) mg/dL 03/16/18 03/16/18 Range/Units 05:48 05:51 Hgb (13.0-17.5) gm/dL MCHC (31.0-37.0) g/dL RDW (11.5-15.5) % Lymphocytes # (1.0-4.8) k/uL Carbon Dioxide 32 H (22-30) mmol/L BUN 22 H (9-20) mg/dL Glucose 112 H (74-99) mg/dL POC Glucose (mg/dL) 119 H (75-99) mg/dL Assessment and Plan (1) Ascites Current Visit: No Status: Acute Code(s): R18.8 - OTHER ASCITES SNOMED Code (s): 579658480 (2) Chronic liver disease Current Visit: Yes Status: Acute Code(s): K76.9 - LIVER DISEASE, UNSPECIFIED SNOMED Code(s): 525852681 (3) Chronic liver disease due to alcohol Current Visit: Yes Status: Acute Code(s): K70.9 - ALCOHOLIC LIVER DISEASE, UNSPECIFIED SNOMED Code(s): 77558358 (4) CHF exacerbation Current Visit: Yes Status: Acute Code(s): I50.9 - HEART FAILURE, UNSPECIFIED SNOMED Code(s): 59929540 (5) COPD exacerbation Current Visit: Yes Status: Acute Code(s): J44.1 - CHRONIC OBSTRUCTIVE PULMONARY DISEASE W (ACUTE) EXACERBATION SNOMED Code(s): 285391473 (6) Abdominal pain Current Visit: No Status: Acute Code(s): R10.9 - UNSPECIFIED ABDOMINAL PAIN SNOMED Code(s): 26545878 Plan: 1. Continue with Lasix and Aldactone. Possible paracentesis thoracentesis today per IR scheduling; ascitic cytology February 2018 negative. We'll continue to follow. Low-salt diet. Assessment and plan a care discussed with Dr. Craft
[2018-03-16] MEDS: metFORMIN 500 MG TAB PO SCH (10:26)
[2018-03-16] MEDS: ISOSORBIDE MONONITRATE ER 30 MG TAB.ER.24H PO SCH (10:27)
[2018-03-16] MEDS: FUROSEMIDE 40 MG TAB PO SCH ×2 (10:27→16:45)
[2018-03-16] MEDS: SPIRONOLACTONE 25 MG TAB PO SCH (10:27)
[2018-03-16] MEDS: LOSARTAN 25 MG TAB PO SCH (10:27)
[2018-03-16] MEDS: METOPROLOL TARTRATE 25 MG TAB PO SCH ×2 (10:27→21:08)
--- NOTE | 2018-03-16 10:31 | P.PN ---
Subjective Progress Note Date: 03/16/18 Principal diagnosis: Shortness of breath secondary to abdominal ascites and a right-sided pleural effusion This is a 62-year-old white male patient of Dr. Escobar who was admitted to the hospital on 03/11/2018 for shortness of breath, weakness. Patient has a recent history of paracentesis abdominis on 02/25/2018 with removal of 3.8 L of fluid. We had previously seen the patient in consultation for right-sided pleural effusion secondary to patient's recurrent ascites, and patient underwent right- sided thoracentesis by Dr. Mir on 01/14/2018 with removal of 2000 mL of pleural fluid, it was transudate in nature, cytology was negative. Ultrasound of the chest was completed, and showed 10.2 cm right pleural effusion pocket and 3.8 cm left pleural effusion pocket. Abdominal ultrasound showed a moderate amount of ascites. Patient is dyspneic especially with exertion, in no acute distress, room air pulse ox is 99%, patient is hemodynamically stable. Complaining of some hand like sensation across the lower abdomen, goes up to the right side of his chest. No cough, no congestion, lung sounds are diminished breath sounds over right lower base. The patient is seen today 03/15/2018 in follow-up on the selective care unit. He is awake and alert in no acute distress. He is resting quite comfortably in bed. He denies any worsening shortness of breath, cough or congestion. He is maintaining good O2 saturation in the mid 90s on 2 L/m per nasal cannula. His been afebrile. Hemodynamically stable. White count 5.1. Hemoglobin 12.4. Platelet count 226,000. Creatinine 0.72. He remains on IV diuretics in the form of Lasix 40 mg every 12 hours. The patient seen again today 03/16/2017 in follow-up on the selective care unit. He is currently awake and alert off ambulating in the room. He denies any worsening shortness of breath, cough or congestion is maintaining good O2 saturation the high 90s on 2 L/m per nasal cannula. He's been afebrile. Hemodynamically stable. Plan is for possible paracentesis with INR today. White count 4.7. Hemoglobin 12.6. Creatinine 0.69. Objective - Vital Signs Vital signs: Vital Signs Temp 97.5 F L 03/16/18 03:57 Pulse 72 01/02/19 08:56 Resp 18 03/16/18 03:57 BP 107/74 03/16/18 03:57 Pulse Ox 98 03/16/18 03:57 Intake & Output 03/15/18 03/16/18 03/16/18 18:59 06:59 18:59 Intake Total 590 400 Output Total 600 Balance -10 400 Weight 82.5 kg Intake: Oral 590 400 Output: Urine 600 Other: Voiding Method Toilet Toilet # Voids 2 1 - Exam GENERAL EXAM: Alert, comfortable in no apparent distress. On room air. HEAD: Normocephalic/atraumatic. EYES: Normal reaction of pupils, equal size. Conjunctiva pink, sclera white. NOSE: Clear with pink turbinates. THROAT: No erythema or exudates. NECK: No masses, no JVD, no thyroid enlargement, no adenopathy. CHEST: No chest wall deformity. Symmetrical expansion. LUNGS: Equal air entry with diminished breath sounds at the right lower base CVS: Regular rate and rhythm, normal S1 and S2, no gallops, no murmurs, no rubs ABDOMEN: Distended, normal bowel sounds, no guarding or rigidity. EXTREMITIES: No clubbing, no edema, no cyanosis, 2+ pulses and upper and lower extremities. MUSCULOSKELETAL: Muscle strength and tone normal. SPINE: No scoliosis or deformity SKIN: No rashes CENTRAL NERVOUS SYSTEM: Alert and oriented -3. No focal deficits, tone is normal in all 4 extremities. PSYCHIATRIC: Alert and oriented -3. Appropriate affect. Intact judgment and insight. - Labs CBC & Chem 7: 03/16/18 05:48 03/16/18 05:48 Labs: Abnormal Lab Results - Last 24 Hours (Table) 03/15/18 03/15/18 03/16/18 Range/Units 17:32 20:52 05:48 Hgb 12.6 L (13.0-17.5) gm/dL MCHC 29.5 L (31.0-37.0) g/dL RDW 17.1 H (11.5-15.5) % Lymphocytes # 0.5 L (1.0-4.8) k/uL Carbon Dioxide (22-30) mmol/L BUN (9-20) mg/dL Glucose (74-99) mg/dL POC Glucose (mg/dL) 108 H 105 H (75-99) mg/dL 03/16/18 03/16/18 Range/Units 05:48 05:51 Hgb (13.0-17.5) gm/dL MCHC (31.0-37.0) g/dL RDW (11.5-15.5) % Lymphocytes # (1.0-4.8) k/uL Carbon Dioxide 32 H (22-30) mmol/L BUN 22 H (9-20) mg/dL Glucose 112 H (74-99) mg/dL POC Glucose (mg/dL) 119 H (75-99) mg/dL Assessment and Plan Assessment: Assessment: #1. Shortness of breath, multifactorial, related to significant abdominal ascites and right-sided pleural effusion. Possible paracentesis today with IR. #2. Multiple previous paracentesis related to recurrent ascites by interventional radiology #3. Right-sided pleural effusion status post right-sided thoracentesis on 01/14 with removal of 2 L of pleural fluid which was transudate of, with negative cytology #4. Chronic liver disease #5. COPD #6. History of pulmonary embolism #7. History of deep venous thrombosis #8. History of atrial fibrillation #9. Coronary artery artery disease #10. History of laryngeal carcinoma #11. CVA/TIA #12. Diabetes mellitus Plan: The patient was seen and evaluated by Dr. Garcia. He remains stable from the pulmonary standpoint. The plan is for IR to perform a paracentesis today. Lovenox was held. Consult has been placed. He has no pulmonary complaints. Continue diuretics. Will continue to follow. I, the cosigning physician, performed a history & physical examination of the patient. Lungs sounds basilar crackles more so on the right. Maintaining good O2 saturations in the 90s on 2 liters per minute per nasal cannula. I discussed the assessment and plan of care with my nurse practitioner, Lorri Hoffmann. I attest to the above note as dictated by her.
[2018-03-16 12:16] LABS: Glucose,Whole Blood 132 mg/dL (75-99)
--- NOTE | 2018-03-16 12:43 | P.PN ---
Subjective Progress Note Date: 03/16/18 This is a 62-year-old gentleman well known to our practice, he has history of ischemic cardiomyopathy with prior myocardial infarctions and stent placements, recurrent ascites with recurrent paracentesis, diabetes, hypertension, hyperlipidemia, prior pulmonary embolism, chronic persistent atrial fibrillation, nicotine dependence, COPD, presented to the hospital on this occasion primarily with symptoms of worsening shortness of breath. He does have mild abdominal discomfort but states is much better than his usual. Patient was seen in consultation by Dr. Couch he was initiated on IV Lasix. He states overall he's been diuresing quite well although his weight is not reflective of this. Blood pressure 105/60, heart rate in the 70s, 93 %. On room air. White blood cell count 4.5, hemoglobin 11, platelet count 235. Sodium 139, potassium 4.0, BUN 22, creatinine 0.8. 03/16/2018 Patient was seen and examined this morning, he needs to diurese. Weight is essentially unchanged. White blood cell count 4.7, hemoglobin 12.6, platelet count 244. Sodium 139, potassium 3.9, BUN 22, creatinine 0.6. Objective - Vital Signs Vital signs: Vital Signs Temp 97.5 F L 03/16/18 03:57 Pulse 72 03/16/18 12:16 Resp 18 03/16/18 03:57 BP 107/74 03/16/18 03:57 Pulse Ox 98 03/16/18 03:57 Intake & Output 03/15/18 03/16/18 03/16/18 18:59 06:59 18:59 Intake Total 590 400 Output Total 600 Balance -10 400 Weight 82.5 kg Intake: Oral 590 400 Output: Urine 600 Other: Voiding Method Toilet Toilet # Voids 2 1 2 - Exam PHYSICAL EXAMINATION: GENERAL: 62-year-old gentleman appears frail, in no acute distress at the time of my examination. HEENT: Head is atraumatic, normocephalic. Pupils equal, round. Sclera anicteric. Conjunctiva are clear. Mucous membranes of the mouth are moist. Neck is supple. There is elevated jugular venous pressure. No carotid bruit is heard. HEART EXAMINATION: Heart S1 and S2 irregularly irregular systolic murmur is heard. CHEST EXAMINATION: Lungs reveal diminished air entry to bilateral bases. ABDOMEN: firm, distended . Bowel sounds are heard. No organomegaly noted. EXTREMITIES: 2+ peripheral pulses with no evidence of peripheral edema and no calf tenderness noted. NEUROLOGIC patient is awake, alert and oriented 3 - Labs CBC & Chem 7: 03/16/18 05:48 03/16/18 05:48 Labs: Abnormal Lab Results - Last 24 Hours (Table) 03/15/18 03/15/18 03/16/18 Range/Units 17:32 20:52 05:48 Hgb 12.6 L (13.0-17.5) gm/dL MCHC 29.5 L (31.0-37.0) g/dL RDW 17.1 H (11.5-15.5) % Lymphocytes # 0.5 L (1.0-4.8) k/uL Carbon Dioxide (22-30) mmol/L BUN (9-20) mg/dL Glucose (74-99) mg/dL POC Glucose (mg/dL) 108 H 105 H (75-99) mg/dL 03/16/18 03/16/18 03/16/18 Range/Units 05:48 05:51 11:49 Hgb (13.0-17.5) gm/dL MCHC (31.0-37.0) g/dL RDW (11.5-15.5) % Lymphocytes # (1.0-4.8) k/uL Carbon Dioxide 32 H (22-30) mmol/L BUN 22 H (9-20) mg/dL Glucose 112 H (74-99) mg/dL POC Glucose (mg/dL) 119 H 132 H (75-99) mg/dL Assessment and Plan Plan: #1 systolic congestive heart failure acute on chronic, associated pleural effusion #2 ischemic cardiomyopathy with prior documented ejection fraction of less than 20% by echo performed in September, moderate MR, moderate to severe TR #3 atrial fibrillation, chronic persistent #4 known history of coronary artery disease with prior myocardial infarctions and stent placements #5 diabetes #6 hyperlipidemia #7 hypertension #8 history of CVA with prior TIA #9 nicotine dependence #10 COPD Plan From cardiology's perspective, we'll recommend to continue current dose of PO Lasix. Undergoing paracentesis today. Discharge once cleared by primary. Follow-up appointment in the office post discharge. DNP note has been reviewed, I agree with a documented findings and plan of care. Patient was seen and examined.
--- NOTE | 2018-03-16 16:00 | US ---
Therapeutic paracentesis. DATE OF EXAM: 03/16/2018 CLINICAL HISTORY: Ascites The procedure was discussed with the patient. The risks, complications, benefits, and alternatives we re discussed and any questions were answered. Informed consent was obtained. The patient was placed s upine on the ultrasound table and prepped and draped in the usual sterile fashion. All elements of maximal barrier technique were utilized. Under ultrasound guidance, access into the right lower quadrant was obtained, via the paracentesis catheter system and direct ultrasound guidanc e. Approximately 3.6 liters of straw-colored fluid was removed. The patient was stable throughout the pr ocedure and remained stable upon discharge from Department of Radiology. IMPRESSION: Successful therapeutic paracentesis under ultrasound guidance.
[2018-03-16] MEDS: MORPHINE SULFATE 2 MG/ML SYRINGE IVP PRN ×2 (16:45→22:40)
[2018-03-16 17:13] LABS: Glucose,Whole Blood 84 mg/dL (75-99)
[2018-03-16 17:17] LABS: Appearance,BF Clear; Color,BF Yellow; Nucleated Cells, Body Fluid 8 /uL; RBC, Body Fluid 61 /uL
[2018-03-16 20:48] LABS: Glucose,Whole Blood 136 mg/dL (75-99)
[2018-03-16] MEDS: QUEtiapine 25 MG TAB PO SCH (21:08)
--- NOTE | 2018-03-16 21:12 | P.PN ---
Subjective Progress Note Date: 03/14/18 Progress note being dictated for Dr. Pascal Interval history: This a 62-year-old gentleman admitted with acute CHF exacerbation, COPD exacerbation, right pleural effusion, ascites, ischemic cardiomyopathy and multiple other medical issues. Evaluated by GI, cardiology and pulmonary with recommendations noted. Paracentesis and thoracentesis being discussed. Diuresing on Lasix IV push, reporting good output ;24-hour I&O reflecting a positive balance, weight increased 0.5 kg., shortness of breath, worsened with minimal exertion. Maintaining O2 sats in the high 90s on room air. Complains of bilateral lower quadrant abdominal pain. Objective - Vital Signs Vital signs: Vital Signs Temp 96.3 F L 03/14/18 15:22 Pulse 69 03/14/18 15:22 Resp 20 03/14/18 15:22 BP 99/50 03/14/18 15:22 Pulse Ox 97 03/14/18 15:22 Intake & Output 03/14/18 03/14/18 03/15/18 06:59 18:59 06:59 Intake Total 510 380 Balance 510 380 Weight 82.6 kg Intake: IV 10 Invasive Line 1 10 Oral 500 380 Other: Voiding Method Toilet # Voids 1 1 - Exam PHYSICAL EXAM: VITAL SIGNS: As above GENERAL: Lying in bed, no acute distress, mild increased respiratory effort HEENT: Conjunctivae normal. Oral mucosa moist NECK: Minimal Root JVD. No thyroid enlargement. No LNs CARDIOVASCULAR: S1, S2 muffled. Irregular, positive systolic murmur RESPIRATION: Breath sounds diminished in the bases, more so on the right side. No rhonchi or crackles. ABDOMEN: Soft, mild diffuse distention . Positive ascites .Bowel sounds heard. No guarding. LEGS: Mild edema PSYCHIATRY: Alert and oriented -3, mood and affect normal. NERVOUS SYSTEM: Cranial N 2-12 grossly normal. Moves all 4 limbs. Diffuse weakness No focal deficits. Skin: no ulcer, no rash - Labs CBC & Chem 7: 03/16/18 05:48 03/16/18 05:48 Labs: Abnormal Lab Results - Last 24 Hours (Table) 03/13/18 03/13/18 03/14/18 Range/Units 08:30 19:43 05:44 Hgb 11.7 L (13.0-17.5) gm/dL MCHC 28.6 L (31.0-37.0) g/dL RDW 16.9 H (11.5-15.5) % Lymphocytes # (Manual) 0.54 L (1.0-4.8) k/uL PT (9.0-12.0) sec INR (<1.2) Carbon Dioxide (22-30) mmol/L BUN (9-20) mg/dL POC Glucose (mg/dL) 103 H (75-99) mg/dL Hemoglobin A1c 6.6 H (4.0-6.0) % 03/14/18 03/14/18 03/14/18 Range/Units 05:44 05:52 05:54 Hgb (13.0-17.5) gm/dL MCHC (31.0-37.0) g/dL RDW (11.5-15.5) % Lymphocytes # (Manual) (1.0-4.8) k/uL PT 13.5 H (9.0-12.0) sec INR 1.3 H (<1.2) Carbon Dioxide 34 H (22-30) mmol/L BUN 22 H (9-20) mg/dL POC Glucose (mg/dL) 105 H (75-99) mg/dL Hemoglobin A1c (4.0-6.0) % Assessment and Plan Assessment: -Shortness of breath related to Acute on chronic CHF exacerbation, systolic dysfunction, EF 20-25%, ischemic cardiomyopathy, pleural effusions. -Possible Acute COPD exacerbation -Right pleural effusion -Recurrent Ascites, history of liver disease with multiple paracentesis -Chronic persistent Atrial fibrillation -History of CVA, TIA Plan: Continue on current medication regime ,monitoring and symptomatic treatment. Continue diuresing on Lasix IV push with Strict I&O's. Interventional radiology consulted for both right-sided thoracentesis and paracentesis. Given abdominal pain that has been present over the last few weeks, will do both therapeutic and diagnostic paracentesis. Mild shortness of breath, duo nebs and IV steroids added to med regime. Follow closely with cardiology and pulmonary. Gnosis guarded given multiple complex medical issues. Further recommendations to follow. The impression and plan of care has been dictated as directed. : I performed a history and examination of this patient, discussed the same with the dictator. I agree with the dictator's note ,documented as a scribe. Any additional findings or plans will be noted.
--- NOTE | 2018-03-16 21:21 | P.PN ---
Subjective Progress Note Date: 03/15/18 Progress note being dictated for Dr. Pascal Interval history: This a 62-year-old gentleman admitted with acute CHF exacerbation, COPD exacerbation, right pleural effusion, ascites, ischemic cardiomyopathy and multiple other medical issues. Evaluated by GI, cardiology and pulmonary with recommendations noted. Paracentesis and thoracentesis being discussed. Diuresing on Lasix IV push, reporting good output ;24-hour I&O reflecting a positive balance, weight increased 0.5 kg., shortness of breath, worsened with minimal exertion. Maintaining O2 sats in the high 90s on room air. Complains of bilateral lower quadrant abdominal pain. 03/15/18 . Cozaar added yesterday to med regime, currently systolic blood pressure in the 90s. Telemetry reporting controlled atrial fibrillation. Continues on Lasix IV push reflecting a mild -24 hour I&O output, mild weight decrease. Creatinine 0.72. Scheduled for paracentesis tomorrow with interventional radiology. Complains of right upper and lower quadrant abdominal pain. Denies any chest pain, palpitations or increasing shortness of breath. Afebrile. Objective - Vital Signs Vital signs: Vital Signs Temp 96.8 F L 03/15/18 10:57 Pulse 72 03/15/18 20:48 Resp 18 03/15/18 15:58 BP 122/83 03/15/18 15:58 Pulse Ox 97 03/15/18 16:02 Intake & Output 03/15/18 03/15/18 03/16/18 06:59 18:59 06:59 Intake Total 875 590 Output Total 600 Balance 875 -10 Weight 82.4 kg Intake: Oral 875 590 Output: Urine 600 Other: Voiding Method Toilet Toilet # Voids 3 2 - Exam PHYSICAL EXAM: VITAL SIGNS: As above GENERAL: Sitting up in bed, no acute distress, HEENT: Conjunctivae normal. Oral mucosa moist NECK: Mild Root JVD. No thyroid enlargement. No LNs CARDIOVASCULAR: S1, S2 muffled. Irregular, positive systolic murmur RESPIRATION: Breath sounds diminished in the bases, more so on the right side. No rhonchi or crackles. ABDOMEN: Soft, mild diffuse distention . Positive ascites .Bowel sounds heard. No guarding. LEGS: Mild edema PSYCHIATRY: Alert and oriented -3, mood and affect normal. NERVOUS SYSTEM: Cranial N 2-12 grossly normal. Moves all 4 limbs. Diffuse weakness No focal deficits. Skin: no ulcer, no rash - Labs CBC & Chem 7: 03/16/18 05:48 03/16/18 05:48 Labs: Abnormal Lab Results - Last 24 Hours (Table) 03/15/18 03/15/18 03/15/18 Range/Units 05:41 05:41 06:36 Hgb 12.4 L (13.0-17.5) gm/dL MCHC 30.3 L (31.0-37.0) g/dL RDW 17.0 H (11.5-15.5) % Lymphocytes # 0.5 L (1.0-4.8) k/uL Carbon Dioxide 31 H (22-30) mmol/L BUN 23 H (9-20) mg/dL POC Glucose (mg/dL) 101 H (75-99) mg/dL 03/15/18 03/15/18 Range/Units 17:32 20:52 Hgb (13.0-17.5) gm/dL MCHC (31.0-37.0) g/dL RDW (11.5-15.5) % Lymphocytes # (1.0-4.8) k/uL Carbon Dioxide (22-30) mmol/L BUN (9-20) mg/dL POC Glucose (mg/dL) 108 H 105 H (75-99) mg/dL Assessment and Plan Assessment: -Shortness of breath related to Acute on chronic CHF exacerbation, systolic dysfunction, EF 20-25%, ischemic cardiomyopathy, pleural effusions. -Possible Acute COPD exacerbation -Right pleural effusion -Recurrent Ascites, history of liver disease with multiple paracentesis -Chronic persistent Atrial fibrillation -History of CVA, TIA Plan: Continue on current medication regime ,monitoring and symptomatic treatment. Continue diuresing on Lasix, now converted to oral as per cardiology.Right-sided thoracentesis with interventional radiology scheduled for tomorrow. Maintain nebulized bronchodilators, steroids. Further recommendations to follow. The impression and plan of care has been dictated as directed. : I performed a history and examination of this patient, discussed the same with the dictator. I agree with the dictator's note ,documented as a scribe. Any additional findings or plans will be noted.
--- NOTE | 2018-03-16 21:26 | P.PN ---
Subjective Progress Note Date: 03/16/18 Progress note being dictated for Dr. Pascal Interval history: This a 62-year-old gentleman admitted with acute CHF exacerbation, COPD exacerbation, right pleural effusion, ascites, ischemic cardiomyopathy and multiple other medical issues. Evaluated by GI, cardiology and pulmonary with recommendations noted. Paracentesis and thoracentesis being discussed. Diuresing on Lasix IV push, reporting good output ;24-hour I&O reflecting a positive balance, weight increased 0.5 kg., shortness of breath, worsened with minimal exertion. Maintaining O2 sats in the high 90s on room air. Complains of bilateral lower quadrant abdominal pain. 03/15/18 . Cozaar added yesterday to med regime, currently systolic blood pressure in the 90s. Telemetry reporting controlled atrial fibrillation. Continues on Lasix IV push reflecting a mild -24 hour I&O output, mild weight decrease. Creatinine 0.72. Scheduled for paracentesis tomorrow with interventional radiology. Complains of right upper and lower quadrant abdominal pain. Denies any chest pain, palpitations or increasing shortness of breath. Afebrile. 03/16/2018 . Complains of right upper quadrant abdominal pain. Scheduled for paracentesis today with interventional radiology. Pancreatic enzymes normal. Denies chest pain, palpitations or increasing shortness of breath. Afebrile. Objective - Vital Signs Vital signs: Vital Signs Temp 97.2 F L 03/16/18 20:00 Pulse 76 03/16/18 20:00 Resp 20 03/16/18 20:00 BP 120/81 03/16/18 20:00 Pulse Ox 99 03/16/18 20:00 Intake & Output 03/16/18 03/16/18 03/17/18 06:59 18:59 06:59 Intake Total 400 860 Balance 400 860 Weight 82.5 kg Intake: Oral 400 860 Other: Voiding Method Toilet # Voids 1 2 - Exam PHYSICAL EXAM: VITAL SIGNS: As above GENERAL: Sitting up in bed, no acute distress, HEENT: Conjunctivae normal. Oral mucosa moist NECK: no JVD. No thyroid enlargement. No LNs CARDIOVASCULAR: S1, S2 muffled. Irregular, positive systolic murmur RESPIRATION: Breath sounds diminished in the bases, more so on the right side. No rhonchi or crackles. ABDOMEN: Soft, nontender, mild diffuse distention . Positive ascites .Bowel sounds heard. No guarding. LEGS: Mild edema PSYCHIATRY: Alert and oriented -3, mood and affect normal. NERVOUS SYSTEM: Cranial N 2-12 grossly normal. Moves all 4 limbs. Diffuse weakness No focal deficits. Skin: no ulcer, no rash - Labs CBC & Chem 7: 03/16/18 05:48 03/16/18 05:48 Labs: Abnormal Lab Results - Last 24 Hours (Table) 03/16/18 03/16/18 03/16/18 Range/Units 05:48 05:48 05:51 Hgb 12.6 L (13.0-17.5) gm/dL MCHC 29.5 L (31.0-37.0) g/dL RDW 17.1 H (11.5-15.5) % Lymphocytes # 0.5 L (1.0-4.8) k/uL Carbon Dioxide 32 H (22-30) mmol/L BUN 22 H (9-20) mg/dL Glucose 112 H (74-99) mg/dL POC Glucose (mg/dL) 119 H (75-99) mg/dL 03/16/18 03/16/18 Range/Units 11:49 20:47 Hgb (13.0-17.5) gm/dL MCHC (31.0-37.0) g/dL RDW (11.5-15.5) % Lymphocytes # (1.0-4.8) k/uL Carbon Dioxide (22-30) mmol/L BUN (9-20) mg/dL Glucose (74-99) mg/dL POC Glucose (mg/dL) 132 H 136 H (75-99) mg/dL Assessment and Plan Assessment: -Shortness of breath related to Acute on chronic CHF exacerbation, systolic dysfunction, EF 20-25%, ischemic cardiomyopathy, pleural effusions. -Possible Acute COPD exacerbation -Right pleural effusion -Recurrent Ascites, history of liver disease with multiple paracentesis -Chronic persistent Atrial fibrillation -History of CVA, TIA Plan: Continue on current medication regime , oral Lasix, Aldactone ,monitoring and symptomatic treatment. Lovenox held, Paracentesis today. Potential thoracentesis tomorrow. Maintain nebulized bronchodilators, steroids. Further recommendations to follow. The impression and plan of care has been dictated as directed. : I performed a history and examination of this patient, discussed the same with the dictator. I agree with the dictator's note ,documented as a scribe. Any additional findings or plans will be noted.
[2018-03-17] MEDS: HYDROcodone/APAP 10-325MG 1 EACH TAB PO SCH ×5 (04:25→16:21)
[2018-03-17 05:08] VITALS: TEMP 96
[2018-03-17 06:43] LABS: Glucose,Whole Blood 122 mg/dL (75-99)
[2018-03-17] MEDS: INSULIN ASPART 100 UNIT/ML 1 ML 10 ML VIAL SQ SCH ×2 (06:45→12:03)
[2018-03-17] MEDS: PANTOPRAZOLE 40 MG TABLET PO SCH (06:50)
[2018-03-17] MEDS: IPRATROPIUM-ALBUTEROL 3 ML NEB INHALATION SCH ×3 (06:55→16:09)
[2018-03-17 07:41] LABS: Anisocytosis Slight; Basophils % (A) 1 %; Eosinophils # (A) 0.1 k/uL (0-0.7); Eosinophils % (A) 3 %; HCT 41.9 % (39.0-53.0); HGB 12.3 gm/dL (13.0-17.5); Hypochromasia Marked; Lymphocytes # (A) 0.5 k/uL (1.0-4.8); Lymphocytes % (A) 11 %; MCH 26.1 pg (25.0-35.0); MCHC 29.3 g/dL (31.0-37.0); MCV 88.8 fL (80.0-100.0); Mean Platelet Volume 7.2; Monocytes # (A) 0.4 k/uL (0-1.0); Monocytes % (A) 9 %; Neutrophils # (A) 3.5 k/uL (1.3-7.7); Neutrophils % (A) 74 %; Platelet Count 242 k/uL (150-450); RBC 4.72 m/uL (4.30-5.90); RDW 17.1 % (11.5-15.5); WBC 4.8 k/uL (3.8-10.6)
[2018-03-17 07:43] LABS: INR 1.2 (<1.2); Prothrombin Time 12.3 sec (9.0-12.0)
[2018-03-17 07:54] LABS: Anion Gap 7 mmol/L; Blood Urea Nitrogen 19 mg/dL (9-20); Calcium 8.4 mg/dL (8.4-10.2); Carbon Dioxide 36 mmol/L (22-30); Chloride 98 mmol/L (98-107); Glucose 125 mg/dL (74-99); Potassium 3.6 mmol/L (3.5-5.1); Sodium 141 mmol/L (137-145)
[2018-03-17] MEDS: metFORMIN 500 MG TAB PO SCH (08:23)
[2018-03-17] MEDS: SPIRONOLACTONE 25 MG TAB PO SCH (08:23)
[2018-03-17] MEDS: METOPROLOL TARTRATE 25 MG TAB PO SCH (08:23)
[2018-03-17] MEDS: FUROSEMIDE 40 MG TAB PO SCH ×2 (08:23→16:21)
[2018-03-17] MEDS: ISOSORBIDE MONONITRATE ER 30 MG TAB.ER.24H PO SCH (08:33)
[2018-03-17] MEDS: ASPIRIN 81 MG PO SCH (08:33)
[2018-03-17] MEDS: LOSARTAN 25 MG TAB PO SCH (08:33)
[2018-03-17] MEDS: ENOXAPARIN 80 MG/0.8 ML SYRINGE SQ SCH (08:33)
--- NOTE | 2018-03-17 09:27 | XR ---
EXAMINATION TYPE: XR chest 1V portable DATE OF EXAM: 03/17/2018 COMPARISON: 03/03/2018 HISTORY: Abnormal x-ray TECHNIQUE: Single frontal view of the chest is obtained. FINDINGS: There is cardiomegaly with calcified lymph node in the left AP window. Atherosclerotic christopher nge aorta. Postsurgical change overlying the cervical spine. Right-sided consolidation and pleural ef fusion is stable. Subsegmental consolidation left lung base with tiny left effusion. IMPRESSION: 1. Right-sided consolidation and pleural effusion. 2. Left lower lobe atelectasis and tiny effusion.
--- NOTE | 2018-03-17 10:55 | XR ---
EXAMINATION TYPE: XR chest 1V portable DATE OF EXAM: 03/17/2018 COMPARISON: 03/17/2018 HISTORY: Post right thoracentesis TECHNIQUE: Single frontal view of the chest is obtained. FINDINGS: There is interval improvement in the right-sided pleural effusion. Postsurgical change ove rlying the cervical spine. There is left basilar consolidation small effusion. No pneumothorax. Arthr opathy of the shoulders. Calcific tendinosis involving the left shoulder suspected. Heart is enlarged . Cannot exclude a degree of mild underlying venous congestion. IMPRESSION: 1. No pneumothorax post thoracentesis.
--- NOTE | 2018-03-17 11:15 | P.PN ---
Subjective Progress Note Date: 03/17/18 Principal diagnosis: Shortness of breath secondary to abdominal ascites and a right-sided pleural effusion This is a 62-year-old white male patient of Dr. Escobar who was admitted to the hospital on 03/11/2018 for shortness of breath, weakness. Patient has a recent history of paracentesis abdominis on 02/25/2018 with removal of 3.8 L of fluid. We had previously seen the patient in consultation for right-sided pleural effusion secondary to patient's recurrent ascites, and patient underwent right- sided thoracentesis by Dr. Mir on 01/14/2018 with removal of 2000 mL of pleural fluid, it was transudate in nature, cytology was negative. Ultrasound of the chest was completed, and showed 10.2 cm right pleural effusion pocket and 3.8 cm left pleural effusion pocket. Abdominal ultrasound showed a moderate amount of ascites. Patient is dyspneic especially with exertion, in no acute distress, room air pulse ox is 99%, patient is hemodynamically stable. Complaining of some hand like sensation across the lower abdomen, goes up to the right side of his chest. No cough, no congestion, lung sounds are diminished breath sounds over right lower base. The patient is seen today 03/15/2018 in follow-up on the selective care unit. He is awake and alert in no acute distress. He is resting quite comfortably in bed. He denies any worsening shortness of breath, cough or congestion. He is maintaining good O2 saturation in the mid 90s on 2 L/m per nasal cannula. His been afebrile. Hemodynamically stable. White count 5.1. Hemoglobin 12.4. Platelet count 226,000. Creatinine 0.72. He remains on IV diuretics in the form of Lasix 40 mg every 12 hours. The patient seen again today 03/16/2017 in follow-up on the selective care unit. He is currently awake and alert off ambulating in the room. He denies any worsening shortness of breath, cough or congestion is maintaining good O2 saturation the high 90s on 2 L/m per nasal cannula. He's been afebrile. Hemodynamically stable. Plan is for possible paracentesis with INR today. White count 4.7. Hemoglobin 12.6. Creatinine 0.69. The patient is seen again today 03/17/2017 in follow-up on the selective care unit. He is currently resting comfortably in bed. He is awake and alert in no acute distress. He did undergo a paracentesis yesterday with 3.6 L of straw- colored fluid removed. Pathology and fluid analysis pending. He has also undergone a right-sided thoracentesis today with 1.5 L of yellow fluid removed, fluid analysis and pathology pending. He is maintaining good O2 saturations up to the high 90s on 2 L/m per nasal cannula. White count 4.8. Hemoglobin 12.3. INR 1.2. Creatinine 0.73. Objective - Vital Signs Vital signs: Vital Signs Temp 96 F L 03/17/18 04:00 Pulse 81 03/17/18 10:21 Resp 14 03/17/18 10:21 BP 105/62 03/17/18 10:21 Pulse Ox 97 03/17/18 10:21 Intake & Output 03/16/18 03/17/18 03/17/18 18:59 06:59 18:59 Intake Total 860 500 300 Balance 860 500 300 Weight 77.6 kg Intake: Oral 860 500 300 Other: Voiding Method Toilet # Voids 2 2 - Exam GENERAL EXAM: Frail, cachectic. Alert, comfortable in no apparent distress. On room air. HEAD: Normocephalic/atraumatic. EYES: Normal reaction of pupils, equal size. Conjunctiva pink, sclera white. NOSE: Clear with pink turbinates. THROAT: No erythema or exudates. NECK: No masses, no JVD, no thyroid enlargement, no adenopathy. CHEST: No chest wall deformity. Symmetrical expansion. LUNGS: Equal air entry with diminished breath sounds at the right lower base CVS: Regular rate and rhythm, normal S1 and S2, no gallops, no murmurs, no rubs ABDOMEN: Distended, normal bowel sounds, no guarding or rigidity. EXTREMITIES: No clubbing, no edema, no cyanosis, 2+ pulses and upper and lower extremities. MUSCULOSKELETAL: Muscle strength and tone normal. SPINE: No scoliosis or deformity SKIN: No rashes CENTRAL NERVOUS SYSTEM: Alert and oriented -3. No focal deficits, tone is normal in all 4 extremities. PSYCHIATRIC: Alert and oriented -3. Appropriate affect. Intact judgment and insight. - Labs CBC & Chem 7: 03/17/18 07:04 03/17/18 07:04 Labs: Abnormal Lab Results - Last 24 Hours (Table) 03/16/18 03/16/18 03/17/18 Range/Units 11:49 20:47 06:42 Hgb (13.0-17.5) gm/dL MCHC (31.0-37.0) g/dL RDW (11.5-15.5) % Lymphocytes # (1.0-4.8) k/uL PT (9.0-12.0) sec INR (<1.2) Carbon Dioxide (22-30) mmol/L Glucose (74-99) mg/dL POC Glucose (mg/dL) 132 H 136 H 122 H (75-99) mg/dL 03/17/18 03/17/18 03/17/18 Range/Units 07:04 07:04 07:04 Hgb 12.3 L (13.0-17.5) gm/dL MCHC 29.3 L (31.0-37.0) g/dL RDW 17.1 H (11.5-15.5) % Lymphocytes # 0.5 L (1.0-4.8) k/uL PT 12.3 H (9.0-12.0) sec INR 1.2 H (<1.2) Carbon Dioxide 36 H (22-30) mmol/L Glucose 125 H (74-99) mg/dL POC Glucose (mg/dL) (75-99) mg/dL Microbiology - Last 24 Hours (Table) 03/16/18 14:25 Gram Stain - Preliminary Ascites Fluid Body Fluid Culture - Preliminary 03/16/18 14:15 Anaerobic Culture - Preliminary Peritoneal Fluid Assessment and Plan Assessment: Assessment: #1. Shortness of breath, multifactorial, related to significant abdominal ascites and right-sided pleural effusion. Status post right-sided thoracentesis today with 1.5 L removed. On room air. #2. Multiple previous paracentesis related to recurrent ascites by interventional radiology. Status post paracentesis yesterday 03/16/2018 with 3.6 L removed. #3. Right-sided pleural effusion status post right-sided thoracentesis on 01/14 with removal of 2 L of pleural fluid which was transudate of, with negative cytology #4. Chronic liver disease #5. COPD #6. History of pulmonary embolism #7. History of deep venous thrombosis #8. History of atrial fibrillation #9. Coronary artery artery disease #10. History of laryngeal carcinoma #11. CVA/TIA #12. Diabetes mellitus Plan: The patient was seen and evaluated by Dr. Garcia. The patient is now status post paracentesis yesterday and thoracentesis on the right today. He is maintaining good O2 saturations in the high 90s on room air. He is cleared for discharge from the pulmonary standpoint. He has no pulmonary complaints. He did follow-up in our office in 1-2 weeks' time. We'll repeat a chest x-ray then. I, the cosigning physician, performed a history & physical examination of the patient. Lungs sounds basilar crackles more so on the right. Maintaining good O2 saturations in the 90s on room air. I discussed the assessment and plan of care with my nurse practitioner, Lorri Hoffmann. I attest to the above note as dictated by her.
--- NOTE | 2018-03-17 11:31 | US ---
Ultrasound-guided therapeutic and diagnostic thoracentesis DATE OF EXAM: 03/17/2018 CLINICAL HISTORY: Pleural effusion The procedure was discussed with the patient. The risks, complications, benefits, and alternatives we re discussed and any questions were answered. Informed consent was obtained. The patient was placed supine on the ultrasound table and prepped and draped in the usual sterile fas hion. All elements of maximal barrier and sterile technique were utilized. Under ultrasound guidance, access into the pleural space was obtained, via the thoracentesis catheter system and direct ultrasound guidance. Ap proximately 1.5 liters of serous fluid was removed. The patient was stable throughout the procedure and remained stable upon discharge from Department of Radiology. IMPRESSION: 1. Successful therapeutic and diagnostic thoracentesis under ultrasound guidance.
[2018-03-17 11:51] LABS: Total Protein 6.6 g/dL (6.3-8.2)
[2018-03-17 12:13] LABS: Glucose,Whole Blood 83 mg/dL (75-99)
--- NOTE | 2018-03-17 13:19 | P.PN ---
Subjective Progress Note Date: 03/17/18 Principal diagnosis: ascites 62-year-old male with a history of chronic liver disease EtOH abuse admitted with shortness of breath ascites pleural effusion. Status post paracentesis yesterday 3.6 L removed cytology cultures pending. Status post thoracentesis today 1.5 L removed. Patient reports generalized abdominal tenderness across the umbilicus with new development of mild erythema/warmth. Afebrile. Objective - Vital Signs Vital signs: Vital Signs Temp 96 F L 03/17/18 04:00 Pulse 71 03/17/18 12:00 Resp 16 03/17/18 12:00 BP 110/62 03/17/18 12:00 Pulse Ox 99 03/17/18 12:00 Intake & Output 03/16/18 03/17/18 03/17/18 18:59 06:59 18:59 Intake Total 860 500 300 Balance 860 500 300 Weight 77.6 kg Intake: Oral 860 500 300 Other: Voiding Method Toilet # Voids 2 2 - Exam General appearance: The patient is alert, oriented, in no acute distress. HET: Head is normocephalic and atraumatic. Pupils are equal and reactive. Oropharynx is clear without lesions. Neck: Supple without lymphadenopathy. Trachea midline. Heart: S1 S2. Regular rate and rhythm. Lungs: No crackles or wheezes are heard. Diminished right base. Abdomen: Soft, mild tenderness across the umbilicus with mild erythema or warmth noted blanching minimal ascites with bowel sounds. No evidence of bleeding hematoma or ecchymosis. No peritoneal signs. No palpable organomegaly or masses. Extremities: Normal skin color and turgor. No cyanosis, rash, ulceration, clubbing, or edema. Radial and pedal pulses are 2/4 bilaterally. Neurological: No focal deficits. Strength and sensation are grossly intact. - Labs CBC & Chem 7: 03/17/18 07:04 03/17/18 07:04 Labs: Abnormal Lab Results - Last 24 Hours (Table) 03/16/18 03/17/18 03/17/18 Range/Units 20:47 06:42 07:04 Hgb 12.3 L (13.0-17.5) gm/dL MCHC 29.3 L (31.0-37.0) g/dL RDW 17.1 H (11.5-15.5) % Lymphocytes # 0.5 L (1.0-4.8) k/uL PT (9.0-12.0) sec INR (<1.2) Carbon Dioxide (22-30) mmol/L Glucose (74-99) mg/dL POC Glucose (mg/dL) 136 H 122 H (75-99) mg/dL 03/17/18 03/17/18 Range/Units 07:04 07:04 Hgb (13.0-17.5) gm/dL MCHC (31.0-37.0) g/dL RDW (11.5-15.5) % Lymphocytes # (1.0-4.8) k/uL PT 12.3 H (9.0-12.0) sec INR 1.2 H (<1.2) Carbon Dioxide 36 H (22-30) mmol/L Glucose 125 H (74-99) mg/dL POC Glucose (mg/dL) (75-99) mg/dL Microbiology - Last 24 Hours (Table) 03/16/18 14:25 Gram Stain - Preliminary Ascites Fluid Body Fluid Culture - Preliminary 03/16/18 14:15 Anaerobic Culture - Preliminary Peritoneal Fluid Assessment and Plan (1) Ascites Current Visit: No Status: Acute Code(s): R18.8 - OTHER ASCITES SNOMED Code (s): 255844465 (2) Chronic liver disease Current Visit: Yes Status: Acute Code(s): K76.9 - LIVER DISEASE, UNSPECIFIED SNOMED Code(s): 137723540 (3) Chronic liver disease due to alcohol Current Visit: Yes Status: Acute Code(s): K70.9 - ALCOHOLIC LIVER DISEASE, UNSPECIFIED SNOMED Code(s): 11485093 (4) CHF exacerbation Current Visit: Yes Status: Acute Code(s): I50.9 - HEART FAILURE, UNSPECIFIED SNOMED Code(s): 90409539 (5) COPD exacerbation Current Visit: Yes Status: Acute Code(s): J44.1 - CHRONIC OBSTRUCTIVE PULMONARY DISEASE W (ACUTE) EXACERBATION SNOMED Code(s): 586780117 (6) Abdominal pain Current Visit: No Status: Acute Code(s): R10.9 - UNSPECIFIED ABDOMINAL PAIN SNOMED Code(s): 33474983 (7) Abdominal wall cellulitis Current Visit: Yes Status: Acute Code(s): L03.311 - CELLULITIS OF ABDOMINAL WALL SNOMED Code(s): 50754951 Plan: 1. Medical service was updated with physical exam findings of the abdomen status post paracentesis thoracentesis. Continue with Lasix and Aldactone. Serology cytology ascitic cultures pending. Will continue to follow. Low-salt diet. Assessment and plan a care discussed with Dr. Craft
[2018-03-17] MEDS: MORPHINE SULFATE 2 MG/ML SYRINGE IVP PRN (13:20)
[2018-03-17 14:05] LABS: Appearance,BF Hazy; Color,BF Yellow; Nucleated Cells, Body Fluid 37 /uL; RBC, Body Fluid 808 /uL
[2018-03-17 14:08] VITALS: BMI 26.8
[2018-03-17 14:17] LABS: Mononuclear WBC,Body Fluid 45 %; Polynuclear WBC,Body Fluid 55 %; Total Cells Counted,Body Fluid 100
[2018-03-17 15:15] VITALS: BP 108/62; RESP 18
[2018-03-17 16:19] VITALS: PULSE 80
[2018-03-17 16:53] LABS: Glucose,Whole Blood 120 mg/dL (75-99)
--- NOTE | 2018-03-17 17:15 | DS ---
DISCHARGE SUMMARY DATE OF SERVICE: 03/17/2018 FINAL DIAGNOSES: 1. Congestive heart failure, acute exacerbation, with acute on chronic systolic dysfunction, ejection fraction 20% to 25%, with possible ischemic cardiomyopathy. 2. Chronic obstructive pulmonary disease, acute exacerbation. 3. Right pleural effusion, status post thoracocentesis. 4. Recurrent ascites, history of liver disease with multiple paracenteses. 5. Chronic persistent atrial fibrillation. 6. History of cerebrovascular accident, transient ischemic attack. 7. Chronic pain syndrome. DISCHARGE DISPOSITION: The patient will be discharged in stable condition with guarded prognosis. HISTORY OF PRESENT ILLNESS: This 62-year-old gentleman with a past medical history of multiple medical problems was admitted with shortness of breath, CHF, acute exacerbation. Patient also had pleural effusion and ascites. Ascites was tapped by Interventional Radiology. The patient was followed by Dr. Garcia. The patient improved significantly. The patient is asked to follow up with his primary physician, Dr. Diane Schultz, in the outpatient setting. On exam, vital are stable. CARDIOVASCULAR SYSTEM: S1, S2 muffled. ABDOMEN: Soft. NERVOUS SYSTEM: No focal deficit. Labs show WBC 4.8, hemoglobin 12.3, INR 1.2. DISCHARGE ADVICE AND MEDICATIONS: 1. Diet is cardiac, no added salt. 2. Fluid restriction 1400 mL per 24 hours. 3. Activity limited until followup. 4. Follow up with Dr. Diane Schultz in 2-3 days. CBC, BMP. 5. Follow up with Dr. Thomason as advised. 6. Follow up with Cardiology in one week. 7. Ventolin inhaler p.r.n. 8. Aspirin 81 mg daily. 9. Flexeril 10 mg t.i.d. p.r.n. 10.Lovenox 80 mg subcutaneously b.i.d. 11.Lasix 40 mg p.o. b.i.d. 12.Crandon 5 mg q.6 p.r.n. 13.Hyoscyamine sulfate 0.125 mg p.r.n. 14.DuoNeb q.i.d. 15.Imdur 30 mg p.o. daily. 16.Cozaar 12.5 mg p.o. daily. 17.Metformin 1000 mg p.o. daily. 18.Lopressor 75 mg p.o. b.i.d. 19.Nitrostat 0.4 sublingually p.r.n. 20.Zofran 8 mg b.i.d. p.r.n. 21.Protonix 40 mg with breakfast. 22.Seroquel 25 mg at bedtime. 23.Aldactone 25 mg daily. 24.Follow up closely in the outpatient setting. Once again, the patient will be discharged in stable condition with guarded prognosis. MMODL / IJN: [id number] /
[2018-03-17 18:14] LABS: Total Protein, Body Fluid 3100 mg/dL
== END 2018-03-17 17:50 | disposition home or self-care (01) | DRG 292 ==
LOC: EC 17:00 → 3SCARD 19:37
PROVIDERS: ADMIT Family Medicine; ATTEND Family Medicine
PROC: 0W9G3ZX Drainage of Peritoneal Cavity, Percutaneous Approach, Diagnostic (ICD-10-PCS; principal; 2018-03-16)
PROC: 0W993ZX Drainage of Right Pleural Cavity, Percutaneous Approach, Diagnostic (ICD-10-PCS; 2018-03-17)
DX: I11.0 Hypertensive heart disease with heart failure (principal); J44.1 Chronic obstructive pulmonary disease with (acute) exacerbation; I48.1 Persistent atrial fibrillation; R18.8 Other ascites; L03.311 Cellulitis of abdominal wall; I50.23 Acute on chronic systolic (congestive) heart failure; E11.51 Type 2 diabetes mellitus with diabetic peripheral angiopathy without gangrene; R13.10 Dysphagia, unspecified; K70.9 Alcoholic liver disease, unspecified; K21.9 Gastro-esophageal reflux disease without esophagitis; G89.4 Chronic pain syndrome; F10.10 Alcohol abuse, uncomplicated; I45.10 Unspecified right bundle-branch block; R49.0 Dysphonia; I25.5 Ischemic cardiomyopathy; E78.5 Hyperlipidemia, unspecified; K57.90 Diverticulosis of intestine, part unspecified, without perforation or abscess without bleeding; I25.10 Atherosclerotic heart disease of native coronary artery without angina pectoris; I25.2 Old myocardial infarction; K43.2 Incisional hernia without obstruction or gangrene; N42.9 Disorder of prostate, unspecified; F41.9 Anxiety disorder, unspecified; F17.210 Nicotine dependence, cigarettes, uncomplicated; Z71.6 Tobacco abuse counseling; Z79.82 Long term (current) use of aspirin; Z79.84 Long term (current) use of oral hypoglycemic drugs; Z79.01 Long term (current) use of anticoagulants; Z79.899 Other long term (current) drug therapy; Z85.21 Personal history of malignant neoplasm of larynx; Z86.718 Personal history of other venous thrombosis and embolism; Z86.711 Personal history of pulmonary embolism; Z92.3 Personal history of irradiation; Z95.5 Presence of coronary angioplasty implant and graft; Z86.73 Personal history of transient ischemic attack (TIA), and cerebral infarction without residual deficits; Z87.19 Personal history of other diseases of the digestive system; Z87.440 Personal history of urinary (tract) infections; Z86.19 Personal history of other infectious and parasitic diseases; Z88.5 Allergy status to narcotic agent; Z88.8 Allergy status to other drugs, medicaments and biological substances; Z82.49 Family history of ischemic heart disease and other diseases of the circulatory system; Z83.3 Family history of diabetes mellitus
CPT/HCPCS: 32555; 36415; 49083; 71045; 71046; 76604; 76705; 80048; 80053; 81003; 82150; 82550; 82553; 82945; 83036; 83615; 83690; 83735; 83880; 84155; 84157; 84484; 85025; 85610; 85730; 87070; 87075; 87205; 88108; 88305; 89050; 93005; 94640; 94760; 96374; 99285

== ENCOUNTER 2018-04-06 16:20 | Inpatient (IN) | payer OTHER ==
[2018-04-06 18:48] LABS: Anisocytosis Slight; Basophils % (A) 1 %; Eosinophils # (A) 0.1 k/uL (0-0.7); Eosinophils % (A) 3 %; HCT 43.2 % (39.0-53.0); HGB 13.4 gm/dL (13.0-17.5); Hypochromasia Moderate; Lymphocytes # (A) 0.4 k/uL (1.0-4.8); Lymphocytes % (A) 8 %; MCHC 31.1 g/dL (31.0-37.0); MCV 86.9 fL (80.0-100.0); Mean Platelet Volume 7.4; Monocytes # (A) 0.5 k/uL (0-1.0); Monocytes % (A) 8 %; Neutrophils # (A) 4.5 k/uL (1.3-7.7); Neutrophils % (A) 79 %; Platelet Count 209 k/uL (150-450); RBC 4.97 m/uL (4.30-5.90); RDW 17.4 % (11.5-15.5); WBC 5.7 k/uL (3.8-10.6)
[2018-04-06 18:54] LABS: ALT 16 U/L (21-72); AST 35 U/L (17-59); Albumin 3.4 g/dL (3.5-5.0); Alkaline Phosphatase 424 U/L (38-126); Amylase 34 U/L (30-110); Anion Gap 9 mmol/L; Blood Urea Nitrogen 22 mg/dL (9-20); Calcium 9.2 mg/dL (8.4-10.2); Carbon Dioxide 28 mmol/L (22-30); Chloride 103 mmol/L (98-107); Glucose 123 mg/dL (74-99); Lipase 20 U/L (23-300); Potassium 4.3 mmol/L (3.5-5.1); Sodium 140 mmol/L (137-145); Total Bilirubin 1.4 mg/dL (0.2-1.3); Total Protein 7.2 g/dL (6.3-8.2)
[2018-04-06] MEDS ORDERED: ONDANSETRON 4 MG/2 ML VIAL IVP STA (19:03)
[2018-04-06] MEDS ORDERED: MORPHINE SULFATE 4 MG/ML SYRINGE IV STA (19:03)
[2018-04-06 20:01] LABS: Amorphous Sediment,Urine Rare /hpf; Appearance,Urine Clear (Clear); Bilirubin,Urine 1+ (Negative); Blood,Urine Negative (Negative); Color,Urine Dark Yellow; Glucose,Urine (UA) Negative (Negative); Ketones,Urine Negative (Negative); Leukocyte Esterase,Urine Negative (Negative); Mucus,Urine Few /hpf; Nitrite,Urine Negative (Negative); Protein,Urine 1+ (Negative); RBC,Urine 2 /hpf (0-5); Specific Gravity,Urine 1.023 (1.001-1.035); WBC,Urine 1 /hpf (0-5)
[2018-04-06 20:24] LABS: Creatine Kinase MB 6.3 ng/mL (0.0-2.4); Troponin I 0.029 ng/mL (0.000-0.034)
--- NOTE | 2018-04-06 20:32 | XR ---
EXAMINATION TYPE: XR KUB DATE OF EXAM: 04/06/2018 COMPARISON: 11/24/2017 HISTORY: Pain and distention TECHNIQUE: 2 upright views to include the abdomen and pelvis FINDINGS: There is no evidence of pneumoperitoneum. No bowel obstruction. Excessive pancolonic stool is noted. The striking finding, however, is a featureless abdomen and pelvic appearance - with centralization o f the bowel loops and with a homogeneously-added opacity over the entire abdomen and pelvis. These fi ndings are consistent with large volume of peritoneal fluid. Also, there is a large right pleural eff usion evident. These findings are more prominent than the prior study. Enlarged cardiac silhouette redemonstrated. IMPRESSION: 1. LARGE VOLUME PERITONEAL FLUID. 2. LARGE RIGHT PLEURAL EFFUSION 3. RADIOGRAPHIC FEATURES OF CONSTIPATION.
--- NOTE | 2018-04-06 20:37 | XR ---
EXAMINATION: XR chest 2V DATE AND TIME: 04/06/2018 7:52 PM CLINICAL INDICATION: PHH; Pain TECHNIQUE: Departmental protocol COMPARISON: 03/17/2018 FINDINGS: There is a massive right pleural effusion present, with complete atelectasis of the right middle lobe and right lower lobe. This has increased to at least a mild degree when compared the prior study. Th e upper lung zone is clear. There is slight rightward shift of the mediastinum, likely due to the right middle and lower lobe ate lectasis. Moderate cardiac silhouette enlargement redemonstrated, appearing similar to the prior study. The left lung is clear and the left pleural space is negative. No definite acute skeletal or soft tissue findings. IMPRESSION: 1. Massive right pleural effusion with passive complete atelectasis of the right middle and lower lo bes. 2. Enlarged cardiac silhouette.
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
[2018-04-06 20:56] LABS: INR 1.2 (<1.2); Prothrombin Time 12.2 sec (9.0-12.0)
[2018-04-06] MEDS ORDERED: DILTIAZEM DRIP BOLUS FROM BAG 1 MG SOLN IV ONE (21:46)
[2018-04-06] MEDS ORDERED: ENOXAPARIN 80 MG/0.8 ML SYRINGE SQ STA (21:47)
[2018-04-06] MEDS ORDERED: NALOXONE 0.4 MG/ML 1 ML VIAL IV PRN (21:48)
[2018-04-06] MEDS ORDERED: NITROGLYCERIN SL TABS 0.4 MG TAB SUBLINGUAL PRN (21:50)
[2018-04-06] MEDS ORDERED: CYCLOBENZAPRINE 10 MG TAB PO PRN (21:50)
[2018-04-06] MEDS ORDERED: ALBUTEROL NEBULIZED 2.5 MG/3 ML INHALATION PRN (21:50)
[2018-04-06] MEDS ORDERED: HYOSCYAMINE SULFATE 0.125 MG TAB PO PRN (21:50)
[2018-04-07] MEDS: ENOXAPARIN 80 MG/0.8 ML SYRINGE SQ SCH ×2 (00:08→11:37)
[2018-04-07] MEDS: MORPHINE SULFATE 4 MG/ML SYRINGE IV PRN ×5 (00:42→17:33)
[2018-04-07 01:40] VITALS: BMI 26.6
[2018-04-07 06:05] LABS: Glucose,Whole Blood 101 mg/dL (75-99)
[2018-04-07] MEDS: DILTIAZEM 50 MG in SODIUM CHLORIDE 0.9% 40 ML IV SCH ×2 (06:31→09:57)
[2018-04-07] MEDS: PANTOPRAZOLE 40 MG TABLET PO SCH (06:42)
[2018-04-07] MEDS ORDERED: metFORMIN 500 MG TAB PO SCH (07:30)
[2018-04-07] MEDS: ISOSORBIDE MONONITRATE ER 30 MG TAB.ER.24H PO SCH (08:15)
[2018-04-07] MEDS: SPIRONOLACTONE 25 MG TAB PO SCH (08:16)
[2018-04-07] MEDS: IPRATROPIUM-ALBUTEROL 3 ML NEB INHALATION SCH ×4 (08:44→20:39)
[2018-04-07] MEDS ORDERED: FUROSEMIDE 40 MG TAB PO SCH (09:00)
[2018-04-07] MEDS ORDERED: LOSARTAN 25 MG TAB PO SCH (09:00)
[2018-04-07] MEDS ORDERED: ENOXAPARIN 80 MG/0.8 ML SYRINGE SQ SCH (09:00)
[2018-04-07] MEDS ORDERED: METOPROLOL TARTRATE 25 MG TAB PO SCH (09:00)
[2018-04-07] MEDS: FUROSEMIDE 10 MG/ML 4 ML VIAL IV SCH ×2 (09:35→17:17)
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
[2018-04-07] MEDS: ONDANSETRON 4 MG/2 ML VIAL IVP PRN ×2 (10:47→20:39)
[2018-04-07] MEDS: ASPIRIN 81 MG PO SCH (11:37)
--- NOTE | 2018-04-07 12:52 | XR ---
EXAMINATION TYPE: XR abdomen acute w cxr DATE OF EXAM: 04/07/2018 COMPARISON: 04/06/2018 HISTORY: Pain TECHNIQUE: Supine, upright, and left side down lateral decubitus views of the abdomen are obtained. FINDINGS: There is a stable moderate to large right-sided pleural effusion. Cardiomegaly noted. Left lung clear. No pneumothorax. Postsurgical change overlying the vertebral column. Arthropathy of the s houlders. Numerous splenic granuloma are seen and there are vascular calcifications. Hepatic granuloma noted. Q uestion right-sided renal calculi. Vascular calcifications are noted. Hypertrophic and degenerative c hange of the spine. Bowel gas pattern nonspecific. Prostate calcifications are seen. There is arthrit ic change of the hips. IMPRESSION: 1. Nonspecific abdomen with no diagnostic evidence of obstruction. Liver appears prominent in size co rrelate clinically. Changes of chronic granulomatous disease noted. Right-sided renal calculi not exc luded. 2. Moderate to large right-sided pleural effusion.
[2018-04-07] MEDS: LACTULOSE 20 GM/30 ML CUP PO SCH (13:03)
--- NOTE | 2018-04-07 14:48 | US ---
Therapeutic paracentesis. DATE OF EXAM: 04/07/2018 CLINICAL HISTORY: Ascites The procedure was discussed with the patient. The risks, complications, benefits, and alternatives we re discussed and any questions were answered. Informed consent was obtained. The patient was placed s upine on the ultrasound table and prepped and draped in the usual sterile fashion. All elements of maximal barrier technique were utilized. Under ultrasound guidance, access into the right lower quadrant was obtained, via the paracentesis catheter system and direct ultrasound guidanc e. Approximately 3.8 liters of straw-colored fluid was removed. The patient was stable throughout the pr ocedure and remained stable upon discharge from Department of Radiology. IMPRESSION: Successful therapeutic paracentesis under ultrasound guidance.
[2018-04-07] MEDS: METOPROLOL TARTRATE 25 MG TAB PO SCH (16:12)
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
[2018-04-07 16:38] LABS: Glucose,Whole Blood 113 mg/dL (75-99)
[2018-04-07 18:39] LABS: Hemoglobin A1C 6.5 % (4.0-6.0)
[2018-04-07] MEDS: SYMBICORT 160-4.5 MCG INHALER INHALATION SCH (20:41)
[2018-04-07 21:25] LABS: Glucose,Whole Blood 75 mg/dL (75-99)
[2018-04-07 22:52] LABS: Glucose,Whole Blood 91 mg/dL (75-99)
--- NOTE | 2018-04-07 23:29 | US ---
EXAMINATION TYPE: US chest DATE OF EXAM: 04/07/2018 COMPARISON: NONE CLINICAL HISTORY: Markings for thoracentesis by pulmonary staff. Right pleural effusion. TECHNIQUE: Targeted ultrasound of the posterior lower right hemithorax EXAM MEASUREMENTS: Right Pleural Effusion pocket size: 13 cm Right skin surface to fluid distance: 1.7 cm Right side marked for possible thoracentesis outside the dept.. Pulmonologists are able to review the images in the patient?s EMR. IMPRESSIONS: There is demonstration of a large right-sided pleural effusion.
[2018-04-08] MEDS: LACTULOSE 20 GM/30 ML CUP PO SCH ×3 (00:30→20:07)
[2018-04-08] MEDS: QUEtiapine 25 MG TAB PO SCH ×2 (00:31→21:17)
[2018-04-08] MEDS: METOPROLOL TARTRATE 25 MG TAB PO SCH ×4 (00:32→23:36)
[2018-04-08] MEDS: FUROSEMIDE 10 MG/ML 4 ML VIAL IV SCH (01:52)
[2018-04-08] MEDS: MORPHINE SULFATE 4 MG/ML SYRINGE IV PRN ×3 (03:12→20:06)
[2018-04-08 05:10] LABS: Anisocytosis Slight; HCT 43.1 % (39.0-53.0); Hypochromasia Marked; MCH 26.9 pg (25.0-35.0); MCHC 30.2 g/dL (31.0-37.0); MCV 88.8 fL (80.0-100.0); Mean Platelet Volume 7.7; Platelet Count 231 k/uL (150-450); RBC 4.85 m/uL (4.30-5.90); RDW 17.5 % (11.5-15.5); WBC 6.3 k/uL (3.8-10.6)
[2018-04-08 05:37] LABS: ALT 25 U/L (21-72); AST 34 U/L (17-59); Albumin 3.2 g/dL (3.5-5.0); Alkaline Phosphatase 363 U/L (38-126); Anion Gap 8 mmol/L; Blood Urea Nitrogen 30 mg/dL (9-20); Calcium 9.1 mg/dL (8.4-10.2); Carbon Dioxide 31 mmol/L (22-30); Chloride 96 mmol/L (98-107); Glucose 101 mg/dL (74-99); Potassium 4.8 mmol/L (3.5-5.1); Sodium 135 mmol/L (137-145); Total Bilirubin 1.5 mg/dL (0.2-1.3); Total Protein 6.6 g/dL (6.3-8.2)
[2018-04-08 07:23] LABS: Glucose,Whole Blood 98 mg/dL (75-99)
[2018-04-08] MEDS: IPRATROPIUM-ALBUTEROL 3 ML NEB INHALATION SCH ×4 (07:24→20:48)
[2018-04-08] MEDS: SYMBICORT 160-4.5 MCG INHALER INHALATION SCH ×2 (07:24→20:48)
--- NOTE | 2018-04-08 07:36 | P.PN ---
Subjective Progress Note Date: 04/08/18 Principal diagnosis: CAD/ischemic cardiomyopathy This is a pleasant 62-year-old gentleman who is known to our service from before with a past medical history significant for coronary artery disease and prior coronary artery stenting, severe ischemic cardiomyopathy, chronic persistent atrial fibrillation on anticoagulation with Lovenox, as well as multiple comorbid conditions including history of DVT, was admitted to the hospital with shortness of breath. He was seen by his primary care physician yesterday who noticed that the patient was more short of breath as well as having more distended abdomen and lower extremities edema. Because of that he was referred to the hospital. In the hospital workup revealed right sided pleural effusion confirmed by ultrasound of the chest. He is in process of getting right pleurocentesis later on today. He underwent paracentesis yesterday. Last night he developed acute respiratory distress and he was hypotensive and bradycardic and he was brought to the intensive care unit. On follow-up with him today, April 082018, he is a slightly confused. Hemodynamically he is stable. The blood pressure and heart rate are better overall. He can be transferred out of the intensive care unit. Objective - Vital Signs Vital signs: Vital Signs Temp 98.4 F 04/08/18 04:00 Pulse 99 04/08/18 07:00 Resp 11 L 04/08/18 07:00 BP 99/57 04/08/18 07:00 Pulse Ox 93 L 04/08/18 07:00 Intake & Output 04/07/18 04/08/18 04/08/18 18:59 06:59 18:59 Intake Total 480 Output Total 1000 1120 250 Balance -520 -1120 -250 Weight 77.3 kg Intake: Oral 480 Output: Urine 1000 1120 250 Other: Voiding Method Toilet Urinal - Constitutional General appearance: Present: no acute distress - Respiratory Respiratory: bilateral: diminished - Cardiovascular Rhythm: irregularly irregular Heart sounds: normal: S1, S2 Abnormal Heart Sounds: Present: systolic murmur - Labs CBC & Chem 7: 04/08/18 04:27 04/08/18 04:27 Labs: Abnormal Lab Results - Last 24 Hours (Table) 04/06/18 04/07/18 04/08/18 Range/Units 18:23 16:24 04:27 MCHC 30.2 L (31.0-37.0) g/dL RDW 17.5 H (11.5-15.5) % Sodium (137-145) mmol/L Chloride (98-107) mmol/L Carbon Dioxide (22-30) mmol/L BUN (9-20) mg/dL Glucose (74-99) mg/dL POC Glucose (mg/dL) 113 H (75-99) mg/dL Hemoglobin A1c 6.5 H (4.0-6.0) % Total Bilirubin (0.2-1.3) mg/dL Alkaline Phosphatase (38-126) U/L Albumin (3.5-5.0) g/dL 04/08/18 Range/Units 04:27 MCHC (31.0-37.0) g/dL RDW (11.5-15.5) % Sodium 135 L (137-145) mmol/L Chloride 96 L (98-107) mmol/L Carbon Dioxide 31 H (22-30) mmol/L BUN 30 H (9-20) mg/dL Glucose 101 H (74-99) mg/dL POC Glucose (mg/dL) (75-99) mg/dL Hemoglobin A1c (4.0-6.0) % Total Bilirubin 1.5 H (0.2-1.3) mg/dL Alkaline Phosphatase 363 H (38-126) U/L Albumin 3.2 L (3.5-5.0) g/dL Microbiology - Last 24 Hours (Table) 04/06/18 19:35 Blood Culture - Preliminary Blood No Growth after 24 hours Assessment and Plan Assessment: Assessment #1 large right-sided pleural effusion #2 shortness of breath secondary to the above #3 status post paracentesis #4 recurrent ascites #5 coronary artery disease #6 ischemic cardiomyopathy #7 multiple comorbid conditions Plan #1 continue the current dose of IV Lasix. #2 continue monitor the kidney function and electrolytes #3 he is in process of getting the right side pleurocentesis later on today #4 restart the patient on anticoagulation once the pleurocentesis is over #5 follow-up with the patient
[2018-04-08] MEDS ORDERED: FUROSEMIDE 40 MG TAB PO SCH (09:00)
[2018-04-08] MEDS: ASPIRIN 81 MG PO SCH (09:06)
[2018-04-08] MEDS: ISOSORBIDE MONONITRATE ER 30 MG TAB.ER.24H PO SCH (09:06)
[2018-04-08] MEDS: PANTOPRAZOLE 40 MG TABLET PO SCH (09:06)
[2018-04-08] MEDS: SPIRONOLACTONE 25 MG TAB PO SCH (09:06)
--- NOTE | 2018-04-08 12:40 | XR ---
EXAMINATION TYPE: XR chest 1V portable DATE OF EXAM: 04/08/2018 COMPARISON: 04/06/2018 INDICATION: Postthoracentesis TECHNIQUE: Single frontal view of the chest is obtained. FINDINGS: The heart size is moderate in size. The pulmonary vasculature is normal. There is a small right pleural effusion. This is diminished moderate pleural effusion on previous exa m. No pneumothorax is evident. EKG leads overlie the right chest. IMPRESSION: 1. No pneumothorax postthoracentesis. 2. Small residual right pleural fluid. 3. Moderate cardiomegaly
--- NOTE | 2018-04-08 12:46 | P.PN ---
Subjective Patient was admitted secondary to volume overload from congestive heart failure and cirrhosis. Patient underwent paracentesis with removal of 3 and half liters of fluid. Patient will undergo thoracocentesis today. Patient was bit hypotensive because of which patient was transferred to ICU although we do not expect his blood pressure to be very high because of his poor ejection fraction of 20% and cirrhosis. Patient is still short of breath but bit better than yesterday. Patient's creatinine has gone up a little bit and patient is not urinating much as he just had paracentesis. Constitutional: Denied any fatigue denied any fever. Cardio vascular: denied any chest pain, palpitations Gastrointestinal denied any nausea vomiting Pulmonary: Denied any shortness of breath cough Neurologic denied any new focal deficits All inpatient medications were reviewed and appropriate changes in these medications as dictated in the interval history and assessment and plan. Objective - Vital Signs Vital signs: Vital Signs Temp 98.1 F 04/08/18 12:00 Pulse 85 04/08/18 12:00 Resp 22 04/08/18 12:00 BP 108/76 04/08/18 12:00 Pulse Ox 95 04/08/18 12:00 Intake & Output 04/07/18 04/08/18 04/08/18 18:59 06:59 18:59 Intake Total 480 Output Total 1000 1120 2500 Balance -520 -1120 -2500 Weight 77.3 kg Intake: Oral 480 Output: Urine 1000 1120 500 Other 2000 Other: Voiding Method Toilet Toilet Urinal Urinal - Exam PHYSICAL EXAMINATION: GENERAL: The patient is alert and oriented x3, not in any acute distress. Well developed, well nourished. HEENT: Pupils are round and equally reacting to light. EOMI. No scleral icterus. No conjunctival pallor. Normocephalic, atraumatic. No pharyngeal erythema. No thyromegaly. CARDIOVASCULAR: S1 and S2 present. No murmurs, rubs, or gallops. PULMONARY: And has minimally red wheezing rhonchus breath sounds. ABDOMEN: Abdomen is distended with ascites and ventral hernia, pain in the left lower quadrant improved ascites improved MUSCULOSKELETAL: No joint swelling or deformity. EXTREMITIES: No cyanosis, clubbing, or pedal edema. NEUROLOGICAL: Gross neurological examination did not reveal any focal deficits. SKIN: No rashes. - Labs CBC & Chem 7: 04/08/18 04:27 04/08/18 04:27 Labs: Abnormal Lab Results - Last 24 Hours (Table) 04/06/18 04/07/18 04/08/18 Range/Units 18:23 16:24 04:27 MCHC 30.2 L (31.0-37.0) g/dL RDW 17.5 H (11.5-15.5) % Sodium (137-145) mmol/L Chloride (98-107) mmol/L Carbon Dioxide (22-30) mmol/L BUN (9-20) mg/dL Glucose (74-99) mg/dL POC Glucose (mg/dL) 113 H (75-99) mg/dL Hemoglobin A1c 6.5 H (4.0-6.0) % Total Bilirubin (0.2-1.3) mg/dL Alkaline Phosphatase (38-126) U/L Albumin (3.5-5.0) g/dL 04/08/18 Range/Units 04:27 MCHC (31.0-37.0) g/dL RDW (11.5-15.5) % Sodium 135 L (137-145) mmol/L Chloride 96 L (98-107) mmol/L Carbon Dioxide 31 H (22-30) mmol/L BUN 30 H (9-20) mg/dL Glucose 101 H (74-99) mg/dL POC Glucose (mg/dL) (75-99) mg/dL Hemoglobin A1c (4.0-6.0) % Total Bilirubin 1.5 H (0.2-1.3) mg/dL Alkaline Phosphatase 363 H (38-126) U/L Albumin 3.2 L (3.5-5.0) g/dL Microbiology - Last 24 Hours (Table) 04/06/18 19:35 Blood Culture - Preliminary Blood No Growth after 24 hours Assessment and Plan Plan: -Shortness of breath secondary to right-sided pleural effusion patient will be started on Lasix 40 mg IV. Pleural effusion is multifactorial secondary to cirrhosis and heart failure. My suspicion is extremely low for parapneumonic effusion. Patient will undergo thoracocentesis patient has mild COPD exacerbation continue with inhaled steroids -Ascites left lower quadrant abdominal pain in spite of this left lower quadrant pain and suspicion is extremely low that patient has responded is back to peritonitis and will not require any antibiotics we'll order therapeutic paracentesis. Patient is on Aldactone which will be continued. Because high risk for lactic acidosis from cirrhosis, metformin is probably not a good idea will obtain hemoglobin A1c him not sure whether patient is actually diabetic. -Constipation will use lactulose for constipation and there is no evidence of hepatic encephalopathy at this time. -Congestive heart failure chronic systolic dysfunction ejection fraction of 20% with acute exacerbation. Continue to hold off on losartan because of low blood pressure -Atrial fibrillation presently rate controlled Cardizem will be discontinued patient is poor EF, patient will be continued on Lovenox after thoracocentesis this is being temporally held -history of DVT and pulmonary embolism in the past -Alcoholic cirrhosis although patient quit alcohol -Type 2 diabetes mellitus: We'll obtain hemoglobin A1c further management as mentioned above patient the probably not a good candidate for metformin. -CVA TIA in the past -Gastroesophageal reflux disease -Benign prostatic hypertrophic -Coronary artery disease
--- NOTE | 2018-04-08 12:55 | PCN ---
PROCEDURE NOTE Operative report is right-sided thoracentesis. PREOPERATIVE DIAGNOSIS: Right pleural effusion. POSTOPERATIVE DIAGNOSIS: Right pleural effusion. ANESTHESIA USED: 2 mL of 1% lidocaine. PROCEDURE: Patient was placed in a sitting upright position. The area below the right scapula was prepared in a sterile fashion and drapes were applied. Earlier we had ultrasound guidance as to the location of the fluid and that correlated to the 8th intercostal space and tip of the scapula. The area was locally anesthetized with lidocaine. Then, a 26-gauge needle was inserted at the same site, advanced into the pleural space. Fluid was localized with a needle. A small tiny incision was made at the same site, and a standard 8-Gabonese catheter and needle were inserted at the same site, advanced into the pleural space until fluid was obtained. Then, the catheter was advanced out of the needle into the pleural space and the needle was pulled out of the pleural space. Freely flowing fluid was removed, roughly 2000 mL of leslye colored fluid removed from the right pleural space. No evidence of any complications. Chest x-ray showed almost near complete resolution of the pleural effusion, and no evidence of pneumothorax. The fluid was sent for different diagnostic studies. MMODL / IJN: [id number] /
--- NOTE | 2018-04-08 13:11 | P.PN ---
Subjective Progress Note Date: 04/08/18 Principal diagnosis: Recurrent right-sided pleural effusion and ascites, multifactorial. This is a 62-year-old white male with history of multiple medical problems including chronic atrial fibrillation, coronary artery disease, congestive heart failure, prior history of pulmonary embolism, COPD, liver cirrhosis, previous history of deep vein thrombosis, patient was readmitted this time to the hospital with mostly symptoms of increased shortness of breath, increased abdominal girth, and abdominal discomfort. Patient had recurrent pleural effusion and he had recurrent ascites, multiple procedures including thoracentesis procedures and paracentesis procedures were done in the past. Considering the patient was noted to have right-sided pleural effusion, I was asked to see him on consultation. I did recommend ultrasound of the chest, and I plan to perform thoracentesis again on this patient tomorrow. In the meantime patient underwent paracentesis by interventional radiology, and just over 3 L of fluids were drained. At the present time, the patient has mostly shortness shortness of breath, no cough no wheezing, no fever no chills no hemoptysis. No headaches no blurred vision no dizziness. He does have intermittent episodes of nausea, no vomiting, he does have abdominal discomfort and increased abdominal girth. Denies any dysuria and no frequency no urgency. Patient is on high dose of Lovenox, which I wouldn't placed on hold tonight, and I plan to perform a right-sided thoracentesis in a.m. Patient was reevaluated today on 04/08/2018, patient was transferred to the ICU last night mostly because of increased shortness of breath, worsening respiratory distress, he was noted to be hypotensive and bradycardic. Shortly after he arrived to the ICU, patient was feeling better, apparently this all happened while he was taking a shower and he had his oxygen off at the time. Today the patient is hemodynamically stable, doing quite well, and denies any chest pain, but he does have chronic shortness of breath. Proceeded today to a right-sided thoracentesis which was done, and I was able to remove 2 L of fluids from the right pleural space. I felt that the patient could be transferred back to the cardiac floor today. If cleared by other consultants on the case including cardiology. Chest x-ray postoperatively was reviewed, and his labs were reviewed from today Objective - Vital Signs Vital signs: Vital Signs Temp 98.1 F 04/08/18 12:00 Pulse 85 04/08/18 12:00 Resp 22 04/08/18 12:00 BP 108/76 04/08/18 12:00 Pulse Ox 95 04/08/18 12:00 Intake & Output 04/07/18 04/08/18 04/08/18 18:59 06:59 18:59 Intake Total 480 Output Total 1000 1120 2500 Balance -520 -1120 -2500 Weight 77.3 kg Intake: Oral 480 Output: Urine 1000 1120 500 Other 2000 Other: Voiding Method Toilet Toilet Urinal Urinal - Exam Physical Exam revealed a 62-year-old white male in no distress. Head: Atraumatic, normocephalic. HEENT:[Neck is supple.] [No neck masses.] [No thyromegaly.] [No JVD.] PERRLA, EOMI, no icterus, positive JVD noted. Chest: [Diminished breath sound bilaterally, dullness at the right base noted.] Cardiac Exam: Irregular irregular rhythm. [Normal S1 and S2, no S3 gallop, 2/6 systolic murmur thought the precordium. Abdomen: Firm, distended, nontender, no megaly, no rebound, no guarding, normal bowel sounds. Positive ascites] Extremities: [No clubbing, 1+ bipedal edema, no cyanosis.] Neurological Exam: [No focal neurologic deficit.] Psychiatric: Normal mood, affect and mental status examination Lymphatics: No lymphadenopathy. - Labs CBC & Chem 7: 04/08/18 04:27 04/08/18 04:27 Labs: Abnormal Lab Results - Last 24 Hours (Table) 04/06/18 04/07/18 04/08/18 Range/Units 18:23 16:24 04:27 MCHC 30.2 L (31.0-37.0) g/dL RDW 17.5 H (11.5-15.5) % Sodium (137-145) mmol/L Chloride (98-107) mmol/L Carbon Dioxide (22-30) mmol/L BUN (9-20) mg/dL Glucose (74-99) mg/dL POC Glucose (mg/dL) 113 H (75-99) mg/dL Hemoglobin A1c 6.5 H (4.0-6.0) % Total Bilirubin (0.2-1.3) mg/dL Alkaline Phosphatase (38-126) U/L Albumin (3.5-5.0) g/dL 04/08/18 Range/Units 04:27 MCHC (31.0-37.0) g/dL RDW (11.5-15.5) % Sodium 135 L (137-145) mmol/L Chloride 96 L (98-107) mmol/L Carbon Dioxide 31 H (22-30) mmol/L BUN 30 H (9-20) mg/dL Glucose 101 H (74-99) mg/dL POC Glucose (mg/dL) (75-99) mg/dL Hemoglobin A1c (4.0-6.0) % Total Bilirubin 1.5 H (0.2-1.3) mg/dL Alkaline Phosphatase 363 H (38-126) U/L Albumin 3.2 L (3.5-5.0) g/dL Microbiology - Last 24 Hours (Table) 04/06/18 19:35 Blood Culture - Preliminary Blood No Growth after 24 hours Assessment and Plan Assessment: 1 recurrent right-sided pleural effusion with recurrent ascites, multifactorial , mostly cardiac and liver related. Previous workup for malignancy was negative. 2 chronic and recurrent ascites, requiring multiple paracentesis procedures in the past. 3 chronic atrial fibrillation. Being addressed by cardiology. 4 severe ischemic cardiomyopathy, ejection fraction of 20%, history of moderate mitral regurgitation and moderate severe tricuspid regurgitation. 5 underlying COPD 6 history of laryngeal cancer status post radiation treatment. 7: Benign essential hypertension 8 type 2 diabetes 10 hyperlipidemia 11 underlying coronary artery disease and previous stent placement 12 chronic systolic congestive heart failure. Recommendation: Patient was seen and examined in the ICU, discussed all his medical issues above, recommended thoracentesis, this was done at bedside, and I was able to drain 2000 mL, please refer to the operative report. From my perspective, the patient could be transferred back out of the ICU to a cardiac floor, and possibly consider discharge planning in the next 24 hours. In the meantime continue addressing all the issues as noted above, patient will likely have recurrent effusion and recurrent ascites mostly because of his underlying liver and cardiac conditions. Prognosis remains guarded, patient continues to have multiple complex issues as noted above. Time with Patient: Less than 30
[2018-04-08 15:48] LABS: Appearance,BF Hazy; Nucleated Cells, Body Fluid 150 /uL; RBC, Body Fluid 2100 /uL
[2018-04-08 16:03] LABS: Mononuclear WBC,Body Fluid 44 %; Polynuclear WBC,Body Fluid 56 %; Total Cells Counted,Body Fluid 100
[2018-04-08 17:12] LABS: Glucose,Whole Blood 104 mg/dL (75-99)
[2018-04-08 19:46] LABS: Total Protein, Body Fluid 3100 mg/dL
[2018-04-08 20:47] LABS: Glucose,Whole Blood 199 mg/dL (75-99)
[2018-04-08] MEDS ORDERED: FUROSEMIDE 10 MG/ML 4 ML VIAL IV SCH (21:00)
[2018-04-09] MEDS: MORPHINE SULFATE 4 MG/ML SYRINGE IV PRN ×2 (03:22→22:39)
[2018-04-09 05:34] LABS: Anisocytosis Slight; HCT 40.8 % (39.0-53.0); Hypochromasia Marked; MCH 26.2 pg (25.0-35.0); MCHC 29.5 g/dL (31.0-37.0); Platelet Count 224 k/uL (150-450); RBC 4.59 m/uL (4.30-5.90); RDW 17.6 % (11.5-15.5); WBC 6.6 k/uL (3.8-10.6)
[2018-04-09 05:43] LABS: ALT 26 U/L (21-72); AST 30 U/L (17-59); Albumin 2.9 g/dL (3.5-5.0); Alkaline Phosphatase 422 U/L (38-126); Anion Gap 8 mmol/L; Blood Urea Nitrogen 25 mg/dL (9-20); Calcium 8.6 mg/dL (8.4-10.2); Carbon Dioxide 28 mmol/L (22-30); Chloride 99 mmol/L (98-107); Glucose 123 mg/dL (74-99); Potassium 4.2 mmol/L (3.5-5.1); Sodium 135 mmol/L (137-145); Total Bilirubin 1.2 mg/dL (0.2-1.3); Total Protein 6.2 g/dL (6.3-8.2)
[2018-04-09 07:15] LABS: Glucose,Whole Blood 139 mg/dL (75-99)
--- NOTE | 2018-04-09 07:21 | P.PN ---
Subjective Progress Note Date: 04/09/18 Principal diagnosis: CAD/ischemic cardiomyopathy This is a pleasant 62-year-old gentleman who is known to our service from before with a past medical history significant for coronary artery disease and prior coronary artery stenting, severe ischemic cardiomyopathy, chronic persistent atrial fibrillation on anticoagulation with Lovenox, as well as multiple comorbid conditions including history of DVT, was admitted to the hospital with shortness of breath. He was seen by his primary care physician yesterday who noticed that the patient was more short of breath as well as having more distended abdomen and lower extremities edema. Because of that he was referred to the hospital. Last night he developed acute respiratory distress and he was hypotensive and bradycardic and he was brought to the intensive care unit. On follow-up with the patient today, 04/09/2018, the patient is doing better internal shortness of breath. His mentation has improved as well. Yesterday he underwent right pleurocentesis and 2 L of fluid were taken out. I suggested that the patient can be discharged home on anticoagulation with Lovenox. Objective - Vital Signs Vital signs: Vital Signs Temp 98.2 F 04/09/18 04:00 Pulse 68 04/09/18 04:00 Resp 22 04/09/18 04:00 BP 118/61 04/09/18 04:00 Pulse Ox 95 04/09/18 04:00 Intake & Output 04/08/18 04/09/18 04/09/18 18:59 06:59 18:59 Intake Total 500 Output Total 2500 1100 Balance -2500 -600 Weight 75 kg Intake: Oral 500 Output: Urine 500 1100 Other 2000 Other: Voiding Method Toilet Toilet Urinal Urinal - Constitutional General appearance: Present: no acute distress - Respiratory Respiratory: bilateral: CTA - Cardiovascular Rhythm: irregularly irregular Heart sounds: normal: S1, S2 Abnormal Heart Sounds: Present: systolic murmur - Labs CBC & Chem 7: 04/09/18 04:40 04/09/18 04:40 Labs: Abnormal Lab Results - Last 24 Hours (Table) 04/08/18 04/08/18 04/09/18 Range/Units 17:08 20:44 04:40 Hgb 12.0 L (13.0-17.5) gm/dL MCHC 29.5 L (31.0-37.0) g/dL RDW 17.6 H (11.5-15.5) % Sodium (137-145) mmol/L BUN (9-20) mg/dL Glucose (74-99) mg/dL POC Glucose (mg/dL) 104 H 199 H (75-99) mg/dL Alkaline Phosphatase (38-126) U/L Total Protein (6.3-8.2) g/dL Albumin (3.5-5.0) g/dL 04/09/18 04/09/18 Range/Units 04:40 07:12 Hgb (13.0-17.5) gm/dL MCHC (31.0-37.0) g/dL RDW (11.5-15.5) % Sodium 135 L (137-145) mmol/L BUN 25 H (9-20) mg/dL Glucose 123 H (74-99) mg/dL POC Glucose (mg/dL) 139 H (75-99) mg/dL Alkaline Phosphatase 422 H (38-126) U/L Total Protein 6.2 L (6.3-8.2) g/dL Albumin 2.9 L (3.5-5.0) g/dL Microbiology - Last 24 Hours (Table) 04/08/18 12:02 Gram Stain - Preliminary Pleural Fluid Body Fluid Culture - Preliminary 04/06/18 19:35 Blood Culture - Preliminary Blood No Growth after 48 hours Assessment and Plan Assessment: Assessment #1 large right-sided pleural effusion #2 shortness of breath secondary to the above #3 status post paracentesis #4 recurrent ascites #5 coronary artery disease #6 ischemic cardiomyopathy #7 multiple comorbid conditions Plan #1 DC Lasix IV and start the patient on Lasix by mouth #2 from the cardiovascular standpoint of view he can be discharged home.
[2018-04-09] MEDS: SYMBICORT 160-4.5 MCG INHALER INHALATION SCH ×2 (08:30→21:37)
[2018-04-09] MEDS: IPRATROPIUM-ALBUTEROL 3 ML NEB INHALATION SCH ×3 (08:43→21:37)
[2018-04-09] MEDS: FUROSEMIDE 40 MG TAB PO SCH ×2 (09:02→18:56)
[2018-04-09] MEDS: ISOSORBIDE MONONITRATE ER 30 MG TAB.ER.24H PO SCH (09:02)
[2018-04-09] MEDS: PANTOPRAZOLE 40 MG TABLET PO SCH (09:02)
[2018-04-09] MEDS: LACTULOSE 20 GM/30 ML CUP PO SCH ×2 (09:02→22:39)
[2018-04-09] MEDS: SPIRONOLACTONE 25 MG TAB PO SCH (09:03)
[2018-04-09] MEDS: ASPIRIN 81 MG PO SCH (09:03)
[2018-04-09] MEDS: METOPROLOL TARTRATE 25 MG TAB PO SCH ×3 (09:03→22:36)
[2018-04-09] MEDS: ENOXAPARIN 80 MG/0.8 ML SYRINGE SQ SCH ×2 (09:23→22:35)
--- NOTE | 2018-04-09 11:54 | P.PN ---
Subjective Progress Note Date: 04/09/18 Principal diagnosis: Recurrent right-sided pleural effusion and ascites, multifactorial. This is a 62-year-old white male with history of multiple medical problems including chronic atrial fibrillation, coronary artery disease, congestive heart failure, prior history of pulmonary embolism, COPD, liver cirrhosis, previous history of deep vein thrombosis, patient was readmitted this time to the hospital with mostly symptoms of increased shortness of breath, increased abdominal girth, and abdominal discomfort. Patient had recurrent pleural effusion and he had recurrent ascites, multiple procedures including thoracentesis procedures and paracentesis procedures were done in the past. Considering the patient was noted to have right-sided pleural effusion, I was asked to see him on consultation. I did recommend ultrasound of the chest, and I plan to perform thoracentesis again on this patient tomorrow. In the meantime patient underwent paracentesis by interventional radiology, and just over 3 L of fluids were drained. At the present time, the patient has mostly shortness shortness of breath, no cough no wheezing, no fever no chills no hemoptysis. No headaches no blurred vision no dizziness. He does have intermittent episodes of nausea, no vomiting, he does have abdominal discomfort and increased abdominal girth. Denies any dysuria and no frequency no urgency. Patient is on high dose of Lovenox, which I wouldn't placed on hold tonight, and I plan to perform a right-sided thoracentesis in a.m. Patient was reevaluated today on 04/08/2018, patient was transferred to the ICU last night mostly because of increased shortness of breath, worsening respiratory distress, he was noted to be hypotensive and bradycardic. Shortly after he arrived to the ICU, patient was feeling better, apparently this all happened while he was taking a shower and he had his oxygen off at the time. Today the patient is hemodynamically stable, doing quite well, and denies any chest pain, but he does have chronic shortness of breath. Proceeded today to a right-sided thoracentesis which was done, and I was able to remove 2 L of fluids from the right pleural space. I felt that the patient could be transferred back to the cardiac floor today. If cleared by other consultants on the case including cardiology. Chest x-ray postoperatively was reviewed, and his labs were reviewed from today Patient was reevaluated today on 04/09/2018, patient is doing great, asymptomatic , no cough no wheezing no shortness of breath. [place] much better since his right -sided pleural effusion was drained. The pleural effusion seems to be transudative in nature, no LVH, and the relatively low protein. Cytology is pending, other studies on the fluid are pending, but clearly does not seem to be infected. CBC is relatively normal basic metabolic profile is normal renal profile is normal. Continues to have elevated alkaline phosphatase. Objective - Vital Signs Vital signs: Vital Signs Temp 98.2 F 04/09/18 04:00 Pulse 75 04/09/18 08:43 Resp 22 04/09/18 04:00 BP 118/61 04/09/18 04:00 Pulse Ox 95 04/09/18 04:00 Intake & Output 04/08/18 04/09/18 04/09/18 18:59 06:59 18:59 Intake Total 500 Output Total 2500 1100 Balance -2500 -600 Weight 75 kg Intake: Oral 500 Output: Urine 500 1100 Other 2000 Other: Voiding Method Toilet Toilet Urinal Urinal - Exam Physical Exam revealed a 62-year-old white male in no distress. Preparing to go home Head: Atraumatic, normocephalic. HEENT:[Neck is supple.] [No neck masses.] [No thyromegaly.] [No JVD.] PERRLA, EOMI, no icterus, positive JVD noted. Chest: [Clear bilaterally no crackles or rhonchi or wheezes.] Cardiac Exam: Irregular irregular rhythm. [Normal S1 and S2, no S3 gallop, 2/6 systolic murmur thought the precordium. Abdomen: Soft, nontender, no megaly, no rebound, no guarding, normal bowel sounds. Positive ascites] Extremities: [No clubbing, 1+ bipedal edema, no cyanosis.] Neurological Exam: [No focal neurologic deficit.] Psychiatric: Normal mood, affect and mental status examination Lymphatics: No lymphadenopathy. - Labs CBC & Chem 7: 04/09/18 04:40 04/09/18 04:40 Labs: Abnormal Lab Results - Last 24 Hours (Table) 04/08/18 04/08/18 04/09/18 Range/Units 17:08 20:44 04:40 Hgb 12.0 L (13.0-17.5) gm/dL MCHC 29.5 L (31.0-37.0) g/dL RDW 17.6 H (11.5-15.5) % Sodium (137-145) mmol/L BUN (9-20) mg/dL Glucose (74-99) mg/dL POC Glucose (mg/dL) 104 H 199 H (75-99) mg/dL Alkaline Phosphatase (38-126) U/L Total Protein (6.3-8.2) g/dL Albumin (3.5-5.0) g/dL 04/09/18 04/09/18 Range/Units 04:40 07:12 Hgb (13.0-17.5) gm/dL MCHC (31.0-37.0) g/dL RDW (11.5-15.5) % Sodium 135 L (137-145) mmol/L BUN 25 H (9-20) mg/dL Glucose 123 H (74-99) mg/dL POC Glucose (mg/dL) 139 H (75-99) mg/dL Alkaline Phosphatase 422 H (38-126) U/L Total Protein 6.2 L (6.3-8.2) g/dL Albumin 2.9 L (3.5-5.0) g/dL Microbiology - Last 24 Hours (Table) 04/08/18 12:02 Gram Stain - Preliminary Pleural Fluid Body Fluid Culture - Preliminary 04/06/18 19:35 Blood Culture - Preliminary Blood No Growth after 48 hours Assessment and Plan Assessment: 1 recurrent right-sided pleural effusion with recurrent ascites, multifactorial , mostly cardiac and liver related. Previous workup for malignancy was negative. 2 chronic and recurrent ascites, requiring multiple paracentesis procedures in the past. 3 chronic atrial fibrillation. Being addressed by cardiology. 4 severe ischemic cardiomyopathy, ejection fraction of 20%, history of moderate mitral regurgitation and moderate severe tricuspid regurgitation. 5 underlying COPD 6 history of laryngeal cancer status post radiation treatment. 7: Benign essential hypertension 8 type 2 diabetes 10 hyperlipidemia 11 underlying coronary artery disease and previous stent placement 12 chronic systolic congestive heart failure. 13 status post right sided thoracentesis, and about 2 L of fluid were drained from the right pleural space mostly transudative in nature. Recommendation: Patient was seen and examined in the ICU, discussed all his medical issues above, discussed the initial finding on the pleural effusion, patient could be discharged home from my perspective, follow up on outpatient basis. Discussed his condition yesterday with the admitting physician, Time with Patient: Less than 30
[2018-04-09] MEDS: QUEtiapine 25 MG TAB PO SCH (22:40)
--- NOTE | 2018-04-10 07:31 | P.PN ---
Subjective Progress Note Date: 04/10/18 Principal diagnosis: CAD/ischemic cardiomyopathy This is a pleasant 62-year-old gentleman who is known to our service from before with a past medical history significant for coronary artery disease and prior coronary artery stenting, severe ischemic cardiomyopathy, chronic persistent atrial fibrillation on anticoagulation with Lovenox, as well as multiple comorbid conditions including history of DVT, was admitted to the hospital with shortness of breath. He was seen by his primary care physician yesterday who noticed that the patient was more short of breath as well as having more distended abdomen and lower extremities edema. Because of that he was referred to the hospital. Last night he developed acute respiratory distress and he was hypotensive and bradycardic and he was brought to the intensive care unit. On follow-up with the patient today, 04/10/2018, the patient is doing better internal shortness of breath. His mentation has improved as well. On examination, he does have bilateral expiratory wheezing. From the cardiac standpoint, the patient can be discharged home. Objective - Vital Signs Vital signs: Vital Signs Temp 98.8 F 04/10/18 00:00 Pulse 75 04/10/18 04:00 Resp 22 04/10/18 04:00 BP 98/60 04/10/18 04:00 Pulse Ox 96 04/10/18 04:00 Intake & Output 04/09/18 04/10/18 04/10/18 18:59 06:59 18:59 Output Total 1 Balance -1 Weight 77.5 kg Output: Urine 1 Other: Voiding Method Toilet Toilet # Voids 2 1 # Bowel Movements 1 - Constitutional General appearance: Present: no acute distress - Respiratory Respiratory: bilateral: wheezing - Cardiovascular Rhythm: irregularly irregular Heart sounds: normal: S1, S2 Abnormal Heart Sounds: Present: systolic murmur - Labs CBC & Chem 7: 04/09/18 04:40 04/09/18 04:40 Labs: Microbiology - Last 24 Hours (Table) 04/06/18 19:35 Blood Culture - Preliminary Blood No Growth after 72 hours 04/08/18 12:02 Gram Stain - Preliminary Pleural Fluid Body Fluid Culture - Preliminary Assessment and Plan Assessment: Assessment #1 large right-sided pleural effusion #2 shortness of breath secondary to the above #3 status post paracentesis #4 recurrent ascites #5 coronary artery disease #6 ischemic cardiomyopathy #7 multiple comorbid conditions Plan #1 continue the current medical regimen #2 from the cardiac standpoint he can be discharged home
[2018-04-10] MEDS: SYMBICORT 160-4.5 MCG INHALER INHALATION SCH ×2 (07:39→19:08)
[2018-04-10] MEDS: IPRATROPIUM-ALBUTEROL 3 ML NEB INHALATION SCH ×4 (07:39→19:07)
[2018-04-10 09:39] VITALS: BP 109/55; PULSE 78; RESP 22; TEMP 97
[2018-04-10] MEDS: FUROSEMIDE 40 MG TAB PO SCH (09:41)
[2018-04-10] MEDS: ASPIRIN 81 MG PO SCH (09:41)
[2018-04-10] MEDS: ISOSORBIDE MONONITRATE ER 30 MG TAB.ER.24H PO SCH (09:41)
[2018-04-10] MEDS: METOPROLOL TARTRATE 25 MG TAB PO SCH (09:41)
[2018-04-10] MEDS: LACTULOSE 20 GM/30 ML CUP PO SCH (09:41)
[2018-04-10] MEDS: SPIRONOLACTONE 25 MG TAB PO SCH (09:41)
[2018-04-10] MEDS: ENOXAPARIN 80 MG/0.8 ML SYRINGE SQ SCH (09:42)
[2018-04-10] MEDS: PANTOPRAZOLE 40 MG TABLET PO SCH (09:50)
--- NOTE | 2018-04-10 10:22 | P.PN ---
Subjective Progress Note Date: 04/09/18 Patient was admitted secondary to volume overload from congestive heart failure and cirrhosis. Patient underwent paracentesis with removal of 3 and half liters of fluid. Patient will undergo thoracocentesis today. Patient was bit hypotensive because of which patient was transferred to ICU although we do not expect his blood pressure to be very high because of his poor ejection fraction of 20% and cirrhosis. Patient is still short of breath but bit better than yesterday. Patient's creatinine has gone up a little bit and patient is not urinating much as he just had paracentesis. 04/09/2018 Patient is still not feeling better in spite of thoracocentesis today 2 and half liters of fluid will ablate the patient if patient's saturations are good patient will be discharged. Constitutional: Denied any fatigue denied any fever. Cardio vascular: denied any chest pain, palpitations Gastrointestinal denied any nausea vomiting Pulmonary: Denied any shortness of breath cough Neurologic denied any new focal deficits All inpatient medications were reviewed and appropriate changes in these medications as dictated in the interval history and assessment and plan. Objective - Vital Signs Vital signs: Vital Signs Temp 97.0 F L 04/10/18 09:34 Pulse 78 04/10/18 09:34 Resp 22 04/10/18 09:34 BP 109/55 04/10/18 09:34 Pulse Ox 94 L 04/10/18 09:34 Intake & Output 04/09/18 04/10/18 04/10/18 18:59 06:59 18:59 Intake Total 200 Output Total 1 500 Balance -1 -300 Weight 77.5 kg Intake: Oral 200 Output: Urine 1 500 Other: Voiding Method Toilet Toilet # Voids 2 1 # Bowel Movements 1 - Exam PHYSICAL EXAMINATION: GENERAL: The patient is alert and oriented x3, not in any acute distress. Well developed, well nourished. HEENT: Pupils are round and equally reacting to light. EOMI. No scleral icterus. No conjunctival pallor. Normocephalic, atraumatic. No pharyngeal erythema. No thyromegaly. CARDIOVASCULAR: S1 and S2 present. No murmurs, rubs, or gallops. PULMONARY: And has minimally red wheezing rhonchus breath sounds. ABDOMEN: Abdomen is distended with ascites and ventral hernia, pain in the left lower quadrant improved ascites improved MUSCULOSKELETAL: No joint swelling or deformity. EXTREMITIES: No cyanosis, clubbing, or pedal edema. NEUROLOGICAL: Gross neurological examination did not reveal any focal deficits. SKIN: No rashes. - Labs CBC & Chem 7: 04/09/18 04:40 04/09/18 04:40 Labs: Microbiology - Last 24 Hours (Table) 04/06/18 19:35 Blood Culture - Preliminary Blood No Growth after 72 hours 04/08/18 12:02 Gram Stain - Preliminary Pleural Fluid Body Fluid Culture - Preliminary Assessment and Plan Plan: -Shortness of breath secondary to right-sided pleural effusion patient will be started on Lasix 40 mg IV. Pleural effusion is multifactorial secondary to cirrhosis and heart failure. My suspicion is extremely low for parapneumonic effusion. patient has mild COPD exacerbation continue with inhaled steroids. Patient also underwent thoracocentesis with removal of 2 L of fluid. -Ascites left lower quadrant abdominal pain in spite of this left lower quadrant pain and suspicion is extremely low that patient has responded is back to peritonitis and will not require any antibiotics and is status post paracentesis. Patient is on Aldactone which will be continued. Because high risk for lactic acidosis from cirrhosis, metformin is probably not a good idea will obtain hemoglobin A1c him not sure whether patient is actually diabetic. Patient's of metformin will be discontinued upon discharge -Constipation prone now -Congestive heart failure chronic systolic dysfunction ejection fraction of 20% with acute exacerbation. She will be resumed on losartan upon discharge -Atrial fibrillation presently rate controlled patient will be continued on Lovenox, patient is presently rate controlled -history of DVT and pulmonary embolism in the past -Alcoholic cirrhosis although patient quit alcohol -Type 2 diabetes mellitus: Hemoglobin A1c is 6.5 not a good candidate for metformin because of his advanced cirrhosis and concern for lactic acidosis -CVA TIA in the past -Gastroesophageal reflux disease -Benign prostatic hypertrophic -Coronary artery disease
--- NOTE | 2018-04-10 10:24 | P.DS ---
Providers Date of admission: 04/06/18 23:04 Attending physician: Saad Pascal Consults: 04/07/18 09:06 Consult Physician Routine Consulting Provider: Oliverio Mc Consult Reason/Comments: right sided pleural effusion Do you want consulting provider notified?: Yes 04/07/18 09:08 Consult Physician Routine Consulting Provider: Jameel Daniels Consult Reason/Comments: CHF Do you want consulting provider notified?: Yes Primary care physician: [facility] Course: Patient was admitted secondary to volume overload from congestive heart failure and cirrhosis. Patient underwent paracentesis with removal of 3 and half liters of fluid. Patient will undergo thoracocentesis today. Patient was bit hypotensive because of which patient was transferred to ICU although we do not expect his blood pressure to be very high because of his poor ejection fraction of 20% and cirrhosis. Patient is still short of breath but bit better than yesterday. Patient's creatinine has gone up a little bit and patient is not urinating much as he just had paracentesis. 04/09/2018 Patient is still not feeling better in spite of thoracocentesis today 2 and half liters of fluid will ablate the patient if patient's saturations are good patient will be discharged. 04/10/2018 Patient will be discharged today PHYSICAL EXAMINATION: GENERAL: The patient is alert and oriented x3, not in any acute distress. Well developed, well nourished. HEENT: Pupils are round and equally reacting to light. EOMI. No scleral icterus. No conjunctival pallor. Normocephalic, atraumatic. No pharyngeal erythema. No thyromegaly. CARDIOVASCULAR: S1 and S2 present. No murmurs, rubs, or gallops. PULMONARY: And has minimally red wheezing rhonchus breath sounds. ABDOMEN: Abdomen is distended with ascites and ventral hernia, pain in the left lower quadrant improved ascites improved MUSCULOSKELETAL: No joint swelling or deformity. EXTREMITIES: No cyanosis, clubbing, or pedal edema. NEUROLOGICAL: Gross neurological examination did not reveal any focal deficits. SKIN: No rashes. Assessment and Plan Plan: -Shortness of breath secondary to right-sided pleural effusion patient will be started on Lasix 40 mg IV. Pleural effusion is multifactorial secondary to cirrhosis and heart failure. My suspicion is extremely low for parapneumonic effusion. patient has mild COPD exacerbation continue with inhaled steroids. Patient also underwent thoracocentesis with removal of 2 L of fluid. -Ascites left lower quadrant abdominal pain in spite of this left lower quadrant pain and suspicion is extremely low that patient has responded is back to peritonitis and will not require any antibiotics and is status post paracentesis. Patient is on Aldactone which will be continued. Because high risk for lactic acidosis from cirrhosis, metformin is probably not a good idea will obtain hemoglobin A1c him not sure whether patient is actually diabetic. Patient's of metformin will be discontinued upon discharge -Constipation prone now -Congestive heart failure chronic systolic dysfunction ejection fraction of 20% with acute exacerbation. She will be resumed on losartan upon discharge -Atrial fibrillation presently rate controlled patient will be continued on Lovenox, patient is presently rate controlled -history of DVT and pulmonary embolism in the past -Alcoholic cirrhosis although patient quit alcohol -Type 2 diabetes mellitus: Hemoglobin A1c is 6.5 not a good candidate for metformin because of his advanced cirrhosis and concern for lactic acidosis -CVA TIA in the past -Gastroesophageal reflux disease -Benign prostatic hypertrophic -Coronary artery disease Patient is high risk for readmission because of advanced cirrhosis ejection fraction 20% atrial fibrillation Patient Condition at Discharge: Serious Plan - Discharge Summary New Discharge Prescriptions: New Furosemide [Lasix] 40 mg PO TID #90 tablet Discontinued Losartan [Cozaar] 12.5 mg PO DAILY #30 tab metFORMIN HCL 1,000 mg PO DAILY #30 tablet No Action Ipratropium-Albuterol Nebulize [Duoneb 0.5 mg-3 mg/3 ml Soln] 3 ml INHALATION RT-QID #120 ampul.piter Metoprolol Tartrate [Lopressor] 75 mg PO BID #60 tab Pantoprazole [Protonix] 40 mg PO AC-BRKFST #30 tablet. Spironolactone [Aldactone] 25 mg PO DAILY #30 tab Albuterol Inhaler [Ventolin Hfa Inhaler] 2 puff INHALATION RT-Q4H PRN #1 puff PRN Reason: Shortness Of Breath Aspirin 81 mg PO DAILY #30 chew Cyclobenzaprine [Flexeril] 10 mg PO TID PRN #90 tab PRN Reason: Pain Enoxaparin [Lovenox] 80 mg SQ Q12H #60 syringe HYDROcodone/APAP 10-325MG [[place] 10-325] 1 tab PO Q6H #12 tab Hyoscyamine Sulfate [Hyoscyamine Sulfate SL] 0.125 mg SL Q6H PRN #30 tab.subl PRN Reason: Gi Upset Isosorbide Mononitrate ER [Imdur] 30 mg PO DAILY #30 tab.er.24h Nitroglycerin Sl Tabs [Nitrostat] 0.4 mg SUBLINGUAL Q5M PRN #100 tab PRN Reason: Chest Pain Ondansetron HCl [Zofran] 8 mg PO BID PRN #60 tablet PRN Reason: Nausea QUEtiapine [SEROquel] 25 mg PO HS #30 tab Discharge Medication List Albuterol Inhaler [Ventolin Hfa Inhaler] 2 puff INHALATION RT-Q4H PRN #1 puff [Rx] Aspirin 81 mg PO DAILY #30 chew 03/17/18 [Rx] Cyclobenzaprine [Flexeril] 10 mg PO TID PRN #90 tab 03/17/18 [Rx] Enoxaparin [Lovenox] 80 mg SQ Q12H #60 syringe 03/17/18 [Rx] HYDROcodone/APAP 10-325MG [[place] 10-325] 1 tab PO Q6H #12 tab 03/17/18 [Rx] Hyoscyamine Sulfate [Hyoscyamine Sulfate SL] 0.125 mg SL Q6H PRN #30 tab.subl [Rx] Ipratropium-Albuterol Nebulize [Duoneb 0.5 mg-3 mg/3 ml Soln] 3 ml INHALATION RT -QID #120 ampul.neb 03/17/18 [Rx] Isosorbide Mononitrate ER [Imdur] 30 mg PO DAILY #30 tab.er.24h 03/17/18 [Rx] Metoprolol Tartrate [Lopressor] 75 mg PO BID #60 tab 03/17/18 [Rx] Nitroglycerin Sl Tabs [Nitrostat] 0.4 mg SUBLINGUAL Q5M PRN #100 tab 03/17/18 [ Rx] Ondansetron HCl [Zofran] 8 mg PO BID PRN #60 tablet 03/17/18 [Rx] Pantoprazole [Protonix] 40 mg PO AC-BRKFST #30 tablet.dr 03/17/18 [Rx] QUEtiapine [SEROquel] 25 mg PO HS #30 tab 03/17/18 [Rx] Spironolactone [Aldactone] 25 mg PO DAILY #30 tab 03/17/18 [Rx] Furosemide [Lasix] 40 mg PO TID #90 tablet 04/09/18 [Rx] Follow up Appointment(s)/Referral(s): Diane Schultz MD [Primary Care Provider] - 1-2 days Patient Instructions/Handouts: A-fib (Atrial Fibrillation) (DC), Pleural Effusion (DC)
== END 2018-04-10 11:00 | disposition home or self-care (01) | DRG 292 ==
LOC: EC 16:20 → 3SCARD 23:04 → 2SICU 04-07 22:18
PROVIDERS: ADMIT Hospitalist; ATTEND Hospitalist
PROC: 0W993ZZ Drainage of Right Pleural Cavity, Percutaneous Approach (ICD-10-PCS; principal; 2018-04-07)
DX: I11.0 Hypertensive heart disease with heart failure (principal); I48.1 Persistent atrial fibrillation; J44.1 Chronic obstructive pulmonary disease with (acute) exacerbation; J98.11 Atelectasis; J90 Pleural effusion, not elsewhere classified; E11.9 Type 2 diabetes mellitus without complications; E78.5 Hyperlipidemia, unspecified; F17.210 Nicotine dependence, cigarettes, uncomplicated; F41.9 Anxiety disorder, unspecified; I08.1 Rheumatic disorders of both mitral and tricuspid valves; I25.10 Atherosclerotic heart disease of native coronary artery without angina pectoris; I25.2 Old myocardial infarction; I25.5 Ischemic cardiomyopathy; I48.2 Chronic atrial fibrillation; I50.23 Acute on chronic systolic (congestive) heart failure; K21.9 Gastro-esophageal reflux disease without esophagitis; K59.00 Constipation, unspecified; K70.31 Alcoholic cirrhosis of liver with ascites; Z79.01 Long term (current) use of anticoagulants; Z79.82 Long term (current) use of aspirin; Z79.84 Long term (current) use of oral hypoglycemic drugs; Z79.899 Other long term (current) drug therapy; Z82.49 Family history of ischemic heart disease and other diseases of the circulatory system; Z83.3 Family history of diabetes mellitus; Z85.21 Personal history of malignant neoplasm of larynx; Z86.711 Personal history of pulmonary embolism; Z86.718 Personal history of other venous thrombosis and embolism; Z86.73 Personal history of transient ischemic attack (TIA), and cerebral infarction without residual deficits; Z92.3 Personal history of irradiation; Z95.5 Presence of coronary angioplasty implant and graft; N40.0 Benign prostatic hyperplasia without lower urinary tract symptoms; Z88.5 Allergy status to narcotic agent; Z88.8 Allergy status to other drugs, medicaments and biological substances; Z79.51 Long term (current) use of inhaled steroids
CPT/HCPCS: 36415; 49083; 71045; 71046; 74018; 74022; 76604; 80053; 81001; 82150; 82550; 82553; 82945; 83036; 83605; 83615; 83690; 83880; 84157; 84484; 85025; 85027; 85610; 85730; 87040; 87070; 87205; 88108; 88305; 89050; 93005; 94640; 96374; 96375; 99285

== ENCOUNTER 2018-05-07 20:55 | Inpatient (IN) | payer OTHER ==
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
[2018-05-07 22:50] LABS: ALT 17 U/L (21-72); AST 31 U/L (17-59); Albumin 3.4 g/dL (3.5-5.0); Alkaline Phosphatase 443 U/L (38-126); Anion Gap 7 mmol/L; Blood Urea Nitrogen 19 mg/dL (9-20); Calcium 9.1 mg/dL (8.4-10.2); Carbon Dioxide 29 mmol/L (22-30); Chloride 104 mmol/L (98-107); Glucose 93 mg/dL (74-99); Lipase 28 U/L (23-300); Magnesium 1.9 mg/dL (1.6-2.3); Potassium 4.6 mmol/L (3.5-5.1); Sodium 140 mmol/L (137-145); Total Bilirubin 1.5 mg/dL (0.2-1.3); Total Protein 7.3 g/dL (6.3-8.2)
[2018-05-07 22:53] LABS: Anisocytosis Slight; Basophils % (A) 1 %; Eosinophils # (A) 0.1 k/uL (0-0.7); Eosinophils % (A) 2 %; HCT 43.3 % (39.0-53.0); HGB 12.9 gm/dL (13.0-17.5); Hypochromasia Marked; INR 1.1 (<1.2); Lymphocytes # (A) 0.4 k/uL (1.0-4.8); Lymphocytes % (A) 9 %; MCH 26.7 pg (25.0-35.0); MCHC 29.8 g/dL (31.0-37.0); MCV 89.7 fL (80.0-100.0); Mean Platelet Volume 7.5; Monocytes # (A) 0.4 k/uL (0-1.0); Monocytes % (A) 10 %; Neutrophils # (A) 3.1 k/uL (1.3-7.7); Neutrophils % (A) 75 %; Partial Thromboplastin Time 28.9 sec (22.0-30.0); Platelet Count 198 k/uL (150-450); Prothrombin Time 11.9 sec (9.0-12.0); RBC 4.83 m/uL (4.30-5.90); RDW 18.1 % (11.5-15.5); WBC 4.1 k/uL (3.8-10.6)
--- NOTE | 2018-05-07 23:02 | XR ---
EXAM: XR Chest, 2 Views CLINICAL HISTORY: Chest Pain TECHNIQUE: Frontal and lateral views of the chest. COMPARISON: 04/08/2018 FINDINGS: Lungs: Right basilar opacity. Bilateral interstitial prominence. Pleural space: Moderate right pleural effusion. No pneumothorax. Heart: Stable cardiomediastinal silhouette. Mediastinum: See above. Bones/joints: No acute osseous abnormality. IMPRESSION: Moderate right pleural effusion with adjacent atelectasis.
[2018-05-07] MEDS ORDERED: HYDROmorphone 1 MG/ML 1 ML SYRINGE IVP STA (23:27)
[2018-05-07] MEDS ORDERED: IPRATROPIUM-ALBUTEROL 3 ML NEB INHALATION STA (23:27)
[2018-05-07] MEDS ORDERED: DEXAMETHASONE SOD PHOSPHATE 10 MG/ML 1 ML VIAL IV STA (23:27)
[2018-05-07] MEDS ORDERED: FUROSEMIDE 10 MG/ML 4 ML VIAL IV STA (23:28)
[2018-05-07] MEDS ORDERED: IPRATROPIUM-ALBUTEROL 3 ML NEB INHALATION PRN (23:38)
[2018-05-08] MEDS: methylPREDNISolone SOD SUCCI 125 MG/2 ML VIAL IV SCH ×6 (01:52→23:07)
[2018-05-08 05:07] LABS: Creatine Kinase MB 4.7 ng/mL (0.0-2.4); Troponin I 0.025 ng/mL (0.000-0.034)
[2018-05-08] MEDS: HYDROmorphone 0.5 MG/0.5 ML SYRINGE IVP PRN ×5 (05:54→23:34)
[2018-05-08 06:28] LABS: Glucose,Whole Blood 138 mg/dL (75-99)
[2018-05-08] MEDS: IPRATROPIUM-ALBUTEROL 3 ML NEB INHALATION SCH ×4 (09:18→19:34)
--- NOTE | 2018-05-08 09:38 | CONS ---
CONSULTATION This patient's old chart is reviewed. This patient is known to us. The patient has a history of ischemic cardiomyopathy, cardiac cirrhosis of the liver, COPD and CAD. The patient has had refractory ascites and requires recurrent paracentesis every 3-4 weeks. The patient had last paracentesis done about 1 month ago. Patient started having abdominal distention as well as pain for last couple of days and he came to the emergency room and the patient was admitted. He denies any fever or chills. Denies any cough with expectoration. HOME MEDICATIONS: Include Flexeril, Lovenox 80 mg subcu q.12 hourly, Lopressor 75 mg b.i.d., Zofran, Protonix, Aldactone, and Lasix 40 mg t.i.d. PAST MEDICAL HISTORY: Includes a history of atrial fibrillation, ischemic cardiomyopathy, cardiac cirrhosis with recurrent ascites, prior history of myocardial infarction and multiple stents. PAST DRUG USE HISTORY: History of smoking marijuana and he is a currently everyday smoker. PHYSICAL EXAMINATION: At present reveals a 62-year-old gentleman who does not appear to be in any acute distress. In the emergency room, patient was afebrile and blood pressure was 136/78 mmHg. The patient's heart rate now is 100, blood pressure is 127/74 mmHg. HEENT examination is negative. Neck is supple. Jugular venous pressure is elevated. Both the carotid pulses are felt. There is no bruit. Chest is symmetrical. Heart the PMI is not felt. First and second heart sounds are heard. There is a short systolic murmur heard. Lungs reveal diminished air entry on both sides. Abdomen is distended. Extremities: There is a 2 to 3+ pedal edema. EKG shows evidence of atrial fibrillation with a rate of 110 and old inferior wall myocardial infarction with diffuse ST-T changes. Chest x-ray shows evidence of moderate right sided pleural effusion. FINAL IMPRESSION: 1. This patient is admitted with abdominal distention and pain secondary to marked ascites. 2. Patient has a history of ischemic cardiomyopathy with a severe right-sided heart failure and severe refractory ascites. 3. Patient also has a significant leg edema. We will recommend to continue the patient on Lasix. We will increase the Aldactone to 50 mg b.i.d. and start the patient on Zaroxolyn 5 mg daily and further adjustment in the medications will be made as necessary. MMODL / IJN: [id number] /
[2018-05-08] MEDS: FUROSEMIDE 10 MG/ML 4 ML VIAL IV SCH ×2 (11:13→20:26)
[2018-05-08] MEDS: ENOXAPARIN 80 MG/0.8 ML SYRINGE SQ SCH ×2 (11:16→20:23)
[2018-05-08 11:43] LABS: Glucose,Whole Blood 212 mg/dL (75-99)
[2018-05-08 12:09] LABS: Troponin I 0.023 ng/mL (0.000-0.034)
[2018-05-08] MEDS ORDERED: ONDANSETRON ODT 4 MG TAB PO PRN (12:59)
[2018-05-08] MEDS ORDERED: ALBUTEROL NEBULIZED 2.5 MG/3 ML INHALATION PRN (12:59)
[2018-05-08] MEDS ORDERED: HYOSCYAMINE SULFATE 0.125 MG TAB PO PRN (12:59)
[2018-05-08] MEDS ORDERED: CYCLOBENZAPRINE 10 MG TAB PO PRN (12:59)
[2018-05-08] MEDS ORDERED: NITROGLYCERIN SL TABS 0.4 MG TAB SUBLINGUAL PRN (12:59)
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
[2018-05-08] MEDS ORDERED: NON-FORMULARY DRUG (Ipratropium/Albuterol Sulfate [Combivent Respimat Inhaler] 2 PUFF) INHALATION SCH (16:00)
[2018-05-08] MEDS ORDERED: IPRATROPIUM-ALBUTEROL 3 ML NEB INHALATION SCH (16:00)
[2018-05-08] MEDS: SPIRONOLACTONE 25 MG TAB PO SCH ×2 (16:46→20:24)
[2018-05-08] MEDS: METOLAZONE 5 MG TAB PO SCH (16:48)
[2018-05-08 17:04] LABS: Glucose,Whole Blood 222 mg/dL (75-99)
[2018-05-08 20:13] LABS: Glucose,Whole Blood 165 mg/dL (75-99)
[2018-05-08] MEDS: METOPROLOL TARTRATE 25 MG TAB PO SCH (20:23)
[2018-05-08] MEDS: QUEtiapine 25 MG TAB PO SCH (20:25)
[2018-05-09] MEDS: HYDROmorphone 0.5 MG/0.5 ML SYRINGE IVP PRN ×6 (03:00→23:18)
[2018-05-09 06:51] LABS: Glucose,Whole Blood 117 mg/dL (75-99)
[2018-05-09] MEDS: IPRATROPIUM-ALBUTEROL 3 ML NEB INHALATION SCH ×4 (07:04→19:25)
[2018-05-09 08:29] LABS: Anisocytosis Slight; Basophils % (A) 0 %; Eosinophils % (A) 0 %; HCT 41.8 % (39.0-53.0); HGB 12.6 gm/dL (13.0-17.5); Hypochromasia Marked; Lymphocytes # (A) 0.4 k/uL (1.0-4.8); Lymphocytes % (A) 5 %; MCH 26.7 pg (25.0-35.0); MCHC 30.2 g/dL (31.0-37.0); MCV 88.3 fL (80.0-100.0); Mean Platelet Volume 7.5; Monocytes # (A) 0.8 k/uL (0-1.0); Monocytes % (A) 10 %; Neutrophils # (A) 6.6 k/uL (1.3-7.7); Neutrophils % (A) 82 %; Platelet Count 246 k/uL (150-450); RBC 4.73 m/uL (4.30-5.90); RDW 17.8 % (11.5-15.5)
[2018-05-09 08:50] LABS: Anion Gap 8 mmol/L; Blood Urea Nitrogen 32 mg/dL (9-20); Carbon Dioxide 33 mmol/L (22-30); Chloride 97 mmol/L (98-107); Glucose 102 mg/dL (74-99); Potassium 4.3 mmol/L (3.5-5.1); Sodium 138 mmol/L (137-145)
--- NOTE | 2018-05-09 11:16 | US ---
Therapeutic paracentesis. DATE OF EXAM: 05/09/2018 CLINICAL HISTORY: Ascites The procedure was discussed with the patient. The risks, complications, benefits, and alternatives we re discussed and any questions were answered. Informed consent was obtained. The patient was placed s upine on the ultrasound table and prepped and draped in the usual sterile fashion. All elements of maximal barrier technique were utilized. Under ultrasound guidance, access into the right lower quadrant was obtained, via the paracentesis catheter system and direct ultrasound guidanc e. Approximately 2.6 liters of straw-colored fluid was removed. The patient was stable throughout the pr ocedure and remained stable upon discharge from Department of Radiology. IMPRESSION: Successful therapeutic paracentesis under ultrasound guidance.
[2018-05-09] MEDS: ISOSORBIDE MONONITRATE ER 30 MG TAB.ER.24H PO SCH (11:34)
[2018-05-09] MEDS: METOPROLOL TARTRATE 25 MG TAB PO SCH ×3 (11:34→23:38)
[2018-05-09] MEDS: SPIRONOLACTONE 25 MG TAB PO SCH ×2 (11:34→23:36)
[2018-05-09] MEDS: PANTOPRAZOLE 40 MG TABLET PO SCH (11:34)
[2018-05-09] MEDS: ASPIRIN 81 MG PO SCH (11:34)
[2018-05-09] MEDS: FUROSEMIDE 10 MG/ML 4 ML VIAL IV SCH ×2 (11:35→23:36)
[2018-05-09] MEDS: LOSARTAN 25 MG TAB PO SCH (11:35)
[2018-05-09 11:52] LABS: Glucose,Whole Blood 94 mg/dL (75-99)
[2018-05-09] MEDS: METOLAZONE 5 MG TAB PO SCH (12:09)
[2018-05-09] MEDS: methylPREDNISolone SOD SUCCI 125 MG/2 ML VIAL IV SCH ×3 (12:09→23:43)
--- NOTE | 2018-05-09 12:10 | P.PN ---
Subjective This is a pleasant 62-year-old male past medical history significant for ischemic cardiomyopathy, chronic cirrhosis of liver, COPD and coronary artery disease. He follows in the office with Dr. Mayers. He has refractory ascites and requires recurrent paracentesis. He presented to the hospital with symptoms of chest discomfort, abdominal distention and lower extremity edema. He is scheduled to undergo an ultrasound-guided paracentesis this morning. He seen and examined sitting up on the edge of the bed in mild respiratory distress. He continues to feel a pressure in his chest secondary to abdominal distension, he states it feels like his stomach is pushing up and crowding his lungs. He was started yesterday on IV Lasix and Zaroxolyn as well as increasing Aldactone. Laboratory data reviewed, WBC 8, hemoglobin 12.6, platelets 246, sodium 138, potassium 4.3, creatinine 0.85. Blood pressure 117/79 heart rate 68 afebrile maintaining oxygen saturation on nasal cannula. GENERAL: Well-appearing, well-nourished and in mild respiratory distress. NECK: Supple with elevated JVD. LUNGS: Breath sounds clear to auscultation bilaterally. Respiration equal and unlabored. No wheezes, rales or rhonchi. Diminished bilaterally. HEART: Regular rate and rhythm with systolic ejection murmur at the left sternal border, no rubs or gallops. S1 and S2 heard. EXTREMITIES: Normal range of motion, trace lower extremity edema. No clubbing or cyanosis. Peripheral pulses intact. ASSESSMENT Ascites, significant and recurrent Acute on chronic systolic heart failure History of ischemic cardiomyopathy, EF 20-25% Chronic persistent atrial fibrillation History of coronary artery disease s/p angioplasty Valvular heart disease Pulmonary hypertension COPD Chronic nicotine dependence PLAN Proceed with paracentesis as planned. Continue current medical regimen. Monitor blood pressure closely after paracentesis. Further recommendations to follow based on clinical course. Recommend smoking cessation. Nurse Practitioner note has been reviewed, I agree with a documented findings and plan of care. Patient was seen and examined. Objective - Vital Signs Vital signs: Vital Signs Temp 97.4 F L 05/09/18 08:00 Pulse 76 05/09/18 10:42 Resp 18 05/09/18 11:00 BP 97/58 05/09/18 11:00 Pulse Ox 96 05/09/18 11:00 Intake & Output 05/08/18 05/09/18 05/09/18 18:59 06:59 18:59 Intake Total 375 Balance 375 Weight 81 kg Intake: Oral 375 Other: Voiding Method Toilet Toilet Urinal Urinal # Voids 2 0 - Labs CBC & Chem 7: 05/09/18 07:35 05/09/18 07:35 Labs: Abnormal Lab Results - Last 24 Hours (Table) 05/08/18 05/08/18 05/08/18 Range/Units 10:34 16:58 20:09 Hgb (13.0-17.5) gm/dL MCHC (31.0-37.0) g/dL RDW (11.5-15.5) % Lymphocytes # (1.0-4.8) k/uL Chloride (98-107) mmol/L Carbon Dioxide (22-30) mmol/L BUN (9-20) mg/dL Glucose (74-99) mg/dL POC Glucose (mg/dL) 222 H 165 H (75-99) mg/dL CK-MB (CK-2) 5.0 H (0.0-2.4) ng/mL 05/09/18 05/09/18 05/09/18 Range/Units 06:49 07:35 07:35 Hgb 12.6 L (13.0-17.5) gm/dL MCHC 30.2 L (31.0-37.0) g/dL RDW 17.8 H (11.5-15.5) % Lymphocytes # 0.4 L (1.0-4.8) k/uL Chloride 97 L (98-107) mmol/L Carbon Dioxide 33 H (22-30) mmol/L BUN 32 H (9-20) mg/dL Glucose 102 H (74-99) mg/dL POC Glucose (mg/dL) 117 H (75-99) mg/dL CK-MB (CK-2) (0.0-2.4) ng/mL
[2018-05-09 15:35] VITALS: BMI 27.9
[2018-05-09 17:28] LABS: Glucose,Whole Blood 111 mg/dL (75-99)
[2018-05-09 20:49] LABS: Glucose,Whole Blood 148 mg/dL (75-99)
[2018-05-09] MEDS: QUEtiapine 25 MG TAB PO SCH (23:37)
--- NOTE | 2018-05-10 01:18 | P.PN ---
Subjective Progress Note Date: 05/09/18 Principal diagnosis: Ac exac CHF Recurrent Ascities He is scheduled to undergo an ultrasound-guided paracentesis this morning. He seen and examined sitting up on the edge of the bed in mild respiratory distress. He continues to feel a pressure in his chest secondary to abdominal distension, he states it feels like his stomach is pushing up and crowding his lungs. He was started yesterday on IV Lasix and Zaroxolyn as well as increasing Aldactone. Laboratory data reviewed, WBC 8, hemoglobin 12.6, platelets 246, sodium 138, potassium 4.3, creatinine 0.85. Blood pressure 117/79 heart rate 68 afebrile maintaining oxygen saturation on nasal cannula. Objective - Vital Signs Vital signs: Vital Signs Temp 97.4 F L 05/09/18 08:00 Pulse 68 05/09/18 08:00 Resp 18 05/09/18 08:00 BP 117/79 05/09/18 08:00 Pulse Ox 98 05/09/18 08:00 Intake & Output 05/08/18 05/09/18 05/09/18 18:59 06:59 18:59 Intake Total 375 Balance 375 Weight 81 kg Intake: Oral 375 Other: Voiding Method Toilet Toilet Urinal Urinal # Voids 2 0 - Exam GENERAL: Well-appearing, well-nourished and in mild respiratory distress. NECK: Supple with elevated JVD. LUNGS: Breath sounds clear to auscultation bilaterally. Respiration equal and unlabored. No wheezes, rales or rhonchi. Diminished bilaterally. HEART: Regular rate and rhythm with systolic ejection murmur at the left sternal border, no rubs or gallops. S1 and S2 heard. EXTREMITIES: Normal range of motion, trace lower extremity edema. No clubbing or cyanosis. Peripheral pulses intact. - Labs CBC & Chem 7: 05/09/18 07:35 05/09/18 07:35 Labs: Abnormal Lab Results - Last 24 Hours (Table) 05/08/18 05/08/18 05/08/18 Range/Units 10:34 11:42 16:58 Hgb (13.0-17.5) gm/dL MCHC (31.0-37.0) g/dL RDW (11.5-15.5) % Lymphocytes # (1.0-4.8) k/uL Chloride (98-107) mmol/L Carbon Dioxide (22-30) mmol/L BUN (9-20) mg/dL Glucose (74-99) mg/dL POC Glucose (mg/dL) 212 H 222 H (75-99) mg/dL CK-MB (CK-2) 5.0 H (0.0-2.4) ng/mL 05/08/18 05/09/18 05/09/18 Range/Units 20:09 06:49 07:35 Hgb 12.6 L (13.0-17.5) gm/dL MCHC 30.2 L (31.0-37.0) g/dL RDW 17.8 H (11.5-15.5) % Lymphocytes # 0.4 L (1.0-4.8) k/uL Chloride (98-107) mmol/L Carbon Dioxide (22-30) mmol/L BUN (9-20) mg/dL Glucose (74-99) mg/dL POC Glucose (mg/dL) 165 H 117 H (75-99) mg/dL CK-MB (CK-2) (0.0-2.4) ng/mL 05/09/18 Range/Units 07:35 Hgb (13.0-17.5) gm/dL MCHC (31.0-37.0) g/dL RDW (11.5-15.5) % Lymphocytes # (1.0-4.8) k/uL Chloride 97 L (98-107) mmol/L Carbon Dioxide 33 H (22-30) mmol/L BUN 32 H (9-20) mg/dL Glucose 102 H (74-99) mg/dL POC Glucose (mg/dL) (75-99) mg/dL CK-MB (CK-2) (0.0-2.4) ng/mL Assessment and Plan Assessment: 1. Chest pain - we will admit patient to telemetry for close cardiac monitoring and EKG; trend troponin - Consult cardiology for further recommendations 2. Dyspnea; multifactorial - Pleural effusion versus ascites versus COPD - Patient is seen by cardiology and diuretic therapy has been escalated - We will monitor strict MICHELLE's, daily weights, renal function and electrolytes 3. Recurrent abdominal ascites; consult interventional radiology for therapeutic paracentesis 4. COPD exacerbation - DuoNeb nebulizer treatments 4 times a day and when necessary - Start patient on Solu-Medrol 60 mg IV every 6 hours 5. Congestive heart failure/ischemic cardiomyopathy; fluid overload - patient started on subcu Lovenox; Aldactone escalated to 50 mg twice a day along with Lasix 40 mg every 12 hours - Continue patient on aspirin, beta blockers, statin therapy 6. DVT prophylaxis; Systemic anticoagulation CODE STATUS; full code Time with Patient: Greater than 30
[2018-05-10] MEDS: HYDROmorphone 0.5 MG/0.5 ML SYRINGE IVP PRN ×4 (03:03→13:55)
[2018-05-10] MEDS: methylPREDNISolone SOD SUCCI 125 MG/2 ML VIAL IV SCH ×2 (05:38→12:26)
[2018-05-10 07:15] LABS: Glucose,Whole Blood 150 mg/dL (75-99)
[2018-05-10] MEDS: FUROSEMIDE 10 MG/ML 4 ML VIAL IV SCH ×2 (08:03→23:17)
[2018-05-10] MEDS: IPRATROPIUM-ALBUTEROL 3 ML NEB INHALATION SCH ×4 (08:20→20:26)
[2018-05-10] MEDS: ENOXAPARIN 80 MG/0.8 ML SYRINGE SQ SCH ×2 (09:22→22:59)
[2018-05-10] MEDS: PANTOPRAZOLE 40 MG TABLET PO SCH (09:22)
[2018-05-10] MEDS: ASPIRIN 81 MG PO SCH (09:22)
[2018-05-10] MEDS: ISOSORBIDE MONONITRATE ER 30 MG TAB.ER.24H PO SCH (09:23)
[2018-05-10] MEDS: METOPROLOL TARTRATE 25 MG TAB PO SCH ×2 (09:30→23:07)
[2018-05-10] MEDS: SPIRONOLACTONE 25 MG TAB PO SCH ×2 (09:31→23:06)
[2018-05-10] MEDS: METOLAZONE 5 MG TAB PO SCH (09:31)
[2018-05-10 09:32] LABS: Anisocytosis Slight; Basophils % (A) 0 %; Eosinophils # (A) 0.1 k/uL (0-0.7); Eosinophils % (A) 1 %; HCT 46.6 % (39.0-53.0); HGB 13.7 gm/dL (13.0-17.5); Hypochromasia Marked; Lymphocytes # (A) 0.4 k/uL (1.0-4.8); Lymphocytes % (A) 6 %; MCH 26.3 pg (25.0-35.0); MCHC 29.5 g/dL (31.0-37.0); MCV 89.1 fL (80.0-100.0); Mean Platelet Volume 6.9; Monocytes # (A) 0.5 k/uL (0-1.0); Monocytes % (A) 7 %; Neutrophils # (A) 6.3 k/uL (1.3-7.7); Neutrophils % (A) 85 %; Platelet Count 288 k/uL (150-450); RBC 5.23 m/uL (4.30-5.90); RDW 17.7 % (11.5-15.5); WBC 7.4 k/uL (3.8-10.6)
[2018-05-10 10:01] LABS: Anion Gap 11 mmol/L; Blood Urea Nitrogen 47 mg/dL (9-20); Calcium 9.4 mg/dL (8.4-10.2); Carbon Dioxide 34 mmol/L (22-30); Chloride 90 mmol/L (98-107); Glucose 160 mg/dL (74-99); Potassium 4.6 mmol/L (3.5-5.1); Sodium 135 mmol/L (137-145)
[2018-05-10] MEDS: LOSARTAN 25 MG TAB PO SCH (10:36)
[2018-05-10 11:05] LABS: Glucose,Whole Blood 147 mg/dL (75-99)
--- NOTE | 2018-05-10 13:27 | P.PN ---
Subjective Progress Note Date: 05/10/18 Principal diagnosis: Congestive heart failure secondary to systolic dysfunction This is a pleasant 62-year-old gentleman with a past medical history significant for coronary artery disease, ischemic cardiomyopathy, chronic atrial fibrillation on anticoagulation, and cirrhosis of the liver, was admitted to the hospital with congestive heart failure. He underwent paracentesis yesterday. On follow-up with him today, he continues not feeling well. He stated that he is more short of breath today. 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 He continues to be on Lasix IV at this point. I did recommend keeping the patient on Lasix IV for additional 24 hours and continue monitor the kidney function and electrolytes and follow-up with him. Beside that I did recommend changing the Dilaudid because the patient seems to be slightly confused after he received his pain medication with Dilaudid. Objective - Vital Signs Vital signs: Vital Signs Temp 97.5 F L 05/10/18 07:13 Pulse 65 05/10/18 11:41 Resp 16 05/10/18 07:13 BP 108/72 05/10/18 07:13 Pulse Ox 96 05/10/18 07:13 Intake & Output 05/09/18 05/10/18 05/10/18 18:59 06:59 18:59 Intake Total 200 860 240 Output Total 300 Balance 200 560 240 Weight 81 kg 76 kg Intake: Oral 200 860 240 Output: Urine 300 Other: Voiding Method Toilet Toilet Urinal Urinal # Voids 1 2 - Constitutional General appearance: Present: no acute distress - Respiratory Respiratory: bilateral: diminished - Cardiovascular Rhythm: irregularly irregular Heart sounds: normal: S1, S2 - Labs CBC & Chem 7: 05/10/18 09:02 05/10/18 09:02 Labs: Abnormal Lab Results - Last 24 Hours (Table) 05/09/18 05/09/18 05/10/18 Range/Units 17:25 20:30 07:14 MCHC (31.0-37.0) g/dL RDW (11.5-15.5) % Lymphocytes # (1.0-4.8) k/uL Sodium (137-145) mmol/L Chloride (98-107) mmol/L Carbon Dioxide (22-30) mmol/L BUN (9-20) mg/dL Glucose (74-99) mg/dL POC Glucose (mg/dL) 111 H 148 H 150 H (75-99) mg/dL 05/10/18 05/10/18 05/10/18 Range/Units 09:02 09:02 11:03 MCHC 29.5 L (31.0-37.0) g/dL RDW 17.7 H (11.5-15.5) % Lymphocytes # 0.4 L (1.0-4.8) k/uL Sodium 135 L (137-145) mmol/L Chloride 90 L (98-107) mmol/L Carbon Dioxide 34 H (22-30) mmol/L BUN 47 H (9-20) mg/dL Glucose 160 H (74-99) mg/dL POC Glucose (mg/dL) 147 H (75-99) mg/dL Assessment and Plan Assessment: Assessment #1 recurrent ascites #2 congestive heart failure exacerbation secondary to systolic dysfunction #3 ischemic cardiomyopathy with known EF of 20-25% #4 coronary artery disease #5 valvular heart disease #6 multiple comorbid conditions Plan #1 I recommended continue the IV Lasix for additional 24 hours #2 continue monitor the kidney function and electrolytes #3 follow-up with the patient.
[2018-05-10] MEDS ORDERED: traMADol 50 MG TAB PO PRN (15:15)
[2018-05-10 17:09] LABS: Glucose,Whole Blood 106 mg/dL (75-99)
[2018-05-10 20:14] LABS: Glucose,Whole Blood 135 mg/dL (75-99)
[2018-05-10] MEDS: QUEtiapine 25 MG TAB PO SCH (23:08)
[2018-05-11 07:04] LABS: Glucose,Whole Blood 121 mg/dL (75-99)
[2018-05-11] MEDS: IPRATROPIUM-ALBUTEROL 3 ML NEB INHALATION SCH ×2 (07:32→10:55)
[2018-05-11] MEDS: ASPIRIN 81 MG PO SCH (08:34)
[2018-05-11] MEDS: PANTOPRAZOLE 40 MG TABLET PO SCH (08:34)
[2018-05-11] MEDS: ISOSORBIDE MONONITRATE ER 30 MG TAB.ER.24H PO SCH (08:34)
[2018-05-11] MEDS: METOPROLOL TARTRATE 25 MG TAB PO SCH (08:34)
[2018-05-11] MEDS: SPIRONOLACTONE 25 MG TAB PO SCH (08:34)
[2018-05-11] MEDS: LOSARTAN 25 MG TAB PO SCH (08:35)
[2018-05-11] MEDS: FUROSEMIDE 10 MG/ML 4 ML VIAL IV SCH (08:35)
[2018-05-11] MEDS: ENOXAPARIN 80 MG/0.8 ML SYRINGE SQ SCH (08:35)
[2018-05-11] MEDS: METOLAZONE 5 MG TAB PO SCH (08:36)
[2018-05-11] MEDS ORDERED: predniSONE 20 MG TAB PO SCH (09:00)
[2018-05-11 09:07] LABS: Anisocytosis Slight; Basophils % (A) 0 %; Eosinophils # (A) 0.1 k/uL (0-0.7); Eosinophils % (A) 2 %; HCT 39.9 % (39.0-53.0); HGB 12.1 gm/dL (13.0-17.5); Hypochromasia Marked; Lymphocytes # (A) 0.6 k/uL (1.0-4.8); Lymphocytes % (A) 11 %; MCH 26.7 pg (25.0-35.0); MCHC 30.4 g/dL (31.0-37.0); Mean Platelet Volume 6.9; Monocytes # (A) 0.6 k/uL (0-1.0); Monocytes % (A) 11 %; Neutrophils # (A) 4.2 k/uL (1.3-7.7); Neutrophils % (A) 74 %; Platelet Count 238 k/uL (150-450); RBC 4.54 m/uL (4.30-5.90); RDW 17.8 % (11.5-15.5); WBC 5.7 k/uL (3.8-10.6)
[2018-05-11 09:41] LABS: Anion Gap 9 mmol/L; Blood Urea Nitrogen 48 mg/dL (9-20); Calcium 8.7 mg/dL (8.4-10.2); Carbon Dioxide 31 mmol/L (22-30); Chloride 95 mmol/L (98-107); Glucose 93 mg/dL (74-99); Potassium 4.1 mmol/L (3.5-5.1); Sodium 135 mmol/L (137-145)
[2018-05-11 11:03] LABS: Glucose,Whole Blood 135 mg/dL (75-99)
[2018-05-11 11:44] VITALS: BP 97/60; PULSE 60; RESP 15; TEMP 97.9
--- NOTE | 2018-05-11 13:47 | P.PN ---
Subjective This is a pleasant 62-year-old male past medical history significant for ischemic cardiomyopathy, chronic cirrhosis of liver, COPD and coronary artery disease. He follows in the office with Dr. Mayers. He has refractory ascites and requires recurrent paracentesis. He underwent paracentesis with removal of over 2 liters. He is seen and examined laying flat in bed in no acute distress. He continues to have mild shortness of breath as a baseline that he states is normal for him. He denies chest pain, dizziness or palpitations. GENERAL: Well-appearing, well-nourished and in mild respiratory distress. NECK: Supple with elevated JVD. LUNGS: Breath sounds clear to auscultation bilaterally. Respiration equal and unlabored. No wheezes, rales or rhonchi. Diminished bilaterally. HEART: Regular rate and rhythm with systolic ejection murmur at the left sternal border, no rubs or gallops. S1 and S2 heard. EXTREMITIES: Normal range of motion, trace lower extremity edema. No clubbing or cyanosis. Peripheral pulses intact. ASSESSMENT Ascites, significant and recurrent Acute on chronic systolic heart failure History of ischemic cardiomyopathy, EF 20-25% Chronic persistent atrial fibrillation History of coronary artery disease s/p angioplasty Valvular heart disease Pulmonary hypertension COPD Chronic nicotine dependence PLAN Stable from a cardiac perspective. Transition to PO diuretics. Follow up with Dr. Mayers upon discharge. Nurse Practitioner note has been reviewed, I agree with a documented findings and plan of care. Patient was seen and examined. Objective - Vital Signs Vital signs: Vital Signs Temp 97.9 F 05/11/18 11:29 Pulse 60 05/11/18 11:29 Resp 15 05/11/18 11:29 BP 97/60 05/11/18 11:29 Pulse Ox 99 05/11/18 11:29 Intake & Output 05/10/18 05/11/18 05/11/18 18:59 06:59 18:59 Intake Total 720 720 Balance 720 720 Weight 76 kg 75 kg Intake: Oral 720 720 Other: Voiding Method Toilet Toilet Urinal Urinal # Voids 3 1 - Labs CBC & Chem 7: 05/11/18 07:17 05/11/18 07:17 Labs: Abnormal Lab Results - Last 24 Hours (Table) 05/10/18 05/10/18 05/11/18 Range/Units 17:08 20:13 07:02 Hgb (13.0-17.5) gm/dL MCHC (31.0-37.0) g/dL RDW (11.5-15.5) % Lymphocytes # (1.0-4.8) k/uL Sodium (137-145) mmol/L Chloride (98-107) mmol/L Carbon Dioxide (22-30) mmol/L BUN (9-20) mg/dL POC Glucose (mg/dL) 106 H 135 H 121 H (75-99) mg/dL 05/11/18 05/11/18 05/11/18 Range/Units 07:17 07:17 11:02 Hgb 12.1 L (13.0-17.5) gm/dL MCHC 30.4 L (31.0-37.0) g/dL RDW 17.8 H (11.5-15.5) % Lymphocytes # 0.6 L (1.0-4.8) k/uL Sodium 135 L (137-145) mmol/L Chloride 95 L (98-107) mmol/L Carbon Dioxide 31 H (22-30) mmol/L BUN 48 H (9-20) mg/dL POC Glucose (mg/dL) 135 H (75-99) mg/dL
--- NOTE | 2018-05-11 22:39 | P.PN ---
Subjective Progress Note Date: 05/10/18 Interval history: This is 62-year-old gentleman admitted with acute exacerbation of CHF, recurrent ascites, status post paracentesis with over 2 L drained and multiple other medical issues. Diuresing on IV push Lasix, Zaroxolyn, Aldactone, but complains of shortness of breath with pedal edema. Mildly confused, receiving Dilaudid IV push. Objective - Vital Signs Vital signs: Vital Signs Temp 97.5 F L 05/10/18 07:13 Pulse 68 05/10/18 08:31 Resp 16 05/10/18 07:13 BP 108/72 05/10/18 07:13 Pulse Ox 96 05/10/18 07:13 Intake & Output 05/09/18 05/10/18 05/10/18 18:59 06:59 18:59 Intake Total 200 860 240 Output Total 300 Balance 200 560 240 Weight 81 kg 76 kg Intake: Oral 200 860 240 Output: Urine 300 Other: Voiding Method Toilet Toilet Urinal Urinal # Voids 1 2 - Exam GENERAL: Sitting up in bed, alert and oriented 3, mild respiratory distress. NECK: Supple with elevated JVD. LUNGS: Breath sounds clear to auscultation bilaterally. Respiration equal and unlabored. No wheezes, rales or rhonchi. Diminished bilaterally. HEART: Regular S1, S2, irregular, systolic ejection murmur at the left sternal border, no rubs or gallops. S1 and S2 heard. ABD: Soft, distended, nontender, positive bowel sounds. EXTREMITIES: Normal range of motion, trace lower extremity edema. No clubbing or cyanosis. Peripheral pulses intact. NEURO: No focal deficits noted - Labs CBC & Chem 7: 05/11/18 07:17 05/11/18 07:17 Labs: Abnormal Lab Results - Last 24 Hours (Table) 05/09/18 05/09/18 05/09/18 Range/Units 07:35 17:25 20:30 Chloride 97 L (98-107) mmol/L Carbon Dioxide 33 H (22-30) mmol/L BUN 32 H (9-20) mg/dL Glucose 102 H (74-99) mg/dL POC Glucose (mg/dL) 111 H 148 H (75-99) mg/dL 05/10/18 Range/Units 07:14 Chloride (98-107) mmol/L Carbon Dioxide (22-30) mmol/L BUN (9-20) mg/dL Glucose (74-99) mg/dL POC Glucose (mg/dL) 150 H (75-99) mg/dL Assessment and Plan Assessment: -Recurrent ascites, status post paracentesis -Acute on chronic systolic heart failure, EF 20-25%. Ischemic cardiomyopathy. -Chronic persistent atrial fibrillation -Pulmonary hypertension -Valvular heart disease -CAD -Chronic nicotine dependence -COPD Plan: Continue on current medication regime ,monitoring and symptomatic treatment. Maintain diuresing with IV push Lasix as patient continues to have significant peripheral edema, shortness of breath. Close monitoring of renal function, electrolyte with repeat labs ordered for a.m. Continue on nebulized bronchodilators, beta mayelin, statin, aspirin. DC IV push Dilaudid, Ultram added for pain management. Discharge planning in progress for tomorrow pending cardiology clearance. The impression and plan of care has been dictated as directed. : I performed a history and examination of this patient, discussed the same with the dictator. I agree with the dictator's note ,documented as a scribe. Any additional findings or plans will be noted.
--- NOTE | 2018-05-11 22:55 | P.DS ---
Providers Date of admission: 05/09/18 09:18 Expected date of discharge: 05/11/18 Attending physician: Saad Thakkar Consults: 05/08/18 07:25 Consult Physician Routine Consulting Provider: Jameel Daniels Consult Reason/Comments: chest pain Do you want consulting provider notified?: Yes Primary care physician: [facility] Course: Final Diagnoses: -Recurrent ascites, status post paracentesis -Acute on chronic systolic heart failure, EF 20-25%. Ischemic cardiomyopathy. -Chronic persistent atrial fibrillation -Pulmonary hypertension -Valvular heart disease -CAD -Chronic nicotine dependence -COPD Hospital course:This is a 62-year-old gentleman admitted with acute exacerbation of CHF, recurrent ascites, status post therapeutic paracentesis with over 2 L drained and multiple other medical issues. Evaluated by cardiology. Diuresed well on IV push Lasix, Zaroxolyn, increased Aldactone. Weaned off oxygen. Significant clinical improvement. Cleared by cardiology for discharge. Smoking cessation reinforced. Patient is being discharged home in a stable condition with guarded prognosis. Exam GENERAL: alert and oriented 3, no acute distress LUNGS: Bilateral bases diminished. Respiration equal and unlabored. HEART: Regular S1, S2, irregular, systolic ejection murmur at the left sternal border, no rubs or gallops. S1 and S2 heard. ABD: Soft, distended, nontender, positive bowel sounds. NEURO: No focal deficits noted The impression and plan of care has been dictated as directed. : I performed a history and examination of this patient, discussed the same with the dictator. I agree with the dictator's note ,documented as a scribe. Any additional findings or plans will be noted. Time taken: 35 minutes Patient Condition at Discharge: Stable Plan - Discharge Summary Discharge Rx Participant: No New Discharge Prescriptions: New Metolazone [Zaroxolyn] 5 mg PO DAILY #30 tab Spironolactone [Aldactone] 50 mg PO BID #120 tab traMADol HCl [Ultram] 50 mg PO Q6H PRN #12 tab PRN Reason: Pain Continue Ipratropium-Albuterol Nebulize [Duoneb 0.5 mg-3 mg/3 ml Soln] 3 ml INHALATION RT-QID #120 ampul.neb Metoprolol Tartrate [Lopressor] 75 mg PO BID #60 tab Pantoprazole [Protonix] 40 mg PO AC-BRKFST #30 tablet.dr Albuterol Inhaler [Ventolin Hfa Inhaler] 2 puff INHALATION RT-Q4H PRN #1 puff PRN Reason: Shortness Of Breath Aspirin 81 mg PO DAILY #30 chew Cyclobenzaprine [Flexeril] 10 mg PO TID PRN #90 tab PRN Reason: Pain Enoxaparin [Lovenox] 80 mg SQ Q12H #60 syringe Hyoscyamine Sulfate [Hyoscyamine Sulfate SL] 0.125 mg SL Q6H PRN #30 tab.subl PRN Reason: Gi Upset Isosorbide Mononitrate ER [Imdur] 30 mg PO DAILY #30 tab.er.24h Nitroglycerin Sl Tabs [Nitrostat] 0.4 mg SUBLINGUAL Q5M PRN #100 tab PRN Reason: Chest Pain metFORMIN HCL [Glucophage] 500 mg PO DAILY Ipratropium/Albuterol Sulfate [Combivent Respimat Inhaler] 2 puff INHALATION RT-QID Ondansetron Odt [Zofran ODT] 4 mg SL BID PRN PRN Reason: Nausea Losartan [Cozaar] 12.5 mg PO DAILY QUEtiapine [SEROquel] 25 mg PO HS Changed Furosemide [Lasix] 40 mg PO BID #60 tablet Discontinued Spironolactone [Aldactone] 25 mg PO DAILY #30 tab Discharge Medication List Albuterol Inhaler [Ventolin Hfa Inhaler] 2 puff INHALATION RT-Q4H PRN #1 puff [Rx] Aspirin 81 mg PO DAILY #30 chew 03/17/18 [Rx] Cyclobenzaprine [Flexeril] 10 mg PO TID PRN #90 tab 03/17/18 [Rx] Enoxaparin [Lovenox] 80 mg SQ Q12H #60 syringe 03/17/18 [Rx] Hyoscyamine Sulfate [Hyoscyamine Sulfate SL] 0.125 mg SL Q6H PRN #30 tab.subl [Rx] Ipratropium-Albuterol Nebulize [Duoneb 0.5 mg-3 mg/3 ml Soln] 3 ml INHALATION RT -QID #120 ampul.neb 03/17/18 [Rx] Isosorbide Mononitrate ER [Imdur] 30 mg PO DAILY #30 tab.er.24h 03/17/18 [Rx] Metoprolol Tartrate [Lopressor] 75 mg PO BID #60 tab 03/17/18 [Rx] Nitroglycerin Sl Tabs [Nitrostat] 0.4 mg SUBLINGUAL Q5M PRN #100 tab 03/17/18 [ Rx] Pantoprazole [Protonix] 40 mg PO AC-BRKFST #30 tablet.dr 03/17/18 [Rx] Ipratropium/Albuterol Sulfate [Combivent Respimat Inhaler] 2 puff INHALATION RT- QID 05/08/18 [History] Losartan [Cozaar] 12.5 mg PO DAILY 05/08/18 [History] Ondansetron Odt [Zofran ODT] 4 mg SL BID PRN 05/08/18 [History] QUEtiapine [SEROquel] 25 mg PO HS 05/08/18 [History] metFORMIN HCL [Glucophage] 500 mg PO DAILY 05/08/18 [History] Furosemide [Lasix] 40 mg PO BID #60 tablet 05/11/18 [Rx] Metolazone [Zaroxolyn] 5 mg PO DAILY #30 tab 05/11/18 [Rx] Spironolactone [Aldactone] 50 mg PO BID #120 tab 05/11/18 [Rx] traMADol HCl [Ultram] 50 mg PO Q6H PRN #12 tab 05/11/18 [Rx] Follow up Appointment(s)/Referral(s): Diane Schultz MD [Primary Care Provider] - 3 Days Maria Victoria Mayers MD [STAFF PHYSICIAN] - 2 Weeks Ambulatory/Diagnostic Orders: Complete Blood Count w/diff [LAB.AMB] Time Frame: 3 Days, Location: None Selected Patient Instructions/Handouts: Heart Failure (DC), Chest Pain (DC), COPD ( Chronic Obstructive Pulmonary Disease) (DC) Activity/Diet/Wound Care/Special Instructions: confirm cardiology F/U apt. prior to dc No smoking Discharge Disposition: HOME SELF-CARE
== END 2018-05-11 15:05 | disposition home or self-care (01) | DRG 292 ==
LOC: EC 20:55 → 3SCARD 23:38 → 1SOBS 05-08 07:57 → OBSVTOIN 05-09 09:18 → 3NMEDONC 05-09 15:17
PROVIDERS: ADMIT Hospitalist; ATTEND Hospitalist
PROC: 0W9G3ZZ Drainage of Peritoneal Cavity, Percutaneous Approach (ICD-10-PCS; principal; 2018-05-09)
DX: I50.23 Acute on chronic systolic (congestive) heart failure (principal); R18.8 Other ascites; I48.1 Persistent atrial fibrillation; J44.1 Chronic obstructive pulmonary disease with (acute) exacerbation; I25.5 Ischemic cardiomyopathy; I27.20 Pulmonary hypertension, unspecified; I25.10 Atherosclerotic heart disease of native coronary artery without angina pectoris; N42.9 Disorder of prostate, unspecified; F17.210 Nicotine dependence, cigarettes, uncomplicated; F41.9 Anxiety disorder, unspecified; K43.9 Ventral hernia without obstruction or gangrene; K74.60 Unspecified cirrhosis of liver; E11.9 Type 2 diabetes mellitus without complications; I50.812 Chronic right heart failure; G89.29 Other chronic pain; K21.9 Gastro-esophageal reflux disease without esophagitis; Z86.711 Personal history of pulmonary embolism; Z71.6 Tobacco abuse counseling; Z86.73 Personal history of transient ischemic attack (TIA), and cerebral infarction without residual deficits; Z85.21 Personal history of malignant neoplasm of larynx; Z92.3 Personal history of irradiation; I25.2 Old myocardial infarction; Z86.19 Personal history of other infectious and parasitic diseases; Z95.5 Presence of coronary angioplasty implant and graft; Z79.82 Long term (current) use of aspirin; Z79.899 Other long term (current) drug therapy; Z79.01 Long term (current) use of anticoagulants; Z79.4 Long term (current) use of insulin; Z88.5 Allergy status to narcotic agent; Z88.8 Allergy status to other drugs, medicaments and biological substances; Z82.49 Family history of ischemic heart disease and other diseases of the circulatory system; Z83.3 Family history of diabetes mellitus; Z98.61 Coronary angioplasty status
CPT/HCPCS: 36415; 49083; 71046; 80048; 80053; 82140; 82553; 83690; 83735; 83880; 84484; 85025; 85610; 85730; 93005; 94640; 96374; 96375; 99285

== ENCOUNTER 2018-06-01 08:47 | Day surgery (SDC) | payer OTHER ==
[2018-06-01 09:48] LABS: Mean Platelet Volume 6.6; Platelet Count 264 k/uL (150-450)
[2018-06-01 09:55] LABS: Glucose 84 mg/dL (74-99)
[2018-06-01 10:02] VITALS: TEMP 98
[2018-06-01 10:17] LABS: INR 1.2 (<1.2); Prothrombin Time 12.4 sec (9.0-12.0)
[2018-06-01 10:45] VITALS: RESP 18
[2018-06-01 11:30] VITALS: BP 132/76; PULSE 76
--- NOTE | 2018-06-01 15:39 | US ---
EXAMINATION TYPE: US paracentesis abd w/image DATE OF EXAM: 06/01/2018 COMPARISON: NONE HISTORY: Ascites. PROCEDURE: Maximal barrier technique was utilized. The skin overlying a suitable pocket of fluid was localized with ultrasound and the overlying skin was prepped and draped. Ultrasound was utilized with sterile technique. Lidocaine was used for local anesthesia and a skin gilbert made with a scalpel. Catheter was advanced under direct ultrasound guidance into a suitable pocket of fluid and approximately 2.8 liter s of leslye fluid were removed. Catheter was withdrawn and hemostasis achieved. There is no immediat e complication; the patient is discharged in stable condition. IMPRESSION: STATUS POST ULTRASOUND GUIDED PARACENTESIS FOR PALLIATION OF ASCITES. THIS PROCEDURE WA S PERFORMED BY THE UNDERSIGNED.
== END 2018-06-01 11:20 | disposition home or self-care (01) ==
LOC: RADPROMAIN 08:47
DX: R18.8 Other ascites (principal)
CPT/HCPCS: 36415; 49083; 82565; 82947; 85049; 85610

== ENCOUNTER 2018-06-05 23:42 | Observation (INO) | payer OTHER ==
[2018-06-06] MEDS ORDERED: SODIUM CHLORIDE 0.9% 1,000 ML IV STA (01:41)
[2018-06-06] MEDS ORDERED: IPRATROPIUM-ALBUTEROL 3 ML NEB INHALATION STA (01:55)
[2018-06-06] MEDS ORDERED: MORPHINE SULFATE 4 MG/ML SYRINGE IVP STA (01:55)
[2018-06-06] MEDS ORDERED: methylPREDNISolone SOD SUCCI 125 MG/2 ML VIAL IV STA (01:55)
--- NOTE | 2018-06-06 02:01 | XR ---
EXAM: XR Chest, 2 Views CLINICAL HISTORY: ITS.REASON XR Reason: shortness of breath TECHNIQUE: Frontal and lateral views of the chest. COMPARISON: 05/07/18 chest x-ray IMPRESSION: Cardiomegaly. Large right pleural effusion is again noted. Mild left pleural effusion. Mild vascular congestion.
[2018-06-06 02:03] LABS: Anisocytosis Slight; Basophils # (A) 0.1 k/uL (0-0.2); Basophils % (A) 1 %; Eosinophils # (A) 0.3 k/uL (0-0.7); Eosinophils % (A) 4 %; HCT 45.4 % (39.0-53.0); HGB 13.1 gm/dL (13.0-17.5); Hypochromasia Marked; Lymphocytes # (A) 0.5 k/uL (1.0-4.8); Lymphocytes % (A) 7 %; MCH 25.6 pg (25.0-35.0); MCHC 28.9 g/dL (31.0-37.0); MCV 88.5 fL (80.0-100.0); Mean Platelet Volume 7.1; Monocytes # (A) 0.7 k/uL (0-1.0); Monocytes % (A) 11 %; Neutrophils # (A) 5.1 k/uL (1.3-7.7); Neutrophils % (A) 75 %; Platelet Count 248 k/uL (150-450); RBC 5.13 m/uL (4.30-5.90); RDW 18.4 % (11.5-15.5); WBC 6.8 k/uL (3.8-10.6)
[2018-06-06 02:13] LABS: ALT 25 U/L (21-72); AST 30 U/L (17-59); Albumin 3.3 g/dL (3.5-5.0); Alkaline Phosphatase 415 U/L (38-126); Anion Gap 7 mmol/L; Blood Urea Nitrogen 16 mg/dL (9-20); Calcium 8.9 mg/dL (8.4-10.2); Carbon Dioxide 28 mmol/L (22-30); Chloride 100 mmol/L (98-107); Glucose 90 mg/dL (74-99); Potassium 4.5 mmol/L (3.5-5.1); Sodium 135 mmol/L (137-145); Total Bilirubin 1.4 mg/dL (0.2-1.3); Total Protein 6.8 g/dL (6.3-8.2)
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
[2018-06-06 02:31] LABS: INR 1.1 (<1.2); Partial Thromboplastin Time 27.8 sec (22.0-30.0); Prothrombin Time 11.9 sec (9.0-12.0)
[2018-06-06] MEDS: FUROSEMIDE 10 MG/ML 4 ML VIAL IV SCH ×3 (04:07→20:47)
[2018-06-06] MEDS ORDERED: METOPROLOL TARTRATE 5 MG/5 ML VIAL IVP STA (04:49)
[2018-06-06] MEDS ORDERED: ENOXAPARIN 80 MG/0.8 ML SYRINGE SQ SCH (05:00)
[2018-06-06 08:05] LABS: Glucose,Whole Blood 87 mg/dL (75-99)
[2018-06-06] MEDS: INSULIN ASPART (NovoLOG) 100 UNIT/ML VIAL SQ SCH ×4 (08:05→23:44)
[2018-06-06 08:08] LABS: Creatine Kinase MB 5.4 ng/mL (0.0-2.4); Troponin I 0.028 ng/mL (0.000-0.034)
[2018-06-06] MEDS: METOPROLOL TARTRATE 25 MG TAB PO SCH ×2 (08:38→20:52)
[2018-06-06] MEDS: predniSONE 20 MG TAB PO SCH (08:39)
[2018-06-06] MEDS: ISOSORBIDE MONONITRATE ER 30 MG TAB.ER.24H PO SCH (08:42)
[2018-06-06] MEDS: SPIRONOLACTONE 25 MG TAB PO SCH ×2 (08:42→20:48)
[2018-06-06] MEDS: MORPHINE SULFATE 4 MG/ML SYRINGE IVP PRN ×4 (08:43→22:31)
[2018-06-06 14:44] LABS: Creatine Kinase MB 5.6 ng/mL (0.0-2.4); Troponin I 0.03 ng/mL (0.000-0.034)
[2018-06-06 15:42] VITALS: BMI 25.8
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
[2018-06-06] MEDS ORDERED: IPRATROPIUM-ALBUTEROL 3 ML NEB INHALATION PRN (16:10)
--- NOTE | 2018-06-06 16:17 | US ---
EXAMINATION TYPE: US chest DATE OF EXAM: 06/06/2018 COMPARISON: chest x ray CLINICAL HISTORY: pleural effusion/rt. TECHNIQUE: Targeted ultrasound of the posterior lower right chest. EXAM MEASUREMENTS: Right Pleural Effusion pocket size: 8.8 cm A/P Right skin surface to fluid distance: 3.2 cm A/P Left Pleural Effusion pocket size: 8.7 cm A/P Left skin surface to fluid distance: 3.5 cm A/P Right side was marked for possible thoracentesis outside the dept. Left side was compared but not marked for possible thoracentesis outside the dept. as only right side was requested per order. Pulmonologists are able to review the images in the patient?s EMR. IMPRESSIONS: Bilateral pleural effusion
[2018-06-06 17:09] LABS: Glucose,Whole Blood 80 mg/dL (75-99)
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
[2018-06-06] MEDS: IPRATROPIUM-ALBUTEROL 3 ML NEB INHALATION SCH (19:37)
[2018-06-06 21:12] LABS: Glucose,Whole Blood 97 mg/dL (75-99)
[2018-06-07] MEDS: MORPHINE SULFATE 4 MG/ML SYRINGE IVP PRN ×5 (02:31→20:52)
[2018-06-07] MEDS: FUROSEMIDE 10 MG/ML 4 ML VIAL IV SCH ×3 (04:31→20:55)
[2018-06-07] MEDS: ASPIRIN 325 MG TAB PO SCH ×2 (04:32→22:17)
[2018-06-07] MEDS: INSULIN ASPART (NovoLOG) 100 UNIT/ML VIAL SQ SCH ×4 (06:39→21:01)
[2018-06-07] MEDS: IPRATROPIUM-ALBUTEROL 3 ML NEB INHALATION SCH ×4 (07:11→21:56)
[2018-06-07] MEDS: predniSONE 20 MG TAB PO SCH (08:40)
[2018-06-07] MEDS: METOPROLOL TARTRATE 25 MG TAB PO SCH ×2 (08:40→20:55)
[2018-06-07] MEDS: ISOSORBIDE MONONITRATE ER 30 MG TAB.ER.24H PO SCH (08:40)
[2018-06-07] MEDS: SPIRONOLACTONE 25 MG TAB PO SCH ×2 (08:40→20:55)
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
[2018-06-07 11:28] LABS: Glucose,Whole Blood 104 mg/dL (75-99)
--- NOTE | 2018-06-07 11:30 | ECHOF ---
Referral Reason:chest pain MEASUREMENTS -------- HEIGHT: 170.2 cm WEIGHT: 77.6 kg BP: 112/75 RVIDd: 4.6 cm (< 3.3) IVSd: 1.4 cm (0.6 - 1.1) LVIDd: 5.3 cm (3.9 - 5.3) LVPWd: 1.2 cm (0.6 - 1.1) IVSs: 1.5 cm LVIDs: 5.2 cm LVPWs: 1.2 cm LAESV Index (A-L): 39.45 ml/m Ao Diam: 3.2 cm (2.0 - 3.7) AV Cusp: 2.1 cm (1.5 - 2.6) LA Diam: 4.9 cm (2.7 - 3.8) EPSS: 1.8 cm RAP: 15.00 mmHg RVSP: 44.83 mmHg MV EF SLOPE: 82.44 mm/s (70 - 150) MV EXCURSION: 1.75 cm (> 18.000) FINDINGS -------- Undetermined rhythm. This was a technically good study. The left ventricular size is normal. There is mild concentric left ventricular hypertrophy. Overa ll left ventricular systolic function is severely impaired with, an EF < 20%. [place] is moving only. The right ventricle is severely enlarged. LA is moderately dilated 34-39 ml/m2 The right atrium is markedly enlarged. Aortic valve is trileaflet and is mildly thickened. There is no evidence of aortic regurgitation. There is no evidence of aortic stenosis. The mitral valve leaflets are mildly thickened. Mild mitral annular calcification present. [place] [id number]-[id number] mitral regurgitation is present. Severe tricuspid regurgitation present. There is mild pulmonary hypertension. The right ventricul ar systolic pressure, as measured by Doppler, is 44.83mmHg. Trace/mild (physiologic) pulmonic regurgitation. The aortic root size is normal. The inferior vena cava is dilated with poor inspiratory collapse which is consistent with estimated r ight atrial pressure of 20 mmHg. There is no pericardial effusion. Large Pleural Effusion. CONCLUSIONS -------- 1. Undetermined rhythm. 2. This was a technically good study. 3. The left ventricular size is normal. 4. There is mild concentric left ventricular hypertrophy. 5. Overall left ventricular systolic function is severely impaired with, an EF < 20%. 6. [place] is moving only. 7. The right ventricle is severely enlarged. 8. LA is moderately dilated 34-39 ml/m2 9. The right atrium is markedly enlarged. 10. Aortic valve is trileaflet and is mildly thickened. 11. The mitral valve leaflets are mildly thickened. 12. Mild mitral annular calcification present. 13. [id number] mitral regurgitation is present. 14. Severe tricuspid regurgitation present. 15. There is mild pulmonary hypertension. 16. The right ventricular systolic pressure, as measured by Doppler, is 44.83mmHg. 17. Trace/mild (physiologic) pulmonic regurgitation. 18. The aortic root size is normal. 19. The inferior vena cava is dilated with poor inspiratory collapse which is consistent with estimat ed right atrial pressure of 20 mmHg. 20. There is no pericardial effusion. 21. Large Pleural Effusion. PICK UP TRUCK DRIVER: Arthur Ortiz RDCS
--- NOTE | 2018-06-07 12:03 | P.PN ---
Subjective Patient resting in bed continues to be short of breath. Very diminished breath sounds. Awaiting thoracentesis for pleural effusion. had consultation with pulmonology and cardiology Objective - Vital Signs Vital signs: Vital Signs Temp 97.4 F L 06/07/18 08:00 Pulse 71 06/07/18 11:49 Resp 18 06/07/18 08:00 BP 112/75 06/07/18 08:00 Pulse Ox 96 06/07/18 08:00 Intake & Output 06/06/18 06/07/18 06/07/18 18:59 06:59 18:59 Intake Total 800 240 Output Total 800 1000 Balance -800 -200 240 Weight 74.843 kg 77.6 kg Intake: Oral 800 240 Output: Urine 800 1000 - Constitutional General appearance: Present: mild distress - EENT Eyes: Present: PERRLA Ears: bilateral: normal - Neck Neck: Present: normal ROM - Respiratory Respiratory: bilateral: diminished - Cardiovascular Rhythm: irregularly irregular - Gastrointestinal General gastrointestinal: Present: soft, ventral hernia - Integumentary Integumentary: Present: normal - Neurologic Neurologic: Present: CNII-XII intact - Musculoskeletal Musculoskeletal: Present: generalized weakness - Psychiatric Psychiatric: Present: A&O x's 3, appropriate affect, intact judgment & insight - Labs CBC & Chem 7: 06/06/18 01:12 06/06/18 01:12 Labs: Abnormal Lab Results - Last 24 Hours (Table) 06/06/18 06/07/18 Range/Units 14:09 11:26 POC Glucose (mg/dL) 104 H (75-99) mg/dL CK-MB (CK-2) 5.6 H (0.0-2.4) ng/mL Assessment and Plan Plan: Assessment Acute pulmonary edema with pleural effusion exacerbation of COPD Chronic persistent atrial fibrillation Acute on chronic Congestive heart failure systolic dysfunction ejection fraction 20-25% History of CVA/TIA Recurrent abdominal ascites GERD History of pulmonary embolism History of pleural effusion Plan Continue consultation with pulmonology expect thoracentesis is afternoon
--- NOTE | 2018-06-07 15:56 | P.PN ---
Subjective Progress Note Date: 06/07/18 Principal diagnosis: Recurrent pleural effusion This is a very pleasant 63-year-old gentleman who follows with Dr. Escobar as his primary care physician. He has a history of multiple medical problems including chronic atrial fibrillation, coronary artery disease, congestive heart failure, pulmonary embolism, COPD, liver cirrhosis, DVT. He has undergone multiple paracentesis and multiple thoracentesis. His last paracentesis was 06/01/2018 in the outpatient setting were 2.8 L was removed. He presented here today with complaints of increasing shortness of breath cough and congestion. His chest x- ray shows a recurrent moderate right-sided pleural effusion. We are consulted for the same. His last thoracentesis is in March 2018 at which time 2 L was removed. The fluid has been negative for malignancy. He was seen today in consultation on the selective care unit. He is awake and alert in no acute distress. He is dyspneic with conversation dyspneic with minimal exertion. Currently maintaining O2 saturations in the upper 90s on 2 L/m per nasal cannula. He's been afebrile. Hemodynamically stable. White count 6.8. Hemoglobin 13.1. INR 1.1. Creatinine 0.54. Influenza screen is negative. His been initiated on IV diuretics. Currently in a negative balance. Weight 74 kg. The patient is seen today 06/07/2018 in follow-up on the selective care unit. He is awake and alert in no acute distress. He is maintaining good O2 saturations in the mid 90s on 2 L/m per nasal cannula. He is afebrile. Hemodynamically stable. He remains on Lasix 40 mg IV every 8 hours. Still in a positive balance. Ultrasound of the chest reveals a 8.8 cm pocket on the right and an 8.7 cm pocket on the left. Plan for thoracentesis today. Echocardiogram again reveals severely impaired left ventricular systolic function with ejection fraction less than 20%. Right ventricle is severely enlarged as well. Moderate to severe mitral regurgitation. Severe tricuspid regurgitation. Objective - Vital Signs Vital signs: Vital Signs Temp 97.4 F L 06/07/18 08:00 Pulse 69 06/07/18 12:00 Resp 17 06/07/18 12:00 BP 110/64 06/07/18 12:00 Pulse Ox 95 06/07/18 12:00 Intake & Output 03/06/07/18 06/07/18 18:59 06:59 18:59 Intake Total 800 980 Output Total 800 1000 800 Balance -800 -200 180 Weight 74.843 kg 77.6 kg Intake: Oral 800 980 Output: Urine 800 1000 800 Other: # Voids 3 - Exam GENERAL EXAM: Alert, 63-year-old gentleman, disheveled, comfortable in no apparent distress. On 2 L nasal cannula HEAD: Normocephalic. EYES: Normal reaction of pupils, equal size. NOSE: Clear with pink turbinates. THROAT: No erythema or exudates. NECK: No masses, no JVD. CHEST: No chest wall deformity. LUNGS: Equal air entry with bilateral crackers right greater than left. Diminished CVS: S1 and S2 normal with no audible murmur, regular rhythm. ABDOMEN: No hepatosplenomegaly, normal bowel sounds, no guarding or rigidity. SPINE: No scoliosis or deformity SKIN: No rashes CENTRAL NERVOUS SYSTEM: No focal deficits, tone is normal in all 4 extremities. EXTREMITIES: There is 1-2+ peripheral edema. No clubbing, no cyanosis. Peripheral pulses are intact. - Labs CBC & Chem 7: 06/06/18 01:12 06/06/18 01:12 Labs: Abnormal Lab Results - Last 24 Hours (Table) 06/07/18 Range/Units 11:26 POC Glucose (mg/dL) 104 H (75-99) mg/dL Assessment and Plan Assessment: Impression: #1 Dyspnea secondary to recurrent pleural effusions right greater than left. #2 Acute on chronic systolic/diastolic congestive heart failure with severe refractory ascites. Ejection fraction less than 20%. Only the apex is moving. Right ventricle is severely enlarged. There is moderate to severe mitral regurgitation with severe tricuspid regurgitation. #3 Lower extremity edema secondary to above. #4 Atrial fibrillation, maintained on Lovenox. #5 Ascites secondary to above most recent paracentesis 06/01/2018 was 2.8 L removed. #6 Recurrent bilateral pleural effusions, most recent thoracentesis on the right side with 2 L removed. Negative for malignancy. #7 History of laryngeal cancer status post radiation. #8 Hypertension. #9 Diabetes mellitus. #10 Hyperlipidemia. #12 Coronary artery disease with previous stent placement. #13 Poor overall functional performance based on the above-mentioned multiple comorbidities. Plan: The patient was seen and evaluated by Dr. Garcia. Ultrasound of the chest was reviewed. Plan for a right-sided thoracentesis today. Continue his current t reatment plan including IV diuretics. Echocardiogram reviewed. Cardiology is on the case. Overall prognosis remains quite poor and guarded. We'll continue to follow and make further recommendations based on his clinical status. I, the cosigning physician, performed a history & physical examination of the patient. Lungs sounds bilateral crackles right greater than left. Maintaining good O2 saturations in the 90s on 2 L/m per nasal cannula. I discussed the assessment and plan of care with my nurse practitioner, Lorri Hoffmann. I attest to the above note as dictated by her.
[2018-06-07 16:24] LABS: Glucose,Whole Blood 149 mg/dL (75-99)
--- NOTE | 2018-06-07 17:22 | XR ---
EXAMINATION TYPE: XR chest 1V portable DATE OF EXAM: 06/07/2018 COMPARISON: Yesterday HISTORY: Thoracentesis TECHNIQUE: Single frontal view of the chest is obtained. FINDINGS: There is pulmonary vascular congestion. Heart appears enlarged. There is some infiltrate a nd atelectasis left lower lobe. There is no pneumothorax. There is slight blunting of costophrenic an gles. IMPRESSION: Congestive heart failure. There is significant decreased right pleural fluid compared to yesterday.
--- NOTE | 2018-06-07 17:59 | OP ---
OPERATIVE REPORT OPERATIVE PROCEDURE: Right-sided thoracentesis. PREOPERATIVE DIAGNOSIS: Right-sided pleural effusion. POSTOPERATIVE DIAGNOSIS: Right-sided pleural effusion. ANESTHESIA USED: 2 mL of 1% lidocaine. PROCEDURE DESCRIPTION: The patient was placed in a sitting-upright position. The area below the right scapula which was earlier localized by ultrasound was prepared in a sterile fashion and drapes were applied. At the level of the ninth intercostal space and tip of the scapula, the area was locally anesthetized, then a 26-gauge needle was inserted into the pleural space. The fluid was localized by the needle. Then a small tiny incision was made and a standard thoracentesis catheter and needle were used, advanced into the same site to the pleural space, and the fluid was obtained. Then the catheter was advanced out of the needle and the needle was pulled out of the pleural space. Freely flowing fluid was removed; 2400 mL of leslye-colored fluid was removed from the right pleural space. It was non-bloody. The procedure was well tolerated. No evidence of any immediate complications. Chest x-ray showed no complications postoperatively. MMODL / IJN: [id number] /
[2018-06-07 20:53] LABS: Glucose,Whole Blood 145 mg/dL (75-99)
[2018-06-07 21:57] VITALS: RESP 20
[2018-06-08] MEDS: MORPHINE SULFATE 4 MG/ML SYRINGE IVP PRN ×3 (00:47→09:11)
[2018-06-08 03:33] LABS: Total Protein, Body Fluid 2801 mg/dL
[2018-06-08] MEDS: FUROSEMIDE 10 MG/ML 4 ML VIAL IV SCH (04:30)
[2018-06-08 05:11] VITALS: BP 102/65; TEMP 97.9
[2018-06-08 07:45] LABS: Glucose,Whole Blood 102 mg/dL (75-99)
[2018-06-08] MEDS: INSULIN ASPART (NovoLOG) 100 UNIT/ML VIAL SQ SCH ×2 (08:11→12:02)
[2018-06-08] MEDS ORDERED: ASPIRIN 81 MG PO SCH (09:00)
[2018-06-08] MEDS ORDERED: ENOXAPARIN 80 MG/0.8 ML SYRINGE SQ SCH (09:00)
[2018-06-08] MEDS ORDERED: ONDANSETRON 4 MG/2 ML VIAL IVP PRN (09:05)
[2018-06-08] MEDS: IPRATROPIUM-ALBUTEROL 3 ML NEB INHALATION SCH ×2 (09:23→13:51)
[2018-06-08 12:00] LABS: Glucose,Whole Blood 99 mg/dL (75-99)
[2018-06-08] MEDS: METOPROLOL TARTRATE 25 MG TAB PO SCH (12:01)
[2018-06-08] MEDS: SPIRONOLACTONE 25 MG TAB PO SCH (12:01)
--- NOTE | 2018-06-08 12:24 | P.PN ---
Subjective Patient states improvement in rest her status post thoracentesis of 2400 mL. Patient has been vomiting today with nausea. Patient will be discharged when vomiting has been controlled Objective - Vital Signs Vital signs: Vital Signs Temp 97.9 F 06/08/18 05:08 Pulse 100 06/08/18 09:36 Resp 20 06/08/18 05:08 BP 102/65 06/08/18 05:08 Pulse Ox 92 L 06/08/18 09:25 Intake & Output 06/07/18 06/08/18 06/08/18 18:59 06:59 18:59 Intake Total 1220 240 Output Total 800 Balance 420 240 Weight 76.3 kg Intake: Oral 1220 240 Output: Urine 800 Other: # Voids 3 3 - Constitutional General appearance: Present: mild distress - EENT Eyes: Present: PERRLA Ears: bilateral: normal - Neck Neck: Present: normal ROM - Respiratory Respiratory: bilateral: diminished - Cardiovascular Rhythm: irregularly irregular - Gastrointestinal General gastrointestinal: Present: distended, soft - Integumentary Integumentary: Present: normal - Neurologic Neurologic: Present: CNII-XII intact - Musculoskeletal Musculoskeletal: Present: generalized weakness - Psychiatric Psychiatric: Present: A&O x's 3, appropriate affect, intact judgment & insight - Labs CBC & Chem 7: 06/06/18 01:12 06/06/18 01:12 Labs: Abnormal Lab Results - Last 24 Hours (Table) 06/07/18 06/07/18 06/08/18 Range/Units 16:22 20:51 07:01 POC Glucose (mg/dL) 149 H 145 H 102 H (75-99) mg/dL Microbiology - Last 24 Hours (Table) 06/07/18 13:00 Gram Stain - Preliminary Pleural Fluid Body Fluid Culture - Preliminary - Imaging and Cardiology Chest x-ray: report reviewed Assessment and Plan Plan: Assessment Acute pulmonary edema with pleural effusion Post thoracentesis 2400 mL Chronic atrial fibrillation Acute on chronic congestive heart failure with systolic dysfunction ejection fraction 20-25% History of coronary disease with SD cardiomyopathy History of CVA/TIA Recurrent abdominal ascites GERD History of PE Plan Hopeful discharge soon
--- NOTE | 2018-06-08 13:53 | P.PN ---
Subjective This is a 61-year-old male past medical history significant for ischemic cardiomyopathy, coronary artery disease status post stent placement, recurrent ascites requiring recurrent paracentesis, diabetes mellitus, hypertension, dyslipidemia, chronic persistent atrial fibrillation, COPD prior history of pulmonary embolism, cirrhosis and chronic nicotine dependence. He follows in the office with Dr. Mayers. He underwent a paracentesis with 2.4 L removed yesterday per pulmonary team. He is seen and examined sitting up on the edge of the bed. He denies any further symptoms of chest discomfort. He continues to complain of shortness of breath and he is also complaining of nausea and vomiting. There is an emesis basin next to the bed with clear emesis noted. Blood pressure 102/65 heart rate 77 afebrile maintaining oxygen satura tion on nasal cannula. Echocardiogram obtained reveals severely impaired left ventricular systolic function with ejection fraction less than 20%, only the apex is moving, moderately dilated left atrium, moderate to severe mitral regurgitation, severe tricuspid regurgitation, mild pulmonary hypertension with an RVSP of 44 mmHg and large pleural effusion. GENERAL: Well-appearing, well-nourished and in no acute distress. NECK: Supple without JVD or thyromegaly. LUNGS: Breath sounds clear to auscultation bilaterally. Respiration equal and unlabored. No wheezes, rales or rhonchi. HEART: Irregular rate and rhythm with systolic ejection murmur at the base, no rubs or gallops. S1 and S2 heard. EXTREMITIES: Normal range of motion, trace bilateral lower extremity nonpitting edema. No clubbing or cyanosis. Peripheral pulses intact. ASSESSMENT Right-sided chest discomfort, atypical for angina or an acute coronary syndrome. An acute event has been ruled out. Bilateral pleural effusions status post thoracentesis Chronic persistent atrial fibrillation COPD Alcoholic cirrhosis Ischemic cardiomyopathy Coronary artery disease status post prior IN and stent placement Diabetes mellitus Chronic nicotine dependence PLAN Transitioned to oral diuretics. Continue aspirin, Imdur, Lopressor and Aldactone as previously ordered. Overall stable from a cardiac perspective. Follow up with Dr. Mayers upon discharge. Nurse Practitioner note has been reviewed, I agree with a documented findings and plan of care. Patient was seen and examined. Objective - Vital Signs Vital signs: Vital Signs Temp 97.9 F 06/08/18 05:08 Pulse 100 06/08/18 09:36 Resp 20 06/08/18 05:08 BP 102/65 06/08/18 05:08 Pulse Ox 92 L 06/08/18 09:25 Intake & Output 06/07/18 06/08/18 06/08/18 18:59 06:59 18:59 Intake Total 1220 240 Output Total 800 Balance 420 240 Weight 76.3 kg Intake: Oral 1220 240 Output: Urine 800 Other: # Voids 3 3 - Labs CBC & Chem 7: 06/06/18 01:12 06/06/18 01:12 Labs: Abnormal Lab Results - Last 24 Hours (Table) 06/07/18 06/07/18 06/08/18 Range/Units 16:22 20:51 07:01 POC Glucose (mg/dL) 149 H 145 H 102 H (75-99) mg/dL Microbiology - Last 24 Hours (Table) 06/07/18 13:00 Gram Stain - Preliminary Pleural Fluid Body Fluid Culture - Preliminary
[2018-06-08 14:01] VITALS: PULSE 100
--- NOTE | 2018-06-08 14:06 | P.DS ---
Providers Date of admission: 06/06/18 03:51 Expected date of discharge: 06/08/18 Attending physician: Andrews Escobar Consults: 06/06/18 03:49 Consult Physician Routine Consulting Provider: [facility] Consult Reason/Comments: CHF Do you want consulting provider notified?: Yes, Notify in am 06/06/18 10:52 Consult Physician Urgent Consulting Provider: Oliverio Mc Consult Reason/Comments: pleural effusion Do you want consulting provider notified?: Yes Primary care physician: Andrews Escobar Hospital Course: 63-year-old male was admitted to the emergency room with complaints of increasing shortness of breath. Patient was evaluated by cardiology and pulmonology. Patient had a thoracentesis with 2400 mL. Patient states he is improved. Patient stable now for discharge Assessment acute pulmonary edema with pleural effusion COPD exacerbation atrial fibrillation chronic persistent congestive heart failure acute and chronic systolic dysfunction ejection fra ction 20 to 25% history of CVA/TIA GERD history of pulmonary embolus on recurrent abdominal ascites Plan follow up with family physician Dr. Andrews Escobar follow up with pulmonology Dr. Mir [facility] Patient Condition at Discharge: Stable Plan - Discharge Summary Discharge Rx Participant: Yes New Discharge Prescriptions: New predniSONE 40 mg PO DAILY #5 tab Continue Ipratropium-Albuterol Nebulize [Duoneb 0.5 mg-3 mg/3 ml Soln] 3 ml INHALATION RT-QID #120 ampul.neb Metoprolol Tartrate [Lopressor] 75 mg PO BID #60 tab Pantoprazole [Protonix] 40 mg PO AC-BRKFST #30 tablet. Albuterol Inhaler [Ventolin Hfa Inhaler] 2 puff INHALATION RT-Q4H PRN #1 puff PRN Reason: Shortness Of Breath Cyclobenzaprine [Flexeril] 10 mg PO TID PRN #90 tab PRN Reason: Pain Isosorbide Mononitrate ER [Imdur] 30 mg PO DAILY #30 tab.er.24h Nitroglycerin Sl Tabs [Nitrostat] 0.4 mg SUBLINGUAL Q5M PRN #100 tab PRN Reason: Chest Pain metFORMIN HCL [Glucophage] 500 mg PO DAILY Ipratropium/Albuterol Sulfate [Combivent Respimat Inhaler] 2 puff INHALATION RT-QID Ondansetron Odt [Zofran ODT] 4 mg SL BID PRN PRN Reason: Nausea Spironolactone [Aldactone] 50 mg PO BID #120 tab Furosemide [Lasix] 40 mg PO BID #60 tablet Discontinued Aspirin 81 mg PO DAILY #30 chew Enoxaparin [Lovenox] 80 mg SQ Q12H #60 syringe Hyoscyamine Sulfate [Hyoscyamine Sulfate SL] 0.125 mg SL Q6H PRN #30 tab.subl PRN Reason: Gi Upset Discharge Medication List Albuterol Inhaler [Ventolin Hfa Inhaler] 2 puff INHALATION RT-Q4H PRN #1 puff 03/17/18 [Rx] Cyclobenzaprine [Flexeril] 10 mg PO TID PRN #90 tab 03/17/18 [Rx] Ipratropium-Albuterol Nebulize [Duoneb 0.5 mg-3 mg/3 ml Soln] 3 ml INHALATION RT-QID #120 ampul.neb 03/17/18 [Rx] Isosorbide Mononitrate ER [Imdur] 30 mg PO DAILY #30 tab.er.24h 03/17/18 [Rx] Metoprolol Tartrate [Lopressor] 75 mg PO BID #60 tab 03/17/18 [Rx] Nitroglycerin Sl Tabs [Nitrostat] 0.4 mg SUBLINGUAL Q5M PRN #100 tab 03/17/18 [Rx] Pantoprazole [Protonix] 40 mg PO AC-BRKFST #30 tablet.dr 03/17/18 [Rx] Ipratropium/Albuterol Sulfate [Combivent Respimat Inhaler] 2 puff INHALATION RT- QID 05/08/18 [History] Ondansetron Odt [Zofran ODT] 4 mg SL BID PRN 05/08/18 [History] metFORMIN HCL [Glucophage] 500 mg PO DAILY 05/08/18 [History] Furosemide [Lasix] 40 mg PO BID #60 tablet 05/11/18 [Rx] Spironolactone [Aldactone] 50 mg PO BID #120 tab 05/11/18 [Rx] predniSONE 40 mg PO DAILY #5 tab 06/08/18 [Rx] Follow up Appointment(s)/Referral(s): Andrews Escobar MD [Primary Care Provider] - 1-2 days [facility], [NON-STAFF] - Tonie Garcia MD [STAFF PHYSICIAN] - 1 Week Discharge Disposition: HOME WITH HOME HEALTH SERVICES
--- NOTE | 2018-06-08 15:20 | P.PN ---
Subjective Progress Note Date: 06/08/18 Principal diagnosis: Recurrent pleural effusion This is a very pleasant 63-year-old gentleman who follows with Dr. Escobar as his primary care physician. He has a history of multiple medical problems including chronic atrial fibrillation, coronary artery disease, congestive heart failure, pulmonary embolism, COPD, liver cirrhosis, DVT. He has undergone multiple paracentesis and multiple thoracentesis. His last paracentesis was 06/01/2018 in the outpatient setting were 2.8 L was removed. He presented here today with complaints of increasing shortness of breath cough and congestion. His chest x- ray shows a recurrent moderate right-sided pleural effusion. We are consulted for the same. His last thoracentesis is in March 2018 at which time 2 L was removed. The fluid has been negative for malignancy. He was seen today in consultation on the selective care unit. He is awake and alert in no acute distress. He is dyspneic with conversation dyspneic with minimal exertion. Currently maintaining O2 saturations in the upper 90s on 2 L/m per nasal cannula. He's been afebrile. Hemodynamically stable. White count 6.8. Hemoglobin 13.1. INR 1.1. Creatinine 0.54. Influenza screen is negative. His been initiated on IV diuretics. Currently in a negative balance. Weight 74 kg. The patient is seen today 06/07/2018 in follow-up on the selective care unit. He is awake and alert in no acute distress. He is maintaining good O2 saturations in the mid 90s on 2 L/m per nasal cannula. He is afebrile. Hemodynamically stable. He remains on Lasix 40 mg IV every 8 hours. Still in a positive balance. Ultrasound of the chest reveals a 8.8 cm pocket on the right and an 8.7 cm pocket on the left. Plan for thoracentesis today. Echocardiogram again reveals severely impaired left ventricular systolic function with ejection fraction less than 20%. Right ventricle is severely enlarged as well. Moderate to severe mitral regurgitation. Severe tricuspid regurgitation. The patient is seen today 06/08/2017 in follow-up in the regular medical floor. He is currently sitting up in chair at the bedside. Awake and alert in no acute distress. He is breathing quite a bit better today as compared to yesterday. We did remove over 2 L of fluid from the right pleural space. Protein 2.8. LDH 93. Transudate of in nature. Cultures are pending. Cytology pending. He is maintaining good O2 saturations in the 90s on 2 L/m per nasal cannula. He is anxious to go home. Objective - Vital Signs Vital signs: Vital Signs Temp 97.9 F 06/08/18 05:08 Pulse 100 06/08/18 14:01 Resp 20 06/08/18 05:08 BP 102/65 06/08/18 05:08 Pulse Ox 92 L 06/08/18 09:25 Intake & Output 06/07/18 06/08/18 06/08/18 18:59 06:59 18:59 Intake Total 1220 240 Output Total 800 Balance 420 240 Weight 76.3 kg Intake: Oral 1220 240 Output: Urine 800 Other: # Voids 3 3 1 - Exam GENERAL EXAM: Alert, 63-year-old gentleman, disheveled, comfortable in no apparent distress. On 2 L nasal cannula HEAD: Normocephalic. EYES: Normal reaction of pupils, equal size. NOSE: Clear with pink turbinates. THROAT: No erythema or exudates. NECK: No masses, no JVD. CHEST: No chest wall deformity. LUNGS: Equal air entry with bilateral crackles left greater than right. Diminished CVS: S1 and S2 normal with no audible murmur, regular rhythm. ABDOMEN: No hepatosplenomegaly, normal bowel sounds, no guarding or rigidity. SPINE: No scoliosis or deformity SKIN: No rashes CENTRAL NERVOUS SYSTEM: No focal deficits, tone is normal in all 4 extremities. EXTREMITIES: There is 1-2+ peripheral edema. No clubbing, no cyanosis. Per ipheral pulses are intact. - Labs CBC & Chem 7: 06/06/18 01:12 06/06/18 01:12 Labs: Abnormal Lab Results - Last 24 Hours (Table) 06/07/18 06/07/18 06/08/18 Range/Units 16:22 20:51 07:01 POC Glucose (mg/dL) 149 H 145 H 102 H (75-99) mg/dL Microbiology - Last 24 Hours (Table) 06/07/18 13:00 Gram Stain - Preliminary Pleural Fluid Body Fluid Culture - Preliminary Assessment and Plan Assessment: Impression: #1 Dyspnea secondary to recurrent pleural effusions right greater than left. Status post thoracentesis with over 2 L removed yesterday. #2 Acute on chronic systolic/diastolic congestive heart failure with severe refractory ascites. Ejection fraction less than 20%. Only the apex is moving. Right ventricle is severely enlarged. There is moderate to severe mitral regurgitation with severe tricuspid regurgitation. #3 Lower extremity edema secondary to above. #4 Atrial fibrillation, maintained on Lovenox. #5 Ascites secondary to above most recent paracentesis 06/01/2018 was 2.8 L removed. #6 Recurrent bilateral pleural effusions, most recent thoracentesis on the right side with 2 L removed. Negative for malignancy. #7 History of laryngeal cancer status post radiation. #8 Hypertension. #9 Diabetes mellitus. #10 Hyperlipidemia. #12 Coronary artery disease with previous stent placement. #13 Poor overall functional performance based on the above-mentioned multiple comorbidities. Plan: The patient was seen and evaluated by Dr. Garcia. He did perform a right-sided thoracentesis yesterday with over 2 L removed. Transudative in nature. Cultures are pending. Cytology pending. He is cleared for discharge from the pulmonary standpoint. Overall prognosis remains quite poor and guarded. He should follow-up in our office in 1-2 weeks' time. We'll repeat a chest x-ray then. He is encouraged to call sooner with any recurrence of symptoms or other questions or concerns. I, the cosigning physician, performed a history & physical examination of the patient. Lungs sounds bilateral crackles right greater than left. Maintaining good O2 saturations in the 90s on 2 L/m per nasal cannula. I discussed the assessment and plan of care with my nurse practitioner, Lorri Hoffmann. I attest to the above note as dictated by her.
[2018-06-08] MEDS ORDERED: FUROSEMIDE 40 MG TAB PO SCH (16:00)
[2018-06-13 08:33] LABS: Glucose,Whole Blood 126 mg/dL (75-99)
== END 2018-06-08 15:31 | disposition home health service (06) ==
LOC: EC 23:42 → 3SCARD 06-06 03:51 → INTOOBSV 06-06 03:51 → 3SCARD 06-06 12:56 → 4MS4W 06-07 19:47 → UNDODISIN 06-08 15:31
PROVIDERS: ADMIT Family Medicine; ATTEND Family Medicine
PROC: 0W993ZX Drainage of Right Pleural Cavity, Percutaneous Approach, Diagnostic (ICD-10-PCS; principal; 2018-06-07)
DX: I11.0 Hypertensive heart disease with heart failure (principal); J44.1 Chronic obstructive pulmonary disease with (acute) exacerbation; J91.8 Pleural effusion in other conditions classified elsewhere; F17.210 Nicotine dependence, cigarettes, uncomplicated; Z95.5 Presence of coronary angioplasty implant and graft; E11.9 Type 2 diabetes mellitus without complications; E78.5 Hyperlipidemia, unspecified; F32.9 Major depressive disorder, single episode, unspecified; F41.9 Anxiety disorder, unspecified; I08.1 Rheumatic disorders of both mitral and tricuspid valves; I25.2 Old myocardial infarction; I25.5 Ischemic cardiomyopathy; I27.20 Pulmonary hypertension, unspecified; I45.10 Unspecified right bundle-branch block; I48.2 Chronic atrial fibrillation; I50.43 Acute on chronic combined systolic (congestive) and diastolic (congestive) heart failure; K21.9 Gastro-esophageal reflux disease without esophagitis; K70.31 Alcoholic cirrhosis of liver with ascites; I69.334 Monoplegia of upper limb following cerebral infarction affecting left non-dominant side; I25.10 Atherosclerotic heart disease of native coronary artery without angina pectoris; G89.29 Other chronic pain; E66.9 Obesity, unspecified; Z68.26 Body mass index [BMI] 26.0-26.9, adult; Z79.82 Long term (current) use of aspirin; Z79.84 Long term (current) use of oral hypoglycemic drugs; Z79.01 Long term (current) use of anticoagulants; Z79.899 Other long term (current) drug therapy; Z85.21 Personal history of malignant neoplasm of larynx; Z86.711 Personal history of pulmonary embolism; Z86.718 Personal history of other venous thrombosis and embolism; Z87.01 Personal history of pneumonia (recurrent); Z92.3 Personal history of irradiation; Z87.440 Personal history of urinary (tract) infections; Z88.5 Allergy status to narcotic agent; Z88.8 Allergy status to other drugs, medicaments and biological substances; Z16.24 Resistance to multiple antibiotics
CPT/HCPCS: 32554; 96376 ×4; 96361; 96372; 96374; 96375; 99285; 36415; 94640 ×6; 94760; 93005; 93306; 97162; 97165; 88108; 88305; 80053; 82553; 84484; 85025; 85610; 85730; 87070; 87205; 82945; 83615; 84157; 87502; 71045; 71046; 76604; G0378 ×3; J2270 ×3; J1940 ×3; J1650; J7512

== ENCOUNTER 2018-06-20 12:35 | Inpatient (IN) | payer OTHER ==
[2018-06-20] MEDS ORDERED: IPRATROPIUM 0.5 MG/2.5 ML NEBU INHALATION STA (13:44)
[2018-06-20] MEDS ORDERED: ALBUTEROL NEBULIZED 2.5 MG/3 ML INHALATION STA (13:44)
[2018-06-20] MEDS ORDERED: methylPREDNISolone SOD SUCCI 125 MG/2 ML VIAL IV STA (13:44)
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
[2018-06-20 14:07] LABS: Anisocytosis Slight; Basophils # (A) 0.1 k/uL (0-0.2); Basophils % (A) 1 %; Eosinophils # (A) 0.3 k/uL (0-0.7); Eosinophils % (A) 4 %; HGB 13.3 gm/dL (13.0-17.5); Hypochromasia Marked; Lymphocytes # (A) 0.5 k/uL (1.0-4.8); Lymphocytes % (A) 8 %; MCH 26.9 pg (25.0-35.0); MCHC 30.9 g/dL (31.0-37.0); MCV 86.9 fL (80.0-100.0); Monocytes # (A) 0.6 k/uL (0-1.0); Monocytes % (A) 8 %; Neutrophils # (A) 5.2 k/uL (1.3-7.7); Neutrophils % (A) 77 %; Platelet Count 249 k/uL (150-450); RBC 4.95 m/uL (4.30-5.90); RDW 18.1 % (11.5-15.5); WBC 6.7 k/uL (3.8-10.6)
--- NOTE | 2018-06-20 14:16 | XR ---
EXAMINATION TYPE: XR chest 2V DATE OF EXAM: 06/20/2018 COMPARISON: Prior chest x-ray 06/11/2018 HISTORY: Difficulty breathing TECHNIQUE: Frontal and lateral views of the chest are obtained on 3 images. FINDINGS: There is been interval development of increased density at the right lung base obscuring t he right heart border and hemidiaphragm. No pneumothorax. Heart remains enlarged. There are overlying cardiac leads and the patient is rotated. Postop change noted to the cervical spine. IMPRESSION: Interval development of right lower lobe atelectasis versus pneumonia or edema and possi ble associated effusion. Cardiomegaly.
[2018-06-20 14:28] LABS: INR 1.2 (<1.2); Partial Thromboplastin Time 22.4 sec (22.0-30.0); Prothrombin Time 12.3 sec (9.0-12.0)
[2018-06-20 14:31] LABS: ALT 25 U/L (21-72); AST 32 U/L (17-59); Albumin 3.3 g/dL (3.5-5.0); Alkaline Phosphatase 400 U/L (38-126); Anion Gap 8 mmol/L; Blood Urea Nitrogen 24 mg/dL (9-20); Calcium 9.1 mg/dL (8.4-10.2); Carbon Dioxide 29 mmol/L (22-30); Chloride 104 mmol/L (98-107); Glucose 88 mg/dL (74-99); Potassium 4.7 mmol/L (3.5-5.1); Sodium 141 mmol/L (137-145); Total Bilirubin 1.5 mg/dL (0.2-1.3); Total Protein 6.7 g/dL (6.3-8.2)
[2018-06-20] MEDS ORDERED: CYCLOBENZAPRINE 10 MG TAB PO PRN (17:34)
[2018-06-20] MEDS ORDERED: NITROGLYCERIN SL TABS 0.4 MG TAB SUBLINGUAL PRN (17:34)
[2018-06-20] MEDS ORDERED: HYDROmorphone 0.5 MG/0.5 ML SYRINGE IVP PRN (17:37)
[2018-06-20 17:58] VITALS: BMI 25.0
[2018-06-20 18:02] LABS: Glucose,Whole Blood 76 mg/dL (75-99)
[2018-06-20] MEDS: FUROSEMIDE 40 MG TAB PO SCH (18:10)
[2018-06-20] MEDS: SPIRONOLACTONE 25 MG TAB PO SCH (20:46)
[2018-06-20] MEDS: METOPROLOL TARTRATE 25 MG TAB PO SCH (20:46)
[2018-06-20 20:59] LABS: Glucose,Whole Blood 116 mg/dL (75-99)
[2018-06-21 06:06] LABS: Glucose,Whole Blood 79 mg/dL (75-99)
[2018-06-21] MEDS: PANTOPRAZOLE 40 MG TABLET PO SCH (06:43)
[2018-06-21] MEDS: IPRATROPIUM-ALBUTEROL 3 ML NEB INHALATION PRN ×2 (08:06→15:04)
[2018-06-21] MEDS: FUROSEMIDE 40 MG TAB PO SCH ×2 (08:14→16:01)
[2018-06-21] MEDS: METOPROLOL TARTRATE 25 MG TAB PO SCH ×2 (08:14→21:23)
[2018-06-21] MEDS: SPIRONOLACTONE 25 MG TAB PO SCH ×2 (08:14→21:24)
[2018-06-21] MEDS: metFORMIN 500 MG TAB PO SCH (08:14)
[2018-06-21] MEDS: ISOSORBIDE MONONITRATE ER 30 MG TAB.ER.24H PO SCH (08:14)
[2018-06-21 11:45] LABS: Glucose,Whole Blood 99 mg/dL (75-99)
[2018-06-21] MEDS: MORPHINE SULFATE 2 MG/ML SYRINGE IVP PRN ×3 (11:48→20:48)
[2018-06-21] MEDS: ONDANSETRON ODT 4 MG TAB PO PRN (11:52)
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
[2018-06-21 16:28] LABS: Glucose,Whole Blood 130 mg/dL (75-99)
[2018-06-21 21:30] LABS: Glucose,Whole Blood 111 mg/dL (75-99)
[2018-06-22] MEDS: MORPHINE SULFATE 2 MG/ML SYRINGE IVP PRN ×5 (01:31→21:01)
[2018-06-22] MEDS: IPRATROPIUM-ALBUTEROL 3 ML NEB INHALATION PRN ×5 (04:29→20:41)
[2018-06-22 06:23] LABS: Glucose,Whole Blood 121 mg/dL (75-99)
[2018-06-22] MEDS: PANTOPRAZOLE 40 MG TABLET PO SCH (06:27)
[2018-06-22] MEDS: METOPROLOL TARTRATE 25 MG TAB PO SCH ×2 (08:34→21:01)
[2018-06-22] MEDS: FUROSEMIDE 40 MG TAB PO SCH ×2 (08:34→17:13)
[2018-06-22] MEDS: SPIRONOLACTONE 25 MG TAB PO SCH ×2 (08:34→21:00)
[2018-06-22] MEDS: metFORMIN 500 MG TAB PO SCH (08:34)
[2018-06-22] MEDS: ISOSORBIDE MONONITRATE ER 30 MG TAB.ER.24H PO SCH (08:34)
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
[2018-06-22 12:03] LABS: Glucose,Whole Blood 115 mg/dL (75-99)
--- NOTE | 2018-06-22 13:09 | P.PN ---
Subjective Patient sitting at side of bed complaining of a chronic pain and some shortness of breath. Patient had discussed with pulmonology regarding possible thoracentesis Objective - Vital Signs Vital signs: Vital Signs Temp 96.8 F L 06/22/18 12:00 Pulse 88 06/22/18 12:23 Resp 22 06/22/18 12:00 BP 105/68 06/22/18 12:00 Pulse Ox 92 L 06/22/18 12:00 Intake & Output 06/21/18 06/22/18 06/22/18 18:59 06:59 18:59 Intake Total 860 360 Output Total 600 Balance 260 360 Weight 73.2 kg Intake: IV 20 Invasive Line 3 20 Oral 840 360 Output: Urine 600 Other: Voiding Method Toilet Toilet # Voids 1 - Constitutional General appearance: Present: disheveled, mild distress - EENT Eyes: Present: PERRLA Ears: bilateral: normal - Neck Neck: Present: normal ROM - Respiratory Respiratory: bilateral: diminished - Cardiovascular Rhythm: irregularly irregular - Gastrointestinal General gastrointestinal: Present: soft, ventral hernia - Integumentary Integumentary: Present: normal - Neurologic Neurologic: Present: CNII-XII intact - Musculoskeletal Musculoskeletal: Present: generalized weakness - Psychiatric Psychiatric: Present: A&O x's 3, appropriate affect, intact judgment & insight - Labs CBC & Chem 7: 06/20/18 13:45 06/20/18 13:45 Labs: Abnormal Lab Results - Last 24 Hours (Table) 06/21/18 06/21/18 06/22/18 Range/Units 16:12 21:29 06:22 POC Glucose (mg/dL) 130 H 111 H 121 H (75-99) mg/dL 06/22/18 Range/Units 11:30 POC Glucose (mg/dL) 115 H (75-99) mg/dL Assessment and Plan Plan: Assessment Pleural effusion acute on chronic COPD with exacerbation Chronic atrial fibrillation Coronary artery disease with history of [place] Chronic abdominal ascites with frequent paracentesis Cardiomyopathy ejection fraction 20-25% with systolic dysfunction CHF Diabetes type 2 History of DVT pulmonary embolism History of GERD BPH Plan Has had cardiology consult they have signed off Continue consultation with pulmonology possible thoracentesis
--- NOTE | 2018-06-22 13:28 | P.PN ---
Subjective Progress Note Date: 06/22/18 Principal diagnosis: Dyspnea secondary to recurrent pleural effusions right greater than left. This is a very pleasant 63-year-old gentleman who follows with Dr. Escobar as his primary care physician. He has a history of multiple medical problems including chronic atrial fibrillation, coronary artery disease, congestive heart failure, pulmonary embolism, COPD, liver cirrhosis, DVT. He has undergone multiple paracentesis and multiple thoracentesis. Last thoracentesis was done by Dr. Garcia on 2018 on the right lung and 2400 ML's of leslye-colored fluid was removed. Transudate of in nature. He states his last paracentesis was about a week ago. He presented to the emergency room again yesterday with complaints of increasing shortness of breath, cough and congestion. Chest x-ray again shows interval development of a right lower lobe atelectasis versus pneumonia or edema and possible effusion. Also with cardiomegaly. Seen today in consultation on the selective care unit. He is awake and alert in no acute distress. He is maintaining good O2 saturations in the 90s on room air. White count 6.7. Hemoglobin 13.3. INR 1.2. Creatinine 0.69. Troponin 0.035, 0.026. The patient is seen today 06/22/2018 in follow-up on the selective care unit. He is currently awake and alert in no acute distress. He is still having some shortness of breath with minimal activity. Still some shortness of breath with conversation. No improvement today as compared to yesterday. He is maintaining good O2 saturations in the mid 90s on 2 L/m per nasal cannula. He is afebrile. Blood glucose 115. He remains on bronchodilators, IV Solu-Medrol, oral Lasix and Aldactone. Objective - Vital Signs Vital signs: Vital Signs Temp 96.8 F L 06/22/18 12:00 Pulse 88 06/22/18 12:23 Resp 22 06/22/18 12:00 BP 105/68 06/22/18 12:00 Pulse Ox 92 L 06/22/18 12:00 Intake & Output 06/21/18 06/22/18 06/22/18 18:59 06:59 18:59 Intake Total 860 360 Output Total 600 Balance 260 360 Weight 73.2 kg Intake: IV 20 Invasive Line 3 20 Oral 840 360 Output: Urine 600 Other: Voiding Method Toilet Toilet # Voids 1 - Exam GENERAL EXAM: Alert, active, comfortable in no apparent distress. On 2 L/m per nasal cannula. HEAD: Normocephalic. EYES: Normal reaction of pupils, equal size. NOSE: Clear with pink turbinates. THROAT: No erythema or exudates. NECK: No masses, no JVD. CHEST: No chest wall deformity. LUNGS: Equal air entry with echoes in the posterior bases right greater than left, diminished. CVS: S1 and S2 normal with no audible murmur, regular rhythm. ABDOMEN: Slightly distended. Normal bowel sounds, no guarding or rigidity. SPINE: No scoliosis or deformity SKIN: No rashes CENTRAL NERVOUS SYSTEM: No focal deficits, tone is normal in all 4 extremities. EXTREMITIES: There is 1+ peripheral edema. No clubbing, no cyanosis. Peripheral pulses are intact. - Labs CBC & Chem 7: 06/20/18 13:45 06/20/18 13:45 Labs: Abnormal Lab Results - Last 24 Hours (Table) 06/21/18 06/21/18 06/22/18 Range/Units 16:12 21:29 06:22 POC Glucose (mg/dL) 130 H 111 H 121 H (75-99) mg/dL 06/22/18 Range/Units 11:30 POC Glucose (mg/dL) 115 H (75-99) mg/dL Assessment and Plan Assessment: Impression: #1 Dyspnea secondary to recurrent pleural effusions right greater than left. Plan is for repeat thoracentesis on the right today. #2 Acute on chronic systolic/diastolic congestive heart failure with severe refractory ascites. Ejection fraction 20-25%. #3 Lower extremity edema secondary to above. #4 Atrial fibrillation, maintained on Lovenox. #5 Ascites secondary to above most recent paracentesis proximal 1 week ago according to the patient. #6 Recurrent bilateral pleural effusions, most recent thoracentesis on the right side with 2.4 L removed on 06/07/2018. Negative for malignancy. #7 History of laryngeal cancer status post radiation. #8 Hypertension. #9 Diabetes mellitus. #10 Hyperlipidemia. #12 Coronary artery disease with previous stent placement. #13 Poor overall functional performance based on the above-mentioned multiple co morbidities. Plan: The patient was seen and evaluated by Dr. Mc. He will go ahead and plan for a right-sided thoracentesis today. We'll continue with his current medications. Continue IV Solu-Medrol. We'll increase his activity as tolerated. We'll continue to follow. I, the cosigning physician, performed a history & physical examination of the patient. Lungs sounds posterior basilar crackles right greater than left, diminished. Maintaining good O2 saturations in the 90s on 2 L/m per nasal cannula. I discussed the assessment and plan of care with my nurse pract marina, Lorri Hoffmann. I attest to the above note as dictated by her.
[2018-06-22 17:00] LABS: Glucose,Whole Blood 96 mg/dL (75-99)
--- NOTE | 2018-06-22 17:11 | XR ---
EXAMINATION TYPE: XR chest 1V DATE OF EXAM: 06/22/2018 COMPARISON: 06/20/2018 HISTORY: Thoracentesis TECHNIQUE: Single frontal view of the chest is obtained. FINDINGS: There is no overt heart failure nor confluent pneumonic infiltrate. There is coarsening of the interstitial pulmonary markings. There are chest leads. There is no pneumothorax. There is signi ficant decreased right pleural fluid compared to last exam. IMPRESSION: Mild pulmonary congestion without overt heart failure. Significant decreased right pleur al fluid.
[2018-06-22] MEDS: methylPREDNISolone SOD SUCCI 40 MG/ML 1 ML VIAL IV SCH ×2 (17:13→23:56)
--- NOTE | 2018-06-22 17:36 | OP ---
OPERATIVE REPORT PROCEDURE: Thoracentesis. PREOPERATIVE DIAGNOSIS: Right-sided pleural effusion. POSTOPERATIVE DIAGNOSIS: Right-sided pleural effusion. DESCRIPTION OF PROCEDURE: A time-out was completed verifying correct patient, procedure, site, positioning , and implant (s) or special equipment if applicable. Ultrasound guidance was not used and appropriate fluid pocket was identified and marked. Patient was positioned, prepped and draped in usual sterile fashion. Lidocaine was used to anesthetize the area. A thoracentesis catheter was introduced into the pleural space and fluid was removed. Blood loss was none. A chest x-ray was ordered to evaluate for pneumothorax. Total Fluid Removed: 2.4 L of pleural fluid Color of Fluid: Dark yellowish, turbid. Patient tolerated the procedure well and there were no bedside complications or bleeding. MMODL / IJN: [id number] /
[2018-06-22 20:16] LABS: Glucose,Whole Blood 136 mg/dL (75-99)
[2018-06-22] MEDS: ONDANSETRON ODT 4 MG TAB PO PRN (21:01)
[2018-06-23] MEDS: MORPHINE SULFATE 2 MG/ML SYRINGE IVP PRN ×4 (02:13→15:25)
[2018-06-23 06:23] LABS: Glucose,Whole Blood 133 mg/dL (75-99)
[2018-06-23] MEDS: SPIRONOLACTONE 25 MG TAB PO SCH (07:52)
[2018-06-23] MEDS: METOPROLOL TARTRATE 25 MG TAB PO SCH (07:52)
[2018-06-23] MEDS: PANTOPRAZOLE 40 MG TABLET PO SCH (07:52)
[2018-06-23] MEDS: FUROSEMIDE 40 MG TAB PO SCH ×2 (07:53→15:25)
[2018-06-23] MEDS: methylPREDNISolone SOD SUCCI 40 MG/ML 1 ML VIAL IV SCH (07:53)
[2018-06-23] MEDS: ISOSORBIDE MONONITRATE ER 30 MG TAB.ER.24H PO SCH (07:53)
[2018-06-23] MEDS: metFORMIN 500 MG TAB PO SCH (07:53)
[2018-06-23 09:51] VITALS: PULSE 90; TEMP 97.9
[2018-06-23 11:44] LABS: Glucose,Whole Blood 96 mg/dL (75-99)
--- NOTE | 2018-06-23 12:29 | P.DS ---
Providers Date of admission: 06/22/18 14:16 Expected date of discharge: 06/23/18 Attending physician: Andrews Escobar Consults: 06/20/18 17:33 Consult Physician Urgent Consulting Provider: Oliverio Mc Consult Reason/Comments: pleural effusion copd Do you want consulting provider notified?: Yes 06/21/18 09:57 Consult Physician Urgent Consulting Provider: Jose Rafael Sharif Consult Reason/Comments: elevated troponin Do you want consulting provider notified?: Yes Primary care physician: Andrews Escobar Hospital Course: 63-year-old male presented to the emergency room with complaints of increasing shortness of breath. Patient was evaluated by pulmonology had a thoracentesis for 2.4 L of fluid states improvement. Patient has been cleared for discharge by pulmonology Assessment Pleural effusion COPD acute exacerbation acute on chronic Post thoracentesis 2.4 L Chronic atrial fibrillation Coronary disease with history of IA Cardiomyopathy ejection fraction 20-25% chronic systolic dysfunction Persistent abdominal ascites frequent paracentesis Diabetes type 2 History of DVT and pulmonary embolus GERD BPH Plan Follow-up with pulmonology PHYSICIAN Dr. Andrews Escobar see radiology interventionalists for paracentesis before discharge Plan - Discharge Summary Discharge Rx Participant: No New Discharge Prescriptions: New Amoxicillin/Potassium Clav [Augmentin 875-125 Tablet] 1 tab PO Q12HR 10 Days #20 tab Continue Ipratropium-Albuterol Nebulize [Duoneb 0.5 mg-3 mg/3 ml Soln] 3 ml INHALATION RT-QID #120 ampul.neb Metoprolol Tartrate [Lopressor] 75 mg PO BID #60 tab Pantoprazole [Protonix] 40 mg PO AC-BRKFST #30 tablet. Albuterol Inhaler [Ventolin Hfa Inhaler] 2 puff INHALATION RT-Q4H PRN #1 puff PRN Reason: Shortness Of Breath Cyclobenzaprine [Flexeril] 10 mg PO TID PRN #90 tab PRN Reason: Pain Isosorbide Mononitrate ER [Imdur] 30 mg PO DAILY #30 tab.er.24h Nitroglycerin Sl Tabs [Nitrostat] 0.4 mg SUBLINGUAL Q5M PRN #100 tab PRN Reason: Chest Pain metFORMIN HCL [Glucophage] 500 mg PO DAILY Ipratropium/Albuterol Sulfate [Combivent Respimat Inhaler] 2 puff INHALATION RT-QID Ondansetron Odt [Zofran ODT] 4 mg SL BID PRN PRN Reason: Nausea Spironolactone [Aldactone] 50 mg PO BID #120 tab Furosemide [Lasix] 40 mg PO BID #60 tablet Discharge Medication List Albuterol Inhaler [Ventolin Hfa Inhaler] 2 puff INHALATION RT-Q4H PRN #1 puff 03/17/18 [Rx] Cyclobenzaprine [Flexeril] 10 mg PO TID PRN #90 tab 03/17/18 [Rx] Ipratropium-Albuterol Nebulize [Duoneb 0.5 mg-3 mg/3 ml Soln] 3 ml INHALATION RT-QID #120 ampul.neb 03/17/18 [Rx] Isosorbide Mononitrate ER [Imdur] 30 mg PO DAILY #30 tab.er.24h 03/17/18 [Rx] Metoprolol Tartrate [Lopressor] 75 mg PO BID #60 tab 03/17/18 [Rx] Nitroglycerin Sl Tabs [Nitrostat] 0.4 mg SUBLINGUAL Q5M PRN #100 tab 03/17/18 [Rx] Pantoprazole [Protonix] 40 mg PO AC-BRKFST #30 tablet. 03/17/18 [Rx] Ipratropium/Albuterol Sulfate [Combivent Respimat Inhaler] 2 puff INHALATION RT- QID 05/08/18 [History] Ondansetron Odt [Zofran ODT] 4 mg SL BID PRN 05/08/18 [History] metFORMIN HCL [Glucophage] 500 mg PO DAILY 05/08/18 [History] Furosemide [Lasix] 40 mg PO BID #60 tablet 05/11/18 [Rx] Spironolactone [Aldactone] 50 mg PO BID #120 tab 05/11/18 [Rx] Amoxicillin/Potassium Clav [Augmentin 875-125 Tablet] 1 tab PO Q12HR 10 Days #20 tab 06/23/18 [Rx] Follow up Appointment(s)/Referral(s): Andrews Escobar MD [Primary Care Provider] - 06/28/18 10:40 am (Wednesday)
--- NOTE | 2018-06-23 13:22 | US ---
EXAMINATION TYPE: US abdomen limited DATE OF EXAM: 06/23/2018 COMPARISON: US CLINICAL HISTORY: assess for fluid pocket please. Ascites check Fluid visualized in all four quadrants. Largest pocket appears to be RLQ. Exam is limited. IMPRESSION: Moderate ascites
--- NOTE | 2018-06-23 15:28 | P.PN ---
Subjective Progress Note Date: 06/23/18 Principal diagnosis: Dyspnea secondary to recurrent pleural effusions right greater than left This is a very pleasant 63-year-old gentleman who follows with Dr. Escobar as his primary care physician. He has a history of multiple medical problems including chronic atrial fibrillation, coronary artery disease, congestive heart failure, pulmonary embolism, COPD, liver cirrhosis, DVT. He has undergone multiple paracentesis and multiple thoracentesis. Last thoracentesis was done by Dr. Garcia on 2018 on the right lung and 2400 ML's of leslye-colored fluid was removed. Transudate of in nature. He states his last paracentesis was about a week ago. He presented to the emergency room again yesterday with complaints of increasing shortness of breath, cough and congestion. Chest x-ray again shows interval development of a right lower lobe atelectasis versus pneumonia or edema and possible effusion. Also with cardiomegaly. Seen today in consultation on the selective care unit. He is awake and alert in no acute distress. He is maintaining good O2 saturations in the 90s on room air. White count 6.7. Hemoglobin 13.3. INR 1.2. Creatinine 0.69. Troponin 0.035, 0.026. The patient is seen today 06/22/2018 in follow-up on the selective care unit. He is currently awake and alert in no acute distress. He is still having some shortness of breath with minimal activity. Still some shortness of breath with conversation. No improvement today as compared to yesterday. He is maintaining good O2 saturations in the mid 90s on 2 L/m per nasal cannula. He is afebrile. Blood glucose 115. He remains on bronchodilators, IV Solu-Medrol, oral Lasix and Aldactone. On 06/23/2018 patient seen in follow-up on selective care unit. Awake and alert, in no acute distress, he sitting up on the edge the bed, he states his breathing has somewhat improved since the right-sided thoracentesis yesterday, yesterday patient had a right-sided thoracentesis by Dr. Mc, and 2.4 L of pleural fluid has been removed. He still has occasional cough, and bringing up some whitish yellowish colored sputum. [place] of the abdomen was completed, and showed moderate ascites. Patient remains stable. Pulse ox 92%, no fever or chills, no evidence of rest or distress, vital signs have been stable. He continues on oral Lasix, has been started on oral Medrol dosepak for the chest congestion. From pulmonary perspective patient could be considered for discharge home Objective - Vital Signs Vital signs: Vital Signs Temp 97.9 F 06/23/18 12:00 Pulse 90 06/23/18 12:00 Resp 20 06/23/18 12:00 BP 108/62 06/23/18 12:00 Pulse Ox 92 L 06/23/18 12:00 Intake & Output 06/22/18 06/23/18 06/23/18 18:59 06:59 18:59 Intake Total 1080 80 Output Total 2300 250 125 Balance -1220 -250 -45 Weight 76.5 kg Intake: Oral 1080 80 Output: Urine 250 125 Other 2300 Other: Voiding Method Toilet Toilet # Voids 2 1 - Exam GENERAL EXAM: Alert, pleasant, 63-year-old white male comfortable in no apparent distress. HEAD: Normocephalic/atraumatic. EYES: Normal reaction of pupils, equal size. Conjunctiva pink, sclera white. NOSE: Clear with pink turbinates. THROAT: No erythema or exudates. NECK: No masses, no JVD, no thyroid enlargement, no adenopathy. CHEST: No chest wall deformity. Symmetrical expansion. LUNGS: Equal air entry with diminished breath sounds over left base, some diffuse rhonchi CVS: Regular rate and rhythm, normal S1 and S2, no gallops, no murmurs, no rubs ABDOMEN: Soft, nontender. No hepatosplenomegaly, normal bowel sounds, no guarding or rigidity. EXTREMITIES: No clubbing, no edema, no cyanosis, 2+ pulses and upper and lower extremities. MUSCULOSKELETAL: Muscle strength and tone normal. SPINE: No scoliosis or deformity SKIN: No rashes CENTRAL NERVOUS SYSTEM: Alert and oriented -3. No focal deficits, tone is normal in all 4 extremities. PSYCHIATRIC: Alert and oriented -3. Appropriate affect. Intact judgment and insight. - Labs CBC & Chem 7: 06/20/18 13:45 06/20/18 13:45 Labs: Abnormal Lab Results - Last 24 Hours (Table) 06/22/18 06/23/18 Range/Units 20:14 06:21 POC Glucose (mg/dL) 136 H 133 H (75-99) mg/dL Assessment and Plan Plan: Assessment #1 Dyspnea secondary to recurrent pleural effusions right greater than left. Plan is for repeat thoracentesis on the right today. #2 Acute on chronic systolic/diastolic congestive heart failure with severe refractory ascites. Ejection fraction 20-25%. #3 Lower extremity edema secondary to above. #4 Atrial fibrillation, maintained on Lovenox. #5 Ascites secondary to above most recent paracentesis proximal 1 week ago according to the patient. #6 Recurrent bilateral pleural effusions, most recent thoracentesis on the right side with 2.4 L removed on 06/07/2018. Negative for malignancy. Status post right-sided thoracentesis would removal of 2.4 L of pleural fluid on 06/22/2018 #7 History of laryngeal cancer status post radiation. #8 Hypertension. #9 Diabetes mellitus. #10 Hyperlipidemia. #12 Coronary artery disease with previous stent placement. #13 Poor overall functional performance based on the above-mentioned multiple comorbidities. Plan: Continue oral diuretics, will add Medrol Dosepak, patient has some cough and congestion, but overall he states he is breathing better after having the right thoracentesis yesterday. Vital signs remain stable, he is going to be evaluated for possible repeat paracentesis today. From pulmonary perspective patient co uld be considered for discharge home today. We'll follow on as-needed basis. I performed a history & physical examination of the patient and discussed their management with my nurse practitioner, Vika Aceves. I reviewed the nurse practitioner's note and agree with the documented findings and plan of care. Lung sounds are positive for diffuse wheezes throughout the lung figueroa. The findings and the impression was discussed with the patient. I attest to the documentation by the nurse practitioner. Time with Patient: Less than 30
[2018-06-23 16:13] VITALS: BP 103/59; RESP 22
[2018-06-23 16:52] LABS: Glucose,Whole Blood 94 mg/dL (75-99)
[2018-06-24] MEDS ORDERED: methylPREDNISolone 4 MG TAB TAPER PO SCH (09:00)
== END 2018-06-23 17:25 | disposition home or self-care (01) | DRG 292 ==
LOC: EC 12:35 → 3SCARD 16:10 → OBSVTOIN 06-22 14:16
PROVIDERS: ADMIT Family Medicine; ATTEND Family Medicine
PROC: 0W993ZZ Drainage of Right Pleural Cavity, Percutaneous Approach (ICD-10-PCS; principal; 2018-06-22)
DX: I11.0 Hypertensive heart disease with heart failure (principal); J91.8 Pleural effusion in other conditions classified elsewhere; J44.1 Chronic obstructive pulmonary disease with (acute) exacerbation; R18.8 Other ascites; I50.43 Acute on chronic combined systolic (congestive) and diastolic (congestive) heart failure; E11.51 Type 2 diabetes mellitus with diabetic peripheral angiopathy without gangrene; Z79.84 Long term (current) use of oral hypoglycemic drugs; E78.5 Hyperlipidemia, unspecified; F17.210 Nicotine dependence, cigarettes, uncomplicated; F32.9 Major depressive disorder, single episode, unspecified; F41.9 Anxiety disorder, unspecified; G89.29 Other chronic pain; I25.10 Atherosclerotic heart disease of native coronary artery without angina pectoris; I25.2 Old myocardial infarction; I27.20 Pulmonary hypertension, unspecified; I25.5 Ischemic cardiomyopathy; I48.2 Chronic atrial fibrillation; K21.9 Gastro-esophageal reflux disease without esophagitis; K74.60 Unspecified cirrhosis of liver; N40.0 Benign prostatic hyperplasia without lower urinary tract symptoms; Z53.20 Procedure and treatment not carried out because of patient's decision for unspecified reasons; Z79.899 Other long term (current) drug therapy; Z82.49 Family history of ischemic heart disease and other diseases of the circulatory system; Z83.3 Family history of diabetes mellitus; Z85.21 Personal history of malignant neoplasm of larynx; Z86.711 Personal history of pulmonary embolism; Z86.718 Personal history of other venous thrombosis and embolism; I69.334 Monoplegia of upper limb following cerebral infarction affecting left non-dominant side; Z92.3 Personal history of irradiation; Z95.5 Presence of coronary angioplasty implant and graft; R13.10 Dysphagia, unspecified; G56.03 Carpal tunnel syndrome, bilateral upper limbs; Z88.5 Allergy status to narcotic agent; Z88.8 Allergy status to other drugs, medicaments and biological substances
CPT/HCPCS: 36415; 71045; 71046; 76705; 80053; 83880; 84484; 85025; 85610; 85730; 93005; 94640; 94760; 99285

== ENCOUNTER 2018-06-27 11:47 | Day surgery (SDC) | payer OTHER ==
[2018-06-27] MEDS ORDERED: ALBUMIN HUMAN 25% 50 ML in EMPTY BAG 1 BAG IVPB SCH (12:45)
[2018-06-27 12:46] LABS: Mean Platelet Volume 7.6; Platelet Count 212 k/uL (150-450)
[2018-06-27 12:48] LABS: INR 1.2 (<1.2); Prothrombin Time 12.1 sec (9.0-12.0)
[2018-06-27 13:12] VITALS: TEMP 97.9
[2018-06-27 14:06] VITALS: RESP 18
[2018-06-27 14:14] VITALS: BP 129/66; PULSE 106
--- NOTE | 2018-06-28 08:32 | US ---
Therapeutic paracentesis. DATE OF EXAM: 06/27/2018 CLINICAL HISTORY: Ascites The procedure was discussed with the patient. The risks, complications, benefits, and alternatives we re discussed and any questions were answered. Informed consent was obtained. The patient was placed s upine on the ultrasound table and prepped and draped in the usual sterile fashion. All elements of maximal barrier technique were utilized. Under ultrasound guidance, access into the right lower quadrant was obtained, via the paracentesis catheter system and direct ultrasound guidanc e. Approximately 1.9 liters of straw-colored fluid was removed. The patient was stable throughout the pr ocedure and remained stable upon discharge from Department of Radiology. IMPRESSION: Successful therapeutic paracentesis under ultrasound guidance.
== END 2018-06-27 14:18 | disposition home or self-care (01) ==
LOC: RADPROMAIN 11:47
DX: R18.8 Other ascites (principal)
CPT/HCPCS: 49083; 82565; 85049; 85610

== ENCOUNTER 2018-07-07 11:04 | Inpatient (IN) | payer OTHER ==
[2018-07-07] MEDS ORDERED: ASPIRIN 81 MG PO STA (11:26)
[2018-07-07] MEDS ORDERED: NITROGLYCERIN SL TABS 0.4 MG TAB SUBLINGUAL STA ×3 (11:26)
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
[2018-07-07 11:51] LABS: Anisocytosis Slight; Basophils % (A) 0 %; Eosinophils # (A) 0.2 k/uL (0-0.7); Eosinophils % (A) 4 %; HCT 42.7 % (39.0-53.0); Hypochromasia Moderate; Lymphocytes # (A) 0.5 k/uL (1.0-4.8); Lymphocytes % (A) 10 %; MCH 27.1 pg (25.0-35.0); MCHC 30.4 g/dL (31.0-37.0); MCV 89.2 fL (80.0-100.0); Mean Platelet Volume 7.2; Monocytes # (A) 0.4 k/uL (0-1.0); Monocytes % (A) 8 %; Neutrophils # (A) 4.1 k/uL (1.3-7.7); Neutrophils % (A) 75 %; Platelet Count 200 k/uL (150-450); RBC 4.79 m/uL (4.30-5.90); RDW 18.1 % (11.5-15.5); WBC 5.4 k/uL (3.8-10.6)
[2018-07-07 12:01] LABS: ALT 32 U/L (21-72); AST 30 U/L (17-59); Albumin 3.6 g/dL (3.5-5.0); Alkaline Phosphatase 409 U/L (38-126); Amylase 37 U/L (30-110); Anion Gap 5 mmol/L; Blood Urea Nitrogen 16 mg/dL (9-20); Calcium 8.9 mg/dL (8.4-10.2); Carbon Dioxide 29 mmol/L (22-30); Chloride 103 mmol/L (98-107); Creatine Kinase 102 U/L (55-170); Glucose 90 mg/dL (74-99); Lipase 29 U/L (23-300); Magnesium 1.8 mg/dL (1.6-2.3); Potassium 4.3 mmol/L (3.5-5.1); Sodium 137 mmol/L (137-145); Total Bilirubin 1.2 mg/dL (0.2-1.3)
--- NOTE | 2018-07-07 12:12 | XR ---
2 view chest x-ray HISTORY: Chest pain and shortness of breath 2 views of the chest correlated to prior exam 06/22/2017 There has been interval development of increased density right lung base. Question some perihilar air space disease. No pneumothorax. Heart size is enlarged. Postop change noted to the cervical spine. Th ere are cardiac leads. IMPRESSION: Pleural effusion and associated atelectasis, correlate to exclude congestive heart failur e. Follow-up recommended.
[2018-07-07 12:29] LABS: INR 1.1 (<1.2); Partial Thromboplastin Time 21.5 sec (22.0-30.0); Prothrombin Time 11.9 sec (9.0-12.0)
[2018-07-07] MEDS ORDERED: MORPHINE SULFATE 4 MG/ML SYRINGE IV STA (13:25)
[2018-07-07] MEDS ORDERED: ASPIRIN 325 MG TAB PO STA (13:28)
[2018-07-07] MEDS: FUROSEMIDE 10 MG/ML 4 ML VIAL IV SCH ×2 (18:21→23:36)
[2018-07-07] MEDS: NITROGLYCERIN OINT 1 INCH/GM PACKET TOPICAL SCH ×2 (18:22→22:33)
[2018-07-07] MEDS ORDERED: NITROGLYCERIN SL TABS 0.4 MG TAB SUBLINGUAL PRN (18:44)
[2018-07-07] MEDS: IPRATROPIUM-ALBUTEROL 3 ML NEB INHALATION SCH (18:58)
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
[2018-07-07] MEDS: HYDROcodone/APAP 5-325MG 1 EACH TAB PO PRN (20:20)
[2018-07-07] MEDS: CYCLOBENZAPRINE 10 MG TAB PO PRN (20:20)
[2018-07-07] MEDS: SPIRONOLACTONE 25 MG TAB PO SCH (20:21)
[2018-07-07] MEDS: METOPROLOL TARTRATE 25 MG TAB PO SCH (20:22)
[2018-07-07] MEDS: ENOXAPARIN 80 MG/0.8 ML SYRINGE SQ SCH (20:22)
--- NOTE | 2018-07-07 23:13 | CONS ---
PAPITO Dubois is a 63-year-old gentleman with a history of hypertension, diabetes and congestive heart failure who is admitted to hospital with symptoms of shortness of breath. The patient had been in the hospital just 2 weeks ago with CHF exacerbation. Patient also has COPD and has had COPD exacerbation. At the time of my evaluation in the hospital, he appears comfortable at rest, does not seem to be in respiratory distress. He has mild atypical chest pain also. PAST MEDICAL HISTORY: Significant for COPD, hypertension, diabetes. CURRENT MEDICATIONS: As charted. I reviewed them. ALLERGIES: Allergies are as charted. I reviewed. REVIEW OF SYSTEMS: HEENT is unremarkable. CARDIAC: As described above. RESPIRATORY: As described above. GI: Significant for abdominal distention. PSYCHOSOCIAL: Negative. ENDOCRINE: Negative. DERMATOLOGY: Negative. CONSTITUTIONAL: Negative. ONCOLOGICAL: Negative. Rest of the system review is not relevant. PHYSICAL EXAMINATION: On exam, patient is comfortable at rest. VITAL SIGNS: Stable. Chest exam reveals diminished air entry. Heart exam reveals first and second heart sounds. No gallop. ABDOMEN: Soft. It appears distended. Examination of extremities reveals mild edema. Peripheral pulses are felt. LABS: Hemoglobin 13, platelet count 200. Potassium 4.3. Creatinine is 0.59. BNP is elevated. Troponin is normal. EKG shows atrial fibrillation with PVCs and nonspecific ST-T wave changes. ASSESSMENT: 1. Chronic systolic heart failure secondary to left ventricular systolic dysfunction. 2. Chronic obstructive pulmonary disease. 3. Chronic atrial fibrillation. 4. [id number] diabetes. 5. Pleural effusion. 6. Ascites. PLAN: Please continue the patient on IV Lasix. His chest discomfort is atypical and does not require further workup at this time. I reviewed the 2D echo done on him recently and it shows severe LV systolic dysfunction. MMODL / IJN: [id number] /
[2018-07-08] MEDS: HYDROcodone/APAP 5-325MG 1 EACH TAB PO PRN ×5 (02:27→21:32)
[2018-07-08] MEDS: CYCLOBENZAPRINE 10 MG TAB PO PRN ×2 (07:16→21:32)
[2018-07-08] MEDS: PANTOPRAZOLE 40 MG TABLET PO SCH (07:16)
[2018-07-08 07:27] LABS: Anisocytosis Slight; Basophils # (A) 0.1 k/uL (0-0.2); Basophils % (A) 1 %; Eosinophils # (A) 0.2 k/uL (0-0.7); Eosinophils % (A) 5 %; HCT 42.1 % (39.0-53.0); HGB 12.8 gm/dL (13.0-17.5); Hypochromasia Moderate; Lymphocytes # (A) 0.5 k/uL (1.0-4.8); Lymphocytes % (A) 10 %; MCH 27.3 pg (25.0-35.0); MCHC 30.4 g/dL (31.0-37.0); MCV 89.8 fL (80.0-100.0); Mean Platelet Volume 7.3; Monocytes # (A) 0.4 k/uL (0-1.0); Monocytes % (A) 9 %; Neutrophils # (A) 3.6 k/uL (1.3-7.7); Neutrophils % (A) 73 %; Platelet Count 219 k/uL (150-450); RBC 4.68 m/uL (4.30-5.90); RDW 18.1 % (11.5-15.5)
[2018-07-08 07:47] LABS: Anion Gap 6 mmol/L; Blood Urea Nitrogen 16 mg/dL (9-20); Carbon Dioxide 30 mmol/L (22-30); Chloride 102 mmol/L (98-107); Glucose 86 mg/dL (74-99); Potassium 4.2 mmol/L (3.5-5.1); Sodium 138 mmol/L (137-145)
[2018-07-08] MEDS: ENOXAPARIN 80 MG/0.8 ML SYRINGE SQ SCH ×2 (08:52→21:32)
[2018-07-08] MEDS: ASPIRIN 81 MG PO SCH (08:52)
[2018-07-08] MEDS ORDERED: ASPIRIN 325 MG TAB PO SCH (09:00)
[2018-07-08] MEDS: IPRATROPIUM-ALBUTEROL 3 ML NEB INHALATION SCH ×4 (09:20→19:42)
[2018-07-08 11:40] VITALS: BMI 25.7
[2018-07-08 11:53] LABS: Glucose,Whole Blood 102 mg/dL (75-99)
[2018-07-08] MEDS: FUROSEMIDE 10 MG/ML 4 ML VIAL IV SCH ×2 (12:00→16:59)
[2018-07-08] MEDS: ISOSORBIDE MONONITRATE ER 30 MG TAB.ER.24H PO SCH (12:06)
[2018-07-08] MEDS: SPIRONOLACTONE 25 MG TAB PO SCH ×2 (12:07→21:33)
[2018-07-08] MEDS: METOPROLOL TARTRATE 25 MG TAB PO SCH ×2 (12:09→21:33)
--- NOTE | 2018-07-08 13:11 | PN ---
PROGRESS NOTE Silvino Monet is admitted to hospital with symptoms of shortness of breath secondary to congestive heart failure. He also has COPD, chronic atrial fibrillation, and ascites. This morning he is feeling somewhat better. He is on Lovenox, Lasix IV q.8, Imdur, Lopressor and Aldactone. PHYSICAL EXAMINATION: On exam, heart rate is 72 beats per minute, blood pressure is 115/70, respiratory rate is 18. Chest exam reveals diminished air entry at the bases. Heart exam reveals first and second heart sounds. No gallop. Examination of extremities revealed trace edema. Peripheral pulses are felt. ASSESSMENT: 1. Chronic systolic heart failure. 2. Chronic atrial fibrillation with controlled ventricular rate. 3. History of ascites. PLAN: The patient has chronic atrial fibrillation, but was thought not to be a candidate for long-term anticoagulation. Continue with the IV Lasix at this time. MMPIETROL / ARELYN: [id number] /
--- NOTE | 2018-07-08 14:41 | US ---
EXAMINATION TYPE: US chest DATE OF EXAM: 07/08/2018 COMPARISON: NONE CLINICAL HISTORY: right pleural effusion. Right pleural effusion TECHNIQUE: Targeted ultrasound of the posterior lower right hemithorax EXAM MEASUREMENTS: Right Pleural Effusion pocket size: 8.7 cm Right skin surface to fluid distance: 2.6 cm Right side MARKED for possible thoracentesis outside the dept. Pulmonologists are able to review the images in the patient?s EMR. IMPRESSIONS: 1. Right pleural effusion.
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
[2018-07-08 16:16] LABS: Glucose,Whole Blood 80 mg/dL (75-99)
--- NOTE | 2018-07-08 16:24 | XR ---
EXAMINATION TYPE: XR chest 1V portable DATE OF EXAM: 07/08/2018 HISTORY: Shortness of breath. COMPARISON: 07/07/2018 TECHNIQUE: Single view of the chest is submitted. FINDINGS: Demonstrated are scattered senescent parenchymal change. No evidence for pneumothorax in a patient status post thoracentesis. Persistent right basilar opacity reflecting a combination of effusion, atelectasis and/or infiltrate. The heart is stable. Hilar and mediastinal structures are within normal limits. Degenerative changes are seen of the dorsal spine. IMPRESSION: 1. No evidence for pneumothorax in a patient status post thoracentesis. Persistent right basilar opa city reflecting a combination of effusion, atelectasis and/or infiltrate.
--- NOTE | 2018-07-08 17:10 | PCN ---
PROCEDURE NOTE PROCEDURE: Right-sided thoracentesis. OPERATORS: 1. Dr. Thomason. 2. Dr. Frankie Aceves. INDICATION: Pleural effusion. DESCRIPTION OF PROCEDURE: A time-out was completed verifying correct patient, procedure, site, positioning , and implant (s) or special equipment if applicable. Ultrasound guidance was used and appropriate fluid pocket was identified and marked. Patient was positioned, prepped and draped in usual sterile fashion. Lidocaine was used to anesthetize the area. A thoracentesis catheter was introduced into the pleural space and fluid was removed. Blood loss was none. A chest x-ray was ordered to evaluate for pneumothorax. Total Fluid Removed: 700 mL Fluid was not sent for analysis, as previous thoracenteses were always sent for analysis. Patient tolerated the procedure well and there was no immediate complication. MMODL / IJN: [id number] /
--- NOTE | 2018-07-08 18:13 | P.PN ---
Subjective this is a pleasant 62 yo M with pmh of liver disease , severe ischemic cardiomyopathy with EF of 20-25%, a fib, HTN, COPD, CVA/TIA, dm, DVT/PE, GERD, pulmonary hypertension, laryngeal cancer , status post radiotherapy who presents with chest pain of one day duration , mainly in the left upper chest radiating down all the way to the lower abd as per pt going across the lower abd to the left side, started sever 12/22 coming down to 7/10.he was recently discharged from the hospital for ascites and pleural effusion. , he has some dyspena , with cough and clear phlegm 07/08/2018 Patient this morning states that his chest pain is slightly improved down to 7/10 in severity compared to 11/22 yesterday. However he remains dyspneic with some cough and clear phlegm. Distal has an wheezings on both lung figueroa. R on patient has been evaluated by pulmonary team and he underwent thoracocentesis was 700 mL of fluids was taken out. As per cardiology the patient not a candidate for anticoagulation for his atrial fibrillation, and recommended to continue with IV Lasix. Patient was checked and he was taking norco 07/15/2024 milligrams every 4 hours by his PCP which was restarted upon his request. Risks benefits and alternatives are explained for him including but not limited to the risk of respiratory failure and Objective - Vital Signs Vital signs: Vital Signs Temp 97.9 F 07/08/18 16:00 Pulse 72 07/08/18 16:05 Resp 18 07/08/18 16:00 BP 105/70 07/08/18 16:00 Pulse Ox 98 07/08/18 16:00 Intake & Output 07/07/18 07/08/18 07/08/18 18:59 06:59 18:59 Intake Total 440 1500 Balance 440 1500 Weight 74.843 kg 74.7 kg 74.7 kg Intake: Oral 440 1500 Other: # Voids 0 1 2 # Bowel Movements 0 - Exam GENERAL: The patient is alert and oriented x3, not in any acute distress. Well developed, well nourished. HEENT: Pupils are round and equally reacting to light. EOMI. No scleral icterus. No conjunctival pallor. Normocephalic, atraumatic. No pharyngeal erythema. No thyromegaly. CARDIOVASCULAR: S1 and S2 present. No murmurs, rubs, or gallops. PULMONARY: Chest is clear to auscultation, no wheezing or crackles. ABDOMEN: Soft, nontender, nondistended, normoactive bowel sounds. No palpable organomegaly. MUSCULOSKELETAL: No joint swelling or deformity. EXTREMITIES: No cyanosis, clubbing, or pedal edema. NEUROLOGICAL: Gross neurological examination did not reveal any focal deficits. SKIN: No rashes. - Labs CBC & Chem 7: 07/08/18 06:47 07/08/18 06:47 Labs: Abnormal Lab Results - Last 24 Hours (Table) 07/08/18 07/08/18 07/08/18 Range/Units 06:47 06:47 11:32 Hgb 12.8 L (13.0-17.5) gm/dL MCHC 30.4 L (31.0-37.0) g/dL RDW 18.1 H (11.5-15.5) % Lymphocytes # 0.5 L (1.0-4.8) k/uL Creatinine 0.57 L (0.66-1.25) mg/dL POC Glucose (mg/dL) 102 H (75-99) mg/dL Assessment and Plan Assessment: chest pain , rule out cardiac causes recurrent pleural effusion severe ischemic cardiomyopathy with EF of 20-25% chronic a fib hypertension COPD, NOt in acute exacerbation H/O CVA/TIA H/O GERD Diabetes Mellitus h/o pulmonary hypertension h/o laryngeal ca , with hoarseness of voice, s/p radiotherapy Plan: this is a pleasant 63 yo M who presents with chest pain an dyspnea , called cardiology consut, he is already on lovenox, call pulmonary consult for evaluation of his pulmonary function and pleural fluid. pain management Labs and medication were reviewed.. Continue same treatment. Continue with symptomatic treatment. Resume home medication. Monitor lytes and vitals. DVT and GI prophylaxis. Further recommendations of the clinical course of the patient DVT prophylaxis:lovenox GI Prophylaxis: Ppi Prognosis is guarded
[2018-07-08 20:40] LABS: Glucose,Whole Blood 84 mg/dL (75-99)
[2018-07-09] MEDS: FUROSEMIDE 10 MG/ML 4 ML VIAL IV SCH ×3 (00:01→16:35)
[2018-07-09] MEDS: HYDROcodone/APAP 5-325MG 1 EACH TAB PO PRN ×5 (04:52→21:55)
[2018-07-09] MEDS: CYCLOBENZAPRINE 10 MG TAB PO PRN ×3 (04:52→21:59)
[2018-07-09] MEDS: PANTOPRAZOLE 40 MG TABLET PO SCH (06:22)
[2018-07-09 06:36] LABS: Glucose,Whole Blood 87 mg/dL (75-99)
[2018-07-09 07:16] LABS: Anion Gap 7 mmol/L; Blood Urea Nitrogen 24 mg/dL (9-20); Carbon Dioxide 34 mmol/L (22-30); Chloride 97 mmol/L (98-107); Glucose 88 mg/dL (74-99); Potassium 4.5 mmol/L (3.5-5.1); Sodium 138 mmol/L (137-145)
[2018-07-09] MEDS: IPRATROPIUM-ALBUTEROL 3 ML NEB INHALATION SCH ×4 (07:34→19:23)
[2018-07-09] MEDS: METOPROLOL TARTRATE 25 MG TAB PO SCH ×2 (08:58→21:55)
[2018-07-09] MEDS: SPIRONOLACTONE 25 MG TAB PO SCH ×2 (08:59→21:55)
[2018-07-09] MEDS: ISOSORBIDE MONONITRATE ER 30 MG TAB.ER.24H PO SCH (08:59)
[2018-07-09] MEDS: ASPIRIN 81 MG PO SCH (08:59)
[2018-07-09] MEDS: ENOXAPARIN 80 MG/0.8 ML SYRINGE SQ SCH ×2 (09:01→21:54)
[2018-07-09 12:14] LABS: Glucose,Whole Blood 130 mg/dL (75-99)
--- NOTE | 2018-07-09 13:01 | P.PN ---
Subjective Progress Note Date: 07/09/18 Principal diagnosis: Dyspnea secondary to recurrent pleural effusion. This is a 63-year-old white male with past medical history of chronic systolic/diastolic congestive heart failure with severe refractory ascites requiring frequent paracentesis, cardiomyopathy with ejection fraction of 20- 25%, chronic A. fib, recurrent history of pleural effusions on the right requiring frequent thoracentesis, history of hypertension, diabetes mellitus, laryngeal cancer status post radiation, coronary artery disease with previous stent placement. We've seen this patient in consultation on multiple occasions in regards to recurrent right-sided pleural effusion and have had to do a right- sided thoracentesis on multiple occasions. Last time patient had his right- sided thoracentesis was on 06/22/2018 with removal of 2.4 L of pleural fluid. Patient had ultrasound-guided paracentesis on 06/27/2018 with removal of 1.9 L of straw-colored fluid. Previous cytology of the pleural and peritoneal fluid did not show any cytologically malignant cells. Pleural fluid analysis showed transudative fluid. on 07/07/2018 patient presented to the emergency department complaints of worsening shortness of breath, with chest discomfort associated with dyspnea. Denied any fever or chills, no significant cough, chest congestion. He noted some increased swelling in his lower extremities, no nausea, vomiting or diarrhea. He discomfort in his right chest. Chest x-ray showed a pleural effu bhumi and associated atelectasis on the right. EKG showed atrial fibrillation with PVCs, incomplete right bundle branch block and inferior infarct of undetermined age as well as anterior infarct of undetermined age. White blood cell count was 5.4, hemoglobin is 13.0, INR is 1.1, electrolytes were within normal limits, BUN 16 creatinine was 0.59, troponin was 0.018, proBNP was 3650. He is afebrile, he is on 3 L of oxygen his pulse ox is 96%. We asked to see the patient in evaluation for possible thoracentesis for his recurrent right-sided pleural effusion the patient is seen today 07/09/2018 in follow-up on the selective care unit. He is currently sitting up in a chair at the bedside. Awake and alert in no acute distress. He is status post thoracentesis on the right with 700 ML's of fluid removed.maintaining O2 saturations in the 90s on room air. He is afebrile. Hemodynamically stable. Bicarb 34. Creatinine 0.67. Remains on bronchodilators. Objective - Vital Signs Vital signs: Vital Signs Temp 97.1 F L 07/09/18 08:56 Pulse 76 07/09/18 11:35 Resp 18 07/09/18 08:56 BP 101/63 07/09/18 08:56 Pulse Ox 93 L 07/09/18 08:56 Intake & Output 07/08/18 07/09/18 07/09/18 18:59 06:59 18:59 Intake Total 1500 400 360 Output Total 700 Balance 1500 -300 360 Weight 74.7 kg 72.6 kg Intake: Oral 1500 400 360 Output: Urine 700 Other: # Voids 1 - Exam GENERAL EXAM: Alert, pleasant, 63-year-old white male, comfortable in no apparent distress. On room air. HEAD: Normocephalic/atraumatic. EYES: Normal reaction of pupils, equal size. Conjunctiva pink, sclera white. NOSE: Clear with pink turbinates. THROAT: No erythema or exudates. NECK: No masses, no JVD, no thyroid enlargement, no adenopathy. CHEST: No chest wall deformity. Symmetrical expansion. LUNGS: Equal air entry with diminished breath sounds on the right CVS: Regular rate and rhythm, normal S1 and S2, no gallops, no murmurs, no rubs ABDOMEN: Soft, nontender. No hepatosplenomegaly, normal bowel sounds, no guarding or rigidity. EXTREMITIES: No clubbing, no edema, no cyanosis, 2+ pulses and upper and lower extremities. MUSCULOSKELETAL: Muscle strength and tone normal. SPINE: No scoliosis or deformity SKIN: No rashes CENTRAL NERVOUS SYSTEM: No focal deficits, tone is normal in all 4 extremities. PSYCHIATRIC: Alert and oriented -3. Appropriate affect. Intact judgment and insight. - Labs CBC & Chem 7: 07/08/18 06:47 07/09/18 06:07 Labs: Abnormal Lab Results - Last 24 Hours (Table) 07/09/18 07/09/18 Range/Units 06:07 11:48 Chloride 97 L (98-107) mmol/L Carbon Dioxide 34 H (22-30) mmol/L BUN 24 H (9-20) mg/dL POC Glucose (mg/dL) 130 H (75-99) mg/dL Assessment and Plan Assessment: Assessment #1. Dyspnea related to recurrent right-sided pleural effusion, patient has had multiple thoracentesis for recurrent right-sided pleural effusion, status post right-sided thoracentesis on 07/09/2018 was 700 ML's of fluid returned. #2. Acute on chronic congestive heart failure with systolic and diastolic dysfunction, with severe refractory ascites requiring frequent paracentesis, ejection fraction of 20-25% #3. History of lower extremity edema #4. Chronic atrial fibrillation #5. Recurrent ascites, with most recent paracentesis on 06/27/2018 #6. History of laryngeal cancer treated with radiation #7. Hypertention, hyperlipidemia #8. Diabetes mellitus #9. Coronary artery disease with previous history of stent placement #10. Overall poor functional performance related to multiple comorbidities Plan: The patient was seen and evaluated by Dr. Thomason. He is currently stable from the pulmonary standpoint and could be discharged home on his home pulmonary medications. He would probably benefit from routine scheduling of thoracentesis along with his usual scheduled paracentesis per interventional radiology. I, the cosigning physician, performed a history & physical examination of the patient. Lungs sounds diminished in the right lung base. Maintaining good O2 saturations in the 90s on room air. I discussed the assessment and plan of care with my nurse practitioner, Lorri Hoffmann. I attest to the above note as dictated by her.
--- NOTE | 2018-07-09 13:05 | P.PN ---
Subjective Progress Note Date: 07/09/18 This is a 63-year-old white male with past medical history of chronic systolic/diastolic congestive heart failure with severe refractory ascites requiring frequent paracentesis, cardiomyopathy with ejection fraction of 20- 25%, chronic A. fib, recurrent history of pleural effusions on the right requiring frequent thoracentesis, history of hypertension, diabetes mellitus, laryngeal cancer status post radiation, coronary artery disease with previous stent placement. is under to the hospital on this occasion with symptoms again of progressively worsening shortness of breath. Patient has had recurrent p leural effusions and again was found to have a pleural effusion on this admission, underwent thoracentesis. Continues at this time to be on IV Lasix.overall he does state that he's feeling better but continues to have 1-2+ bilateral peripheral edema.blood pressure 100/60 with a heart rate in the 70s, 93% on room air. Objective - Vital Signs Vital signs: Vital Signs Temp 97.1 F L 07/09/18 08:56 Pulse 76 07/09/18 11:35 Resp 18 07/09/18 08:56 BP 101/63 07/09/18 08:56 Pulse Ox 93 L 07/09/18 08:56 Intake & Output 07/08/18 07/09/18 07/09/18 18:59 06:59 18:59 Intake Total 1500 400 360 Output Total 700 Balance 1500 -300 360 Weight 74.7 kg 72.6 kg Intake: Oral 1500 400 360 Output: Urine 700 Other: # Voids 1 - Exam GENERAL EXAM: Alert, pleasant, 63-year-old white male, comfortable in no apparent distress. HEAD: Normocephalic/atraumatic. EYES: Normal reaction of pupils, equal size. Conjunctiva pink, sclera white. NOSE: Clear with pink turbinates. THROAT: No erythema or exudates. NECK: No masses, no JVD, no thyroid enlargement, no adenopathy. CHEST: No chest wall deformity. Symmetrical expansion. LUNGS: Equal air entry with diminished breath sounds on the right CVS: Regular rate and rhythm, normal S1 and S2, no gallops, no murmurs, no rubs ABDOMEN: Soft, nontender. No hepatosplenomegaly, normal bowel sounds, no g uarding or rigidity. EXTREMITIES: No clubbing, no edema, no cyanosis, 2+ pulses and upper and lower extremities. MUSCULOSKELETAL: Muscle strength and tone normal. SPINE: No scoliosis or deformity SKIN: No rashes CENTRAL NERVOUS SYSTEM: Alert and oriented -3. No focal deficits, tone is normal in all 4 extremities. PSYCHIATRIC: Alert and oriented -3. Appropriate affect. Intact judgment and insight. - Labs CBC & Chem 7: 07/08/18 06:47 07/09/18 06:07 Labs: Abnormal Lab Results - Last 24 Hours (Table) 07/09/18 07/09/18 Range/Units 06:07 11:48 Chloride 97 L (98-107) mmol/L Carbon Dioxide 34 H (22-30) mmol/L BUN 24 H (9-20) mg/dL POC Glucose (mg/dL) 130 H (75-99) mg/dL Assessment and Plan Plan: Assessment #1. Dyspnea related to recurrent right-sided pleural effusion, patient has had multiple thoracentesis for recurrent right-sided pleural effusion, with the latest thoracentesis is being on 06/22/2018 would removal of 2.4 L of pleural f luid. \ #2. Acute on chronic congestive heart failure with systolic and diastolic dysfunction, with severe refractory ascites requiring frequent paracentesis, ejection fraction of 20-25% #3. History of lower extremity edema #4. Chronic atrial fibrillation #5. Recurrent ascites, with most recent paracentesis on 06/27/2018 #6. History of laryngeal cancer treated with radiation #7. Hypertention, hyperlipidemia #8. Diabetes mellitus #9. Coronary artery disease with previous history of stent placement plan From cardiology's perspective we'll recommend to continue the patient on his current dose of IV Lasix. Check labs in the morning. DNP note has been reviewed, I agree with a documented findings and plan of care. Patient was seen and examined.
[2018-07-09 17:05] LABS: Glucose,Whole Blood 92 mg/dL (75-99)
--- NOTE | 2018-07-09 18:34 | P.PN ---
Subjective this is a pleasant 62 yo M with pmh of liver disease , severe ischemic cardiomyopathy with EF of 20-25%, a fib, HTN, COPD, CVA/TIA, dm, DVT/PE, GERD, pulmonary hypertension, laryngeal cancer , status post radiotherapy who presents with chest pain of one day duration , mainly in the left upper chest radiating down all the way to the lower abd as per pt going across the lower abd to the left side, started sever 10/10 coming down to 7/10.he was recently discharged from the hospital for ascites and pleural effusion. , he has some dyspena , with cough and clear phlegm 07/08/2018 Patient this morning states that his chest pain is slightly improved down to 7/10 in severity compared to 9/10 yesterday. However he remains dyspneic with some cough and clear phlegm. Distal has an wheezings on both lung figueroa. R on patient has been evaluated by pulmonary team and he underwent thoracocentesis was 700 mL of fluids was taken out. As per cardiology the patient not a candidate for anticoagulation for his atrial fibrillation, and recommended to continue with IV Lasix. Patient was checked and he was taking norco 07/15/2024 milligrams every 4 hours by his PCP which was restarted upon his request. Risks benefits and alternatives are explained for him including but not limited to the risk of respiratory failure and 07/09/2018 Patient still has chest pain of 7/10. His dyspnea and cough are improving. He is less wheezing today. Patient underwent thoracocentesis as above. Previous currently on Lovenox because of his frequent need for procedures like thoracocentesis. And a difficult every 2 weeks as he was told me. Patient does not need any more oxygen and he is on room air at 94% saturation. He is afebrile. Cardiology team and recommended to continue with IV Lasix. Objective - Vital Signs Vital signs: Vital Signs Temp 97.5 F L 07/09/18 14:08 Pulse 83 07/09/18 16:00 Resp 18 07/09/18 16:00 BP 104/59 07/09/18 14:08 Pulse Ox 94 L 07/09/18 14:08 Intake & Output 07/08/18 07/09/18 07/09/18 18:59 06:59 18:59 Intake Total 1500 400 360 Output Total 700 Balance 1500 -300 360 Weight 74.7 kg 72.6 kg Intake: Oral 1500 400 360 Output: Urine 700 Other: # Voids 1 - Exam GENERAL: The patient is alert and oriented x3, not in any acute distress. Well developed, well nourished. HEENT: Pupils are round and equally reacting to light. EOMI. No scleral icterus. No conjunctival pallor. Normocephalic, atraumatic. No pharyngeal erythema. No thyromegaly. CARDIOVASCULAR: S1 and S2 present. No murmurs, rubs, or gallops. PULMONARY: Chest is clear to auscultation, no wheezing or crackles. ABDOMEN: Soft, nontender, nondistended, normoactive bowel sounds. No palpable organomegaly. MUSCULOSKELETAL: No joint swelling or deformity. EXTREMITIES: No cyanosis, clubbing, or pedal edema. NEUROLOGICAL: Gross neurological examination did not reveal any focal deficits. SKIN: No rashes. - Labs CBC & Chem 7: 07/08/18 06:47 07/09/18 06:07 Labs: Abnormal Lab Results - Last 24 Hours (Table) 07/09/18 07/09/18 Range/Units 06:07 11:48 Chloride 97 L (98-107) mmol/L Carbon Dioxide 34 H (22-30) mmol/L BUN 24 H (9-20) mg/dL POC Glucose (mg/dL) 130 H (75-99) mg/dL Assessment and Plan Assessment: chest pain , rule out cardiac causes recurrent pleural effusion severe ischemic cardiomyopathy with EF of 20-25% chronic a fib hypertension COPD, NOt in acute exacerbation H/O CVA/TIA H/O GERD Diabetes Mellitus h/o pulmonary hypertension h/o laryngeal ca , with hoarseness of voice, s/p radiotherapy Plan: this is a pleasant 63 yo M who presents with chest pain an dyspnea , called cardiology consut, he is already on lovenox, call pulmonary consult for evaluation of his pulmonary function and pleural fluid. pain management Labs and medication were reviewed.. Continue same treatment. Continue with symptomatic treatment. Resume home medication. Monitor lytes and vitals. DVT and GI prophylaxis. Further recommendations of the clinical course of the patient DVT prophylaxis:lovenox GI Prophylaxis: Ppi Prognosis is guarded
[2018-07-09 20:51] LABS: Glucose,Whole Blood 90 mg/dL (75-99)
[2018-07-10] MEDS: FUROSEMIDE 10 MG/ML 4 ML VIAL IV SCH ×4 (00:34→23:09)
[2018-07-10] MEDS: HYDROcodone/APAP 5-325MG 1 EACH TAB PO PRN ×4 (02:48→21:20)
[2018-07-10 06:15] LABS: Glucose,Whole Blood 116 mg/dL (75-99)
[2018-07-10] MEDS: CYCLOBENZAPRINE 10 MG TAB PO PRN ×2 (06:49→16:24)
[2018-07-10] MEDS: PANTOPRAZOLE 40 MG TABLET PO SCH (06:49)
[2018-07-10 07:09] LABS: Anion Gap 8 mmol/L; Blood Urea Nitrogen 24 mg/dL (9-20); Calcium 9.1 mg/dL (8.4-10.2); Carbon Dioxide 32 mmol/L (22-30); Chloride 96 mmol/L (98-107); Glucose 103 mg/dL (74-99); Magnesium 1.6 mg/dL (1.6-2.3); Potassium 4.2 mmol/L (3.5-5.1); Sodium 136 mmol/L (137-145)
[2018-07-10] MEDS: ENOXAPARIN 80 MG/0.8 ML SYRINGE SQ SCH ×2 (07:47→08:11)
[2018-07-10] MEDS: IPRATROPIUM-ALBUTEROL 3 ML NEB INHALATION SCH ×4 (07:57→21:50)
[2018-07-10] MEDS: SPIRONOLACTONE 25 MG TAB PO SCH ×2 (08:00→20:21)
[2018-07-10] MEDS: ASPIRIN 81 MG PO SCH (08:00)
[2018-07-10] MEDS: ISOSORBIDE MONONITRATE ER 30 MG TAB.ER.24H PO SCH (08:02)
[2018-07-10] MEDS: METOPROLOL TARTRATE 25 MG TAB PO SCH ×2 (08:02→20:21)
--- NOTE | 2018-07-10 09:48 | P.PN ---
Subjective this is a pleasant 62 yo M with pmh of liver disease , severe ischemic cardiomyopathy with EF of 20-25%, a fib, HTN, COPD, CVA/TIA, dm, DVT/PE, GERD, pulmonary hypertension, laryngeal cancer , status post radiotherapy who presents with chest pain of one day duration , mainly in the left upper chest radiating down all the way to the lower abd as per pt going across the lower abd to the left side, started sever 10/10 coming down to 7/10.he was recently discharged from the hospital for ascites and pleural effusion. , he has some dyspena , with cough and clear phlegm 07/08/2018 Patient this morning states that his chest pain is slightly improved down to 7/10 in severity compared to 9/10 yesterday. However he remains dyspneic with some cough and clear phlegm. Distal has an wheezings on both lung figueroa. R on patient has been evaluated by pulmonary team and he underwent thoracocentesis was 700 mL of fluids was taken out. As per cardiology the patient not a candidate for anticoagulation for his atrial fibrillation, and recommended to continue with IV Lasix. Patient was checked and he was taking norco 07/15/2024 milligrams every 4 hours by his PCP which was restarted upon his request. Risks benefits and alternatives are explained for him including but not limited to the risk of respiratory failure and 07/09/2018 Patient still has chest pain of 7/10. His dyspnea and cough are improving. He is less wheezing today. Patient underwent thoracocentesis as above. Previous currently on Lovenox because of his frequent need for procedures like thoracocentesis. And a difficult every 2 weeks as he was told me. Patient does not need any more oxygen and he is on room air at 94% saturation. He is afebrile. Cardiology team and recommended to continue with IV Lasix. 07/10/2018 Patient lying in bed still have little dyspnea as still have some chest pain however he feels better. His status post paracentesis. He remains on parenteral Lasix. Vital signs stable. Creatinine is 0.7. Magnesium 1.6 Discharge plan in 24-48 hours Objective - Vital Signs Vital signs: Vital Signs Temp 97 F L 07/10/18 07:00 Pulse 76 07/10/18 08:10 Resp 18 07/10/18 08:00 BP 108/67 07/10/18 07:00 Pulse Ox 96 07/10/18 07:59 Intake & Output 07/09/18 07/10/18 07/10/18 18:59 06:59 18:59 Intake Total 360 1180 240 Output Total 1100 Balance 360 80 240 Weight 71.4 kg Intake: Oral 360 1180 240 Output: Urine 1100 Other: # Voids 1 - Exam GENERAL: The patient is alert and oriented x3, not in any acute distress. Well developed, well nourished. HEENT: Pupils are round and equally reacting to light. EOMI. No scleral icterus. No conjunctival pallor. Normocephalic, atraumatic. No pharyngeal erythema. No thyromegaly. CARDIOVASCULAR: S1 and S2 present. No murmurs, rubs, or gallops. PULMONARY: Chest is clear to auscultation, no wheezing or crackles. ABDOMEN: Soft, nontender, nondistended, normoactive bowel sounds. No palpable organomegaly. MUSCULOSKELETAL: No joint swelling or deformity. EXTREMITIES: No cyanosis, clubbing, or pedal edema. NEUROLOGICAL: Gross neurological examination did not reveal any focal deficits. SKIN: No rashes. - Labs CBC & Chem 7: 07/08/18 06:47 07/10/18 06:33 Labs: Abnormal Lab Results - Last 24 Hours (Table) 07/09/18 07/10/18 07/10/18 Range/Units 11:48 06:13 06:33 Sodium 136 L (137-145) mmol/L Chloride 96 L (98-107) mmol/L Carbon Dioxide 32 H (22-30) mmol/L BUN 24 H (9-20) mg/dL Glucose 103 H (74-99) mg/dL POC Glucose (mg/dL) 130 H 116 H (75-99) mg/dL Assessment and Plan Assessment: chest pain , rule out cardiac causes recurrent pleural effusion severe ischemic cardiomyopathy with EF of 20-25% chronic a fib hypertension COPD, NOt in acute exacerbation H/O CVA/TIA H/O GERD Diabetes Mellitus h/o pulmonary hypertension h/o laryngeal ca , with hoarseness of voice, s/p radiotherapy Plan: this is a pleasant 63 yo M who presents with chest pain an dyspnea , called cardiology consut, he is already on lovenox, call pulmonary consult for evaluation of his pulmonary function and pleural fluid. pain management Labs and medication were reviewed.. Continue same treatment. Continue with symptomatic treatment. Resume home medication. Monitor lytes and vitals. DVT and GI prophylaxis. Further recommendations of the clinical course of the patient DVT prophylaxis:lovenox GI Prophylaxis: Ppi Prognosis is guarded
[2018-07-10] MEDS ORDERED: MORPHINE SULFATE 2 MG/ML SYRINGE IVP STA (09:51)
--- NOTE | 2018-07-10 12:01 | P.PN ---
Subjective Progress Note Date: 07/10/18 This is a 63-year-old white male with past medical history of chronic systolic/diastolic congestive heart failure with severe refractory ascites requiring frequent paracentesis, cardiomyopathy with ejection fraction of 20- 25%, chronic A. fib, recurrent history of pleural effusions on the right requiring frequent thoracentesis, history of hypertension, diabetes mellitus, laryngeal cancer status post radiation, coronary artery disease with previous stent placement. is under to the hospital on this occasion with symptoms again of progressively worsening shortness of breath. Patient has had recurrent pl eural effusions and again was found to have a pleural effusion on this admission, underwent thoracentesis. Continues at this time to be on IV Lasix. labs morning showed a B1 of 24 and creatinine 0.76. his weight is down 1.2 kg since yesterday. Overall he he feels about the same as yesterday.he continues to have lower extremity edema and some abdominal discomfort and distention. Objective - Vital Signs Vital signs: Vital Signs Temp 97 F L 07/10/18 07:00 Pulse 72 07/10/18 11:24 Resp 18 07/10/18 08:00 BP 108/67 07/10/18 07:00 Pulse Ox 96 07/10/18 07:59 Intake & Output 07/09/18 07/10/18 07/10/18 18:59 06:59 18:59 Intake Total 360 1180 240 Output Total 1100 Balance 360 80 240 Weight 71.4 kg Intake: Oral 360 1180 240 Output: Urine 1100 Other: # Voids 1 - Exam PHYSICAL EXAMINATION: HEENT: [Head is atraumatic, normocephalic. Pupils equal, round. Neck is supple. There is no elevated jugular venous pressure.] HEART EXAMINATION: [Heart sounds regular, S1 and S2 normal. No murmur or gallop heard.] CHEST EXAMINATION:[ Lungs diminished air entry to the right. No chest wall tenderness is noted on palpation or with deep breathing.] ABDOMEN: [ Soft, nontender, slight distention noted. Bowel sounds are heard. No organomegaly noted]. EXTREMITIES:[ 2+ peripheral pulses with evidence of 1+ peripheral edema and no calf tenderness noted]. NEUROLOGIC [patient is awake, alert and oriented x3.] . - Labs CBC & Chem 7: 07/08/18 06:47 07/10/18 06:33 Labs: Abnormal Lab Results - Last 24 Hours (Table) 07/09/18 07/10/18 07/10/18 Range/Units 11:48 06:13 06:33 Sodium 136 L (137-145) mmol/L Chloride 96 L (98-107) mmol/L Carbon Dioxide 32 H (22-30) mmol/L BUN 24 H (9-20) mg/dL Glucose 103 H (74-99) mg/dL POC Glucose (mg/dL) 130 H 116 H (75-99) mg/dL Assessment and Plan Assessment: #1. Dyspnea related to recurrent right-sided pleural effusion, patient has had multiple thoracentesis for recurrent right-sided pleural effusion, with the latest thoracentesis is being on 06/22/2018 would removal of 2.4 L of pleural fluid. \ #2. Acute on chronic congestive heart failure with systolic and diastolic dysfunction, with severe refractory ascites requiring frequent paracentesis, ejection fraction of 20-25% #3. History of lower extremity edema #4. Chronic atrial fibrillation #5. Recurrent ascites, with most recent paracentesis on 06/27/2018 #6. History of laryngeal cancer treated with radiation #7. Hypertention, hyperlipidemia #8. Diabetes mellitus #9. Coronary artery disease with previous history of stent placement Plan: From cardiology's perspective, medications were reviewed and we will continue the same. we will continue to follow patient for further recommendations accordingly. [employer] ARCHIT[employer] note has been reviewed, I agree with a documented findings and plan of care. Patient was seen and examined.
[2018-07-10 12:06] LABS: Glucose,Whole Blood 107 mg/dL (75-99)
--- NOTE | 2018-07-10 12:44 | P.PN ---
Subjective Progress Note Date: 07/10/18 Principal diagnosis: Dyspnea secondary to recurrent pleural effusion This is a 63-year-old white male with past medical history of chronic systolic/diastolic congestive heart failure with severe refractory ascites requiring frequent paracentesis, cardiomyopathy with ejection fraction of 20- 25%, chronic A. fib, recurrent history of pleural effusions on the right requiring frequent thoracentesis, history of hypertension, diabetes mellitus, laryngeal cancer status post radiation, coronary artery disease with previous stent placement. We've seen this patient in consultation on multiple occasions in regards to recurrent right-sided pleural effusion and have had to do a right- sided thoracentesis on multiple occasions. Last time patient had his right- sided thoracentesis was on 06/22/2018 with removal of 2.4 L of pleural fluid. Patient had ultrasound-guided paracentesis on 06/27/2018 with removal of 1.9 L of straw-colored fluid. Previous cytology of the pleural and peritoneal fluid did not show any cytologically malignant cells. Pleural fluid analysis showed transudative fluid. on 07/07/2018 patient presented to the emergency department complaints of worsening shortness of breath, with chest discomfort associated with dyspnea. Denied any fever or chills, no significant cough, chest congestion. He noted some increased swelling in his lower extremities, no nausea, vomiting or diarrhea. He discomfort in his right chest. Chest x-ray showed a pleural effusion and associated atelectasis on the right. EKG showed atrial fibrillation with PVCs, incomplete right bundle branch block and inferior infarct of undetermined age as well as anterior infarct of undetermined age. White blood cell count was 5.4, hemoglobin is 13.0, INR is 1.1, electrolytes were within normal limits, BUN 16 creatinine was 0.59, troponin was 0.018, proBNP was 3650. He is afebrile, he is on 3 L of oxygen his pulse ox is 96%. We asked to see the patient in evaluation for possible thoracentesis for his recurrent right-sided pleural effusion the patient is seen today 07/09/2018 in follow-up on the selective care unit. He is currently sitting up in a chair at the bedside. Awake and alert in no acute distress. He is status post thoracentesis on the right with 700 ML's of fluid removed.maintaining O2 saturations in the 90s on room air. He is afebrile. Hemodynamically stable. Bicarb 34. Creatinine 0.67. Remains on bronchodilators. On 07/02/2018 patient seen in follow-up on selective care unit, patient is awake and alert, he states he is in no acute distress, but still is short of breath with any weight exertion, patient is status post right-sided thoracentesis the day before yesterday, would removal of 700 mL of pleural fluid. In the pleural fluid was not sent for cytology or analysis as it has been checked multiple times in the past with negative cytologies, and pleural fluid analysis consistent with a transudative fluid. Today's exam reveals diminished breath sounds over right lower lobe, and there is a suspicion for reaccumulation of the pleural fluid within the right base. Room air pulse ox is 98%, lung sounds are diminished. Patient is afebrile. Is on IV Lasix at 40 mg every 8 hours, Aldactone 50 mg twice daily. Objective - Vital Signs Vital signs: Vital Signs Temp 97 F L 07/10/18 07:00 Pulse 72 07/10/18 11:35 Resp 18 07/10/18 08:00 BP 108/67 07/10/18 07:00 Pulse Ox 96 07/10/18 07:59 Intake & Output 07/09/18 07/10/18 07/10/18 18:59 06:59 18:59 Intake Total 360 1180 240 Output Total 1100 Balance 360 80 240 Weight 71.4 kg Intake: Oral 360 1180 240 Output: Urine 1100 Other: # Voids 1 - Exam GENERAL EXAM: Alert, pleasant, 63-year-old white male, comfortable in no apparent distress. HEAD: Normocephalic/atraumatic. EYES: Normal reaction of pupils, equal size. Conjunctiva pink, sclera white. NOSE: Clear with pink turbinates. THROAT: No erythema or exudates. NECK: No masses, no JVD, no thyroid enlargement, no adenopathy. CHEST: No chest wall deformity. Symmetrical expansion. LUNGS: Equal air entry with diminished breath sounds on the right CVS: Regular rate and rhythm, normal S1 and S2, no gallops, no murmurs, no rubs ABDOMEN: Soft, nontender. No hepatosplenomegaly, normal bowel sounds, no guarding or rigidity. EXTREMITIES: No clubbing, no edema, no cyanosis, 2+ pulses and upper and lower extremities. MUSCULOSKELETAL: Muscle strength and tone normal. SPINE: No scoliosis or deformity SKIN: No rashes CENTRAL NERVOUS SYSTEM: Alert and oriented -3. No focal deficits, tone is normal in all 4 extremities. PSYCHIATRIC: Alert and oriented -3. Appropriate affect. Intact judgment and insight. - Labs CBC & Chem 7: 07/08/18 06:47 07/10/18 06:33 Labs: Abnormal Lab Results - Last 24 Hours (Table) 07/10/18 07/10/18 07/10/18 Range/Units 06:13 06:33 11:52 Sodium 136 L (137-145) mmol/L Chloride 96 L (98-107) mmol/L Carbon Dioxide 32 H (22-30) mmol/L BUN 24 H (9-20) mg/dL Glucose 103 H (74-99) mg/dL POC Glucose (mg/dL) 116 H 107 H (75-99) mg/dL Assessment and Plan Plan: Assessment #1. Dyspnea related to recurrent right-sided pleural effusion, patient has had multiple thoracentesis for recurrent right-sided pleural effusion, with the latest thoracentesis is being on 06/22/2018 would removal of 2.4 L of pleural fluid. Pleural fluid cytology and peritoneal fluid cytologies have been negative for any malignant cells. #2. Acute on chronic congestive heart failure with systolic and diastolic dysfunction, with severe refractory ascites requiring frequent paracentesis, eje ction fraction of 20-25% #3. History of lower extremity edema #4. Chronic atrial fibrillation #5. Recurrent ascites, with most recent paracentesis on 06/27/2018 #6. History of laryngeal cancer treated with radiation #7. Hypertention, hyperlipidemia #8. Diabetes mellitus #9. Coronary artery disease with previous history of stent placement #10. Overall poor functional performance related to multiple comorbidities Plan: We'll obtain a follow-up chest x-ray in the morning, will consult interventional radiology for ultrasound-guided paracentesis and possibly right ultrasound-guide d thoracentesis. We'll continue with IV diuretics, and breathing treatments. We'll hold the Lovenox. I performed a history & physical examination of the patient and discussed their management with my nurse practitioner, Vika Aceves. I reviewed the nurse practitioner's note and agree with the documented findings and plan of care. Lung sounds are positive for management of sounds over right lower base. The findings and the impression was discussed with the patient. I attest to the documentation by the nurse practitioner. Time with Patient: Less than 30
[2018-07-10 17:22] LABS: Glucose,Whole Blood 127 mg/dL (75-99)
[2018-07-10 20:06] LABS: Glucose,Whole Blood 105 mg/dL (75-99)
[2018-07-11] MEDS: HYDROcodone/APAP 5-325MG 1 EACH TAB PO PRN ×5 (01:52→17:15)
[2018-07-11] MEDS: CYCLOBENZAPRINE 10 MG TAB PO PRN ×2 (01:52→11:09)
[2018-07-11 06:48] LABS: Glucose,Whole Blood 100 mg/dL (75-99)
[2018-07-11] MEDS: IPRATROPIUM-ALBUTEROL 3 ML NEB INHALATION SCH ×4 (06:49→19:21)
[2018-07-11] MEDS: SPIRONOLACTONE 25 MG TAB PO SCH (07:46)
[2018-07-11] MEDS: PANTOPRAZOLE 40 MG TABLET PO SCH (07:46)
[2018-07-11] MEDS: ISOSORBIDE MONONITRATE ER 30 MG TAB.ER.24H PO SCH (07:46)
[2018-07-11] MEDS: ASPIRIN 81 MG PO SCH (07:47)
[2018-07-11] MEDS: METOPROLOL TARTRATE 25 MG TAB PO SCH (07:47)
[2018-07-11] MEDS: FUROSEMIDE 10 MG/ML 4 ML VIAL IV SCH ×2 (07:49→17:12)
--- NOTE | 2018-07-11 08:48 | XR ---
EXAMINATION TYPE: XR chest 2V DATE OF EXAM: 07/11/2018 COMPARISON: 07/08/2018 TECHNIQUE: PA and lateral views submitted. HISTORY: Abnormal x-ray FINDINGS: There is a right-sided area of large consolidation and pleural effusion. Calcified lymph nodes in the mediastinum are seen and there is postsurgical change overlying the cervical spine. Arthropathy of t he shoulder. No pneumothorax. Left lung clear. Heart is enlarged. IMPRESSION: 1. Right-sided consolidation and pleural effusion stable.
--- NOTE | 2018-07-11 09:36 | US ---
EXAMINATION TYPE: US abdomen limited DATE OF EXAM: 07/11/2018 COMPARISON: NONE CLINICAL HISTORY: assess fluid - consult in for paracentesis. Ascites check Abdominal ascites with largest pocket within RLQ. IMPRESSION: Ascites
--- NOTE | 2018-07-11 09:37 | US ---
EXAMINATION TYPE: US chest DATE OF EXAM: 07/11/2018 COMPARISON: US 2019 CLINICAL HISTORY: assess fluid - consult for rt thora. Right pleural effusion TECHNIQUE: Targeted ultrasound of the posterior lower right hemithorax EXAM MEASUREMENTS: Right Pleural Effusion pocket size: 9.7 cm Right skin surface to fluid distance: 2.3 cm Right side MARKED for possible thoracentesis outside the dept. Pulmonologists are able to review the images in the patient?s EMR. IMPRESSIONS: Right pleural effusion as measured above
[2018-07-11 11:32] LABS: Glucose,Whole Blood 89 mg/dL (75-99)
--- NOTE | 2018-07-11 12:18 | US ---
Therapeutic paracentesis. DATE OF EXAM: 07/11/2018 CLINICAL HISTORY: Ascites The procedure was discussed with the patient. The risks, complications, benefits, and alternatives we re discussed and any questions were answered. Informed consent was obtained. The patient was placed s upine on the ultrasound table and prepped and draped in the usual sterile fashion. All elements of maximal barrier technique were utilized. Under ultrasound guidance, access into the right lower quadrant was obtained, via the paracentesis catheter system and direct ultrasound guidanc e. Approximately 1.7 liters of straw-colored fluid was removed. The patient was stable throughout the pr ocedure and remained stable upon discharge from Department of Radiology. IMPRESSION: Successful therapeutic paracentesis under ultrasound guidance.
--- NOTE | 2018-07-11 12:57 | P.PN ---
Subjective Patient resting in bed complains of chronic pain. Patient had paracentesis for abdominal ascites 2 L drawn. Anticipate thoracentesis tomorrow Objective - Vital Signs Vital signs: Vital Signs Temp 97.9 F 07/11/18 06:47 Pulse 72 07/11/18 11:42 Resp 18 07/11/18 10:54 BP 97/67 07/11/18 10:54 Pulse Ox 94 L 07/11/18 10:54 Intake & Output 07/10/18 07/11/18 07/11/18 18:59 06:59 18:59 Intake Total 476 Balance 476 Weight 67 kg Intake: Oral 476 Other: # Voids 2 - Constitutional General appearance: Present: mild distress - EENT Eyes: Present: PERRLA Ears: bilateral: normal - Neck Neck: Present: normal ROM - Respiratory Respiratory: bilateral: diminished - Cardiovascular Rhythm: irregularly irregular Abnormal Heart Sounds: Present: systolic murmur - Gastrointestinal General gastrointestinal: Present: soft, ventral hernia - Integumentary Integumentary: Present: normal - Neurologic Neurologic: Present: CNII-XII intact - Musculoskeletal Musculoskeletal: Present: generalized weakness - Psychiatric Psychiatric: Present: A&O x's 3, appropriate affect, intact judgment & insight - Labs CBC & Chem 7: 07/08/18 06:47 07/10/18 06:33 Labs: Abnormal Lab Results - Last 24 Hours (Table) 07/10/18 07/10/18 07/11/18 Range/Units 17:11 20:00 06:46 POC Glucose (mg/dL) 127 H 105 H 100 H (75-99) mg/dL - Imaging and Cardiology Chest x-ray: report reviewed US - abdomen: report reviewed Assessment and Plan Plan: Assessment Chest pain atypical cardiology signed off Recurrent pleural effusion Severe ischemic cardiomyopathy ejection fraction 20-25% Chronic persistent atrial fibrillation Hypertension COPD stable History of CVA/TIA History of GERD diabetes type 2 Pulmonary hypertension History of laryngeal cancer Chronic abdominal ascites with frequent paracentesis Plan Thoracentesis tomorrow Continue consultation with pulmonology
--- NOTE | 2018-07-11 14:43 | P.PN ---
Subjective This is a pleasant 63-year-old male past medical history significant for systolic/diastolic congestive heart failure with severe refractory ascites requiring frequent paracentesis, ischemic cardiomyopathy with ejection fraction 20-25%, chronic persistent atrial fibrillation currently not on jail anticoagulation secondary to frequent paracentesis, recurrent pleural effusions, hypertension, diabetes mellitus, coronary artery disease status post stent placement laryngeal cancer status post radiation. He underwent a paracentesis t his morning was 1.8 L removed. He is scheduled to undergo a thoracentesis tomorrow morning. He is seen and examined resting comfortably lying flat in bed in no acute distress. His breathing is stable, he denies chest pain, dizziness or palpitations. He is currently maintained on IV Lasix. Blood pressure 97/67 heart rate 70 afebrile maintaining oxygen saturation on room air. GENERAL: Well-appearing, well-nourished and in no acute distress. NECK: Supple without JVD or thyromegaly. LUNGS: Bibasilar rales, no wheezes or rhonchi Respiration equal and unlabored. Diminished bilaterally. HEART: Irregular rate and rhythm with systolic ejection murmur at the left sternal border, no rubs or gallops. S1 and S2 heard. EXTREMITIES: Normal range of motion, trace nonpitting bilateral edema. No club darnell or cyanosis. Peripheral pulses intact. ASSESSMENT Acute on chronic congestive heart failure due to systolic and diastolic dysfunction with severe refractory ascites and chronic pleural effusion requiring frequent paracentesis and thoracentesis Chronic persistent atrial fibrillation currently not on jail anticoagulation Hypertension Dyslipidemia Diabetes mellitus Ischemic cardiomyopathy, ejection fraction 20-25% History of coronary artery disease status post stent placement COPD Pulmonary hypertension PLAN Continue current medical regimen. Consider initiation of Eliquis or Xarelto which can be stopped 24-48 hours prior to required para-or thoracentesis. We will ask case management to check for coverage. Further recommendations to follow based upon clinical course. Nurse Practitioner note has been reviewed, I agree with a documented findings and plan of care. Patient was seen and examined. Objective - Vital Signs Vital signs: Vital Signs Temp 97.9 F 07/11/18 06:47 Pulse 72 07/11/18 11:42 Resp 18 07/11/18 10:54 BP 97/67 07/11/18 10:54 Pulse Ox 94 L 07/11/18 10:54 Intake & Output 07/10/18 07/11/1807/11/19 18:59 06:59 18:59 Intake Total 476 Balance 476 Weight 67 kg Intake: Oral 476 Other: # Voids 2 - Labs CBC & Chem 7: 07/08/18 06:47 07/10/18 06:33 Labs: Abnormal Lab Results - Last 24 Hours (Table) 07/10/18 07/10/18 07/11/18 Range/Units 17:11 20:00 06:46 POC Glucose (mg/dL) 127 H 105 H 100 H (75-99) mg/dL
--- NOTE | 2018-07-11 16:29 | P.PN ---
Subjective Progress Note Date: 07/11/18 Principal diagnosis: Dyspnea secondary to recurrent pleural effusion This is a 63-year-old white male with past medical history of chronic systolic/diastolic congestive heart failure with severe refractory ascites requiring frequent paracentesis, cardiomyopathy with ejection fraction of 20- 25%, chronic A. fib, recurrent history of pleural effusions on the right requiring frequent thoracentesis, history of hypertension, diabetes mellitus, laryngeal cancer status post radiation, coronary artery disease with previous stent placement. We've seen this patient in consultation on multiple occasions in regards to recurrent right-sided pleural effusion and have had to do a right- sided thoracentesis on multiple occasions. Last time patient had his right- sided thoracentesis was on 06/22/2018 with removal of 2.4 L of pleural fluid. Patient had ultrasound-guided paracentesis on 06/27/2018 with removal of 1.9 L of straw-colored fluid. Previous cytology of the pleural and peritoneal fluid did not show any cytologically malignant cells. Pleural fluid analysis showed transudative fluid. on 07/07/2018 patient presented to the emergency department complaints of worsening shortness of breath, with chest discomfort associated with dyspnea. Denied any fever or chills, no significant cough, chest congestion. He noted some increased swelling in his lower extremities, no nausea, vomiting or diarrhea. He discomfort in his right chest. Chest x-ray showed a pleural effusion and associated atelectasis on the right. EKG showed atrial fibrillation with PVCs, incomplete right bundle branch block and inferior infarct of undetermined age as well as anterior infarct of undetermined age. White blood cell count was 5.4, hemoglobin is 13.0, INR is 1.1, electrolytes were within normal limits, BUN 16 creatinine was 0.59, troponin was 0.018, proBNP was 3650. He is afebrile, he is on 3 L of oxygen his pulse ox is 96%. We asked to see the patient in evaluation for possible thoracentesis for his recurrent right-sided pleural effusion the patient is seen today 07/09/2018 in follow-up on the selective care unit. He is currently sitting up in a chair at the bedside. Awake and alert in no acute distress. He is status post thoracentesis on the right with 700 ML's of fluid removed.maintaining O2 saturations in the 90s on room air. He is afebrile. Hemodynamically stable. Bicarb 34. Creatinine 0.67. Remains on bronchodilators. On 07/02/2018 patient seen in follow-up on selective care unit, patient is awake and alert, he states he is in no acute distress, but still is short of breath with any weight exertion, patient is status post right-sided thoracentesis the day before yesterday, would removal of 700 mL of pleural fluid. In the pleural fluid was not sent for cytology or analysis as it has been checked multiple times in the past with negative cytologies, and pleural fluid analysis consistent with a transudative fluid. Today's exam reveals diminished breath sounds over right lower lobe, and there is a suspicion for reaccumulation of the pleural fluid within the right base. Room air pulse ox is 98%, lung sounds are diminished. Patient is afebrile. Is on IV Lasix at 40 mg every 8 hours, Aldactone 50 mg twice daily. On 07/11/2018 patient seen in follow-up on the surgical floor. Today she went for ultrasound-guided paracentesis, and 1.7 L of ascitic fluid was removed. Ultrasound of the chest revealed 9.7 cm fluid pocket on the right, but patient could not have both procedures on the same day. He is back in the room, he is eating his lunch, he is in no acute distress, lung sounds reveal diminished breath sounds at the right base, with some minimal scattered wheezing. No complaints of shortness of breath, room air pulse ox 94%, hemodynamically patient is stable, no fever or chills. Objective - Vital Signs Vital signs: Vital Signs Temp 97.6 F 07/11/18 14:47 Pulse 72 07/11/18 15:03 Resp 18 07/11/18 10:54 BP 101/64 07/11/18 14:47 Pulse Ox 98 07/11/18 14:47 Intake & Output 07/10/18 07/11/18 07/11/18 18:59 06:59 18:59 Intake Total 476 Balance 476 Weight 67 kg Intake: Oral 476 Other: # Voids 2 - Exam GENERAL EXAM: Alert, pleasant, 63-year-old white male, comfortable in no apparent distress. HEAD: Normocephalic/atraumatic. EYES: Normal reaction of pupils, equal size. Conjunctiva pink, sclera white. NOSE: Clear with pink turbinates. THROAT: No erythema or exudates. NECK: No masses, no JVD, no thyroid enlargement, no adenopathy. CHEST: No chest wall deformity. Symmetrical expansion. LUNGS: Equal air entry with diminished breath sounds on the right CVS: Regular rate and rhythm, normal S1 and S2, no gallops, no murmurs, no rubs ABDOMEN: Soft, nontender. No hepatosplenomegaly, normal bowel sounds, no guarding or rigidity. EXTREMITIES: No clubbing, no edema, no cyanosis, 2+ pulses and upper and lower extremities. MUSCULOSKELETAL: Muscle strength and tone normal. SPINE: No scoliosis or deformity SKIN: No rashes CENTRAL NERVOUS SYSTEM: Alert and oriented -3. No focal deficits, tone is normal in all 4 extremities. PSYCHIATRIC: Alert and oriented -3. Appropriate affect. Intact judgment and insight. - Labs CBC & Chem 7: 07/08/18 06:47 07/10/18 06:33 Labs: Abnormal Lab Results - Last 24 Hours (Table) 07/10/18 07/10/18 07/11/18 Range/Units 17:11 20:00 06:46 POC Glucose (mg/dL) 127 H 105 H 100 H (75-99) mg/dL Assessment and Plan Plan: Assessment #1. Dyspnea related to recurrent right-sided pleural effusion, patient has had multiple thoracentesis for recurrent right-sided pleural effusion, with the latest thoracentesis is being on 06/22/2018 would removal of 2.4 L of pleural fluid. Pleural fluid cytology and peritoneal fluid cytologies have been negative for any malignant cells. #2. Acute on chronic congestive heart failure with systolic and diastolic dysfunction, with severe refractory ascites requiring frequent paracentesis, ejection fraction of 20-25% #3. History of lower extremity edema #4. Chronic atrial fibrillation #5. Recurrent ascites, with most recent paracentesis on 06/27/2018 #6. History of laryngeal cancer treated with radiation #7. Hypertention, hyperlipidemia #8. Diabetes mellitus #9. Coronary artery disease with previous history of stent placement #10. Overall poor functional performance related to multiple comorbidities Plan: Continue holding the Lovenox for possibility of right-sided thoracentesis by of interventional radiology. Vital signs are stable, will continue IV Lasix I performed a history & physical examination of the patient and discussed their management with my nurse practitioner, Vika Aceves. I reviewed the nurse practitioner's note and agree with the documented findings and plan of care. Lung sounds are positive for management of sounds over right lower base. The findings and the impression was discussed with the patient. I attest to the documentation by the nurse practitioner. Time with Patient: Less than 30
[2018-07-11 16:59] LABS: Glucose,Whole Blood 95 mg/dL (75-99)
[2018-07-11] MEDS ORDERED: METOPROLOL TARTRATE 25 MG TAB PO ONE (21:00)
[2018-07-11 21:55] LABS: Glucose,Whole Blood 122 mg/dL (75-99)
[2018-07-12] MEDS: HYDROcodone/APAP 5-325MG 1 EACH TAB PO PRN ×2 (01:06→11:49)
[2018-07-12 06:56] LABS: Mean Platelet Volume 8.4; Platelet Count 244 k/uL (150-450)
[2018-07-12 07:00] LABS: INR 1.2 (<1.2); Prothrombin Time 12.6 sec (9.0-12.0)
[2018-07-12 07:10] LABS: Anion Gap 6 mmol/L; Blood Urea Nitrogen 29 mg/dL (9-20); Carbon Dioxide 33 mmol/L (22-30); Chloride 97 mmol/L (98-107); Glucose 111 mg/dL (74-99); Magnesium 1.7 mg/dL (1.6-2.3); Potassium 4.4 mmol/L (3.5-5.1); Sodium 136 mmol/L (137-145)
[2018-07-12] MEDS: IPRATROPIUM-ALBUTEROL 3 ML NEB INHALATION SCH ×2 (08:39→12:30)
[2018-07-12 09:47] VITALS: TEMP 97.9
[2018-07-12] MEDS ORDERED: METOPROLOL TARTRATE 25 MG TAB PO SCH (11:00)
[2018-07-12] MEDS ORDERED: SPIRONOLACTONE 25 MG TAB PO SCH (11:00)
--- NOTE | 2018-07-12 11:01 | P.PN ---
Subjective This is a pleasant 63-year-old male past medical history significant for systolic/diastolic congestive heart failure with severe refractory ascites requiring frequent paracentesis, ischemic cardiomyopathy with ejection fraction 20-25%, chronic persistent atrial fibrillation currently not on fci anticoagulation secondary to frequent paracentesis, recurrent pleural effusions, hypertension, diabetes mellitus, coronary artery disease status post stent placement laryngeal cancer status post radiation. He underwent a paracentesis t his morning was 1.8 L removed. He is scheduled to undergo a thoracentesis tomorrow morning. He is seen and examined resting comfortably lying flat in bed in no acute distress. His breathing is stable, he denies chest pain, dizziness or palpitations. He is currently maintained on IV Lasix. Blood pressure 97/67 heart rate 70 afebrile maintaining oxygen saturation on room air. 07/12/2018 Pt seen and examined laying flat resting comfortably in bed in no acute distress. He is currently NPO awaiting thoracentesis. He states overall he feels at his baseline with ongoing shortness of breath but no change in the intensity. He denies chest discomfort, dizziness or palpitations. Laboratory data reviewed, platelets 244, INR 1.2, sodium 136, potassium 4.4, creatinine 0.8, magnesium 1.7. Blood pressure 90/49 heart rate 76 afebrile maintaining oxygen saturation on room air. Lasix, lopressor and Aldactone have been discontinued last night due to hypotension. GENERAL: Well-appearing, well-nourished and in no acute distress. NECK: Supple without JVD or thyromegaly. LUNGS: Bibasilar rales, no wheezes or rhonchi Respiration equal and unlabored. Diminished bilaterally. HEART: Irregular rate and rhythm with systolic ejection murmur at the left sternal border, no rubs or gallops. S1 and S2 heard. EXTREMITIES: Normal range of motion, trace nonpitting bilateral edema. No clubbing or cyanosis. Peripheral pulses intact. 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 We will continue to follow and make recommendations accordingly. Nurse Practitioner note has been reviewed, I agree with a documented findings and plan of care. Patient was seen and examined. Objective - Vital Signs Vital signs: Vital Signs Temp 97.9 F 07/12/18 09:46 Pulse 76 07/12/18 10:49 Resp 16 07/12/18 10:49 BP 90/49 07/12/18 10:49 Pulse Ox 93 L 07/12/18 10:49 Intake & Output 07/11/18 07/12/18 07/12/18 18:59 06:59 18:59 Intake Total 200 240 Balance 200 240 Weight 67 kg 66.6 kg Intake: Oral 200 240 Other: # Voids 1 # Bowel Movements 0 - Labs CBC & Chem 7: 07/12/18 06:46 07/12/18 06:46 Labs: Abnormal Lab Results - Last 24 Hours (Table) 07/11/18 07/12/18 07/12/18 Range/Units 21:18 06:46 06:46 PT 12.6 H (9.0-12.0) sec INR 1.2 H (<1.2) Sodium 136 L (137-145) mmol/L Chloride 97 L (98-107) mmol/L Carbon Dioxide 33 H (22-30) mmol/L BUN 29 H (9-20) mg/dL Glucose 111 H (74-99) mg/dL POC Glucose (mg/dL) 122 H (75-99) mg/dL
--- NOTE | 2018-07-12 11:15 | US ---
Ultrasound-guided therapeutic thoracentesis DATE OF EXAM: 07/12/2018 CLINICAL HISTORY: Right pleural effusion The procedure was discussed with the patient. The risks, complications, benefits, and alternatives we re discussed and any questions were answered. Informed consent was obtained. The patient was placed supine on the ultrasound table and prepped and draped in the usual sterile fas hion. All elements of maximal barrier and sterile technique were utilized. Under ultrasound guidance, access into the pleural space was obtained, via the thoracentesis catheter system and direct ultrasound guidance. Ap proximately 0.55 liters of straw-colored fluid was removed. The patient was stable throughout the procedure and remained stable upon discharge from Department of Radiology. IMPRESSION: 1. Successful therapeutic thoracentesis under ultrasound guidance.
--- NOTE | 2018-07-12 11:22 | XR ---
EXAMINATION TYPE: XR chest 1V portable DATE OF EXAM: 07/12/2018 COMPARISON: 07/11/2018 HISTORY: Post right thoracentesis TECHNIQUE: Single frontal view of the chest is obtained. FINDINGS: There is interval reduction in amount pleural fluid and consolidation involving the right lung. There does appear to be a fluid level seen along the medial margin of the lung which may repres ent fluid in the minor fissure. Lateral view is recommended to exclude other etiologies. No definite pneumothorax seen. Small pneumothorax not excluded. Post surgical change overlying cervical spine is arthropathy of the shoulders. Left lung remains clear and the heart size is mildly prominent but stab le. IMPRESSION: 1. Interval reduction in pleural fluid and consolidation the right post thoracentesis. No sizable pne umothorax seen although there does appear to be a fluid level in the medial margin the right lung for which a lateral view is recommended.
[2018-07-12 11:30] VITALS: BP 90/52; RESP 16
[2018-07-12] MEDS: ISOSORBIDE MONONITRATE ER 30 MG TAB.ER.24H PO SCH (11:49)
[2018-07-12] MEDS: PANTOPRAZOLE 40 MG TABLET PO SCH (11:49)
[2018-07-12] MEDS: ASPIRIN 81 MG PO SCH (11:49)
--- NOTE | 2018-07-12 12:33 | P.PN ---
Subjective Patient is post or centesis 1/2 L from right lung. Needing follow-up chest x- ray. Continues to complain of chronic pain Objective - Vital Signs Vital signs: Vital Signs Temp 97.9 F 07/12/18 09:46 Pulse 76 07/12/18 11:05 Resp 16 07/12/18 11:05 BP 90/52 07/12/18 11:05 Pulse Ox 95 07/12/18 11:05 Intake & Output 07/11/18 07/12/18 07/12/18 18:59 06:59 18:59 Intake Total 200 240 Balance 200 240 Weight 67 kg 66.6 kg Intake: Oral 200 240 Other: # Voids 1 # Bowel Movements 0 - Constitutional General appearance: Present: mild distress - EENT Eyes: Present: PERRLA Ears: bilateral: normal - Neck Neck: Present: normal ROM - Respiratory Respiratory: bilateral: diminished - Cardiovascular Rhythm: irregularly irregular Abnormal Heart Sounds: Present: systolic murmur - Gastrointestinal General gastrointestinal: Present: soft, ventral hernia - Integumentary Integumentary: Present: normal - Neurologic Neurologic: Present: CNII-XII intact - Musculoskeletal Musculoskeletal: Present: generalized weakness - Psychiatric Psychiatric: Present: A&O x's 3, appropriate affect, intact judgment & insight - Labs CBC & Chem 7: 07/12/18 06:46 07/12/18 06:46 Labs: Abnormal Lab Results - Last 24 Hours (Table) 07/11/18 07/12/18 07/12/18 Range/Units 21:18 06:46 06:46 PT 12.6 H (9.0-12.0) sec INR 1.2 H (<1.2) Sodium 136 L (137-145) mmol/L Chloride 97 L (98-107) mmol/L Carbon Dioxide 33 H (22-30) mmol/L BUN 29 H (9-20) mg/dL Glucose 111 H (74-99) mg/dL POC Glucose (mg/dL) 122 H (75-99) mg/dL - Imaging and Cardiology Chest x-ray: report reviewed, image reviewed Assessment and Plan Plan: Assessment Chest pain atypical cardiac ruled out Recurrent pleural effusion Severe ischemic cardiomyopathy ejection fraction 2025% Post thoracentesis Chronic persistent atrial fibrillation hypertension Diabetes type 2 GERD History of CVA/TIA COPD stable History of pulmonary hypertension History of laryngeal cancer Chronic abdominal ascites post paracentesis 2 L Plan Follow-up chest x-ray from thoracentesis Hopeful discharge home when cleared by pulmonology
[2018-07-12 12:45] VITALS: PULSE 72
[2018-07-12] MEDS ORDERED: MORPHINE SULFATE 2 MG/ML SYRINGE IVP STA (13:10)
--- NOTE | 2018-07-12 13:25 | P.PN ---
Subjective Progress Note Date: 07/12/18 Principal diagnosis: Dyspnea secondary to recurrent pleural effusion. This is a 63-year-old white male with past medical history of chronic systolic/diastolic congestive heart failure with severe refractory ascites requiring frequent paracentesis, cardiomyopathy with ejection fraction of 20- 25%, chronic A. fib, recurrent history of pleural effusions on the right requiring frequent thoracentesis, history of hypertension, diabetes mellitus, laryngeal cancer status post radiation, coronary artery disease with previous stent placement. We've seen this patient in consultation on multiple occasions in regards to recurrent right-sided pleural effusion and have had to do a right- sided thoracentesis on multiple occasions. Last time patient had his right- sided thoracentesis was on 06/22/2018 with removal of 2.4 L of pleural fluid. Patient had ultrasound-guided paracentesis on 06/27/2018 with removal of 1.9 L of straw-colored fluid. Previous cytology of the pleural and peritoneal fluid did not show any cytologically malignant cells. Pleural fluid analysis showed transudative fluid. on 07/07/2018 patient presented to the emergency department complaints of worsening shortness of breath, with chest discomfort associated with dyspnea. Denied any fever or chills, no significant cough, chest congestion. He noted some increased swelling in his lower extremities, no nausea, vomiting or diarrhea. He discomfort in his right chest. Chest x-ray showed a pleural effu bhumi and associated atelectasis on the right. EKG showed atrial fibrillation with PVCs, incomplete right bundle branch block and inferior infarct of undetermined age as well as anterior infarct of undetermined age. White blood cell count was 5.4, hemoglobin is 13.0, INR is 1.1, electrolytes were within normal limits, BUN 16 creatinine was 0.59, troponin was 0.018, proBNP was 3650. He is afebrile, he is on 3 L of oxygen his pulse ox is 96%. We asked to see the patient in evaluation for possible thoracentesis for his recurrent right-sided pleural effusion the patient is seen today 07/09/2018 in follow-up on the selective care unit. He is currently sitting up in a chair at the bedside. Awake and alert in no acute distress. He is status post thoracentesis on the right with 700 ML's of fluid removed.maintaining O2 saturations in the 90s on room air. He is afebrile. Hemodynamically stable. Bicarb 34. Creatinine 0.67. Remains on bronchodilators. On 07/02/2018 patient seen in follow-up on selective care unit, patient is awake and alert, he states he is in no acute distress, but still is short of breath with any weight exertion, patient is status post right-sided thoracentesis the day before yesterday, would removal of 700 mL of pleural fluid. In the pleural fluid was not sent for cytology or analysis as it has been checked multiple times in the past with negative cytologies, and pleural fluid analysis consistent with a transudative fluid. Today's exam reveals diminished breath sounds over right lower lobe, and there is a suspicion for reaccumulation of the pleural fluid within the right base. Room air pulse ox is 98%, lung sounds are diminished. Patient is afebrile. Is on IV Lasix at 40 mg every 8 hours, Aldactone 50 mg twice daily. On 07/11/2018 patient seen in follow-up on the surgical floor. Today she went for ultrasound-guided paracentesis, and 1.7 L of ascitic fluid was removed. Ultrasound of the chest revealed 9.7 cm fluid pocket on the right, but patient could not have both procedures on the same day. He is back in the room, he is eating his lunch, he is in no acute distress, lung sounds reveal diminished breath sounds at the right base, with some minimal scattered wheezing. No complaints of shortness of breath, room air pulse ox 94%, hemodynamically patient is stable, no fever or chills. The patient is seen today 07/12/2017 in follow-up on the regular medical floor. He is awake and alert in no acute distress. Up ambulating in his room. He did undergo a second thoracentesis yesterday with 1.7 L of fluid removed. Today's chest x-ray shows interval reduction of the pleural fluid with consolidation in the right post thoracentesis. No pneumothorax. He is maintaining O2 saturations in the 90s on room air. Remains on bronchodilators. INR 1.2. Sodium 136. Creatinine 0.80. Objective - Vital Signs Vital signs: Vital Signs Temp 97.9 F 07/12/18 09:46 Pulse 72 07/12/18 12:44 Resp 16 07/12/18 11:05 BP 90/52 07/12/18 11:05 Pulse Ox 95 07/12/18 11:05 Intake & Output 07/11/18 07/12/18 07/12/18 18:59 06:59 18:59 Intake Total 200 240 Balance 200 240 Weight 67 kg 66.6 kg Intake: Oral 200 240 Other: # Voids 1 # Bowel Movements 0 - Exam GENERAL EXAM: Alert, pleasant, 63-year-old white male, comfortable in no apparent distress. On room air. HEAD: Normocephalic/atraumatic. EYES: Normal reaction of pupils, equal size. Conjunctiva pink, sclera white. NOSE: Clear with pink turbinates. THROAT: No erythema or exudates. NECK: No masses, no JVD, no thyroid enlargement, no adenopathy. CHEST: No chest wall deformity. Symmetrical expansion. LUNGS: Equal air entry with diminished breath sounds on the right CVS: Regular rate and rhythm, normal S1 and S2, no gallops, no murmurs, no rubs ABDOMEN: Soft, nontender. No hepatosplenomegaly, normal bowel sounds, no g uarding or rigidity. EXTREMITIES: No clubbing, no edema, no cyanosis, 2+ pulses and upper and lower extremities. MUSCULOSKELETAL: Muscle strength and tone normal. SPINE: No scoliosis or deformity SKIN: No rashes CENTRAL NERVOUS SYSTEM: No focal deficits, tone is normal in all 4 extremities. PSYCHIATRIC: Alert and oriented -3. Appropriate affect. Intact judgment and insight. - Labs CBC & Chem 7: 07/12/18 06:46 07/12/18 06:46 Labs: Abnormal Lab Results - Last 24 Hours (Table) 07/11/18 07/12/18 07/12/18 Range/Units 21:18 06:46 06:46 PT 12.6 H (9.0-12.0) sec INR 1.2 H (<1.2) Sodium 136 L (137-145) mmol/L Chloride 97 L (98-107) mmol/L Carbon Dioxide 33 H (22-30) mmol/L BUN 29 H (9-20) mg/dL Glucose 111 H (74-99) mg/dL POC Glucose (mg/dL) 122 H (75-99) mg/dL Assessment and Plan Assessment: Assessment #1. Dyspnea related to recurrent right-sided pleural effusion, patient has had multiple thoracentesis for recurrent right-sided pleural effusion, status post right-sided thoracentesis on 07/09/2018 was 700 ML's of fluid returned. Another thoracentesis on 07/11/2018 with 550 mL removed. #2. Acute on chronic congestive heart failure with systolic and diastolic dysfunction, with severe refractory ascites requiring frequent paracentesis, ejection fraction of 20-25% #3. History of lower extremity edema #4. Chronic atrial fibrillation #5. Recurrent ascites, with most recent paracentesis on 06/27/2018 #6. History of laryngeal cancer treated with radiation #7. Hypertention, hyperlipidemia #8. Diabetes mellitus #9. Coronary artery disease with previous history of stent placement #10. Overall poor functional performance related to multiple comorbidities Plan: The patient was seen and evaluated by Dr. Mc. He is currently stable from the pulmonary standpoint and could be discharged home on his home pulmonary medications. He would probably benefit from routine scheduling of thoracentesis along with his usual scheduled paracentesis per interventional radiology. I, the cosigning physician, performed a history & physical examination of the patient. Lungs sounds diminished in the right lung base. Maintaining good O2 saturations in the 90s on room air. I discussed the assessment and plan of care with my nurse practitioner, Lorri Hoffmann. I attest to the above note as dictated by her.
--- NOTE | 2018-07-12 13:34 | XR ---
EXAMINATION TYPE: XR chest 2V DATE OF EXAM: 07/12/2018 COMPARISON: 07/12/2018 TECHNIQUE: PA and lateral views submitted. HISTORY: Post right thoracentesis FINDINGS: Stable right-sided consolidation and small effusion. No pneumothorax. Postsurgical change overlying t he cervical spine. Arthropathy of the shoulders. Underlying COPD suspected. Heart mildly enlarged but stable. Degenerative change of the spine. IMPRESSION: 1. No pneumothorax. 2. Stable small right effusion and right lower lobe consolidation.
--- NOTE | 2018-07-12 14:35 | P.DS ---
Providers Date of admission: 07/07/18 13:29 Expected date of discharge: 07/12/18 Attending physician: Andrews Escobar Consults: 07/07/18 13:28 Consult Physician Routine Consulting Provider: Cristian Gardner Consult Reason/Comments: chf, pleural effusion Do you want consulting provider notified?: Yes 07/07/18 16:25 Consult Physician Urgent Consulting Provider: Kwaku Thomason Consult Reason/Comments: pleural effusion Do you want consulting provider notified?: Yes Primary care physician: Andrews Escobar Hospital Course: 63-year-old male presented emergency room with complaints of shortness of breath. And chest pain. Chest pain evaluated not cardiac. Noted to have recurrent pleural effusion patient had thoracentesis with have leader from the right side. Patient had paracentesis with 2 L drawn. Patient cleared for discharge per pulmonology. Chest x-ray postprocedure clear of pneumothorax Assessment the chest pain not cardiac recurrent pleural effusion severe ischemic my cardiomyopathy ejection fraction 20 to 25% chronic persistent atrial fibrillation hypertension COPD stable history of CVA/TIA history GERD diabetes type II history of pulmonary hypertension history of laryngeal cancer chronic abdominal ascites with frequent paracentesis Plan follow up with family physician Dr. Andrews Escobar and pulmonology Plan - Discharge Summary Discharge Rx Participant: No New Discharge Prescriptions: New Metoprolol Tartrate [Lopressor] 25 mg PO BID #60 tab Continue Ipratropium-Albuterol Nebulize [Duoneb 0.5 mg-3 mg/3 ml Soln] 3 ml INHALATION RT-QID #120 ampul.neb Pantoprazole [Protonix] 40 mg PO AC-BRKFST #30 tablet. Albuterol Inhaler [Ventolin Hfa Inhaler] 2 puff INHALATION RT-Q4H PRN #1 puff PRN Reason: Shortness Of Breath Cyclobenzaprine [Flexeril] 10 mg PO TID PRN #90 tab PRN Reason: Pain Isosorbide Mononitrate ER [Imdur] 30 mg PO DAILY #30 tab.er.24h Nitroglycerin Sl Tabs [Nitrostat] 0.4 mg SUBLINGUAL Q5M PRN #100 tab PRN Reason: Chest Pain metFORMIN HCL [Glucophage] 500 mg PO DAILY Ipratropium/Albuterol Sulfate [Combivent Respimat Inhaler] 2 puff INHALATION RT-QID Ondansetron Odt [Zofran ODT] 4 mg SL BID PRN PRN Reason: Nausea Spironolactone [Aldactone] 50 mg PO BID #120 tab HYDROcodone/APAP 10-325MG [[place] 10-325] 1 tab PO Q4HR PRN PRN Reason: Pain Aspirin [Adult Low Dose Aspirin EC] 162 mg PO DAILY Enoxaparin Sodium 80 mg SQ BID Discontinued Metoprolol Tartrate [Lopressor] 75 mg PO BID #60 tab Furosemide [Lasix] 40 mg PO BID #60 tablet Discharge Medication List Albuterol Inhaler [Ventolin Hfa Inhaler] 2 puff INHALATION RT-Q4H PRN #1 puff 03/17/18 [Rx] Cyclobenzaprine [Flexeril] 10 mg PO TID PRN #90 tab 03/17/18 [Rx] Ipratropium-Albuterol Nebulize [Duoneb 0.5 mg-3 mg/3 ml Soln] 3 ml INHALATION RT-QID #120 ampul.neb 03/17/18 [Rx] Isosorbide Mononitrate ER [Imdur] 30 mg PO DAILY #30 tab.er.24h 03/17/18 [Rx] Nitroglycerin Sl Tabs [Nitrostat] 0.4 mg SUBLINGUAL Q5M PRN #100 tab 03/17/18 [Rx] Pantoprazole [Protonix] 40 mg PO AC-BRKFST #30 tablet. 03/17/18 [Rx] Ipratropium/Albuterol Sulfate [Combivent Respimat Inhaler] 2 puff INHALATION RT- QID 05/08/18 [History] Ondansetron Odt [Zofran ODT] 4 mg SL BID PRN 05/08/18 [History] metFORMIN HCL [Glucophage] 500 mg PO DAILY 05/08/18 [History] Spironolactone [Aldactone] 50 mg PO BID #120 tab 05/11/18 [Rx] Aspirin [Adult Low Dose Aspirin EC] 162 mg PO DAILY 06/27/18 [History] Enoxaparin Sodium 80 mg SQ BID 06/27/18 [History] HYDROcodone/APAP 10-325MG [[place] 10-325] 1 tab PO Q4HR PRN 06/27/18 [History] Metoprolol Tartrate [Lopressor] 25 mg PO BID #60 tab 07/12/18 [Rx] Follow up Appointment(s)/Referral(s): Andrews Escobar MD [Primary Care Provider] - 07/14/18 1:10 pm Maria Victoria Mayers MD [STAFF PHYSICIAN] - 07/28/18 2:45 pm Patient Instructions/Handouts: Heart Failure (DC) Activity/Diet/Wound Care/Special Instructions: Do not take thoracentesis bandage off until 11AM 07/13. Do not shower until bandage is off on 07/13.
== END 2018-07-12 15:52 | disposition home or self-care (01) | DRG 292 ==
LOC: EC 11:04 → 3SCARD 13:29 → 4SSUR 07-10 17:07
PROVIDERS: ADMIT Family Medicine; ATTEND Family Medicine
PROC: 0W993ZZ Drainage of Right Pleural Cavity, Percutaneous Approach (ICD-10-PCS; principal; 2018-07-08)
PROC: 0W993ZZ Drainage of Right Pleural Cavity, Percutaneous Approach (ICD-10-PCS; 2018-07-11)
PROC: 0W993ZZ Drainage of Right Pleural Cavity, Percutaneous Approach (ICD-10-PCS; 2018-07-12)
DX: I11.0 Hypertensive heart disease with heart failure (principal); J90 Pleural effusion, not elsewhere classified; I48.1 Persistent atrial fibrillation; J98.11 Atelectasis; R18.8 Other ascites; I50.43 Acute on chronic combined systolic (congestive) and diastolic (congestive) heart failure; F17.210 Nicotine dependence, cigarettes, uncomplicated; E11.9 Type 2 diabetes mellitus without complications; E78.5 Hyperlipidemia, unspecified; G89.29 Other chronic pain; I25.10 Atherosclerotic heart disease of native coronary artery without angina pectoris; I25.2 Old myocardial infarction; I25.5 Ischemic cardiomyopathy; I27.20 Pulmonary hypertension, unspecified; I45.10 Unspecified right bundle-branch block; I48.2 Chronic atrial fibrillation; J44.9 Chronic obstructive pulmonary disease, unspecified; K21.9 Gastro-esophageal reflux disease without esophagitis; Z79.82 Long term (current) use of aspirin; Z79.899 Other long term (current) drug therapy; Z82.49 Family history of ischemic heart disease and other diseases of the circulatory system; Z83.3 Family history of diabetes mellitus; Z85.21 Personal history of malignant neoplasm of larynx; Z86.711 Personal history of pulmonary embolism; I69.334 Monoplegia of upper limb following cerebral infarction affecting left non-dominant side; Z92.3 Personal history of irradiation; Z95.5 Presence of coronary angioplasty implant and graft; Z88.5 Allergy status to narcotic agent; Z88.8 Allergy status to other drugs, medicaments and biological substances; R13.10 Dysphagia, unspecified; G56.03 Carpal tunnel syndrome, bilateral upper limbs; K43.2 Incisional hernia without obstruction or gangrene; I49.3 Ventricular premature depolarization; Z87.440 Personal history of urinary (tract) infections; R10.9 Unspecified abdominal pain
CPT/HCPCS: 32555; 36415; 49083; 71045; 71046; 76604; 76705; 80048; 80053; 82150; 82550; 83690; 83735; 83880; 84484; 85025; 85049; 85610; 85730; 93005; 94640; 94760; 96374; 99285

== ENCOUNTER 2018-07-31 13:21 | Inpatient (IN) | payer OTHER ==
[2018-07-31] MEDS ORDERED: IPRATROPIUM-ALBUTEROL 3 ML NEB INHALATION STA (13:42)
[2018-07-31] MEDS ORDERED: HYDROmorphone 1 MG/ML 1 ML SYRINGE IVP STA (13:42)
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
[2018-07-31 14:31] LABS: Anisocytosis Slight; Basophils % (A) 1 %; Eosinophils # (A) 0.1 k/uL (0-0.7); Eosinophils % (A) 2 %; HCT 43.2 % (39.0-53.0); HGB 13.5 gm/dL (13.0-17.5); Hypochromasia Slight; Lymphocytes # (A) 0.4 k/uL (1.0-4.8); Lymphocytes % (A) 7 %; MCH 27.6 pg (25.0-35.0); MCHC 31.3 g/dL (31.0-37.0); MCV 88.4 fL (80.0-100.0); Mean Platelet Volume 7.6; Monocytes # (A) 0.4 k/uL (0-1.0); Monocytes % (A) 8 %; Neutrophils # (A) 4.5 k/uL (1.3-7.7); Neutrophils % (A) 81 %; Platelet Count 225 k/uL (150-450); RBC 4.89 m/uL (4.30-5.90); WBC 5.5 k/uL (3.8-10.6)
[2018-07-31 14:39] LABS: INR 1.2 (<1.2); Partial Thromboplastin Time 29.8 sec (22.0-30.0); Prothrombin Time 12.2 sec (9.0-12.0)
[2018-07-31 14:40] LABS: ALT 17 U/L (21-72); AST 34 U/L (17-59); Albumin 3.9 g/dL (3.5-5.0); Alkaline Phosphatase 452 U/L (38-126); Amylase 40 U/L (30-110); Anion Gap 9 mmol/L; Blood Urea Nitrogen 18 mg/dL (9-20); Calcium 9.7 mg/dL (8.4-10.2); Carbon Dioxide 28 mmol/L (22-30); Chloride 100 mmol/L (98-107); Glucose 89 mg/dL (74-99); Lipase 20 U/L (23-300); Magnesium 1.8 mg/dL (1.6-2.3); Potassium 4.2 mmol/L (3.5-5.1); Sodium 137 mmol/L (137-145); Total Bilirubin 1.6 mg/dL (0.2-1.3); Total Protein 7.4 g/dL (6.3-8.2)
--- NOTE | 2018-07-31 14:57 | XR ---
EXAMINATION TYPE: XR chest 2V DATE OF EXAM: 07/31/2018 COMPARISON: Chest radiograph 07/12/2018 HISTORY: Chest pain TECHNIQUE: Frontal and lateral views of the chest are obtained. FINDINGS: Interval worsening of right-sided pleural effusion with associated atelectasis. The right l corina remains clear. Anterior cervical fusion involving the lower cervical spine. Osseous structures ar e otherwise unremarkable and unchanged. Limited evaluation of the upper abdomen is unremarkable. IMPRESSION: Worsening right-sided pleural effusion with associated atelectasis when compared to the most recent p rior study of 07/12/2018. The size of the pleural effusion appears similar when compared to study from 07/11/2018 which is prior to recent thoracentesis.
[2018-07-31] MEDS ORDERED: NALOXONE 0.4 MG/ML 1 ML VIAL IV PRN (16:29)
[2018-07-31] MEDS ORDERED: NITROGLYCERIN SL TABS 0.4 MG TAB SUBLINGUAL PRN (16:32)
[2018-07-31] MEDS: SODIUM CHLORIDE 0.9% 1,000 ML IV SCH (17:33)
[2018-07-31] MEDS: CYCLOBENZAPRINE 10 MG TAB PO PRN (18:32)
[2018-07-31] MEDS: HYDROcodone/APAP 10-325MG 1 EACH TAB PO PRN (18:32)
[2018-07-31] MEDS: methylPREDNISolone SOD SUCCI 125 MG/2 ML VIAL IV SCH (19:22)
[2018-07-31] MEDS: IPRATROPIUM-ALBUTEROL 3 ML NEB INHALATION SCH ×2 (19:42→23:14)
[2018-07-31] MEDS: SPIRONOLACTONE 25 MG TAB PO SCH (19:52)
[2018-07-31] MEDS: METOPROLOL TARTRATE 25 MG TAB PO SCH (19:52)
[2018-07-31] MEDS: APIXABAN 5 MG TAB PO SCH (19:52)
[2018-07-31 20:09] LABS: Glucose,Whole Blood 77 mg/dL (75-99)
[2018-08-01] MEDS: methylPREDNISolone SOD SUCCI 125 MG/2 ML VIAL IV SCH ×3 (00:14→12:17)
[2018-08-01] MEDS: IPRATROPIUM-ALBUTEROL 3 ML NEB INHALATION SCH ×6 (03:17→23:24)
[2018-08-01] MEDS: ISOSORBIDE MONONITRATE ER 30 MG TAB.ER.24H PO SCH (08:19)
[2018-08-01] MEDS: APIXABAN 5 MG TAB PO SCH (08:19)
[2018-08-01] MEDS: metFORMIN 500 MG TAB PO SCH (08:19)
[2018-08-01] MEDS: ASPIRIN 81 MG PO SCH (08:19)
[2018-08-01] MEDS: METOPROLOL TARTRATE 25 MG TAB PO SCH ×2 (08:19→21:11)
[2018-08-01] MEDS: PANTOPRAZOLE 40 MG TABLET PO SCH (08:19)
[2018-08-01] MEDS: SPIRONOLACTONE 25 MG TAB PO SCH ×2 (08:20→21:04)
[2018-08-01 09:58] LABS: Glucose,Whole Blood 75 mg/dL (75-99)
[2018-08-01 11:55] LABS: Glucose,Whole Blood 84 mg/dL (75-99)
[2018-08-01] MEDS: HYDROcodone/APAP 10-325MG 1 EACH TAB PO PRN (12:16)
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
[2018-08-01 13:04] VITALS: BMI 25.0
[2018-08-01] MEDS: HYDROmorphone 0.5 MG/0.5 ML SYRINGE IVP PRN ×2 (14:34→21:11)
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
[2018-08-01 16:39] LABS: Glucose,Whole Blood 105 mg/dL (75-99)
[2018-08-01] MEDS: SODIUM CHLORIDE 0.9% 1,000 ML IV SCH (18:07)
[2018-08-01 20:38] LABS: Glucose,Whole Blood 113 mg/dL (75-99)
[2018-08-01] MEDS: FUROSEMIDE 10 MG/ML 4 ML VIAL IV SCH (21:04)
[2018-08-02] MEDS: HYDROcodone/APAP 10-325MG 1 EACH TAB PO PRN ×3 (03:25→21:18)
[2018-08-02] MEDS: IPRATROPIUM-ALBUTEROL 3 ML NEB INHALATION SCH ×6 (03:31→23:19)
[2018-08-02 07:15] LABS: Glucose,Whole Blood 87 mg/dL (75-99)
[2018-08-02] MEDS: HYDROmorphone 0.5 MG/0.5 ML SYRINGE IVP PRN ×3 (08:20→23:25)
[2018-08-02] MEDS: ISOSORBIDE MONONITRATE ER 30 MG TAB.ER.24H PO SCH (08:22)
[2018-08-02] MEDS: METOPROLOL TARTRATE 25 MG TAB PO SCH ×2 (08:22→21:29)
[2018-08-02] MEDS: SPIRONOLACTONE 25 MG TAB PO SCH ×2 (08:23→21:18)
[2018-08-02] MEDS: metFORMIN 500 MG TAB PO SCH (08:23)
[2018-08-02] MEDS: ASPIRIN 81 MG PO SCH (08:23)
[2018-08-02] MEDS: PANTOPRAZOLE 40 MG TABLET PO SCH (08:23)
[2018-08-02] MEDS: FUROSEMIDE 10 MG/ML 4 ML VIAL IV SCH ×2 (08:25→21:18)
--- NOTE | 2018-08-02 10:21 | XR ---
EXAMINATION TYPE: XR chest 2V DATE OF EXAM: 08/02/2018 COMPARISON: Prior chest x-ray 07/31/2018 HISTORY: Shortness of breath TECHNIQUE: Frontal and lateral views of the chest are obtained. FINDINGS: Increased opacity in the right lung base obscures the hemidiaphragm and right heart border . No pneumothorax. Interstitium is mildly increased. Heart size is likely stable. Postop changes note d to the cervical spine. Minimal blunting of the left costophrenic angle is noted. Coronary artery ca lcifications and stents noted. IMPRESSION: Pleural effusion on the right possibly left. Correlate to exclude interstitial edema. Fo llow-up recommended.
[2018-08-02 11:50] LABS: Glucose,Whole Blood 115 mg/dL (75-99)
--- NOTE | 2018-08-02 12:03 | P.PN ---
Subjective Progress Note Date: 08/02/18 Principal diagnosis: recurrent pleural effusion This is a 63-year-old white male patient of Dr. Andrews Escobar, well-known to us from multiple previous admissions for complications related to his chronic systolic/diastolic congestive heart failure, recurrent pleural effusion, freque nt paracentesis. Patient has a history of severe cardiomyopathy with the baseline ejection fraction of 20-25%, chronic atrial fibrillation, hypertension, diabetes mellitus, coronary artery disease with previous stent placement. History of laryngeal cancer status post radiation, COPD, and patient does not usually wear oxygen at baseline. On 07/31/2018 patient presented to the emergency department with complaints of pain that started on the left side of his lower abdomen and traveling all the way up to his left shoulder, he states that he's been having increased abdominal swelling and peripheral edema. Denied any fever chills or sweats. Denied any cough or congestion. No wheezing, not significantly more dyspneic from his baseline. Chest x-ray revealed worsening right-sided pleural effusion with associated atelectasis compared to most recent prior chest x-ray on 07/12/2018. Most recently patient had the right-sided thoracentesis on 07/11/2018 by interventional radiology with removal of 0.55 L of straw-colored fluid. Patient had paracentesis done on the same day with removal of 1.7 L of ascitic fluid. he states he is about due for repeat paracentesis. He reports increased bloating, and increased fatigue. Afebrile. Lab work was negative for any leukocytosis, with blood cell, 5.5, hemoglobin of 13.5, INR was 1.2, electrolytes and renal profile were unremarkable. ProBNP is 5490, troponin was negative 1. During our evaluation patient is calm and comfortable, he is resting in bed, currently on 3 L of oxygen with a pulse ox of 95%, lung sounds positive for diminished breath sounds over right lower base, no wheezing, no rhonchi, patient is unsure whether he wants to have his fluid drained on the right side of his chest. On 08/02/2018 patient seen in follow-up on medical surgical floor. He is resting quietly in bed, in no acute distress, he still has the left-sided pain from his abdomen to his left shoulder,patient is on oral [place] as and IV Dilaudid. He denies any worsening shortness of breath, he is on breathing treatments, lung sounds are diminished over right lower lobe, no rhonchi, no wheezing. Yesterday he wasn't sure about repeat in the right-sided thoracentesis, and we started the patient on IV Lasix, he has been refusing. He is due for his repeat paracentesis sometime tomorrow, we will obtain a chest x- ray tomorrow, patient denies any significant shortness of breath, and his main complaint is pain control. Objective - Vital Signs Vital signs: Vital Signs Temp 98 F 08/02/18 07:00 Pulse 86 08/02/18 11:35 Resp 12 08/02/18 08:22 BP 131/88 08/02/18 07:00 Pulse Ox 100 08/02/18 07:00 Intake & Output 08/01/18 08/02/18 08/02/18 18:59 06:59 18:59 Intake Total 720 480 Output Total 0 Balance 720 480 Weight 72.575 kg Intake: Oral 720 480 Output: Urine 0 Other: # Voids 1 3 - Exam GENERAL EXAM: Alert, 63-year-old white male, on 3 L of oxygen with a pulse ox of 95% comfortable in no apparent distress. HEAD: Normocephalic/atraumatic. EYES: Normal reaction of pupils, equal size. Conjunctiva pink, sclera white. NOSE: Clear with pink turbinates. THROAT: No erythema or exudates. NECK: No masses, no JVD, no thyroid enlargement, no adenopathy. CHEST: No chest wall deformity. Symmetrical expansion. LUNGS: Equal air entry with no crackles, wheeze, rhonchi or dullness. Diminished breath sounds with dullness to percussion over right lower base CVS: Regular rate and rhythm, normal S1 and S2, no gallops, no murmurs, no rubs ABDOMEN: Soft, nontender. No hepatosplenomegaly, normal bowel sounds, no guarding or rigidity. Multiple healed scars on patient's abdomen EXTREMITIES: No clubbing, 1+ pitting lower extremity edema, no cyanosis, 2+ pulses and upper and lower extremities. MUSCULOSKELETAL: Muscle strength and tone normal. SPINE: No scoliosis or deformity SKIN: No rashes CENTRAL NERVOUS SYSTEM: Alert and oriented -3. No focal deficits, tone is normal in all 4 extremities. PSYCHIATRIC: Alert and oriented -3. Appropriate affect. Intact judgment and i nsight. - Labs CBC & Chem 7: 07/31/18 14:15 07/31/18 14:15 Labs: Abnormal Lab Results - Last 24 Hours (Table) 08/01/18 08/01/18 08/02/18 Range/Units 16:38 20:37 11:48 POC Glucose (mg/dL) 105 H 113 H 115 H (75-99) mg/dL Assessment and Plan Plan: Assessment: #1. Recurrent right-sided pleural effusion increased compared to prior chest x- ray done on 07/12/2018 after right-sided thoracentesis performed by interventional radiology would removal of 0.55 L of pleural fluid. Patient also had paracentesis on 07/11/2018 with the removal of 1.3 L of ascitic fluid #2. Left-sided abdominal pain traveling up to the left shoulder of unclear etiology #3. Acute on chronic congestive heart failure with systolic and diastolic dysfunction and severe refractory ascites requiring frequent paracentesis with underlying ejection fraction of 20-25% #4. Chronic lower extremity edema #5. Recurrent ascites #6. History of laryngeal cancer treated with radiation #7. Hypertension, hyperlipidemia #8. Diabetes mellitus #9. History of coronary artery disease with previous history of stenting #10. Chronic and ongoing history of smoking #11. COPD currently stable Plan: Continue the IV Lasix, although patient has been refusing it, no worsening shortness of breath, remains on 3 L of oxygen, continue breathing treatments, patient is apparently having not paracentesis done tomorrow by interventional radiology, we'll repeat chest x-ray tomorrow, continue to follow. I performed a history & physical examination of the patient and discussed their management with my nurse practitioner, Vika Aceves. I reviewed the nurse practitioner's note and agree with the documented findings and plan of care. Lung sounds are positive for diminished breath sounds at right base. The findings and the impression was discussed with the patient. I attest to the documentation by the nurse practitioner. Time with Patient: Less than 30
--- NOTE | 2018-08-02 12:20 | P.PN ---
Objective - Vital Signs Vital signs: Vital Signs Temp 98 F 08/02/18 07:00 Pulse 86 08/02/18 11:35 Resp 12 08/02/18 08:22 BP 131/88 08/02/18 07:00 Pulse Ox 100 08/02/18 07:00 Intake & Output 08/01/18 08/02/18 08/02/18 18:59 06:59 18:59 Intake Total 720 480 Output Total 0 Balance 720 480 Weight 72.575 kg Intake: Oral 720 480 Output: Urine 0 Other: # Voids 1 3 - Constitutional General appearance: Present: mild distress - EENT Eyes: Present: PERRLA Ears: bilateral: normal - Neck Neck: Present: normal ROM - Respiratory Respiratory: bilateral: diminished - Cardiovascular Rhythm: irregularly irregular - Gastrointestinal General gastrointestinal: Present: distended - Integumentary Integumentary: Present: normal - Neurologic Neurologic: Present: CNII-XII intact - Musculoskeletal Musculoskeletal: Present: generalized weakness - Psychiatric Psychiatric: Present: A&O x's 3, appropriate affect, intact judgment & insight - Labs CBC & Chem 7: 07/31/18 14:15 07/31/18 14:15 Labs: Abnormal Lab Results - Last 24 Hours (Table) 08/01/18 08/01/18 08/02/18 Range/Units 16:38 20:37 11:48 POC Glucose (mg/dL) 105 H 113 H 115 H (75-99) mg/dL - Imaging and Cardiology Chest x-ray: report reviewed Assessment and Plan Plan: Assessment COPD exacerbation recurrent right pleural effusion history of thoracentesis History of atrial fibrillation persistent Coronary disease history of NM and stents Congestive heart failure stable history of pulmonary hypertension systolic dysfunction CVA/TIA Diabetes type 2 History of DVT with PE GERD Abdominal ascites frequent paracentesis Plan Continue consultation with pulmonology Patient in need of paracentesis and thoracentesis
[2018-08-02 12:51] LABS: Anion Gap 6 mmol/L; Blood Urea Nitrogen 21 mg/dL (9-20); Calcium 8.9 mg/dL (8.4-10.2); Carbon Dioxide 30 mmol/L (22-30); Chloride 102 mmol/L (98-107); Glucose 104 mg/dL (74-99); Potassium 5.3 mmol/L (3.5-5.1); Sodium 138 mmol/L (137-145)
[2018-08-02 16:57] LABS: Glucose,Whole Blood 118 mg/dL (75-99)
[2018-08-02] MEDS: SODIUM CHLORIDE 0.9% 1,000 ML IV SCH (21:16)
[2018-08-02 21:28] LABS: Glucose,Whole Blood 132 mg/dL (75-99)
[2018-08-03] MEDS: HYDROcodone/APAP 10-325MG 1 EACH TAB PO PRN ×2 (03:46→19:33)
[2018-08-03] MEDS: IPRATROPIUM-ALBUTEROL 3 ML NEB INHALATION SCH ×6 (03:57→23:29)
[2018-08-03 06:56] LABS: Glucose,Whole Blood 88 mg/dL (75-99)
[2018-08-03 08:07] LABS: Anion Gap 6 mmol/L; Blood Urea Nitrogen 22 mg/dL (9-20); Carbon Dioxide 33 mmol/L (22-30); Chloride 98 mmol/L (98-107); Glucose 89 mg/dL (74-99); Potassium 4.5 mmol/L (3.5-5.1); Sodium 137 mmol/L (137-145)
--- NOTE | 2018-08-03 08:34 | XR ---
EXAMINATION TYPE: XR chest 2V DATE OF EXAM: 08/03/2018 COMPARISON: 08/02/2018 TECHNIQUE: PA and lateral views submitted. HISTORY: Shortness of breath FINDINGS: Bilateral consolidation and pleural effusion greater on the right stable. Cardiomegaly noted. Central venous congestion not excluded. Postsurgical change overlying cervical spine. There is atherosclerot ic change aorta and calcified lymph nodes in the mediastinum. No pneumothorax. IMPRESSION: 1. Severe cardiomegaly with bilateral consolidation and pleural effusion correlate for CHF.
[2018-08-03] MEDS: FUROSEMIDE 10 MG/ML 4 ML VIAL IV SCH ×2 (08:35→21:26)
[2018-08-03] MEDS: metFORMIN 500 MG TAB PO SCH (08:35)
[2018-08-03] MEDS: PANTOPRAZOLE 40 MG TABLET PO SCH (08:35)
[2018-08-03] MEDS: METOPROLOL TARTRATE 25 MG TAB PO SCH ×2 (08:35→21:26)
[2018-08-03] MEDS: ISOSORBIDE MONONITRATE ER 30 MG TAB.ER.24H PO SCH (08:35)
[2018-08-03] MEDS: SPIRONOLACTONE 25 MG TAB PO SCH ×2 (08:36→21:25)
[2018-08-03] MEDS: HYDROmorphone 0.5 MG/0.5 ML SYRINGE IVP PRN ×3 (08:36→21:26)
[2018-08-03] MEDS: ASPIRIN 81 MG PO SCH (08:37)
--- NOTE | 2018-08-03 09:23 | US ---
EXAMINATION TYPE: US abdomen limited DATE OF EXAM: 08/03/2018 COMPARISON: US CLINICAL HISTORY: evaluate for ascites. Ascites check Moderate amount of ascites within ABD IMPRESSION: Moderate amount of ascites
--- NOTE | 2018-08-03 10:32 | P.PN ---
Subjective Progress Note Date: 08/03/18 Patient name ambulating freely in room. Awaiting paracentesis today thoracentesis tomorrow Objective - Vital Signs Vital signs: Vital Signs Temp 97.5 F L 08/03/18 07:15 Pulse 72 08/03/18 08:40 Resp 16 08/03/18 07:15 BP 114/72 08/03/18 07:15 Pulse Ox 99 08/03/18 07:15 Intake & Output 08/02/18 08/03/18 08/03/18 18:59 06:59 18:59 Intake Total 3 Output Total 300 Balance 3 -300 Intake: Intake, IV Titration 3 Amount Sodium Chloride 0.9% 1, 3 000 ml @ 20 mls/hr IV . Q24H [facility] Rx#:[id number] Output: Urine 300 Other: Voiding Method Toilet # Voids 1 # [place] 1 - Constitutional General appearance: Present: mild distress - EENT Eyes: Present: PERRLA - Respiratory Respiratory: bilateral: diminished - Cardiovascular Rhythm: irregularly irregular Abnormal Heart Sounds: Present: systolic murmur - Gastrointestinal General gastrointestinal: Present: distended, ventral hernia - Integumentary Integumentary: Present: normal - Neurologic Neurologic: Present: CNII-XII intact - Musculoskeletal Musculoskeletal: Present: gait normal - Psychiatric Psychiatric: Present: A&O x's 3, appropriate affect, intact judgment & insight - Labs CBC & Chem 7: 07/31/18 14:15 08/03/18 07:07 Labs: Abnormal Lab Results - Last 24 Hours (Table) 08/02/18 08/02/18 08/02/18 Range/Units 11:48 12:27 16:55 Potassium 5.3 H (3.5-5.1) mmol/L Carbon Dioxide (22-30) mmol/L BUN 21 H (9-20) mg/dL Glucose 104 H (74-99) mg/dL POC Glucose (mg/dL) 115 H 118 H (75-99) mg/dL 08/02/18 08/03/18 Range/Units 21:26 07:07 Potassium (3.5-5.1) mmol/L Carbon Dioxide 33 H (22-30) mmol/L BUN 22 H (9-20) mg/dL Glucose (74-99) mg/dL POC Glucose (mg/dL) 132 H (75-99) mg/dL - Imaging and Cardiology Chest x-ray: report reviewed US - abdomen: report reviewed Assessment and Plan Plan: Assessment COPD exacerbation Recurrent right pleural effusion Abdominal ascites chronic History of laryngeal cancer Atrial fibrillation persistent Coronary disease with ND and stents Congestive heart failure systolic dysfunction chronic CVA/TIA Diabetes type 2 History of DVT and pulmonary embolism GERD Pulmonary hypertension Plan Paracentesis today Thoracentesis tomorrow Continue consultation with pulmonology
[2018-08-03 11:47] LABS: Glucose,Whole Blood 111 mg/dL (75-99)
--- NOTE | 2018-08-03 14:46 | P.PN ---
Subjective Progress Note Date: 08/03/18 Principal diagnosis: recurrent pleural effusion This is a 63-year-old white male patient of Dr. Andrews Escobar, well-known to us from multiple previous admissions for complications related to his chronic systolic/diastolic congestive heart failure, recurrent pleural effusion, freque nt paracentesis. Patient has a history of severe cardiomyopathy with the baseline ejection fraction of 20-25%, chronic atrial fibrillation, hypertension, diabetes mellitus, coronary artery disease with previous stent placement. History of laryngeal cancer status post radiation, COPD, and patient does not usually wear oxygen at baseline. On 07/31/2018 patient presented to the emergency department with complaints of pain that started on the left side of his lower abdomen and traveling all the way up to his left shoulder, he states that he's been having increased abdominal swelling and peripheral edema. Denied any fever chills or sweats. Denied any cough or congestion. No wheezing, not significantly more dyspneic from his baseline. Chest x-ray revealed worsening right-sided pleural effusion with associated atelectasis compared to most recent prior chest x-ray on 07/12/2018. Most recently patient had the right-sided thoracentesis on 07/11/2018 by interventional radiology with removal of 0.55 L of straw-colored fluid. Patient had paracentesis done on the same day with removal of 1.7 L of ascitic fluid. he states he is about due for repeat paracentesis. He reports increased bloating, and increased fatigue. Afebrile. Lab work was negative for any leukocytosis, with blood cell, 5.5, hemoglobin of 13.5, INR was 1.2, electrolytes and renal profile were unremarkable. ProBNP is 5490, troponin was negative 1. During our evaluation patient is calm and comfortable, he is resting in bed, currently on 3 L of oxygen with a pulse ox of 95%, lung sounds positive for diminished breath sounds over right lower base, no wheezing, no rhonchi, patient is unsure whether he wants to have his fluid drained on the right side of his chest. On 08/02/2018 patient seen in follow-up on medical surgical floor. He is resting quietly in bed, in no acute distress, he still has the left-sided pain from his abdomen to his left shoulder,patient is on oral [place] as and IV Dilaudid. He denies any worsening shortness of breath, he is on breathing treatments, lung sounds are diminished over right lower lobe, no rhonchi, no wheezing. Yesterday he wasn't sure about repeat in the right-sided thoracentesis, and we started the patient on IV Lasix, he has been refusing. He is due for his repeat paracentesis sometime tomorrow, we will obtain a chest x- ray tomorrow, patient denies any significant shortness of breath, and his main complaint is pain control. On 08/03/2018 patient seen in follow-up on the medical surgical floor. He is awake and alert, he had his ultrasound-guided paracentesis today with removal of 2.7 L of ascitic fluid. He states he still feels somewhat short of breath, and he is now agreeable to have paracentesis done, today's chest x-ray was reviewed and showed severe cardiomegaly, with bilateral consolidation and pleural effusions, or on the right side. It is on IV diuretics at 40 mg every 12 hours, Bactrim, nebulized bronchodilators. Lower extremity edema is slightly improved, still has some residual edema. He states he is reading easier with oxygen on, currently on 3 L with a pulse ox of 96%, no fever or chills, or congestion. We'll proceed with the right-sided thoracentesis tomorrow, taking PT/INR today. Patient is agreeable to the plan. Objective - Vital Signs Vital signs: Vital Signs Temp 97.8 F 08/03/18 13:33 Pulse 84 08/03/18 13:33 Resp 16 08/03/18 13:33 BP 114/70 08/03/18 13:33 Pulse Ox 96 08/03/18 13:33 Intake & Output 08/02/18 08/03/18 08/03/18 18:59 06:59 18:59 Intake Total 3 Output Total 300 Balance 3 -300 Intake: Intake, IV Titration 3 Amount Sodium Chloride 0.9% 1, 3 000 ml @ 20 mls/hr IV . Q24H MARY BETH Rx#:[id number] Output: Urine 300 Other: Voiding Method Toilet Toilet # Voids 1 # Emeses 1 - Exam GENERAL EXAM: Alert, 63-year-old white male, on 3 L of oxygen with a pulse ox of 95% comfortable in no apparent distress. HEAD: Normocephalic/atraumatic. EYES: Normal reaction of pupils, equal size. Conjunctiva pink, sclera white. NOSE: Clear with pink turbinates. THROAT: No erythema or exudates. NECK: No masses, no JVD, no thyroid enlargement, no adenopathy. CHEST: No chest wall deformity. Symmetrical expansion. LUNGS: Equal air entry with no crackles, wheeze, rhonchi or dullness. Diminished breath sounds with dullness to percussion over right lower base CVS: Regular rate and rhythm, normal S1 and S2, no gallops, no murmurs, no rubs ABDOMEN: Soft, nontender. No hepatosplenomegaly, normal bowel sounds, no guarding or rigidity. Multiple healed scars on patient's abdomen EXTREMITIES: No clubbing, 1+ pitting lower extremity edema, no cyanosis, 2+ pulses and upper and lower extremities. MUSCULOSKELETAL: Muscle strength and tone normal. SPINE: No scoliosis or deformity SKIN: No rashes CENTRAL NERVOUS SYSTEM: Alert and oriented -3. No focal deficits, tone is normal in all 4 extremities. PSYCHIATRIC: Alert and oriented -3. Appropriate affect. Intact judgment and insight. - Labs CBC & Chem 7: 07/31/18 14:15 08/03/18 07:07 Labs: Abnormal Lab Results - Last 24 Hours (Table) 08/02/18 08/02/18 08/03/18 Range/Units 16:55 21:26 07:07 Carbon Dioxide 33 H (22-30) mmol/L BUN 22 H (9-20) mg/dL POC Glucose (mg/dL) 118 H 132 H (75-99) mg/dL 08/03/18 Range/Units 11:36 Carbon Dioxide (22-30) mmol/L BUN (9-20) mg/dL POC Glucose (mg/dL) 111 H (75-99) mg/dL Assessment and Plan Plan: Assessment: #1. Recurrent right-sided pleural effusion increased compared to prior chest x- ray done on 07/12/2018 after right-sided thoracentesis performed by interventional radiology would removal of 0.55 L of pleural fluid. Patient also had paracentesis on 07/11/2018 with the removal of 1.3 L of ascitic fluid. On 08/03/2018 patient had a repeat ultrasound-guided paracentesis with removal of 2.7 L of ascitic fluid. #2. Left-sided abdominal pain traveling up to the left shoulder of unclear etiology #3. Acute on chronic congestive heart failure with systolic and diastolic dysfunction and severe refractory ascites requiring frequent paracentesis with underlying ejection fraction of 20-25% #4. Chronic lower extremity edema #5. Recurrent ascites #6. History of laryngeal cancer treated with radiation #7. Hypertension, hyperlipidemia #8. Diabetes mellitus #9. History of coronary artery disease with previous history of stenting #10. Chronic and ongoing history of smoking #11. COPD currently stable Plan: Continue with current medical treatment, IV Lasix, Aldactone, we discussed the possibility of right-sided thoracentesis with the patient today and the patient was to proceed with thoracentesis tomorrow. I performed a history & physical examination of the patient and discussed their management with my nurse practitioner, Vika Aceves. I reviewed the nurse practitioner's note and agree with the documented findings and plan of care. Lung sounds are positive for diminished breath sounds at right base. The findings and the impression was discussed with the patient. I attest to the documentation by the nurse practitioner. Time with Patient: Less than 30
[2018-08-03 14:52] LABS: INR 1.2 (<1.2); Prothrombin Time 12.7 sec (9.0-12.0)
[2018-08-03 16:33] LABS: Appearance,BF Hazy; Color,BF Yellow
--- NOTE | 2018-08-03 17:03 | US ---
Therapeutic paracentesis. DATE OF EXAM: 08/03/2018 CLINICAL HISTORY: Ascites The procedure was discussed with the patient. The risks, complications, benefits, and alternatives we re discussed and any questions were answered. Informed consent was obtained. The patient was placed s upine on the ultrasound table and prepped and draped in the usual sterile fashion. All elements of maximal barrier technique were utilized. Under ultrasound guidance, access into the right lower quadrant was obtained, via the paracentesis catheter system and direct ultrasound guidanc e. Approximately 2.65 liters of straw-colored fluid was removed. The patient was stable throughout the p rocedure and remained stable upon discharge from Department of Radiology. IMPRESSION: Successful therapeutic paracentesis under ultrasound guidance.
[2018-08-03 17:18] LABS: Glucose,Whole Blood 168 mg/dL (75-99)
[2018-08-03 17:24] LABS: Nucleated Cells, Body Fluid 120 /uL; RBC, Body Fluid 600 /uL
[2018-08-03 17:27] LABS: Mononuclear WBC,Body Fluid 98 %; Polynuclear WBC,Body Fluid 2 %; Total Cells Counted,Body Fluid 100
[2018-08-03 20:48] LABS: Glucose,Whole Blood 91 mg/dL (75-99)
[2018-08-03] MEDS: SODIUM CHLORIDE 0.9% 1,000 ML IV SCH (22:48)
[2018-08-04] MEDS: HYDROcodone/APAP 10-325MG 1 EACH TAB PO PRN ×2 (02:29→08:14)
[2018-08-04] MEDS: IPRATROPIUM-ALBUTEROL 3 ML NEB INHALATION SCH ×6 (03:32→23:41)
[2018-08-04] MEDS: CYCLOBENZAPRINE 10 MG TAB PO PRN (04:52)
[2018-08-04 07:33] LABS: Glucose,Whole Blood 101 mg/dL (75-99)
[2018-08-04] MEDS: PANTOPRAZOLE 40 MG TABLET PO SCH (08:14)
[2018-08-04] MEDS: HYDROmorphone 0.5 MG/0.5 ML SYRINGE IVP PRN ×3 (09:02→22:51)
[2018-08-04] MEDS: FUROSEMIDE 10 MG/ML 4 ML VIAL IV SCH (10:06)
[2018-08-04] MEDS: metFORMIN 500 MG TAB PO SCH (10:07)
[2018-08-04] MEDS: ASPIRIN 81 MG PO SCH (10:09)
[2018-08-04] MEDS: METOPROLOL TARTRATE 25 MG TAB PO SCH ×2 (10:10→19:55)
[2018-08-04] MEDS: ISOSORBIDE MONONITRATE ER 30 MG TAB.ER.24H PO SCH (10:10)
[2018-08-04] MEDS: SPIRONOLACTONE 25 MG TAB PO SCH ×2 (10:11→19:55)
--- NOTE | 2018-08-04 10:50 | P.PN ---
Subjective Patient states relief of abdominal pain post paracentesis for abdominal ascites. Awaiting for us thoracentesis this afternoon Objective - Vital Signs Vital signs: Vital Signs Temp 98.5 F 08/04/18 07:56 Pulse 86 08/04/18 08:40 Resp 18 08/04/18 07:56 BP 107/60 08/04/18 07:56 Pulse Ox 97 08/04/18 07:56 Intake & Output 08/03/18 08/04/18 08/04/18 18:59 06:59 18:59 Output Total 950 Balance -950 Output: Urine 950 Other: Voiding Method Toilet Urinal # Voids 3 1 - Constitutional General appearance: Present: mild distress - EENT Eyes: Present: PERRLA Ears: bilateral: normal - Neck Neck: Present: normal ROM - Respiratory Respiratory: bilateral: diminished - Cardiovascular Rhythm: irregularly irregular - Gastrointestinal General gastrointestinal: Present: soft, ventral hernia - Integumentary Integumentary: Present: normal - Neurologic Neurologic: Present: CNII-XII intact - Musculoskeletal Musculoskeletal: Present: gait normal - Psychiatric Psychiatric: Present: A&O x's 3, appropriate affect, intact judgment & insight - Labs CBC & Chem 7: 07/31/18 14:15 08/03/18 07:07 Labs: Abnormal Lab Results - Last 24 Hours (Table) 08/03/18 08/03/18 08/03/18 Range/Units 11:36 14:17 17:17 PT 12.7 H (9.0-12.0) sec INR 1.2 H (<1.2) POC Glucose (mg/dL) 111 H 168 H (75-99) mg/dL 08/04/18 Range/Units 07:22 PT (9.0-12.0) sec INR (<1.2) POC Glucose (mg/dL) 101 H (75-99) mg/dL - Imaging and Cardiology Chest x-ray: report reviewed Assessment and Plan Plan: Assessment COPD exacerbation Recurrent right pleural effusion Chronic abdominal ascites several paracentesis post paracentesis from yesterday History of laryngeal cancer Atrial fibrillation persistent Coronary disease with history of IN and stents Congestive heart failure systolic dysfunction chronic CVA/TIA Diabetes type 2 History of DVT and pulmonary embolism GERD Pulmonary hypertension Plan Thoracentesis today Hopeful discharge soon
--- NOTE | 2018-08-04 13:18 | CDI ---
Documentation Clarification Form Date: 08/04/2018 12:33:48 PM From: Eliana Rodrigues RN, CCDS Admit Date: 08/02/2018 1:29:00 PM Patient Name: Silvino Monet Visit Number: [id number] Discharge Date: ATTENTION: The Clinical Documentation Specialists (CDI) and [facility] Coding Staff appreciate your assistance in clarifying documentation. Please respond to the clarification below the line at the bottom and electronically sign. The CDI & [facility] Coding staff will review the response and follow-up if needed. Please note: Queries are made part of the Legal Health Record. If you have any questions, please contact the author of this message via ITS. Dr. Andrews Escobar Conflicting documentation has been found in the medical record: History/Risk Factors: Laryngeal Cancer, COPD, Ascites, Atrial Fibrillation, Heart failure, DM, Liver Disease Clinical Indicators: present with complaints of pain left side of his lower abdomen, abdominal swelling and peripheral edema. Chest x-ray revealed worsening right-sided pleural effusion. Lung sounds are diminished. Extremities 1+ pitting lower extremity edema. 08/03/18 CXR: severe cardiomegaly with bilateral consolidation and pleural effusion correlate for CHF. 08/01/18 Pulmonary consult and ongoing progress notes: Acute on chronic heart failure with systolic and diastolic dysfunction EF of 20-25 % Labs: BNP 5490 ECHO ( 06/07/18): Severely impaired with an EF<20 % the right ventricle is severely enlarged Treatment: Lasix IV Q12/hrs Aldactone PO Lopressor PO, Imdur PO In your opinion, what is the most clinically appropriate diagnosis for this patient? Acute on Chronic Congestive Heart Failure with Systolic and Diastolic dysfunction Congestive Heart Failure Systolic dysfunction, Chronic Other explanation of clinical findings (specify) Unable to determine (no explanation for clinical findings) (Last Revision: June 2017) MTDD
--- NOTE | 2018-08-04 13:52 | P.PN ---
Progress Note - Text addendum Acute on chronic CHF systolic dysfunction ER 20-25%
[2018-08-04] MEDS: SODIUM CHLORIDE 0.9% 1,000 ML IV SCH (15:28)
--- NOTE | 2018-08-04 15:39 | XR ---
EXAMINATION TYPE: XR chest 1V DATE OF EXAM: 08/04/2018 COMPARISON: 08/03/2018 HISTORY: Status post thoracentesis TECHNIQUE: Single frontal view of the chest is obtained. FINDINGS: There is improved degree of pleural fluid on the right although moderate effusion remains. Trace left pleural effusion is seen. Associated bibasilar airspace disease remains. Coronary artery stent or less likely calcifications are noted. Minimal pulmonary vascular congestion is seen. Cardiom ediastinal silhouette is obscured. There is prominence of the right hilum. No acute osseous pathology . No pneumothorax. IMPRESSION: 1. Moderate right pleural effusion is somewhat improved from the prior of 08/03/2018 with trace left p leural effusion and bibasilar airspace disease remaining. 2. Right hilar prominence is noted that could relate to adenopathy, perihilar mass, or pulmonary kenyatta rial hypertension.
[2018-08-04 17:09] LABS: Glucose,Whole Blood 160 mg/dL (75-99)
--- NOTE | 2018-08-04 18:00 | P.PN ---
Subjective Progress Note Date: 08/04/18 Principal diagnosis: recurrent pleural effusion This is a 63-year-old white male patient of Dr. Andrews Escobar, well-known to us from multiple previous admissions for complications related to his chronic systolic/diastolic congestive heart failure, recurrent pleural effusion, freque nt paracentesis. Patient has a history of severe cardiomyopathy with the baseline ejection fraction of 20-25%, chronic atrial fibrillation, hypertension, diabetes mellitus, coronary artery disease with previous stent placement. History of laryngeal cancer status post radiation, COPD, and patient does not usually wear oxygen at baseline. On 07/31/2018 patient presented to the emergency department with complaints of pain that started on the left side of his lower abdomen and traveling all the way up to his left shoulder, he states that he's been having increased abdominal swelling and peripheral edema. Denied any fever chills or sweats. Denied any cough or congestion. No wheezing, not significantly more dyspneic from his baseline. Chest x-ray revealed worsening right-sided pleural effusion with associated atelectasis compared to most recent prior chest x-ray on 07/12/2018. Most recently patient had the right-sided thoracentesis on 07/11/2018 by interventional radiology with removal of 0.55 L of straw-colored fluid. Patient had paracentesis done on the same day with removal of 1.7 L of ascitic fluid. he states he is about due for repeat paracentesis. He reports increased bloating, and increased fatigue. Afebrile. Lab work was negative for any leukocytosis, with blood cell, 5.5, hemoglobin of 13.5, INR was 1.2, electrolytes and renal profile were unremarkable. ProBNP is 5490, troponin was negative 1. During our evaluation patient is calm and comfortable, he is resting in bed, currently on 3 L of oxygen with a pulse ox of 95%, lung sounds positive for diminished breath sounds over right lower base, no wheezing, no rhonchi, patient is unsure whether he wants to have his fluid drained on the right side of his chest. On 08/02/2018 patient seen in follow-up on medical surgical floor. He is resting quietly in bed, in no acute distress, he still has the left-sided pain from his abdomen to his left shoulder,patient is on oral [place] as and IV Dilaudid. He denies any worsening shortness of breath, he is on breathing treatments, lung sounds are diminished over right lower lobe, no rhonchi, no wheezing. Yesterday he wasn't sure about repeat in the right-sided thoracentesis, and we started the patient on IV Lasix, he has been refusing. He is due for his repeat paracentesis sometime tomorrow, we will obtain a chest x- ray tomorrow, patient denies any significant shortness of breath, and his main complaint is pain control. On 08/03/2018 patient seen in follow-up on the medical surgical floor. He is awake and alert, he had his ultrasound-guided paracentesis today with removal of 2.7 L of ascitic fluid. He states he still feels somewhat short of breath, and he is now agreeable to have paracentesis done, today's chest x-ray was reviewed and showed severe cardiomegaly, with bilateral consolidation and pleural effusions, or on the right side. It is on IV diuretics at 40 mg every 12 hours, Bactrim, nebulized bronchodilators. Lower extremity edema is slightly improved, still has some residual edema. He states he is reading easier with oxygen on, currently on 3 L with a pulse ox of 96%, no fever or chills, or congestion. We'll proceed with the right-sided thoracentesis tomorrow, taking PT/INR today. Patient is agreeable to the plan. On 08/04/2089 patient seen in follow-up on medical surgical floor. Resting comfortably in bed, on room air, denies any acute complaints, no signs are stable. No fever or chills, lung sounds reveal diminished breath sounds over right lower lobe, patient underwent right thoracentesis by Dr. Mc today, would removal of 1.2 L of pleural fluid. Follow-up chest x-ray showed improvement in the size of a right pleural effusion and trace left pleural effusion and bibasilar airspace disease, right hilar prominence could be related to pulmonary arterial hypertension. He states he is breathing easier, teens on IV diuretics, negative fluid balance, lower extremity edema is improving. yesterday labs show slightly increased CO2, likely related to volume contraction alkalosis, and we will switch the patient to oral Lasix. Objective - Vital Signs Vital signs: Vital Signs Temp 97.7 F 08/04/18 13:23 Pulse 86 08/04/18 16:30 Resp 18 08/04/18 13:23 BP 120/71 08/04/18 13:23 Pulse Ox 98 08/04/18 13:23 Intake & Output 08/03/18 08/04/18 08/04/18 18:59 06:59 18:59 Intake Total 400 Output Total 950 1000 Balance -950 -600 Weight 72.575 kg Intake: Oral 400 Output: Urine 950 Other 1000 Other: Voiding Method Toilet Urinal Urinal # Voids 3 1 - Exam GENERAL EXAM: Alert, 63-year-old white male, on 3 L of oxygen with a pulse ox of 95% comfortable in no apparent distress. HEAD: Normocephalic/atraumatic. EYES: Normal reaction of pupils, equal size. Conjunctiva pink, sclera white. NOSE: Clear with pink turbinates. THROAT: No erythema or exudates. NECK: No masses, no JVD, no thyroid enlargement, no adenopathy. CHEST: No chest wall deformity. Symmetrical expansion. LUNGS: Equal air entry with no crackles, wheeze, rhonchi or dullness. Diminished breath sounds with dullness to percussion over right lower base CVS: Regular rate and rhythm, normal S1 and S2, no gallops, no murmurs, no rubs ABDOMEN: Soft, nontender. No hepatosplenomegaly, normal bowel sounds, no guarding or rigidity. Multiple healed scars on patient's abdomen EXTREMITIES: No clubbing, 1+ pitting lower extremity edema, no cyanosis, 2+ pulses and upper and lower extremities. MUSCULOSKELETAL: Muscle strength and tone normal. SPINE: No scoliosis or deformity SKIN: No rashes CENTRAL NERVOUS SYSTEM: Alert and oriented -3. No focal deficits, tone is normal in all 4 extremities. PSYCHIATRIC: Alert and oriented -3. Appropriate affect. Intact judgment and insight. - Labs CBC & Chem 7: 07/31/18 14:15 08/03/18 07:07 Labs: Abnormal Lab Results - Last 24 Hours (Table) 08/04/18 08/04/18 Range/Units 07:22 17:08 POC Glucose (mg/dL) 101 H 160 H (75-99) mg/dL Assessment and Plan Plan: Assessment: #1. Recurrent right-sided pleural effusion increased compared to prior chest x- ray done on 07/12/2018 after right-sided thoracentesis performed by interventional radiology would removal of 0.55 L of pleural fluid. Patient also had paracentesis on 07/11/2018 with the removal of 1.3 L of ascitic fluid. On 08/03/2018 patient had a repeat ultrasound-guided paracentesis with removal of 2.7 L of ascitic fluid. On 08/04/2018 patient had a right-sided thoracentesis by Dr. Mc would removal of 1.2 L of pleural fluid #2. Left-sided abdominal pain traveling up to the left shoulder of unclear etiology #3. Acute on chronic congestive heart failure with systolic and diastolic dysfunction and severe refractory ascites requiring frequent paracentesis with underlying ejection fraction of 20-25% #4. Chronic lower extremity edema #5. Recurrent ascites #6. History of laryngeal cancer treated with radiation #7. Hypertension, hyperlipidemia #8. Diabetes mellitus #9. History of coronary artery disease with previous history of stenting #10. Chronic and ongoing history of smoking #11. COPD currently stable Plan: Right thoracentesis was done would removal 1.2 L of pleural fluid, patient jorje erated procedure very well, postprocedure chest x-ray has been reviewed with Dr. Mc, and it showed improvement in the appearance of a moderately sized right pleural effusion, and right hilar prominence, that could be related to underlying pulmonary arterial hypertension. We'll switch the IV Lasix to oral Lasix. from pulmonary perspective patient could be considered for discharge home tomorrow. We'll follow on as-needed basis. I performed a history & physical examination of the patient and discussed their management with my nurse practitioner, Vika Aceves. I reviewed the nurse pra ctitioner's note and agree with the documented findings and plan of care. Lung sounds are positive for diminished breath sounds at right base. The findings and the impression was discussed with the patient. I attest to the documentation by the nurse practitioner. Time with Patient: Less than 30
[2018-08-04 20:13] LABS: Glucose,Whole Blood 103 mg/dL (75-99)
[2018-08-05] MEDS: IPRATROPIUM-ALBUTEROL 3 ML NEB INHALATION SCH ×3 (04:14→11:26)
[2018-08-05] MEDS: HYDROmorphone 0.5 MG/0.5 ML SYRINGE IVP PRN ×2 (04:24→10:31)
[2018-08-05 07:00] LABS: Glucose,Whole Blood 130 mg/dL (75-99)
[2018-08-05] MEDS: PANTOPRAZOLE 40 MG TABLET PO SCH (07:00)
[2018-08-05 07:41] VITALS: BP 101/68; RESP 16; TEMP 98
[2018-08-05] MEDS ORDERED: FUROSEMIDE 40 MG TAB PO SCH (09:00)
[2018-08-05] MEDS: METOPROLOL TARTRATE 25 MG TAB PO SCH (09:09)
[2018-08-05] MEDS: ISOSORBIDE MONONITRATE ER 30 MG TAB.ER.24H PO SCH (09:09)
[2018-08-05] MEDS: ASPIRIN 81 MG PO SCH (09:09)
[2018-08-05] MEDS: metFORMIN 500 MG TAB PO SCH (09:09)
[2018-08-05] MEDS: SPIRONOLACTONE 25 MG TAB PO SCH (09:09)
[2018-08-05 11:28] VITALS: PULSE 92
[2018-08-05 11:45] LABS: Glucose,Whole Blood 105 mg/dL (75-99)
--- NOTE | 2018-08-05 12:24 | P.DS ---
Providers Date of admission: 08/02/18 13:29 Attending physician: Andrews Escobar Consults: 07/31/18 16:30 Consult Physician Routine Consulting Provider: Tonie Garcia Consult Reason/Comments: COPD, right pleural effusion Do you want consulting provider notified?: Yes Primary care physician: Andrews Escobar Hospital Course: 63-year-old male was admitted the for shortness of breath found to have bilateral pleural effusions right side significantly and had removal of around the 1.2 L of fluid pleural fluid along with the paracentesis with removal of 2.7 L of ascitic fluid patient apparently gets these pleural and acyanotic fluid 10.patient does have chronic liver dysfunction probably cirrhosis along with congestive heart failure ejection fraction of less than 20%. Patient is not taking any Lasix patient was started on Lasix from 40 mg daily may require more Lasix than that and may require potassium supplementation down the line basic metabolic profile will be tested to assess the requirement of potassium. Patient is clinically doing well saturating at 97% on room air up and amylase and patient will be discharged today. Patient does have history of COPD not in acute exacerbation at this time. Considering the patient's cirrhosis it may not be a good idea to continue [place] which will be discontinued at this time. PHYSICAL EXAMINATION: GENERAL: The patient is alert and oriented x3, not in any acute distress. thin built HEENT: Pupils are round and equally reacting to light. EOMI. No scleral icterus. No conjunctival pallor. Normocephalic, atraumatic. No pharyngeal erythema. No thyromegaly. CARDIOVASCULAR: S1 and S2 present. No murmurs, rubs, or gallops. PULMONARY: Chest is clear to auscultation, no wheezing or crackles. ABDOMEN: Soft, nontender, nondistended, normoactive bowel sounds. No palpable organomegaly. MUSCULOSKELETAL: No joint swelling or deformity. EXTREMITIES: No cyanosis, clubbing, or pedal edema. NEUROLOGICAL: Gross neurological examination did not reveal any focal deficits. SKIN: No rashes. for the chronic medical problems hospitalization course please refer to dictation from Dr. Escobar from yesterday Patient Condition at Discharge: Fair Plan - Discharge Summary Discharge Rx Participant: Yes New Discharge Prescriptions: New Furosemide [Lasix] 40 mg PO DAILY #30 tab Continue Ipratropium-Albuterol Nebulize [Duoneb 0.5 mg-3 mg/3 ml Soln] 3 ml INHALATION RT-QID #120 ampul.neb Pantoprazole [Protonix] 40 mg PO AC-BRKFST #30 tablet. Albuterol Inhaler [Ventolin Hfa Inhaler] 2 puff INHALATION RT-Q4H PRN #1 puff PRN Reason: Shortness Of Breath Isosorbide Mononitrate ER [Imdur] 30 mg PO DAILY #30 tab.er.24h Nitroglycerin Sl Tabs [Nitrostat] 0.4 mg SUBLINGUAL Q5M PRN #100 tab PRN Reason: Chest Pain Ipratropium/Albuterol Sulfate [Combivent Respimat Inhaler] 2 puff INHALATION RT-QID Spironolactone [Aldactone] 50 mg PO BID #120 tab Aspirin [Adult Low Dose Aspirin EC] 162 mg PO DAILY Metoprolol Tartrate [Lopressor] 25 mg PO BID #60 tab Apixaban [Eliquis] 5 mg PO BID #180 tab Discontinued Cyclobenzaprine [Flexeril] 10 mg PO TID PRN #90 tab PRN Reason: Pain metFORMIN HCL [Glucophage] 500 mg PO DAILY HYDROcodone/APAP 10-325MG [[place] 10-325] 1 tab PO Q4HR PRN PRN Reason: Pain Discharge Medication List Albuterol Inhaler [Ventolin Hfa Inhaler] 2 puff INHALATION RT-Q4H PRN #1 puff 03/17/18 [Rx] Ipratropium-Albuterol Nebulize [Duoneb 0.5 mg-3 mg/3 ml Soln] 3 ml INHALATION RT-QID #120 ampul.piter 03/17/18 [Rx] Isosorbide Mononitrate ER [Imdur] 30 mg PO DAILY #30 tab.er.24h 03/17/18 [Rx] Nitroglycerin Sl Tabs [Nitrostat] 0.4 mg SUBLINGUAL Q5M PRN #100 tab 03/17/18 [Rx] Pantoprazole [Protonix] 40 mg PO AC-BRKFST #30 tablet. 03/17/18 [Rx] Ipratropium/Albuterol Sulfate [Combivent Respimat Inhaler] 2 puff INHALATION RT- QID 05/08/18 [History] Spironolactone [Aldactone] 50 mg PO BID #120 tab 05/11/18 [Rx] Aspirin [Adult Low Dose Aspirin EC] 162 mg PO DAILY 06/27/18 [History] Metoprolol Tartrate [Lopressor] 25 mg PO BID #60 tab 07/12/18 [Rx] Apixaban [Eliquis] 5 mg PO BID #180 tab 07/13/18 [Rx] Furosemide [Lasix] 40 mg PO DAILY #30 tab 08/05/18 [Rx] Follow up Appointment(s)/Referral(s): Andrews Escobar MD [Primary Care Provider] - 3 Days Ambulatory/Diagnostic Orders: Basic Metabolic Panel [LAB.AMB] Location: None Selected Patient Instructions/Handouts: COPD (Chronic Obstructive Pulmonary Disease) (DC), Pleural Effusion (DC) Discharge Disposition: HOME SELF-CARE
[2018-08-10 08:01] LABS: Glucose,Whole Blood 130 mg/dL (75-99)
[2018-08-10 08:01] LABS: Glucose,Whole Blood 207 mg/dL (75-99)
== END 2018-08-05 12:45 | disposition home or self-care (01) | DRG 292 ==
LOC: EC 13:21 → 4SSUR 16:29 → OBSVTOIN 08-02 13:29
PROVIDERS: ADMIT Family Medicine; ATTEND Family Medicine
PROC: 0W9G3ZZ Drainage of Peritoneal Cavity, Percutaneous Approach (ICD-10-PCS; principal; 2018-08-03)
PROC: 0W993ZZ Drainage of Right Pleural Cavity, Percutaneous Approach (ICD-10-PCS; 2018-08-04)
DX: I11.0 Hypertensive heart disease with heart failure (principal); R18.8 Other ascites; E87.3 Alkalosis; J90 Pleural effusion, not elsewhere classified; I50.43 Acute on chronic combined systolic (congestive) and diastolic (congestive) heart failure; K21.9 Gastro-esophageal reflux disease without esophagitis; K43.9 Ventral hernia without obstruction or gangrene; I48.2 Chronic atrial fibrillation; F17.210 Nicotine dependence, cigarettes, uncomplicated; K74.60 Unspecified cirrhosis of liver; J44.9 Chronic obstructive pulmonary disease, unspecified; E11.9 Type 2 diabetes mellitus without complications; E78.5 Hyperlipidemia, unspecified; C32.9 Malignant neoplasm of larynx, unspecified; I27.20 Pulmonary hypertension, unspecified; I42.9 Cardiomyopathy, unspecified; F32.9 Major depressive disorder, single episode, unspecified; F41.9 Anxiety disorder, unspecified; I25.10 Atherosclerotic heart disease of native coronary artery without angina pectoris; Z95.5 Presence of coronary angioplasty implant and graft; I25.2 Old myocardial infarction; Z86.73 Personal history of transient ischemic attack (TIA), and cerebral infarction without residual deficits; Z86.718 Personal history of other venous thrombosis and embolism; Z86.711 Personal history of pulmonary embolism; Z92.3 Personal history of irradiation; Z79.01 Long term (current) use of anticoagulants; Z79.82 Long term (current) use of aspirin; Z79.84 Long term (current) use of oral hypoglycemic drugs; Z79.899 Other long term (current) drug therapy; Z82.49 Family history of ischemic heart disease and other diseases of the circulatory system; Z83.3 Family history of diabetes mellitus; Z85.819 Personal history of malignant neoplasm of unspecified site of lip, oral cavity, and pharynx
CPT/HCPCS: 36415; 49083; 71045; 71046; 76705; 80048; 80053; 82150; 83690; 83735; 83880; 84484; 85025; 85610; 85730; 88108; 88305; 89050; 93005; 94640; 94760; 96374; 99285

== ENCOUNTER 2018-08-23 16:54 | Inpatient (IN) | payer OTHER ==
[2018-08-23] MEDS ORDERED: SODIUM CHLORIDE 0.9% 1,000 ML IV STA (17:37)
[2018-08-23 18:01] LABS: Anisocytosis Slight; Basophils # (A) 0.1 k/uL (0-0.2); Basophils % (A) 1 %; Eosinophils # (A) 0.3 k/uL (0-0.7); Eosinophils % (A) 5 %; HGB 12.2 gm/dL (13.0-17.5); Hypochromasia Moderate; Lymphocytes # (A) 0.5 k/uL (1.0-4.8); Lymphocytes % (A) 9 %; MCH 27.2 pg (25.0-35.0); MCHC 30.5 g/dL (31.0-37.0); Mean Platelet Volume 7.7; Monocytes # (A) 0.4 k/uL (0-1.0); Monocytes % (A) 7 %; Neutrophils % (A) 75 %; Platelet Count 208 k/uL (150-450); RDW 18.1 % (11.5-15.5); WBC 5.3 k/uL (3.8-10.6)
[2018-08-23 18:08] LABS: ALT 9 U/L (21-72); AST 31 U/L (17-59); African American GFR (CKD) >90 (>60 ml/min/1.73 sqM); Albumin 3.6 g/dL (3.5-5.0); Alkaline Phosphatase 378 U/L (38-126); Anion Gap 8 mmol/L; Blood Urea Nitrogen 21 mg/dL (9-20); Calcium 8.9 mg/dL (8.4-10.2); Carbon Dioxide 27 mmol/L (22-30); Chloride 103 mmol/L (98-107); Creatine Kinase 105 U/L (55-170); Glucose 113 mg/dL (74-99); Magnesium 1.8 mg/dL (1.6-2.3); Potassium 4.6 mmol/L (3.5-5.1); Sodium 138 mmol/L (137-145); Total Protein 6.9 g/dL (6.3-8.2)
[2018-08-23 18:09] LABS: INR 1.1 (<1.2); Partial Thromboplastin Time 28.9 sec (22.0-30.0); Prothrombin Time 11.9 sec (9.0-12.0)
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
[2018-08-23] MEDS ORDERED: methylPREDNISolone SOD SUCCI 125 MG/2 ML VIAL IV STA (18:49)
[2018-08-23] MEDS ORDERED: HYDROmorphone 1 MG/ML 1 ML SYRINGE IVP STA (19:07)
[2018-08-23] MEDS ORDERED: PANTOPRAZOLE 40 MG/10 ML VIAL IVP STA (19:07)
[2018-08-23] MEDS ORDERED: ONDANSETRON 4 MG/2 ML VIAL IVP STA (19:07)
[2018-08-23] MEDS ORDERED: ONDANSETRON 4 MG/2 ML VIAL IVP PRN (19:07)
--- NOTE | 2018-08-23 19:30 | XR ---
EXAMINATION: XR chest 2V DATE AND TIME: 08/23/2018 6:21 PM CLINICAL INDICATION: PHH; difficulty breathing TECHNIQUE: Departmental protocol COMPARISON: 08/04/2018 FINDINGS: The lungs demonstrate a mild interstitial pattern consistent with mild interstitial phase pulmonary e rhoda. In addition, there is a developing whiteout of the right hemithorax, with moderate marked right pleur al effusion presently and complete atelectasis of the right middle lobe and right lower lobe. Concurr ent pneumonia cannot be excluded clinically. This pattern represents mild interval worsening in the l corina inflation pattern when compared to the prior study. No pneumothorax. No left pleural effusion. There is marked cardiac silhouette enlargement. No definite acute skeletal or soft tissue findings. IMPRESSION: Interval increase in the right pleural-parenchymal changes.
--- NOTE | 2018-08-23 19:32 | XR ---
EXAMINATION TYPE: XR soft tissue neck 2 views DATE OF EXAM: 08/23/2018 COMPARISON: NONE HISTORY: Painful swallowing TECHNIQUE: Soft tissue technique AP and lateral views FINDINGS: The epiglottis and aryepiglottic folds are well seen on the lateral view. The airway is not well visualized on the AP view. The bones and soft tissues are unremarkable as seen. No incidental findings. IMPRESSION: Negative examination.
[2018-08-23] MEDS: SODIUM CHLORIDE 0.9% 1,000 ML IV SCH (19:51)
[2018-08-23] MEDS: IPRATROPIUM-ALBUTEROL 3 ML NEB INHALATION PRN (19:56)
[2018-08-23] MEDS ORDERED: CYCLOBENZAPRINE 10 MG TAB PO PRN (22:03)
[2018-08-23] MEDS: METOPROLOL TARTRATE 25 MG TAB PO SCH (22:27)
[2018-08-23] MEDS: SPIRONOLACTONE 25 MG TAB PO SCH (22:30)
[2018-08-24] MEDS ORDERED: methylPREDNISolone SOD SUCCI 125 MG/2 ML VIAL IV SCH
[2018-08-24] MEDS: HYDROmorphone 1 MG/ML 1 ML SYRINGE IVP PRN ×6 (00:12→21:07)
[2018-08-24] MEDS: IPRATROPIUM-ALBUTEROL 3 ML NEB INHALATION PRN ×4 (02:43→20:04)
[2018-08-24] MEDS: SODIUM CHLORIDE 0.9% 1,000 ML IV SCH ×2 (04:53→20:51)
[2018-08-24] MEDS: SPIRONOLACTONE 25 MG TAB PO SCH ×2 (07:44→21:06)
[2018-08-24] MEDS: METOPROLOL TARTRATE 25 MG TAB PO SCH ×2 (07:44→21:06)
[2018-08-24] MEDS: FUROSEMIDE 40 MG TAB PO SCH (07:45)
[2018-08-24] MEDS ORDERED: PANTOPRAZOLE 40 MG/10 ML VIAL IVP SCH (09:00)
[2018-08-24] MEDS ORDERED: APIXABAN 5 MG TAB PO SCH (09:00)
[2018-08-24 09:25] VITALS: BMI 26.3
[2018-08-24] MEDS ORDERED: ACETAMINOPHEN TAB 325 MG TAB PO PRN (10:46)
[2018-08-24] MEDS ORDERED: NITROGLYCERIN SL TABS 0.4 MG TAB SUBLINGUAL PRN (10:47)
--- NOTE | 2018-08-24 11:06 | US ---
EXAMINATION TYPE: US chest DATE OF EXAM: 08/24/2018 COMPARISON: CXR CLINICAL HISTORY: right pleural effusion . Pleural effusion TECHNIQUE: Targeted ultrasound of the posterior lower bilateral hemithoraces EXAM MEASUREMENTS: Right Pleural Effusion pocket size: 10.6 cm Right skin surface to fluid distance: 3.7 cm Left Pleural Effusion pocket size: 0 cm Right side marked for possible thoracentesis outside the dept. Pulmonologists are able to review the images in the patient?s EMR. IMPRESSIONS: Right pleural effusion
--- NOTE | 2018-08-24 11:06 | US ---
EXAMINATION TYPE: US abdomen limited DATE OF EXAM: 08/24/2018 COMPARISON: US CLINICAL HISTORY: looking for ascitis . Ascites check Ascites within right flank IMPRESSION: Moderate amount of ascites
[2018-08-24] MEDS ORDERED: guaiFENesin SYRUP 100MG/5ML 200 MG/10 ML CUP PO PRN (11:19)
[2018-08-24] MEDS: predniSONE 20 MG TAB PO SCH (12:34)
[2018-08-24] MEDS ORDERED: traMADol 50 MG TAB PO PRN (19:35)
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
[2018-08-25] MEDS ORDERED: HYDROmorphone 1 MG/ML 1 ML SYRINGE IVP STA (00:34)
[2018-08-25] MEDS: predniSONE 20 MG TAB PO SCH (07:52)
[2018-08-25] MEDS: FUROSEMIDE 40 MG TAB PO SCH (07:53)
[2018-08-25] MEDS: SPIRONOLACTONE 25 MG TAB PO SCH ×2 (07:53→21:10)
[2018-08-25] MEDS: ASPIRIN 81 MG PO SCH (07:53)
[2018-08-25] MEDS: PANTOPRAZOLE 40 MG TABLET PO SCH (07:54)
[2018-08-25] MEDS: METOPROLOL TARTRATE 25 MG TAB PO SCH ×2 (07:54→21:10)
[2018-08-25] MEDS: IPRATROPIUM-ALBUTEROL 3 ML NEB INHALATION PRN ×4 (08:14→20:12)
[2018-08-25] MEDS ORDERED: HYDROmorphone 0.5 MG/0.5 ML SYRINGE IVP STA (08:54)
[2018-08-25] MEDS ORDERED: HEPARIN SODIUM,PORCINE 5,000 UNIT/ML 1 ML VIAL IV PRN (09:00)
[2018-08-25] MEDS: HYDROcodone/APAP 10-325MG 1 EACH TAB PO PRN ×4 (09:26→22:06)
[2018-08-25 09:38] LABS: Anisocytosis Slight; Basophils % (A) 0 %; Eosinophils % (A) 1 %; HCT 41.3 % (39.0-53.0); HGB 12.4 gm/dL (13.0-17.5); Hypochromasia Marked; Lymphocytes # (A) 0.5 k/uL (1.0-4.8); Lymphocytes % (A) 9 %; MCH 27.5 pg (25.0-35.0); MCHC 30.1 g/dL (31.0-37.0); MCV 91.4 fL (80.0-100.0); Monocytes # (A) 0.5 k/uL (0-1.0); Monocytes % (A) 8 %; Neutrophils # (A) 4.9 k/uL (1.3-7.7); Neutrophils % (A) 80 %; Platelet Count 219 k/uL (150-450); RBC 4.52 m/uL (4.30-5.90); RDW 17.6 % (11.5-15.5)
--- NOTE | 2018-08-25 09:38 | P.PN ---
Subjective This is a pleasant 63 years old male with past medical history of COPD, bilateral pleural effusion status post paracentesis, congestive heart failure with ejection fraction of 20%. Atrial fibrillation, hypertension, CVA/TIA, diabetes mellitus, DVT/PE, GERD, pulmonary hypertension, laryngeal cancer status post radiotherapy. Presents because of dyspnea and abdominal distention. Patient presents with worsening dyspnea over few days and cough with white phlegm over 2 weeks. Patient yesterday had left-sided chest and abdominal pain but is completely resolved today. Also patient missed his paracentesis last week for his cirrhosis and ascites. 2 days ago he noticed that he has worsening abdominal distention. He has regular bowel movements with no nausea or vomiting. Patient has hoarseness of voice, however he has history of laryngeal cancer. On admission his. Elevated tachycardic of 100-108, afebrile, or so Vitas looks stable he is saturating 97% on 2 L via NC. Labs reviewed showing unremarkable CBC and INR and BMP, Liver enzymes are not elevated. Bilirubin within normal limits. Troponin is negative and proBNP 3690. Lipase level is low EKG showing sinus tachycardia at 1 or 3 with incomplete right bundle branch block, no significant ST-T changes. He has negative soft tissue neck x-ray. Chest x-ray showing On admission he got 1 L of normal saline and 1 dose of Solu-Medrol 125 mg. However patient refused more steroids till he talks with the supervisor laboratory animal facility 08/25/2018 Patient is lying in bed comfortable, not in distress. He is complaining of from pain in his lower abdomen, stating that is been going on for 8 months related to his umbilical hernia and all the scar in his upper abdomen. No chest pain or dyspnea. His breathing quietly. He can talk freely with no problem. Patient was asking for Dilaudid and he says that each time he comes to the hospital his doctor give him Dilaudid. Explained to the patient the benefits and risks of these medication including the risk of . He stated that he takes Aurora 10- 325 mg every 4 hours, which is checked with [facility] today. He is given 180 tablets of Narco 10 last month. We going to restart Narco and explained to the patient's given him more medication will increase his risk of there were is not indicated. Patient also says that he has history of pulmonary embolism, (clots in my lung about 6 months ago). Eliquis is on hold for procedure tomorrow by interventional radiologist. We going to restart heparin drip today and rest of it before the procedure tomorrow, because without anticoagulation he'll be at-risk of recurrent urinary embolism and , atrial fibrillation complication and stroke. After explained the risks patient agrees to heparin drip. Patient also understand the risk of anticoagulation including the risk of bleeding, intracranial hemorrhage and/or and he verbalized understanding and acceptance to continue with the heparin and Eliquis thereafter. He was started patient on insulin sliding scale says is on prednisone. Continue with With antibiotics for COPD exacerbation Drug-seeking behavior CONSTITUTIONAL: No fever, no malaise, no fatigue. HEENT: No recent visual problems or hearing problems. Denied any sore throat. CARDIOVASCULAR: No orthopnea, PND, no palpitations, no syncope. PULMONARY: No shortness of breath, no cough, no hemoptysis. GASTROINTESTINAL: No diarrhea, no nausea, no vomiting, no abdominal pain. Normoactive bowel sounds. NEUROLOGICAL: No headaches, no weakness, no numbness. HEMATOLOGICAL: Denies any bleeding or petechiae. GENITOURINARY: Denies any burning micturition, frequency, or urgency. MUSCULOSKELETAL/RHEUMATOLOGICAL: Denies any joint pain, swelling, or any muscle pain. ENDOCRINE: Denies any polyuria or polydipsia. Medication: Tylenol 325 mg, albuterol 3 mm, aspirin 162 mg, ceftriaxone 1 mg, Flexeril 10 mg, Lasix 40 mg Robitussin 200 mg, heparin drip at 250 mm@9.4 mm per hour. Aurora 10-325 mg, Lopressor 25 mg, nitroglycerin 0.4 mg, Zofran 4 mg, Protonix 40 mg, prednisone 40 mg, spironolactone 50 mg. Objective - Vital Signs Vital signs: Vital Signs Temp 97.3 F L 08/25/18 05:00 Pulse 104 H 08/25/18 08:34 Resp 16 08/25/18 05:00 BP 115/72 08/25/18 05:00 Pulse Ox 98 08/25/18 08:15 Intake & Output 08/24/18 08/25/18 08/25/18 18:59 06:59 18:59 Intake Total 1290 Balance 1290 Weight 78.6 kg 79 kg Intake: Intake, IV Titration 50 Amount cefTRIAXone 1 gm In 50 Sodium Chloride 0.9% 50 ml @ 100 mls/hr IVPB Q24HR [facility] Rx#:[id number] Oral 1240 Other: Voiding Method Urinal Toilet # Voids 2 2 - Exam GENERAL: The patient is alert and oriented x3, not in any acute distress. Well developed, well nourished. HEENT: Pupils are round and equally reacting to light. EOMI. No scleral icterus. No conjunctival pallor. Normocephalic, atraumatic. No pharyngeal erythema. No thyromegaly. CARDIOVASCULAR: S1 and S2 present. No murmurs, rubs, or gallops. -PULMONARY: Chest is clear to auscultation, bilateral scattered wheezing, decreased breath sounds on the right side. -ABDOMEN: Soft, nontender, distended, normoactive bowel sounds. No palpable organomegaly. Old Vertical scar in the middle abdomen, healed wound MUSCULOSKELETAL: No joint swelling or deformity. EXTREMITIES: No cyanosis, clubbing, or pedal edema. NEUROLOGICAL: Gross neurological examination did not reveal any focal deficits. SKIN: No rashes. - Labs CBC & Chem 7: 08/23/18 17:48 08/23/18 17:48 Assessment and Plan Assessment: Acute COPD exacerbation Right pleural effusion Ascites History of congestive heart failure, ejection fraction less than 20% History of liver cirrhosis History of ascites and bilateral pleural effusion, status post thoracentesis History of atrial fibrillation on Eliquis History of DVT/PE History of CVA/TIA Essential hypertension Pulmonary hypertension History of laryngeal cancer status post radiotherapy Plan: This is a pleasant 61 years old male who presents with right-sided pleural effusion and abdominal distension. ordered ultrasound of the thorax and abdomen. Call intervention radiology consult for thoracocentasis and paracentasis, however because pt is on Eliquis , it has to be helf for two days, possible procedure will be done on wednesday. Continue with a breathing treatment, oxygen, i discussed the risks and benefits of steroids and he agrees to prednisone now while keep monitoring , his vitals and labs including terrell gomez Pain management , we will try to avoid narcotics for his liver disease Labs and medication were reviewed.. Continue same treatment. Continue with symptomatic treatment. Resume home medication. Monitor lytes and vitals. DVT and GI prophylaxis. Further recommendations of the clinical course of the patient DVT prophylaxis: eliquis ( on hold ) GI Prophylaxis: Ppi PT/OT: Pending Prognosis is guarded
[2018-08-25 09:46] LABS: INR 1.3 (<1.2); Partial Thromboplastin Time 28.4 sec (22.0-30.0); Prothrombin Time 12.9 sec (9.0-12.0)
[2018-08-25] MEDS: HEPARIN SOD,PORK IN 0.45% NACL 25,000 UNIT in 0.45% NACL 1 250ML.BAG IV SCH (09:47)
[2018-08-25 09:48] LABS: ALT 17 U/L (21-72); AST 38 U/L (17-59); African American GFR (CKD) >90 (>60 ml/min/1.73 sqM); Albumin 3.7 g/dL (3.5-5.0); Alkaline Phosphatase 406 U/L (38-126); Anion Gap 7 mmol/L; Bilirubin, Delta 0.8 mg/dL (0.0-0.2); Bilirubin,Unconjugated 0.7 mg/dL (0.0-1.1); Blood Urea Nitrogen 22 mg/dL (9-20); Calcium 9.2 mg/dL (8.4-10.2); Carbon Dioxide 30 mmol/L (22-30); Chloride 101 mmol/L (98-107); Glucose 127 mg/dL (74-99); Potassium 5.2 mmol/L (3.5-5.1); Sodium 138 mmol/L (137-145); Total Bilirubin 1.5 mg/dL (0.2-1.3); Total Protein 7.2 g/dL (6.3-8.2)
[2018-08-25 11:23] LABS: Glucose,Whole Blood 140 mg/dL (75-99)
[2018-08-25] MEDS: INSULIN ASPART (NovoLOG) 100 UNIT/ML VIAL SQ SCH ×3 (13:26→21:08)
--- NOTE | 2018-08-25 15:00 | CDI ---
Documentation Clarification Form Date: 08/25/2018 2:50:10 PM From: Danitza Diaz CCS, CCDS Admit Date: 08/25/2018 10:49:00 AM Patient Name: Silvino Monet Visit Number: [id number] Discharge Date: ATTENTION: The Clinical Documentation Specialists (CDI) and [facility] Coding Staff appreciate your assistance in clarifying documentation. Please respond to the clarification below the line at the bottom and electronically sign. The CDI & [facility] Coding staff will review the response and follow-up if needed. Please note: Queries are made part of the Legal Health Record. If you have any questions, please contact the author of this message via ITS. Dr. Yanez Sheet: Per the History & Physical: "This is a pleasant 63 year old male with past medical history of COPD, bilateral pleural effusions status post thoracentesis, cirrhosis and congestive heart failure with ejection fraction of 20%." History/Risk Factors: COPD, CHF, CVA with LUE weakness, Liver cirrhosis with ascites stataus post paracentesis, CAD status post TN with coronary stents & is a current smoker. Clinical Indicators: Presented with worsening dyspnea, cough & phlegm & abdominal pain. VS: P 119^, R 18, PO 97 RA BNP: 3690 Echocardiogram Results: Previous ECHO noted: EF 20-25% & severe ischemic cardiomyopathy. Chest X Ray: Moderate right pleural effusion, complete atelectasis of the RML & RLL, concurrent pneumonia not excluded, mild interstitial phase pulmonary edema. Treatment: IV fluid bolus, INH Albuterol, IV Dilaudid, IV Zofran, IV Protonix, IV Solumedrol ordered, pt refused. po Prednisone. O2 2Lnc prn. po Lasix. In your professional opinion, can you please clarify the type of CHF if known? Systolic Heart Failure: Acute Chronic Acute on Chronic Unable to Determine Other, please specify (Last Revision: June 2017) acute Systolic Heart Failure MTDD
[2018-08-25 17:20] LABS: Glucose,Whole Blood 138 mg/dL (75-99)
[2018-08-25 20:58] LABS: Glucose,Whole Blood 136 mg/dL (75-99)
[2018-08-26 04:20] LABS: Anisocytosis Slight; Basophils % (A) 0 %; Eosinophils # (A) 0.1 k/uL (0-0.7); Eosinophils % (A) 1 %; HCT 39.9 % (39.0-53.0); HGB 12.1 gm/dL (13.0-17.5); Hypochromasia Slight; Lymphocytes # (A) 0.5 k/uL (1.0-4.8); Lymphocytes % (A) 7 %; MCH 27.4 pg (25.0-35.0); MCHC 30.2 g/dL (31.0-37.0); MCV 90.7 fL (80.0-100.0); Mean Platelet Volume 7.4; Monocytes # (A) 0.5 k/uL (0-1.0); Monocytes % (A) 7 %; Neutrophils # (A) 5.8 k/uL (1.3-7.7); Neutrophils % (A) 81 %; Platelet Count 230 k/uL (150-450); RDW 17.6 % (11.5-15.5); WBC 7.2 k/uL (3.8-10.6)
[2018-08-26] MEDS: IPRATROPIUM-ALBUTEROL 3 ML NEB INHALATION PRN ×3 (06:45→15:16)
[2018-08-26 07:23] LABS: Glucose,Whole Blood 123 mg/dL (75-99)
[2018-08-26] MEDS: predniSONE 20 MG TAB PO SCH (07:51)
[2018-08-26] MEDS: HYDROcodone/APAP 10-325MG 1 EACH TAB PO PRN ×2 (07:51→14:17)
[2018-08-26] MEDS: METOPROLOL TARTRATE 25 MG TAB PO SCH (07:51)
[2018-08-26] MEDS: PANTOPRAZOLE 40 MG TABLET PO SCH (07:51)
[2018-08-26] MEDS: INSULIN ASPART (NovoLOG) 100 UNIT/ML VIAL SQ SCH ×3 (10:35→17:23)
--- NOTE | 2018-08-26 10:50 | P.PCN ---
Date of Procedure: 08/26/18 Preoperative Diagnosis: ascites and right pleural effusion Postoperative Diagnosis: same Procedure(s) Performed: paracentesis and thoracentesis Anesthesia: other (local) Estimated Blood Loss (ml): 10 Pathology: none sent Condition: stable Disposition: no change Indications for Procedure: ascites and pleural effusion Operative Findings: 1.5 liter effusion, several liters ascites Description of Procedure: no complication, chest xray pending
[2018-08-26 11:16] LABS: Glucose,Whole Blood 113 mg/dL (75-99)
--- NOTE | 2018-08-26 11:46 | XR ---
EXAMINATION TYPE: XR chest 1V DATE OF EXAM: 08/26/2018 COMPARISON: Prior chest x-ray 08/23/2018 HISTORY: Status post right thoracentesis TECHNIQUE: Single frontal view of the chest is obtained. FINDINGS: There is been interval improved aeration at the right lung base. No pneumothorax. Heart si ze remains enlarged. IMPRESSION: No evident complication status post right-sided thoracentesis.
[2018-08-26 12:04] VITALS: BP 121/81; RESP 18; TEMP 97.5
[2018-08-26] MEDS: HEPARIN SOD,PORK IN 0.45% NACL 25,000 UNIT in 0.45% NACL 1 250ML.BAG IV SCH (12:40)
--- NOTE | 2018-08-26 13:01 | US ---
EXAMINATION TYPE: US thoracentesis DATE OF EXAM: 08/26/2018 COMPARISON: NONE HISTORY: Pleural effusion. FINDINGS: Maximal barrier technique was utilized. The skin overlying a suitable pocket of fluid was localized and the overlying skin prepped and draped. Lidocaine was used for local anesthesia. Ultras ound was used with sterile technique. A 5 [place] catheter over guide needle was advanced into the pl eural fluid collection using ultrasound guidance and the catheter advanced, needle removed. Approxim ately 1.5 liter(s) of serous fluid was removed. Catheter was withdrawn and hemostasis achieved. The re is no immediate complication. The patient discharged in stable condition without complication. IMPRESSION: STATUS POST ULTRASOUND GUIDED THORACENTESIS, POST PROCEDURE CHEST X-RAY PENDING. THIS PA OCEDURE WAS PERFORMED BY THE UNDERSIGNED.
--- NOTE | 2018-08-26 13:01 | US ---
EXAMINATION TYPE: US paracentesis abd w/image DATE OF EXAM: 08/26/2018 COMPARISON: NONE HISTORY: Ascites. PROCEDURE: Maximal barrier technique was utilized. The skin overlying a suitable pocket of fluid was localized with ultrasound and the overlying skin was prepped and draped. Ultrasound was utilized with sterile technique. Lidocaine was used for local anesthesia and a skin gilbert made with a scalpel. Catheter was advanced under direct ultrasound guidance into a suitable pocket of fluid and approximately 2.2 liter s of serous fluid were removed. Catheter was withdrawn and hemostasis achieved. There is no immedia te complication; the patient is discharged in stable condition. IMPRESSION: STATUS POST ULTRASOUND GUIDED PARACENTESIS FOR PALLIATION OF ASCITES. THIS PROCEDURE WA S PERFORMED BY THE UNDERSIGNED.
[2018-08-26] MEDS: SPIRONOLACTONE 25 MG TAB PO SCH (13:56)
[2018-08-26] MEDS: ASPIRIN 81 MG PO SCH (13:56)
[2018-08-26] MEDS: FUROSEMIDE 40 MG TAB PO SCH (13:57)
[2018-08-26 15:30] VITALS: PULSE 104
[2018-08-26 17:10] LABS: Glucose,Whole Blood 116 mg/dL (75-99)
[2018-08-26] MEDS ORDERED: APIXABAN 5 MG TAB PO SCH (21:00)
== END 2018-08-26 17:59 | disposition home or self-care (01) | DRG 190 ==
LOC: EC 16:54 → 3NMEDONC 18:49 → OBSVTOIN 08-25 10:49
PROVIDERS: ADMIT Family Medicine; ATTEND Family Medicine
PROC: 0W9B3ZZ Drainage of Left Pleural Cavity, Percutaneous Approach (ICD-10-PCS; principal; 2018-08-26)
PROC: 0W9G3ZZ Drainage of Peritoneal Cavity, Percutaneous Approach (ICD-10-PCS; 2018-08-26)
DX: J44.1 Chronic obstructive pulmonary disease with (acute) exacerbation (principal); I50.21 Acute systolic (congestive) heart failure; T82.855A Stenosis of coronary artery stent, initial encounter; J90 Pleural effusion, not elsewhere classified; R18.8 Other ascites; Z85.21 Personal history of malignant neoplasm of larynx; Z92.3 Personal history of irradiation; F17.210 Nicotine dependence, cigarettes, uncomplicated; F32.9 Major depressive disorder, single episode, unspecified; F41.9 Anxiety disorder, unspecified; I69.334 Monoplegia of upper limb following cerebral infarction affecting left non-dominant side; I11.0 Hypertensive heart disease with heart failure; I25.10 Atherosclerotic heart disease of native coronary artery without angina pectoris; I25.2 Old myocardial infarction; I27.20 Pulmonary hypertension, unspecified; I45.10 Unspecified right bundle-branch block; I48.91 Unspecified atrial fibrillation; K21.9 Gastro-esophageal reflux disease without esophagitis; K74.60 Unspecified cirrhosis of liver; Z76.5 Malingerer [conscious simulation]; Z79.01 Long term (current) use of anticoagulants; Z79.82 Long term (current) use of aspirin; Z79.899 Other long term (current) drug therapy; Z82.49 Family history of ischemic heart disease and other diseases of the circulatory system; Z83.3 Family history of diabetes mellitus; Z86.711 Personal history of pulmonary embolism; Z86.718 Personal history of other venous thrombosis and embolism; E11.51 Type 2 diabetes mellitus with diabetic peripheral angiopathy without gangrene; K57.90 Diverticulosis of intestine, part unspecified, without perforation or abscess without bleeding; G56.03 Carpal tunnel syndrome, bilateral upper limbs; Z88.5 Allergy status to narcotic agent; Z88.8 Allergy status to other drugs, medicaments and biological substances; R13.10 Dysphagia, unspecified
CPT/HCPCS: 32555; 36415; 49083; 70360; 71045; 71046; 76604; 76705; 80048; 80053; 80076; 82550; 83690; 83735; 83880; 84132; 84484; 85025; 85610; 85730; 93005; 94640; 94760; 96361; 96374; 96375; 99285

== ENCOUNTER 2018-08-31 15:49 | Inpatient (IN) | payer OTHER ==
[2018-08-31] MEDS ORDERED: IPRATROPIUM-ALBUTEROL 3 ML NEB INHALATION STA (16:18)
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
[2018-08-31 16:59] LABS: ALT 23 U/L (21-72); AST 30 U/L (17-59); African American GFR (CKD) >90 (>60 ml/min/1.73 sqM); Albumin 3.9 g/dL (3.5-5.0); Alkaline Phosphatase 297 U/L (38-126); Anion Gap 9 mmol/L; Blood Urea Nitrogen 22 mg/dL (9-20); Calcium 9.3 mg/dL (8.4-10.2); Carbon Dioxide 25 mmol/L (22-30); Chloride 104 mmol/L (98-107); Glucose 97 mg/dL (74-99); Potassium 4.7 mmol/L (3.5-5.1); Sodium 138 mmol/L (137-145); Total Bilirubin 1.1 mg/dL (0.2-1.3); Total Protein 7.3 g/dL (6.3-8.2)
[2018-08-31 17:01] LABS: Anisocytosis Slight; Basophils # (A) 0.1 k/uL (0-0.2); Basophils % (A) 1 %; Eosinophils # (A) 0.5 k/uL (0-0.7); Eosinophils % (A) 7 %; HCT 41.7 % (39.0-53.0); HGB 12.5 gm/dL (13.0-17.5); Hypochromasia Moderate; Lymphocytes # (A) 0.6 k/uL (1.0-4.8); Lymphocytes % (A) 8 %; MCH 27.4 pg (25.0-35.0); MCHC 30.1 g/dL (31.0-37.0); Mean Platelet Volume 7.5; Monocytes # (A) 0.6 k/uL (0-1.0); Monocytes % (A) 8 %; Neutrophils % (A) 74 %; Platelet Count 231 k/uL (150-450); RBC 4.58 m/uL (4.30-5.90); RDW 17.8 % (11.5-15.5); WBC 6.8 k/uL (3.8-10.6)
--- NOTE | 2018-08-31 17:05 | XR ---
EXAMINATION TYPE: XR chest 2V DATE OF EXAM: 08/31/2018 COMPARISON: 08/26/2018 HISTORY: Thoracentesis TECHNIQUE: Frontal and lateral views of the chest are obtained. FINDINGS: The heart is enlarged. There is a moderate size right pleural effusion. There is no pneumo thorax. There are chest leads. Left lung is of consolidation. There is no definite heart failure. The re is mild pulmonary congestion. Bony thorax appears intact. IMPRESSION: Large right pleural effusion with infiltrate and atelectasis right lower lobe not signif icantly different than last exam. Moderate cardiomegaly.
[2018-08-31 17:07] LABS: Partial Thromboplastin Time 27.2 sec (22.0-30.0); Prothrombin Time 11.1 sec (9.0-12.0)
[2018-08-31 17:27] LABS: Appearance,Urine Clear (Clear); Bilirubin,Urine Negative (Negative); Blood,Urine Negative (Negative); Color,Urine Yellow; Glucose,Urine (UA) Negative (Negative); Ketones,Urine Negative (Negative); Leukocyte Esterase,Urine Negative (Negative); Nitrite,Urine Negative (Negative); PH, Urine 6.5 (5.0-8.0); Protein,Urine Trace (Negative); Specific Gravity,Urine 1.025 (1.001-1.035)
[2018-08-31] MEDS ORDERED: PIPERACILLIN-TAZOBACTAM 3.375 GM in SODIUM CHLORIDE 0.9% 100 ML IVPB STA (18:03)
[2018-08-31] MEDS ORDERED: MORPHINE SULFATE 2 MG/ML SYRINGE IVP STA (18:44)
[2018-08-31] MEDS ORDERED: ONDANSETRON 4 MG/2 ML VIAL IVP STA (18:45)
[2018-08-31] MEDS: IPRATROPIUM-ALBUTEROL 3 ML NEB INHALATION SCH (20:56)
[2018-08-31] MEDS: HYDROcodone/APAP 10-325MG 1 EACH TAB PO PRN (22:14)
[2018-08-31] MEDS ORDERED: NITROGLYCERIN SL TABS 0.4 MG TAB SUBLINGUAL PRN (23:18)
[2018-09-01] MEDS: methylPREDNISolone SOD SUCCI 125 MG/2 ML VIAL IV SCH ×5 (00:04→23:57)
[2018-09-01 01:09] VITALS: BMI 26.7
[2018-09-01] MEDS: HYDROmorphone 0.5 MG/0.5 ML SYRINGE IVP PRN ×4 (01:21→20:08)
[2018-09-01] MEDS: ALBUTEROL NEBULIZED 2.5 MG/3 ML INHALATION PRN (03:53)
[2018-09-01] MEDS: PIPERACILLIN-TAZOBACTAM 3.375 GM in SODIUM CHLORIDE 0.9% 100 ML IVPB SCH ×3 (05:10→19:59)
[2018-09-01] MEDS: HYDROcodone/APAP 10-325MG 1 EACH TAB PO PRN (05:52)
[2018-09-01] MEDS ORDERED: IPRATROPIUM-ALBUTEROL 3 ML NEB INHALATION SCH (08:00)
[2018-09-01] MEDS ORDERED: NON-FORMULARY DRUG (Ipratropium/Albuterol Sulfate [Combivent Respimat Inhaler] 2 PUFF) INHALATION SCH (08:00)
[2018-09-01] MEDS: METOPROLOL TARTRATE 25 MG TAB PO SCH ×3 (08:18→19:59)
[2018-09-01] MEDS: ASPIRIN 81 MG PO SCH (08:18)
[2018-09-01] MEDS: CYCLOBENZAPRINE 10 MG TAB PO SCH ×3 (08:18→19:59)
[2018-09-01] MEDS: SPIRONOLACTONE 25 MG TAB PO SCH ×3 (08:18→19:59)
[2018-09-01] MEDS: FUROSEMIDE 40 MG TAB PO SCH (08:19)
[2018-09-01] MEDS: APIXABAN 5 MG TAB PO SCH ×3 (08:19→19:59)
[2018-09-01] MEDS: ISOSORBIDE MONONITRATE ER 30 MG TAB.ER.24H PO SCH (08:19)
[2018-09-01] MEDS: PANTOPRAZOLE 40 MG TABLET PO SCH (08:23)
[2018-09-01] MEDS: IPRATROPIUM-ALBUTEROL 3 ML NEB INHALATION SCH ×4 (09:23→19:22)
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
--- NOTE | 2018-09-01 13:40 | US ---
EXAMINATION TYPE: US chest DATE OF EXAM: 09/01/2018 COMPARISON: NONE CLINICAL HISTORY: Markings for thoracentesis by pulmonary staff. Pleural effusion TECHNIQUE: Targeted ultrasound of the posterior lower bilateral hemithoraces EXAM MEASUREMENTS: Right Pleural Effusion pocket size: 12.0 cm Right skin surface to fluid distance: 2.0 cm Left Pleural Effusion pocket size: 1.5 cm Left skin surface to fluid distance: 2.3 cm Right side MARKED for possible thoracentesis outside the dept. Left side NOT MARKED for possible thoracentesis outside the dept. Pulmonologists are able to review the images in the patient?s EMR. IMPRESSIONS: Large right pleural effusion, small left pleural effusion
--- NOTE | 2018-09-01 14:55 | XR ---
EXAMINATION TYPE: XR chest 1V portable DATE OF EXAM: 09/01/2018 COMPARISON: Prior chest x-ray 08/31/2018 HISTORY: Status post right thoracentesis TECHNIQUE: Single frontal view of the chest is obtained. FINDINGS: There is no pneumothorax. Improved aeration is present at the right lung base. IMPRESSION: No evident complication status post right thoracentesis.
--- NOTE | 2018-09-01 14:56 | US ---
EXAMINATION TYPE: US abdomen limited DATE OF EXAM: 09/01/2018 COMPARISON: NONE CLINICAL HISTORY: ascites evaluation. Ascites check. Abdominal ascites seen with largest pocket in RLQ. IMPRESSION: Mild to moderate ascites
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
[2018-09-01 16:38] LABS: Appearance,BF Cloudy; Nucleated Cells, Body Fluid 33 /uL; RBC, Body Fluid 8620 /uL
[2018-09-01 16:40] LABS: Mononuclear WBC,Body Fluid 81 %; Polynuclear WBC,Body Fluid 19 %; Total Cells Counted,Body Fluid 100
[2018-09-01 21:24] LABS: Total Protein, Body Fluid 2900 mg/dL
--- NOTE | 2018-09-01 22:08 | PCN ---
PROCEDURE NOTE PROCEDURE PERFORMED: Right-sided thoracentesis. PREOPERATIVE DIAGNOSIS: Right pleural effusion. POSTOPERATIVE DIAGNOSIS: Right sided pleural effusion. ANESTHESIA USED: 2 mL of 1% lidocaine. PROCEDURE DETAILS: The patient was placed in a sitting upright position, the area below the right scapula was prepared in a sterile fashion and drapes were applied. The area was earlier localized by ultrasound guidance. At any rate, the location at the 8th intercostal space and tip of the scapula was locally anesthetized with lidocaine. Then, a 26-gauge needle was inserted at the same site, advanced into the pleural space until the fluid was localized again with the needle. Then a small tiny skin incision was made, and a standard thoracentesis catheter and needle were used to advance into the same site, advanced into the pleural space. The fluid was obtained and then the catheter was advanced out of the needle, and the needle was pulled out of the pleural space. Freely flowing fluid was removed, roughly 1400 mL of dark yellow fluid was removed from the right pleural space. The procedure was well tolerated. No evidence of any immediate complications. Chest x-ray showed no evidence of complication and no pneumothorax with excellent aeration of the right lung base. Fluid was sent for different diagnostic studies. MMODL / IJN: [id number] /
[2018-09-02] MEDS: HYDROmorphone 0.5 MG/0.5 ML SYRINGE IVP PRN ×4 (01:53→18:10)
[2018-09-02] MEDS: PIPERACILLIN-TAZOBACTAM 3.375 GM in SODIUM CHLORIDE 0.9% 100 ML IVPB SCH ×3 (04:00→20:02)
[2018-09-02] MEDS: methylPREDNISolone SOD SUCCI 125 MG/2 ML VIAL IV SCH ×3 (04:01→16:28)
[2018-09-02] MEDS: HYDROcodone/APAP 10-325MG 1 EACH TAB PO PRN ×4 (04:15→20:03)
[2018-09-02] MEDS: IPRATROPIUM-ALBUTEROL 3 ML NEB INHALATION SCH ×4 (06:25→19:45)
[2018-09-02] MEDS: SPIRONOLACTONE 25 MG TAB PO SCH ×2 (07:50→20:03)
[2018-09-02] MEDS: FUROSEMIDE 40 MG TAB PO SCH (07:51)
[2018-09-02] MEDS: ISOSORBIDE MONONITRATE ER 30 MG TAB.ER.24H PO SCH (07:51)
[2018-09-02] MEDS: CYCLOBENZAPRINE 10 MG TAB PO SCH ×2 (07:51→20:03)
[2018-09-02] MEDS: METOPROLOL TARTRATE 25 MG TAB PO SCH ×2 (07:51→20:03)
[2018-09-02] MEDS: PANTOPRAZOLE 40 MG TABLET PO SCH (07:51)
[2018-09-02] MEDS: ASPIRIN 81 MG PO SCH (10:17)
[2018-09-02] MEDS: APIXABAN 5 MG TAB PO SCH ×2 (10:17→20:03)
[2018-09-02] MEDS ORDERED: TEMAZEPAM 15 MG CAP PO PRN (12:37)
[2018-09-02] MEDS ORDERED: ALPRAZolam 0.25 MG TAB PO PRN (12:37)
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
--- NOTE | 2018-09-02 13:38 | PN ---
PROGRESS NOTE I am covering for Dr. Escobar. DATE OF SERVICE: 09/02/2018 HISTORY OF PRESENT ILLNESS: This 63-year-old gentleman with a past medical history of multiple medical problems including history of CAD, history of CHF, COPD, CVA, diabetes mellitus, DVT, history of myocardial infarction, pulmonary embolism, being followed by Dr. Escobar in the outpatient setting was admitted with fever and as well as some abdominal pain, shortness of breath. The patient also had ejection fraction 20% to 25%. The patient NT proBNP is not available, but however the patient was found to have significant pleural effusion on the right and Dr. Garcia aspirated about 1400 mL of brownish fluid at this time. The patient also had a purulent mucopurulent sputum also. Patient on broad spectrum IV antibiotics. PAST MEDICAL HISTORY: Reviewed. REVIEW OF SYSTEMS: CARDIOVASCULAR SYSTEM: No angina or palpitations. RESPIRATORY SYSTEM: As mentioned earlier. GI: As mentioned earlier. : No dysuria. NERVOUS SYSTEM: No numbness or weakness. CURRENT MEDICATIONS: Current medications are reviewed and include: 1. [place] 10 mg q.4 p.r.n. 2. Ventolin 2 puffs q.6 p.r.n. 3. DuoNeb q.i.d. and p.r.n. 4. Xanax 0.25 t.i.d. 5. Eliquis 5 mg p.o. b.i.d. 6. Aspirin 162 mg p.o. daily. 7. Flexeril 10 mg b.i.d. p.r.n. 8. Lasix 40 mg p.o. daily. 9. Dilaudid 0.5 mg q.4 p.r.n. 10.Imdur 30 mg p.o. daily. 11.Solu-Medrol 60 IV q.6. 12.Lopressor 25 mg p.o. b.i.d. 13.Protonix 40 mg p.o. daily. 14.Zosyn 3.375 IV q.8. 15.Aldactone 50 mg p.o. b.i.d. 16.Restoril 15 mg q.h.s. p.r.n. PHYSICAL EXAM: Patient is alert and oriented x3. Pulse is 67. The blood pressure 113/79, respiration 18, temperature 97 degrees, pulse ox 94% on room air. HEENT: Conjunctivae normal. Oral mucosa moist. NECK: No jugular venous distention. No carotid bruit. No lymph node enlargement. CARDIOVASCULAR: S1, S2 muffled. No S3, no S4. RESPIRATORY: Breath sounds diminished at the bases. Bilateral scattered rhonchi and crackles. Expiratory wheezing also present. ABDOMEN: Distended, ascites present. LEGS: No edema, no swelling. NERVOUS SYSTEM: Higher function as mentioned earlier. Moves all 4 limbs. No focal motor or sensory deficits. LYMPHATICS: No lymphadenopathy of the neck, axillae or groin. SKIN: No ulcer, rash or bleeding. JOINTS: No active deforming arthropathy. LABS: WBC 6.8, hemoglobin 12.5, creatinine is 0.55. ASSESSMENT: 1. Shortness of breath possibly chronic obstructive pulmonary disease acute exacerbation with acute purulent tracheobronchitis. 2. Right pleural effusion, status post thoracocentesis of 1400 mL. 3. Abdominal ascites with pocket in the right lower quadrant. 4. Congestive heart failure with chronic systolic dysfunction, ejection fraction 20% to 25% with cardiomyopathy. 5. Bilateral atelectasis. 6. Possible bibasilar pneumonia, possible gram-negative. 7. History of laryngeal cancer with radiation. 8. History of atrial fibrillation. 9. History of congestive heart failure. 10.History of chronic obstructive pulmonary disease. 11.History of cerebrovascular accident, transient ischemic attack. 12.Diabetes mellitus type 2. 13.History of deep vein thrombosis. 14.Gastroesophageal reflux disease. 15.History of myocardial infarction. 16.History of chronic liver disease. 17.History of pulmonary embolism. 18.History of Clostridium difficile. 19.History of MDRO. 20.History of coronary artery disease, stent. 21.History of anxiety, depression. RECOMMENDATIONS AND DISCUSSION: This 63-year-old gentleman who presented with multiple complex medical issues, will monitor the patient closely. Continue the current medications. Continues symptomatic treatment. Otherwise at this time I recommend continue with bronchodilators, empiric antibiotics. Will await fluid reports. I would also recommend a BNP also. Continue to monitor. Guarded prognosis. Further recommendations to follow. See orders for details. Will follow closely with Dr. Garcia. Prognosis guarded. MMODL / IJN: [id number] /
[2018-09-02 14:47] LABS: Glucose,Whole Blood 146 mg/dL (75-99)
[2018-09-02] MEDS ORDERED: ONDANSETRON 4 MG/2 ML VIAL IVP STA (15:27)
[2018-09-02] MEDS ORDERED: ONDANSETRON 4 MG/2 ML VIAL IVP PRN (15:42)
[2018-09-02] MEDS: predniSONE 20 MG TAB PO SCH (20:03)
[2018-09-03] MEDS: HYDROmorphone 0.5 MG/0.5 ML SYRINGE IVP PRN ×5 (00:19→19:45)
[2018-09-03] MEDS: PIPERACILLIN-TAZOBACTAM 3.375 GM in SODIUM CHLORIDE 0.9% 100 ML IVPB SCH ×3 (04:33→19:46)
[2018-09-03] MEDS: ALBUTEROL NEBULIZED 2.5 MG/3 ML INHALATION PRN (04:38)
[2018-09-03 08:13] LABS: Anisocytosis Slight; Basophils % (A) 0 %; Eosinophils % (A) 0 %; HCT 40.1 % (39.0-53.0); Hypochromasia Slight; Lymphocytes # (A) 0.3 k/uL (1.0-4.8); Lymphocytes % (A) 4 %; MCH 27.1 pg (25.0-35.0); MCHC 29.9 g/dL (31.0-37.0); MCV 90.7 fL (80.0-100.0); Mean Platelet Volume 7.6; Monocytes # (A) 0.2 k/uL (0-1.0); Monocytes % (A) 2 %; Neutrophils # (A) 6.7 k/uL (1.3-7.7); Neutrophils % (A) 93 %; Platelet Count 210 k/uL (150-450); RBC 4.42 m/uL (4.30-5.90); RDW 17.4 % (11.5-15.5); WBC 7.2 k/uL (3.8-10.6)
[2018-09-03 08:31] LABS: African American GFR (CKD) >90 (>60 ml/min/1.73 sqM); Anion Gap 11 mmol/L; Blood Urea Nitrogen 27 mg/dL (9-20); Calcium 8.6 mg/dL (8.4-10.2); Carbon Dioxide 23 mmol/L (22-30); Chloride 100 mmol/L (98-107); Glucose 162 mg/dL (74-99); Potassium 4.9 mmol/L (3.5-5.1); Sodium 134 mmol/L (137-145)
[2018-09-03] MEDS: IPRATROPIUM-ALBUTEROL 3 ML NEB INHALATION SCH ×4 (08:42→20:12)
[2018-09-03] MEDS: ASPIRIN 81 MG PO SCH (09:22)
[2018-09-03] MEDS: APIXABAN 5 MG TAB PO SCH ×2 (09:22→19:47)
[2018-09-03] MEDS: METOPROLOL TARTRATE 25 MG TAB PO SCH ×2 (09:22→19:46)
[2018-09-03] MEDS: FUROSEMIDE 40 MG TAB PO SCH (09:22)
[2018-09-03] MEDS: ISOSORBIDE MONONITRATE ER 30 MG TAB.ER.24H PO SCH (09:22)
[2018-09-03] MEDS: CYCLOBENZAPRINE 10 MG TAB PO SCH ×2 (09:22→19:47)
[2018-09-03] MEDS: SPIRONOLACTONE 25 MG TAB PO SCH ×2 (09:22→19:46)
[2018-09-03] MEDS: predniSONE 20 MG TAB PO SCH (09:22)
[2018-09-03] MEDS: PANTOPRAZOLE 40 MG TABLET PO SCH (09:22)
--- NOTE | 2018-09-03 15:24 | PN ---
PROGRESS NOTE DATE OF SERVICE: 09/03/2018 This 63-year-old gentleman who was admitted with COPD exacerbation also had pleural effusion. The patient underwent thoracocentesis by Dr. Garcia. The patient is complaining of shortness of breath intermittently. No chest pain. No palpitations. No fever. EXAM: Alert and oriented times three. Pulse is 64. Blood pressure 132/81, respirations 16, temperature 97.2, pulse ox 98% on room air. HEENT: Conjunctivae normal. NECK: No jugular venous distention. CARDIOVASCULAR: Breath sounds diminished at the bases. A few scattered rhonchi and crackles. ABDOMEN is soft, nontender. LEGS: No edema. No swelling. CENTRAL NERVOUS SYSTEM: No focal deficits. LABS: WBC 7.2, hemoglobin is 12, sodium 134. ASSESSMENT: 1. Shortness of breath possibly chronic obstructive pulmonary disease exacerbation with acute purulent tracheobronchitis. 2. Right pleural effusion status post thoracocentesis of 1400 mL. 3. Abdominal ascites with pockets in the right lower quadrant. 4. Congestive heart failure, acute exacerbation, acute on chronic systolic dysfunction, ejection fraction 20 to 25% with cardiomyopathy. 5. Bilateral atelectasis. 6. Possible bibasilar pneumonia possibly gram-negative. 7. History of laryngeal cancer with radiation. 8. History of atrial fibrillation. 9. History of congestive heart failure. 10.History of chronic obstructive pulmonary disease. 11.History of cerebrovascular accident. 12.Diabetes mellitus type 2. 13.History of deep vein thrombosis. 14.History of gastroesophageal reflux disease. 15.History of myocardial infarction. 16.History of chronic liver disease. 17.History of pulmonary embolism. 18.History of C difficile colitis. 20.History of coronary artery disease, stent. 21.History of anxiety, depression. RECOMMENDATIONS AND DISCUSSION: Continue current medications, continue with monitoring, symptomatic treatment. Bronchodilators, continue steroids, continue the antibiotics. Closely follow with Dr. Garcia. Prognosis guarded because of multiple complex medical issues. Further recommendations to follow. MMODL / IJN: [id number] / MTDD
[2018-09-04] MEDS: HYDROmorphone 0.5 MG/0.5 ML SYRINGE IVP PRN ×5 (00:02→19:12)
[2018-09-04] MEDS: ALBUTEROL NEBULIZED 2.5 MG/3 ML INHALATION PRN (00:27)
[2018-09-04] MEDS: PIPERACILLIN-TAZOBACTAM 3.375 GM in SODIUM CHLORIDE 0.9% 100 ML IVPB SCH ×3 (03:39→19:59)
[2018-09-04] MEDS: PANTOPRAZOLE 40 MG TABLET PO SCH (08:12)
[2018-09-04] MEDS: CYCLOBENZAPRINE 10 MG TAB PO SCH ×2 (08:12→20:00)
[2018-09-04] MEDS: predniSONE 20 MG TAB PO SCH (08:12)
[2018-09-04] MEDS: APIXABAN 5 MG TAB PO SCH ×2 (08:12→20:00)
[2018-09-04] MEDS: FUROSEMIDE 40 MG TAB PO SCH (08:12)
[2018-09-04] MEDS: SPIRONOLACTONE 25 MG TAB PO SCH ×2 (08:12→20:00)
[2018-09-04] MEDS: ISOSORBIDE MONONITRATE ER 30 MG TAB.ER.24H PO SCH (08:12)
[2018-09-04] MEDS: ASPIRIN 81 MG PO SCH (08:12)
[2018-09-04] MEDS: METOPROLOL TARTRATE 25 MG TAB PO SCH ×2 (08:12→20:00)
[2018-09-04] MEDS: HYDROcodone/APAP 10-325MG 1 EACH TAB PO PRN (08:19)
[2018-09-04] MEDS: IPRATROPIUM-ALBUTEROL 3 ML NEB INHALATION SCH ×4 (08:20→20:56)
[2018-09-04] MEDS: SYMBICORT 160-4.5 MCG INHALER INHALATION SCH ×2 (12:31→20:56)
--- NOTE | 2018-09-04 19:22 | PN ---
PROGRESS NOTE DATE OF SERVICE: 09/04/2018 I am covering for Dr. Escobar. This 63-year-old gentleman who was admitted with COPD exacerbation is closely monitored. Patient improving significantly. Dr. Garcia is following the patient closely. No chest pain. No palpitations. No fever. The patient reporting fluctuating shortness of breath from day to day. PHYSICAL EXAM: Alert and oriented x3. Pulse 66, blood pressure 126/63, respiration 18, temperature 98.7, pulse ox 98% on 2 L. HEENT: Conjunctivae normal. Oral mucosa moist. NECK is no jugular venous distention. No carotid bruit. No lymph node enlargement. CARDIOVASCULAR: S1, S2 muffled. RESPIRATIONS: Breath sounds diminished in the bases. A few scattered rhonchi and crackles. Expiratory wheezing also present. Breath sounds diminished bilaterally. ABDOMEN: Soft, nontender. NERVOUS SYSTEM: No focal deficits. LAB STUDIES: WBC 7.1, hemoglobin is 12, sodium 135. ASSESSMENT: 1. Shortness of breath with possible chronic obstructive pulmonary disease acute exacerbation with acute purulent tracheobronchitis. 2. Right pleural effusion status post thoracocentesis, 1400 mL. 3. Abdominal ascites with pockets in the right lower quadrant. 4. Congestive heart failure acute exacerbation with acute on chronic systolic dysfunction, ejection fraction 20 to 25%, cardiomyopathy. 5. Bilateral atelectasis. 6. Possible bibasilar pneumonia with possibly gram-negative present on admission. 7. History of laryngeal cancer with radiation. 8. History atrial fibrillation. 9. History of congestive heart failure. 10.History of chronic obstructive pulmonary disease. 11.History of cerebrovascular accident. 12.Diabetes mellitus type 2. 13.History of deep vein thrombosis. 14.History of gastroesophageal reflux disease. 15.History of myocardial infarction. 16.History of chronic liver disease. 17.History of pulmonary embolism. 18.History of C difficile colitis. 19.History of coronary artery disease/stent. 20.History of anxiety, depression. RECOMMENDATIONS AND DISCUSSION: Recommend to continue current medications, continue with monitoring, management and symptomatic treatment. Otherwise, at this time, I recommend continue with steroids. Continue with IV antibiotics. Patient is on IV Zosyn. I would also recommend add Symbicort and closely follow with Dr. Garcia. Further recommendations to follow. Dr. Escobar will follow. MMODL / IJN: [id number] /
[2018-09-05 00:27] VITALS: TEMP 97.5
[2018-09-05] MEDS: PIPERACILLIN-TAZOBACTAM 3.375 GM in SODIUM CHLORIDE 0.9% 100 ML IVPB SCH ×2 (03:57→11:33)
[2018-09-05 07:09] VITALS: BP 114/70; RESP 16
[2018-09-05] MEDS: IPRATROPIUM-ALBUTEROL 3 ML NEB INHALATION SCH (07:18)
[2018-09-05] MEDS: SYMBICORT 160-4.5 MCG INHALER INHALATION SCH (07:19)
[2018-09-05 07:22] VITALS: PULSE 76
[2018-09-05] MEDS: predniSONE 20 MG TAB PO SCH (09:00)
[2018-09-05] MEDS: METOPROLOL TARTRATE 25 MG TAB PO SCH (09:05)
[2018-09-05] MEDS: CYCLOBENZAPRINE 10 MG TAB PO SCH (09:05)
[2018-09-05] MEDS: APIXABAN 5 MG TAB PO SCH (09:06)
[2018-09-05] MEDS: ISOSORBIDE MONONITRATE ER 30 MG TAB.ER.24H PO SCH (09:06)
[2018-09-05] MEDS: PANTOPRAZOLE 40 MG TABLET PO SCH (09:06)
[2018-09-05] MEDS: FUROSEMIDE 40 MG TAB PO SCH ×2 (09:06→09:10)
[2018-09-05] MEDS: ASPIRIN 81 MG PO SCH ×2 (09:06→09:11)
[2018-09-05] MEDS: SPIRONOLACTONE 25 MG TAB PO SCH (09:08)
[2018-09-05] MEDS: HYDROcodone/APAP 10-325MG 1 EACH TAB PO PRN (09:08)
--- NOTE | 2018-09-05 11:49 | P.DS ---
Providers Date of admission: 08/31/18 18:25 Expected date of discharge: 09/05/18 Attending physician: Andrews Escobar Consults: 09/01/18 10:57 Consult Physician Urgent Consulting Provider: Tonie Garcia Consult Reason/Comments: pleural effusion fever Do you want consulting provider notified?: Yes Primary care physician: Andrews Escobar Hospital Course: 53-year-old male was sent over to the emergency room from family physician office with concerns about sepsis patient had a temperature of 101.4 patient has been evaluated by pulmonology had repeat thoracentesis. Patient up ambulating without complaint at this time stable for discharge Assessment COPD with acute exacerbation post thoracentesis from chronic pleural effusion Chronic persistent atrial fibrillation Chronic abdominal ascites with frequent paracentesis Diabetes type 2 History of coronary disease with stents Chronic congestive heart failure EF 20-25% systolic dysfunction Severe ischemic cardiomyopathy History of laryngeal cancer History of CVA History of pulmonary embolism and DVT Peripheral vascular disease Nicotine abuse Plan Home to follow-up with pulmonology and family physician Dr. Andrews Escobar Plan - Discharge Summary New Discharge Prescriptions: New Varenicline Tartrate [Chantix Starter Pack] 0.5 mg PO DIRECTED #53 tab Budesonide-Formot 160-4.5 Mcg [Symbicort 160-4.5 Mcg Inhaler] 2 puff INHALATION RT-BID #1 puff Continue Ipratropium-Albuterol Nebulize [Duoneb 0.5 mg-3 mg/3 ml Soln] 3 ml INHALATION RT-QID #120 ampul.neb Pantoprazole [Protonix] 40 mg PO AC-BRKFST #30 tablet. Albuterol Inhaler [Ventolin Hfa Inhaler] 2 puff INHALATION RT-Q4H PRN #1 puff PRN Reason: Shortness Of Breath Isosorbide Mononitrate ER [Imdur] 30 mg PO DAILY #30 tab.er.24h Nitroglycerin Sl Tabs [Nitrostat] 0.4 mg SUBLINGUAL Q5M PRN #100 tab PRN Reason: Chest Pain Ipratropium/Albuterol Sulfate [Combivent Respimat Inhaler] 2 puff INHALATION RT-QID Spironolactone [Aldactone] 50 mg PO BID #120 tab Aspirin [Adult Low Dose Aspirin EC] 162 mg PO DAILY Metoprolol Tartrate [Lopressor] 25 mg PO BID #60 tab Apixaban [Eliquis] 5 mg PO BID #180 tab Furosemide [Lasix] 40 mg PO DAILY #30 tab Cyclobenzaprine [Flexeril] 10 mg PO TID HYDROcodone/APAP 10-325MG [[place] 10-325] 1 tab PO Q4HR PRN PRN Reason: pain No Action predniSONE See Taper PO DIRECTED Discharge Medication List Albuterol Inhaler [Ventolin Hfa Inhaler] 2 puff INHALATION RT-Q4H PRN #1 puff 03/17/18 [Rx] Ipratropium-Albuterol Nebulize [Duoneb 0.5 mg-3 mg/3 ml Soln] 3 ml INHALATION RT-QID #120 ampul.neb 03/17/18 [Rx] Isosorbide Mononitrate ER [Imdur] 30 mg PO DAILY #30 tab.er.24h 03/17/18 [Rx] Nitroglycerin Sl Tabs [Nitrostat] 0.4 mg SUBLINGUAL Q5M PRN #100 tab 03/17/18 [Rx] Pantoprazole [Protonix] 40 mg PO AC-BRKFST #30 tablet.dr 03/17/18 [Rx] Ipratropium/Albuterol Sulfate [Combivent Respimat Inhaler] 2 puff INHALATION RT- QID 05/08/18 [History] Spironolactone [Aldactone] 50 mg PO BID #120 tab 05/11/18 [Rx] Aspirin [Adult Low Dose Aspirin EC] 162 mg PO DAILY 06/27/18 [History] Metoprolol Tartrate [Lopressor] 25 mg PO BID #60 tab 07/12/18 [Rx] Apixaban [Eliquis] 5 mg PO BID #180 tab 07/13/18 [Rx] Furosemide [Lasix] 40 mg PO DAILY #30 tab 08/05/18 [Rx] Cyclobenzaprine [Flexeril] 10 mg PO TID 08/23/18 [History] HYDROcodone/APAP 10-325MG [[place] 10-325] 1 tab PO Q4HR PRN 08/23/18 [History] predniSONE See Taper PO DIRECTED 08/31/18 [History] Budesonide-Formot 160-4.5 Mcg [Symbicort 160-4.5 Mcg Inhaler] 2 puff INHALATION RT-BID #1 puff 09/05/18 [Rx] Varenicline Tartrate [Chantix Starter Pack] 0.5 mg PO DIRECTED #53 tab 09/05/18 [Rx] Follow up Appointment(s)/Referral(s): Andrews Escobar MD [Primary Care Provider] - 1-2 days
== END 2018-09-05 12:20 | disposition home or self-care (01) | DRG 190 ==
LOC: EC 15:49 → 4MS4W 18:25
PROVIDERS: ADMIT Family Medicine; ATTEND Family Medicine
PROC: 0W993ZZ Drainage of Right Pleural Cavity, Percutaneous Approach (ICD-10-PCS; principal; 2018-09-01)
DX: J44.1 Chronic obstructive pulmonary disease with (acute) exacerbation (principal); J15.6 Pneumonia due to other Gram-negative bacteria; I50.23 Acute on chronic systolic (congestive) heart failure; J90 Pleural effusion, not elsewhere classified; J98.11 Atelectasis; R18.8 Other ascites; E11.51 Type 2 diabetes mellitus with diabetic peripheral angiopathy without gangrene; E78.5 Hyperlipidemia, unspecified; F17.200 Nicotine dependence, unspecified, uncomplicated; F32.9 Major depressive disorder, single episode, unspecified; F41.9 Anxiety disorder, unspecified; I11.0 Hypertensive heart disease with heart failure; I25.10 Atherosclerotic heart disease of native coronary artery without angina pectoris; I25.2 Old myocardial infarction; I25.5 Ischemic cardiomyopathy; I27.20 Pulmonary hypertension, unspecified; I48.2 Chronic atrial fibrillation; I49.3 Ventricular premature depolarization; K21.9 Gastro-esophageal reflux disease without esophagitis; K57.90 Diverticulosis of intestine, part unspecified, without perforation or abscess without bleeding; K76.9 Liver disease, unspecified; N42.9 Disorder of prostate, unspecified; R49.0 Dysphonia; R10.9 Unspecified abdominal pain; G89.29 Other chronic pain; G56.03 Carpal tunnel syndrome, bilateral upper limbs; Z79.01 Long term (current) use of anticoagulants; Z79.82 Long term (current) use of aspirin; Z79.899 Other long term (current) drug therapy; Z88.5 Allergy status to narcotic agent; Z88.8 Allergy status to other drugs, medicaments and biological substances; Z85.21 Personal history of malignant neoplasm of larynx; Z86.19 Personal history of other infectious and parasitic diseases; Z86.711 Personal history of pulmonary embolism; Z86.718 Personal history of other venous thrombosis and embolism; I69.934 Monoplegia of upper limb following unspecified cerebrovascular disease affecting left non-dominant side; Z95.5 Presence of coronary angioplasty implant and graft; Z87.440 Personal history of urinary (tract) infections; Z92.3 Personal history of irradiation; Z83.3 Family history of diabetes mellitus; Z82.49 Family history of ischemic heart disease and other diseases of the circulatory system
CPT/HCPCS: 36415; 71045; 71046; 76604; 76705; 80048; 80053; 81003; 83605; 83615; 83880; 84157; 85025; 85610; 85730; 87040; 87070; 87086; 87205; 89050; 93005; 94640; 94760; 96365; 96375; 99284

== ENCOUNTER 2018-09-19 15:18 | Inpatient (IN) | payer OTHER ==
[2018-09-19] MEDS ORDERED: SODIUM CHLORIDE 0.9% 1,000 ML IV STA ×2 (15:51)
[2018-09-19] MEDS ORDERED: IPRATROPIUM-ALBUTEROL 3 ML NEB INHALATION STA (15:51)
[2018-09-19] MEDS ORDERED: methylPREDNISolone SOD SUCCI 125 MG/2 ML VIAL IV STA (15:52)
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
[2018-09-19 16:38] LABS: Anisocytosis Slight; Basophils % (A) 1 %; Eosinophils # (A) 0.2 k/uL (0-0.7); Eosinophils % (A) 5 %; HCT 39.4 % (39.0-53.0); Hypochromasia Moderate; Lymphocytes # (A) 0.5 k/uL (1.0-4.8); Lymphocytes % (A) 10 %; MCH 27.9 pg (25.0-35.0); MCHC 30.4 g/dL (31.0-37.0); MCV 91.6 fL (80.0-100.0); Mean Platelet Volume 7.5; Monocytes # (A) 0.3 k/uL (0-1.0); Monocytes % (A) 6 %; Neutrophils # (A) 3.4 k/uL (1.3-7.7); Neutrophils % (A) 75 %; Platelet Count 237 k/uL (150-450); RDW 17.7 % (11.5-15.5); WBC 4.5 k/uL (3.8-10.6)
[2018-09-19 16:44] LABS: INR 1.2 (<1.2); Partial Thromboplastin Time 28.8 sec (22.0-30.0); Prothrombin Time 12.3 sec (9.0-12.0)
[2018-09-19 16:48] LABS: ALT 17 U/L (21-72); AST 37 U/L (17-59); African American GFR (CKD) >90 (>60 ml/min/1.73 sqM); Albumin 3.6 g/dL (3.5-5.0); Alkaline Phosphatase 296 U/L (38-126); Anion Gap 9 mmol/L; Blood Urea Nitrogen 21 mg/dL (9-20); Calcium 9.1 mg/dL (8.4-10.2); Carbon Dioxide 27 mmol/L (22-30); Chloride 102 mmol/L (98-107); Glucose 117 mg/dL (74-99); Magnesium 1.8 mg/dL (1.6-2.3); Sodium 138 mmol/L (137-145); Total Protein 6.9 g/dL (6.3-8.2)
[2018-09-19] MEDS ORDERED: DILTIAZEM DRIP BOLUS FROM BAG 1 MG SOLN IV ONE (17:06)
[2018-09-19] MEDS ORDERED: DILTIAZEM 125 MG in SODIUM CHLORIDE 0.9% 100 ML IV SCH (17:15)
[2018-09-19] MEDS ORDERED: HYDROcodone/APAP 10-325MG 1 EACH TAB PO ONE (17:30)
[2018-09-19] MEDS ORDERED: FUROSEMIDE 10 MG/ML 4 ML VIAL IV STA (17:41)
[2018-09-19] MEDS ORDERED: cefTRIAXone IN SWFI 1,000 MG/10 ML SYRINGE IVP STA (17:44)
--- NOTE | 2018-09-19 17:44 | XR ---
EXAMINATION TYPE: XR chest 2V DATE OF EXAM: 09/19/2018 COMPARISON: 09/01/2018 HISTORY: 63 year-old male shortness of breath, difficulty breathing TECHNIQUE: PA and lateral views FINDINGS: Right heart margin obscured by adjacent pleural parenchymal opacity. There is a moderate right-sided pleural effusion extending up to the mid chest level. Hyperinflation. Mild interstitial prominence. IMPRESSION: Increased now moderate right pleural effusion with adjacent atelectasis and/or consolidation. The eff usion reaches up to the mid chest level. Background of COPD and possible mild pulmonary vascular perry estion.
[2018-09-19] MEDS: IPRATROPIUM-ALBUTEROL 3 ML NEB INHALATION SCH (19:50)
[2018-09-19] MEDS ORDERED: NITROGLYCERIN SL TABS 0.4 MG TAB SUBLINGUAL PRN (21:04)
[2018-09-19] MEDS ORDERED: CYCLOBENZAPRINE 10 MG TAB PO PRN (21:04)
[2018-09-19] MEDS ORDERED: METOPROLOL TARTRATE 50 MG TAB PO STA (21:23)
[2018-09-19 21:43] VITALS: BMI 26.6
[2018-09-19] MEDS: FUROSEMIDE 10 MG/ML 4 ML VIAL IV SCH (21:45)
[2018-09-20] MEDS ORDERED: methylPREDNISolone SOD SUCCI 125 MG/2 ML VIAL IV SCH
[2018-09-20] MEDS: PANTOPRAZOLE 40 MG TABLET PO SCH (06:21)
[2018-09-20 06:36] LABS: African American GFR (CKD) >90 (>60 ml/min/1.73 sqM); Anion Gap 8 mmol/L; Blood Urea Nitrogen 21 mg/dL (9-20); Calcium 8.7 mg/dL (8.4-10.2); Carbon Dioxide 30 mmol/L (22-30); Chloride 101 mmol/L (98-107); Glucose 106 mg/dL (74-99); Potassium 4.2 mmol/L (3.5-5.1); Sodium 139 mmol/L (137-145)
[2018-09-20] MEDS: IPRATROPIUM-ALBUTEROL 3 ML NEB INHALATION SCH ×4 (08:02→20:24)
[2018-09-20] MEDS: SYMBICORT 160-4.5 MCG INHALER INHALATION SCH ×2 (08:02→20:24)
[2018-09-20] MEDS ORDERED: VARENICLINE 1 MG TAB PO SCH (08:45)
[2018-09-20] MEDS ORDERED: APIXABAN 5 MG TAB PO SCH (09:00)
[2018-09-20] MEDS ORDERED: METOPROLOL TARTRATE 25 MG TAB PO SCH (09:00)
[2018-09-20] MEDS ORDERED: ASPIRIN 81 MG PO SCH (09:00)
[2018-09-20] MEDS ORDERED: HEPARIN SODIUM,PORCINE 5,000 UNIT/ML 1 ML VIAL IV PRN (09:34)
[2018-09-20] MEDS: SPIRONOLACTONE 25 MG TAB PO SCH ×2 (09:39→21:38)
[2018-09-20] MEDS: METOPROLOL TARTRATE 50 MG TAB PO SCH ×2 (09:39→21:39)
[2018-09-20] MEDS: ISOSORBIDE MONONITRATE ER 30 MG TAB.ER.24H PO SCH (09:39)
[2018-09-20] MEDS: predniSONE 20 MG TAB PO SCH (09:40)
[2018-09-20] MEDS: FUROSEMIDE 10 MG/ML 4 ML VIAL IV SCH ×2 (09:40→21:39)
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
--- NOTE | 2018-09-20 10:30 | US ---
EXAMINATION TYPE: US chest DATE OF EXAM: 09/20/2018 COMPARISON: US, chest X Ray CLINICAL HISTORY: right pleural effusion. TECHNIQUE: Targeted ultrasound of the posterior lower bilateral chest. EXAM MEASUREMENTS: Right Pleural Effusion pocket size: 20.8 cm A/P Right skin surface to fluid distance: 4.1 cm A/P Left Pleural Effusion pocket size: no area was marked as very limited fluid was seen. Right side was marked for possible thoracentesis outside the dept. Pulmonologists are able to review the images in the patient?s EMR. IMPRESSIONS: 1. Right pleural effusion. 2. Tiny left pleural effusion
--- NOTE | 2018-09-20 10:32 | US ---
EXAMINATION TYPE: US abdomen limited DATE OF EXAM: 09/20/2018 COMPARISON: US CLINICAL HISTORY: ascites. Largest lower quadrant fluid pocket was seen in RLQ = 9.0cm A/P. IMPRESSION: Ascites
[2018-09-20] MEDS: HEPARIN SOD,PORK IN 0.45% NACL 25,000 UNIT in 0.45% NACL 1 250ML.BAG IV SCH (11:44)
--- NOTE | 2018-09-20 11:56 | ECHOF ---
Referral Reason:sob MEASUREMENTS -------- HEIGHT: 170.2 cm WEIGHT: 79.4 kg BP: RVIDd: 4.9 cm (< 3.3) IVSd: 1.3 cm (0.6 - 1.1) LVIDd: 5.3 cm (3.9 - 5.3) LVPWd: 1.3 cm (0.6 - 1.1) IVSs: 1.3 cm LVIDs: 4.9 cm LVPWs: 1.5 cm LAESV Index (A-L): 32.16 ml/m Ao Diam: 3.1 cm (2.0 - 3.7) AV Cusp: 1.8 cm (1.5 - 2.6) LA Diam: 4.5 cm (2.7 - 3.8) MV EXCURSION: 19.544 mm (> 18.000) MV EF SLOPE: 73 mm/s (70 - 150) EPSS: 1.6 cm MV E Rodger: 0.62 m/s MV DecT: 311 ms MV A Rodger: 0.29 m/s MV E/A Ratio: 2.17 RAP: 5.00 mmHg RVSP: 39.31 mmHg FINDINGS -------- Atrial fibrillation. This was a technically adequate study. There is mild concentric left ventricular hypertrophy. Overall left ventricular systolic function i s severely impaired with, an EF between 25 - 30 %. There is paradoxical/dysynergic septal motion co nsistent with right ventricular volume overload and/or elevated right ventricular end-diastolic press ure. Basal inferoseptal LV wall motion is hypokinetic. Mid inferoseptal LV wall motion is hypoki netic. Mid to basal inferiorlateral is hypokinetic The right ventricle is severely enlarged. LA is midly dilated 29-33ml/m2. The right atrium is mildly enlarged. Aneurysmal Interatrial septum. Aortic valve is trileaflet and is mildly thickened. The mitral valve leaflets are mildly thickened. Mild mitral annular calcification present. Modera te mitral regurgitation is present. Severe tricuspid regurgitation present. The right ventricular systolic pressure, as measured by Dop pler, is 39.31mmHg. CONCLUSIONS -------- 1. Atrial fibrillation. 2. This was a technically adequate study. 3. There is paradoxical/dysynergic septal motion consistent with right ventricular volume overload an d/or elevated right ventricular end-diastolic pressure. 4. Basal inferoseptal LV wall motion is hypokinetic. 5. Mid inferoseptal LV wall motion is hypokinetic. 6. Mid to basal inferiorlateral is hypokinetic 7. The right ventricle is severely enlarged. 8. LA is midly dilated 29-33ml/m2. 9. The right atrium is mildly enlarged. 10. Aneurysmal Interatrial septum. 11. Aortic valve is trileaflet and is mildly thickened. 12. The mitral valve leaflets are mildly thickened. 13. Mild mitral annular calcification present. 14. Moderate mitral regurgitation is present. 15. Severe tricuspid regurgitation present. 16. The right ventricular systolic pressure, as measured by Doppler, is 39.31mmHg. FIELD SERVICE ENGINEER: Olya Mejia RDCS
[2018-09-20 12:11] LABS: INR 1.2 (<1.2); Partial Thromboplastin Time 28.1 sec (22.0-30.0); Prothrombin Time 12.5 sec (9.0-12.0)
[2018-09-20 12:19] LABS: Anisocytosis Slight; Basophils % (A) 1 %; Eosinophils # (A) 0.2 k/uL (0-0.7); Eosinophils % (A) 3 %; HCT 41.2 % (39.0-53.0); HGB 12.2 gm/dL (13.0-17.5); Hypochromasia Marked; Lymphocytes # (A) 0.5 k/uL (1.0-4.8); Lymphocytes % (A) 9 %; MCH 27.6 pg (25.0-35.0); MCHC 29.8 g/dL (31.0-37.0); MCV 92.7 fL (80.0-100.0); Mean Platelet Volume 7.2; Monocytes # (A) 0.4 k/uL (0-1.0); Monocytes % (A) 7 %; Neutrophils # (A) 4.2 k/uL (1.3-7.7); Neutrophils % (A) 77 %; Platelet Count 256 k/uL (150-450); RBC 4.44 m/uL (4.30-5.90); RDW 17.5 % (11.5-15.5); WBC 5.4 k/uL (3.8-10.6)
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
[2018-09-20] MEDS: HYDROcodone/APAP 10-325MG 1 EACH TAB PO PRN (20:08)
[2018-09-21 02:37] LABS: Anisocytosis Slight; Basophils % (A) 0 %; Eosinophils % (A) 1 %; HCT 38.9 % (39.0-53.0); HGB 11.5 gm/dL (13.0-17.5); Hypochromasia Marked; Lymphocytes # (A) 0.4 k/uL (1.0-4.8); Lymphocytes % (A) 8 %; MCH 27.4 pg (25.0-35.0); MCHC 29.7 g/dL (31.0-37.0); MCV 92.3 fL (80.0-100.0); Mean Platelet Volume 7.2; Monocytes # (A) 0.4 k/uL (0-1.0); Monocytes % (A) 8 %; Neutrophils # (A) 4.5 k/uL (1.3-7.7); Neutrophils % (A) 81 %; Platelet Count 212 k/uL (150-450); RBC 4.21 m/uL (4.30-5.90); RDW 17.7 % (11.5-15.5); WBC 5.5 k/uL (3.8-10.6)
[2018-09-21 02:43] LABS: African American GFR (CKD) >90 (>60 ml/min/1.73 sqM); Anion Gap 11 mmol/L; Blood Urea Nitrogen 28 mg/dL (9-20); Carbon Dioxide 27 mmol/L (22-30); Chloride 99 mmol/L (98-107); Glucose 129 mg/dL (74-99); Potassium 4.5 mmol/L (3.5-5.1); Sodium 137 mmol/L (137-145)
[2018-09-21 02:52] LABS: INR 1.3 (<1.2); Prothrombin Time 13.2 sec (9.0-12.0)
[2018-09-21] MEDS ORDERED: IPRATROPIUM-ALBUTEROL 3 ML NEB INHALATION PRN (04:44)
[2018-09-21] MEDS: PANTOPRAZOLE 40 MG TABLET PO SCH (06:05)
[2018-09-21] MEDS: predniSONE 20 MG TAB PO SCH (08:36)
[2018-09-21] MEDS: METOPROLOL TARTRATE 50 MG TAB PO SCH ×2 (08:37→21:01)
[2018-09-21] MEDS: SPIRONOLACTONE 25 MG TAB PO SCH ×2 (08:37→21:01)
[2018-09-21] MEDS: ISOSORBIDE MONONITRATE ER 30 MG TAB.ER.24H PO SCH (08:37)
[2018-09-21] MEDS: FUROSEMIDE 10 MG/ML 4 ML VIAL IV SCH ×3 (08:37→23:38)
[2018-09-21] MEDS: HEPARIN SOD,PORK IN 0.45% NACL 25,000 UNIT in 0.45% NACL 1 250ML.BAG IV SCH (08:38)
[2018-09-21] MEDS ORDERED: LACTULOSE 20 GM/30 ML CUP PO PRN (08:38)
[2018-09-21] MEDS: IPRATROPIUM-ALBUTEROL 3 ML NEB INHALATION SCH ×4 (09:36→19:43)
[2018-09-21] MEDS: SYMBICORT 160-4.5 MCG INHALER INHALATION SCH ×2 (09:36→19:43)
--- NOTE | 2018-09-21 11:07 | P.PN ---
Subjective Progress Note Date: 09/21/18 Principal diagnosis: Recurrent right-sided pleural effusion This is a 63-year-old male patient of Dr. Andrews Escobar, with history of chronic systolic/diastolic congestive heart failure, recurrent right-sided pleural effusion with multiple previous thoracentesis. Patient has chronic ascites, and required frequent paracentesis. Patient has a history of severe cardiomyopathy with a baseline ejection fraction of 20-25%, chronic atrial fibrillation, hypertension, diabetes mellitus, very artery disease with previous stent placement, history of laryngeal cancer status post radiation, COPD and he does not wear oxygen at baseline. Patient has been requiring hospitalizations every month for complications related to CHF with recurrence of right pleural effusion, requiring thoracentesis and paracentesis. Most recently underwent right-sided thoracentesis by Dr. Mir on 09/01/2018 removal of 1400 mL of dark yellow pleural fluid, patient underwent paracentesis on 08/26/2018 with removal of 1.5 L of ascitic fluid. Previous paracentesis and thoracentesis cytologies were negative for any malignancy. Patient came into the hospital on 09/20/2018 complaints of not being able to breathe and having some left-sided chest pain. He continues to smoke, occasional cough with production of some phlegm. No fever or chills. Chest x-ray showed moderately sized right pleural effusion with adjacent atelectasis and/or consolidation, the background of COPD and possible mild pulmonary vascular congestion. EKG admission showed A. fib RVR with a rate of 127. Patient is on chronic anticoagulation in the form of Eliquis. Was hypoxic with a pulse ox of 88 on 2 L on admission, currently satting 99% on 3 L, started on Cardizem drip for rate control, empiric antibiotics and IV Lasix, and she is feeling better on today's exam, breathiing easier. Were asked to see the patient for possibility of right-sided thoracentesis On 09/21/2018 patient seen in follow-up on selective care unit. he is sitting up unaided to bend, he states he is more dyspneic today. He is scheduled for ri ght-sided thoracentesis by interventional radiology sometime today, with the paracentesis scheduled for tomorrow. Lung sounds reveal diminished breath sounds over right lower lobe, he is on 3 L of oxygen with a pulse ox of 97%, he is afebrile, he continues on IV Lasix, at 40 mg every 12 hours, still has quite a bit of lower extremity edema, his weight is actually trending up, to 81.5 kilos up from 77.1 kg on admission. Labs reviewed, showing white blood cell count of 5.5, hemoglobin of 11.5, INR is 1.3, electrodes are within normal limits, BUN of 28 and creatinine of 0.71. Ammonia level was 72, patient is on lactulose, Objective - Vital Signs Vital signs: Vital Signs Temp 98.4 F 09/21/18 08:00 Pulse 64 09/21/18 09:51 Resp 16 09/21/18 08:00 BP 112/61 09/21/18 08:00 Pulse Ox 97 09/21/18 08:00 Intake & Output 09/20/18 09/21/18 09/21/18 18:59 06:59 18:59 Intake Total 702 382.035 180 Output Total 600 800 300 Balance 102 -417.965 -120 Weight 81.5 kg Intake: Intake, IV Titration 182.035 Amount Heparin Sod,Pork in 0.45% 182.035 NaCl 25,000 unit In 0.45 % NaCl 1 250ml.bag @ 12 UNITS/KG/HR 9.564 mls/hr IV .Q[facility]H [facility] Rx#: [id number] Oral 702 200 180 Output: Urine 600 800 300 Other: Voiding Method Urinal Urinal # Voids 1 - Exam GENERAL EXAM: Alert, 63-year-old white male, irritable, currently on 3 L of oxygen comfortable in no apparent distress. HEAD: Normocephalic/atraumatic. EYES: Normal reaction of pupils, equal size. Conjunctiva pink, sclera white. NOSE: Clear with pink turbinates. THROAT: No erythema or exudates. NECK: No masses, no JVD, no thyroid enlargement, no adenopathy. CHEST: No chest wall deformity. Symmetrical expansion. LUNGS: Equal air entry with diminished breath sounds with dullness to percussion over right mid and lower lung CVS: Regular rate and rhythm, normal S1 and S2, no gallops, no murmurs, no rubs ABDOMEN: Soft, nontender, tense, there is abdominal hernia. No hepatosplenomegaly, normal bowel sounds, no guarding or rigidity. EXTREMITIES: No clubbing, plus lower extremity edema, no cyanosis, 2+ pulses and upper and lower extremities. MUSCULOSKELETAL: Muscle strength and tone normal. SPINE: No scoliosis or deformity SKIN: No rashes CENTRAL NERVOUS SYSTEM: Alert and oriented -3. No focal deficits, tone is n ormal in all 4 extremities. PSYCHIATRIC: Alert and oriented -3. Appropriate affect. Intact judgment and insight. - Labs CBC & Chem 7: 09/21/18 02:13 09/21/18 02:13 Labs: Abnormal Lab Results - Last 24 Hours (Table) 09/20/18 09/20/18 09/20/18 Range/Units 11:34 11:34 17:42 RBC (4.30-5.90) m/uL Hgb 12.2 L (13.0-17.5) gm/dL Hct (39.0-53.0) % MCHC 29.8 L (31.0-37.0) g/dL RDW 17.5 H (11.5-15.5) % Lymphocytes # 0.5 L (1.0-4.8) k/uL PT 12.5 H (9.0-12.0) sec INR 1.2 H (<1.2) APTT (22.0-30.0) sec BUN (9-20) mg/dL Glucose (74-99) mg/dL Ammonia 72 H (<30) umol/L 09/21/18 09/21/18 09/21/18 Range/Units 02:08 02:13 02:13 RBC 4.21 L (4.30-5.90) m/uL Hgb 11.5 L (13.0-17.5) gm/dL Hct 38.9 L (39.0-53.0) % MCHC 29.7 L (31.0-37.0) g/dL RDW 17.7 H (11.5-15.5) % Lymphocytes # 0.4 L (1.0-4.8) k/uL PT 13.2 H (9.0-12.0) sec INR 1.3 H (<1.2) APTT 40.9 H (22.0-30.0) sec BUN (9-20) mg/dL Glucose (74-99) mg/dL Ammonia (<30) umol/L 09/21/18 Range/Units 02:13 RBC (4.30-5.90) m/uL Hgb (13.0-17.5) gm/dL Hct (39.0-53.0) % MCHC (31.0-37.0) g/dL RDW (11.5-15.5) % Lymphocytes # (1.0-4.8) k/uL PT (9.0-12.0) sec INR (<1.2) APTT (22.0-30.0) sec BUN 28 H (9-20) mg/dL Glucose 129 H (74-99) mg/dL Ammonia (<30) umol/L Microbiology - Last 24 Hours (Table) 09/19/18 16:15 Blood Culture - Preliminary Blood No Growth after 24 hours Assessment and Plan Plan: Assessment: #1. Recurrent right-sided pleural effusion with history of multiple right-sided thoracentesis would last one on 09/01/2018 with removal of 1400 mL of pleural fluid. Patient also had paracentesis on 08/26/2018 with the removal of 1.5 L of ascitic fluid #2. Left-sided abdominal or chest wall pain, may be chronic in nature. #3. Acute on chronic congestive heart failure with systolic and diastolic dysfunction and severe refractory ascites requiring frequent paracentesis with underlying ejection fraction of 20-25% #4. Chronic lower extremity edema #5. Recurrent ascites #6. History of laryngeal cancer treated with radiation #7. Hypertension, hyperlipidemia #8. Diabetes mellitus #9. History of coronary artery disease with previous history of stenting #10. Chronic and ongoing history of smoking #11. COPD Plan: We'll increase the Lasix to 40 mg every 8 hours, patient is scheduled for right- sided thoracentesis by interventional radiology today, and paracentesis tomorrow, no cytology, cultures or pleural fluid analysis is needed. Continue with breathing treatments, daily electrolytes and renal profile. I performed a history & physical examination of the patient and discussed their management with my nurse practitioner, Vika Aceves. I reviewed the nurse practitioner's note and agree with the documented findings and plan of care. Lung sounds are positive for diminished breath sounds throughout the lung figueroa. The findings and the impression was discussed with the patient. I attest to the documentation by the nurse practitioner. Time with Patient: Less than 30
--- NOTE | 2018-09-21 13:23 | XR ---
EXAMINATION TYPE: XR chest 1V portable DATE OF EXAM: 09/21/2018 COMPARISON: 03/17/2018 HISTORY: right thora TECHNIQUE: Single frontal view of the chest is obtained. FINDINGS: Right heart margin obscured by adjacent pleural parenchymal opacity. There is a moderate r ight-sided pleural effusion extending up to the mid chest level. Hyperinflation. Mild interstitial pr ominence. No pneumothorax. Heart is enlarged and there is suggestion of mild central venous congestio n. Arthropathy of the shoulders. . IMPRESSION: Bilateral consolidation and pleural effusion which is reduced on the right compared to t he prior exam post thoracentesis. No pneumothorax.
--- NOTE | 2018-09-21 13:34 | US ---
Ultrasound-guided therapeutic thoracentesis DATE OF EXAM: 09/21/2018 CLINICAL HISTORY: Right pleural effusion The procedure was discussed with the patient. The risks, complications, benefits, and alternatives we re discussed and any questions were answered. Informed consent was obtained. The patient was placed supine on the ultrasound table and prepped and draped in the usual sterile fas hion. All elements of maximal barrier and sterile technique were utilized. Under ultrasound guidance, access into the pleural space was obtained, via the thoracentesis catheter system and direct ultrasound guidance. Ap proximately 1.5 liters of serous fluid was removed. The patient was stable throughout the procedure and remained stable upon discharge from Department of Radiology. IMPRESSION: 1. Successful therapeutic thoracentesis under ultrasound guidance.
[2018-09-21] MEDS: HYDROcodone/APAP 10-325MG 1 EACH TAB PO PRN ×2 (14:41→21:01)
--- NOTE | 2018-09-21 14:45 | P.PN ---
Subjective Progress Note Date: 09/21/18 This is a 63-year-old gentleman very well known to our practice, he has a known history of ischemic cardio myopathy with prior myocardial infarctions with stent placements, recurrent ascites with recurrent paracentesis, recurrent pleural effusions with prior thoracentesis, most recent thoracentesis was performed on September 01. Patient also has history of diabetes, hypertension, hyperlipidemia, prior pulmonary embolism, chronic persistent atrial fibrillation, nicotine dependence, COPD, cirrhosis, history of DVT. He presents to the hospital again on this occasion with symptoms of shortness of breath. Chest x-ray was performed which revealed increased now moderate right- sided pleural effusion with adjacent atelectasis and or consolidation. The effusion reaches up to the mid chest level. Background of COPD and possible mild pulmonary vascular congestion noted. EKG on presentation here showed atrial fibrillation with a rapid ventricular response. Blood pressure 94/50 with a heart rate in the 70s, 99% on 3 L of oxygen. White blood cell count is normal, hemoglobin 12.0, platelet count 237. Sodium 139, potassium 4.2, BUN 21 and creatinine 0.7. AST 37 ALT 17 alk phos 296 troponin 0.023 BNP 4370. At the time of my examination this morning, patient is sitting up at the bedside, still feels quite short of breath, civil drafting technician has just arrived in the room preparing to do an ultrasound of the chest. Patient's most recent echocardiogram with Doppler study was performed in May of this year which revealed an ejection fraction of less than 20% moderate to severe mitral regu rgitation noted. 09/21/2018 Patient was seen and examined this morning, he is scheduled today to undergo thoracentesis and possible paracentesis by interventional radiology. 110/60 with a heart rate in the 70s, 100% on room air. White blood cell count 5.5, hemoglobin 11.5, platelet count 212. Sodium 137, potassium 4.5, BUN 28 and creatinine 0.7. Objective - Vital Signs Vital signs: Vital Signs Temp 97.4 F L 09/21/18 12:39 Pulse 70 09/21/18 13:10 Resp 16 09/21/18 13:10 BP 111/65 09/21/18 13:10 Pulse Ox 100 09/21/18 13:10 Intake & Output 09/20/18 09/21/18 09/21/18 18:59 06:59 18:59 Intake Total 702 382.035 180 Output Total 600 800 300 Balance 102 -417.965 -120 Weight 81.5 kg Intake: Intake, IV Titration 182.035 Amount Heparin Sod,Pork in 0.45% 182.035 NaCl 25,000 unit In 0.45 % NaCl 1 250ml.bag @ 12 UNITS/KG/HR 9.564 mls/hr IV .Q24H [facility] Rx#: [id number] Oral 702 200 180 Output: Urine 600 800 300 Other: Voiding Method Urinal Urinal Urinal # Voids 1 - Exam PHYSICAL EXAMINATION: GENERAL: 63-year-old gentleman in no acute distress at the time of my examination HEENT: Head is atraumatic, normocephalic. Pupils equal, round. Sclera anict mike. Conjunctiva are clear. Mucous membranes of the mouth are moist. Neck is supple. There is elevated jugular venous pressure. No carotid bruit is heard. HEART EXAMINATION: Heart S1 and S2 irregularly irregular a systolic murmur is heard CHEST EXAMINATION: Lungs reveal diminished air entry to the right mcc to three quarters of the lung ABDOMEN: Firm, distended, nontender. Bowel sounds are heard. No organomegaly noted. EXTREMITIES: 1+ peripheral pulses with no evidence of peripheral edema and no calf tenderness noted. NEUROLOGIC patient is awake, alert and oriented 3. - Labs CBC & Chem 7: 09/21/18 02:13 09/21/18 02:13 Labs: Abnormal Lab Results - Last 24 Hours (Table) 09/20/18 09/21/18 09/21/18 Range/Units 17:42 02:08 02:13 RBC 4.21 L (4.30-5.90) m/uL Hgb 11.5 L (13.0-17.5) gm/dL Hct 38.9 L (39.0-53.0) % MCHC 29.7 L (31.0-37.0) g/dL RDW 17.7 H (11.5-15.5) % Lymphocytes # 0.4 L (1.0-4.8) k/uL PT (9.0-12.0) sec INR (<1.2) APTT 40.9 H (22.0-30.0) sec BUN (9-20) mg/dL Glucose (74-99) mg/dL Ammonia 72 H (<30) umol/L 09/21/18 09/21/18 Range/Units 02:13 02:13 RBC (4.30-5.90) m/uL Hgb (13.0-17.5) gm/dL Hct (39.0-53.0) % MCHC (31.0-37.0) g/dL RDW (11.5-15.5) % Lymphocytes # (1.0-4.8) k/uL PT 13.2 H (9.0-12.0) sec INR 1.3 H (<1.2) APTT (22.0-30.0) sec BUN 28 H (9-20) mg/dL Glucose 129 H (74-99) mg/dL Ammonia (<30) umol/L Microbiology - Last 24 Hours (Table) 09/19/18 16:15 Blood Culture - Preliminary Blood No Growth after 24 hours Assessment and Plan Plan: Assessment and plan #1 symptoms of shortness of breath, likely secondary to right-sided pleural effusion and mild exacerbation of congestive cardiac failure, systolic acute on chronic #2 history of ascites with recurrent paracentesis #3 history of pleural effusions with prior thoracentesis #4 COPD #5 nicotine dependence #6 coronary artery disease history with prior myocardial infarctions and stent placements #7 ischemic cardiomyopathy with documented ejection fraction of less than 20% #8 alcoholic cirrhosis #9 history of PE and DVT #10 diabetes #11 prior CVA #12 hyperlipidemia Plan Cardiology's perspective, we would recommend to continue the patient on his current medications. We will follow him along with you now on an as-needed basis only, please don't hesitate to call with any questions. DNP note has been reviewed, I agree with a documented findings and plan of care. Patient was seen and examined.
--- NOTE | 2018-09-21 22:26 | P.PN ---
Subjective Progress Note Date: 09/21/18 Principal diagnosis: This is a 63 year old male that was admitted to the hospital for shortness of breath with recurrent pleural effusions. Patient also has ascites. Patient is scheduled to go down for a thoracentesis this afternoon and a paracentesis for tomorrow sometime. Will continue to follow the patient closely. Patient denies any chest pain or palpitations at this time, but states that he is currently short of breath as he always is and not improving. Patient is sitting in bed in no acute distress as he had a long conversation about how he feels that his pain isn't being managed properly and that he wants something for his chronic pain. Patient is afebrile. Objective - Vital Signs Vital signs: Vital Signs Temp 97.5 F L 09/21/18 20:54 Pulse 76 09/21/18 20:54 Resp 16 09/21/18 20:54 BP 120/67 09/21/18 20:54 Pulse Ox 96 09/21/18 20:54 Intake & Output 09/21/18 09/21/18 09/22/18 06:59 18:59 06:59 Intake Total 382.035 420 Output Total 800 300 400 Balance -417.965 120 -400 Weight 81.5 kg Intake: Intake, IV Titration 182.035 Amount Heparin Sod,Pork in 0.45% 182.035 NaCl 25,000 unit In 0.45 % NaCl 1 250ml.bag @ 12 UNITS/KG/HR 9.564 mls/hr IV .Q24H [facility] Rx#: [id number] Oral 200 420 Output: Urine 800 300 400 Other: Voiding Method Urinal Urinal # Voids 1 - Exam On exam, the patient is alert and oriented and appears in no acute distress. Vital signs are stable and is sitting up in his bed. Heent: conjunctivae normal, EOMs intact Neck: supple, no lymph nodes noted, JVD is noted Cardiovascular: S1, S2 heard Respiratory: breath sounds diminished with expiratory wheezing and scattered rhonchi throughout Abdomen: soft, non-tender,and moderately distended Legs: no swelling or edema noted Nervous system: no new focal deficits Skin: dry, no rashes or lesions noted. Labs: As noted below - Constitutional General appearance: Present: disheveled, no acute distress - Respiratory Respiratory: bilateral: diminished, rhonchi, wheezing - Neurologic Neurologic: Present: CNII-XII intact - Psychiatric Psychiatric: Present: A&O x's 3 - Labs CBC & Chem 7: 09/21/18 02:13 09/21/18 02:13 Labs: Abnormal Lab Results - Last 24 Hours (Table) 09/21/18 09/21/18 09/21/18 Range/Units 02:08 02:13 02:13 RBC 4.21 L (4.30-5.90) m/uL Hgb 11.5 L (13.0-17.5) gm/dL Hct 38.9 L (39.0-53.0) % MCHC 29.7 L (31.0-37.0) g/dL RDW 17.7 H (11.5-15.5) % Lymphocytes # 0.4 L (1.0-4.8) k/uL PT 13.2 H (9.0-12.0) sec INR 1.3 H (<1.2) APTT 40.9 H (22.0-30.0) sec BUN (9-20) mg/dL Glucose (74-99) mg/dL 09/21/18 Range/Units 02:13 RBC (4.30-5.90) m/uL Hgb (13.0-17.5) gm/dL Hct (39.0-53.0) % MCHC (31.0-37.0) g/dL RDW (11.5-15.5) % Lymphocytes # (1.0-4.8) k/uL PT (9.0-12.0) sec INR (<1.2) APTT (22.0-30.0) sec BUN 28 H (9-20) mg/dL Glucose 129 H (74-99) mg/dL Microbiology - Last 24 Hours (Table) 09/19/18 16:15 Blood Culture - Preliminary Blood No Growth after 48 hours Assessment and Plan Assessment: Assessment: Shortness of breath with acute hypoxic respiratory failure secondary to pleural effusion which is secondary to chronic heart failure exacerbation. May be related to cirrhosis as well. Patient is receiving a thoracentesis today and will follow closely of the report and results. Patient is still currently on lasix Congestive heart failure with chronic systolic dysfunction and acute exacerbation. Current EF is 20-25%. Chronic A-fib with increased heart rate that is now in better control. Will continue to monitor as Metoprolol dose was increased yesterday. Ernesto is being held still at this time as he is undergoing a thoracentesis this afternoon and a Paracentesis tomorrow. Currently on heparin. Chronic venous stasis of bilateral lower extremities Possibility of cirrhosis with ascites History of laryngeal cancer with s/p radiation therapy COPD with possible exacerbation. will continue on breathing treatments and steroids hypertension Hyperlipidemia Type 2 diabetes mellitus Continued nicotine use: counseling provided Patient will also need GI prophylaxis Elevated ammonia level (72), lactulose ordered and to be given BID and may taper to PRN after two loose stools Recommendations and Discussion: Recommend continuing current medications and symptomatic management. Will continue with inhalation treatments along with oral steroids. Will continue to monitor closely. Will continue to monitor lab values and vitals. Discussed in length about pain control and management. Continue to monitor blood sugars. Further instructions to follow. Prognosis is guarded at this time due to the multiple medical issues as mentioned previously. Patient is to go for a thoracentesis this afternoon and will follow closely for the report and results. Cardiology to follow as needed. Current recommendations suggest continuing current medications.
[2018-09-22] MEDS: PANTOPRAZOLE 40 MG TABLET PO SCH (06:37)
[2018-09-22 07:18] LABS: African American GFR (CKD) >90 (>60 ml/min/1.73 sqM); Anion Gap 9 mmol/L; Anisocytosis Slight; Basophils % (A) 0 %; Blood Urea Nitrogen 33 mg/dL (9-20); Calcium 9.1 mg/dL (8.4-10.2); Carbon Dioxide 30 mmol/L (22-30); Chloride 99 mmol/L (98-107); Eosinophils % (A) 1 %; Glucose 109 mg/dL (74-99); HCT 39.3 % (39.0-53.0); HGB 11.7 gm/dL (13.0-17.5); Hypochromasia Moderate; Lymphocytes # (A) 0.7 k/uL (1.0-4.8); Lymphocytes % (A) 9 %; MCH 27.2 pg (25.0-35.0); MCHC 29.8 g/dL (31.0-37.0); MCV 91.4 fL (80.0-100.0); Mean Platelet Volume 7.6; Monocytes # (A) 0.7 k/uL (0-1.0); Monocytes % (A) 9 %; Neutrophils # (A) 5.4 k/uL (1.3-7.7); Neutrophils % (A) 77 %; Platelet Count 270 k/uL (150-450); Potassium 4.4 mmol/L (3.5-5.1); RDW 17.7 % (11.5-15.5); Sodium 138 mmol/L (137-145)
[2018-09-22] MEDS: SYMBICORT 160-4.5 MCG INHALER INHALATION SCH ×2 (07:58→20:01)
[2018-09-22] MEDS: IPRATROPIUM-ALBUTEROL 3 ML NEB INHALATION SCH ×4 (07:58→20:01)
[2018-09-22] MEDS: predniSONE 20 MG TAB PO SCH (11:48)
[2018-09-22] MEDS: ISOSORBIDE MONONITRATE ER 30 MG TAB.ER.24H PO SCH (11:48)
[2018-09-22] MEDS: METOPROLOL TARTRATE 50 MG TAB PO SCH ×2 (11:48→20:23)
[2018-09-22] MEDS: FUROSEMIDE 10 MG/ML 4 ML VIAL IV SCH ×3 (11:48→22:59)
[2018-09-22] MEDS: SPIRONOLACTONE 25 MG TAB PO SCH ×2 (11:48→20:22)
--- NOTE | 2018-09-22 16:53 | US ---
Therapeutic paracentesis. DATE OF EXAM: 09/22/2018 CLINICAL HISTORY: Ascites The procedure was discussed with the patient. The risks, complications, benefits, and alternatives we re discussed and any questions were answered. Informed consent was obtained. The patient was placed s upine on the ultrasound table and prepped and draped in the usual sterile fashion. All elements of maximal barrier technique were utilized. Under ultrasound guidance, access into the right lower quadrant was obtained, via the paracentesis catheter system and direct ultrasound guidanc e. Approximately 1.9 liters of straw-colored fluid was removed. The patient was stable throughout the pr ocedure and remained stable upon discharge from Department of Radiology. IMPRESSION: Successful therapeutic paracentesis under ultrasound guidance.
[2018-09-22] MEDS: APIXABAN 5 MG TAB PO SCH (20:23)
--- NOTE | 2018-09-22 20:38 | P.PN ---
Subjective Progress Note Date: 09/22/18 Principal diagnosis: This is a 63 year old male that was admitted to the hospital with shortness of breath and recurrent pleural effusions. Patient also has ascites. Yesterday underwent a thoracentesis and 1.5 liters of fluid was removed. Today had a paracentesis performed of which 1.9 liters was removed. Patient is sitting comfortably in the bed eating lunch on room air and states he is feeling much better. Patient denies any shortness of breath, chest pain, or palpitations. Patient is afebrile. Patient is being closely monitored. Patient is requesting to go home in the morning. Objective - Vital Signs Vital signs: Vital Signs Temp 97.8 F 09/22/18 12:00 Pulse 84 09/22/18 20:02 Resp 16 09/22/18 11:20 BP 100/67 09/22/18 16:00 Pulse Ox 99 09/22/18 16:00 Intake & Output 09/22/18 09/22/18 09/23/18 06:59 18:59 06:59 Intake Total 840 Output Total 675 1000 900 Balance -675 -160 -900 Weight 79.9 kg Intake: Oral 840 Output: Urine 675 1000 900 Other: Voiding Method Urinal # Voids 2 # Bowel Movements 0 - Exam On exam, the patient is alert and oriented and appears in no acute distress. V ital signs are stable and patient is sitting in his bed and has just received his lunch tray. Heent: conjunctivae normal, EOMs intact Neck: supple, no lymph nodes noted, JVD noted Cardiovascular: S1, S2 heard, RRR Respiratory: breath sounds diminished with mild expiratory wheezing noted on exam. few scattered rhonchi noted as well Abdomen: mildly firm, non-tender, no masses noted Legs: no swelling or edema noted Nervous system: no new focal deficits, gait is steady Skin: dry, no rashes or lesions noted. Labs: As noted below Assessment: Shortness of breath with acute hypoxic respiratory failure secondary to pleural effusion which is secondary to CHF exacerbation. May be related to cirrhosis as well. Patient underwent a thoracentesis yesterday and paracentesis today and shortness of breath has improved. Patient is currently still on lasix CHF with chronic systolic dysfunction and acute exacerbation. Current EF is 20- 25% Chronic A fib that was initially associated with an increased heart rate, now being controlled. Will continue to monitor closely and consult cardiology on an as needed basis if necessary. Continue with current dose of Metoprolol which was increased yesterday. Patient tolerating well. Eliquis will be restarted this evening. Chronic venous stasis of bilateral lower extremities Possibility of cirrhosis with ascites. Paracentesis was performed with 1.9L removed today. History of laryngeal cancer with s/p radiation therapy COPD with possible exacerbation. Will continue breathing treatments and oral steroids hypertension hyperlipidemia DM type 2 continued nicotine use: counseling provided GI prophylaxis elevated ammonia level, lactulose being given Recommendations and Discussion: Recommend continuing current medications and symptomatic management. Will continue to monitor closely. Will continue to monitor lab values and vitals. Continue to monitor blood sugars and treat accordingly. Further instructions to follow. Prognosis is guarded at this time. Patient requesting to go home tomorrow. Probable discharge in the next 24-48 hours. - Constitutional General appearance: Present: no acute distress - Labs CBC & Chem 7: 09/22/18 06:29 09/22/18 06:29 Labs: Abnormal Lab Results - Last 24 Hours (Table) 09/22/18 09/22/18 Range/Units 06:29 06:29 Hgb 11.7 L (13.0-17.5) gm/dL MCHC 29.8 L (31.0-37.0) g/dL RDW 17.7 H (11.5-15.5) % Lymphocytes # 0.7 L (1.0-4.8) k/uL BUN 33 H (9-20) mg/dL Glucose 109 H (74-99) mg/dL Microbiology - Last 24 Hours (Table) 09/19/18 16:15 Blood Culture - Preliminary Blood No Growth after 72 hours
[2018-09-23 06:10] VITALS: RESP 18
[2018-09-23] MEDS: PANTOPRAZOLE 40 MG TABLET PO SCH (06:11)
[2018-09-23 06:26] LABS: Anisocytosis Slight; Basophils % (A) 0 %; Eosinophils % (A) 0 %; HCT 38.6 % (39.0-53.0); HGB 11.7 gm/dL (13.0-17.5); Hypochromasia Slight; Lymphocytes # (A) 0.5 k/uL (1.0-4.8); Lymphocytes % (A) 6 %; MCH 27.3 pg (25.0-35.0); MCHC 30.3 g/dL (31.0-37.0); Mean Platelet Volume 7.1; Monocytes # (A) 0.7 k/uL (0-1.0); Monocytes % (A) 9 %; Neutrophils # (A) 6.8 k/uL (1.3-7.7); Neutrophils % (A) 82 %; Platelet Count 284 k/uL (150-450); RBC 4.29 m/uL (4.30-5.90); RDW 17.5 % (11.5-15.5); WBC 8.2 k/uL (3.8-10.6)
[2018-09-23 06:41] LABS: African American GFR (CKD) >90 (>60 ml/min/1.73 sqM); Anion Gap 8 mmol/L; Blood Urea Nitrogen 34 mg/dL (9-20); Calcium 9.1 mg/dL (8.4-10.2); Carbon Dioxide 33 mmol/L (22-30); Chloride 96 mmol/L (98-107); Glucose 132 mg/dL (74-99); Potassium 4.4 mmol/L (3.5-5.1); Sodium 137 mmol/L (137-145)
[2018-09-23] MEDS: IPRATROPIUM-ALBUTEROL 3 ML NEB INHALATION SCH ×2 (08:18→11:25)
[2018-09-23] MEDS: SYMBICORT 160-4.5 MCG INHALER INHALATION SCH (08:18)
[2018-09-23] MEDS: APIXABAN 5 MG TAB PO SCH (09:00)
[2018-09-23] MEDS: METOPROLOL TARTRATE 50 MG TAB PO SCH (09:00)
[2018-09-23] MEDS: ISOSORBIDE MONONITRATE ER 30 MG TAB.ER.24H PO SCH (09:00)
[2018-09-23] MEDS: predniSONE 20 MG TAB PO SCH (09:01)
[2018-09-23] MEDS: SPIRONOLACTONE 25 MG TAB PO SCH (09:01)
[2018-09-23] MEDS: FUROSEMIDE 10 MG/ML 4 ML VIAL IV SCH (09:01)
[2018-09-23 11:20] VITALS: BP 140/78; PULSE 108; TEMP 97.2
--- NOTE | 2018-09-23 14:36 | P.DS ---
Providers Date of admission: 09/19/18 17:06 Expected date of discharge: 09/23/18 Attending physician: Andrews Escobar Consults: 09/19/18 17:06 Consult Physician Routine Consulting Provider: Oliverio Mc Consult Reason/Comments: effusion Do you want consulting provider notified?: Yes Consult Physician Routine Consulting Provider: Jose Rafael Sharif Consult Reason/Comments: afib Do you want consulting provider notified?: Yes Primary care physician: Andrews Escobar Hospital Course: Final diagnosis Shortness of breath with acute hypoxic respiratory failure secondary to pleural effusions Congestive heart failure exacerbation, chronic systolic dysfunction Chronic A. fib Chronic venous stasis of bilateral lower extremities Possibility of cirrhosis with ascites History of laryngeal cancer status post radiation therapy COPD with possible exacerbation Hypertension Hyperlipidemia Diabetes Mellitus type II Continued nicotine use, counseling was provided Discharge disposition The patient is being discharged in a stable condition with guarded prognosis to home and instructed to follow-up with his primary care provider this week. History of present illness This is a 63-year-old male that was recently admitted to the hospital with shortness of breath and recurrent pleural effusions. Patient also has ascites. Patient underwent a thoracentesis removing 1.5 L of fluid as well as a paracentesis yesterday removing 1.9 L of fluid. Patient states his breathing is much better but is still experiencing his chronic back pain. Patient states that he has [place] at home and it does no good. Patient denies any chest pain or palpitations at this time. Patient is afebrile patient is currently sitting up at the side of the bed in no acute distress. Patient is willing to go home today and wants to but made mention that he will be back in the next week or 2 due to the fluids building up again. On exam vital signs are stable oxygen saturation is 94% on room air and sitting on the side of the bed in no acute distress. Cardio S1 and S2 are heard. Respiratory shows diminished lung sounds with a few scattered rhonchi noted bilaterally. Abdomen is firm but non-tender. Nervous system shows no new focal deficits and gait is steady. Please refer to the medication reconciliation sheet for list of medications. Patient Condition at Discharge: Stable Plan - Discharge Summary Discharge Rx Participant: No New Discharge Prescriptions: Continue Ipratropium-Albuterol Nebulize [Duoneb 0.5 mg-3 mg/3 ml Soln] 3 ml INHALATION RT-QID #120 ampul.piter Pantoprazole [Protonix] 40 mg PO AC-BRKFST #30 tablet. Albuterol Inhaler [Ventolin Hfa Inhaler] 2 puff INHALATION RT-Q4H PRN #1 puff PRN Reason: Shortness Of Breath Isosorbide Mononitrate ER [Imdur] 30 mg PO DAILY #30 tab.er.24h Nitroglycerin Sl Tabs [Nitrostat] 0.4 mg SUBLINGUAL Q5M PRN #100 tab PRN Reason: Chest Pain Ipratropium/Albuterol Sulfate [Combivent Respimat Inhaler] 2 puff INHALATION RT-QID Spironolactone [Aldactone] 50 mg PO BID #120 tab Aspirin [Adult Low Dose Aspirin EC] 162 mg PO DAILY Metoprolol Tartrate [Lopressor] 25 mg PO BID #60 tab Apixaban [Eliquis] 5 mg PO BID #180 tab Furosemide [Lasix] 40 mg PO DAILY #30 tab Cyclobenzaprine [Flexeril] 10 mg PO TID HYDROcodone/APAP 10-325MG [[place] 10-325] 1 tab PO Q4HR PRN PRN Reason: pain Budesonide-Formot 160-4.5 Mcg [Symbicort 160-4.5 Mcg Inhaler] 2 puff INHALATION RT-BID #1 puff Varenicline [Chantix Starter Pack] See Taper PO DIRECTED Discharge Medication List Albuterol Inhaler [Ventolin Hfa Inhaler] 2 puff INHALATION RT-Q4H PRN #1 puff 03/17/18 [Rx] Ipratropium-Albuterol Nebulize [Duoneb 0.5 mg-3 mg/3 ml Soln] 3 ml INHALATION RT-QID #120 ampul.neb 03/17/18 [Rx] Isosorbide Mononitrate ER [Imdur] 30 mg PO DAILY #30 tab.er.24h 03/17/18 [Rx] Nitroglycerin Sl Tabs [Nitrostat] 0.4 mg SUBLINGUAL Q5M PRN #100 tab 03/17/18 [Rx] Pantoprazole [Protonix] 40 mg PO AC-BRKFST #30 tablet. 03/17/18 [Rx] Ipratropium/Albuterol Sulfate [Combivent Respimat Inhaler] 2 puff INHALATION RT- QID 05/08/18 [History] Spironolactone [Aldactone] 50 mg PO BID #120 tab 05/11/18 [Rx] Aspirin [Adult Low Dose Aspirin EC] 162 mg PO DAILY 06/27/18 [History] Metoprolol Tartrate [Lopressor] 25 mg PO BID #60 tab 07/12/18 [Rx] Apixaban [Eliquis] 5 mg PO BID #180 tab 07/13/18 [Rx] Furosemide [Lasix] 40 mg PO DAILY #30 tab 08/05/18 [Rx] Cyclobenzaprine [Flexeril] 10 mg PO TID 08/23/18 [History] HYDROcodone/APAP 10-325MG [[place] 10-325] 1 tab PO Q4HR PRN 08/23/18 [History] Budesonide-Formot 160-4.5 Mcg [Symbicort 160-4.5 Mcg Inhaler] 2 puff INHALATION RT-BID #1 puff 09/05/18 [Rx] Varenicline [Chantix Starter Pack] See Taper PO DIRECTED 09/20/18 [History] Follow up Appointment(s)/Referral(s): Andrews Escobar MD [Primary Care Provider] - 09/30/18 3:20 pm (Wednesday) Oliverio Mc MD [STAFF PHYSICIAN] - 1 Week (Please call to schedule appointment) Maria Victoria Mayers MD [STAFF PHYSICIAN] - 1 Week (Spoke to customer service receptionist. Office will call you with appointment time) Activity/Diet/Wound Care/Special Instructions: activity limited until follow up avoid smoking continue current medications continue current diet Discharge Disposition: HOME SELF-CARE
== END 2018-09-23 12:56 | disposition home or self-care (01) | DRG 291 ==
LOC: EC 15:18 → 3SCARD 17:06
PROVIDERS: ADMIT Family Medicine; ATTEND Family Medicine
PROC: 0W993ZZ Drainage of Right Pleural Cavity, Percutaneous Approach (ICD-10-PCS; principal; 2018-09-21)
PROC: 0W9G3ZZ Drainage of Peritoneal Cavity, Percutaneous Approach (ICD-10-PCS; 2018-09-22)
DX: I11.0 Hypertensive heart disease with heart failure (principal); J96.01 Acute respiratory failure with hypoxia; I48.1 Persistent atrial fibrillation; J98.11 Atelectasis; I69.354 Hemiplegia and hemiparesis following cerebral infarction affecting left non-dominant side; J44.1 Chronic obstructive pulmonary disease with (acute) exacerbation; I50.43 Acute on chronic combined systolic (congestive) and diastolic (congestive) heart failure; E11.9 Type 2 diabetes mellitus without complications; E78.5 Hyperlipidemia, unspecified; F17.200 Nicotine dependence, unspecified, uncomplicated; F32.9 Major depressive disorder, single episode, unspecified; F41.9 Anxiety disorder, unspecified; G89.29 Other chronic pain; I25.110 Atherosclerotic heart disease of native coronary artery with unstable angina pectoris; I25.2 Old myocardial infarction; I25.5 Ischemic cardiomyopathy; I27.20 Pulmonary hypertension, unspecified; I34.0 Nonrheumatic mitral (valve) insufficiency; I87.8 Other specified disorders of veins; K21.9 Gastro-esophageal reflux disease without esophagitis; K70.31 Alcoholic cirrhosis of liver with ascites; L53.8 Other specified erythematous conditions; T38.0X5A Adverse effect of glucocorticoids and synthetic analogues, initial encounter; Z79.01 Long term (current) use of anticoagulants; Z79.51 Long term (current) use of inhaled steroids; Z79.82 Long term (current) use of aspirin; Z79.899 Other long term (current) drug therapy; Z82.49 Family history of ischemic heart disease and other diseases of the circulatory system; Z83.3 Family history of diabetes mellitus; Z85.21 Personal history of malignant neoplasm of larynx; Z86.711 Personal history of pulmonary embolism; Z86.718 Personal history of other venous thrombosis and embolism; Z92.3 Personal history of irradiation; Z88.5 Allergy status to narcotic agent; Z88.8 Allergy status to other drugs, medicaments and biological substances; Z71.6 Tobacco abuse counseling
CPT/HCPCS: 32555; 36415; 49083; 71045; 71046; 76604; 76705; 80048; 80053; 82140; 83605; 83735; 83880; 84484; 85025; 85610; 85730; 87040; 93005; 93306; 94640; 94760; 96361; 96365; 96375; 96376; 99285

== ENCOUNTER 2018-09-30 07:31 | Inpatient (IN) | payer OTHER ==
[2018-09-30] MEDS ORDERED: IPRATROPIUM-ALBUTEROL 3 ML NEB INHALATION STA (07:52)
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
--- NOTE | 2018-09-30 08:32 | XR ---
EXAMINATION TYPE: XR chest 2V DATE OF EXAM: 09/30/2018 COMPARISON: 09/19/2018 HISTORY: Shortness of breath TECHNIQUE: Frontal and lateral views of the chest are obtained. FINDINGS: Scattered senescent parenchymal changes noted. Hyperinflation compatible with COPD. Persistent right basilar opacity which may reflect a combination of effusion, atelectasis and/or infi ltrate. Underlying mass is not excluded. The left lung is clear. Heart size is stable. Mediastinal structures are stable and grossly unremarkable. No evidence for hilar prominence. Degenerative changes dorsal spine. IMPRESSION: 1. Persistent right basilar opacity which may reflect a combination of effusion, atelectasis and/or i nfiltrate. Underlying mass is not excluded.
[2018-09-30 08:38] LABS: Anisocytosis Slight; Basophils % (A) 1 %; Eosinophils # (A) 0.2 k/uL (0-0.7); Eosinophils % (A) 3 %; HCT 38.2 % (39.0-53.0); HGB 11.5 gm/dL (13.0-17.5); Hypochromasia Moderate; Lymphocytes # (A) 0.5 k/uL (1.0-4.8); Lymphocytes % (A) 7 %; MCHC 30.1 g/dL (31.0-37.0); MCV 89.8 fL (80.0-100.0); Mean Platelet Volume 7.1; Monocytes # (A) 0.8 k/uL (0-1.0); Monocytes % (A) 11 %; Neutrophils % (A) 75 %; Platelet Count 284 k/uL (150-450); RBC 4.26 m/uL (4.30-5.90); RDW 17.4 % (11.5-15.5); WBC 6.7 k/uL (3.8-10.6)
[2018-09-30 08:49] LABS: INR 1.1 (<1.2); Partial Thromboplastin Time 27.6 sec (22.0-30.0); Prothrombin Time 11.2 sec (9.0-12.0)
[2018-09-30 08:51] LABS: ALT 27 U/L (21-72); AST 37 U/L (17-59); African American GFR (CKD) >90 (>60 ml/min/1.73 sqM); Albumin 3.6 g/dL (3.5-5.0); Alkaline Phosphatase 307 U/L (38-126); Anion Gap 9 mmol/L; Blood Urea Nitrogen 26 mg/dL (9-20); Calcium 8.8 mg/dL (8.4-10.2); Carbon Dioxide 26 mmol/L (22-30); Chloride 102 mmol/L (98-107); Glucose 106 mg/dL (74-99); Potassium 4.6 mmol/L (3.5-5.1); Sodium 137 mmol/L (137-145); Total Bilirubin 0.9 mg/dL (0.2-1.3); Total Protein 6.9 g/dL (6.3-8.2)
[2018-09-30] MEDS ORDERED: methylPREDNISolone SOD SUCCI 125 MG/2 ML VIAL IV STA (09:22)
[2018-09-30] MEDS ORDERED: HYDROcodone/APAP 5-325MG 1 EACH TAB PO STA (10:00)
[2018-09-30] MEDS: IPRATROPIUM-ALBUTEROL 3 ML NEB INHALATION SCH ×3 (12:00→19:31)
[2018-09-30] MEDS ORDERED: NITROGLYCERIN SL TABS 0.4 MG TAB SUBLINGUAL PRN (12:19)
[2018-09-30 12:23] VITALS: BMI 26.6
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
[2018-09-30] MEDS ORDERED: methylPREDNISolone SOD SUCCI 125 MG/2 ML VIAL IV SCH (13:00)
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
[2018-09-30] MEDS ORDERED: IPRATROPIUM-ALBUTEROL 3 ML NEB INHALATION SCH (16:00)
[2018-09-30] MEDS: FUROSEMIDE 10 MG/ML 4 ML VIAL IV SCH ×2 (16:12→23:35)
[2018-09-30] MEDS: CYCLOBENZAPRINE 10 MG TAB PO SCH ×2 (16:12→21:45)
[2018-09-30] MEDS: SYMBICORT 160-4.5 MCG INHALER INHALATION SCH (19:31)
[2018-09-30] MEDS: SPIRONOLACTONE 25 MG TAB PO SCH (20:16)
[2018-09-30] MEDS: METOPROLOL TARTRATE 25 MG TAB PO SCH (20:16)
[2018-10-01] MEDS: IPRATROPIUM-ALBUTEROL 3 ML NEB INHALATION PRN (02:30)
[2018-10-01] MEDS: SYMBICORT 160-4.5 MCG INHALER INHALATION SCH ×2 (08:04→19:44)
[2018-10-01] MEDS: IPRATROPIUM-ALBUTEROL 3 ML NEB INHALATION SCH ×4 (08:04→19:45)
[2018-10-01] MEDS: ISOSORBIDE MONONITRATE ER 30 MG TAB.ER.24H PO SCH (09:21)
[2018-10-01] MEDS: SPIRONOLACTONE 25 MG TAB PO SCH ×2 (09:21→20:19)
[2018-10-01] MEDS: PANTOPRAZOLE 40 MG TABLET PO SCH (09:21)
[2018-10-01] MEDS: METOPROLOL TARTRATE 25 MG TAB PO SCH ×2 (09:21→20:19)
[2018-10-01] MEDS: FUROSEMIDE 10 MG/ML 4 ML VIAL IV SCH ×3 (09:22→22:58)
[2018-10-01] MEDS: CYCLOBENZAPRINE 10 MG TAB PO SCH ×4 (09:22→22:57)
[2018-10-01] MEDS: ASPIRIN 81 MG PO SCH ×2 (09:23→09:30)
[2018-10-01] MEDS: HYDROcodone/APAP 10-325MG 1 EACH TAB PO PRN ×3 (10:44→20:19)
--- NOTE | 2018-10-01 14:45 | P.PN ---
Subjective 63-year-old male was admitted for right-sided pleural effusion and shortness of breath. Patient has heart failure chronic diastolic systolic dysfunction as well as cirrhosis multiple hospitalizations effusion and the patient is scheduled for therapeutic thoracocentesis and probably paracentesis to on Wednesday. Eliquis is being held. Patient is complaining of generalized body aches and pains patient was started on tramadol will also get an ammonia level on him. Constitutional: Denied any fatigue denied any fever. Cardio vascular: denied any chest pain, palpitations Gastrointestinal denied any nausea vomiting Pulmonary: Denied any shortness of breath cough Neurologic denied any new focal deficits All inpatient medications were reviewed and appropriate changes in these medications as dictated in the interval history and assessment and plan. Objective - Vital Signs Vital signs: Vital Signs Temp 97.4 F L 10/01/18 13:00 Pulse 71 10/01/18 13:00 Resp 18 10/01/18 13:00 BP 109/71 10/01/18 13:00 Pulse Ox 100 10/01/18 13:00 Intake & Output 09/30/18 10/01/18 10/01/18 18:59 06:59 18:59 Intake Total 1310 Balance 1310 Weight 77.111 kg 76.4 kg Intake: Oral 1310 Other: Voiding Method Toilet Toilet # Voids 2 2 - Exam PHYSICAL EXAMINATION: GENERAL: The patient is alert and oriented x3, not in any acute distress. Well developed, well nourished. HEENT: Pupils are round and equally reacting to light. EOMI. No scleral icterus. No conjunctival pallor. Normocephalic, atraumatic. No pharyngeal erythema. No thyromegaly. CARDIOVASCULAR: S1 and S2 present. No murmurs, rubs, or gallops. PULMONARY: We will expiratory wheezing degrees entry into bilateral lung figueroa ABDOMEN: Distended with some shifting dullness and ascites. MUSCULOSKELETAL: No joint swelling or deformity. EXTREMITIES: No cyanosis, clubbing, or pedal edema. NEUROLOGICAL: Gross neurological examination did not reveal any focal deficits. SKIN: No rashes. - Labs CBC & Chem 7: 09/30/18 08:03 09/30/18 08:03 Assessment and Plan Plan: Shortness of breath because of right-sided pleural effusion with some COPD mild acute exacerbation patient will be started on inhaled steroids inhalational treatments ultrasound-guided thoracocentesis was ordered Eliquis will be held -COPD with mild acute exacerbation -Type 2 diabetes mellitus patient will be resumed on his home regimen titrate insulin depending on his sliding scale requirements --Cirrhosis probably alcoholic cirrhosis does have some ascites without any evidence of spontaneous bacterial peritonitis -History of laryngeal cancer status post radiation therapy -Hypertension -Hyperlipidemia -Congestive heart failure chronic systolic dysfunction as well as diastolic d ysfunction with acute exacerbation. Patient has EF of 20-25% -Atrial fibrillation: Presently rate controlled anti-correlation is on hold for possible thoracocentesis
[2018-10-01] MEDS: traMADol 50 MG TAB PO PRN (20:21)
[2018-10-02] MEDS: HYDROcodone/APAP 10-325MG 1 EACH TAB PO PRN ×3 (02:41→21:41)
[2018-10-02] MEDS: traMADol 50 MG TAB PO PRN (02:41)
[2018-10-02] MEDS: IPRATROPIUM-ALBUTEROL 3 ML NEB INHALATION PRN ×2 (03:02→23:52)
[2018-10-02] MEDS: SYMBICORT 160-4.5 MCG INHALER INHALATION SCH ×2 (08:34→20:34)
[2018-10-02] MEDS: IPRATROPIUM-ALBUTEROL 3 ML NEB INHALATION SCH ×4 (08:34→20:34)
[2018-10-02] MEDS: CYCLOBENZAPRINE 10 MG TAB PO SCH ×3 (08:53→21:41)
[2018-10-02] MEDS: ISOSORBIDE MONONITRATE ER 30 MG TAB.ER.24H PO SCH (08:53)
[2018-10-02] MEDS: SPIRONOLACTONE 25 MG TAB PO SCH ×2 (08:53→21:41)
[2018-10-02] MEDS: METOPROLOL TARTRATE 25 MG TAB PO SCH ×2 (08:53→21:45)
[2018-10-02] MEDS: ASPIRIN 81 MG PO SCH (08:54)
[2018-10-02] MEDS: PANTOPRAZOLE 40 MG TABLET PO SCH (08:54)
[2018-10-02] MEDS: FUROSEMIDE 10 MG/ML 4 ML VIAL IV SCH ×3 (08:54→23:40)
[2018-10-02] MEDS ORDERED: ONDANSETRON 4 MG/2 ML VIAL IVP PRN (12:42)
--- NOTE | 2018-10-02 13:35 | P.PN ---
Subjective 63-year-old male was admitted for right-sided pleural effusion and shortness of breath. Patient has heart failure chronic diastolic systolic dysfunction as well as cirrhosis multiple hospitalizations effusion and the patient is scheduled for therapeutic thoracocentesis and probably paracentesis to on Wednesday. Eliquis is being held. Patient is complaining of generalized body aches and pains patient was started on tramadol will also get an ammonia level on him. 10/02/2018 No overnight events. Ammonia level is 39 Constitutional: Denied any fatigue denied any fever. Cardio vascular: denied any chest pain, palpitations Gastrointestinal denied any nausea vomiting Pulmonary: Denied any shortness of breath cough Neurologic denied any new focal deficits All inpatient medications were reviewed and appropriate changes in these medications as dictated in the interval history and assessment and plan. Objective - Vital Signs Vital signs: Vital Signs Temp 97.6 F 10/02/18 12:01 Pulse 59 L 10/02/18 12:01 Resp 17 10/02/18 12:01 BP 121/77 10/02/18 12:01 Pulse Ox 100 10/02/18 12:01 Intake & Output 10/01/18 10/02/18 10/02/18 18:59 06:59 18:59 Intake Total 580 950 240 Balance 580 950 240 Weight 76 kg Intake: Oral 580 950 240 Other: Voiding Method Toilet Toilet Toilet # Voids 2 2 2 - Exam PHYSICAL EXAMINATION: GENERAL: The patient is alert and oriented x3, not in any acute distress. Well developed, well nourished. HEENT: Pupils are round and equally reacting to light. EOMI. No scleral icterus. No conjunctival pallor. Normocephalic, atraumatic. No pharyngeal erythema. No thyromegaly. CARDIOVASCULAR: S1 and S2 present. No murmurs, rubs, or gallops. PULMONARY: We will expiratory wheezing degrees entry into bilateral lung figueroa ABDOMEN: Distended with some shifting dullness and ascites. MUSCULOSKELETAL: No joint swelling or deformity. EXTREMITIES: No cyanosis, clubbing, or pedal edema. NEUROLOGICAL: Gross neurological examination did not reveal any focal deficits. SKIN: No rashes. - Labs CBC & Chem 7: 09/30/18 08:03 09/30/18 08:03 Labs: Abnormal Lab Results - Last 24 Hours (Table) 10/01/18 Range/Units 15:04 Ammonia 39 H (<30) umol/L Assessment and Plan Plan: Shortness of breath because of right-sided pleural effusion with some COPD mild acute exacerbation patient will be started on inhaled steroids inhalational treatments ultrasound-guided thoracocentesis was ordered Eliquis will be held -COPD with mild acute exacerbation -Type 2 diabetes mellitus patient will be resumed on his home regimen titrate insulin depending on his sliding scale requirements --Cirrhosis probably alcoholic cirrhosis does have some ascites without any evidence of spontaneous bacterial peritonitis -History of laryngeal cancer status post radiation therapy -Hypertension -Hyperlipidemia -Congestive heart failure chronic systolic dysfunction as well as diastolic dysfunction with acute exacerbation. Patient has EF of 20-25% -Atrial fibrillation: Presently rate controlled anti-correlation is on hold for possible thoracocentesis
[2018-10-03] MEDS: IPRATROPIUM-ALBUTEROL 3 ML NEB INHALATION PRN ×2 (04:29→23:10)
[2018-10-03] MEDS: SYMBICORT 160-4.5 MCG INHALER INHALATION SCH ×2 (08:22→19:41)
[2018-10-03] MEDS: IPRATROPIUM-ALBUTEROL 3 ML NEB INHALATION SCH ×4 (08:22→19:41)
[2018-10-03] MEDS: FUROSEMIDE 10 MG/ML 4 ML VIAL IV SCH ×3 (08:43→23:46)
[2018-10-03] MEDS: METOPROLOL TARTRATE 25 MG TAB PO SCH ×2 (08:44→21:46)
[2018-10-03] MEDS: SPIRONOLACTONE 25 MG TAB PO SCH ×2 (08:44→21:46)
[2018-10-03] MEDS: ISOSORBIDE MONONITRATE ER 30 MG TAB.ER.24H PO SCH (08:44)
[2018-10-03] MEDS: CYCLOBENZAPRINE 10 MG TAB PO SCH ×3 (08:44→21:46)
[2018-10-03] MEDS: ASPIRIN 81 MG PO SCH (08:44)
[2018-10-03] MEDS: PANTOPRAZOLE 40 MG TABLET PO SCH (08:44)
[2018-10-03 09:15] LABS: Anisocytosis Slight; Basophils % (A) 1 %; Eosinophils # (A) 0.2 k/uL (0-0.7); Eosinophils % (A) 2 %; HCT 37.5 % (39.0-53.0); HGB 11.2 gm/dL (13.0-17.5); Hypochromasia Moderate; Lymphocytes # (A) 0.5 k/uL (1.0-4.8); Lymphocytes % (A) 7 %; MCH 27.3 pg (25.0-35.0); MCHC 29.9 g/dL (31.0-37.0); MCV 91.2 fL (80.0-100.0); Mean Platelet Volume 6.8; Monocytes # (A) 0.6 k/uL (0-1.0); Monocytes % (A) 9 %; Neutrophils # (A) 5.9 k/uL (1.3-7.7); Neutrophils % (A) 79 %; Platelet Count 253 k/uL (150-450); RBC 4.11 m/uL (4.30-5.90); RDW 17.6 % (11.5-15.5); WBC 7.4 k/uL (3.8-10.6)
[2018-10-03 09:41] LABS: African American GFR (CKD) >90 (>60 ml/min/1.73 sqM); Anion Gap 9 mmol/L; Blood Urea Nitrogen 32 mg/dL (9-20); Calcium 8.5 mg/dL (8.4-10.2); Carbon Dioxide 30 mmol/L (22-30); Chloride 99 mmol/L (98-107); Glucose 139 mg/dL (74-99); Potassium 4.1 mmol/L (3.5-5.1); Sodium 138 mmol/L (137-145)
--- NOTE | 2018-10-03 11:05 | P.PN ---
Progress Note - Text Progress Note Date: 10/03/18 s/p u/s guided thoracentesis for right effusion, post procedure chest xray is pending, minimal bleeding, no immediate complication. Full report follows. 1.5 L serous sanguinous fluid for palliation.
--- NOTE | 2018-10-03 11:55 | P.PN ---
Subjective Patient is post thoracentesis 1.5 L states improvement with breathing. Abdomen soft nondistended paracentesis pending at this time. Awaiting recommendations by pulmonology for discharge Objective - Vital Signs Vital signs: Vital Signs Temp 98.1 F 10/03/18 04:42 Pulse 80 10/03/18 11:39 Resp 20 10/03/18 10:50 BP 111/53 10/03/18 10:50 Pulse Ox 96 10/03/18 10:50 Intake & Output 10/02/18 10/03/18 10/03/18 18:59 06:59 18:59 Intake Total 1440 Balance 1440 Weight 72.7 kg Intake: Oral 1440 Other: Voiding Method Toilet Toilet # Voids 3 2 - Constitutional General appearance: Present: mild distress - EENT Eyes: Present: PERRLA Ears: bilateral: normal - Neck Neck: Present: normal ROM - Respiratory Respiratory: bilateral: diminished - Cardiovascular Rhythm: regular - Gastrointestinal General gastrointestinal: Present: soft - Integumentary Integumentary: Present: normal - Musculoskeletal Musculoskeletal: Present: generalized weakness - Psychiatric Psychiatric: Present: A&O x's 3, appropriate affect, intact judgment & insight - Labs CBC & Chem 7: 10/03/18 08:47 10/03/18 08:47 Labs: Abnormal Lab Results - Last 24 Hours (Table) 10/03/18 10/03/18 Range/Units 08:47 08:47 RBC 4.11 L (4.30-5.90) m/uL Hgb 11.2 L (13.0-17.5) gm/dL Hct 37.5 L (39.0-53.0) % MCHC 29.9 L (31.0-37.0) g/dL RDW 17.6 H (11.5-15.5) % Lymphocytes # 0.5 L (1.0-4.8) k/uL BUN 32 H (9-20) mg/dL Glucose 139 H (74-99) mg/dL - Imaging and Cardiology Chest x-ray: report reviewed Assessment and Plan Plan: Assessment Shortness of breath secondary to chronic right-sided pleural effusion with mild exacerbation of COPD Diabetes type 2 Cirrhosis of the liver History of laryngeal cancer post radiation therapy Hypertension Hyperlipidemia Chronic congestive heart failure was systolic dysfunction ejection fraction 2024% also diastolic dysfunction Atrial fibrillation chronic persistent Nicotine use Plan Hopeful discharge soon awaiting recommendations from pulmonology
--- NOTE | 2018-10-03 13:39 | CDI ---
Documentation Clarification Form Date: 10/03/2018 CDS: Katie Stratton RN, CCDS Admit Date: 10/02/2018 Patient Name: Silvino Monet ATTENTION: The Clinical Documentation Specialists (CDI) and [facility] Coding Staff appreciate your assistance in clarifying documentation. Please respond to the clarification below the line at the bottom and electronically sign. The CDI & [facility] Coding staff will review the response and follow-up if needed. Please note: Queries are made part of the Legal Health Record. If you have any questions, please contact the author of this message via ITS. Dr. Andrews Escobar Conflicting documentation has been found in the medical record. In the H & P and in Progress Notes Dated 10/02/2018 and 10/03/2018 Congestive Heart Failure chronic systolic dysfunction as well as diastolic dysfunction with acute exacerbation. In Progress Note dated 10/03/2018 Chronic congestive heart failure was systolic dysfunction ejection fraction 2025% also Diastolic dysfunction. History/Risk Factors: 63 Year old male presents to the ED with shortness of breath and a cough. Medical History COPD, Pleural effusions with thoracentesis, CHF, HTN, Clinical Indicators: CXR persistent right bibasilar opacity . Home Lasix 40 mg po daily, Imdur, Aldactone, Lopressor Treatment: Lasix 40 mg IV every eight hours. Imdur, Lopressor, Aldactone, In your opinion what is the most clinically appropriate diagnosis for this patient? * Acute and Chronic Diastolic and Systolic Heart Failure * Chronic Diastolic and Systolic Heart Failure * Other explanation of clinical findings * Unable to determine (no explanation for clinical findings) (Last Revision: June 2017) MTDD
[2018-10-03] MEDS: HYDROcodone/APAP 10-325MG 1 EACH TAB PO PRN (14:04)
--- NOTE | 2018-10-03 15:17 | XR ---
EXAMINATION TYPE: XR chest 1V portable DATE OF EXAM: 10/03/2018 HISTORY: Status post right-sided thoracentesis. COMPARISON: 09/30/2018 TECHNIQUE: Single view of the chest is submitted. FINDINGS: Demonstrated are scattered senescent parenchymal change. No evidence for pneumothorax. Right basilar effusion appears smaller in size. There is persistent sma ll pleural effusion with right basilar atelectasis infiltrate. The heart is stable. Hilar and mediastinal structures are within normal limits. Degenerative changes are seen of the dorsal spine. IMPRESSION: 1. No evidence for pneumothorax. Right basilar effusion appears smaller in size. There is persistent small pleural effusion with right basilar atelectasis infiltrate.
--- NOTE | 2018-10-03 16:38 | US ---
EXAMINATION TYPE: US thoracentesis DATE OF EXAM: 10/03/2018 COMPARISON: NONE HISTORY: Pleural effusion. FINDINGS: Maximal barrier technique was utilized. The skin overlying a suitable pocket of fluid was localized and the overlying skin prepped and draped. Lidocaine was used for local anesthesia. Ultras ound was used with sterile technique. A 5 [place] catheter over guide needle was advanced into the pl eural fluid collection using ultrasound guidance and the catheter advanced, needle removed. Approxim ately 1.5 liter(s) of serous fluid was removed. Catheter was withdrawn and hemostasis achieved. The re is no immediate complication. The patient discharged in stable condition without complication. IMPRESSION: STATUS POST ULTRASOUND GUIDED THORACENTESIS, POST PROCEDURE CHEST X-RAY PENDING. THIS [place] OCEDURE WAS PERFORMED BY THE UNDERSIGNED.
[2018-10-03] MEDS: HYDROmorphone 0.5 MG/0.5 ML SYRINGE IVP PRN (21:46)
[2018-10-04] MEDS: HYDROcodone/APAP 10-325MG 1 EACH TAB PO PRN ×2 (00:50→13:00)
[2018-10-04] MEDS: IPRATROPIUM-ALBUTEROL 3 ML NEB INHALATION PRN ×2 (03:13→23:10)
[2018-10-04] MEDS: SYMBICORT 160-4.5 MCG INHALER INHALATION SCH ×2 (08:11→19:25)
[2018-10-04] MEDS: IPRATROPIUM-ALBUTEROL 3 ML NEB INHALATION SCH ×4 (08:11→19:25)
[2018-10-04] MEDS: ISOSORBIDE MONONITRATE ER 30 MG TAB.ER.24H PO SCH (08:22)
[2018-10-04] MEDS: SPIRONOLACTONE 25 MG TAB PO SCH ×2 (08:22→22:30)
[2018-10-04] MEDS: FUROSEMIDE 10 MG/ML 4 ML VIAL IV SCH ×2 (08:22→16:17)
[2018-10-04] MEDS: PANTOPRAZOLE 40 MG TABLET PO SCH (08:22)
[2018-10-04] MEDS: METOPROLOL TARTRATE 25 MG TAB PO SCH ×2 (08:22→22:29)
[2018-10-04] MEDS: ASPIRIN 81 MG PO SCH (08:23)
[2018-10-04] MEDS: CYCLOBENZAPRINE 10 MG TAB PO SCH ×3 (08:23→22:30)
--- NOTE | 2018-10-04 11:21 | P.PN ---
Subjective Patient states he doesn't feel as morning has been having intermittent chest pain that radiates the neck with nausea and vomiting. EKG and serial troponins will be ordered with cardiology consult Objective - Vital Signs Vital signs: Vital Signs Temp 98.4 F 10/04/18 05:39 Pulse 80 10/04/18 05:39 Resp 18 10/04/18 05:39 BP 96/61 10/04/18 05:39 Pulse Ox 95 10/04/18 05:39 Intake & Output 10/03/18 10/04/18 10/04/18 18:59 06:59 18:59 Intake Total 500 Output Total 1500 Balance -1500 500 Weight 70.5 kg Intake: Oral 500 Output: Other 1500 Other: Voiding Method Toilet # Voids 3 1 - Constitutional General appearance: Present: mild distress - EENT Eyes: Present: PERRLA Ears: bilateral: normal - Neck Neck: Present: normal ROM - Respiratory Respiratory: bilateral: diminished - Cardiovascular Rhythm: regular - Gastrointestinal General gastrointestinal: Present: soft - Integumentary Integumentary: Present: normal - Neurologic Neurologic: Present: CNII-XII intact - Musculoskeletal Musculoskeletal: Present: generalized weakness - Psychiatric Psychiatric: Present: A&O x's 3, appropriate affect, intact judgment & insight - Labs CBC & Chem 7: 10/03/18 08:47 10/03/18 08:47 Assessment and Plan Plan: Assessment Right pleural effusion chronic with mild COPD exacerbation Diabetes type 2 Liver cirrhosis with chronic abdominal ascites History of laryngeal cancer Hypertension Hyperlipidemia Congestive heart failure chronic diastolic and systolic dysfunction ejection fraction 20-25% Paroxysmal atrial fibrillation controlled rate Nicotine use Chest pain Plan EKG and serial troponins cardiology consultation Awaiting for plan for pulmonology for discharge
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
--- NOTE | 2018-10-04 17:10 | P.DS ---
Providers Date of admission: 10/02/18 14:31 Expected date of discharge: 10/04/18 Attending physician: Andrews Escobar Consults: 09/30/18 09:24 Consult Physician Urgent Consulting Provider: Vaughn Nunez Consult Reason/Comments: Thoracentesis for pleural effusion Do you want consulting provider notified?: Yes 09/30/18 09:25 Consult Physician Urgent Consulting Provider: Tonie Garcia Consult Reason/Comments: dyspnea Do you want consulting provider notified?: Yes 10/04/18 11:22 Consult Physician Urgent Consulting Provider: Jose Rafael Sharif Consult Reason/Comments: chest pain Do you want consulting provider notified?: Yes Primary care physician: Andrews Escobar Hospital Course: 63-year-old male presented to the emergency room with persistent complaints of shortness of breath. Patient has history of pleural effusion and abdominal ascites has had frequent admissions for the same. Patient has heart failure chronic diastolic and systolic dysfunction as well as cirrhosis. Patient developed chest pain last night and was evaluated by cardiology and cleared for discharge. Awaiting results from d-dimer with negative patient can be discharged. If d-dimer is positive patient will need CT the chest Assessment Recurrent pleural effusion with history of of frequent thoracentesis Chronic abdominal ascites with frequent paracentesis COPD with mild exacerbation Diabetes type 2 Cirrhosis of liver History of laryngeal cancer Hypertension Hyperlipidemia Congestive heart failure chronic systolic and diastolic dysfunction EF 20-25% Atrial fibrillation Nicotine use Plan Follow-up with family physician Dr. Andrews Escobar Pulmonology and cardiology Awaiting results from d-dimer Plan - Discharge Summary Discharge Rx Participant: Yes New Discharge Prescriptions: New Budesonide-Formot 160-4.5 Mcg [Symbicort 160-4.5 Mcg Inhaler] 2 puff INHALATION RT-BID #1 puff Continue Ipratropium-Albuterol Nebulize [Duoneb 0.5 mg-3 mg/3 ml Soln] 3 ml INHALATION RT-QID #120 ampul.neb Pantoprazole [Protonix] 40 mg PO AC-BRKFST #30 tablet. Albuterol Inhaler [Ventolin Hfa Inhaler] 2 puff INHALATION RT-Q4H PRN #1 puff PRN Reason: Shortness Of Breath Isosorbide Mononitrate ER [Imdur] 30 mg PO DAILY #30 tab.er.24h Nitroglycerin Sl Tabs [Nitrostat] 0.4 mg SUBLINGUAL Q5M PRN #100 tab PRN Reason: Chest Pain Ipratropium/Albuterol Sulfate [Combivent Respimat Inhaler] 2 puff INHALATION RT-QID Spironolactone [Aldactone] 50 mg PO BID #120 tab Aspirin [Adult Low Dose Aspirin EC] 162 mg PO DAILY Metoprolol Tartrate [Lopressor] 25 mg PO BID #60 tab Apixaban [Eliquis] 5 mg PO BID #180 tab Furosemide [Lasix] 40 mg PO DAILY #30 tab Cyclobenzaprine [Flexeril] 10 mg PO TID HYDROcodone/APAP 10-325MG [Hardwick 10-325] 1 tab PO Q4HR PRN PRN Reason: pain Discharge Medication List Albuterol Inhaler [Ventolin Hfa Inhaler] 2 puff INHALATION RT-Q4H PRN #1 puff 03/17/18 [Rx] Ipratropium-Albuterol Nebulize [Duoneb 0.5 mg-3 mg/3 ml Soln] 3 ml INHALATION RT-QID #120 ampul.neb 03/17/18 [Rx] Isosorbide Mononitrate ER [Imdur] 30 mg PO DAILY #30 tab.er.24h 03/17/18 [Rx] Nitroglycerin Sl Tabs [Nitrostat] 0.4 mg SUBLINGUAL Q5M PRN #100 tab 03/17/18 [Rx] Pantoprazole [Protonix] 40 mg PO AC-BRKFST #30 tablet. 03/17/18 [Rx] Ipratropium/Albuterol Sulfate [Combivent Respimat Inhaler] 2 puff INHALATION RT- QID 05/08/18 [History] Spironolactone [Aldactone] 50 mg PO BID #120 tab 05/11/18 [Rx] Aspirin [Adult Low Dose Aspirin EC] 162 mg PO DAILY 06/27/18 [History] Metoprolol Tartrate [Lopressor] 25 mg PO BID #60 tab 07/12/18 [Rx] Apixaban [Eliquis] 5 mg PO BID #180 tab 07/13/18 [Rx] Furosemide [Lasix] 40 mg PO DAILY #30 tab 08/05/18 [Rx] Cyclobenzaprine [Flexeril] 10 mg PO TID 08/23/18 [History] HYDROcodone/APAP 10-325MG [Hardwick 10-325] 1 tab PO Q4HR PRN 08/23/18 [History] Budesonide-Formot 160-4.5 Mcg [Symbicort 160-4.5 Mcg Inhaler] 2 puff INHALATION RT-BID #1 puff 10/04/18 [Rx] Follow up Appointment(s)/Referral(s): Andrews Escobar MD [Primary Care Provider] - 1-2 days
--- NOTE | 2018-10-04 22:44 | CT ---
EXAMINATION TYPE: CT chest angio for PE with contrast and with 3-D reconstruction renderings DATE OF EXAM: 10/04/2018 COMPARISON: 05/13/2017 HISTORY: D-dimer elevated. Pt extensive cardiac hx, CVA/TIA, PE, DVT, AFIB, COPD. CT DLP: 329.90 mGycm Automated exposure control for dose reduction was used. CONTRAST: CT Chest for pulmonary embolism performed with with IV Contrast, patient injected with 100 mL of Isovue 370. FINDINGS: LUNGS AND PLEURAL SPACES: A RIGHT pleural effusion occupies nearly 40% of the right hemithorax, with associated passive atelectasis of 40% of the right lung parenchyma. The right lung parenchyma that i s inflated is clear. The LEFT lung parenchyma clear and well expanded, with only minimal pleural effu bhumi. MEDIASTINUM: There is a axial filling defect involving the most distal right pulmonary artery, which extends to involve the right lower lobe pulmonary artery and, to a much lesser extent, the right mid dle lobe pulmonary artery. There are no other pulmonary arterial filling defects. There is no evidenc e of right heart strain. There is moderate cardiomegaly. No pericardial effusion. Prominent left and right coronary calcificat ions. No acute aortic findings, but generalized atherosclerotic changes with ascending aortic caliber top n ormal at 4 cm. SKELETAL STRUCTURES: Unremarkable. OTHER: Ascites noted. IMPRESSION: 1) POSITIVE FOR NONOCCLUSIVE RIGHT PULMONARY EMBOLI. 2) RIGHT PLEURAL EFFUSION AND ATELECTASIS OCCUPYING NEARLY 50% OF THE RIGHT HEMITHORAX. Results discussed with the patient's nurse Saadia just now, for the purpose of ensuring intact commun ications.
[2018-10-04] MEDS: HYDROmorphone 0.5 MG/0.5 ML SYRINGE IVP PRN (22:59)
[2018-10-04] MEDS ORDERED: HEPARIN SODIUM,PORCINE 10,000 UNIT/ML 1 ML VIAL IV ONE (23:34)
[2018-10-04] MEDS ORDERED: HEPARIN SODIUM,PORCINE 5,000 UNIT/ML 1 ML VIAL IV PRN (23:34)
[2018-10-04] MEDS ORDERED: HEPARIN SOD,PORK IN 0.45% NACL 25,000 UNIT in 0.45% NACL 1 250ML.BAG IV SCH (23:45)
[2018-10-05 00:22] LABS: Anisocytosis Slight; Basophils % (A) 1 %; Eosinophils # (A) 0.3 k/uL (0-0.7); Eosinophils % (A) 4 %; HCT 42.2 % (39.0-53.0); HGB 12.5 gm/dL (13.0-17.5); Hypochromasia Moderate; Lymphocytes # (A) 0.7 k/uL (1.0-4.8); Lymphocytes % (A) 8 %; MCH 27.3 pg (25.0-35.0); MCHC 29.7 g/dL (31.0-37.0); MCV 91.9 fL (80.0-100.0); Mean Platelet Volume 7.1; Monocytes # (A) 0.7 k/uL (0-1.0); Monocytes % (A) 8 %; Neutrophils # (A) 6.3 k/uL (1.3-7.7); Neutrophils % (A) 78 %; Platelet Count 262 k/uL (150-450); RBC 4.59 m/uL (4.30-5.90); RDW 17.4 % (11.5-15.5); WBC 8.2 k/uL (3.8-10.6)
[2018-10-05 00:40] LABS: INR 1.1 (<1.2); Partial Thromboplastin Time 26.9 sec (22.0-30.0); Prothrombin Time 11.7 sec (9.0-12.0)
[2018-10-05] MEDS: FUROSEMIDE 10 MG/ML 4 ML VIAL IV SCH ×4 (00:43→23:42)
[2018-10-05 07:26] LABS: Anisocytosis Slight; Basophils # (A) 0.1 k/uL (0-0.2); Basophils % (A) 1 %; Eosinophils # (A) 0.3 k/uL (0-0.7); Eosinophils % (A) 4 %; HCT 41.5 % (39.0-53.0); HGB 12.6 gm/dL (13.0-17.5); Hypochromasia Moderate; Lymphocytes # (A) 0.6 k/uL (1.0-4.8); Lymphocytes % (A) 8 %; MCH 28.1 pg (25.0-35.0); MCHC 30.4 g/dL (31.0-37.0); MCV 92.5 fL (80.0-100.0); Mean Platelet Volume 7.3; Monocytes # (A) 0.7 k/uL (0-1.0); Monocytes % (A) 9 %; Neutrophils # (A) 5.5 k/uL (1.3-7.7); Neutrophils % (A) 76 %; Platelet Count 201 k/uL (150-450); RBC 4.49 m/uL (4.30-5.90); RDW 17.8 % (11.5-15.5); WBC 7.3 k/uL (3.8-10.6)
[2018-10-05] MEDS: PANTOPRAZOLE 40 MG TABLET PO SCH (08:05)
[2018-10-05] MEDS: ASPIRIN 81 MG PO SCH (08:05)
[2018-10-05] MEDS: SPIRONOLACTONE 25 MG TAB PO SCH ×2 (08:06→20:20)
[2018-10-05] MEDS: CYCLOBENZAPRINE 10 MG TAB PO SCH ×2 (08:06→21:27)
[2018-10-05] MEDS: ISOSORBIDE MONONITRATE ER 30 MG TAB.ER.24H PO SCH (08:07)
[2018-10-05] MEDS: METOPROLOL TARTRATE 25 MG TAB PO SCH ×2 (08:07→20:20)
[2018-10-05] MEDS: HYDROcodone/APAP 10-325MG 1 EACH TAB PO PRN (08:08)
[2018-10-05] MEDS: SYMBICORT 160-4.5 MCG INHALER INHALATION SCH ×2 (08:23→20:31)
[2018-10-05] MEDS: IPRATROPIUM-ALBUTEROL 3 ML NEB INHALATION SCH ×4 (08:23→20:31)
[2018-10-05] MEDS: traMADol 50 MG TAB PO PRN (11:58)
[2018-10-05 12:24] LABS: Calcium 8.9 mg/dL (8.4-10.2); Potassium 4.6 mmol/L (3.5-5.1)
--- NOTE | 2018-10-05 14:08 | P.PN ---
Subjective Progress Note Date: 10/05/18 Principal diagnosis: Pulmonary embolism, recurrent right-sided pleural effusion This is a 63-year-old male patient of Dr. Andrews Escobar, with history of chronic systolic/diastolic congestive heart failure, recurrent right-sided pleural effusion with multiple previous thoracentesis. Patient has chronic ascites, and required frequent paracentesis. Patient has a history of severe cardiomyopathy with a baseline ejection fraction of 20-25%, chronic atrial fibrillation, hypertension, diabetes mellitus, very artery disease with previous stent placement, history of laryngeal cancer status post radiation, COPD and he does not wear oxygen at baseline. Patient has been requiring hospitalizations every month for complications related to CHF with recurrence of right pleural effusi on, requiring thoracentesis and paracentesis. Patient was hospitalized recently, discharged on 09/23/2018 after being hospitalized for a recurrence ascites and right-sided pleural effusion, underwent right thoracentesis on the 2018 by interventional radiology would removal of 1.5 L of pleural fluid, and paracentesis on 09/22/2018 with removal of 1.9 L of ascitic fluid. Prior to that underwent right-sided thoracentesis by Dr. Mir on 09/01/2018 removal of 1400 mL of dark yellow pleural fluid, patient underwent paracentesis on 08/26/2018 with removal of 1.5 L of ascitic fluid. Previous paracentesis and thoracentesis cytologies were negative for any malignancy. Patient came into the hospital on 09/30/2018 with complaints of not being able to breathe. He continues to smoke, occasional cough with production of some phlegm. No fever or chills. Chest x-ray showed moderately sized right pleural effusion with adjacent atelectasis and/or consolidation, the background of COPD and possible mild pulmonary vascular congestion. EKG admission showed A. fib with a rate of 79. We're asked to see the patient for possibility of right-sided thoracentesis. Admission lab work was reviewed, showing white blood cell count of 6.7, hemoglobin of 11.5, INR is 1.1, electrolytes are within normal limits, B1 is 26 and creatinine was 0.61, proBNP was 3560, troponin was negative 1, patient is afebrile, hemodynamically stable. Patient has been seen in the emergency department 11 times this year, however patient does not follow up with the pulmonary service in the outpatient basis. He states that because he ends up in the hospital before his appointment. Patient used to have a standing or christopher for outpatient paracentesis and thoracentesis in the past, however in the recent few months patient has been ending up in the hospital at least once a month for drainage, is not clear if it is for lack of follow-up on the patient's part. On 10/05/2018 patient seen in follow-up on the medical surgical floor, we were reconsulted today related to a new finding of a pulmonary embolism on the CT chest this morning dose completed related to episode of chest pain and elevated d-dimer. There was exhale filling defect involving the most distal right pulmonary artery which extends to involve the right lower lobe pulmonary artery and to a lesser extent the right middle lobe pulmonary artery. No other pulmonary arterial filling defects were noted. No evidence of right heart strain. There was residual right-sided pleural effusion occupying 40% of the right hemithorax with associated atelectasis. Patient is status post right- sided thoracentesis by interventional radiology on 10/03/2018 with removal of 1.5 L of serous fluid. Patient's Eliquis had been on hold for the procedures, and patient does have a history of previous pulmonary embolism and proximal atrial fibrillation. Yesterday patient was being discharged when she developed severe pleuritic chest pain, and CT chest was completed showing the above- mentioned results. He was started on heparin drip. Currently he is awake and alert, sitting up on the edge of the bed, he is eating his lunch, currently on 3 L of oxygen with a pulse of 700%, he is afebrile, no complaints of chest pain, no hemoptysis, vital signs are stable, no tachycardia. He remains on IV Lasix of 40 mg every 8 hours, he is on breathing treatments, did have mild elevation of troponins of 0.044, and 0.040. Cardiology is following, and is planning on s tarting the patient on Lovenox at therapeutic doses for pulmonary embolism, patient had previously been on Lovenox before and he was covered under his insurance. He is still requiring frequent paracentesis and thoracentesis, and for that reason he would probably be better suited being on Lovenox in case he needs paracentesis or thoracentesis. Objective - Vital Signs Vital signs: Vital Signs Temp 97.3 F L 10/05/18 11:57 Pulse 78 10/05/18 11:57 Resp 16 10/05/18 11:57 BP 109/59 10/05/18 11:57 Pulse Ox 100 10/05/18 11:57 Intake & Output 10/04/18 10/05/18 10/05/18 18:59 06:59 18:59 Intake Total 472 Output Total 950 200 Balance -478 -200 Weight 70.4 kg Intake: Oral 472 Output: Urine 950 200 Other: Voiding Method Toilet Toilet Urinal Urinal # Voids 3 2 - Exam GENERAL EXAM: Alert, 63-year-old white male, on 3 L of oxygen a pulse ox 100% currently on room air comfortable in no apparent distress. HEAD: Normocephalic/atraumatic. EYES: Normal reaction of pupils, equal size. Conjunctiva pink, sclera white. NOSE: Clear with pink turbinates. THROAT: No erythema or exudates. NECK: No masses, no JVD, no thyroid enlargement, no adenopathy. CHEST: No chest wall deformity. Symmetrical expansion. LUNGS: Equal air entry with diminished breath sounds with dullness to percussion over right mid and lower lung CVS: Regular rate and rhythm, normal S1 and S2, no gallops, no murmurs, no rubs ABDOMEN: Soft, nontender, tense, there is abdominal hernia. No hepatosplenomegaly, normal bowel sounds, no guarding or rigidity. EXTREMITIES: No clubbing, plus lower extremity edema, no cyanosis, 2+ pulses and upper and lower extremities. MUSCULOSKELETAL: Muscle strength and tone normal. SPINE: No scoliosis or deformity SKIN: No rashes CENTRAL NERVOUS SYSTEM: Alert and oriented -3. No focal deficits, tone is normal in all 4 extremities. PSYCHIATRIC: Alert and oriented -3. Appropriate affect. Intact judgment and i nsight. - Labs CBC & Chem 7: 10/05/18 06:40 10/05/18 06:40 Labs: Abnormal Lab Results - Last 24 Hours (Table) 10/04/18 10/04/18 10/05/18 Range/Units 16:52 16:52 00:07 Hgb 12.5 L (13.0-17.5) gm/dL MCHC 29.7 L (31.0-37.0) g/dL RDW 17.4 H (11.5-15.5) % Lymphocytes # 0.7 L (1.0-4.8) k/uL APTT (22.0-30.0) sec D-Dimer 6.37 H (<0.60) mg/L FEU Carbon Dioxide (22-30) mmol/L BUN (9-20) mg/dL Glucose (74-99) mg/dL Troponin I 0.040 H* (0.000-0.034) ng/mL 10/05/18 10/05/18 10/05/18 Range/Units 06:40 06:40 06:40 Hgb 12.6 L (13.0-17.5) gm/dL MCHC 30.4 L (31.0-37.0) g/dL RDW 17.8 H (11.5-15.5) % Lymphocytes # 0.6 L (1.0-4.8) k/uL APTT 58.7 H (22.0-30.0) sec D-Dimer (<0.60) mg/L FEU Carbon Dioxide 32 H (22-30) mmol/L BUN 33 H (9-20) mg/dL Glucose 120 H (74-99) mg/dL Troponin I (0.000-0.034) ng/mL Assessment and Plan Plan: Assessment: #1. Recurrent right-sided pleural effusion with history of multiple right-sided thoracentesis status post ultrasound-guided right-sided thoracentesis would removal 1.5 L of pleural fluid on 10/03/2018 by interventional radiology #2. Acute pulmonary embolism, nonocclusive, related to interruption in the anticoagulation due to thoracentesis. Patient developed pleuritic chest pain, and CTA chest showed filling defect in the most distal right pulmonary artery extending to the right lower lobe pulmonary artery and to a lesser degree to the right middle lobe pulmonary artery. With no evidence of right heart strain #3. Left-sided abdominal or chest wall pain, may be chronic in nature. #4. Acute on chronic congestive heart failure with systolic and diastolic dysfunction and severe refractory ascites requiring frequent paracentesis with underlying ejection fraction of 20-25% #5. Chronic lower extremity edema #6. Recurrent ascites #7. History of laryngeal cancer treated with radiation #8. Hypertension, hyperlipidemia #9. Diabetes mellitus #10. History of coronary artery disease with previous history of stenting #11. Chronic and ongoing history of smoking #12. COPD Plan: Patient will be started on Lovenox at therapeutic doses for treatment of pulmonary embolism, cardiology is following, and will be managing the anticoagulation. CT chest did not show any evidence of strain, there was mild elevation of troponins, upper chest pain is resolved, patient is comfortable, no complaints of shortness of breath, he will need to follow up in the outpatient basis in the pulmonary clinic. And patient was told to make sure to give the office a call if he feels worsening shortness of breath and if he thinks that he may need thoracentesis so this can be arranged through the office. I performed a history & physical examination of the patient and discussed their management with my nurse practitioner, Vika Aceves. I reviewed the nurse practitioner's note and agree with the documented findings and plan of care. Lung sounds are positive for diminished breath sounds. The findings and the impression was discussed with the patient. I attest to the documentation by the nurse practitioner. Time with Patient: Less than 30
--- NOTE | 2018-10-05 14:09 | P.PN ---
Subjective This is a pleasant 63-year-old male past medical history significant for ischemic cardiomyopathy, prior myocardial infarction status post stent placement, recurrent ascites requiring recurrent paracentesis, recurrent pleural effusions requiring recurrent thoracentesis, hypertension, dyslipidemia, chronic persistent atrial fibrillation, cirrhosis, COPD, DVT and PE in the past and long-term ongoing nicotine dependence. He follows in the office with Dr. Becker. We've been asked to see him in consultation secondary to chest discomfort. He presented to the hospital 2 days ago with symptoms of shortness of breath and was found to have a recurrent right-sided pleural effusion. He underwent successful thoracentesis yesterday with 1.5 L of fluid removed. He is seen and examined resting comfortably laying flat in bed in no acute distress. He complains of chest and left shoulder discomfort that is worse with deep inspiration or movement of his thoracic region. He denies significant shortness of breath and states he is feeling much better since admission from that respect. He denies nausea, vomiting, diaphoresis, dizziness or palpitations. 10/05/2018 Seen and examined laying flat in bed. CTA chest performed last night revealed a non-occlusive right pulmonary embolism. He has been initiated on IV heparin infusion per pulmonary care team. Other CT findings indicate right pleural effusion nearly 50% of the right hemithorax. Laboratory data reviewed, WBC 7.3, hgb 12.6, plt 201, d-dimer was 6.37. Blood pressure 131/65 heart rate 77. GENERAL: This is a 63-year-old male in no apparent distress at the time of my examination. HEENT: Head is atraumatic, normocephalic. Pupils are equal, round. Sclerae anicteric. Conjunctivae are clear. Mucous membranes of the mouth are moist. Neck is supple. There is no jugular venous distention. No carotid bruit is heard. LUNGS: Clear to auscultation no wheezes, rales or rhonchi. Mild left chest wall and left shoulder tenderness is noted on palpation or with deep breathing. Diminished bilaterally. HEART: Irregular rate and rhythm with systolic ejection murmur at the left sternal border, no rubs or gallops. S1 and S2 heard. EXTREMITIES: No evidence of peripheral edema and no calf tenderness noted. ASSESSMENT Pleuritic chest and left shoulder pain, atypical for angina. Pulmonary embolism, right. Non-occlusive Chronic ischemic cardiomyopathy, EF 25-30% Recurrent pleural effusion status post thoracentesis Recurrent ascites requiring frequent paracentesis Hypertension Dyslipidemia Cirrhosis Chronic systolic heart failure COPD Chronic nicotine dependence PLAN Recommend initiation of lovenox 80 mg SQ BID instead of eliquis secondary to his need for frequent/regular paracentesis and thoracentesis. This will provide thromboembolic protection without needing to be discontinued or held for interventions. Especially with his ongoing history of PE's. Nurse Practitioner note has been reviewed, I agree with a documented findings and plan of care. Patient was seen and examined. Objective - Vital Signs Vital signs: Vital Signs Temp 98.7 F 10/05/18 04:27 Pulse 80 10/05/18 11:44 Resp 18 10/05/18 04:27 BP 131/65 10/05/18 08:10 Pulse Ox 98 10/05/18 08:23 Intake & Output 10/04/18 10/05/18 10/05/18 18:59 06:59 18:59 Intake Total 472 Output Total 950 200 Balance -478 -200 Weight 70.4 kg Intake: Oral 472 Output: Urine 950 200 Other: Voiding Method Toilet Toilet Urinal Urinal # Voids 3 2 - Labs CBC & Chem 7: 10/05/18 06:40 10/05/18 06:40 Labs: Abnormal Lab Results - Last 24 Hours (Table) 10/04/18 10/04/18 10/04/18 Range/Units 11:34 16:52 16:52 Hgb (13.0-17.5) gm/dL MCHC (31.0-37.0) g/dL RDW (11.5-15.5) % Lymphocytes # (1.0-4.8) k/uL APTT (22.0-30.0) sec D-Dimer 6.37 H (<0.60) mg/L FEU Troponin I 0.044 H* 0.040 H* (0.000-0.034) ng/mL 10/05/18 10/05/18 10/05/18 Range/Units 00:07 06:40 06:40 Hgb 12.5 L 12.6 L (13.0-17.5) gm/dL MCHC 29.7 L 30.4 L (31.0-37.0) g/dL RDW 17.4 H 17.8 H (11.5-15.5) % Lymphocytes # 0.7 L 0.6 L (1.0-4.8) k/uL APTT 58.7 H (22.0-30.0) sec D-Dimer (<0.60) mg/L FEU Troponin I (0.000-0.034) ng/mL
[2018-10-05] MEDS: HYDROmorphone 0.5 MG/0.5 ML SYRINGE IVP PRN ×2 (14:38→20:20)
--- NOTE | 2018-10-05 15:23 | P.PN ---
Subjective Was making arrangements for discharge home when patient came back with positive d-dimer CT of the chest with contrast disorder found to have a pulmonary embolism. Pulmonology was contacted regarding that. Patient is known heparin . Plan is for Lovenox and discharge home with instructions to follow-up with pulmonology if she felt that he was short of breath and needing a thoracentesis they would make arrangements outpatient Objective - Vital Signs Vital signs: Vital Signs Temp 97.3 F L 10/05/18 11:57 Pulse 78 10/05/18 11:57 Resp 16 10/05/18 11:57 BP 109/59 10/05/18 11:57 Pulse Ox 100 10/05/18 11:57 Intake & Output 10/04/18 10/05/18 10/05/18 18:59 06:59 18:59 Intake Total 472 Output Total 950 500 Balance -478 -500 Weight 70.4 kg Intake: Oral 472 Output: Urine 950 500 Other: Voiding Method Toilet Toilet Urinal Urinal # Voids 3 2 - Constitutional General appearance: Present: mild distress - EENT Eyes: Present: PERRLA Ears: bilateral: normal - Neck Neck: Present: normal ROM - Respiratory Respiratory: bilateral: wheezing - Cardiovascular Rhythm: irregularly irregular - Gastrointestinal General gastrointestinal: Present: soft - Integumentary Integumentary: Present: normal - Neurologic Neurologic: Present: CNII-XII intact - Musculoskeletal Musculoskeletal: Present: generalized weakness - Psychiatric Psychiatric: Present: A&O x's 3, appropriate affect, intact judgment & insight - Labs CBC & Chem 7: 10/05/18 06:40 10/05/18 06:40 Labs: Abnormal Lab Results - Last 24 Hours (Table) 10/04/18 10/04/18 10/05/18 Range/Units 16:52 16:52 00:07 Hgb 12.5 L (13.0-17.5) gm/dL MCHC 29.7 L (31.0-37.0) g/dL RDW 17.4 H (11.5-15.5) % Lymphocytes # 0.7 L (1.0-4.8) k/uL APTT (22.0-30.0) sec D-Dimer 6.37 H (<0.60) mg/L FEU Carbon Dioxide (22-30) mmol/L BUN (9-20) mg/dL Glucose (74-99) mg/dL Troponin I 0.040 H* (0.000-0.034) ng/mL 10/05/18 10/05/18 10/05/18 Range/Units 06:40 06:40 06:40 Hgb 12.6 L (13.0-17.5) gm/dL MCHC 30.4 L (31.0-37.0) g/dL RDW 17.8 H (11.5-15.5) % Lymphocytes # 0.6 L (1.0-4.8) k/uL APTT 58.7 H (22.0-30.0) sec D-Dimer (<0.60) mg/L FEU Carbon Dioxide 32 H (22-30) mmol/L BUN 33 H (9-20) mg/dL Glucose 120 H (74-99) mg/dL Troponin I (0.000-0.034) ng/mL Assessment and Plan Plan: Assessment Chronic right-sided pleural effusion with frequent thoracentesis COPD with mild exacerbation Diabetes type 2 Cirrhosis History of laryngeal cancer Hypertension Hyperlipidemia Congestive heart failure chronic systolic dysfunction as well as diastolic dysfunction ejection fraction 20-25% Atrial fibrillation chronic persistent Nicotine use Chest pain pleuritic in nature Pulmonary embolism on heparin Plan Initiate Lovenox will be discharged home with instructions to to follow-up with pulmonology if he develops shortness of breath again in outpatient thoracentesis will be arranged
[2018-10-05] MEDS: ENOXAPARIN 80 MG/0.8 ML SYRINGE SQ SCH (18:13)
[2018-10-06] MEDS: HYDROmorphone 0.5 MG/0.5 ML SYRINGE IVP PRN ×2 (04:47→10:53)
[2018-10-06 07:46] LABS: Anisocytosis Slight; Basophils % (A) 1 %; Eosinophils # (A) 0.3 k/uL (0-0.7); Eosinophils % (A) 4 %; HCT 41.6 % (39.0-53.0); HGB 12.6 gm/dL (13.0-17.5); Hypochromasia Moderate; Lymphocytes # (A) 0.6 k/uL (1.0-4.8); Lymphocytes % (A) 8 %; MCHC 30.4 g/dL (31.0-37.0); MCV 91.9 fL (80.0-100.0); Mean Platelet Volume 7.4; Monocytes # (A) 0.7 k/uL (0-1.0); Monocytes % (A) 10 %; Neutrophils # (A) 5.7 k/uL (1.3-7.7); Neutrophils % (A) 75 %; Platelet Count 239 k/uL (150-450); RBC 4.52 m/uL (4.30-5.90); RDW 17.8 % (11.5-15.5); WBC 7.6 k/uL (3.8-10.6)
[2018-10-06] MEDS: ISOSORBIDE MONONITRATE ER 30 MG TAB.ER.24H PO SCH (07:56)
[2018-10-06] MEDS: SPIRONOLACTONE 25 MG TAB PO SCH (07:56)
[2018-10-06] MEDS: FUROSEMIDE 10 MG/ML 4 ML VIAL IV SCH (07:56)
[2018-10-06] MEDS: ENOXAPARIN 80 MG/0.8 ML SYRINGE SQ SCH (07:56)
[2018-10-06] MEDS: ASPIRIN 81 MG PO SCH (07:57)
[2018-10-06] MEDS: METOPROLOL TARTRATE 25 MG TAB PO SCH (07:57)
[2018-10-06] MEDS: PANTOPRAZOLE 40 MG TABLET PO SCH (07:57)
[2018-10-06] MEDS: CYCLOBENZAPRINE 10 MG TAB PO SCH (07:57)
[2018-10-06] MEDS: SYMBICORT 160-4.5 MCG INHALER INHALATION SCH (08:20)
[2018-10-06] MEDS: IPRATROPIUM-ALBUTEROL 3 ML NEB INHALATION SCH ×2 (08:20→11:40)
--- NOTE | 2018-10-06 11:00 | P.PN ---
Progress Note - Text Addendum to discharge summary Congestive heart failure acute on chronic systolic and diastolic dysfunction ejection fraction 20-25% Pulmonary embolism Plan Discharge home on Lovenox alkalosis to be discontinued Cardiology to control anticoagulants Patient to see pulmonology if thoracentesis needed
[2018-10-06 12:06] VITALS: BP 100/65; PULSE 80; RESP 17; TEMP 97.4
== END 2018-10-06 13:50 | disposition home or self-care (01) | DRG 291 ==
LOC: EC 07:31 → 3NMEDONC 09:22 → OBSVTOIN 10-02 14:31
PROVIDERS: ADMIT Family Medicine; ATTEND Family Medicine
PROC: 0W993ZZ Drainage of Right Pleural Cavity, Percutaneous Approach (ICD-10-PCS; principal; 2018-10-03)
DX: I11.0 Hypertensive heart disease with heart failure (principal); I26.99 Other pulmonary embolism without acute cor pulmonale; I48.1 Persistent atrial fibrillation; J44.1 Chronic obstructive pulmonary disease with (acute) exacerbation; J98.11 Atelectasis; I27.20 Pulmonary hypertension, unspecified; I50.43 Acute on chronic combined systolic (congestive) and diastolic (congestive) heart failure; Z86.711 Personal history of pulmonary embolism; Z85.21 Personal history of malignant neoplasm of larynx; Z92.3 Personal history of irradiation; Z86.718 Personal history of other venous thrombosis and embolism; Z79.01 Long term (current) use of anticoagulants; E11.9 Type 2 diabetes mellitus without complications; E78.5 Hyperlipidemia, unspecified; F17.200 Nicotine dependence, unspecified, uncomplicated; F32.9 Major depressive disorder, single episode, unspecified; F41.9 Anxiety disorder, unspecified; I08.1 Rheumatic disorders of both mitral and tricuspid valves; I25.10 Atherosclerotic heart disease of native coronary artery without angina pectoris; I25.2 Old myocardial infarction; I25.5 Ischemic cardiomyopathy; I45.9 Conduction disorder, unspecified; K21.9 Gastro-esophageal reflux disease without esophagitis; K70.31 Alcoholic cirrhosis of liver with ascites; Z79.4 Long term (current) use of insulin; Z79.82 Long term (current) use of aspirin; Z79.899 Other long term (current) drug therapy; Z82.49 Family history of ischemic heart disease and other diseases of the circulatory system; Z83.3 Family history of diabetes mellitus; Z95.5 Presence of coronary angioplasty implant and graft; Z88.5 Allergy status to narcotic agent; Z88.8 Allergy status to other drugs, medicaments and biological substances; Z87.440 Personal history of urinary (tract) infections; I69.334 Monoplegia of upper limb following cerebral infarction affecting left non-dominant side; R13.10 Dysphagia, unspecified; G56.03 Carpal tunnel syndrome, bilateral upper limbs; G89.29 Other chronic pain; R10.9 Unspecified abdominal pain
CPT/HCPCS: 32555; 36415; 71045; 71046; 71275; 80048; 80053; 82140; 83880; 84484; 85025; 85379; 85610; 85730; 93005; 94640; 94760; 96374; 99285

== ENCOUNTER 2018-10-24 09:32 | Day surgery (SDC) | payer OTHER ==
[2018-10-24 10:07] LABS: Mean Platelet Volume 7.9; Platelet Count 245 k/uL (150-450)
[2018-10-24 10:13] VITALS: TEMP 97.5
[2018-10-24 10:14] LABS: INR 1.2 (<1.2); Prothrombin Time 12.2 sec (9.0-12.0)
[2018-10-24 11:00] VITALS: BP 121/76; PULSE 88; RESP 18
--- NOTE | 2018-10-24 11:09 | US ---
Ultrasound-guided therapeutic and diagnostic thoracentesis DATE OF EXAM: 10/24/2018 CLINICAL HISTORY: Right pleural effusion The procedure was discussed with the patient. The risks, complications, benefits, and alternatives we re discussed and any questions were answered. Informed consent was obtained. The patient was placed supine on the ultrasound table and prepped and draped in the usual sterile fas hion. All elements of maximal barrier and sterile technique were utilized. Under ultrasound guidance, access into the pleural space was obtained, via the thoracentesis catheter system and direct ultrasound guidance. Ap proximately 1.5 liters of straw-colored fluid was removed. The patient was stable throughout the procedure and remained stable upon discharge from Department of Radiology. IMPRESSION: 1. Successful therapeutic and diagnostic thoracentesis under ultrasound guidance.
--- NOTE | 2018-10-24 11:09 | XR ---
EXAMINATION TYPE: XR chest 1V portable DATE OF EXAM: 10/24/2018 COMPARISON: 10/03/2018 HISTORY: Post right thoracentesis TECHNIQUE: Single frontal view of the chest is obtained. FINDINGS: There is right-sided consolidation and pleural effusion. Left lung is clear. The heart is enlarged. There is no overt failure. Surgical change overlying the cervical spine. Arthropathy of the shoulders. IMPRESSION: 1. Right lower lobe infiltrate and pleural effusion with no sizable pneumothorax.
== END 2018-10-24 11:19 | disposition home or self-care (01) ==
LOC: RADPROMAIN 09:32
PROVIDERS: ATTEND Family Medicine
DX: J90 Pleural effusion, not elsewhere classified (principal)
CPT/HCPCS: 32555; 36415; 71045; 85049; 85610

== ENCOUNTER 2018-11-01 13:02 | Inpatient (IN) | payer OTHER ==
[2018-11-01] MEDS ORDERED: IPRATROPIUM-ALBUTEROL 3 ML NEB INHALATION STA ×2 (13:59→16:46)
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
[2018-11-01 14:25] LABS: Anisocytosis Slight; Basophils % (A) 1 %; Eosinophils # (A) 0.2 k/uL (0-0.7); Eosinophils % (A) 5 %; HCT 41.3 % (39.0-53.0); HGB 12.4 gm/dL (13.0-17.5); Hypochromasia Marked; Lymphocytes # (A) 0.6 k/uL (1.0-4.8); Lymphocytes % (A) 11 %; MCH 27.1 pg (25.0-35.0); MCV 90.3 fL (80.0-100.0); Mean Platelet Volume 7.4; Monocytes # (A) 0.5 k/uL (0-1.0); Monocytes % (A) 10 %; Neutrophils # (A) 3.7 k/uL (1.3-7.7); Neutrophils % (A) 71 %; Platelet Count 216 k/uL (150-450); RBC 4.57 m/uL (4.30-5.90); RDW 17.2 % (11.5-15.5); WBC 5.3 k/uL (3.8-10.6)
[2018-11-01 14:33] LABS: INR 1.1 (<1.2); Partial Thromboplastin Time 29.5 sec (22.0-30.0); Prothrombin Time 11.2 sec (9.0-12.0)
[2018-11-01 14:36] LABS: ALT 23 U/L (21-72); AST 33 U/L (17-59); African American GFR (CKD) >90 (>60 ml/min/1.73 sqM); Albumin 3.6 g/dL (3.5-5.0); Alkaline Phosphatase 303 U/L (38-126); Anion Gap 6 mmol/L; Blood Urea Nitrogen 17 mg/dL (9-20); Calcium 9.1 mg/dL (8.4-10.2); Carbon Dioxide 33 mmol/L (22-30); Chloride 101 mmol/L (98-107); Glucose 94 mg/dL (74-99); Magnesium 1.9 mg/dL (1.6-2.3); Potassium 4.2 mmol/L (3.5-5.1); Sodium 140 mmol/L (137-145); Total Bilirubin 1.2 mg/dL (0.2-1.3); Total Protein 7.1 g/dL (6.3-8.2)
--- NOTE | 2018-11-01 14:46 | XR ---
EXAMINATION TYPE: XR chest 2V DATE OF EXAM: 11/01/2018 COMPARISON: Chest x-ray dated ago. CTA chest October 04, 2018. HISTORY: History of COPD with shortness of breath TECHNIQUE: Frontal and lateral views of the chest are obtained. FINDINGS: Persistent moderate right-sided pleural effusion with associated compressive atelectasis. Persistent cardiomegaly with atherosclerotic thoracic aorta. Left lung remains clear. Partial visuali zation of surgical change lower cervical spine noted. IMPRESSION: Persistent moderate-sized right pleural effusion and cardiomegaly. No significant change or progression from most recent x-ray.
[2018-11-01] MEDS ORDERED: methylPREDNISolone SOD SUCCI 125 MG/2 ML VIAL IV STA (16:48)
[2018-11-01] MEDS ORDERED: FUROSEMIDE 10 MG/ML 4 ML VIAL IV STA (16:49)
[2018-11-01] MEDS ORDERED: NALOXONE 0.4 MG/ML 1 ML VIAL IV PRN (17:13)
[2018-11-01] MEDS: HYDROcodone/APAP 10-325MG 1 EACH TAB PO PRN ×2 (18:09→21:18)
[2018-11-01] MEDS ORDERED: IPRATROPIUM-ALBUTEROL 3 ML NEB INHALATION SCH (20:00)
[2018-11-01] MEDS ORDERED: IPRATROPIUM-ALBUTEROL 3 ML NEB INHALATION PRN (20:35)
[2018-11-01] MEDS: SPIRONOLACTONE 25 MG TAB PO SCH (21:18)
[2018-11-01] MEDS: METOPROLOL TARTRATE 25 MG TAB PO SCH (21:18)
[2018-11-01] MEDS: CYCLOBENZAPRINE 10 MG TAB PO SCH (21:18)
[2018-11-01] MEDS: ENOXAPARIN 80 MG/0.8 ML SYRINGE SQ SCH (21:21)
[2018-11-01] MEDS: methylPREDNISolone SOD SUCCI 125 MG/2 ML VIAL IV SCH (23:24)
[2018-11-02] MEDS: IPRATROPIUM-ALBUTEROL 3 ML NEB INHALATION SCH ×7 (00:12→23:11)
[2018-11-02] MEDS: HYDROcodone/APAP 10-325MG 1 EACH TAB PO PRN ×3 (01:53→11:56)
[2018-11-02] MEDS: FUROSEMIDE 10 MG/ML 4 ML VIAL IV SCH ×2 (05:15→17:57)
[2018-11-02] MEDS: methylPREDNISolone SOD SUCCI 125 MG/2 ML VIAL IV SCH ×4 (05:22→23:15)
[2018-11-02] MEDS: CYCLOBENZAPRINE 10 MG TAB PO SCH ×3 (07:38→21:32)
[2018-11-02] MEDS: METOPROLOL TARTRATE 25 MG TAB PO SCH ×2 (07:38→21:32)
[2018-11-02] MEDS: ENOXAPARIN 80 MG/0.8 ML SYRINGE SQ SCH ×3 (07:38→21:32)
[2018-11-02] MEDS: PANTOPRAZOLE 40 MG TABLET PO SCH (07:39)
[2018-11-02] MEDS: ASPIRIN 81 MG PO SCH ×2 (07:39→11:44)
[2018-11-02] MEDS: SPIRONOLACTONE 25 MG TAB PO SCH ×2 (07:39→21:32)
--- NOTE | 2018-11-02 08:11 | US ---
EXAMINATION TYPE: US chest DATE OF EXAM: 11/02/2018 COMPARISON: NONE CLINICAL HISTORY: Markings for thoracentesis by pulmonary staff. TECHNIQUE: Targeted ultrasound of the posterior lower bilateral EXAM MEASUREMENTS: Right Pleural Effusion pocket size: 12.8 cm Right skin surface to fluid distance: 2.8 cm Left Pleural Effusion pocket size: 1.8 cm Right side marked for possible thoracentesis outside the dept. Left side NOT marked Pulmonologists are able to review the images in the patient?s EMR. IMPRESSIONS: Large right pleural effusion. Small left pleural effusion
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
[2018-11-02] MEDS ORDERED: HYDROmorphone 0.5 MG/0.5 ML SYRINGE IM PRN (10:08)
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
[2018-11-02] MEDS: HYDROmorphone 0.5 MG/0.5 ML SYRINGE IVP PRN ×2 (12:04→17:55)
[2018-11-02 13:22] VITALS: BMI 27.1
--- NOTE | 2018-11-02 13:23 | XR ---
EXAMINATION TYPE: XR chest 1V portable DATE OF EXAM: 11/02/2018 COMPARISON: Prior chest x-ray 11/01/2018 HISTORY: Status post thoracentesis TECHNIQUE: Single frontal view of the chest is obtained. FINDINGS: Density at the right lung base is noted with blunting the costophrenic angle. There is no evident pneumothorax. Heart is stable. Postop changes noted in the cervical spine. IMPRESSION: No evident complication status post thoracentesis.
--- NOTE | 2018-11-02 16:19 | US ---
EXAMINATION TYPE: US paracentesis abd w/image DATE OF EXAM: 11/02/2018 COMPARISON: NONE HISTORY: Ascites. PROCEDURE: Maximal barrier technique was utilized. The skin overlying a suitable pocket of fluid was localized with ultrasound and the overlying skin was prepped and draped. Ultrasound was utilized with sterile technique. Lidocaine was used for local anesthesia and a skin gilbert made with a scalpel. Catheter was advanced under direct ultrasound guidance into a suitable pocket of fluid and approximately 2.4 liter s of serous fluid were removed. Catheter was withdrawn and hemostasis achieved. There is no immedia te complication; the patient is discharged in stable condition. IMPRESSION: STATUS POST ULTRASOUND GUIDED PARACENTESIS FOR PALLIATION OF ASCITES. THIS PROCEDURE WA S PERFORMED BY THE UNDERSIGNED.
--- NOTE | 2018-11-02 18:48 | OP ---
OPERATIVE REPORT OPERATION: Right-sided thoracentesis. PREOPERATIVE DIAGNOSIS: Recurrent right-sided pleural effusion. POSTOPERATIVE DIAGNOSIS: Recurrent right-sided pleural effusion. ANESTHESIA USED: Lidocaine 1%, 4 mL. PROCEDURE DESCRIPTION: The patient was placed in a sitting-upright position. The area below the right scapula was prepared in a sterile fashion and drapes were applied. The fluid was earlier localized by ultrasound guidance. Then at the same level, which was the eighth intercostal space and tip of the scapula, the area was locally anesthetized. A 26-gauge needle was inserted into the pleural space until fluid was localized. Then a small tiny incision was made, and the standard thoracentesis catheter and needle were inserted at the same site, advanced into the pleural space, and fluid was obtained. As soon as fluid was obtained, catheter was advanced out of the needle, and the needle was pulled out of the pleural space. However, after 400 mL of fluid drainage, we noticed that the catheter was getting kinked in the intercostal area, and it was removed. Another site was chosen. This time it was the ninth intercostal space and tip of the scapula. The area was locally anesthetized. Then fluid was localized with a needle and a small tiny incision was made at the same site. Standard thoracentesis catheter and needle were advanced into the right pleural space. Fluid was obtained. Catheter was advanced into the pleural space and the needle was pulled out. Approximately a total of 1900 slightly serosanguineous fluid was removed from the right pleural space. Fluid was discarded, since it had been sent previously to the lab. No evidence of any immediate complications. Chest x-ray was ordered postoperatively, and no evidence of pneumothorax. MMODL / IJN: [id number] /
[2018-11-03] MEDS: HYDROmorphone 0.5 MG/0.5 ML SYRINGE IVP PRN ×2 (00:04→06:14)
[2018-11-03] MEDS: IPRATROPIUM-ALBUTEROL 3 ML NEB INHALATION SCH ×3 (02:23→11:12)
[2018-11-03 06:05] VITALS: BP 99/58; TEMP 97.8
[2018-11-03] MEDS: FUROSEMIDE 10 MG/ML 4 ML VIAL IV SCH (06:14)
[2018-11-03] MEDS: methylPREDNISolone SOD SUCCI 125 MG/2 ML VIAL IV SCH (06:14)
[2018-11-03 07:22] VITALS: RESP 18
[2018-11-03 07:29] VITALS: PULSE 78
[2018-11-03] MEDS: METOPROLOL TARTRATE 25 MG TAB PO SCH (08:13)
[2018-11-03] MEDS: PANTOPRAZOLE 40 MG TABLET PO SCH (08:13)
[2018-11-03] MEDS: SPIRONOLACTONE 25 MG TAB PO SCH (08:13)
[2018-11-03] MEDS: CYCLOBENZAPRINE 10 MG TAB PO SCH (08:14)
[2018-11-03] MEDS: ASPIRIN 81 MG PO SCH (08:15)
[2018-11-03] MEDS: ENOXAPARIN 80 MG/0.8 ML SYRINGE SQ SCH (08:16)
--- NOTE | 2018-11-03 10:48 | P.DS ---
Providers Date of admission: 11/01/18 17:13 Expected date of discharge: 11/03/18 Attending physician: Andrews Escobar Consults: 11/01/18 17:15 Consult Physician Routine Consulting Provider: Oliverio Mc Consult Reason/Comments: chronic pleural effusion, SOB Do you want consulting provider notified?: Yes Primary care physician: Andrews Escobar Hospital Course: 63-year-old male was admitted to the emergency room with complaints of increasing shortness of breath. Patient does have has history of frequent paracentesis and thoracentesis. Patient has a history of cardiomyopathy coronary disease with CO EF of 20-25% chronic systolic congestive heart failure. Patient was evaluated by pulmonology and hadn't of thoracentesis for 1900 mL. Patient had interventionalists radiologists 2.4 L from abdomen with paracentesis. Patient states he feels much improved and ready to be discharged cleared by pulmonology Assessment Abdominal ascites acute on chronic Right pleural effusion acute on chronic Acute on chronic COPD with exacerbation History of atrial fibrillation History of coronary disease with CO cardiomyopathy Chronic congestive heart failure systolic dysfunction with EF of 20-25% history of recent PE GERD Plan Follow-up with pulmonology on regular schedule follow-up with family physician Dr. Andrews Escobar Patient Condition at Discharge: Stable Plan - Discharge Summary Discharge Rx Participant: No New Discharge Prescriptions: Continue Ipratropium-Albuterol Nebulize [Duoneb 0.5 mg-3 mg/3 ml Soln] 3 ml INHALATION RT-QID #120 ampul.neb Pantoprazole [Protonix] 40 mg PO AC-BRKFST #30 tablet. Albuterol Inhaler [Ventolin Hfa Inhaler] 2 puff INHALATION RT-Q4H PRN #1 puff PRN Reason: Shortness Of Breath Isosorbide Mononitrate ER [Imdur] 30 mg PO DAILY #30 tab.er.24h Nitroglycerin Sl Tabs [Nitrostat] 0.4 mg SUBLINGUAL Q5M PRN #100 tab PRN Reason: Chest Pain Ipratropium/Albuterol Sulfate [Combivent Respimat Inhaler] 2 puff INHALATION RT-QID Spironolactone [Aldactone] 50 mg PO BID #120 tab Aspirin [Adult Low Dose Aspirin EC] 162 mg PO DAILY Metoprolol Tartrate [Lopressor] 25 mg PO BID #60 tab Furosemide [Lasix] 40 mg PO DAILY #30 tab Cyclobenzaprine [Flexeril] 10 mg PO TID HYDROcodone/APAP 10-325MG [[place] 10-325] 1 tab PO Q4HR PRN PRN Reason: pain Budesonide-Formot 160-4.5 Mcg [Symbicort 160-4.5 Mcg Inhaler] 2 puff INHALATION RT-BID #1 puff Enoxaparin [Lovenox] 80 mg SQ Q12HR #60 syringe Discharge Medication List Albuterol Inhaler [Ventolin Hfa Inhaler] 2 puff INHALATION RT-Q4H PRN #1 puff 03/17/18 [Rx] Ipratropium-Albuterol Nebulize [Duoneb 0.5 mg-3 mg/3 ml Soln] 3 ml INHALATION RT-QID #120 ampul.neb 03/17/18 [Rx] Isosorbide Mononitrate ER [Imdur] 30 mg PO DAILY #30 tab.er.24h 03/17/18 [Rx] Nitroglycerin Sl Tabs [Nitrostat] 0.4 mg SUBLINGUAL Q5M PRN #100 tab 03/17/18 [ Rx] Pantoprazole [Protonix] 40 mg PO AC-BRKFST #30 tablet.dr 03/17/18 [Rx] Ipratropium/Albuterol Sulfate [Combivent Respimat Inhaler] 2 puff INHALATION RT- QID 05/08/18 [History] Spironolactone [Aldactone] 50 mg PO BID #120 tab 05/11/18 [Rx] Aspirin [Adult Low Dose Aspirin EC] 162 mg PO DAILY 06/27/18 [History] Metoprolol Tartrate [Lopressor] 25 mg PO BID #60 tab 07/12/18 [Rx] Furosemide [Lasix] 40 mg PO DAILY #30 tab 08/05/18 [Rx] Cyclobenzaprine [Flexeril] 10 mg PO TID 08/23/18 [History] HYDROcodone/APAP 10-325MG [[place] 10-325] 1 tab PO Q4HR PRN 08/23/18 [History] Budesonide-Formot 160-4.5 Mcg [Symbicort 160-4.5 Mcg Inhaler] 2 puff INHALATION RT-BID #1 puff 07/23/19 [Rx] Enoxaparin [Lovenox] 80 mg SQ Q12HR #60 syringe 10/05/18 [Rx] Follow up Appointment(s)/Referral(s): Andrews Escobar MD [Primary Care Provider] - 1-2 days Patient Instructions/Handouts: COPD (Chronic Obstructive Pulmonary Disease) (DC), Pleural Effusion (DC), Ascites (DC)
== END 2018-11-03 11:20 | disposition home or self-care (01) | DRG 291 ==
LOC: EC 13:02 → 3NMEDONC 17:13
PROVIDERS: ADMIT Family Medicine; ATTEND Family Medicine
PROC: 0W993ZZ Drainage of Right Pleural Cavity, Percutaneous Approach (ICD-10-PCS; principal; 2018-11-02)
DX: I11.0 Hypertensive heart disease with heart failure (principal); J96.21 Acute and chronic respiratory failure with hypoxia; J44.1 Chronic obstructive pulmonary disease with (acute) exacerbation; J91.8 Pleural effusion in other conditions classified elsewhere; R18.8 Other ascites; I50.43 Acute on chronic combined systolic (congestive) and diastolic (congestive) heart failure; I42.9 Cardiomyopathy, unspecified; E11.51 Type 2 diabetes mellitus with diabetic peripheral angiopathy without gangrene; E78.5 Hyperlipidemia, unspecified; F17.210 Nicotine dependence, cigarettes, uncomplicated; F32.9 Major depressive disorder, single episode, unspecified; F41.9 Anxiety disorder, unspecified; I25.10 Atherosclerotic heart disease of native coronary artery without angina pectoris; I25.2 Old myocardial infarction; I27.20 Pulmonary hypertension, unspecified; I48.2 Chronic atrial fibrillation; K21.9 Gastro-esophageal reflux disease without esophagitis; Z79.51 Long term (current) use of inhaled steroids; Z79.82 Long term (current) use of aspirin; Z79.899 Other long term (current) drug therapy; Z82.49 Family history of ischemic heart disease and other diseases of the circulatory system; Z83.3 Family history of diabetes mellitus; Z85.21 Personal history of malignant neoplasm of larynx; Z86.711 Personal history of pulmonary embolism; Z86.73 Personal history of transient ischemic attack (TIA), and cerebral infarction without residual deficits; Z92.3 Personal history of irradiation; Z95.5 Presence of coronary angioplasty implant and graft; Z88.5 Allergy status to narcotic agent; Z88.8 Allergy status to other drugs, medicaments and biological substances
CPT/HCPCS: 36415; 49083; 71045; 71046; 76604; 80053; 83735; 83880; 84484; 85025; 85610; 85730; 93005; 94640; 94760; 96374; 99285

== ENCOUNTER 2018-11-10 08:55 | Day surgery (SDC) | payer OTHER ==
[2018-11-10 09:45] LABS: Mean Platelet Volume 7.7; Platelet Count 270 k/uL (150-450)
[2018-11-10 09:56] LABS: INR 1.1 (<1.2); Prothrombin Time 11.1 sec (9.0-12.0)
[2018-11-10 10:00] LABS: African American GFR (CKD) >90 (>60 ml/min/1.73 sqM)
[2018-11-10 10:01] VITALS: RESP 18; TEMP 97.9
--- NOTE | 2018-11-10 10:45 | US ---
EXAMINATION TYPE: US abdomen limited DATE OF EXAM: 11/10/2018 COMPARISON: NONE CLINICAL HISTORY: to assess for fluid. pt scheduled for para in AM. Ascites check Abdominal ascites seen in all 4 quadrants with largest pocket in RLQ measuring 11.5cm IMPRESSION: Ascites
--- NOTE | 2018-11-10 10:49 | US ---
Ultrasound-guided therapeutic and diagnostic thoracentesis DATE OF EXAM: 11/10/2018 CLINICAL HISTORY: Right pleural effusion The procedure was discussed with the patient. The risks, complications, benefits, and alternatives we re discussed and any questions were answered. Informed consent was obtained. The patient was placed supine on the ultrasound table and prepped and draped in the usual sterile fas hion. All elements of maximal barrier and sterile technique were utilized. Under ultrasound guidance, access into the pleural space was obtained, via the thoracentesis catheter system and direct ultrasound guidance. Ap proximately 1.7 liters of straw-colored fluid was removed. The patient was stable throughout the procedure and remained stable upon discharge from Department of Radiology. IMPRESSION: 1. Successful therapeutic and diagnostic thoracentesis under ultrasound guidance.
--- NOTE | 2018-11-10 10:49 | XR ---
EXAMINATION TYPE: XR chest 1V DATE OF EXAM: 11/10/2018 COMPARISON: 11/04/2018 HISTORY: Post right thoracentesis TECHNIQUE: Single frontal view of the chest is obtained. FINDINGS: There is right lower lobe consolidation and small bilateral residual pleural effusions. He art is enlarged. A degree of chronic underlying venous congestion in the differential diagnosis. No p neumothorax. Surgical change overlying the cervical spine. Arthropathy of the shoulders. IMPRESSION: No pneumothorax post thoracentesis.
[2018-11-10 11:05] VITALS: BP 126/79; PULSE 91
== END 2018-11-10 10:50 | disposition home or self-care (01) ==
LOC: RADPROMAIN 08:55
PROVIDERS: ATTEND Family Medicine
DX: J90 Pleural effusion, not elsewhere classified (principal); R18.8 Other ascites
CPT/HCPCS: 32555; 36415; 71045; 76705; 82565; 85049; 85610

== ENCOUNTER 2018-11-11 08:58 | Day surgery (SDC) | payer OTHER ==
--- NOTE | 2018-08-05 16:44 | P.PCN ---
Date of Procedure: 08/04/18 Preoperative Diagnosis: Right-sided pleural effusion Postoperative Diagnosis: Right-sided pleural effusion Procedure(s) Performed: Thoracentesis Anesthesia: local Surgeon: Oliverio Mc Estimated Blood Loss (ml): 0 Pathology: none sent Condition: stable Disposition: floor Indications for Procedure: Dyspnea Operative Findings: A time-out was completed verifying correct patient, procedure, site, positioning , and implant (s) or special equipment if applicable. Ultrasound guidance was not used. Appropriate fluid pocket was identified and marked. Patient was positioned, prepped and draped in usual sterile fashion. Lidocaine was used to anesthetize the area. A thoracentesis catheter was introduced into the pleural space and fluid was removed. Blood loss was none. No complications. A chest x-ray was ordered to evaluate for pneumothorax. There was no pneumothorax, based on the follow-up chest x-ray. Total Fluid Removed: 1.2 L. Color of Fluid: Dark turbid yellowish.
[~2018-11-11 08:58] MED LIST changes: +IPRATROPIUM-ALBUTEROL 3 ML NEB ONE; -LACTATED RINGERS 1,000 ML IV SCH
[2018-11-11 09:28] VITALS: TEMP 97.5
[2018-11-11 10:28] VITALS: RESP 18
[2018-11-11 10:40] VITALS: BP 128/70; PULSE 91
--- NOTE | 2018-11-11 11:38 | US ---
Therapeutic paracentesis. DATE OF EXAM: 11/11/2018 CLINICAL HISTORY: Ascites The procedure was discussed with the patient. The risks, complications, benefits, and alternatives we re discussed and any questions were answered. Informed consent was obtained. The patient was placed s upine on the ultrasound table and prepped and draped in the usual sterile fashion. All elements of maximal barrier technique were utilized. Under ultrasound guidance, access into the right lower quadrant was obtained, via the paracentesis catheter system and direct ultrasound guidanc e. Approximately 1.5 liters of straw-colored fluid was removed. The patient was stable throughout the pr ocedure and remained stable upon discharge from Department of Radiology. IMPRESSION: Successful therapeutic paracentesis under ultrasound guidance.
== END 2018-11-11 10:50 | disposition home or self-care (01) ==
LOC: RADPROMAIN 08:58
PROVIDERS: ATTEND Internal Medicine Gastroenterology
DX: R18.8 Other ascites (principal)
CPT/HCPCS: 49083

== ENCOUNTER 2018-11-30 08:49 | Day surgery (SDC) | payer OTHER ==
[2018-11-30 09:14] VITALS: TEMP 98
[2018-11-30 09:19] LABS: Mean Platelet Volume 7.4; Platelet Count 210 k/uL (150-450)
[2018-11-30 09:32] LABS: Prothrombin Time 10.8 sec (9.0-12.0)
[2018-11-30 10:56] VITALS: BP 125/53; PULSE 75; RESP 22
--- NOTE | 2018-11-30 11:38 | XR ---
EXAMINATION TYPE: XR chest 1V portable DATE OF EXAM: 11/30/2018 COMPARISON: Prior chest x-ray 11/24/2018 HISTORY: Status post right thoracentesis TECHNIQUE: Single frontal view of the chest is obtained. FINDINGS: There is an improvement in aeration at the right lung base. No evident pneumothorax. Heart remains enlarged. Aorta is dense. Postop changes are noted in the cervical spine. IMPRESSION: No evident complication status post right thoracentesis
--- NOTE | 2018-11-30 13:46 | US ---
EXAMINATION TYPE: US thoracentesis DATE OF EXAM: 11/30/2018 COMPARISON: NONE HISTORY: Pleural effusion. FINDINGS: Maximal barrier technique was utilized. The skin overlying a suitable pocket of fluid was localized and the overlying skin prepped and draped. Lidocaine was used for local anesthesia. Ultras ound was used with sterile technique. A 5 [place] catheter over guide needle was advanced into the pl eural fluid collection using ultrasound guidance the catheter advanced, needle removed. Approximatel y 1.9 liter(s) of serous fluid was removed. Catheter was withdrawn and hemostasis achieved. There i s no immediate complication. The patient discharged in stable condition without complication. IMPRESSION: STATUS POST ULTRASOUND GUIDED THORACENTESIS, POST PROCEDURE CHEST X-RAY PENDING. THIS [place] OCEDURE WAS PERFORMED BY THE UNDERSIGNED.
== END 2018-11-30 11:12 | disposition home or self-care (01) ==
LOC: RADPROMAIN 08:49
PROVIDERS: ATTEND Internal Medicine
DX: J90 Pleural effusion, not elsewhere classified (principal)
CPT/HCPCS: 32555; 71045; 85049; 85610

== ENCOUNTER 2018-12-04 10:26 | Inpatient (IN) | payer OTHER ==
[2018-12-04] MEDS ORDERED: ASPIRIN 81 MG PO STA (10:48)
[2018-12-04] MEDS ORDERED: NITROGLYCERIN OINT 1 INCH/GM PACKET TOPICAL STA (10:48)
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
[2018-12-04 11:06] LABS: Anisocytosis Slight; Basophils % (A) 1 %; Eosinophils # (A) 0.1 k/uL (0-0.7); Eosinophils % (A) 2 %; HCT 39.3 % (39.0-53.0); HGB 12.2 gm/dL (13.0-17.5); Hypochromasia Moderate; Lymphocytes # (A) 0.5 k/uL (1.0-4.8); Lymphocytes % (A) 9 %; MCH 27.3 pg (25.0-35.0); MCHC 31.1 g/dL (31.0-37.0); MCV 87.8 fL (80.0-100.0); Monocytes # (A) 0.6 k/uL (0-1.0); Monocytes % (A) 9 %; Neutrophils # (A) 4.6 k/uL (1.3-7.7); Neutrophils % (A) 77 %; Platelet Count 264 k/uL (150-450); RBC 4.48 m/uL (4.30-5.90); RDW 17.8 % (11.5-15.5)
[2018-12-04 11:15] LABS: INR 1.1 (<1.2); Partial Thromboplastin Time 28.3 sec (22.0-30.0); Prothrombin Time 11.4 sec (9.0-12.0)
[2018-12-04 11:16] LABS: African American GFR (CKD) >90 (>60 ml/min/1.73 sqM); Albumin 3.3 g/dL (3.5-5.0); Anion Gap 7 mmol/L; Blood Urea Nitrogen 17 mg/dL (9-20); Calcium 8.7 mg/dL (8.4-10.2); Carbon Dioxide 26 mmol/L (22-30); Chloride 104 mmol/L (98-107); Glucose 88 mg/dL (74-99); Sodium 137 mmol/L (137-145); Total Bilirubin 1.3 mg/dL (0.2-1.3); Total Protein 6.5 g/dL (6.3-8.2)
--- NOTE | 2018-12-04 11:23 | XR ---
EXAMINATION TYPE: XR chest 2V DATE OF EXAM: 12/04/2018 HISTORY: Chest Pain. REFERENCE: Previous study dated 11/30/2018. FINDINGS: The heart is enlarged. The lungs are overinflated. There is worsening right-sided effusion. There is concomitant airspace disease. IMPRESSION: 1. COPD. 2. CARDIOMEGALY. 3. WORSENING RIGHT BASILAR AIRSPACE DISEASE WITH AN ASSOCIATED EFFUSION.
[2018-12-04 11:28] LABS: Potassium 4.7 mmol/L (3.5-5.1)
[2018-12-04 11:29] LABS: ALT 32 U/L (21-72); AST 48 U/L (17-59); Alkaline Phosphatase 345 U/L (38-126); Magnesium 1.9 mg/dL (1.6-2.3)
[2018-12-04] MEDS ORDERED: IPRATROPIUM-ALBUTEROL 3 ML NEB INHALATION STA (12:00)
[2018-12-04] MEDS ORDERED: HYDROmorphone 0.5 MG/0.5 ML SYRINGE IVP STA (12:00)
[2018-12-04] MEDS ORDERED: DOCUSATE 100 MG CAP PO PRN (15:04)
[2018-12-04] MEDS ORDERED: NITROGLYCERIN SL TABS 0.4 MG TAB SUBLINGUAL PRN (15:04)
[2018-12-04] MEDS ORDERED: CALCIUM CARBONATE 500 MG CHEWABLE PO PRN (15:04)
[2018-12-04] MEDS: HYDROcodone/APAP 10-325MG 1 EACH TAB PO PRN ×2 (15:21→20:49)
[2018-12-04] MEDS: FUROSEMIDE 40 MG TAB PO SCH (15:21)
[2018-12-04] MEDS: ISOSORBIDE MONONITRATE ER 30 MG TAB.ER.24H PO SCH (15:21)
[2018-12-04] MEDS: CYCLOBENZAPRINE 10 MG TAB PO SCH ×2 (15:21→23:25)
[2018-12-04] MEDS ORDERED: IPRATROPIUM INHALATION SCH (16:00)
[2018-12-04] MEDS ORDERED: ALBUTEROL SULFATE INHALATION SCH (16:00)
[2018-12-04] MEDS: IPRATROPIUM-ALBUTEROL 3 ML NEB INHALATION SCH ×2 (16:07→21:38)
[2018-12-04] MEDS: SPIRONOLACTONE 25 MG TAB PO SCH (20:51)
[2018-12-04] MEDS: METOPROLOL TARTRATE 25 MG TAB PO SCH (20:51)
[2018-12-04] MEDS ORDERED: ENOXAPARIN 80 MG/0.8 ML SYRINGE SQ SCH (21:00)
[2018-12-04] MEDS: SYMBICORT 160-4.5 MCG INHALER INHALATION SCH (21:38)
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
[2018-12-05] MEDS: ALBUTEROL NEBULIZED 2.5 MG/3 ML INHALATION PRN ×2 (00:12→03:37)
[2018-12-05 06:09] LABS: Anisocytosis Slight; Basophils % (A) 1 %; Eosinophils # (A) 0.2 k/uL (0-0.7); Eosinophils % (A) 4 %; HCT 38.7 % (39.0-53.0); HGB 11.6 gm/dL (13.0-17.5); Hypochromasia Marked; Lymphocytes # (A) 0.5 k/uL (1.0-4.8); Lymphocytes % (A) 10 %; MCH 27.1 pg (25.0-35.0); MCHC 30.1 g/dL (31.0-37.0); MCV 90.1 fL (80.0-100.0); Mean Platelet Volume 7.5; Monocytes # (A) 0.5 k/uL (0-1.0); Monocytes % (A) 10 %; Neutrophils # (A) 3.6 k/uL (1.3-7.7); Neutrophils % (A) 73 %; Platelet Count 294 k/uL (150-450); RBC 4.29 m/uL (4.30-5.90); RDW 18.2 % (11.5-15.5); WBC 4.9 k/uL (3.8-10.6)
[2018-12-05] MEDS: PANTOPRAZOLE 40 MG TABLET PO SCH (06:21)
[2018-12-05 07:04] LABS: African American GFR (CKD) >90 (>60 ml/min/1.73 sqM); Anion Gap 7 mmol/L; Blood Urea Nitrogen 18 mg/dL (9-20); Calcium 8.4 mg/dL (8.4-10.2); Carbon Dioxide 27 mmol/L (22-30); Chloride 104 mmol/L (98-107); Glucose 92 mg/dL (74-99); Potassium 4.3 mmol/L (3.5-5.1); Sodium 138 mmol/L (137-145)
[2018-12-05] MEDS: SYMBICORT 160-4.5 MCG INHALER INHALATION SCH ×2 (08:22→19:55)
[2018-12-05] MEDS: IPRATROPIUM-ALBUTEROL 3 ML NEB INHALATION SCH ×4 (08:22→19:54)
[2018-12-05] MEDS: SPIRONOLACTONE 25 MG TAB PO SCH ×2 (09:19→20:39)
[2018-12-05] MEDS: FUROSEMIDE 40 MG TAB PO SCH (09:19)
[2018-12-05] MEDS: CYCLOBENZAPRINE 10 MG TAB PO SCH ×3 (09:19→20:39)
[2018-12-05] MEDS: METOPROLOL TARTRATE 25 MG TAB PO SCH ×2 (11:17→20:40)
[2018-12-05] MEDS: HYDROcodone/APAP 10-325MG 1 EACH TAB PO PRN (11:23)
--- NOTE | 2018-12-05 12:22 | P.PN ---
Subjective Patient resting in bed continues complaining of shortness of breath. Patient states he feels he needs to have his paracentesis. Ultrasound ordered for chest and abdomen. Patient discussed he may want comfort care Objective - Vital Signs Vital signs: Vital Signs Temp 97.4 F L 12/05/18 11:11 Pulse 88 12/05/18 11:35 Resp 16 12/05/18 11:11 BP 107/68 12/05/18 11:11 Pulse Ox 96 12/05/18 11:11 Intake & Output 12/04/18 12/05/18 12/05/18 18:59 06:59 18:59 Intake Total 200 240 Balance 200 240 Weight 81.647 kg 81.8 kg Intake: Oral 200 240 Other: Voiding Method Toilet # Voids 2 1 - Constitutional General appearance: Present: mild distress - EENT Eyes: Present: PERRLA Ears: bilateral: normal - Neck Neck: Present: normal ROM - Respiratory Respiratory: right: diminished, bilateral: wheezing - Cardiovascular Rhythm: regular - Gastrointestinal General gastrointestinal: Present: distended, tenderness - Integumentary Integumentary: Present: normal - Neurologic Neurologic: Present: CNII-XII intact - Musculoskeletal Musculoskeletal: Present: generalized weakness - Psychiatric Psychiatric: Present: A&O x's 3, appropriate affect, intact judgment & insight - Labs CBC & Chem 7: 12/05/18 05:32 12/05/18 05:32 Labs: Abnormal Lab Results - Last 24 Hours (Table) 12/05/18 Range/Units 05:32 RBC 4.29 L (4.30-5.90) m/uL Hgb 11.6 L (13.0-17.5) gm/dL Hct 38.7 L (39.0-53.0) % MCHC 30.1 L (31.0-37.0) g/dL RDW 18.2 H (11.5-15.5) % Lymphocytes # 0.5 L (1.0-4.8) k/uL - Imaging and Cardiology Chest x-ray: report reviewed Assessment and Plan Plan: Assessment Chronic persistent right pleural effusion abdominal ascites Acute on chronic congestive heart failure systolic dysfunction EF 20-25% with ischemic cardiomyopathy Recent pulmonary embolism Chronic lower extremity edema History of laryngeal cancer Hypertension Hyperlipidemia Diabetes type 2 History of coronary disease with stenting Acute on chronic COPD Plan Assessment by pulmonology Abdominal ultrasound ordered for interventional radiology
--- NOTE | 2018-12-05 12:56 | US ---
EXAMINATION TYPE: US chest DATE OF EXAM: 12/05/2018 COMPARISON: NONE CLINICAL HISTORY: right pleural effusion. Right pleural effusion TECHNIQUE: Targeted ultrasound of the posterior lower right hemithorax EXAM MEASUREMENTS: Right Pleural Effusion pocket size: 13.2 cm Right skin surface to fluid distance: 2.1 cm Right side MARKED for possible thoracentesis outside the dept. Pulmonologists are able to review the images in the patient?s EMR. IMPRESSIONS: Large right pleural effusion
--- NOTE | 2018-12-05 13:33 | US ---
EXAMINATION TYPE: US abdomen limited DATE OF EXAM: 12/05/2018 COMPARISON: NONE CLINICAL HISTORY: chronic abd ascites. Ascites. Ascites is visualized. Ultrasound performed in all 4 quadrants of the abdomen. IMPRESSION: Moderate ascites
[2018-12-05] MEDS: ISOSORBIDE MONONITRATE ER 30 MG TAB.ER.24H PO SCH (15:36)
[2018-12-05] MEDS: HYDROmorphone 0.5 MG/0.5 ML SYRINGE IVP PRN ×2 (15:53→22:18)
[2018-12-05] MEDS: ASPIRIN 81 MG PO SCH (17:01)
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
[2018-12-05] MEDS: methylPREDNISolone SOD SUCCI 125 MG/2 ML VIAL IV SCH (17:16)
[2018-12-06] MEDS: methylPREDNISolone SOD SUCCI 125 MG/2 ML VIAL IV SCH ×4 (00:30→21:08)
[2018-12-06] MEDS: HYDROcodone/APAP 10-325MG 1 EACH TAB PO PRN ×3 (02:58→21:40)
[2018-12-06] MEDS ORDERED: ONDANSETRON 4 MG TAB PO PRN (04:44)
[2018-12-06] MEDS: HYDROmorphone 0.5 MG/0.5 ML SYRINGE IVP PRN ×4 (05:05→22:35)
[2018-12-06] MEDS: IPRATROPIUM-ALBUTEROL 3 ML NEB INHALATION SCH ×4 (06:18→21:57)
[2018-12-06] MEDS: SYMBICORT 160-4.5 MCG INHALER INHALATION SCH ×2 (06:18→21:57)
[2018-12-06] MEDS: PANTOPRAZOLE 40 MG TABLET PO SCH (06:51)
[2018-12-06] MEDS: METOPROLOL TARTRATE 25 MG TAB PO SCH ×2 (08:27→21:39)
[2018-12-06] MEDS: FUROSEMIDE 40 MG TAB PO SCH (08:27)
[2018-12-06] MEDS: ISOSORBIDE MONONITRATE ER 30 MG TAB.ER.24H PO SCH (08:27)
[2018-12-06] MEDS: SPIRONOLACTONE 25 MG TAB PO SCH ×2 (08:27→21:40)
[2018-12-06] MEDS: ASPIRIN 81 MG PO SCH (08:28)
[2018-12-06] MEDS: CYCLOBENZAPRINE 10 MG TAB PO SCH ×3 (08:28→21:40)
--- NOTE | 2018-12-06 11:56 | P.PN ---
Subjective Patient had ultrasound of abdomen and chest plan for thoracentesis and paracentesis today. Discussed further treatment with patient patient says that he wants to live and will continue with paracentesis and thoracentesis Objective - Vital Signs Vital signs: Vital Signs Temp 97.9 F 12/06/18 08:00 Pulse 79 12/06/18 08:00 Resp 22 12/06/18 11:36 BP 100/65 12/06/18 11:36 Pulse Ox 90 L 12/06/18 11:36 Intake & Output 12/05/18 12/06/18 12/06/18 18:59 06:59 18:59 Intake Total 600 708 240 Output Total 300 Balance 600 408 240 Weight 81.2 kg Intake: Oral 600 708 240 Output: Urine 300 Other: Voiding Method Toilet Toilet # Voids 1 4 - Constitutional General appearance: Present: mild distress - EENT Eyes: Present: PERRLA Ears: bilateral: normal - Neck Neck: Present: normal ROM - Respiratory Details: pleural rub noted Respiratory: bilateral: diminished - Cardiovascular Rhythm: irregularly irregular Abnormal Heart Sounds: Present: systolic murmur - Gastrointestinal General gastrointestinal: Present: decreased bowel sounds, distended - Integumentary Integumentary: Present: normal - Neurologic Neurologic: Present: CNII-XII intact - Musculoskeletal Musculoskeletal: Present: generalized weakness - Labs CBC & Chem 7: 12/05/18 05:32 12/05/18 05:32 Assessment and Plan Plan: Assessment Recurrent pleural effusion Recurrent abdominal ascites with paracentesis history of recent pulmonary embolus Acute on chronic congestive heart failure systolic dysfunction ejection fraction 20% with ischemic cardiomyopathy Chronic lower extremity edema History of laryngeal cancer Hyper lipidemia Hypertension Diabetes type 2 History of coronary disease with stents Chronic ongoing history of smoking COPD acute on chronic Plan Paracentesis and thoracentesis today
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
--- NOTE | 2018-12-06 12:54 | US ---
Therapeutic paracentesis. DATE OF EXAM: 12/06/2018 CLINICAL HISTORY: Ascites The procedure was discussed with the patient. The risks, complications, benefits, and alternatives we re discussed and any questions were answered. Informed consent was obtained. The patient was placed s upine on the ultrasound table and prepped and draped in the usual sterile fashion. All elements of maximal barrier technique were utilized. Under ultrasound guidance, access into the right lower quadrant was obtained, via the paracentesis catheter system and direct ultrasound guidanc e. Approximately 1.8 liters of straw-colored fluid was removed. The patient was stable throughout the pr ocedure and remained stable upon discharge from Department of Radiology. IMPRESSION: Successful therapeutic paracentesis under ultrasound guidance.
[2018-12-06] MEDS: ALBUTEROL NEBULIZED 2.5 MG/3 ML INHALATION PRN (17:08)
[2018-12-07] MEDS: methylPREDNISolone SOD SUCCI 125 MG/2 ML VIAL IV SCH ×5 (00:49→23:58)
[2018-12-07] MEDS: ALBUTEROL NEBULIZED 2.5 MG/3 ML INHALATION PRN ×2 (03:45→23:59)
[2018-12-07] MEDS: PANTOPRAZOLE 40 MG TABLET PO SCH (05:02)
[2018-12-07] MEDS: HYDROmorphone 0.5 MG/0.5 ML SYRINGE IVP PRN ×3 (05:02→20:04)
[2018-12-07] MEDS: HYDROcodone/APAP 10-325MG 1 EACH TAB PO PRN ×2 (06:51→23:57)
[2018-12-07] MEDS: IPRATROPIUM-ALBUTEROL 3 ML NEB INHALATION SCH ×4 (08:04→20:23)
[2018-12-07] MEDS: SYMBICORT 160-4.5 MCG INHALER INHALATION SCH ×2 (08:04→20:23)
[2018-12-07] MEDS: ISOSORBIDE MONONITRATE ER 30 MG TAB.ER.24H PO SCH (09:07)
[2018-12-07] MEDS: FUROSEMIDE 40 MG TAB PO SCH (09:07)
[2018-12-07] MEDS: ASPIRIN 81 MG PO SCH (09:07)
[2018-12-07] MEDS: METOPROLOL TARTRATE 25 MG TAB PO SCH ×2 (09:07→20:03)
[2018-12-07] MEDS: CYCLOBENZAPRINE 10 MG TAB PO SCH ×3 (09:08→23:57)
[2018-12-07] MEDS: SPIRONOLACTONE 25 MG TAB PO SCH ×2 (09:08→20:03)
--- NOTE | 2018-12-07 12:44 | P.PN ---
Subjective Principal diagnosis: Patient resting in bed awaiting thoracentesis. CODE STATUS discussed patient does not want to be intubated. Wishes to continue present therapy of paracentesis and thoracentesis Objective - Vital Signs Vital signs: Vital Signs Temp 97.1 F L 12/07/18 08:25 Pulse 90 12/07/18 11:50 Resp 18 12/07/18 11:50 BP 106/60 12/07/18 11:50 Pulse Ox 99 12/07/18 11:50 Intake & Output 12/06/18 12/07/18 12/07/18 18:59 06:59 18:59 Intake Total 1280 360 120 Output Total 300 600 Balance 980 -240 120 Weight 81.2 kg 82.1 kg Intake: Oral 1280 360 120 Output: Urine 300 600 Other: Voiding Method Toilet Toilet # Voids 4 3 - Constitutional General appearance: Present: mild distress - EENT Eyes: Present: PERRLA Ears: bilateral: normal - Neck Neck: Present: normal ROM - Respiratory Details: Pleural rub noted Respiratory: bilateral: diminished, wheezing - Cardiovascular Rhythm: regular Abnormal Heart Sounds: Present: systolic murmur - Gastrointestinal General gastrointestinal: Present: distended - Integumentary Integumentary: Present: normal - Neurologic Neurologic: Present: CNII-XII intact - Musculoskeletal Musculoskeletal: Present: generalized weakness - Psychiatric Psychiatric Comment(s): Depressed demeanor Psychiatric: Present: A&O x's 3, intact judgment & insight - Labs CBC & Chem 7: 12/05/18 05:32 12/05/18 05:32 Assessment and Plan Plan: Assessment Recurrent right-sided pleural effusion history of multiple paracentesis chronic ascites requiring frequent paracentesis Acute on chronic congestive heart failure systolic dysfunction with EF of 20% ischemic cardiomyopathy recent pulmonary embolus Lower extremity edema History of laryngeal cancer hypertension Hyperlipidemia Diabetes type 2 coronary disease with stenting chronic ongoing history of smoking Plan thoracentesis hopeful discharge home soon Discussed calling interventional radiologist if he has shortness of breath or in creased girth
--- NOTE | 2018-12-07 15:51 | XR ---
EXAMINATION TYPE: XR chest 1V DATE OF EXAM: 12/07/2018 COMPARISON: 12/04/2018 HISTORY: Post right thoracentesis TECHNIQUE: Single frontal view of the chest is obtained. FINDINGS: Bilateral consolidation and pleural effusion. No sizable pneumothorax. Heart prominent. At herosclerotic change aorta. Postsurgical change overlying the cervical spine. IMPRESSION: Bilateral consolidation and pleural effusion.
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
--- NOTE | 2018-12-07 18:02 | OP ---
OPERATIVE REPORT PROCEDURE: Right-sided thoracentesis PREOPERATIVE DIAGNOSIS: Right-sided pleural effusion. POSTOPERATIVE DIAGNOSIS: Right-sided pleural effusion. A time-out was completed verifying correct patient, procedure, site, positioning , and implant (s) or special equipment if applicable. Ultrasound guidance was used and appropriate fluid pocket was identified and marked. Patient was positioned, prepped and draped in usual sterile fashion. Lidocaine was used to anesthetize the area. A Thoracentesis catheter was introduced into the pleural space and fluid was removed. Blood loss was none. A chest x-ray was ordered to evaluate for pneumothorax: No pneumothorax. Total Fluid Removed: 1.2 L. Color of Fluid: Turbid dark yellowish. Patient tolerated the procedure well and there were no complications. MMODL / IJN: [id number] /
[2018-12-08] MEDS: ALBUTEROL NEBULIZED 2.5 MG/3 ML INHALATION PRN (03:38)
[2018-12-08] MEDS: HYDROmorphone 0.5 MG/0.5 ML SYRINGE IVP PRN (03:47)
[2018-12-08 05:38] VITALS: RESP 20
[2018-12-08] MEDS: PANTOPRAZOLE 40 MG TABLET PO SCH (06:30)
[2018-12-08] MEDS: methylPREDNISolone SOD SUCCI 125 MG/2 ML VIAL IV SCH ×2 (06:31→11:43)
[2018-12-08 08:33] VITALS: TEMP 97.3
[2018-12-08] MEDS: ISOSORBIDE MONONITRATE ER 30 MG TAB.ER.24H PO SCH (08:36)
[2018-12-08] MEDS: ASPIRIN 81 MG PO SCH (08:36)
[2018-12-08] MEDS: FUROSEMIDE 40 MG TAB PO SCH (08:36)
[2018-12-08] MEDS: SYMBICORT 160-4.5 MCG INHALER INHALATION SCH (08:56)
[2018-12-08] MEDS: IPRATROPIUM-ALBUTEROL 3 ML NEB INHALATION SCH ×2 (08:56→12:27)
[2018-12-08 11:39] VITALS: BP 99/65
--- NOTE | 2018-12-08 11:39 | P.DS ---
Providers Date of admission: 12/04/18 12:40 Expected date of discharge: 12/08/18 Attending physician: Andrews Escobar Consults: 12/04/18 12:40 Consult Physician Urgent Consulting Provider: Oliverio Mc Consult Reason/Comments: Pleural effusion Do you want consulting provider notified?: Yes Primary care physician: Andrews Escobar Hospital Course: 63-year-old male comes with recurrent pleural effusion and minimal abdominal ascites with frequent thoracentesis and paracentesis. Patient had thoracentesis and paracentesis states he feels improved. We have discussed wanting comfort care or hospice care patient states he wishes to be treated at this time. Patient did state he did not want to be intubated Assessment Recurrent right-sided pleural effusion with multiple thoracentesis Chronic abdominal ascites with frequent paracentesis Acute on chronic congestive heart failure with systolic dysfunction EF 20% with ischemic cardiomyopathy recent history of pulmonary embolism Chronic lower extremity edema History of laryngeal cancer Hypertension hyperlipidemia Diabetes type 2 History of coronary disease with previous stents Chronic and ongoing history of smoking Plan Follow-up with family physician Dr. Andrews Escobar Contact interventionalists radiologist if thoracentesis is needed Plan - Discharge Summary Discharge Rx Participant: Yes New Discharge Prescriptions: Continue Ipratropium-Albuterol Nebulize [Duoneb 0.5 mg-3 mg/3 ml Soln] 3 ml INHALATION RT-QID #120 ampul.neb Pantoprazole [Protonix] 40 mg PO AC-BRKFST #30 tablet. Albuterol Inhaler [Ventolin Hfa Inhaler] 2 puff INHALATION RT-Q4H PRN #1 puff PRN Reason: Shortness Of Breath Isosorbide Mononitrate ER [Imdur] 30 mg PO DAILY #30 tab.er.24h Nitroglycerin Sl Tabs [Nitrostat] 0.4 mg SUBLINGUAL Q5M PRN #100 tab PRN Reason: Chest Pain Ipratropium/Albuterol Sulfate [Combivent Respimat Inhaler] 2 puff INHALATION RT-QID Spironolactone [Aldactone] 50 mg PO BID #120 tab Aspirin [Adult Low Dose Aspirin EC] 162 mg PO DAILY Furosemide [Lasix] 40 mg PO DAILY #30 tab Cyclobenzaprine [Flexeril] 10 mg PO TID HYDROcodone/APAP 10-325MG [[place] 10-325] 1 tab PO Q4HR PRN PRN Reason: pain Budesonide-Formot 160-4.5 Mcg [Symbicort 160-4.5 Mcg Inhaler] 2 puff INHALATION RT-BID #1 puff Enoxaparin [Lovenox] 80 mg SQ Q12HR #60 syringe Metoprolol Tartrate [Lopressor] 75 mg PO BID Docusate [Colace] 100 mg PO BID PRN cap PRN Reason: Constipation Calcium Carbonate [Tums] 1,000 mg PO Q4HR PRN chew PRN Reason: Dyspepsia Discharge Medication List Albuterol Inhaler [Ventolin Hfa Inhaler] 2 puff INHALATION RT-Q4H PRN #1 puff 03/17/18 [Rx] Ipratropium-Albuterol Nebulize [Duoneb 0.5 mg-3 mg/3 ml Soln] 3 ml INHALATION RT-QID #120 ampul.neb 03/17/18 [Rx] Isosorbide Mononitrate ER [Imdur] 30 mg PO DAILY #30 tab.er.24h 03/17/18 [Rx] Nitroglycerin Sl Tabs [Nitrostat] 0.4 mg SUBLINGUAL Q5M PRN #100 tab 03/17/18 [Rx] Pantoprazole [Protonix] 40 mg PO AC-BRKFST #30 tablet.dr 03/17/18 [Rx] Ipratropium/Albuterol Sulfate [Combivent Respimat Inhaler] 2 puff INHALATION RT- QID 05/08/18 [History] Spironolactone [Aldactone] 50 mg PO BID #120 tab 05/11/18 [Rx] Aspirin [Adult Low Dose Aspirin EC] 162 mg PO DAILY 06/27/18 [History] Furosemide [Lasix] 40 mg PO DAILY #30 tab 08/05/18 [Rx] Cyclobenzaprine [Flexeril] 10 mg PO TID 08/23/18 [History] HYDROcodone/APAP 10-325MG [[place] 10-325] 1 tab PO Q4HR PRN 08/23/18 [History] Budesonide-Formot 160-4.5 Mcg [Symbicort 160-4.5 Mcg Inhaler] 2 puff INHALATION RT-BID #1 puff 10/04/18 [Rx] Enoxaparin [Lovenox] 80 mg SQ Q12HR #60 syringe 10/05/18 [Rx] Metoprolol Tartrate [Lopressor] 75 mg PO BID 11/10/18 [History] Calcium Carbonate [Tums] 1,000 mg PO Q4HR PRN chew 11/24/18 [Rx] Docusate [Colace] 100 mg PO BID PRN cap 11/24/18 [Rx] Follow up Appointment(s)/Referral(s): Andrews Escobar MD [Primary Care Provider] - 12/13/18 10:10 am Oliverio Mc MD [STAFF PHYSICIAN] - 1 Week
[2018-12-08] MEDS: CYCLOBENZAPRINE 10 MG TAB PO SCH (11:42)
[2018-12-08] MEDS: METOPROLOL TARTRATE 25 MG TAB PO SCH (11:59)
[2018-12-08] MEDS: SPIRONOLACTONE 25 MG TAB PO SCH (11:59)
[2018-12-08 12:39] VITALS: PULSE 84
[2018-12-08 13:06] VITALS: BMI 27.2
== END 2018-12-08 14:15 | disposition home or self-care (01) | DRG 292 ==
LOC: EC 10:26 → 3SCARD 12:40
PROVIDERS: ADMIT Family Medicine; ATTEND Family Medicine
PROC: 0W9G3ZZ Drainage of Peritoneal Cavity, Percutaneous Approach (ICD-10-PCS; principal; 2018-12-06)
PROC: 0W993ZZ Drainage of Right Pleural Cavity, Percutaneous Approach (ICD-10-PCS; 2018-12-07)
DX: I11.0 Hypertensive heart disease with heart failure (principal); J44.1 Chronic obstructive pulmonary disease with (acute) exacerbation; J91.8 Pleural effusion in other conditions classified elsewhere; R18.8 Other ascites; I50.43 Acute on chronic combined systolic (congestive) and diastolic (congestive) heart failure; E11.51 Type 2 diabetes mellitus with diabetic peripheral angiopathy without gangrene; E78.5 Hyperlipidemia, unspecified; F17.210 Nicotine dependence, cigarettes, uncomplicated; F32.9 Major depressive disorder, single episode, unspecified; F41.9 Anxiety disorder, unspecified; I25.10 Atherosclerotic heart disease of native coronary artery without angina pectoris; I25.2 Old myocardial infarction; I25.5 Ischemic cardiomyopathy; Z86.718 Personal history of other venous thrombosis and embolism; Z86.711 Personal history of pulmonary embolism; Z79.01 Long term (current) use of anticoagulants; I27.29 Other secondary pulmonary hypertension; I48.2 Chronic atrial fibrillation; I49.3 Ventricular premature depolarization; I69.334 Monoplegia of upper limb following cerebral infarction affecting left non-dominant side; K21.9 Gastro-esophageal reflux disease without esophagitis; K43.9 Ventral hernia without obstruction or gangrene; K57.90 Diverticulosis of intestine, part unspecified, without perforation or abscess without bleeding; Z79.4 Long term (current) use of insulin; Z79.51 Long term (current) use of inhaled steroids; Z79.82 Long term (current) use of aspirin; Z79.899 Other long term (current) drug therapy; Z82.49 Family history of ischemic heart disease and other diseases of the circulatory system; Z83.3 Family history of diabetes mellitus; Z85.21 Personal history of malignant neoplasm of larynx; Z92.3 Personal history of irradiation; Z95.5 Presence of coronary angioplasty implant and graft; Z87.81 Personal history of (healed) traumatic fracture; Z84.89 Family history of other specified conditions; R13.10 Dysphagia, unspecified
CPT/HCPCS: 36415; 49083; 71045; 71046; 76604; 76705; 80048; 80053; 83735; 84484; 85025; 85610; 85730; 93005; 94640; 94760; 96374; 99285

== ENCOUNTER 2018-12-16 08:46 | Day surgery (SDC) | payer OTHER ==
[2018-12-16 09:21] LABS: Mean Platelet Volume 6.5; Platelet Count 234 k/uL (150-450)
[2018-12-16 09:27] LABS: INR 1.2 (<1.2); Prothrombin Time 12.3 sec (9.0-12.0)
[2018-12-16 09:43] VITALS: TEMP 97.6
[2018-12-16 10:42] VITALS: BP 119/79; PULSE 105; RESP 16
--- NOTE | 2018-12-16 10:54 | XR ---
EXAMINATION TYPE: XR chest 1V portable DATE OF EXAM: 12/16/2018 COMPARISON: 12/07/2018 INDICATION: Right thoracentesis TECHNIQUE: Single frontal view of the chest is obtained. FINDINGS: The heart size is only prominent. The pulmonary vasculature is normal. There is a small residual right pleural effusion. This is diminished from comparison postthoracentesi s. No pneumothorax is evident IMPRESSION: 1. No pneumothorax postthoracentesis. 2. Small diminished right pleural effusion
--- NOTE | 2018-12-16 11:15 | US ---
Ultrasound-guided therapeutic and diagnostic thoracentesis DATE OF EXAM: 12/16/2018 CLINICAL HISTORY: Right pleural effusion The procedure was discussed with the patient. The risks, complications, benefits, and alternatives we re discussed and any questions were answered. Informed consent was obtained. The patient was placed supine on the ultrasound table and prepped and draped in the usual sterile fas hion. All elements of maximal barrier and sterile technique were utilized. Under ultrasound guidance, access into the pleural space was obtained, via the thoracentesis catheter system and direct ultrasound guidance. Ap proximately 2 liters of straw-colored fluid was removed. The patient was stable throughout the procedure and remained stable upon discharge from Department of Radiology. IMPRESSION: 1. Successful therapeutic and diagnostic thoracentesis under ultrasound guidance.
== END 2018-12-16 10:50 | disposition home or self-care (01) ==
LOC: RADPROMAIN 08:46
PROVIDERS: ATTEND Internal Medicine
DX: J90 Pleural effusion, not elsewhere classified (principal)
CPT/HCPCS: 32555; 36415; 71045; 85049; 85610

== ENCOUNTER 2018-12-19 19:37 | Inpatient (IN) | payer OTHER ==
[2018-12-19] MEDS ORDERED: MORPHINE SULFATE 4 MG/ML SYRINGE IVP STA (19:52)
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
[2018-12-19 20:18] LABS: Anisocytosis Slight; Basophils % (A) 0 %; Eosinophils # (A) 0.1 k/uL (0-0.7); Eosinophils % (A) 1 %; HCT 43.4 % (39.0-53.0); HGB 13.5 gm/dL (13.0-17.5); Hypochromasia Marked; Lymphocytes # (A) 0.5 k/uL (1.0-4.8); Lymphocytes % (A) 6 %; MCH 27.5 pg (25.0-35.0); MCV 88.8 fL (80.0-100.0); Mean Platelet Volume 6.7; Monocytes # (A) 0.6 k/uL (0-1.0); Monocytes % (A) 7 %; Neutrophils % (A) 85 %; Platelet Count 215 k/uL (150-450); RBC 4.89 m/uL (4.30-5.90); RDW 17.4 % (11.5-15.5); WBC 8.3 k/uL (3.8-10.6)
[2018-12-19] MEDS ORDERED: PANTOPRAZOLE 40 MG/10 ML VIAL IVP STA (20:22)
[2018-12-19] MEDS ORDERED: IPRATROPIUM-ALBUTEROL 3 ML NEB INHALATION STA (20:22)
[2018-12-19] MEDS ORDERED: DILTIAZEM 5 MG/ML 5 ML VIAL IVP STA (20:22)
[2018-12-19] MEDS ORDERED: LORazepam 2 MG/ML INJ IV STA (20:22)
[2018-12-19] MEDS ORDERED: ONDANSETRON 4 MG/2 ML VIAL IVP STA (20:22)
[2018-12-19 20:23] LABS: INR 1.1 (<1.2); Prothrombin Time 11.5 sec (9.0-12.0)
[2018-12-19] MEDS ORDERED: methylPREDNISolone SOD SUCCI 125 MG/2 ML VIAL IV STA (20:23)
[2018-12-19 20:25] LABS: ALT 27 U/L (21-72); AST 36 U/L (17-59); African American GFR (CKD) >90 (>60 ml/min/1.73 sqM); Albumin 3.6 g/dL (3.5-5.0); Alkaline Phosphatase 435 U/L (38-126); Anion Gap 7 mmol/L; Blood Urea Nitrogen 13 mg/dL (9-20); Calcium 9.3 mg/dL (8.4-10.2); Carbon Dioxide 31 mmol/L (22-30); Chloride 99 mmol/L (98-107); Creatine Kinase 82 U/L (55-170); Glucose 118 mg/dL (74-99); Magnesium 1.8 mg/dL (1.6-2.3); Potassium 4.2 mmol/L (3.5-5.1); Sodium 137 mmol/L (137-145); Total Bilirubin 1.3 mg/dL (0.2-1.3); Total Protein 6.9 g/dL (6.3-8.2)
[2018-12-19] MEDS ORDERED: NITROGLYCERIN SL TABS 0.4 MG TAB SUBLINGUAL PRN (20:36)
--- NOTE | 2018-12-19 20:43 | XR ---
EXAMINATION TYPE: XR chest 2V DATE OF EXAM: 12/19/2018 COMPARISON: 12/16/2018 HISTORY: Chest pain TECHNIQUE: Frontal and lateral views of the chest are obtained. FINDINGS: There is moderate size right pleural effusion. There is mild pulmonary congestion. Heart i s enlarged. There are chest leads. There is cervical spine fusion surgery. There is slight blunting a lso left costophrenic angle. IMPRESSION: There is mild chronic congestive heart failure with increased pleural fluid compared to last exam.
[2018-12-20] MEDS ORDERED: methylPREDNISolone SOD SUCCI 125 MG/2 ML VIAL IV SCH
[2018-12-20] MEDS: MORPHINE SULFATE 4 MG/ML SYRINGE IVP PRN ×2 (02:09→06:21)
[2018-12-20] MEDS: IPRATROPIUM-ALBUTEROL 3 ML NEB INHALATION SCH ×4 (08:20→20:36)
[2018-12-20 08:49] LABS: Cholesterol 141 mg/dL (<200); HDL Cholesterol 41 mg/dL (40-60); LDL Cholesterol,Calculated 88 mg/dL (0-99); Triglycerides 59 mg/dL (<150)
[2018-12-20] MEDS: ISOSORBIDE MONONITRATE ER 30 MG TAB.ER.24H PO SCH (08:49)
[2018-12-20] MEDS: SPIRONOLACTONE 25 MG TAB PO SCH ×2 (08:49→20:02)
[2018-12-20] MEDS: METOPROLOL TARTRATE 25 MG TAB PO SCH ×2 (08:49→20:02)
[2018-12-20] MEDS ORDERED: FUROSEMIDE 40 MG TAB PO SCH (09:00)
[2018-12-20] MEDS ORDERED: ENOXAPARIN 40 MG/0.4 ML SYRINGE SQ SCH (09:00)
[2018-12-20] MEDS ORDERED: PANTOPRAZOLE 40 MG/10 ML VIAL IVP SCH (09:00)
[2018-12-20] MEDS: HYDROmorphone 0.5 MG/0.5 ML SYRINGE IVP PRN ×3 (10:25→23:08)
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
[2018-12-20] MEDS ORDERED: FUROSEMIDE 10 MG/ML 4 ML VIAL IV SCH (10:45)
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
[2018-12-20] MEDS: HYDROcodone/APAP 10-325MG 1 EACH TAB PO PRN ×2 (14:15→20:03)
[2018-12-20] MEDS: methylPREDNISolone SOD SUCCI 40 MG/ML 1 ML VIAL IV SCH ×2 (16:42→23:09)
[2018-12-20] MEDS: FUROSEMIDE 10 MG/ML 4 ML VIAL IV SCH ×2 (18:07→23:07)
[2018-12-20] MEDS: ENOXAPARIN 80 MG/0.8 ML SYRINGE SQ SCH (20:03)
[2018-12-20] MEDS: SYMBICORT 160-4.5 MCG INHALER INHALATION SCH (20:36)
[2018-12-21] MEDS: HYDROcodone/APAP 10-325MG 1 EACH TAB PO PRN ×3 (00:42→16:25)
[2018-12-21] MEDS: HYDROmorphone 0.5 MG/0.5 ML SYRINGE IVP PRN ×3 (05:19→20:54)
[2018-12-21] MEDS: PANTOPRAZOLE 40 MG TABLET PO SCH (06:21)
[2018-12-21] MEDS: METOPROLOL TARTRATE 25 MG TAB PO SCH ×2 (08:48→20:57)
[2018-12-21] MEDS: ISOSORBIDE MONONITRATE ER 30 MG TAB.ER.24H PO SCH (08:48)
[2018-12-21] MEDS: ENOXAPARIN 80 MG/0.8 ML SYRINGE SQ SCH ×2 (08:48→20:56)
[2018-12-21] MEDS: methylPREDNISolone SOD SUCCI 40 MG/ML 1 ML VIAL IV SCH ×3 (08:49→23:06)
[2018-12-21] MEDS: SPIRONOLACTONE 25 MG TAB PO SCH ×2 (08:49→20:57)
[2018-12-21] MEDS: FUROSEMIDE 10 MG/ML 4 ML VIAL IV SCH ×3 (08:49→23:06)
[2018-12-21 09:09] LABS: Anisocytosis Slight; Basophils # (A) 0.1 k/uL (0-0.2); Basophils % (A) 2 %; Eosinophils # (A) 0.3 k/uL (0-0.7); Eosinophils % (A) 5 %; HCT 41.8 % (39.0-53.0); Hypochromasia Marked; Lymphocytes # (A) 0.6 k/uL (1.0-4.8); Lymphocytes % (A) 11 %; MCH 26.8 pg (25.0-35.0); MCHC 28.6 g/dL (31.0-37.0); MCV 93.5 fL (80.0-100.0); Monocytes # (A) 0.6 k/uL (0-1.0); Monocytes % (A) 10 %; Neutrophils # (A) 3.8 k/uL (1.3-7.7); Neutrophils % (A) 69 %; Platelet Count 181 k/uL (150-450); RBC 4.47 m/uL (4.30-5.90); RDW 17.9 % (11.5-15.5); WBC 5.5 k/uL (3.8-10.6)
[2018-12-21] MEDS: IPRATROPIUM-ALBUTEROL 3 ML NEB INHALATION SCH ×4 (09:14→19:32)
[2018-12-21] MEDS: SYMBICORT 160-4.5 MCG INHALER INHALATION SCH ×2 (09:14→19:32)
[2018-12-21 09:22] LABS: African American GFR (CKD) >90 (>60 ml/min/1.73 sqM); Anion Gap 7 mmol/L; Blood Urea Nitrogen 18 mg/dL (9-20); Calcium 8.6 mg/dL (8.4-10.2); Carbon Dioxide 30 mmol/L (22-30); Chloride 98 mmol/L (98-107); Glucose 105 mg/dL (74-99); Potassium 4.4 mmol/L (3.5-5.1); Sodium 135 mmol/L (137-145)
--- NOTE | 2018-12-21 10:00 | PN ---
PROGRESS NOTE Silvino Monet is a 63-year-old gentleman with history of ischemic cardiomyopathy and right heart failure also has atrial fibrillation. Yesterday he came into the hospital with shortness of breath and atypical chest pain. There is no troponin elevation. His breathing has improved. His edema persists. We will continue IV Lasix for one more day and based on clinical course I will make further recommendations. I will also check some electrolytes today. His vital signs are stable. Blood pressure is 112/60, pulse rate is about 80 per minute. He is in atrial fib with controlled ventricular rate. JVD is evident. Lungs are clear. S1, S2 heard normally with irregular rate and rhythm, short systolic murmur. Lower extremity edema persists. Plan is to continue diuresis. Check and based on clinical course I will make further recommendations. Hopefully, he will be discharged soon. KIM / MILAGROS: [id number] /
--- NOTE | 2018-12-21 11:49 | P.PN ---
Subjective Patient sitting up on bed. Noted to be less confused than yesterday. Was seen by cardiology will continue 1 more day of IV Lasix. Discussed case with case management attempting to get connections with [facility] for Pleurx insertion Objective - Vital Signs Vital signs: Vital Signs Temp 98.1 F 12/21/18 08:55 Pulse 82 12/21/18 09:25 Resp 16 12/21/18 08:55 BP 104/61 12/21/18 08:55 Pulse Ox 97 12/21/18 08:55 Intake & Output 12/20/18 12/21/18 12/21/18 18:59 06:59 18:59 Intake Total 360 222 120 Output Total 200 800 Balance 160 -578 120 Weight 81 kg Intake: Oral 360 222 120 Output: Urine 200 800 Other: Voiding Method Urinal Urinal # Voids 1 # Bowel Movements 0 - Constitutional General appearance: Present: mild distress - EENT Eyes: Present: PERRLA Ears: bilateral: normal - Neck Neck: Present: normal ROM - Respiratory Details: Anterior pleural rub Respiratory: bilateral: diminished - Cardiovascular Rhythm: irregularly irregular - Gastrointestinal General gastrointestinal: Present: distended, normal bowel sounds Localized gastrointestinal: tender: diffuse - Integumentary Integumentary: Present: normal - Neurologic Neurologic: Present: CNII-XII intact - Musculoskeletal Musculoskeletal: Present: generalized weakness - Psychiatric Psychiatric: Present: A&O x's 3, appropriate affect, intact judgment & insight - Labs CBC & Chem 7: 12/21/18 08:40 12/21/18 08:40 Labs: Abnormal Lab Results - Last 24 Hours (Table) 12/21/18 12/21/18 Range/Units 08:40 08:40 Hgb 12.0 L (13.0-17.5) gm/dL MCHC 28.6 L (31.0-37.0) g/dL RDW 17.9 H (11.5-15.5) % Lymphocytes # 0.6 L (1.0-4.8) k/uL Sodium 135 L (137-145) mmol/L Glucose 105 H (74-99) mg/dL Assessment and Plan Plan: Assessment Acute on chronic COPD with exacerbation Chronic bronchitis Atrial fibrillation persistent congestive heart failure systolic dysfunction with 20% ejection fraction Chronic abdominal ascites with frequent paracentesis Pleural effusion with frequent thoracentesis Nausea and vomiting with diarrhea improved Chest pain left-sided epigastric troponins negative 3 Diabetes type 2 History of coronary disease with PR ischemic cardiomyopathy History of DVT and pulmonary embolus Laryngeal cancer Plan Continue consultation with cardiology 24 hours more with IV Lasix Attempting to contact [facility] regarding possible Pleurx insertion
--- NOTE | 2018-12-21 11:59 | P.PN ---
Subjective Progress Note Date: 12/21/18 Principal diagnosis: Left-sided chest pain, musculoskeletal in nature This is a 63-year-old white male patient with known history of chronic systolic/diastolic heart failure, severe cardiomegaly but he with an ejection fraction of less than 25%, chronic atrial fibrillation, on long-term anticoagulation with Lovenox, also known to have severe right-sided heart failure, recurrent ascites requiring scheduled paracentesis every other week, recurrent right-sided pleural effusion requiring scheduled thoracentesis with interventional radiology every 10 days, insulin-dependent diabetes mellitus, history of lower extremity DVTs and pulmonary embolism, CAD and COPD. On 12/19/2018 patient came into the hospital for evaluation of left-sided chest pain left arm and some diffuse body pains, and vomiting. Denied having any dyspnea, complained of nausea and vomiting. Denied any fevers, but patient states he always feels cold, which is not new. The left-sided chest pain descri bed as tightness, was constant, and was worse with any exertion. His last right thoracentesis was done 4 days ago on 12/16/2018 by interventional radiology, and approximately 2 L of straw-colored fluid was removed. His last paracentesis was done on 12/06/2018 and 1.8 L of straw-colored fluid was removed, his next paracentesis is scheduled for next Wednesday. Patient had a chest x-ray in the emergency department which showed a moderately sized right pleural effusion, mild pulmonary congestion, and slight blunting of the left costophrenic angle. Labs revealed normal white count of 8.3, hemoglobin of 13.5, INR was 1.1, electrolytes were unremarkable CO2 31, BUN is 13, creatinine 0.63, influenza screen was negative, proBNP was 4870, and troponins were negative 3, lipase was 19. Mild pretibial edema, left greater than the right, he has been started on IV diuretics, cardiology is following, EKG showed A. fib with a rate of 105, with evidence of anterior and inferior infarct of undetermined age, and nonspecific ST and T-wave abnormality, no acute ischemic changes. The patient is seen today 12/21/2018 in follow-up on the selective care unit. He is currently sitting up at the bedside. Awake and alert in no acute distress. No worsening shortness of breath, cough or congestion. Abdominal x- ray from yesterday reveals evidence of ascites and a right pleural effusion. White count 5.5. Hemoglobin 12.0. Creatinine 1.00. He remains on DuoNeb inhalations, Symbicort and IV Solu-Medrol. He remains on IV diuretics. Lovenox for DVT prophylaxis. Objective - Vital Signs Vital signs: Vital Signs Temp 98.1 F 12/21/18 08:55 Pulse 84 12/21/18 11:48 Resp 16 12/21/18 08:55 BP 104/61 12/21/18 08:55 Pulse Ox 97 12/21/18 08:55 Intake & Output 12/20/18 12/21/18 12/21/18 18:59 06:59 18:59 Intake Total 360 222 120 Output Total 200 800 Balance 160 -578 120 Weight 81 kg Intake: Oral 360 222 120 Output: Urine 200 800 Other: Voiding Method Urinal Urinal # Voids 1 # Bowel Movements 0 - Exam GENERAL EXAM: Alert, pleasant, 63-year-old male patient, on 2 L nasal cannula, comfortable in no apparent distress. HEAD: Normocephalic/atraumatic. EYES: Normal reaction of pupils, equal size. Conjunctiva pink, sclera white. NOSE: Clear with pink turbinates. THROAT: No erythema or exudates. NECK: No masses, no JVD, no thyroid enlargement, no adenopathy. CHEST: No chest wall deformity. Symmetrical expansion. LUNGS: Equal air entry with diminished breath sounds over right lower lobe and a few scattered wheezes CVS: Regular rate and rhythm, normal S1 and S2, no gallops, no murmurs, no rubs ABDOMEN: Tight, distended, nontender. No hepatosplenomegaly, normal bowel sounds, no guarding or rigidity. EXTREMITIES: No clubbing, mild pretibial edema, greater in the left lower extremity, no cyanosis, 2+ pulses and upper and lower extremities. MUSCULOSKELETAL: Muscle strength and tone normal. SPINE: No scoliosis or deformity SKIN: No rashes CENTRAL NERVOUS SYSTEM: No focal deficits, tone is normal in all 4 extremities. PSYCHIATRIC: Alert and oriented -3. Appropriate affect. Intact judgment and insight. - Labs CBC & Chem 7: 12/21/18 08:40 12/21/18 08:40 Labs: Abnormal Lab Results - Last 24 Hours (Table) 12/21/18 12/21/18 Range/Units 08:40 08:40 Hgb 12.0 L (13.0-17.5) gm/dL MCHC 28.6 L (31.0-37.0) g/dL RDW 17.9 H (11.5-15.5) % Lymphocytes # 0.6 L (1.0-4.8) k/uL Sodium 135 L (137-145) mmol/L Glucose 105 H (74-99) mg/dL Assessment and Plan Assessment: Assessment: #1. Left-sided chest pain, possibly musculoskeletal in nature, troponins were negative, EKG without acute ischemic changes #2. Nausea and vomiting, unknown etiology, lipase was negative, influenza screen is negative, posibly related to a viral illness #3. History of recurrent right-sided pleural effusion, and patient has right- sided thoracentesis on a scheduled basis every 10 days, with left thoracentesis on 12/16/2018 . Removal of 2 L of pleural fluid #4. Chronic ascites requiring scheduled paracentesis on an outpatient basis, with last paracentesis was done on 12/06/2018 with removal of 1.8 L of ascitic fluid #5. Acute exacerbation of chronic congestive heart failure with systolic dysfunction #6. Recent history of pulmonary embolism and patient is on Lovenox 80 mg every 12 hours for anticoagulation #7. Ischemic cardiomyopathy with ejection fraction of 20-25% #8. Chronic lower extremity edema #9. History of laryngeal cancer treated with radiation #10. Hypertension, hyperlipidemia #11. Diabetes mellitus #12. History of coronary artery disease and previous history of stenting #13. Chronic and ongoing history of smoking #14. History of COPD with current mild exacerbation Plan: The patient was seen and evaluated by Dr. Thomason. No acute respiratory distress. On 2 L nasal cannula. He is scheduled for an outpatient thoracentesis next week. We'll continue with DuoNeb inhalations, Symbicort and IV Solu-Medrol. He remains on IV diuretics. Less nauseated today. We'll increase his activity as tolerated. We'll continue to follow. I, the cosigning physician, performed a history & physical examination of the patient. Lungs sounds with faint end expiratory wheeze, diminished in the right lung base. Maintaining good O2 saturations in the 90s on 2 L/m per nasal cannula. I discussed the assessment and plan of care with my nurse practitioner, Lorri Hoffmann. I attest to the above note as dictated by her.
[2018-12-22 00:40] VITALS: RESP 18
[2018-12-22] MEDS: HYDROmorphone 0.5 MG/0.5 ML SYRINGE IVP PRN ×3 (01:04→11:06)
[2018-12-22] MEDS: PANTOPRAZOLE 40 MG TABLET PO SCH (06:42)
[2018-12-22] MEDS: SYMBICORT 160-4.5 MCG INHALER INHALATION SCH (07:55)
[2018-12-22] MEDS: IPRATROPIUM-ALBUTEROL 3 ML NEB INHALATION SCH ×2 (07:55→11:25)
[2018-12-22] MEDS ORDERED: FUROSEMIDE 40 MG TAB PO SCH (09:00)
[2018-12-22] MEDS: methylPREDNISolone SOD SUCCI 40 MG/ML 1 ML VIAL IV SCH (10:05)
[2018-12-22] MEDS: ENOXAPARIN 80 MG/0.8 ML SYRINGE SQ SCH (10:06)
[2018-12-22] MEDS: SPIRONOLACTONE 25 MG TAB PO SCH (10:06)
[2018-12-22] MEDS: METOPROLOL TARTRATE 25 MG TAB PO SCH (10:06)
[2018-12-22] MEDS: ISOSORBIDE MONONITRATE ER 30 MG TAB.ER.24H PO SCH (10:06)
--- NOTE | 2018-12-22 10:54 | P.DS ---
Providers Date of admission: 12/21/18 10:34 Expected date of discharge: 12/22/18 Attending physician: Andrews Escobar Consults: 12/19/18 20:36 Consult Physician Routine Consulting Provider: Kwaku Thomason Consult Reason/Comments: known Do you want consulting provider notified?: Yes Consult Physician Urgent Consulting Provider: Jose Rafael Sharif Consult Reason/Comments: cp Do you want consulting provider notified?: Yes Primary care physician: Andrews Escobar Hospital Course: Patient presented to the emergency room with complaints of nausea and vomiting and diarrhea has improved. Patient was evaluated by cardiology and pulmonology. Diagnosed with of acute on chronic diastolic day systolic dysfunction patient was treated with IV Lasix patient is improved and wanting to be discharged home. We have consult to Dr. Bryan from [facility] for possible placement of Pleurx Assessment Acute on chronic COPD with exacerbation chronic bronchitis Persistent atrial fibrillation Congestive heart failure acute on chronic diastolic/systolic dysfunction ejection fraction 25% with ischemic cardiomyopathy Persistent pleural effusion with frequent thoracentesis Abdominal ascites with frequent paracentesis Coronary disease with history of [place] laryngeal cancer Diabetes type 2 history of DVT pulmonary embolism GERD Plan Discharge home follow-up with cardiology Attempting to make arrangements for Pleurx of [facility] Patient Condition at Discharge: Serious Plan - Discharge Summary Discharge Rx Participant: No New Discharge Prescriptions: New Furosemide [Lasix] 40 mg PO BID@0900,1600 #60 tab Continue Ipratropium-Albuterol Nebulize [Duoneb 0.5 mg-3 mg/3 ml Soln] 3 ml INHALATION RT-QID #120 ampul.neb Pantoprazole [Protonix] 40 mg PO AC-BRKFST #30 tablet. Albuterol Inhaler [Ventolin Hfa Inhaler] 2 puff INHALATION RT-Q4H PRN #1 puff PRN Reason: Shortness Of Breath Isosorbide Mononitrate ER [Imdur] 30 mg PO DAILY #30 tab.er.24h Nitroglycerin Sl Tabs [Nitrostat] 0.4 mg SUBLINGUAL Q5M PRN #100 tab PRN Reason: Chest Pain Ipratropium/Albuterol Sulfate [Combivent Respimat Inhaler] 2 puff INHALATION RT-QID Spironolactone [Aldactone] 50 mg PO BID #120 tab Aspirin [Adult Low Dose Aspirin EC] 162 mg PO DAILY HYDROcodone/APAP 10-325MG [[place] 10-325] 1 tab PO Q4HR PRN PRN Reason: pain Budesonide-Formot 160-4.5 Mcg [Symbicort 160-4.5 Mcg Inhaler] 2 puff INHALATION RT-BID #1 puff Enoxaparin [Lovenox] 80 mg SQ Q12HR #60 syringe Metoprolol Tartrate [Lopressor] 75 mg PO BID Discontinued Furosemide [Lasix] 40 mg PO DAILY #30 tab Discharge Medication List Albuterol Inhaler [Ventolin Hfa Inhaler] 2 puff INHALATION RT-Q4H PRN #1 puff 03/17/18 [Rx] Ipratropium-Albuterol Nebulize [Duoneb 0.5 mg-3 mg/3 ml Soln] 3 ml INHALATION RT-QID #120 ampul.neb 03/17/18 [Rx] Isosorbide Mononitrate ER [Imdur] 30 mg PO DAILY #30 tab.er.24h 03/17/18 [Rx] Nitroglycerin Sl Tabs [Nitrostat] 0.4 mg SUBLINGUAL Q5M PRN #100 tab 03/17/18 [Rx] Pantoprazole [Protonix] 40 mg PO AC-BRKFST #30 tablet.dr 03/17/18 [Rx] Ipratropium/Albuterol Sulfate [Combivent Respimat Inhaler] 2 puff INHALATION RT- QID 05/08/18 [History] Spironolactone [Aldactone] 50 mg PO BID #120 tab 05/11/18 [Rx] Aspirin [Adult Low Dose Aspirin EC] 162 mg PO DAILY 06/27/18 [History] HYDROcodone/APAP 10-325MG [[place] 10-325] 1 tab PO Q4HR PRN 08/23/18 [History] Budesonide-Formot 160-4.5 Mcg [Symbicort 160-4.5 Mcg Inhaler] 2 puff INHALATION RT-BID #1 puff 10/04/18 [Rx] Enoxaparin [Lovenox] 80 mg SQ Q12HR #60 syringe 10/05/18 [Rx] Metoprolol Tartrate [Lopressor] 75 mg PO BID 11/10/18 [History] Furosemide [Lasix] 40 mg PO BID@0900,1600 #60 tab 12/22/18 [Rx] Follow up Appointment(s)/Referral(s): Andrews Escobar MD [Primary Care Provider] - 1-2 days
--- NOTE | 2018-12-22 11:56 | PN ---
PROGRESS NOTE Mr. Monet is doing much better. Denies chest pain. Breathing is easier. His edema is less. His weight is down. Vitals are stable. Atrial fibrillation is evident. Rate control is good. JVD is 1 cm. No carotid bruit. S1, S2 heard normally, irregular rhythm noted. Short systolic murmur noted. Lungs reveal improved air entry. Abdomen is soft and lower extremity edema has improved. we can discharge him with Lasix 40 mg orally b.i.d. and he plans to seek an opinion for his ascites and other issues at [facility]. Patient can be discharged today and follow up with Dr. Jamaica Mayers in the office. MMODL / IJN: [id number] /
[2018-12-22 12:19] VITALS: BP 112/69; PULSE 68; TEMP 98.2
--- NOTE | 2018-12-22 15:30 | P.PN ---
Subjective Progress Note Date: 12/22/18 Principal diagnosis: Left-sided chest pain, musculoskeletal in nature This is a 63-year-old white male patient with known history of chronic systolic/diastolic heart failure, severe cardiomegaly but he with an ejection fraction of less than 25%, chronic atrial fibrillation, on long-term anticoagulation with Lovenox, also known to have severe right-sided heart failure, recurrent ascites requiring scheduled paracentesis every other week, recurrent right-sided pleural effusion requiring scheduled thoracentesis with interventional radiology every 10 days, insulin-dependent diabetes mellitus, history of lower extremity DVTs and pulmonary embolism, CAD and COPD. On 12/19/2018 patient came into the hospital for evaluation of left-sided chest pain left arm and some diffuse body pains, and vomiting. Denied having any dyspnea, complained of nausea and vomiting. Denied any fevers, but patient states he always feels cold, which is not new. The left-sided chest pain descri bed as tightness, was constant, and was worse with any exertion. His last right thoracentesis was done 4 days ago on 12/16/2018 by interventional radiology, and approximately 2 L of straw-colored fluid was removed. His last paracentesis was done on 12/06/2018 and 1.8 L of straw-colored fluid was removed, his next paracentesis is scheduled for next Wednesday. Patient had a chest x-ray in the emergency department which showed a moderately sized right pleural effusion, mild pulmonary congestion, and slight blunting of the left costophrenic angle. Labs revealed normal white count of 8.3, hemoglobin of 13.5, INR was 1.1, electrolytes were unremarkable CO2 31, BUN is 13, creatinine 0.63, influenza screen was negative, proBNP was 4870, and troponins were negative 3, lipase was 19. Mild pretibial edema, left greater than the right, he has been started on IV diuretics, cardiology is following, EKG showed A. fib with a rate of 105, with evidence of anterior and inferior infarct of undetermined age, and nonspecific ST and T-wave abnormality, no acute ischemic changes. The patient is seen today 12/21/2018 in follow-up on the selective care unit. He is currently sitting up at the bedside. Awake and alert in no acute distress. No worsening shortness of breath, cough or congestion. Abdominal x- ray from yesterday reveals evidence of ascites and a right pleural effusion. White count 5.5. Hemoglobin 12.0. Creatinine 1.00. He remains on DuoNeb inhalations, Symbicort and IV Solu-Medrol. He remains on IV diuretics. Lovenox for DVT prophylaxis. The patient is seen today 12/22/2018 in follow-up on the selective care unit. He is awake and alert in no acute distress. No pulmonary complaints. He is maintaining O2 saturations up to 99% on 2 L/m per nasal cannula. He is afebrile. Hemodynamics is stable. Objective - Vital Signs Vital signs: Vital Signs Temp 98.2 F 12/22/18 12:17 Pulse 68 12/22/18 12:17 Resp 18 12/22/18 12:17 BP 112/69 12/22/18 12:17 Pulse Ox 99 12/22/18 12:17 Intake & Output 12/21/18 12/22/18 12/22/18 18:59 06:59 18:59 Intake Total 360 240 Balance 360 240 Weight 77.3 kg Intake: Oral 360 240 Other: Voiding Method Urinal Toilet Toilet Urinal Urinal # Voids 2 2 # Bowel Movements 0 - Exam GENERAL EXAM: Alert, pleasant, 63-year-old male patient, on 2 L nasal cannula, comfortable in no apparent distress. HEAD: Normocephalic/atraumatic. EYES: Normal reaction of pupils, equal size. Conjunctiva pink, sclera white. NOSE: Clear with pink turbinates. THROAT: No erythema or exudates. NECK: No masses, no JVD, no thyroid enlargement, no adenopathy. CHEST: No chest wall deformity. Symmetrical expansion. LUNGS: Equal air entry with diminished breath sounds over right lower lobe and a few scattered wheezes CVS: Regular rate and rhythm, normal S1 and S2, no gallops, no murmurs, no rubs ABDOMEN: Tight, distended, nontender. No hepatosplenomegaly, normal bowel sounds, no guarding or rigidity. EXTREMITIES: No clubbing, mild pretibial edema, greater in the left lower extremity, no cyanosis, 2+ pulses and upper and lower extremities. MUSCULOSKELETAL: Muscle strength and tone normal. SPINE: No scoliosis or deformity SKIN: No rashes CENTRAL NERVOUS SYSTEM: No focal deficits, tone is normal in all 4 extremities. PSYCHIATRIC: Alert and oriented -3. Appropriate affect. Intact judgment and insight. - Labs CBC & Chem 7: 12/21/18 08:40 12/21/18 08:40 Assessment and Plan Assessment: Assessment: #1. Left-sided chest pain, possibly musculoskeletal in nature, troponins were negative, EKG without acute ischemic changes #2. Nausea and vomiting, unknown etiology, lipase was negative, influenza screen is negative, posibly related to a viral illness #3. History of recurrent right-sided pleural effusion, and patient has right- sided thoracentesis on a scheduled basis every 10 days, with left thoracentesis on 12/16/2018 . Removal of 2 L of pleural fluid #4. Chronic ascites requiring scheduled paracentesis on an outpatient basis, with last paracentesis was done on 12/06/2018 with removal of 1.8 L of ascitic fluid #5. Acute exacerbation of chronic congestive heart failure with systolic dysfunction #6. Recent history of pulmonary embolism and patient is on Lovenox 80 mg every 12 hours for anticoagulation #7. Ischemic cardiomyopathy with ejection fraction of 20-25% #8. Chronic lower extremity edema #9. History of laryngeal cancer treated with radiation #10. Hypertension, hyperlipidemia #11. Diabetes mellitus #12. History of coronary artery disease and previous history of stenting #13. Chronic and ongoing history of smoking #14. History of COPD with current mild exacerbation Plan: The patient was seen and evaluated by Dr. Thomason. He is cleared for discharge from the pulmonary standpoint. He'll keep his appointment next week with interventional radiology for thoracentesis/paracentesis. He is encouraged to call sooner with any pulmonary complaints or other questions or concerns. I, the cosigning physician, performed a history & physical examination of the patient. Lungs sounds with faint end expiratory wheeze, diminished in the right lung base. Maintaining good O2 saturations in the 90s on 2 L/m per nasal cannula. I discussed the assessment and plan of care with my nurse practitioner, Lorri Hoffmann. I attest to the above note as dictated by her.
== END 2018-12-22 13:06 | disposition home or self-care (01) | DRG 292 ==
LOC: EC 19:37 → 1SOBS 20:36 → 3SCARD 21:17 → OBSVTOIN 12-21 10:34
PROVIDERS: ADMIT Family Medicine; ATTEND Family Medicine
DX: I11.0 Hypertensive heart disease with heart failure (principal); J44.0 Chronic obstructive pulmonary disease with (acute) lower respiratory infection; I48.1 Persistent atrial fibrillation; R18.8 Other ascites; J44.1 Chronic obstructive pulmonary disease with (acute) exacerbation; I50.43 Acute on chronic combined systolic (congestive) and diastolic (congestive) heart failure; J20.9 Acute bronchitis, unspecified; A08.4 Viral intestinal infection, unspecified; Z85.01 Personal history of malignant neoplasm of esophagus; Z85.21 Personal history of malignant neoplasm of larynx; E11.51 Type 2 diabetes mellitus with diabetic peripheral angiopathy without gangrene; E78.5 Hyperlipidemia, unspecified; F17.200 Nicotine dependence, unspecified, uncomplicated; F32.9 Major depressive disorder, single episode, unspecified; F41.9 Anxiety disorder, unspecified; I25.10 Atherosclerotic heart disease of native coronary artery without angina pectoris; I25.2 Old myocardial infarction; I25.5 Ischemic cardiomyopathy; I27.29 Other secondary pulmonary hypertension; I50.82 Biventricular heart failure; K21.9 Gastro-esophageal reflux disease without esophagitis; Z79.01 Long term (current) use of anticoagulants; Z79.4 Long term (current) use of insulin; Z79.51 Long term (current) use of inhaled steroids; Z79.82 Long term (current) use of aspirin; Z79.899 Other long term (current) drug therapy; Z82.49 Family history of ischemic heart disease and other diseases of the circulatory system; Z83.3 Family history of diabetes mellitus; Z86.711 Personal history of pulmonary embolism; Z86.718 Personal history of other venous thrombosis and embolism; Z86.73 Personal history of transient ischemic attack (TIA), and cerebral infarction without residual deficits; Z92.3 Personal history of irradiation; Z95.5 Presence of coronary angioplasty implant and graft; Z88.5 Allergy status to narcotic agent; Z88.8 Allergy status to other drugs, medicaments and biological substances
CPT/HCPCS: 36415; 71046; 74018; 80048; 80053; 80061; 82140; 82550; 83690; 83735; 83880; 84484; 85025; 85610; 85730; 87502; 93005; 94640; 94760; 96374; 96375; 99285

== ENCOUNTER 2018-12-26 08:50 | Day surgery (SDC) | payer OTHER ==
[2018-12-26 09:24] VITALS: RESP 16; TEMP 98.4
[2018-12-26 09:27] LABS: Mean Platelet Volume 7.8; Platelet Count 202 k/uL (150-450)
[2018-12-26 09:31] LABS: INR 1.1 (<1.2); Prothrombin Time 11.7 sec (9.0-12.0)
[2018-12-26 09:35] LABS: African American GFR (CKD) >90 (>60 ml/min/1.73 sqM)
[2018-12-26 10:20] VITALS: PULSE 104
[2018-12-26 10:46] VITALS: BP 119/60
--- NOTE | 2018-12-26 10:50 | US ---
Ultrasound-guided therapeutic and diagnostic thoracentesis DATE OF EXAM: 12/26/2018 CLINICAL HISTORY: Right pleural effusion The procedure was discussed with the patient. The risks, complications, benefits, and alternatives we re discussed and any questions were answered. Informed consent was obtained. The patient was placed supine on the ultrasound table and prepped and draped in the usual sterile fas hion. All elements of maximal barrier and sterile technique were utilized. Under ultrasound guidance, access into the pleural space was obtained, via the thoracentesis catheter system and direct ultrasound guidance. Ap proximately 2.1 liters of straw-colored fluid was removed. The patient was stable throughout the procedure and remained stable upon discharge from Department of Radiology. IMPRESSION: 1. Successful therapeutic and diagnostic thoracentesis under ultrasound guidance.
--- NOTE | 2018-12-26 11:05 | XR ---
EXAMINATION TYPE: XR chest 1V DATE OF EXAM: 12/26/2018 COMPARISON: 12/19/2018 HISTORY: Post right thoracentesis TECHNIQUE: Single frontal view of the chest is obtained. FINDINGS: There is interval marked reduction in amount pleural fluid with a small right lower lobe a jv of consolidation and pleural effusion persisting. No sizable pneumothorax. Postsurgical change ov erlying the cervical spine. Arthropathy of the shoulders. No overt failure. The heart is enlarged. Pu lmonary arteries are prominent correlate for pulmonary arterial hypertension. Mild chronic underlying small venous congestion suspected. IMPRESSION: 1. No pneumothorax postthoracentesis.
== END 2018-12-26 11:15 | disposition home or self-care (01) ==
LOC: RADPROMAIN 08:50
PROVIDERS: ATTEND Internal Medicine Gastroenterology
DX: J90 Pleural effusion, not elsewhere classified (principal)
CPT/HCPCS: 32555; 36415; 71045; 82565; 85049; 85610

== ENCOUNTER 2019-01-05 11:53 | Day surgery (SDC) | payer OTHER ==
[2019-01-05 12:54] LABS: Mean Platelet Volume 7.3; Platelet Count 220 k/uL (150-450)
[2019-01-05 12:58] LABS: INR 1.2 (<1.2); Prothrombin Time 12.2 sec (9.0-12.0)
[2019-01-05 13:35] VITALS: RESP 18; TEMP 97.6
[2019-01-05 14:59] VITALS: BP 122/74; PULSE 100
--- NOTE | 2019-01-05 15:14 | XR ---
EXAMINATION TYPE: XR chest 1V portable DATE OF EXAM: 01/05/2019 COMPARISON: Prior chest x-ray 12/26/2018 HISTORY: Status post right thoracentesis TECHNIQUE: Single frontal view of the chest is obtained. FINDINGS: No significant interval change. No pneumothorax. IMPRESSION: No evident complication status post thoracentesis.
--- NOTE | 2019-01-05 15:37 | US ---
EXAMINATION TYPE: US thoracentesis DATE OF EXAM: 01/05/2019 COMPARISON: NONE HISTORY: Pleural effusion. FINDINGS: Maximal barrier technique was utilized. The skin overlying a suitable pocket of fluid was localized and the overlying skin prepped and draped. Lidocaine was used for local anesthesia. Ultras ound was used with sterile technique. A 5 Amharic catheter over guide needle was advanced into the pl eural fluid collection using ultrasound guidance and the catheter advanced, needle removed. Approxim ately 2.2 liter(s) of serous fluid was removed. Catheter was withdrawn and hemostasis achieved. The re is no immediate complication. The patient discharged in stable condition without complication. IMPRESSION: STATUS POST ULTRASOUND GUIDED THORACENTESIS, POST PROCEDURE CHEST X-RAY PENDING. THIS [place] OCEDURE WAS PERFORMED BY THE UNDERSIGNED.
== END 2019-01-05 15:21 | disposition home or self-care (01) ==
LOC: RADPROMAIN 11:53
PROVIDERS: ATTEND Internal Medicine
DX: J90 Pleural effusion, not elsewhere classified (principal)
CPT/HCPCS: 32555; 36415; 71045; 85049; 85610

== ENCOUNTER 2019-01-17 12:12 | Day surgery (SDC) | payer OTHER ==
[2019-01-17 12:52] LABS: Mean Platelet Volume 7.1; Platelet Count 228 k/uL (150-450)
[2019-01-17 12:56] VITALS: TEMP 97.8
[2019-01-17 13:08] LABS: INR 1.1 (<1.2); Prothrombin Time 11.7 sec (9.0-12.0)
--- NOTE | 2019-01-17 14:58 | XR ---
EXAMINATION TYPE: XR chest 1V portable DATE OF EXAM: 01/17/2019 COMPARISON: Chest x-ray dated 01/05/2019 HISTORY: Status post right thoracentesis TECHNIQUE: Single frontal view of the chest is obtained. FINDINGS: No pneumothorax. No significant interval change. Heart remains enlarged. IMPRESSION: No evident location status post thoracentesis.
[2019-01-17 15:48] VITALS: RESP 20
[2019-01-17 15:54] VITALS: BP 137/76; PULSE 104
--- NOTE | 2019-01-17 16:14 | US ---
EXAMINATION TYPE: US thoracentesis DATE OF EXAM: 01/17/2019 COMPARISON: NONE HISTORY: Pleural effusion. FINDINGS: Maximal barrier technique was utilized. The skin overlying a suitable pocket of fluid was localized and the overlying skin prepped and draped. Lidocaine was used for local anesthesia. Ultras ound was used with sterile technique. A 5 Green[place]ic catheter over guide needle was advanced into the pl eural fluid collection using ultrasound guidance and the catheter advanced, needle removed. Approxim ately 2.7 liter(s) of serous fluid was removed. Catheter was withdrawn and hemostasis achieved. The re is no immediate complication. The patient discharged in stable condition without complication. IMPRESSION: STATUS POST ULTRASOUND GUIDED THORACENTESIS, POST PROCEDURE CHEST X-RAY PENDING. THIS [place] OCEDURE WAS PERFORMED BY THE UNDERSIGNED.
== END 2019-01-17 14:55 | disposition home or self-care (01) ==
LOC: RADPROMAIN 12:12
PROVIDERS: ATTEND Internal Medicine
DX: J90 Pleural effusion, not elsewhere classified (principal)
CPT/HCPCS: 32555; 36415; 71045; 85049; 85610

== ENCOUNTER 2019-01-22 13:01 | Inpatient (IN) | payer OTHER ==
[2019-01-22] MEDS ORDERED: methylPREDNISolone SOD SUCCI 125 MG/2 ML VIAL IV STA (13:30)
[2019-01-22] MEDS ORDERED: ALBUTEROL NEBULIZED 2.5 MG/3 ML INHALATION STA (13:30)
[2019-01-22] MEDS ORDERED: IPRATROPIUM 0.5 MG/2.5 ML NEBU INHALATION STA (13:30)
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
[2019-01-22 13:57] LABS: ALT 24 U/L (21-72); AST 38 U/L (17-59); African American GFR (CKD) >90 (>60 ml/min/1.73 sqM); Albumin 3.4 g/dL (3.5-5.0); Alkaline Phosphatase 422 U/L (38-126); Anion Gap 5 mmol/L; Blood Urea Nitrogen 13 mg/dL (9-20); Calcium 8.8 mg/dL (8.4-10.2); Carbon Dioxide 29 mmol/L (22-30); Chloride 102 mmol/L (98-107); Glucose 105 mg/dL (74-99); Magnesium 1.8 mg/dL (1.6-2.3); Potassium 4.4 mmol/L (3.5-5.1); Sodium 136 mmol/L (137-145); Total Bilirubin 1.7 mg/dL (0.2-1.3); Total Protein 6.7 g/dL (6.3-8.2)
[2019-01-22 14:00] LABS: INR 1.2 (<1.2); Partial Thromboplastin Time 30.1 sec (22.0-30.0)
[2019-01-22 14:06] LABS: Anisocytosis Slight; Basophils % (A) 1 %; Eosinophils # (A) 0.2 k/uL (0-0.7); Eosinophils % (A) 4 %; HCT 39.5 % (39.0-53.0); HGB 12.5 gm/dL (13.0-17.5); Hypochromasia Marked; Lymphocytes # (A) 0.4 k/uL (1.0-4.8); Lymphocytes % (A) 8 %; MCH 27.8 pg (25.0-35.0); MCHC 31.6 g/dL (31.0-37.0); Mean Platelet Volume 6.6; Monocytes # (A) 0.5 k/uL (0-1.0); Monocytes % (A) 9 %; Neutrophils % (A) 76 %; Platelet Count 214 k/uL (150-450); RDW 17.6 % (11.5-15.5); WBC 5.4 k/uL (3.8-10.6)
--- NOTE | 2019-01-22 14:07 | XR ---
EXAMINATION TYPE: XR chest 2V DATE OF EXAM: 01/22/2019 COMPARISON: 01/17/2019 INDICATION: Difficulty in breathing, short of breath TECHNIQUE: Frontal and lateral views of the chest are obtained. FINDINGS: The heart size is obscured by the right pleural effusion The pulmonary vasculature is normal. There is a moderate right pleural effusion. Minimal posterior left pleural effusion is not excluded.. IMPRESSION: 1. Moderate right pleural effusion. 2. Suggestion of a minimal left pleural effusion on the lateral projection.
[2019-01-22 14:14] LABS: MCV 87.9 fL (80.0-100.0)
[2019-01-22] MEDS ORDERED: HYDROmorphone 1 MG/ML 1 ML SYRINGE IVP STA (14:21)
[2019-01-22] MEDS: IPRATROPIUM-ALBUTEROL 3 ML NEB INHALATION SCH ×2 (18:02→19:41)
[2019-01-22] MEDS ORDERED: ALBUTEROL INHALER 60 PUFF/8 GM INHALER INHALATION PRN (18:08)
[2019-01-22] MEDS ORDERED: ONDANSETRON 4 MG TAB PO PRN (18:08)
[2019-01-22] MEDS ORDERED: NITROGLYCERIN SL TABS 0.4 MG TAB SUBLINGUAL PRN (18:08)
[2019-01-22] MEDS ORDERED: SYMBICORT 160-4.5 MCG INHALER INHALATION ONE (19:29)
[2019-01-22] MEDS: HYDROcodone/APAP 10-325MG 1 EACH TAB PO PRN (19:47)
[2019-01-22] MEDS: METOPROLOL TARTRATE 25 MG TAB PO SCH (19:48)
[2019-01-22] MEDS: FUROSEMIDE 40 MG TAB PO SCH (19:48)
[2019-01-22] MEDS: SPIRONOLACTONE 25 MG TAB PO SCH (19:48)
[2019-01-22] MEDS ORDERED: IPRATROPIUM INHALATION SCH (20:00)
[2019-01-22] MEDS ORDERED: ALBUTEROL SULFATE INHALATION SCH (20:00)
[2019-01-22] MEDS ORDERED: IPRATROPIUM-ALBUTEROL 3 ML NEB INHALATION SCH (20:00)
[2019-01-23] MEDS: IPRATROPIUM-ALBUTEROL 3 ML NEB INHALATION PRN ×3 (00:08→23:25)
[2019-01-23] MEDS: HYDROcodone/APAP 10-325MG 1 EACH TAB PO PRN ×3 (00:29→08:04)
[2019-01-23] MEDS: IPRATROPIUM-ALBUTEROL 3 ML NEB INHALATION SCH ×4 (07:35→20:09)
[2019-01-23] MEDS: FUROSEMIDE 40 MG TAB PO SCH ×2 (07:59→21:15)
[2019-01-23] MEDS: ISOSORBIDE MONONITRATE ER 30 MG TAB.ER.24H PO SCH (07:59)
[2019-01-23] MEDS: METOPROLOL TARTRATE 25 MG TAB PO SCH ×2 (07:59→21:15)
[2019-01-23] MEDS: PANTOPRAZOLE 40 MG TABLET PO SCH (07:59)
[2019-01-23] MEDS: ASPIRIN 81 MG PO SCH (07:59)
[2019-01-23] MEDS: SPIRONOLACTONE 25 MG TAB PO SCH ×2 (07:59→21:15)
--- NOTE | 2019-01-23 12:10 | XR ---
EXAMINATION TYPE: XR chest 1V portable DATE OF EXAM: 01/23/2019 COMPARISON: 01/22/2019 HISTORY: Status post right-sided thoracentesis TECHNIQUE: Single frontal view of the chest is obtained. FINDINGS: There is improved right pleural effusion, now small and small left pleural effusion. Overa ll volume of right pleural effusion is greater than the left. Mild cephalization remains. Cardiomedia stinal silhouette is enlarged. Bibasilar consolidations are again present. Cervical fusion device is seen. No postprocedural pneumothorax seen. IMPRESSION: 1. Improved right pleural effusion status post thoracentesis. No postprocedural pneumothorax. 2. Persistent sequela of volume overload with small pleural effusions, cardiomegaly and mild cephaliz ation.
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
--- NOTE | 2019-01-23 13:34 | US ---
EXAMINATION TYPE: US thoracentesis DATE OF EXAM: 01/23/2019 COMPARISON: NONE HISTORY: Pleural effusion. FINDINGS: Maximal barrier technique was utilized. The skin overlying a suitable pocket of fluid was localized and the overlying skin prepped and draped. Lidocaine was used for local anesthesia. Ultras ound was used with sterile technique. A 6 Tamazight catheter over guide needle was advanced into the pl eural fluid collection using ultrasound guidance and the catheter advanced, needle removed. Approxim ately 2.3 liter(s) of serous fluid was removed. Catheter was withdrawn and hemostasis achieved. The re is no immediate complication. The patient discharged in stable condition without complication. IMPRESSION: STATUS POST ULTRASOUND GUIDED THORACENTESIS, POST PROCEDURE CHEST X-RAY PENDING. THIS [place] OCEDURE WAS PERFORMED BY THE UNDERSIGNED.
[2019-01-23] MEDS: HYDROmorphone 0.5 MG/0.5 ML SYRINGE IVP PRN ×2 (16:03→21:15)
[2019-01-24] MEDS: HYDROcodone/APAP 10-325MG 1 EACH TAB PO PRN ×2 (00:57→05:53)
[2019-01-24 01:41] VITALS: BP 106/70; RESP 20; TEMP 97.3
[2019-01-24] MEDS: HYDROmorphone 0.5 MG/0.5 ML SYRINGE IVP PRN ×2 (03:06→09:42)
[2019-01-24] MEDS: IPRATROPIUM-ALBUTEROL 3 ML NEB INHALATION PRN (03:36)
[2019-01-24] MEDS: ASPIRIN 81 MG PO SCH (08:01)
[2019-01-24] MEDS: PANTOPRAZOLE 40 MG TABLET PO SCH (08:01)
[2019-01-24] MEDS: METOPROLOL TARTRATE 25 MG TAB PO SCH (08:01)
[2019-01-24] MEDS: ISOSORBIDE MONONITRATE ER 30 MG TAB.ER.24H PO SCH (08:01)
[2019-01-24] MEDS: FUROSEMIDE 40 MG TAB PO SCH (08:01)
[2019-01-24] MEDS: SPIRONOLACTONE 25 MG TAB PO SCH (08:01)
[2019-01-24] MEDS: IPRATROPIUM-ALBUTEROL 3 ML NEB INHALATION SCH ×2 (08:43→12:24)
[2019-01-24 08:56] VITALS: PULSE 105
--- NOTE | 2019-01-24 10:17 | P.DS ---
Providers Date of admission: 01/22/19 14:22 Expected date of discharge: 01/24/19 Attending physician: Andrews Escobar Consults: 01/23/19 16:43 Consult Physician Routine Consulting Provider: [facility] Reason/Comments: cardio clearance for outpatient chest drain Do you want consulting provider notified?: Yes Primary care physician: Andrews Escobar [facility] Course: 63-year-old male was admitted through the emergency room for complaints of increasing shortness of breath. Patient has recurrent and frequent pleural effusion with frequent thoracentesis. Patient has a history of coronary disease with cardiomyopathy acute on chronic congestive heart failure systolic diastolic dysfunction EF 20-25%. Intervention radiologist perform thoracentesis withdrawal 2 L Assessment Chronic recurrent pleural effusion with thoracentesis Chronic recurring abdominal ascites with frequent paracentesis Coronary disease with cardiomyopathy Acute on chronic congestive heart failure systolic diastolic dysfunction with EF of 20-25% 10 chronic COPD with exacerbation home O2 Leg edema Atrial fibrillation persistent History of laryngeal cancer Diabetes type 2 History of DVT with pulmonary embolus GERD Hypertension Liver disease Plan Follow-up with family physician Dr. Andrews Escobar I scheduled primary [facility] for placement of Pleurx Patient Condition at Discharge: Stable Plan - Discharge Summary New Discharge Prescriptions: Continue Ipratropium-Albuterol Nebulize [Duoneb 0.5 mg-3 mg/3 ml Soln] 3 ml INHALATION RT-QID #120 ampul.neb Pantoprazole [Protonix] 40 mg PO AC-BRKFST #30 tablet. Albuterol Inhaler [Ventolin Hfa Inhaler] 2 puff INHALATION RT-Q4H PRN #1 puff PRN Reason: Shortness Of Breath Isosorbide Mononitrate ER [Imdur] 30 mg PO DAILY #30 tab.er.24h Nitroglycerin Sl Tabs [Nitrostat] 0.4 mg SUBLINGUAL Q5M PRN #100 tab PRN Reason: Chest Pain Ipratropium/Albuterol Sulfate [Combivent Respimat Inhaler] 2 puff INHALATION RT-QID Spironolactone [Aldactone] 50 mg PO BID #120 tab Aspirin [Adult Low Dose Aspirin EC] 162 mg PO DAILY HYDROcodone/APAP 10-325MG [[place] 10-325] 1 tab PO Q4HR PRN PRN Reason: Pain Enoxaparin [Lovenox] 80 mg SQ Q12HR #60 syringe Metoprolol Tartrate [Lopressor] 75 mg PO BID Furosemide [Lasix] 40 mg PO BID Ondansetron [Zofran] 8 mg PO BID PRN PRN Reason: Nausea And Vomiting Discharge Medication List Albuterol Inhaler [Ventolin Hfa Inhaler] 2 puff INHALATION RT-Q4H PRN #1 puff 03/17/18 [Rx] Ipratropium-Albuterol Nebulize [Duoneb 0.5 mg-3 mg/3 ml Soln] 3 ml INHALATION RT-QID #120 ampul.neb 03/17/18 [Rx] Isosorbide Mononitrate ER [Imdur] 30 mg PO DAILY #30 tab.er.24h 03/17/18 [Rx] Nitroglycerin Sl Tabs [Nitrostat] 0.4 mg SUBLINGUAL Q5M PRN #100 tab 03/17/18 [Rx] Pantoprazole [Protonix] 40 mg PO AC-BRKFST #30 tablet.dr 03/17/18 [Rx] Ipratropium/Albuterol Sulfate [Combivent Respimat Inhaler] 2 puff INHALATION RT- QID 05/08/18 [History] Spironolactone [Aldactone] 50 mg PO BID #120 tab 05/11/18 [Rx] Aspirin [Adult Low Dose Aspirin EC] 162 mg PO DAILY 06/27/18 [History] HYDROcodone/APAP 10-325MG [[place] 10-325] 1 tab PO Q4HR PRN 08/23/18 [History] Enoxaparin [Lovenox] 80 mg SQ Q12HR #60 syringe 10/05/18 [Rx] Metoprolol Tartrate [Lopressor] 75 mg PO BID 11/10/18 [History] Furosemide [Lasix] 40 mg PO BID 01/22/19 [History] Ondansetron [Zofran] 8 mg PO BID PRN 01/22/19 [History] Follow up Appointment(s)/Referral(s): Andrews Escobar MD [Primary Care Provider] - 1-2 days
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
== END 2019-01-24 12:25 | disposition home or self-care (01) | DRG 292 ==
LOC: EC 13:01 → 4MS4W 14:22 → OBSVTOIN 01-24 09:34
PROVIDERS: ADMIT Family Medicine; ATTEND Family Medicine
PROC: 0W993ZZ Drainage of Right Pleural Cavity, Percutaneous Approach (ICD-10-PCS; principal; 2019-01-23)
DX: I11.0 Hypertensive heart disease with heart failure (principal); I48.19 Other persistent atrial fibrillation; J44.1 Chronic obstructive pulmonary disease with (acute) exacerbation; R18.8 Other ascites; J90 Pleural effusion, not elsewhere classified; I69.951 Hemiplegia and hemiparesis following unspecified cerebrovascular disease affecting right dominant side; I50.43 Acute on chronic combined systolic (congestive) and diastolic (congestive) heart failure; E11.51 Type 2 diabetes mellitus with diabetic peripheral angiopathy without gangrene; I27.29 Other secondary pulmonary hypertension; I08.1 Rheumatic disorders of both mitral and tricuspid valves; R13.10 Dysphagia, unspecified; K74.60 Unspecified cirrhosis of liver; E78.5 Hyperlipidemia, unspecified; F17.200 Nicotine dependence, unspecified, uncomplicated; F32.9 Major depressive disorder, single episode, unspecified; F41.9 Anxiety disorder, unspecified; I25.10 Atherosclerotic heart disease of native coronary artery without angina pectoris; I25.2 Old myocardial infarction; I25.5 Ischemic cardiomyopathy; I45.10 Unspecified right bundle-branch block; K21.9 Gastro-esophageal reflux disease without esophagitis; G89.29 Other chronic pain; K43.2 Incisional hernia without obstruction or gangrene; R10.9 Unspecified abdominal pain; I49.3 Ventricular premature depolarization; N42.9 Disorder of prostate, unspecified; K57.90 Diverticulosis of intestine, part unspecified, without perforation or abscess without bleeding; Z99.81 Dependence on supplemental oxygen; Z92.3 Personal history of irradiation; Z86.718 Personal history of other venous thrombosis and embolism; Z86.711 Personal history of pulmonary embolism; Z85.21 Personal history of malignant neoplasm of larynx; Z79.51 Long term (current) use of inhaled steroids; Z79.82 Long term (current) use of aspirin; Z79.899 Other long term (current) drug therapy; Z88.5 Allergy status to narcotic agent; Z88.8 Allergy status to other drugs, medicaments and biological substances; Z95.5 Presence of coronary angioplasty implant and graft; Z87.440 Personal history of urinary (tract) infections; Z82.49 Family history of ischemic heart disease and other diseases of the circulatory system; Z83.3 Family history of diabetes mellitus
CPT/HCPCS: 32555; 36415; 71045; 71046; 80053; 83735; 85025; 85610; 85730; 93005; 94640; 94760; 96374; 99285

== ENCOUNTER 2019-01-27 08:43 | Day surgery (SDC) | payer OTHER ==
[2019-01-27 09:16] LABS: Mean Platelet Volume 6.9; Platelet Count 274 k/uL (150-450)
[2019-01-27 09:18] VITALS: TEMP 97.6
[2019-01-27 09:24] LABS: INR 1.2 (<1.2); Prothrombin Time 12.2 sec (9.0-12.0)
[2019-01-27 10:22] VITALS: BP 114/64; PULSE 102; RESP 18
--- NOTE | 2019-01-27 10:39 | XR ---
EXAMINATION TYPE: XR chest 1V portable DATE OF EXAM: 01/27/2019 HISTORY: Status post right-sided thoracentesis. COMPARISON: 01/23/2019 TECHNIQUE: Single view of the chest is submitted. FINDINGS: Basilar pleural-parenchymal opacity and pleural effusion persist. I do not see evidence for sizable p neumothorax at this time. Left lung is clear. The heart is stable. Hilar and mediastinal structures are within normal limits. Degenerative changes are seen of the dorsal spine. IMPRESSION: 1. Basilar pleural-parenchymal opacity and pleural effusion persist. I do not see evidence for sizab le pneumothorax at this time.
--- NOTE | 2019-01-27 11:06 | US ---
Ultrasound-guided therapeutic thoracentesis DATE OF EXAM: 01/27/2019 CLINICAL HISTORY: Right pleural effusion The procedure was discussed with the patient. The risks, complications, benefits, and alternatives we re discussed and any questions were answered. Informed consent was obtained. The patient was placed supine on the ultrasound table and prepped and draped in the usual sterile fas hion. All elements of maximal barrier and sterile technique were utilized. Under ultrasound guidance, access into the pleural space was obtained, via the thoracentesis catheter system and direct ultrasound guidance. Ap proximately 2.1 liters of straw-colored fluid was removed. The patient was stable throughout the procedure and remained stable upon discharge from Department of Radiology. IMPRESSION: 1. Successful therapeutic thoracentesis under ultrasound guidance.
== END 2019-01-27 11:00 | disposition home or self-care (01) ==
LOC: RADPROMAIN 08:43
PROVIDERS: ATTEND Internal Medicine
DX: J90 Pleural effusion, not elsewhere classified (principal)
CPT/HCPCS: 32555; 36415; 71045; 85049; 85610

== ENCOUNTER → 2019-01-30 | Outpatient (CLI) | payer OTHER ==
--- NOTE | 2019-01-30 15:35 | CT ---
EXAMINATION TYPE: CT chest wo con DATE OF EXAM: 01/30/2019 COMPARISON: Chest x-ray dated 01/27/2019 HISTORY: Right lung pleural effusion CT DLP: 397.1 mGycm. Automated Exposure Control for Dose Reduction was Utilized. TECHNIQUE: CT scan of the thorax is performed without IV contrast. FINDINGS: LUNGS: There is a moderate right pleural effusion and associated compressive atelectasis that is mult ifocal on the right. Trace left pleural effusion is seen. No interlobular septal thickening. No pneum othorax. MEDIASTINUM: Lack of IV contrast is noted to limit evaluation for mediastinal and especially hilar ad enopathy. Prominence of the red likely relates to pulmonary arterial hypertension as the right main pulmonary artery measures 3.1 cm and left measures 2.5. Calcified mediastinal lymph nodes are benign in on the basis of prior granulomatous disease. Moderate atheromatous changes of the thoracic aorta. Stents of coronary artery calcifications. There are no definitive greater than 1 cm hilar or mediasti nal lymph nodes. Cardiomegaly. No discrete pericardial effusion. OTHER: Mild bilateral symmetric gynecomastia. Numerous benign splenic granulomas. Scattered benign he patic granulomas. Partially visualized at least mild abdominal ascites. Extensive atherosclerosis of the abdominal aorta with suprarenal chronic dissection flap that is calcified and focal on image 72. Renal arterial calcifications are also seen. Right-sided 5.1 cm cyst. Partially visualized cervical f usion device. Moderate degenerative changes of the thoracic spine. IMPRESSION: 1. Moderate right and small left pleural effusions with right basilar multifocal compressive atelecta sis. 2. Prominent red likely relates to pulmonary tumor hypertension, particularly on the right. Nondiagn ostic evaluation for right hilar adenopathy. 3. Global cardiomegaly and extensive coronary artery calcifications, marker of coronary artery diseas e. 4. Partially visualized at least mild abdominal ascites.
== END | disposition home or self-care (01) ==
LOC: RADCTMAIN 15:00
PROVIDERS: ATTEND Thoracic Surgery (Cardiothoracic Vascular Surgery)
DX: J90 Pleural effusion, not elsewhere classified (principal); J98.11 Atelectasis; I25.10 Atherosclerotic heart disease of native coronary artery without angina pectoris; I51.7 Cardiomegaly; R59.0 Localized enlarged lymph nodes
CPT/HCPCS: 71250

== ENCOUNTER 2019-02-17 12:33 | Day surgery (SDC) | payer OTHER ==
[2019-02-17 13:15] LABS: Mean Platelet Volume 7.6; Platelet Count 287 k/uL (150-450)
[2019-02-17 13:23] LABS: African American GFR (CKD) >90 (>60 ml/min/1.73 sqM); Non-African American GFR(CKD) >90 (>60 ml/min/1.73 sqM)
--- NOTE | 2019-02-17 13:28 | US ---
EXAMINATION TYPE: US abdomen limited DATE OF EXAM: 02/17/2019 COMPARISON: US CLINICAL HISTORY: R18.8 Ascites. Ascites is seen in RLQ = 9.0cm A/P pocket. Only a single pocket was seen within the right flank. No significant fluid was noted in the left. The patient wished to defer the procedure. IMPRESSION: Patient deferred procedure
[2019-02-17 13:32] LABS: INR 1.1 (<1.2); Prothrombin Time 11.4 sec (9.0-12.0)
== END 2019-02-17 13:40 | disposition home or self-care (01) ==
LOC: RADPROMAIN 12:33
PROVIDERS: ATTEND Internal Medicine Gastroenterology
DX: R18.8 Other ascites (principal); Z53.29 Procedure and treatment not carried out because of patient's decision for other reasons; Z88.5 Allergy status to narcotic agent; Z88.6 Allergy status to analgesic agent; Z88.8 Allergy status to other drugs, medicaments and biological substances
CPT/HCPCS: 36415; 76705; 82565; 85049; 85610

== ENCOUNTER 2019-03-03 09:24 | Day surgery (SDC) | payer OTHER ==
[2019-03-03 09:57] LABS: Mean Platelet Volume 7.7; Platelet Count 290 k/uL (150-450)
[2019-03-03 10:02] LABS: INR 1.1 (<1.2); Prothrombin Time 11.5 sec (9.0-12.0)
[2019-03-03 10:05] LABS: African American GFR (CKD) >90 (>60 ml/min/1.73 sqM); Non-African American GFR(CKD) >90 (>60 ml/min/1.73 sqM)
[2019-03-03 12:57] VITALS: RESP 20; TEMP 98.1
[2019-03-03 12:59] VITALS: BP 116/68; PULSE 97
--- NOTE | 2019-03-03 13:07 | US ---
EXAMINATION TYPE: US paracentesis abd w/image DATE OF EXAM: 03/03/2019 COMPARISON: NONE HISTORY: Ascites. PROCEDURE: Maximal barrier technique was utilized. The skin overlying a suitable pocket of fluid was localized with ultrasound and the overlying skin was prepped and draped. Ultrasound was utilized with sterile technique. Lidocaine was used for local anesthesia and a skin iglbert made with a scalpel. Catheter was advanced under direct ultrasound guidance into a suitable pocket of fluid and approximately 1.4 liter s of serous fluid were removed. Catheter was withdrawn and hemostasis achieved. There is no immedia te complication; the patient is discharged in stable condition. IMPRESSION: STATUS POST ULTRASOUND GUIDED PARACENTESIS FOR PALLIATION OF ASCITES. THIS PROCEDURE WA S PERFORMED BY THE UNDERSIGNED.
== END 2019-03-03 12:00 | disposition home or self-care (01) ==
LOC: RADPROMAIN 09:24
PROVIDERS: ATTEND Internal Medicine Gastroenterology
DX: R18.8 Other ascites (principal); Z88.5 Allergy status to narcotic agent; Z88.8 Allergy status to other drugs, medicaments and biological substances
CPT/HCPCS: 49083; 82565; 85049; 85610

== ENCOUNTER 2019-05-22 18:28 | Inpatient (IN) | payer OTHER ==
[2019-05-22] MEDS ORDERED: ALBUTEROL NEBULIZED 2.5 MG/3 ML INHALATION STA (18:59)
[2019-05-22] MEDS ORDERED: IPRATROPIUM 0.5 MG/2.5 ML NEBU INHALATION STA (18:59)
[2019-05-22 19:19] LABS: ALT 20 U/L (4-49); AST 42 U/L (17-59); African American GFR (CKD) >90 (>60 ml/min/1.73 sqM); Albumin 3.4 g/dL (3.5-5.0); Alkaline Phosphatase 548 U/L (38-126); Anion Gap 9 mmol/L; Blood Urea Nitrogen 17 mg/dL (9-20); Carbon Dioxide 25 mmol/L (22-30); Chloride 101 mmol/L (98-107); Glucose 85 mg/dL (74-99); Magnesium 1.8 mg/dL (1.6-2.3); Non-African American GFR(CKD) >90 (>60 ml/min/1.73 sqM); Potassium 4.7 mmol/L (3.5-5.1); Sodium 135 mmol/L (137-145); Total Bilirubin 1.7 mg/dL (0.2-1.3); Total Protein 7.2 g/dL (6.3-8.2)
[2019-05-22 19:20] LABS: INR 1.3 (<1.2); Partial Thromboplastin Time 27.2 sec (22.0-30.0)
[2019-05-22 19:21] LABS: Anisocytosis Slight; Basophils % (A) 0 %; Eosinophils # (A) 0.1 k/uL (0-0.7); Eosinophils % (A) 1 %; HCT 40.3 % (39.0-53.0); Hypochromasia Marked; Lymphocytes # (A) 0.4 k/uL (1.0-4.8); Lymphocytes % (A) 8 %; MCHC 29.9 g/dL (31.0-37.0); MCV 83.5 fL (80.0-100.0); Mean Platelet Volume 7.1; Monocytes # (A) 0.4 k/uL (0-1.0); Monocytes % (A) 9 %; Neutrophils # (A) 4.1 k/uL (1.3-7.7); Neutrophils % (A) 80 %; Platelet Count 248 k/uL (150-450); RBC 4.82 m/uL (4.30-5.90); RDW 17.1 % (11.5-15.5); WBC 5.1 k/uL (3.8-10.6)
--- NOTE | 2019-05-22 19:25 | XR ---
EXAMINATION TYPE: XR chest 2V DATE OF EXAM: 05/22/2019 COMPARISON: Chest x-ray April 20, 2019 and older x-rays. CT chest April 16, 2019. HISTORY: Recurrent right-sided effusion suspected, abnormal physical exam. TECHNIQUE: Frontal and lateral views of the chest are obtained. FINDINGS: The osseous structures remain intact. Persistent cardiomegaly. Persistent small right grea ter than left bilateral pleural effusions with reticulonodular opacities mid to lower lungs bilateral ly. Interval resolution of right basilar lateral pneumothorax noted. IMPRESSION: Cardiomegaly with recurrent small right greater than left pleural effusions and bilateral mid to lower lung reticulonodular edema and/or infiltrates are present.
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
[2019-05-22] MEDS ORDERED: FUROSEMIDE 10 MG/ML 4 ML VIAL IV STA (20:13)
[2019-05-22] MEDS ORDERED: NITROGLYCERIN SL TABS 0.4 MG TAB SUBLINGUAL PRN (20:31)
[2019-05-22] MEDS ORDERED: HYDROmorphone 1 MG/ML 1 ML SYRINGE IVP STA (20:31)
[2019-05-22] MEDS: HYDROmorphone 0.5 MG/0.5 ML SYRINGE IVP PRN ×2 (20:43→23:50)
[2019-05-22] MEDS: FUROSEMIDE 10 MG/ML 4 ML VIAL IV SCH (21:23)
[2019-05-22] MEDS: APIXABAN 5 MG TAB PO SCH (21:26)
[2019-05-22] MEDS: METOPROLOL TARTRATE 50 MG TAB PO SCH (21:27)
[2019-05-22] MEDS: SPIRONOLACTONE 25 MG TAB PO SCH (21:27)
[2019-05-23] MEDS: HYDROmorphone 0.5 MG/0.5 ML SYRINGE IVP PRN ×5 (02:41→22:10)
[2019-05-23] MEDS: IPRATROPIUM-ALBUTEROL 3 ML NEB INHALATION SCH ×4 (07:36→20:31)
[2019-05-23] MEDS: ISOSORBIDE MONONITRATE ER 30 MG TAB.ER.24H PO SCH (08:08)
[2019-05-23] MEDS: FUROSEMIDE 10 MG/ML 4 ML VIAL IV SCH ×2 (08:08→16:57)
[2019-05-23] MEDS: METOPROLOL TARTRATE 50 MG TAB PO SCH ×2 (08:08→22:03)
[2019-05-23] MEDS: APIXABAN 5 MG TAB PO SCH ×2 (08:08→22:03)
[2019-05-23] MEDS: SPIRONOLACTONE 25 MG TAB PO SCH ×2 (08:08→22:03)
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
[2019-05-23] MEDS: FORMOTEROL FUMARATE 20 MCG/2 ML NEBU INHALATION SCH (20:31)
[2019-05-23] MEDS: BUDESONIDE 1 MG/2 ML NEBU INHALATION SCH (20:31)
[2019-05-24] MEDS: FUROSEMIDE 10 MG/ML 4 ML VIAL IV SCH ×4 (00:26→23:43)
[2019-05-24] MEDS: IPRATROPIUM-ALBUTEROL 3 ML NEB INHALATION SCH ×4 (07:42→20:13)
[2019-05-24] MEDS: BUDESONIDE 1 MG/2 ML NEBU INHALATION SCH ×2 (07:43→20:13)
[2019-05-24] MEDS: FORMOTEROL FUMARATE 20 MCG/2 ML NEBU INHALATION SCH ×2 (07:43→20:13)
[2019-05-24 09:45] LABS: Calcium 8.5 mg/dL (8.4-10.2)
[2019-05-24] MEDS: HYDROmorphone 0.5 MG/0.5 ML SYRINGE IVP PRN ×2 (09:47→23:43)
[2019-05-24] MEDS: METOPROLOL TARTRATE 50 MG TAB PO SCH ×2 (09:48→21:02)
[2019-05-24] MEDS: APIXABAN 5 MG TAB PO SCH ×2 (09:48→21:02)
[2019-05-24] MEDS: SPIRONOLACTONE 25 MG TAB PO SCH ×2 (09:48→21:03)
[2019-05-24] MEDS: ISOSORBIDE MONONITRATE ER 30 MG TAB.ER.24H PO SCH (09:48)
[2019-05-24 10:14] LABS: Potassium 5.4 mmol/L (3.5-5.1)
--- NOTE | 2019-05-24 12:20 | P.PN ---
Subjective Patient sitting up in a chair with legs elevated, he reports he has not been able to sleep or get comfortable, he denies any pain at this time stating that a lot of does work however due to hypotension Dilaudid IV push was discontinued by cardiology. Discussed his pain management with him, we will initiate home oral pain medication for pain management. He currently has DuoNeb nebulized treatments, Pulmicort and Perforomist along with IV Solu-Medrol per pulmonology, cardiology plans for continued diuresing and follow the renal function with strict intake and output documentation along with daily weights. Objective - Vital Signs Vital signs: Vital Signs Temp 97.6 F 05/24/19 05:00 Pulse 76 05/24/19 11:33 Resp 20 05/24/19 08:00 BP 88/59 05/24/19 08:00 Pulse Ox 99 05/24/19 05:00 Intake & Output 05/23/19 05/24/19 05/24/19 18:59 06:59 18:59 Output Total 200 Balance -200 Weight 81.5 kg 81.5 kg Output: Urine 200 Other: Voiding Method Urinal Urinal Urinal - Constitutional General appearance: Present: mild distress - Neck Neck: Present: normal ROM - Respiratory Respiratory: bilateral: diminished, rales (faint) - Cardiovascular Rhythm: irregularly irregular - Gastrointestinal General gastrointestinal: Present: distended, normal bowel sounds - Psychiatric Psychiatric: Present: A&O x's 3 - Labs CBC & Chem 7: 05/22/19 18:50 05/24/19 08:45 Labs: Abnormal Lab Results - Last 24 Hours (Table) 05/24/19 Range/Units 08:45 Sodium 133 L (137-145) mmol/L Potassium 5.4 H (3.5-5.1) mmol/L Carbon Dioxide 20 L (22-30) mmol/L BUN 35 H (9-20) mg/dL Microbiology - Last 24 Hours (Table) 05/22/19 19:38 Blood Culture - Preliminary Blood No Growth after 24 hours Assessment and Plan Plan: Assessment: Chest pain without troponin elevation Acute on chronic systolic and diastolic heart failure EF of 25% Chronic persistent atrial fibrillation controlled, anticoagulant Eliquis Chronic ascites history of paracentesis Chronic lower extremity edema History of laryngeal cancer with radiation treatments History of hypertension History of hyperlipidemia Diabetes mellitus type 2 History of COPD with current mild exacerbation Plan: Continue cardiology consultation and will follow recommendations Continue pulmonology consultation and will follow recommendations
[2019-05-24] MEDS: HYDROcodone/APAP 10-325MG 1 EACH TAB PO PRN ×2 (12:30→16:41)
--- NOTE | 2019-05-24 13:16 | P.PN ---
Subjective HISTORY OF PRESENTING ILLNESS This is a pleasant 64-year-old male past medical history significant for chronic systolic and diastolic heart failure, chronic atrial fibrillation on long-term anticoagulation, cardiomyopathy with ejection fraction 25%, coronary artery disease status post PCI in the setting of a myocardial infarction, recur rent ascites and effusions requiring paracentesis and thoracentesis on a regular basis. He follows in the office with Dr. Mayers. He is seen and examined sitting up in the chair in no acute distress. He continues to feel short of breath and is having ongoing pleuritic chest pain with each breath he takes. Receiving IV dilaudid which has been dropping his blood pressure. Blood pressure 88/59 this m orning after dilaudid. Repeat this afternoon 110/55 heart rate 97. Currently maintained on eliquis 5 mg BID, lasix 40 mg IV TID, lopressor 50 mg BID, imdur 30 mg daily and aldactone 75 mg BID. Laboratory data reviewed, sodium 133, potassium 5.4, creatinine 1.12. PHYSICAL EXAMINATION CONSTITUTIONAL: No apparent distress. Flat affect. HEENT: Head is normocephalic. Pupils are equal, round. Sclerae anicteric. Mucous membranes of the mouth are moist. No JVD. No carotid bruit. CHEST EXAMINATION: Fine rales at the bases bilaterally, diminished. No wheezes or rhonchi. No chest wall tenderness is noted on palpation or with deep breathing. HEART EXAMINATION: Irregular rate and rhythm. S1, S2 heard. Systolic ejection murmur at the left sternal border, no gallops or rub. EXTREMITIES: 2+ peripheral pulses, 1+ bilateral lower extremity pitting edema and no calf tenderness. ASSESSMENT Acute on chronic systolic and diastolic heart failure, EF 25% Hyperkalemia Chest pain, pleuritic. Atypical for angina. 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 His pain will improve as his fluid volume status improves. Plus his blood pressure cannot tolerate both dilaudid and IV lasix. Follow renal function and electrolytes in the morning. May need to decrease aldactone if potassium continues to be elevated tomorrow. Output documentation not accurately documented, this is imperative to his care. Nurse Practitioner note has been reviewed, I agree with a documented findings and plan of care. Patient was seen and examined. Objective - Vital Signs Vital signs: Vital Signs Temp 97.5 F L 05/24/19 12:27 Pulse 97 05/24/19 12:27 Resp 22 05/24/19 12:27 BP 110/55 05/24/19 12:27 Pulse Ox 94 L 05/24/19 12:27 Intake & Output 05/23/19 05/24/19 05/24/19 18:59 06:59 18:59 Output Total 200 Balance -200 Weight 81.5 kg 81.5 kg Output: Urine 200 Other: Voiding Method Urinal Urinal Urinal - Labs CBC & Chem 7: 05/22/19 18:50 05/24/19 08:45 Labs: Abnormal Lab Results - Last 24 Hours (Table) 05/24/19 Range/Units 08:45 Sodium 133 L (137-145) mmol/L Potassium 5.4 H (3.5-5.1) mmol/L Carbon Dioxide 20 L (22-30) mmol/L BUN 35 H (9-20) mg/dL Microbiology - Last 24 Hours (Table) 05/22/19 19:38 Blood Culture - Preliminary Blood No Growth after 24 hours
--- NOTE | 2019-05-24 17:06 | P.PN ---
Subjective Progress Note Date: 05/24/19 This is a very pleasant 63-year-old white male patient with known history of chronic systolic/diastolic heart failure, severe cardiomegaly with an ejection fraction of 25-30%, chronic atrial fibrillation, on long-term anticoagulation with Eliquis, also known to have severe right-sided heart failure , recurrent ascites requiring scheduled paracentesis every other week, recurrent right-sided pleural effusion requiring multiple thoracentesis and subsequent Pleurx catheter placement at [facility], insulin-dependent diabetes mellitus, history of lower extremity DVTs and pulmonary embolism, CAD and COPD. He presented here again yesterday with complaints of shortness of breath and ch est pain. He denied any fever, chills, night sweat No nausea, vomiting, diarrhea. His Pleurx catheter was removed last due to minimal output according to the patient. Chest x-ray reveals cardiomegaly with recurrent small right greater than left pleural effusions and bilateral mid to lower lung r eticulonodular edema/infiltrate. White count 5.1. Hemoglobin 12.0. INR 1.3. Sodium 135. Potassium 4.7. Creatinine 0.59. Influenza screen negative. Troponin 0.017. Pro BNP 3540. He is seen today in consultationon the regular medical floor. He is somewhat drowsy. Recently receiving Dilaudid for atypical chest pain. He was hypoxemic at 885 on room air. Currently 92% on 2 L/m per nasal cannula. On today's evaluation of 05/24/2019 the patient is being seen for a follow-up. Is complaining of shortness of breath. He is not having any significant abdominal distention. As mentioned earlier the patient had insertion and removal of a Pleurx catheter on the right lung as the amount of output had dropped significantly. At the time of his arrival his proBNP level was elevated and there was some component of fluid overload and pulmonary edema. He was given IV Lasix. We are limited with diuresis as the patient's blood pressure is borderline low. No fever. No chills. No altered mentation. Objective - Vital Signs Vital signs: Vital Signs Temp 97.5 F L 05/24/19 13:00 Pulse 74 05/24/19 16:12 Resp 22 05/24/19 13:00 BP 110/55 05/24/19 13:00 Pulse Ox 94 L 05/24/19 13:00 Intake & Output 05/23/19 05/24/19 05/24/19 18:59 06:59 18:59 Output Total 200 Balance -200 Weight 81.5 kg 81.5 kg Output: Urine 200 Other: Voiding Method Urinal Urinal Urinal - Exam GENERAL EXAM: Alert, comfortable, on 2 L nasal cannula, comfortable in no apparent distress. HEAD: Normocephalic. EYES: Normal reaction of pupils, equal size. NOSE: Clear with pink turbinates. THROAT: No erythema or exudates. NECK: No masses, no JVD. CHEST: No chest wall deformity. LUNGS: Equal air entry with few scattered rhonchi, end expiratory wheeze, diminished. CVS: S1 and S2 normal with no audible murmur, regular rhythm. ABDOMEN: No hepatosplenomegaly, normal bowel sounds, no guarding or rigidity. SPINE: No scoliosis or deformity SKIN: No rashes CENTRAL NERVOUS SYSTEM: No focal deficits, tone is normal in all 4 extremities. EXTREMITIES: There is no peripheral edema. positive clubbing, no cyanosis. Peripheral pulses are intact. - Labs CBC & Chem 7: 05/22/19 18:50 05/24/19 08:45 Labs: Abnormal Lab Results - Last 24 Hours (Table) 05/24/19 Range/Units 08:45 Sodium 133 L (137-145) mmol/L Potassium 5.4 H (3.5-5.1) mmol/L Carbon Dioxide 20 L (22-30) mmol/L BUN 35 H (9-20) mg/dL Microbiology - Last 24 Hours (Table) 05/22/19 19:38 Blood Culture - Preliminary Blood No Growth after 24 hours Assessment and Plan Plan: #1. Left-sided chest pain, possibly musculoskeletal in nature, troponins were negative, EKG without acute ischemic changes #2. History of recurrent right-sided pleural effusion, the patient had a right- sided Pleurx catheter placed at [facility] and has been following up there for 3 "flushes" due to thick red clotting and not draining. Pleurx catheter removed last week at [facility] for minimal output according to the patient. #3. Chronic ascites requiring multiple recurrent paracentesis #4. Acute exacerbation of chronic congestive heart failure with systolic dysfunction #5. Recent history of pulmonary embolism and patient is on Eliquis for anticoagulation #6. Ischemic cardiomyopathy with ejection fraction of 20-25% #7. Chronic lower extremity edema negative for DVT. Negative Doppler of the lower extremities today. The patient is on Lovenox in the outpatient setting. #8. History of laryngeal cancer treated with radiation #9. Hypertension, hyperlipidemia #10. Diabetes mellitus #11. History of coronary artery disease and previous history of stenting #12. Chronic and ongoing history of smoking #13 History of COPD with current mild exacerbation Plan Continue with diuresis continue Lasix and Aldactone Monitor electrolytes Repeat chest x-ray in the morning Continue DuoNeb nebulized treatments around the clock No need for systemic steroids for now Dilaudid 0.5 mg every 6-8 hours on a when necessary basis for pain control in conjunction with Roland We'll continue to follow. Long-term prognosis poor baseline above-mentioned comorbidities.
[2019-05-24] MEDS ORDERED: HYDROmorphone 0.5 MG/0.5 ML SYRINGE IM PRN (17:07)
[2019-05-24] MEDS ORDERED: HYDROmorphone 0.5 MG/0.5 ML SYRINGE IVP PRN (18:30)
[2019-05-24] MEDS: IPRATROPIUM-ALBUTEROL 3 ML NEB INHALATION PRN (23:15)
[2019-05-24] MEDS: MAG HYDROX/AL HYDROX/SIMETH 30 ML CUP PO PRN (23:43)
[2019-05-25] MEDS: PANTOPRAZOLE 40 MG/10 ML VIAL IVP SCH ×2 (00:13→09:39)
[2019-05-25] MEDS: IPRATROPIUM-ALBUTEROL 3 ML NEB INHALATION PRN ×3 (03:06→23:36)
[2019-05-25] MEDS: HYDROmorphone 0.5 MG/0.5 ML SYRINGE IVP PRN ×3 (03:23→19:57)
[2019-05-25] MEDS: FORMOTEROL FUMARATE 20 MCG/2 ML NEBU INHALATION SCH ×2 (08:13→19:46)
[2019-05-25] MEDS: BUDESONIDE 1 MG/2 ML NEBU INHALATION SCH ×2 (08:13→19:46)
[2019-05-25] MEDS: IPRATROPIUM-ALBUTEROL 3 ML NEB INHALATION SCH ×4 (08:13→19:45)
[2019-05-25] MEDS: ISOSORBIDE MONONITRATE ER 30 MG TAB.ER.24H PO SCH (09:39)
[2019-05-25] MEDS: SPIRONOLACTONE 25 MG TAB PO SCH ×2 (09:39→19:56)
[2019-05-25] MEDS: APIXABAN 5 MG TAB PO SCH ×2 (09:39→19:57)
[2019-05-25] MEDS: METOPROLOL TARTRATE 50 MG TAB PO SCH ×2 (09:39→19:57)
[2019-05-25] MEDS: HYDROcodone/APAP 10-325MG 1 EACH TAB PO PRN (09:39)
[2019-05-25] MEDS: FUROSEMIDE 10 MG/ML 4 ML VIAL IV SCH ×3 (09:40→23:28)
--- NOTE | 2019-05-25 09:48 | XR ---
EXAMINATION TYPE: Two view chest xray. DATE OF EXAM: 05/25/2019 COMPARISON: 05/22/2019 TECHNIQUE: PA and lateral views submitted. HISTORY: Shortness of breath FINDINGS: There is cardiomegaly with diffuse interstitial pattern. Bilateral consolidation and pleural effusion stable. Postsurgical change overlying the cervical spine. Apical pleural thickening on the right. At herosclerotic change aorta. Degenerative change of the spine. Mild hyperinflation can be associated w ith COPD. IMPRESSION: 1. Stable diffuse pleural-parenchymal changes. Correlate for CHF otherwise consider pneumonia.
[2019-05-25 11:25] LABS: Calcium 8.7 mg/dL (8.4-10.2); Potassium 4.7 mmol/L (3.5-5.1)
--- NOTE | 2019-05-25 11:36 | P.PN ---
Subjective Patient sitting up at the side of the bed states he had an episode earlier when he took his oxygen off he was not able to catch his breath which has now since resolved after nasal cannula was put back in place, he reports pain is well managed with current pain medication regimen. Pulmonary recommendations of no IV steroids at this time. Objective - Vital Signs Vital signs: Vital Signs Temp 97.5 F L 05/25/19 05:00 Pulse 61 05/25/19 08:34 Resp 16 05/25/19 05:00 BP 103/69 05/25/19 05:00 Pulse Ox 93 L 05/25/19 08:14 Intake & Output 05/24/19 05/25/19 05/25/19 18:59 06:59 18:59 Intake Total 590 Output Total 200 Balance -200 590 Weight 85 kg Intake: Oral 590 Output: Urine 200 Other: Voiding Method Toilet Toilet Urinal Urinal # Voids 1 - Constitutional General appearance: Present: mild distress - Neck Neck: Present: normal ROM - Respiratory Respiratory: bilateral: diminished - Cardiovascular Rhythm: irregularly irregular - Gastrointestinal General gastrointestinal: Present: normal bowel sounds, soft - Psychiatric Psychiatric: Present: A&O x's 3, appropriate affect - Labs CBC & Chem 7: 05/22/19 18:50 05/25/19 10:48 Labs: Abnormal Lab Results - Last 24 Hours (Table) 05/25/19 Range/Units 10:48 Sodium 132 L (137-145) mmol/L Carbon Dioxide 21 L (22-30) mmol/L BUN 41 H (9-20) mg/dL Glucose 110 H (74-99) mg/dL Microbiology - Last 24 Hours (Table) 05/22/19 19:38 Blood Culture - Preliminary Blood No Growth after 48 hours - Imaging and Cardiology Chest x-ray: report reviewed Assessment and Plan Assessment: Chest pain without troponin elevation Acute on chronic systolic and diastolic heart failure EF of 25% Chronic persistent atrial fibrillation controlled, anticoagulant Eliquis Chronic ascites history of paracentesis Chronic lower extremity edema History of laryngeal cancer with radiation treatments History of hypertension History of hyperlipidemia Diabetes mellitus type 2 History of COPD with current mild exacerbation Plan: Continue cardiology consultation and will follow recommendations Continue pulmonology consultation and will follow recommendations
--- NOTE | 2019-05-25 13:27 | P.PN ---
Subjective HISTORY OF PRESENTING ILLNESS This is a pleasant 64-year-old male past medical history significant for chronic systolic and diastolic heart failure, chronic atrial fibrillation on long-term anticoagulation, cardiomyopathy with ejection fraction 25%, coronary artery disease status post PCI in the setting of a myocardial infarction, recur rent ascites and effusions requiring paracentesis and thoracentesis on a regular basis. He follows in the office with Dr. Mayers. He is seen and examined sitting up in bed in no acute distress. He continues to complain of pain in the chest with breathing and all over. Output documentation indicates minimal output however the patient states he is urinating a lot. Lengthy discussion had with him regarding overall prognosis. Laboratory data reviewed, sodium 132, potassium 4.7, creatinine 1.13. PHYSICAL EXAMINATION CONSTITUTIONAL: No apparent distress. Flat affect. HEENT: Head is normocephalic. Pupils are equal, round. Sclerae anicteric. Mucous membranes of the mouth are moist. No JVD. No carotid bruit. CHEST EXAMINATION: Fine rales at the bases bilaterally, diminished. No wheezes or rhonchi. No chest wall tenderness is noted on palpation or with deep breathing. HEART EXAMINATION: Irregular rate and rhythm. S1, S2 heard. Systolic ejection murmur at the left sternal border, no gallops or rub. EXTREMITIES: 2+ peripheral pulses, 1+ bilateral lower extremity pitting edema and no calf tenderness. ASSESSMENT Acute on chronic systolic and diastolic heart failure, EF 25% Hyperkalemia Chest pain, pleuritic. Atypical for angina. Chronic recurrent pleural effusion requiring frequent thoracentesis, pleurx catheter removed at [facility] Chronic recurrent ascites requiring weekly paracentesis Chronic persistent atrial fibrillation on terminal carman anticoagulation Coronary artery disease s/p PCI PLAN Continue IV diuresis as his blood pressure tolerates. Accurate documentation of output imperative to assess diuresis. Further discussion regarding palliative versus hospice care with the primary care team and the patient along with his family requested. We will continue to follow make recommendations accordingly. Follow renal function and electrolytes in the morning. Nurse Practitioner note has been reviewed, I agree with a documented findings and plan of care. Patient was seen and examined. Objective - Vital Signs Vital signs: Vital Signs Temp 97.5 F L 05/25/19 05:00 Pulse 61 05/25/19 08:34 Resp 16 05/25/19 07:30 BP 103/69 05/25/19 05:00 Pulse Ox 93 L 05/25/19 08:14 Intake & Output 05/24/19 05/25/19 05/25/19 18:59 06:59 18:59 Intake Total 590 Output Total 200 Balance -200 590 Weight 85 kg Intake: Oral 590 Output: Urine 200 Other: Voiding Method Toilet Toilet Toilet Urinal Urinal Urinal # Voids 1 2 - Labs CBC & Chem 7: 05/22/19 18:50 05/25/19 10:48 Labs: Abnormal Lab Results - Last 24 Hours (Table) 05/25/19 Range/Units 10:48 Sodium 132 L (137-145) mmol/L Carbon Dioxide 21 L (22-30) mmol/L BUN 41 H (9-20) mg/dL Glucose 110 H (74-99) mg/dL Microbiology - Last 24 Hours (Table) 05/22/19 19:38 Blood Culture - Preliminary Blood No Growth after 48 hours
--- NOTE | 2019-05-25 15:55 | P.PN ---
Subjective Progress Note Date: 05/25/19 This is a very pleasant 63-year-old white male patient with known history of chronic systolic/diastolic heart failure, severe cardiomegaly with an ejection fraction of 25-30%, chronic atrial fibrillation, on long-term anticoagulation with Eliquis, also known to have severe right-sided heart failure , recurrent ascites requiring scheduled paracentesis every other week, recurrent right-sided pleural effusion requiring multiple thoracentesis and subsequent Pleurx catheter placement at [facility], insulin-dependent diabetes mellitus, history of lower extremity DVTs and pulmonary embolism, CAD and COPD. He presented here again yesterday with complaints of shortness of breath and ch est pain. He denied any fever, chills, night sweat No nausea, vomiting, diarrhea. His Pleurx catheter was removed last due to minimal output according to the patient. Chest x-ray reveals cardiomegaly with recurrent small right greater than left pleural effusions and bilateral mid to lower lung r eticulonodular edema/infiltrate. White count 5.1. Hemoglobin 12.0. INR 1.3. Sodium 135. Potassium 4.7. Creatinine 0.59. Influenza screen negative. Troponin 0.017. Pro BNP 3540. He is seen today in consultationon the regular medical floor. He is somewhat drowsy. Recently receiving Dilaudid for atypical chest pain. He was hypoxemic at 885 on room air. Currently 92% on 2 L/m per nasal cannula. On today's evaluation of 05/24/2019 the patient is being seen for a follow-up. Is complaining of shortness of breath. He is not having any significant abdominal distention. As mentioned earlier the patient had insertion and removal of a Pleurx catheter on the right lung as the amount of output had dropped significantly. At the time of his arrival his proBNP level was elevated and there was some component of fluid overload and pulmonary edema. He was given IV Lasix. We are limited with diuresis as the patient's blood pressure is borderline low. No fever. No chills. No altered mentation. On today's evaluation of 05/25/2019 and seeing this patient for a follow-up. Slightly better compared to yesterday. Chest x-ray showing stable CHF with stable right-sided pleural effusion. No significant worsening in his condition pain no major swelling lower extremities. No fever or chills. He remains IV Lasix. Blood work and electrodes are all noted and the patient is a negative fluid balance. BUN is 41 with a creatinine of 1.1. Sodium is at 132. Objective - Vital Signs Vital signs: Vital Signs Temp 97.5 F L 05/25/19 05:00 Pulse 68 05/25/19 13:54 Resp 18 05/25/19 13:54 BP 103/69 05/25/19 05:00 Pulse Ox 93 L 05/25/19 08:14 Intake & Output 05/24/19 05/25/19 05/25/19 18:59 06:59 18:59 Intake Total 590 Output Total 200 Balance -200 590 Weight 85 kg Intake: Oral 590 Output: Urine 200 Other: Voiding Method Toilet Toilet Toilet Urinal Urinal Urinal # Voids 1 2 - Exam GENERAL EXAM: Alert, comfortable, on 2 L nasal cannula, comfortable in no apparent distress. HEAD: Normocephalic. EYES: Normal reaction of pupils, equal size. NOSE: Clear with pink turbinates. THROAT: No erythema or exudates. NECK: No masses, no JVD. CHEST: No chest wall deformity. LUNGS: Equal air entry with few scattered rhonchi, end expiratory wheeze, diminished. CVS: S1 and S2 normal with no audible murmur, regular rhythm. ABDOMEN: No hepatosplenomegaly, normal bowel sounds, no guarding or rigidity. SPINE: No scoliosis or deformity SKIN: No rashes CENTRAL NERVOUS SYSTEM: No focal deficits, tone is normal in all 4 extremities. EXTREMITIES: There is no peripheral edema. positive clubbing, no cyanosis. Peripheral pulses are intact. - Labs CBC & Chem 7: 05/22/19 18:50 05/25/19 10:48 Labs: Abnormal Lab Results - Last 24 Hours (Table) 05/25/19 Range/Units 10:48 Sodium 132 L (137-145) mmol/L Carbon Dioxide 21 L (22-30) mmol/L BUN 41 H (9-20) mg/dL Glucose 110 H (74-99) mg/dL Microbiology - Last 24 Hours (Table) 05/22/19 19:38 Blood Culture - Preliminary Blood No Growth after 48 hours Assessment and Plan Plan: #1. Left-sided chest pain, possibly musculoskeletal in nature, troponins were negative, EKG without acute ischemic changes #2. History of recurrent right-sided pleural effusion, the patient had a right- sided Pleurx catheter placed at [facility] and has been following up there for 3 "flushes" due to thick red clotting and not draining. Pleurx catheter removed last week at [facility] for minimal output according to the patient. #3. Chronic ascites requiring multiple recurrent paracentesis #4. Acute exacerbation of chronic congestive heart failure with systolic dysfunction #5. Recent history of pulmonary embolism and patient is on Eliquis for anticoagulation #6. Ischemic cardiomyopathy with ejection fraction of 20-25% #7. Chronic lower extremity edema negative for DVT. Negative Doppler of the lower extremities today. The patient is on Lovenox in the outpatient setting. #8. History of laryngeal cancer treated with radiation #9. Hypertension, hyperlipidemia #10. Diabetes mellitus #11. History of coronary artery disease and previous history of stenting #12. Chronic and ongoing history of smoking #13 History of COPD with current mild exacerbation Plan Continue with diuresis continue Lasix and Aldactone Monitor electrolytes Repeat chest x-ray from today showing a stable CHF with allow. Right-sided pleural effusion Continue DuoNeb nebulized treatments around the clock No need for systemic steroids for now Neck is stable and somewhat improved compared to yesterday.
[2019-05-25] MEDS: MAG HYDROX/AL HYDROX/SIMETH 30 ML CUP PO PRN (22:48)
[2019-05-26] MEDS: HYDROmorphone 0.5 MG/0.5 ML SYRINGE IVP PRN ×3 (00:06→10:55)
[2019-05-26] MEDS: HYDROcodone/APAP 10-325MG 1 EACH TAB PO PRN ×2 (01:47→15:51)
[2019-05-26] MEDS: IPRATROPIUM-ALBUTEROL 3 ML NEB INHALATION PRN (03:08)
[2019-05-26 05:38] VITALS: BP 103/68; RESP 20; TEMP 97.5
[2019-05-26] MEDS ORDERED: PANTOPRAZOLE 40 MG TABLET PO SCH (07:30)
[2019-05-26] MEDS: METOPROLOL TARTRATE 50 MG TAB PO SCH (09:03)
[2019-05-26] MEDS: SPIRONOLACTONE 25 MG TAB PO SCH (09:04)
[2019-05-26] MEDS: FUROSEMIDE 10 MG/ML 4 ML VIAL IV SCH (09:04)
[2019-05-26] MEDS: APIXABAN 5 MG TAB PO SCH (09:04)
[2019-05-26] MEDS: ISOSORBIDE MONONITRATE ER 30 MG TAB.ER.24H PO SCH (09:04)
[2019-05-26] MEDS: IPRATROPIUM-ALBUTEROL 3 ML NEB INHALATION SCH ×2 (09:09→12:27)
[2019-05-26] MEDS: FORMOTEROL FUMARATE 20 MCG/2 ML NEBU INHALATION SCH (09:09)
[2019-05-26] MEDS: BUDESONIDE 1 MG/2 ML NEBU INHALATION SCH (09:09)
[2019-05-26 09:54] LABS: Potassium 4.3 mmol/L (3.5-5.1)
[2019-05-26 12:38] VITALS: PULSE 68
--- NOTE | 2019-05-26 13:14 | P.PN ---
Subjective HISTORY OF PRESENTING ILLNESS This is a pleasant 64-year-old male past medical history significant for chronic systolic and diastolic heart failure, chronic atrial fibrillation on long-term anticoagulation, cardiomyopathy with ejection fraction 25%, coronary artery disease status post PCI in the setting of a myocardial infarction, recur rent ascites and effusions requiring paracentesis and thoracentesis on a regular basis. He follows in the office with Dr. Mayers. He is seen and examined sitting up on the edge of the bed in no acute distress. Blood pressure 103/68 heart rate 59 afebrile maintaining oxygen saturation on nasal cannula. Laboratory data reviewed, sodium 136, potassium 4.3, creatinine 1.09. His urine output has incr eased over the previous 24 hours and he is maintaining a negative fluid balance for the first time since admission. He continues to feel short of breath. No chest pain, dizziness or palpitations. PHYSICAL EXAMINATION CONSTITUTIONAL: No apparent distress. Flat affect. HEENT: Head is normocephalic. Pupils are equal, round. Sclerae anicteric. Mucous membranes of the mouth are moist. No JVD. No carotid bruit. CHEST EXAMINATION: Rales at the bases bilaterally, diminished. No wheezes or rhonchi. No chest wall tenderness is noted on palpation or with deep breathing. HEART EXAMINATION: Irregular rate and rhythm. S1, S2 heard. Systolic ejection murmur at the left sternal border, no gallops or rub. EXTREMITIES: 2+ peripheral pulses, 1+ bilateral lower extremity pitting edema and no calf tenderness. ASSESSMENT Acute on chronic systolic and diastolic heart failure, EF 25% Hyperkalemia Chest pain, pleuritic. Atypical for angina. Chronic recurrent pleural effusion requiring frequent thoracentesis, pleurx catheter removed at [facility] Chronic recurrent ascites requiring weekly paracentesis Chronic persistent atrial fibrillation on skilled nursing anticoagulation Coronary artery disease s/p PCI PLAN Continue to diuresis for another 24 hours. Follow renal function and electrolytes in the morning. Nurse Practitioner note has been reviewed, I agree with a documented findings and plan of care. Patient was seen and examined. Objective - Vital Signs Vital signs: Vital Signs Temp 97.5 F L 05/26/19 05:00 Pulse 68 05/26/19 12:37 Resp 20 05/26/19 05:00 BP 103/68 05/26/19 05:00 Pulse Ox 99 05/26/19 05:00 Intake & Output 05/25/19 05/26/19 05/26/19 18:59 06:59 18:59 Intake Total 290 Output Total 300 750 Balance -300 -460 Intake: Oral 290 Output: Urine 300 750 Other: Voiding Method Toilet Toilet Toilet Urinal Urinal Urinal # Voids 2 1 - Labs CBC & Chem 7: 05/22/19 18:50 05/26/19 09:16 Labs: Abnormal Lab Results - Last 24 Hours (Table) 05/26/19 Range/Units 09:16 Sodium 136 L (137-145) mmol/L BUN 36 H (9-20) mg/dL Glucose 106 H (74-99) mg/dL Microbiology - Last 24 Hours (Table) 05/22/19 19:38 Blood Culture - Preliminary Blood No Growth after 72 hours
--- NOTE | 2019-05-26 13:23 | P.PN ---
Subjective Progress Note Date: 05/26/19 This is a very pleasant 63-year-old white male patient with known history of chronic systolic/diastolic heart failure, severe cardiomegaly with an ejection fraction of 25-30%, chronic atrial fibrillation, on long-term anticoagulation with Eliquis, also known to have severe right-sided heart failure , recurrent ascites requiring scheduled paracentesis every other week, recurrent right-sided pleural effusion requiring multiple thoracentesis and subsequent Pleurx catheter placement at [facility], insulin-dependent diabetes mellitus, history of lower extremity DVTs and pulmonary embolism, CAD and COPD. He presented here again yesterday with complaints of shortness of breath and miguel st pain. He denied any fever, chills, night sweat No nausea, vomiting, diarrhea. His Pleurx catheter was removed last due to minimal output according to the patient. Chest x-ray reveals cardiomegaly with recurrent small right greater than left pleural effusions and bilateral mid to lower lung re ticulonodular edema/infiltrate. White count 5.1. Hemoglobin 12.0. INR 1.3. Sodium 135. Potassium 4.7. Creatinine 0.59. Influenza screen negative. Troponin 0.017. Pro BNP 3540. He is seen today in consultationon the regular medical floor. He is somewhat drowsy. Recently receiving Dilaudid for atypical chest pain. He was hypoxemic at 885 on room air. Currently 92% on 2 L/m per nasal cannula. On today's evaluation of 05/24/2019 the patient is being seen for a follow-up. Is complaining of shortness of breath. He is not having any significant abdominal distention. As mentioned earlier the patient had insertion and removal of a Pleurx catheter on the right lung as the amount of output had dropped significantly. At the time of his arrival his proBNP level was elevated and there was some component of fluid overload and pulmonary edema. He was given IV Lasix. We are limited with diuresis as the patient's blood pressure is borderline low. No fever. No chills. No altered mentation. On today's evaluation of 05/25/2019 and seeing this patient for a follow-up. Slightly better compared to yesterday. Chest x-ray showing stable CHF with stable right-sided pleural effusion. No significant worsening in his condition pain no major swelling lower extremities. No fever or chills. He remains IV Lasix. Blood work and electrodes are all noted and the patient is a negative fluid balance. BUN is 41 with a creatinine of 1.1. Sodium is at 132. the patient is seen today 05/26/2019 in follow-up on the regular medical floor. He is awake and alert. Still quite weak. Continues with crackles in the right lung base. Still some lower extremity edema. Continues on 4 L nasal cannula to maintain O2 saturations in the 90s. Continued on IV Lasix 40 mg every 8 hours. Continued on bronchodilators. Anticoagulated with Eliquis. Sodium 136. Potassium 4.3. Creatinine 1.09. Objective - Vital Signs Vital signs: Vital Signs Temp 97.5 F L 05/26/19 05:00 Pulse 68 05/26/19 12:37 Resp 20 05/26/19 05:00 BP 103/68 05/26/19 05:00 Pulse Ox 99 05/26/19 05:00 Intake & Output 05/25/19 05/26/19 05/26/19 18:59 06:59 18:59 Intake Total 290 Output Total 300 750 Balance -300 -460 Intake: Oral 290 Output: Urine 300 750 Other: Voiding Method Toilet Toilet Toilet Urinal Urinal Urinal # Voids 2 1 - Exam GENERAL EXAM: Alert, comfortable, pleasant 64-year-old gentleman, on 4 L nasal cannula, comfortable in no apparent distress. HEAD: Normocephalic. EYES: Normal reaction of pupils, equal size. NOSE: Clear with pink turbinates. THROAT: No erythema or exudates. NECK: No masses, no JVD. CHEST: No chest wall deformity. LUNGS: Equal air entry with few scattered rhonchi, crackles in the right base,end expiratory wheeze, diminished. CVS: S1 and S2 normal with no audible murmur, regular rhythm. ABDOMEN: No hepatosplenomegaly, normal bowel sounds, no guarding or rigidity. SPINE: No scoliosis or deformity SKIN: No rashes CENTRAL NERVOUS SYSTEM: No focal deficits, tone is normal in all 4 extremities. EXTREMITIES: There is no peripheral edema. positive clubbing, no cyanosis. Peripheral pulses are intact. - Labs CBC & Chem 7: 05/22/19 18:50 05/26/19 09:16 Labs: Abnormal Lab Results - Last 24 Hours (Table) 05/26/19 Range/Units 09:16 Sodium 136 L (137-145) mmol/L BUN 36 H (9-20) mg/dL Glucose 106 H (74-99) mg/dL Microbiology - Last 24 Hours (Table) 05/22/19 19:38 Blood Culture - Preliminary Blood No Growth after 72 hours Assessment and Plan Assessment: #1. Left-sided chest pain, possibly musculoskeletal in nature, troponins were negative, EKG without acute ischemic changes #2. History of recurrent right-sided pleural effusion, the patient had a right- sided Pleurx catheter placed at [facility] and has been following up there for 3 "flushes" due to thick red clotting and not draining. Pleurx catheter removed last week at [facility] for minimal output according to the patient. #3. Chronic ascites requiring multiple recurrent paracentesis #4. Acute exacerbation of chronic congestive heart failure with systolic dysfunction #5. Recent history of pulmonary embolism and patient is on Eliquis for anticoagulation #6. Ischemic cardiomyopathy with ejection fraction of 20-25% #7. Chronic lower extremity edema negative for DVT. Negative Doppler of the lower extremities today. The patient is on Lovenox in the outpatient setting. #8. History of laryngeal cancer treated with radiation #9. Hypertension, hyperlipidemia #10. Diabetes mellitus #11. History of coronary artery disease and previous history of stenting #12. Chronic and ongoing history of smoking #13 History of COPD with current mild exacerbation Plan: Patient was seen and evaluated by Dr. Mc. We will continue the current DuoNeb inhalations, Pulmicort and Perforomist inhalations, IV Solu-Medrol. C ontinue IV diuretics. Continue Eliquis. No significant fluid this admission thus far. No plans for thoracentesis. We will continue to follow I, the cosigning physician, performed a history & physical examination of the patient. Lungs sounds few scattered rhonchi, crackles in the bases, more so on the right, end expiratory wheeze, diminished. Maintaining good O2 saturations in the 90s on 4 L/m per nasal cannula. I discussed the assessment and plan of care with my nurse practitioner, Lorri Hoffmann. I attest to the above note as dictated by her.
[2019-05-26 14:26] VITALS: BMI 29.3
[2019-05-26] MEDS ORDERED: ONDANSETRON 4 MG/2 ML VIAL IVP STA (15:24)
--- NOTE | 2019-05-29 08:46 | P.DS ---
Providers Date of admission: 05/22/19 20:30 Expected date of discharge: 05/26/19 Attending physician: Andrews Escobar Consults: 05/22/19 20:36 Consult Physician Routine Consulting Provider: Tonie Garcia Consult Reason/Comments: COPD Do you want consulting provider notified?: Yes Consult Physician Routine Consulting Provider: Jose Rafael Sharif Consult Reason/Comments: CHF Do you want consulting provider notified?: Yes Primary care physician: Andrews Escobar Hospital Course: Final diagnosis Chest pain without troponin elevation Acute on chronic systolic and diastolic heart failure EF of 25% Chronic persistent atrial fibrillation controlled, anticoagulant Eliquis Chronic ascites history of paracentesis Chronic lower extremity edema History of laryngeal cancer with radiation treatments History of hypertension History of hyperlipidemia Diabetes mellitus type 2 History of COPD with current mild exacerbation Discharge disposition Patient is being discharged in a stable condition with guarded prognosis to home. Patient will follow-up with Dr. Escobar upon discharge. Patient will continue with [facility] along with [facility] palliative care in the outpatient setting. Total time taken is greater than 35 minutes. History of present illness This is an 64-year-old male who was recently admitted with increased shortness of breath and diffuse chest pain and was being closely monitored. Patient is known to have a history of chronic ascites with paracentesis and recently underwent pleural drain from [facility]. Cardiology and pulmonary following. Patient will continue with [facility] and palliative care with [facility] has also been arranged. Most recent chest x-ray yesterday continues to so stable CHF with some stable right-sided pleural effusion and patient remained on IV Lasix for diuresis. Patient will continue with oral Lasix in the outpatient setting along with bronchodilators. She will be following up with Dr. Escobar in the office upon discharge. Currently no reports of chest pain, worsening shortness of breath, or palpitations. Patient is afebrile. No reports of nausea or vomiting and patient is tolerating diet. Guarded progno sis. On exam vital signs are stable. Temp is 97.5 F, pulse is 68, respirations are 20, blood pressure is 103/68, oxygen saturation is 99% on 4 liters via nasal cannula. Cardio S1, S2 are muffled. Respiratory shows diminished breath sounds at the bases with a few scattered rhonchi and crackles noted. Abdomen is soft , mildly distended, and nontender. Nervous system shows no focal deficits. Please refer to medication reconciliation sheet for a list of medications. Patient Condition at Discharge: Stable Plan - Discharge Summary Discharge Rx Participant: Yes New Discharge Prescriptions: New Ipratropium-Albuterol Nebulize [Duoneb 0.5 mg-3 mg/3 ml Soln] 3 ml INHALATION RT-QID #120 ml Ipratropium-Albuterol Nebulize [Duoneb 0.5 mg-3 mg/3 ml Soln] 3 ml INHALATION RT-Q4H PRN ml PRN Reason: Shortness Of Breath Or Wheezing Mag Hydrox/Al Hydrox/Simeth [Maalox] 30 ml PO Q4HR PRN #240 ml PRN Reason: Gi Upset Continue Isosorbide Mononitrate ER [Imdur] 30 mg PO DAILY #30 tab.er.24h Nitroglycerin Sl Tabs [Nitrostat] 0.4 mg SUBLINGUAL Q5M PRN #100 tab PRN Reason: Chest Pain Ipratropium/Albuterol Sulfate [Combivent Respimat Inhaler] 2 puff INHALATION RT-BID HYDROcodone/APAP 10-325MG [[place] 10-325] 1 tab PO Q4HR PRN PRN Reason: Pain Furosemide [Lasix] 40 mg PO BID Ondansetron [Zofran] 8 mg PO BID PRN PRN Reason: Nausea And Vomiting Metoprolol Tartrate [Lopressor] 50 mg PO BID Pantoprazole [Protonix] 40 mg PO DAILY Spironolactone [Aldactone] 75 mg PO BID tab Apixaban [Eliquis] 5 mg PO BID #60 tab Multivitamins, Thera [Multivitamin (formulary)] 1 tab PO DAILY@1200 Discontinued Ipratropium-Albuterol Nebulize [Duoneb 0.5 mg-3 mg/3 ml Soln] 3 ml INHALATION RT-BID Discharge Medication List Isosorbide Mononitrate ER [Imdur] 30 mg PO DAILY #30 tab.er.24h 03/17/18 [Rx] Nitroglycerin Sl Tabs [Nitrostat] 0.4 mg SUBLINGUAL Q5M PRN #100 tab 03/17/18 [Rx] Ipratropium/Albuterol Sulfate [Combivent Respimat Inhaler] 2 puff INHALATION RT- BID 05/08/18 [History] HYDROcodone/APAP 10-325MG [[place] 10-325] 1 tab PO Q4HR PRN 08/23/18 [History] Furosemide [Lasix] 40 mg PO BID 01/22/19 [History] Ondansetron [Zofran] 8 mg PO BID PRN 01/22/19 [History] Metoprolol Tartrate [Lopressor] 50 mg PO BID 04/16/19 [History] Pantoprazole [Protonix] 40 mg PO DAILY 04/16/19 [History] Apixaban [Eliquis] 5 mg PO BID #60 tab 04/24/19 [Rx] Spironolactone [Aldactone] 75 mg PO BID tab 04/24/19 [Rx] Multivitamins, Thera [Multivitamin (formulary)] 1 tab PO DAILY@1200 05/22/19 [History] Ipratropium-Albuterol Nebulize [Duoneb 0.5 mg-3 mg/3 ml Soln] 3 ml INHALATION RT-Q4H PRN ml 05/26/19 [Rx] Ipratropium-Albuterol Nebulize [Duoneb 0.5 mg-3 mg/3 ml Soln] 3 ml INHALATION RT-QID #120 ml 05/26/19 [Rx] Mag Hydrox/Al Hydrox/Simeth [Maalox] 30 ml PO Q4HR PRN #240 ml 05/26/19 [Rx] Follow up Appointment(s)/Referral(s): Andresw Escobar MD [Primary Care Provider] - 05/31/19 11:00 am Danielito Miller, [NON-STAFF] - (Palliative ) Patient Instructions/Handouts: Ipratropium/Albuterol (By breathing), Heart Failure (DC), COPD (Chronic Obstructive Pulmonary Disease) (DC) Activity/Diet/Wound Care/Special Instructions: Activity Limited until follow-up Follow-up with primary care provider upon discharge Follow-up with Danielito [facility] Palliative care Continue current diet Discharge Disposition: HOME WITH HOME HEALTH SERVICES
== END 2019-05-26 16:14 | disposition home health service (06) | DRG 292 ==
LOC: EC 18:28 → 6NMEDSUR 20:30 → 5NMEDONC 22:49
PROVIDERS: ADMIT Family Medicine; ATTEND Family Medicine
DX: I11.0 Hypertensive heart disease with heart failure (principal); J44.1 Chronic obstructive pulmonary disease with (acute) exacerbation; I48.19 Other persistent atrial fibrillation; I69.854 Hemiplegia and hemiparesis following other cerebrovascular disease affecting left non-dominant side; R18.8 Other ascites; I27.29 Other secondary pulmonary hypertension; E11.51 Type 2 diabetes mellitus with diabetic peripheral angiopathy without gangrene; I95.9 Hypotension, unspecified; I50.43 Acute on chronic combined systolic (congestive) and diastolic (congestive) heart failure; I25.10 Atherosclerotic heart disease of native coronary artery without angina pectoris; N42.9 Disorder of prostate, unspecified; K21.9 Gastro-esophageal reflux disease without esophagitis; I25.5 Ischemic cardiomyopathy; G89.29 Other chronic pain; K57.90 Diverticulosis of intestine, part unspecified, without perforation or abscess without bleeding; F41.9 Anxiety disorder, unspecified; F32.9 Major depressive disorder, single episode, unspecified; E78.5 Hyperlipidemia, unspecified; I45.10 Unspecified right bundle-branch block; I08.1 Rheumatic disorders of both mitral and tricuspid valves; R09.02 Hypoxemia; K76.9 Liver disease, unspecified; E87.5 Hyperkalemia; Z51.5 Encounter for palliative care; I25.2 Old myocardial infarction; Z79.01 Long term (current) use of anticoagulants; Z99.81 Dependence on supplemental oxygen; Z79.899 Other long term (current) drug therapy; Z95.5 Presence of coronary angioplasty implant and graft; Z87.440 Personal history of urinary (tract) infections; Z86.711 Personal history of pulmonary embolism; Z86.718 Personal history of other venous thrombosis and embolism; Z92.3 Personal history of irradiation; Z85.21 Personal history of malignant neoplasm of larynx; Z87.828 Personal history of other (healed) physical injury and trauma; Z87.81 Personal history of (healed) traumatic fracture; Z95.828 Presence of other vascular implants and grafts; Z96.7 Presence of other bone and tendon implants; Z98.890 Other specified postprocedural states; Z87.891 Personal history of nicotine dependence; Z88.5 Allergy status to narcotic agent; Z88.8 Allergy status to other drugs, medicaments and biological substances; Z82.49 Family history of ischemic heart disease and other diseases of the circulatory system; Z83.3 Family history of diabetes mellitus
CPT/HCPCS: 36415; 71046; 80048; 80053; 83605; 83735; 83880; 84484; 85025; 85610; 85730; 87040; 87502; 93005; 94640; 94760; 96374; 96375; 99285